=== PATIENT | female | born 1960 | race Hispanic/Latino ===

== ENCOUNTER 2017-05-18 15:55 | Inpatient (IN) | payer MEDICARE, MEDICAID ==
[2017-05-18 15:55] VITALS: BMI 26.3
[2017-05-18] MEDS ORDERED: Albuterol-Ipratrop 3 mg / 0.5 (3 ml) UD IH STA ×2 (16:20→16:21)
--- NOTE | 2017-05-18 16:27 | ED PDOC ---
HPI: SOB/CHF/COPD Time Seen by Provider: 05/18/17 16:13 Chief Complaint (Nursing): Shortness Of Breath Chief Complaint (Provider): Shortness Of Breath History Per: Patient History/Exam Limitations: no limitations Onset/Duration Of Symptoms: Days (x 4-5 days) Current Symptoms Are (Timing): Still Present Associated Symptoms: Productive Cough Additional Complaint(s): Keri is a 56 y/o female who with a past medical history of COPD, who presents to the ED complaining of progressive shortness of breath associated with cough, ongoing for 4-5 days. Cough is productive of white sputum, described as "different than normal". No improvement with nebulizer treatments and prednisone at home. Denies fever, dysuria, and abdominal pain. Patient also complaining of urinary frequency. PMD: Randy Interiano Past Medical History Reviewed: Historical Data, Nursing Documentation, Vital Signs Vital Signs: Last Vital Signs Temp 99.2 F 05/18/17 15:57 Pulse 106 H 05/18/17 15:57 Resp 24 05/18/17 15:57 BP 159/92 H 05/18/17 15:57 Pulse Ox 98 05/18/17 16:52 - Medical History PMH: Anxiety, Asthma, Back Problems, COPD, Pneumothorax Denies: Arthritis, CHF, HIV, HTN, Hypercholesterolemia, Hypothyroidism, Chronic Kidney Disease, Rheumatoid Arthritis - Family History Family History: States: Unknown Family Hx - Home Medications Home Medications: Ambulatory Orders Medication Instructions Recorded Alprazolam [Xanax] 0.5 mg PO BID PRN 04/17/16 Acetylcysteine [Mucomyst 10% 4ML] 2 ml IH RBID #30 mary 09/22/16 Albuterol/Ipratropium [Duoneb 3 3 ml INH RQ4 PRN #30 neb 09/22/16 mg/0.5 mg (3 ml) UD] Albuterol/Ipratropium [Duoneb 3 3 ml INH RQID #30 neb 09/22/16 mg/0.5 mg (3 ml) UD] Cholecalciferol [Vitamin D 1000 IU] 1,000 iu PO DAILY #30 tab 09/22/16 Fluticasone Propionate [Flonase] 2 spr KIRBY HS #1 bottle 09/22/16 Mometasone [Asmanex Twisthaler 110 1 puff INH BID #1 inhaler 09/22/16 MCG] Pantoprazole [Protonix EC Tab] 40 mg PO DAILY #30 ect 09/22/16 Sodium Chloride Nasal [place] [[place] 1 sprays KIRBY Q4 PRN #1 bottle 09/22/16 Nasal [place]] guaiFENesin [Robitussin] 200 mg PO Q6 PRN #30 udc 09/22/16 oxyCODONE/Acetaminophen [Percocet 1 tab PO Q6 PRN #30 tab 09/22/16 5/325 mg Tab] - Allergies Allergies/Adverse Reactions: Allergies Allergy/AdvReac Type Severity Reaction Status Date / Time Sulfa (Sulfonamide Allergy RASH Verified 09/22/16 15:53 Antibiotics) Review of Systems ROS Statement: Except As Marked, All Systems Reviewed And Found Negative Constitutional: Negative for: Fever Respiratory: Positive for: Cough, Shortness of Breath, Sputum (white) Gastrointestinal: Negative for: Abdominal Pain Genitourinary Female: Positive for: Frequency. Negative for: Dysuria Physical Exam - Reviewed Nursing Documentation Reviewed: Yes Vital Signs Reviewed: Yes - Physical Exam Appears: Positive for: Non-toxic, No Acute Distress Head Exam: Positive for: ATRAUMATIC, NORMAL INSPECTION, NORMOCEPHALIC Skin: Positive for: Normal Color, Warm, Dry Eye Exam: Positive for: EOMI, Normal appearance, PERRL Neck: Positive for: Normal, Painless ROM, Supple Cardiovascular/Chest: Positive for: Regular Rate, Rhythm. Negative for: Murmur Respiratory: Positive for: Decreased Breath Sounds (diminished breath sounds bilaterally), Respiratory Distress (mild). Negative for: Wheezing Gastrointestinal/Abdominal: Positive for: Normal Exam, Soft. Negative for: Tenderness Back: Positive for: Normal Inspection. Negative for: Vertebral Tenderness Extremity: Positive for: Normal ROM. Negative for: Tenderness, Deformity, Swelling Neurologic/Psych: Positive for: Alert, Oriented - Laboratory Results Result Diagrams: 05/18/17 16:30 - ECG O2 Sat by Pulse Oximetry: 96 (RA) Pulse Ox Interpretation: Normal Medical Decision Making Medical Decision Making: Time: 16:01 Initial Plan: --EKG --CMP --Urine dipstick --Urine culture --CXR 2 views --Duoneb and Solu-medrol treatment given --Peak Flow pre/post treatment --Reevaluation Scribe Attestation: Documented by Winnie Gary, acting as a scribe for Hussain Bass MD Provider Scribe Attestation: All medical record entries made by the Scribe were at my direction and personally dictated by me. I have reviewed the chart and agree that the record accurately reflects my personal performance of the history, physical exam, medical decision making, and the department course for this patient. I have also personally directed, reviewed, and agree with the discharge instructions and disposition. Disposition - Clinical Impression Clinical Impression: COPD exacerbation - Patient ED Disposition Is Patient to be Admitted: Yes - Disposition Disposition Time: 17:54 Condition: FAIR Forms: Shut Down (Slovenian) - Pt Status Changed To: Hospital Disposition Of: Observation - POA Present On Arrival: None
[2017-05-18] MEDS ORDERED: Albuterol-Ipratrop 3 mg / 0.5 (3 ml) UD ONE (16:38)
[2017-05-18 16:56] LABS: ALB/GLOB RATIO 1.5 (1.0-2.1); ALBUMIN 4.2 g/dL (3.5-5.0); ALT/SGPT 43 U/L (9-52); AST/SGOT 24 U/L (14-36); BLOOD UREA NITROGEN 20 mg/dl (7-17); CALCIUM 9.6 mg/dL (8.4-10.2); GFR AFRICAN-AMERICAN > 60; GFR NON-AFRICAN AMERICAN > 60
--- NOTE | 2017-05-18 17:12 | RAD ---
HISTORY: Shortness of breath. COMPARISON: 09/15/2016. TECHNIQUE: Chest PA and lateral FINDINGS: LUNGS: Hyperinflation, manifestations of COPD. No active pulmonary disease. Biapical scarring unchanged. PLEURA: No significant pleural effusion identified. No pneumothorax apparent. CARDIOVASCULAR: Normal. OSSEOUS STRUCTURES: No significant abnormalities. VISUALIZED UPPER ABDOMEN: Normal. OTHER FINDINGS: None. IMPRESSION: No active disease. No significant interval change compared to the prior examination(s).
[2017-05-18 18:02] LABS: BASO % 0.3 % (0.0-2.0); EOS % 0.1 % (0.0-4.0); HEMOGLOBIN 13.6 g/dL (12.0-16.0); LYMPH # 1.6 K/uL (1.0-4.3); LYMPH % 13.3 % (20.0-40.0); MEAN CELL VOLUME 91.9 fl (81.0-99.0); MEAN CORPUSCULAR HEMOGLOBIN 29.9 pg (27.0-31.0); MEAN CORPUSCULAR HGB CONC 32.5 g/dL (33.0-37.0); MEAN PLATELET VOLUME 7.6 fl (7.2-11.7); MONO # 1.3 K/uL (0.0-0.8); MONO % 10.3 % (0.0-10.0); NEUT # 9.2 K/uL (1.8-7.0); RBC 4.55 Mil/uL (3.80-5.20); RED CELL DISTRIBUTION WIDTH 14.3 % (11.5-14.5); WHITE BLOOD COUNT 12.1 K/uL (4.8-10.8)
[2017-05-18] MEDS ORDERED: Nasal Spray(Ocean spray) NAS PRN (22:07)
[2017-05-18] MEDS: Albuterol-Ipratrop 3 mg / 0.5 (3 ml) UD INH PRN (23:26)
[2017-05-19] MEDS: methylPREDNISolone 40 MG/50ML NS IVPB SCH ×3 (00:43→17:24)
[2017-05-19] MEDS: Albuterol-Ipratrop 3 mg / 0.5 (3 ml) UD INH PRN ×2 (05:03→07:46)
[2017-05-19] MEDS: Acetylcysteine 10% 4 ML IH SCH ×2 (07:46→19:30)
[2017-05-19] MEDS: Enoxaparin 40 mg Syringe SC SCH (09:09)
[2017-05-19] MEDS: Mometasone 110 mcg/puff-30 puff Inh INH SCH ×2 (09:10→17:24)
[2017-05-19] MEDS: Pantoprazole 40 mg EC Tab PO SCH (09:10)
[2017-05-19] MEDS: guaiFENesin 200 mg/10 ml Syrup UD PO PRN ×2 (09:24→21:43)
[2017-05-19] MEDS: Oxycodone/Acetaminophen 5/325 mg Tab PO PRN (09:25)
[2017-05-19] MEDS ORDERED: Sodium Chloride 3% for Inhalation 4 ML VIAL.NEB IH PRN (10:12)
--- NOTE | 2017-05-19 10:19 | CP.PCM.CON ---
History of Present Illness - History of Present Illness History of Present Illness: This 56 year old female, a former cigarette smoker who suffers from pulmonary MICHELLE at an advanced stage was admitted through the emergency room because of worsening SOB and productive cough which has not responded to the usual therapies at home. She did present with leukocytosis and pyuria without fever and a chest x-ray showing hyperinflation and biapical parenchymal scarring. She does have previously diagnosed JIMENEZ after she presented with spontaneous pneumothorax which is complicated by bronchospastic disease from associated COPD. She is oxygen dependant at home and is seeking evaluation for possible lung transplant. She has adequate oxygenation at rest on supplemental O2, but is markedly dyspneic with simple activities of daily life. Review of Systems - Review of Systems All systems: reviewed and no additional remarkable complaints except - Constitutional Constitutional: Fatigue, Malaise, Weight Gain, Weakness - Respiratory Respiratory: As Per HPI, Cough, Dyspnea Past Patient History - Past Medical History & Family History Past Medical History?: Yes Pertinent Family History: lung cancer - Past Social History Smoking Status: Former Smoker Chewing Tobacco Use: No Cigar Use: No Alcohol: Other (former moderate intake) Drugs: Denies Home Situation {Lives}: Alone - CARDIAC Hx Cardiac Disorders: No - PULMONARY Hx Chronic Obstructive Pulmonary Disease (COPD): Yes Other/Comment: Lymphangioleiomyomatosis - NEUROLOGICAL Hx Neurological Disorder: No Other/Comment: History of Chronic Fatigue Syndrome; may have been incorrectly diagnosed with fatigue resulting from chronic lung disease (JIMENEZ). - HEENT Hx HEENT Problems: No - RENAL Hx Chronic Kidney Disease: No - ENDOCRINE/METABOLIC Hx Endocrine Disorders: No - HEMATOLOGICAL/ONCOLOGICAL Hx Blood Disorders: No Hx Human Immunodeficiency Virus (HIV): No - INTEGUMENTARY Hx Dermatological Problems: No - MUSCULOSKELETAL/RHEUMATOLOGICAL Hx Back Pain: Yes Hx Falls: No - GASTROINTESTINAL Hx Gastrointestinal Disorders: No - GENITOURINARY/GYNECOLOGICAL Other/Comment: endometriosis,uterine fibroids - PSYCHIATRIC Hx Anxiety: Yes Hx Substance Use: No - SURGICAL HISTORY Hx Pulmonary Surgery: Yes (VATS lung biopsy and pleurodesis) Other/Comment: breast cyst removal (benign), D&C for uterine fibroids, chest tube x2 (spontaneous pneumothorax) with ling biopsy done on second episode. - ANESTHESIA Hx Anesthesia: Yes Hx Anesthesia Reactions: No Hx Malignant Hyperthermia: No Has any member of the family had a problem w/ anesthesia?: No Meds Allergies/Adverse Reactions: Allergies Allergy/AdvReac Type Severity Reaction Status Date / Time Sulfa (Sulfonamide Allergy RASH Verified 09/22/16 15:53 Antibiotics) - Medications Medications: Current Medications Acetylcysteine (Mucomyst 10% 4ml) 2 ml IH RBID [facility] Last Admin: 05/19/17 07:46 Dose: 2 ml Albuterol Sulfate (Albuterol 0.083% Inhal [place]idad (2.5 Mg/3 Ml) Ud) 2.5 mg INH RQ4 PRN PRN Reason: Shortness of Breath Albuterol/Ipratropium (Duoneb 3 Mg/0.5 Mg (3 Ml) Ud) 3 ml INH RQID DENISSE Alprazolam (Xanax) 0.5 mg PO BID PRN PRN Reason: Anxiety Cholecalciferol (Vitamin D) 1,000 iu PO DAILY [facility] Last Admin: 05/19/17 09:11 Dose: 1,000 iu Enoxaparin Sodium (Lovenox) 40 mg SC DAILY DENISSE PRN Reason: Protocol Last Admin: 05/19/17 09:09 Dose: 40 mg Fluticasone Propionate (Flonase) 2 spr KIRBY HS [facility] Guaifenesin (Robitussin) 200 mg PO Q6 PRN PRN Reason: Cough Last Admin: 05/19/17 09:24 Dose: 200 mg Methylprednisolone 40 mg/ (Sodium Chloride) 50 mls @ 100 mls/hr IVPB Q8 [facility] Last Admin: 05/19/17 09:10 Dose: 100 mls/hr Mometasone Furoate (Asmanex Twisthaler 110 Mcg) 1 puff INH BID [facility] Last Admin: 05/19/17 09:10 Dose: 1 puff Oxycodone/Acetaminophen (Percocet 5/325 Mg Tab) 1 tab PO Q6 PRN PRN Reason: Pain, moderate (4-7) Stop: 05/21/17 22:08 Last Admin: 05/19/17 09:25 Dose: 1 tab Pantoprazole Sodium (Protonix Ec Tab) 40 mg PO DAILY [facility] Last Admin: 05/19/17 09:10 Dose: 40 mg Sodium Chloride ([place] Nasal [place]) 1 sprays KIRBY Q4 PRN PRN Reason: Nasal congestion Physical Exam - Additional Findings Additional findings: Tachypneic at rest. Well-developed female, mildly overweight. Cushingoid facies. Trace dependent edema of both ankles, no cyanosis. No calf tenderness or palpable venous cords. No palpable lymphadenopathy. Pharynx is pink and mucous membranes are moist. No exudate. Neck is supple and trachea is midline, no neck vein distention or carotid bruit. No palpable thyromegaly. No dullness to chest percussion. No subcutaneous emphysema. Breath sounds are present bilaterally, diminished. Inspiratory phase appears shortened. Few dry rales are heard posteriorly. Occasional sonorous rhonchi in the lower lobes bilaterally. No audible wheezing. No bronchial breathing or egophony. Heart sounds are well heard. Mildly tachycardic rate. No murmur is heard. Abdomen is soft and nontender. Bowel sounds are well heard. No mass. Results - Vital Signs Recent Vital Signs: Last Vital Signs Temp 97.8 F 05/19/17 08:00 Pulse 80 05/19/17 08:00 Resp 18 05/19/17 08:00 BP 136/85 05/19/17 08:00 Pulse Ox 100 05/19/17 08:00 - Labs Result Diagrams: 05/18/17 17:50 05/18/17 16:30 Assessment & Plan (1) SOB (shortness of breath) Status: Acute Priority: High (2) Lymphangioleiomyomatosis Status: Chronic Priority: High (3) COPD exacerbation Status: Chronic Priority: High - Assessment and Plan (Free Text) Plan: Treat for exacerbation of COPD. Hopefully obtain increased home care allowance. [facility] - Date & Time Date: 05/19/17 Time: 10:18
--- NOTE | 2017-05-19 10:45 | PCM.RRTMUL ---
<Alyson Lincoln - Last Filed: 05/19/17 10:48> PSYCHOLOGIST RESEARCH ASSISTANT Nurse Assessment - Situation Location:: [address] [place] [address] PSYCHOLOGIST RESEARCH ASSISTANT Reason for Call: Respiratory Distress, O2 Saturation below 90% PSYCHOLOGIST RESEARCH ASSISTANT Called By: RN - IV IV Inserted during PSYCHOLOGIST RESEARCH ASSISTANT?: No - Respiratory Oxygen Delivery Method:: Venturi Mask Received Nebulizer Treatments:: No Was the Patient Ventilated with Bag/Mask 100% O2?: No Secretions Suctioned?: No Was the Patient Intubated?: No Was the Patient Placed on a Ventilator?: No - Diagnostic Test Ordered EKG:: No Chest X-Ray:: No CT Scan:: No CPR started during PSYCHOLOGIST RESEARCH ASSISTANT?: No - Vital Signs Blood Pressure:: 172/108 Pulse Rate:: 120 Respiratory Rate:: 40 Temperature:: 97.4 F Oxygen Saturation:: 68 - Gavin Coma Scale Coma Scale Eye Opening:: Spontaneous Coma Scale Motor:: Obeys Commands Movement Coma Scale Verbal:: Oriented Coma Scale Total:: 15 - Time PSYCHOLOGIST RESEARCH ASSISTANT Ended Time PSYCHOLOGIST RESEARCH ASSISTANT Ended:: 10:20 - Vital Signs at end of PSYCHOLOGIST RESEARCH ASSISTANT Blood Pressure:: 164/103 Pulse Rate:: 123 Respiratory Rate:: 35 Temperature:: 97.4 F O2 Sat by Pulse Oximetry:: 97 - Recommendations 5) PSYCHOLOGIST RESEARCH ASSISTANT Level of Care Recommendations: Remain in current setting 6) Notifications: Attending Physician, Consultations I.Reason for PSYCHOLOGIST RESEARCH ASSISTANT - A) Acute Change in Patient: Subjective: PSYCHOLOGIST RESEARCH ASSISTANT called at 10:03 am Pt is a 56 yo F with history of COPD, admitted for shortness of breath and COPD exacerbation; PSYCHOLOGIST RESEARCH ASSISTANT was called by RN due to O2 desaturation to 68%. Vital signs on arrival: BP 174/120, HR 122, RR 35 Patient appeared visibly short of breath, was using accessory muscles to breathe , but was able to speak throughout the PSYCHOLOGIST RESEARCH ASSISTANT. Decreased lung sounds bilaterally. Patient was placed on venturi mask at 10 L; O2 sat improved and antonia to 98%, pt' s condition and breathing improved. On exam post treatment, pt had decreased breath sounds/tightness. At the end of PSYCHOLOGIST RESEARCH ASSISTANT: BP came down to 151/89, HR 122, O2 sat 98%, RR 30 PSYCHOLOGIST RESEARCH ASSISTANT concluded 10:18 am Plan: Keep pt on venturi mask at 10L Continue current management Dr. Interiano (senior information systems architect consulted prior to PSYCHOLOGIST RESEARCH ASSISTANT) was present during PSYCHOLOGIST RESEARCH ASSISTANT as well <Helen Ayala - Last Filed: 05/19/17 19:18> Attending/Attestation - Attestation I have personally seen and examined this patient.: Yes I have fully participated in the care of the patient.: Yes I have reviewed all pertinent clinical information, including history, physical exam and plan: Yes Notes (Text): Pt seen and examined with the residents during the PSYCHOLOGIST RESEARCH ASSISTANT Acute on chronic Respiratory Failure sec to COPD exacerbation, Hx of JIMENEZ - pt place on Ventimask at 50% FiO2 - Duoneb neb treatment - cont IV Solumedrol - Dr Interiano - pt's District Associate Judge present during the PSYCHOLOGIST RESEARCH ASSISTANT
[2017-05-19] MEDS: Albuterol-Ipratrop 3 mg / 0.5 (3 ml) UD INH SCH ×2 (19:30)
--- NOTE | 2017-05-19 20:11 | CP.PCM.HP ---
History of Present Illness - History of Present Illness History of Present Illness: 56 yo admitted for SOB Present on Admission - Present on Admission Any Indicators Present on Admission: No Past Patient History - Past Medical History & Family History Past Medical History?: Yes - Past Social History Smoking Status: Former Smoker - CARDIAC Hx Cardiac Disorders: No - PULMONARY Hx Respiratory Disorders: Yes Hx Asthma: Yes Hx Chronic Obstructive Pulmonary Disease (COPD): Yes - NEUROLOGICAL Hx Neurological Disorder: No - HEENT Hx HEENT Problems: No - RENAL Hx Chronic Kidney Disease: No - ENDOCRINE/METABOLIC Hx Endocrine Disorders: No - HEMATOLOGICAL/ONCOLOGICAL Hx Blood Disorders: No Hx Human Immunodeficiency Virus (HIV): No - INTEGUMENTARY Hx Dermatological Problems: No - MUSCULOSKELETAL/RHEUMATOLOGICAL Hx Musculoskeletal Disorders: Yes Hx Back Pain: Yes Hx Falls: No - GASTROINTESTINAL Hx Gastrointestinal Disorders: No - GENITOURINARY/GYNECOLOGICAL Hx Genitourinary Disorders: Yes Other/Comment: endometriosis,uterine fibroids - PSYCHIATRIC Hx Psychophysiologic Disorder: Yes Hx Anxiety: Yes Hx Substance Use: No - SURGICAL HISTORY Hx Surgeries: Yes Hx Pulmonary Surgery: Yes (VATS lung biopsy and pleurodesis) Other/Comment: breast cyst removal(benign),D&C for uterine fibroids, chest tube x2 (spontaneous pneumothorax). - ANESTHESIA Hx Anesthesia: Yes Hx Anesthesia Reactions: No Hx Malignant Hyperthermia: No Has any member of the family had a problem w/ anesthesia?: No Meds Allergies/Adverse Reactions: Allergies Allergy/AdvReac Type Severity Reaction Status Date / Time Sulfa (Sulfonamide Allergy RASH Verified 09/22/16 15:53 Antibiotics) Physical Exam - Respiratory Exam Respiratory Exam: Respiratory Distress, NORMAL BREATHING PATTERN - Cardiovascular Exam Cardiovascular Exam: REGULAR RHYTHM - GI/Abdominal Exam GI & Abdominal Exam: Normal Bowel Sounds Results - Vital Signs Recent Vital Signs: Last Vital Signs Temp 97.7 F 05/19/17 16:00 Pulse 100 H 05/19/17 16:00 Resp 18 05/19/17 16:00 BP 122/81 05/19/17 16:00 Pulse Ox 100 05/19/17 16:00 - Labs Result Diagrams: 05/18/17 17:50 05/18/17 16:30 Assessment & Plan - Assessment and Plan (Free Text) Assessment: COPD Lymphangioleiomyomatosis S/P MAGAZINE WORKER Hypoxemia Pulmonary B-agonists Steroids Lung transplant ?? UTI culture Obesity Chronic Pain Cont meds Mood changes No major depression HDL 146!
[2017-05-20] MEDS: methylPREDNISolone 40 MG/50ML NS IVPB SCH ×2 (00:03→09:26)
[2017-05-20] MEDS: Oxycodone/Acetaminophen 5/325 mg Tab PO PRN ×3 (00:46→21:05)
[2017-05-20 01:55] LABS: SQUAMOUS EPITHIAL 1 /hpf (0-5); URINE BACTERIA OCC (<OCC); URINE BILIRUBIN NEGATIVE (NEGATIVE); URINE CLARITY SLIGHTY-CLOUDY (Clear); URINE COLOR YELLOW (YELLOW); URINE GLUCOSE (UA) NEG (Normal); URINE LEUKOCYTE ESTERASE MOD Leu/uL (Negative); URINE NITRATE NEGATIVE (NEGATIVE); URINE PROTEIN NEGATIVE (NEGATIVE); URINE UROBILINOGEN 0.2-1.0 mg/dL (0.2-1.0)
[2017-05-20 02:02] LABS: URINE BLOOD SMALL (NEGATIVE)
[2017-05-20] MEDS: Albuterol 0.083% Inhal Sol (2.5 mg/3 mL) UD INH PRN (02:52)
[2017-05-20] MEDS: guaiFENesin 200 mg/10 ml Syrup UD PO PRN ×3 (06:54→22:52)
[2017-05-20] MEDS: Albuterol-Ipratrop 3 mg / 0.5 (3 ml) UD INH SCH ×4 (07:29→19:11)
[2017-05-20] MEDS: Acetylcysteine 10% 4 ML IH SCH ×2 (07:29→19:11)
--- NOTE | 2017-05-20 07:43 | CARD ---
APPROVED REPORT EKG Measurement Heart [id number] <Conclusion> Sinus tachycardia Right atrial enlargement Pulmonary disease pattern Abnormal ECG
[2017-05-20] MEDS: Pantoprazole 40 mg EC Tab PO SCH (09:20)
[2017-05-20] MEDS: Enoxaparin 40 mg Syringe SC SCH (09:20)
[2017-05-20] MEDS: Mometasone 110 mcg/puff-30 puff Inh INH SCH (09:20)
--- NOTE | 2017-05-20 11:26 | CP.PCM.PN ---
Subjective - Date & Time of Evaluation Date of Evaluation: 05/20/17 Time of Evaluation: 11:23 - Subjective Subjective: More comfortable on venti-mask. Still tachypneic @ 22 BPM. Oxygen saturation is good. Flushed facies with mild cushingoid effect. Neck is supple and trachea midline. No dullness on chest percussion. No rales or wheezes heard. Few rhonchi bilaterally. Breath sounds are decreased bilaterally. Begin NPPV support nocturnally to allow rest for respiratory muscles. Continue O2 via mask for daytime. Reduce corticosteroid dose. Case management referral for home [facility] Consider beginning sirolimus immune suppressive therapy. Objective - Vital Signs/Intake and Output Vital Signs (last 24 hours): Temp Pulse Resp BP Pulse Ox 98.2 F 97 H 18 133/78 100 05/20/17 08:02 05/20/17 09:00 05/20/17 08:02 05/20/17 08:02 05/20/17 08:02 Intake and Output: 05/19/17 05/20/17 23:59 11:59 Intake Total 810 Balance 810 - Medications Medications: Current Medications Acetylcysteine (Mucomyst 10% 4ml) 2 ml IH RBID [facility] Last Admin: 05/20/17 07:29 Dose: 2 ml Albuterol Sulfate (Albuterol 0.083% Inhal [place] (2.5 Mg/3 Ml) Ud) 2.5 mg INH RQ4 PRN PRN Reason: Shortness of Breath Last Admin: 05/20/17 02:52 Dose: 2.5 mg Albuterol/Ipratropium (Duoneb 3 Mg/0.5 Mg (3 Ml) Ud) 3 ml INH RQID DENISSE Last Admin: 05/20/17 07:29 Dose: 3 ml Alprazolam (Xanax) 0.5 mg PO BID PRN PRN Reason: Anxiety Cholecalciferol (Vitamin D) 1,000 iu PO DAILY [facility] Last Admin: 05/20/17 09:20 Dose: 1,000 iu Enoxaparin Sodium (Lovenox) 40 mg SC DAILY DENISSE PRN Reason: Protocol Last Admin: 05/20/17 09:20 Dose: 40 mg Fluticasone Propionate (Flonase) 2 spr KIRBY HS [facility] Last Admin: 05/19/17 21:42 Dose: 2 spr Guaifenesin (Robitussin) 200 mg PO Q6 PRN PRN Reason: Cough Last Admin: 05/20/17 06:54 Dose: 200 mg Methylprednisolone 40 mg/ (Sodium Chloride) 50 mls @ 100 mls/hr IVPB Q12 [facility] Mometasone Furoate (Asmanex Twisthaler 110 Mcg) 1 puff INH BID [facility] Last Admin: 05/20/17 09:20 Dose: 1 puff Oxycodone/Acetaminophen (Percocet 5/325 Mg Tab) 1 tab PO Q6 PRN PRN Reason: Pain, moderate (4-7) Stop: 05/21/17 22:08 Last Admin: 05/20/17 00:46 Dose: 1 tab Pantoprazole Sodium (Protonix Ec Tab) 40 mg PO DAILY [facility] Last Admin: 05/20/17 09:20 Dose: 40 mg Sodium Chloride ([place] Nasal [place]) 1 sprays KIRBY Q4 PRN PRN Reason: Nasal congestion Assessment and Plan (1) SOB (shortness of breath) Status: Acute (2) Lymphangioleiomyomatosis Status: Chronic (3) COPD exacerbation Status: Chronic
--- NOTE | 2017-05-20 19:09 | CP.PCM.PN ---
Subjective - Date & Time of Evaluation Date of Evaluation: 05/20/17 Time of Evaluation: 22:22 - Subjective Subjective: Above noted Objective - Vital Signs/Intake and Output Vital Signs (last 24 hours): Temp Pulse Resp BP Pulse Ox 98.5 F 94 H 16 122/75 99 05/20/17 16:35 05/20/17 16:35 05/20/17 16:35 05/20/17 16:35 05/20/17 16:35 - Medications Medications: Current Medications Acetylcysteine (Mucomyst 10% 4ml) 2 ml IH RBID [facility] Last Admin: 05/20/17 07:29 Dose: 2 ml Albuterol Sulfate (Albuterol 0.083% Inhal [place]idad (2.5 Mg/3 Ml) Ud) 2.5 mg INH RQ4 PRN PRN Reason: Shortness of Breath Last Admin: 05/20/17 02:52 Dose: 2.5 mg Albuterol/Ipratropium (Duoneb 3 Mg/0.5 Mg (3 Ml) Ud) 3 ml INH RQID [facility] Last Admin: 05/20/17 11:25 Dose: 3 ml Alprazolam (Xanax) 0.5 mg PO BID PRN PRN Reason: Anxiety Cholecalciferol (Vitamin D) 1,000 iu PO DAILY [facility] Last Admin: 05/20/17 09:20 Dose: 1,000 iu Enoxaparin Sodium (Lovenox) 40 mg SC DAILY DENISSE PRN Reason: Protocol Last Admin: 05/20/17 09:20 Dose: 40 mg Fluticasone Propionate (Flonase) 2 spr KIRBY HS [facility] Last Admin: 05/19/17 21:42 Dose: 2 spr Guaifenesin (Robitussin) 200 mg PO Q6 PRN PRN Reason: Cough Last Admin: 05/20/17 15:32 Dose: 200 mg Methylprednisolone 40 mg/ (Sodium Chloride) 50 mls @ 100 mls/hr IVPB Q12 [facility] Mometasone Furoate (Asmanex Twisthaler 110 Mcg) 1 puff INH BID [facility] Last Admin: 05/20/17 09:20 Dose: 1 puff Oxycodone/Acetaminophen (Percocet 5/325 Mg Tab) 1 tab PO Q6 PRN PRN Reason: Pain, moderate (4-7) Stop: 05/21/17 22:08 Last Admin: 05/20/17 14:07 Dose: 1 tab Pantoprazole Sodium (Protonix Ec Tab) 40 mg PO DAILY DENISSE Last Admin: 05/20/17 09:20 Dose: 40 mg Sodium Chloride ([place] Nasal [place]) 1 sprays KIRBY Q4 PRN PRN Reason: Nasal congestion - Respiratory Exam Respiratory Exam: Respiratory Distress, NORMAL BREATHING PATTERN - Cardiovascular Exam Cardiovascular Exam: REGULAR RHYTHM - GI/Abdominal Exam GI & Abdominal Exam: Normal Bowel Sounds Assessment and Plan - Assessment and Plan (Free Text) Assessment: COPD Lymphangioleiomyomatosis Hypoxemia NPPV Pulmonary B-agonists Steroids Lung transplant ?? UTI culture Obesity Chronic Pain Cont meds Mood changes No major depression HDL 146!
[2017-05-20] MEDS: methylPREDNISolone 40 MG in Sodium Chloride 0.9% 50 ML IVPB SCH (21:41)
[2017-05-21] MEDS: Oxycodone/Acetaminophen 5/325 mg Tab PO PRN ×2 (03:51→19:20)
[2017-05-21] MEDS: Acetylcysteine 10% 4 ML IH SCH ×2 (07:14→19:07)
[2017-05-21] MEDS: Albuterol-Ipratrop 3 mg / 0.5 (3 ml) UD INH SCH ×4 (07:15→19:07)
[2017-05-21] MEDS: Mometasone 110 mcg/puff-30 puff Inh INH SCH ×2 (08:34→16:44)
[2017-05-21] MEDS: Enoxaparin 40 mg Syringe SC SCH (08:34)
[2017-05-21] MEDS: Pantoprazole 40 mg EC Tab PO SCH (08:35)
[2017-05-21] MEDS: guaiFENesin 200 mg/10 ml Syrup UD PO PRN ×2 (10:36→16:44)
[2017-05-21] MEDS: methylPREDNISolone 40 MG in Sodium Chloride 0.9% 50 ML IVPB SCH ×2 (11:01→21:16)
--- NOTE | 2017-05-21 20:40 | CP.PCM.PN ---
Subjective - Date & Time of Evaluation Date of Evaluation: 05/21/17 Time of Evaluation: 22:22 - Subjective Subjective: Above noted Objective - Vital Signs/Intake and Output Vital Signs (last 24 hours): Temp Pulse Resp BP Pulse Ox 97.8 F 110 H 16 128/78 98 05/21/17 20:02 05/21/17 20:02 05/21/17 20:02 05/21/17 20:02 05/21/17 20:02 Intake and Output: 05/21/17 05/22/17 18:59 06:59 Intake Total 750 Balance 750 - Medications Medications: Current Medications Acetylcysteine (Mucomyst 10% 4ml) 2 ml IH RBID [facility] Last Admin: 05/21/17 19:07 Dose: 2 ml Albuterol Sulfate (Albuterol 0.083% Inhal [place]idad (2.5 Mg/3 Ml) Ud) 2.5 mg INH RQ4 PRN PRN Reason: Shortness of Breath Last Admin: 05/20/17 02:52 Dose: 2.5 mg Albuterol/Ipratropium (Duoneb 3 Mg/0.5 Mg (3 Ml) Ud) 3 ml INH RQID [facility] Last Admin: 05/21/17 19:07 Dose: 3 ml Alprazolam (Xanax) 0.5 mg PO BID PRN PRN Reason: Anxiety Cholecalciferol (Vitamin D) 1,000 iu PO DAILY [facility] Last Admin: 05/21/17 08:35 Dose: 1,000 iu Enoxaparin Sodium (Lovenox) 40 mg SC DAILY [facility] PRN Reason: Protocol Last Admin: 05/21/17 08:34 Dose: 40 mg Fluticasone Propionate (Flonase) 2 spr KIRBY HS [facility] Last Admin: 05/20/17 22:00 Dose: 2 spr Guaifenesin (Robitussin) 200 mg PO Q6 PRN PRN Reason: Cough Last Admin: 05/21/17 16:44 Dose: 200 mg Methylprednisolone 40 mg/ (Sodium Chloride) 50 mls @ 100 mls/hr IVPB Q12 [facility] Last Admin: 05/21/17 11:01 Dose: 100 mls/hr Mometasone Furoate (Asmanex Twisthaler 110 Mcg) 1 puff INH BID [facility] Last Admin: 05/21/17 16:44 Dose: 1 puff Oxycodone/Acetaminophen (Percocet 5/325 Mg Tab) 1 tab PO Q6 PRN PRN Reason: Pain, moderate (4-7) Stop: 05/21/17 22:08 Last Admin: 05/21/17 19:20 Dose: 1 tab Pantoprazole Sodium (Protonix Ec Tab) 40 mg PO DAILY [facility] Last Admin: 05/21/17 08:35 Dose: 40 mg Sodium Chloride ([place] Nasal [place]) 1 sprays KIRBY Q4 PRN PRN Reason: Nasal congestion Last Admin: 05/20/17 21:42 Dose: 1 spray - Respiratory Exam Respiratory Exam: NORMAL BREATHING PATTERN - Cardiovascular Exam Cardiovascular Exam: REGULAR RHYTHM - GI/Abdominal Exam GI & Abdominal Exam: Normal Bowel Sounds Assessment and Plan - Assessment and Plan (Free Text) Assessment: COPD Lymphangioleiomyomatosis Hypoxemia NPPV Pulmonary B-agonists Steroids Lung transplant ?? UTI culture ?? repeat u/a and culture Obesity Chronic Pain Cont meds Mood changes No major depression HDL 146!
[2017-05-21] MEDS: Albuterol 0.083% Inhal Sol (2.5 mg/3 mL) UD INH PRN (23:44)
[2017-05-22] MEDS ORDERED: Oxycodone/Acetaminophen 5/325 mg Tab PO ONE (05:25)
[2017-05-22] MEDS: Acetylcysteine 10% 4 ML IH SCH ×2 (07:50→19:39)
[2017-05-22] MEDS: Albuterol-Ipratrop 3 mg / 0.5 (3 ml) UD INH SCH ×4 (07:50→19:39)
--- NOTE | 2017-05-22 08:22 | CP.PCM.PN ---
Subjective - Date & Time of Evaluation Date of Evaluation: 05/22/17 Time of Evaluation: 22:22 - Subjective Subjective: Improved today Objective - Vital Signs/Intake and Output Vital Signs (last 24 hours): Temp Pulse Resp BP Pulse Ox 98 F 76 18 126/83 100 05/22/17 08:15 05/22/17 08:15 05/22/17 08:15 05/22/17 08:15 05/22/17 08:15 - Medications Medications: Current Medications Acetylcysteine (Mucomyst 10% 4ml) 2 ml IH RBID [facility] Last Admin: 05/22/17 07:50 Dose: 2 ml Albuterol Sulfate (Albuterol 0.083% Inhal [place] (2.5 Mg/3 Ml) Ud) 2.5 mg INH RQ4 PRN PRN Reason: Shortness of Breath Last Admin: 05/21/17 23:44 Dose: 2.5 mg Albuterol/Ipratropium (Duoneb 3 Mg/0.5 Mg (3 Ml) Ud) 3 ml INH RQID [facility] Last Admin: 05/22/17 07:50 Dose: 3 ml Alprazolam (Xanax) 0.5 mg PO BID PRN PRN Reason: Anxiety Cholecalciferol (Vitamin D) 1,000 iu PO DAILY [facility] Last Admin: 05/21/17 08:35 Dose: 1,000 iu Enoxaparin Sodium (Lovenox) 40 mg SC DAILY [facility] PRN Reason: Protocol Last Admin: 05/21/17 08:34 Dose: 40 mg Fluticasone Propionate (Flonase) 2 spr KIRYB HS [facility] Last Admin: 05/21/17 21:15 Dose: 2 spr Guaifenesin (Robitussin) 200 mg PO Q6 PRN PRN Reason: Cough Last Admin: 05/21/17 16:44 Dose: 200 mg Methylprednisolone 40 mg/ (Sodium Chloride) 50 mls @ 100 mls/hr IVPB Q12 [facility] Last Admin: 05/21/17 21:16 Dose: 100 mls/hr Mometasone Furoate (Asmanex Twisthaler 110 Mcg) 1 puff INH BID [facility] Last Admin: 05/21/17 16:44 Dose: 1 puff Oxycodone/Acetaminophen (Percocet 5/325 Mg Tab) 1 tab PO Q6 PRN PRN Reason: Pain, moderate (4-7) Stop: 05/25/17 07:26 Pantoprazole Sodium (Protonix Ec Tab) 40 mg PO DAILY [facility] Last Admin: 05/21/17 08:35 Dose: 40 mg Sodium Chloride ([place] Nasal [place]) 1 sprays KIRBY Q4 PRN PRN Reason: Nasal congestion Last Admin: 05/20/17 21:42 Dose: 1 spray - Respiratory Exam Respiratory Exam: NORMAL BREATHING PATTERN - Cardiovascular Exam Cardiovascular Exam: REGULAR RHYTHM - GI/Abdominal Exam GI & Abdominal Exam: Normal Bowel Sounds Assessment and Plan - Assessment and Plan (Free Text) Assessment: COPD Lymphangioleiomyomatosis Hypoxemia NPPV Pulmonary B-agonists Steroids Lung transplant ?? UTI culture ?? repeat u/a and culture Obesity Chronic Pain Cont meds Mood changes No major depression HDL 146!
[2017-05-22] MEDS: Pantoprazole 40 mg EC Tab PO SCH (08:35)
[2017-05-22] MEDS: Mometasone 110 mcg/puff-30 puff Inh INH SCH ×2 (08:35→17:26)
[2017-05-22] MEDS: Enoxaparin 40 mg Syringe SC SCH (08:35)
[2017-05-22] MEDS: methylPREDNISolone 40 MG in Sodium Chloride 0.9% 50 ML IVPB SCH ×2 (08:39→21:43)
[2017-05-22] MEDS: Oxycodone/Acetaminophen 5/325 mg Tab PO PRN ×2 (10:52→19:54)
[2017-05-22] MEDS: guaiFENesin 200 mg/10 ml Syrup UD PO PRN (10:54)
[2017-05-22 15:33] LABS: SQUAMOUS EPITHIAL 1 /hpf (0-5); URINE BILIRUBIN NEGATIVE (NEGATIVE); URINE BLOOD NEGATIVE (NEGATIVE); URINE CLARITY CLEAR (Clear); URINE COLOR YELLOW (YELLOW); URINE GLUCOSE (UA) NEG (Normal); URINE LEUKOCYTE ESTERASE NEG Leu/uL (Negative); URINE NITRATE NEGATIVE (NEGATIVE); URINE PROTEIN NEGATIVE (NEGATIVE); URINE UROBILINOGEN 0.2-1.0 mg/dL (0.2-1.0)
[2017-05-23] MEDS: Oxycodone/Acetaminophen 5/325 mg Tab PO PRN ×2 (06:35→23:14)
[2017-05-23] MEDS: Albuterol-Ipratrop 3 mg / 0.5 (3 ml) UD INH SCH ×5 (08:15→19:02)
[2017-05-23] MEDS: Acetylcysteine 10% 4 ML IH SCH ×2 (08:15→19:03)
[2017-05-23] MEDS: methylPREDNISolone 40 MG in Sodium Chloride 0.9% 50 ML IVPB SCH (08:22)
[2017-05-23] MEDS: Enoxaparin 40 mg Syringe SC SCH (08:23)
[2017-05-23] MEDS: Mometasone 110 mcg/puff-30 puff Inh INH SCH ×2 (08:23→16:50)
[2017-05-23] MEDS: Pantoprazole 40 mg EC Tab PO SCH (08:23)
[2017-05-23] MEDS: guaiFENesin 200 mg/10 ml Syrup UD PO PRN ×2 (09:08→16:53)
--- NOTE | 2017-05-23 10:22 | CP.PCM.PN ---
Subjective - Date & Time of Evaluation Date of Evaluation: 05/23/17 Time of Evaluation: 10:20 - Subjective Subjective: Seated up in bed. Appears much improved from the last visit. Still becomes dyspneic with conversation. Vital signs are stable. Inspiratory phase is shortened. No audible wheezes. No cyanosis. Good candidate for BRANDEN. Will contact [facility] transplant center. Objective - Vital Signs/Intake and Output Vital Signs (last 24 hours): Temp Pulse Resp BP Pulse Ox 97.9 F 85 18 157/98 H 98 05/23/17 08:06 05/23/17 08:06 05/23/17 08:06 05/23/17 08:06 05/23/17 08:06 Intake and Output: 05/22/17 05/23/17 23:59 11:59 Intake Total 650 Balance 650 - Medications Medications: Current Medications Acetylcysteine (Mucomyst 10% 4ml) 2 ml IH RBID [facility] Last Admin: 05/23/17 08:15 Dose: 2 ml Albuterol Sulfate (Albuterol 0.083% Inhal [place]idad (2.5 Mg/3 Ml) Ud) 2.5 mg INH RQ4 PRN PRN Reason: Shortness of Breath Last Admin: 05/21/17 23:44 Dose: 2.5 mg Albuterol/Ipratropium (Duoneb 3 Mg/0.5 Mg (3 Ml) Ud) 3 ml INH RQID [facility] Last Admin: 05/23/17 08:15 Dose: 3 ml Alprazolam (Xanax) 0.5 mg PO BID PRN PRN Reason: Anxiety Cholecalciferol (Vitamin D) 1,000 iu PO DAILY [facility] Last Admin: 05/23/17 08:23 Dose: 1,000 iu Enoxaparin Sodium (Lovenox) 40 mg SC DAILY [facility] PRN Reason: Protocol Last Admin: 05/23/17 08:23 Dose: 40 mg Fluticasone Propionate (Flonase) 2 spr KIRBY HS [facility] Last Admin: 05/22/17 21:43 Dose: 2 spr Guaifenesin (Robitussin) 200 mg PO Q6 PRN PRN Reason: Cough Last Admin: 05/23/17 09:08 Dose: 200 mg Methylprednisolone 40 mg/ (Sodium Chloride) 50 mls @ 100 mls/hr IVPB Q12 [facility] Last Admin: 05/23/17 08:22 Dose: 100 mls/hr Mometasone Furoate (Asmanex Twisthaler 110 Mcg) 1 puff INH BID [facility] Last Admin: 05/23/17 08:23 Dose: 1 puff Oxycodone/Acetaminophen (Percocet 5/325 Mg Tab) 1 tab PO Q6 PRN PRN Reason: Pain, moderate (4-7) Stop: 05/25/17 07:26 Last Admin: 05/23/17 06:35 Dose: 1 tab Pantoprazole Sodium (Protonix Ec Tab) 40 mg PO DAILY [facility] Last Admin: 05/23/17 08:23 Dose: 40 mg Sodium Chloride ([place] Nasal [place]) 1 sprays KIRBY Q4 PRN PRN Reason: Nasal congestion Last Admin: 05/20/17 21:42 Dose: 1 spray Assessment and Plan (1) SOB (shortness of breath) Status: Acute (2) Lymphangioleiomyomatosis Status: Chronic (3) COPD exacerbation Status: Chronic
--- NOTE | 2017-05-23 19:32 | CP.PCM.PN ---
Subjective - Date & Time of Evaluation Date of Evaluation: 05/23/17 Time of Evaluation: 22:22 - Subjective Subjective: Above noted Objective - Vital Signs/Intake and Output Vital Signs (last 24 hours): Temp Pulse Resp BP Pulse Ox 98.0 F 90 19 137/79 99 05/23/17 16:03 05/23/17 16:03 05/23/17 16:03 05/23/17 16:03 05/23/17 16:03 Intake and Output: 05/23/17 05/24/17 18:59 06:59 Intake Total 850 Balance 850 - Medications Medications: Current Medications Acetylcysteine (Mucomyst 10% 4ml) 2 ml IH RBID [facility] Last Admin: 05/23/17 19:03 Dose: 2 ml Albuterol Sulfate (Albuterol 0.083% Inhal [place]idad (2.5 Mg/3 Ml) Ud) 2.5 mg INH RQ4 PRN PRN Reason: Shortness of Breath Last Admin: 05/21/17 23:44 Dose: 2.5 mg Albuterol/Ipratropium (Duoneb 3 Mg/0.5 Mg (3 Ml) Ud) 3 ml INH RQID [facility] Last Admin: 05/23/17 19:02 Dose: 3 ml Alprazolam (Xanax) 0.5 mg PO BID PRN PRN Reason: Anxiety Cholecalciferol (Vitamin D) 1,000 iu PO DAILY [facility] Last Admin: 05/23/17 08:23 Dose: 1,000 iu Enoxaparin Sodium (Lovenox) 40 mg SC DAILY [facility] PRN Reason: Protocol Last Admin: 05/23/17 08:23 Dose: 40 mg Fluticasone Propionate (Flonase) 2 spr KIRBY HS [facility] Last Admin: 05/22/17 21:43 Dose: 2 spr Guaifenesin (Robitussin) 200 mg PO Q6 PRN PRN Reason: Cough Last Admin: 05/23/17 16:53 Dose: 200 mg Methylprednisolone 30 mg/ (Sodium Chloride) 50 mls @ 100 mls/hr IV Q12 [facility] Mometasone Furoate (Asmanex Twisthaler 110 Mcg) 1 puff INH BID [facility] Last Admin: 05/23/17 16:50 Dose: 1 puff Oxycodone/Acetaminophen (Percocet 5/325 Mg Tab) 1 tab PO Q6 PRN PRN Reason: Pain, moderate (4-7) Stop: 05/25/17 07:26 Last Admin: 05/23/17 06:35 Dose: 1 tab Pantoprazole Sodium (Protonix Ec Tab) 40 mg PO DAILY [facility] Last Admin: 05/23/17 08:23 Dose: 40 mg Sodium Chloride ([place] Nasal [place]) 1 sprays KIRBY Q4 PRN PRN Reason: Nasal congestion Last Admin: 05/20/17 21:42 Dose: 1 spray - Respiratory Exam Respiratory Exam: NORMAL BREATHING PATTERN - Cardiovascular Exam Cardiovascular Exam: REGULAR RHYTHM - GI/Abdominal Exam GI & Abdominal Exam: Normal Bowel Sounds Assessment and Plan - Assessment and Plan (Free Text) Assessment: COPD Lymphangioleiomyomatosis Hypoxemia NPPV Pulmonary B-agonists Steroids Lung transplant ?? UTI?? Sx?? culture ?? repeat u/a WNL Obesity Chronic Pain Cont meds Mood changes No major depression HDL 146!
[2017-05-23] MEDS ORDERED: Calamine/Zinc Oxide LOTION TOP PRN (20:15)
[2017-05-23] MEDS: methylPREDNISolone 30 MG in Sodium Chloride 0.9% 50 ML IV SCH (21:00)
[2017-05-23] MEDS ORDERED: Calamine/Zinc Oxide LOTION TOP SCH (22:00)
[2017-05-24] MEDS: Albuterol 0.083% Inhal Sol (2.5 mg/3 mL) UD INH PRN (03:14)
[2017-05-24] MEDS: Albuterol-Ipratrop 3 mg / 0.5 (3 ml) UD INH SCH ×5 (08:24→20:11)
[2017-05-24] MEDS: Acetylcysteine 10% 4 ML IH SCH (08:27)
[2017-05-24] MEDS: Enoxaparin 40 mg Syringe SC SCH (09:01)
[2017-05-24] MEDS: methylPREDNISolone 30 MG in Sodium Chloride 0.9% 50 ML IV SCH ×2 (09:02→21:03)
[2017-05-24] MEDS: Pantoprazole 40 mg EC Tab PO SCH (09:03)
[2017-05-24] MEDS: Mometasone 110 mcg/puff-30 puff Inh INH SCH ×3 (09:05→17:10)
--- NOTE | 2017-05-24 09:42 | CP.PCM.PN ---
Subjective - Date & Time of Evaluation Date of Evaluation: 05/24/17 Time of Evaluation: 09:39 - Subjective Subjective: Overnight event noted. Pruritic eruption on arms and flank, etiology? Better after Benadryl. Comfortable at rest seated up in bed. Remains on O2 via venti-mask at 50%. Uses NPPV overnight. Breath sounds unchanged. No cyanosis. Ready for D/C to [facility]. Attempting to have follow up at [facility]. Objective - Vital Signs/Intake and Output Vital Signs (last 24 hours): Temp Pulse Resp BP Pulse Ox 98.0 F 84 20 146/82 100 05/24/17 08:50 05/24/17 08:50 05/24/17 08:50 05/24/17 08:50 05/24/17 08:50 Intake and Output: 05/23/17 05/24/17 23:59 11:59 Intake Total 850 Balance 850 - Medications Medications: Current Medications Albuterol Sulfate (Albuterol 0.083% Inhal [place] (2.5 Mg/3 Ml) Ud) 2.5 mg INH RQ4 PRN PRN Reason: Shortness of Breath Last Admin: 05/24/17 03:14 Dose: 2.5 mg Albuterol/Ipratropium (Duoneb 3 Mg/0.5 Mg (3 Ml) Ud) 3 ml INH RQID [facility] Last Admin: 05/24/17 08:24 Dose: 3 ml Alprazolam (Xanax) 0.5 mg PO BID PRN PRN Reason: Anxiety Calamine (Calamine Lotion) 1 applic TOP Q6 PRN PRN Reason: Itching / Pruritus Cholecalciferol (Vitamin D) 1,000 iu PO DAILY [facility] Last Admin: 05/24/17 09:03 Dose: 1,000 iu Diphenhydramine HCl (Benadryl) 50 mg PO Q6 PRN PRN Reason: Itching / Pruritus Last Admin: 05/23/17 21:09 Dose: 50 mg Enoxaparin Sodium (Lovenox) 40 mg SC DAILY [facility] PRN Reason: Protocol Last Admin: 05/24/17 09:01 Dose: 40 mg Fluticasone Propionate (Flonase) 2 spr KIRBY HS [facility] Last Admin: 05/23/17 21:00 Dose: 2 spr Methylprednisolone 30 mg/ (Sodium Chloride) 50 mls @ 100 mls/hr IV Q12 [facility] Last Admin: 05/24/17 09:02 Dose: 100 mls/hr Mometasone Furoate (Asmanex Twisthaler 110 Mcg) 1 puff INH BID [facility] Last Admin: 05/24/17 09:05 Dose: 1 puff Oxycodone/Acetaminophen (Percocet 5/325 Mg Tab) 1 tab PO Q6 PRN PRN Reason: Pain, moderate (4-7) Stop: 05/25/17 07:26 Last Admin: 05/23/17 23:14 Dose: 1 tab Pantoprazole Sodium (Protonix Ec Tab) 40 mg PO DAILY [facility] Last Admin: 05/24/17 09:03 Dose: 40 mg Sodium Chloride ([place] Nasal [place]) 1 sprays KIRBY Q4 PRN PRN Reason: Nasal congestion Last Admin: 05/20/17 21:42 Dose: 1 spray Assessment and Plan (1) SOB (shortness of breath) Status: Acute (2) Lymphangioleiomyomatosis Status: Chronic (3) COPD exacerbation Status: Chronic
[2017-05-24 11:33] LABS: BASO % 0.1 % (0.0-2.0); HEMOGLOBIN 13.5 g/dL (12.0-16.0); LYMPH # 0.6 K/uL (1.0-4.3); LYMPH % 3.8 % (20.0-40.0); MEAN CELL VOLUME 93.2 fl (81.0-99.0); MEAN CORPUSCULAR HEMOGLOBIN 29.9 pg (27.0-31.0); MEAN CORPUSCULAR HGB CONC 32.1 g/dL (33.0-37.0); MEAN PLATELET VOLUME 7.6 fl (7.2-11.7); MONO # 1.5 K/uL (0.0-0.8); MONO % 9.2 % (0.0-10.0); NEUT # 13.9 K/uL (1.8-7.0); NEUT % 86.9 % (50.0-75.0); PLATELET COUNT 378 K/uL (130-400); RBC 4.51 Mil/uL (3.80-5.20)
[2017-05-24 11:58] LABS: BLOOD UREA NITROGEN 26 mg/dl (7-17); CALCIUM 9.4 mg/dL (8.4-10.2); GFR AFRICAN-AMERICAN > 60; GFR NON-AFRICAN AMERICAN > 60
[2017-05-24] MEDS: Oxycodone/Acetaminophen 5/325 mg Tab PO PRN (12:01)
[2017-05-24 12:15] LABS: LYMPHOCYTE 8 % (20-50); MONOCYTE 8 % (0-10); NEUTROPHIL 84 % (42-75); PLATELET ESTIMATE NORMAL (NORMAL); TOTAL CELLS COUNTED 100
--- NOTE | 2017-05-24 20:27 | CP.PCM.PN ---
Subjective - Date & Time of Evaluation Date of Evaluation: 05/24/17 Time of Evaluation: 22:22 - Subjective Subjective: Above noted Objective - Vital Signs/Intake and Output Vital Signs (last 24 hours): Temp Pulse Resp BP Pulse Ox 97.6 F 93 H 16 130/81 97 05/24/17 20:18 05/24/17 20:18 05/24/17 20:18 05/24/17 20:18 05/24/17 20:18 - Medications Medications: Current Medications Albuterol Sulfate (Albuterol 0.083% Inhal [place] (2.5 Mg/3 Ml) Ud) 2.5 mg INH RQ4 PRN PRN Reason: Shortness of Breath Last Admin: 05/24/17 03:14 Dose: 2.5 mg Albuterol/Ipratropium (Duoneb 3 Mg/0.5 Mg (3 Ml) Ud) 3 ml INH RQID [facility] Last Admin: 05/24/17 20:10 Dose: 3 ml Alprazolam (Xanax) 0.5 mg PO BID PRN PRN Reason: Anxiety Calamine (Calamine Lotion) 1 applic TOP Q6 PRN PRN Reason: Itching / Pruritus Cholecalciferol (Vitamin D) 1,000 iu PO DAILY [facility] Last Admin: 05/24/17 09:03 Dose: 1,000 iu Diphenhydramine HCl (Benadryl) 50 mg PO Q6 PRN PRN Reason: Itching / Pruritus Last Admin: 05/23/17 21:09 Dose: 50 mg Enoxaparin Sodium (Lovenox) 40 mg SC DAILY [facility] PRN Reason: Protocol Last Admin: 05/24/17 09:01 Dose: 40 mg Fluticasone Propionate (Flonase) 2 spr KIRBY HS [facility] Last Admin: 05/23/17 21:00 Dose: 2 spr Methylprednisolone 30 mg/ (Sodium Chloride) 50 mls @ 100 mls/hr IV Q12 [facility] Last Admin: 05/24/17 09:02 Dose: 100 mls/hr Mometasone Furoate (Asmanex Twisthaler 110 Mcg) 1 puff INH BID [facility] Last Admin: 05/24/17 17:10 Dose: 1 puff Oxycodone/Acetaminophen (Percocet 5/325 Mg Tab) 1 tab PO Q6 PRN PRN Reason: Pain, moderate (4-7) Stop: 05/25/17 07:26 Last Admin: 05/24/17 12:01 Dose: 1 tab Pantoprazole Sodium (Protonix Ec Tab) 40 mg PO DAILY [facility] Last Admin: 05/24/17 09:03 Dose: 40 mg Sodium Chloride ([place] Nasal [place]) 1 sprays KIRBY Q4 PRN PRN Reason: Nasal congestion Last Admin: 05/20/17 21:42 Dose: 1 spray - Labs Labs: 05/24/17 10:30 05/24/17 10:30 - Respiratory Exam Respiratory Exam: NORMAL BREATHING PATTERN - Cardiovascular Exam Cardiovascular Exam: REGULAR RHYTHM - GI/Abdominal Exam GI & Abdominal Exam: Normal Bowel Sounds Assessment and Plan - Assessment and Plan (Free Text) Assessment: COPD Lymphangioleiomyomatosis Venti mask alt with NPPV Pulmonary B-agonists Steroids Lung transplant at [place] rash?? Benadryl UTI?? Sx?? culture ?? repeat u/a WNL Obesity Chronic Pain Cont meds Mood changes No major depression HDL 146!
[2017-05-25 07:01] LABS: BASO % 0.1 % (0.0-2.0); HEMOGLOBIN 13.7 g/dL (12.0-16.0); LYMPH # 0.8 K/uL (1.0-4.3); LYMPH % 5.2 % (20.0-40.0); MEAN CELL VOLUME 93.5 fl (81.0-99.0); MEAN CORPUSCULAR HGB CONC 32.1 g/dL (33.0-37.0); MEAN PLATELET VOLUME 7.5 fl (7.2-11.7); MONO # 1.1 K/uL (0.0-0.8); MONO % 7.2 % (0.0-10.0); NEUT % 87.5 % (50.0-75.0); RBC 4.58 Mil/uL (3.80-5.20); RED CELL DISTRIBUTION WIDTH 13.9 % (11.5-14.5); WHITE BLOOD COUNT 14.8 K/uL (4.8-10.8)
[2017-05-25 07:08] LABS: ALB/GLOB RATIO 1.4 (1.0-2.1); ALBUMIN 3.6 g/dL (3.5-5.0); ALT/SGPT 47 U/L (9-52); AST/SGOT 18 U/L (14-36); BLOOD UREA NITROGEN 24 mg/dl (7-17); CALCIUM 8.9 mg/dL (8.4-10.2); GFR AFRICAN-AMERICAN > 60; GFR NON-AFRICAN AMERICAN > 60
[2017-05-25] MEDS: Albuterol-Ipratrop 3 mg / 0.5 (3 ml) UD INH SCH ×2 (08:05→11:18)
[2017-05-25 08:17] VITALS: RESP 18; TEMP 98.6
[2017-05-25] MEDS: Enoxaparin 40 mg Syringe SC SCH (09:13)
[2017-05-25] MEDS: Mometasone 110 mcg/puff-30 puff Inh INH SCH (09:13)
[2017-05-25] MEDS: methylPREDNISolone 30 MG in Sodium Chloride 0.9% 50 ML IV SCH (09:14)
[2017-05-25] MEDS: Pantoprazole 40 mg EC Tab PO SCH (09:14)
[2017-05-25] MEDS ORDERED: Oxycodone/Acetaminophen 5/325 mg Tab PO PRN (09:15)
--- NOTE | 2017-05-25 11:24 | CP.PCM.PN ---
Subjective - Date & Time of Evaluation Date of Evaluation: 05/25/17 Time of Evaluation: 11:20 - Subjective Subjective: Seated up in bed. Mood is quite good today. Vital signs are stable. Oxygenation remains good. SpO2 >95% consistently. Breath sounds are unchanged w/o wheezing. Cushingoid/flushed facies +. No dependant edema or cyanosis. BiPAP settings 07/14/16 with O2 decreased to 30%. Ventimask O2 decreased to 28%. Solumedrol reduced to 30MG once daily. For discharge to [facility]. Objective - Vital Signs/Intake and Output Vital Signs (last 24 hours): Temp Pulse Resp BP Pulse Ox 98.6 F 81 18 144/85 100 05/25/17 08:00 05/25/17 08:00 05/25/17 08:00 05/25/17 08:00 05/25/17 08:00 - Medications Medications: Current Medications Albuterol Sulfate (Albuterol 0.083% Inhal [place] (2.5 Mg/3 Ml) Ud) 2.5 mg INH RQ4 PRN PRN Reason: Shortness of Breath Last Admin: 05/24/17 03:14 Dose: 2.5 mg Albuterol/Ipratropium (Duoneb 3 Mg/0.5 Mg (3 Ml) Ud) 3 ml INH RQID [facility] Last Admin: 05/25/17 11:18 Dose: 3 ml Alprazolam (Xanax) 0.5 mg PO BID PRN PRN Reason: Anxiety Calamine (Calamine Lotion) 1 applic TOP Q6 PRN PRN Reason: Itching / Pruritus Cholecalciferol (Vitamin D) 1,000 iu PO DAILY [facility] Last Admin: 05/25/17 09:14 Dose: 1,000 iu Diphenhydramine HCl (Benadryl) 50 mg PO Q6 PRN PRN Reason: Itching / Pruritus Last Admin: 05/25/17 01:12 Dose: 50 mg Enoxaparin Sodium (Lovenox) 40 mg SC DAILY [facility] PRN Reason: Protocol Last Admin: 05/25/17 09:13 Dose: 40 mg Fluticasone Propionate (Flonase) 2 spr KIRBY HS [facility] Last Admin: 05/24/17 21:07 Dose: 2 spr Mometasone Furoate (Asmanex Twisthaler 110 Mcg) 1 puff INH BID [facility] Last Admin: 05/25/17 09:13 Dose: 1 puff Oxycodone/Acetaminophen (Percocet 5/325 Mg Tab) 1 tab PO Q6 PRN PRN Reason: Pain, moderate (4-7) Stop: 05/28/17 09:16 Last Admin: 05/25/17 10:10 Dose: 1 tab Pantoprazole Sodium (Protonix Ec Tab) 40 mg PO DAILY [facility] Last Admin: 05/25/17 09:14 Dose: 40 mg Sodium Chloride ([place] Nasal [place]) 1 sprays KIRBY Q4 PRN PRN Reason: Nasal congestion Last Admin: 05/20/17 21:42 Dose: 1 spray - Labs Labs: 05/25/17 06:00 05/25/17 06:00 Assessment and Plan (1) SOB (shortness of breath) Status: Acute (2) Lymphangioleiomyomatosis Status: Chronic (3) COPD exacerbation Status: Chronic
[2017-05-25 12:00] VITALS: BP 146/73; PULSE 112; O2SAT 93
[2017-05-25] MEDS: Albuterol 0.083% Inhal Sol (2.5 mg/3 mL) UD INH PRN (13:28)
[2017-05-26] MEDS ORDERED: methylPREDNISolone 30 MG in Sodium Chloride 0.9% 50 ML IV SCH (09:00)
== END 2017-05-25 14:15 | DRG 190 ==
LOC: H.ER 15:55 → H.ERHOLD 17:53 → INTOOBSV 17:53 → H.TEL 21:38 → OBSVTOIN 05-19 14:26
PROVIDERS: ADMIT Family Medicine Geriatric Medicine; ATTEND Family Medicine Geriatric Medicine
DX: J44.1 Chronic obstructive pulmonary disease with (acute) exacerbation (principal); J84.81 Lymphangioleiomyomatosis; J96.20 Acute and chronic respiratory failure, unspecified whether with hypoxia or hypercapnia; N39.0 Urinary tract infection, site not specified; E66.9 Obesity, unspecified; G89.29 Other chronic pain; Z87.891 Personal history of nicotine dependence; Z68.31 Body mass index [BMI] 31.0-31.9, adult

== ENCOUNTER 2017-07-16 05:22 | Inpatient (IN) | payer MEDICARE, MEDICAID ==
[2017-07-16 05:23] VITALS: BMI 26.3
[2017-07-16] MEDS ORDERED: Albuterol-Ipratrop 3 mg / 0.5 (3 ml) UD ONE (05:41)
[2017-07-16] MEDS ORDERED: Albuterol-Ipratrop 3 mg / 0.5 (3 ml) UD INH STA ×3 (05:47)
[2017-07-16 06:12] LABS: ABG ALLEN TEST YES; ABG MECHANICAL RATE 16; ARTERIAL BLOOD GAS HCO3 35.1 mmol/L (21-28); ARTERIAL BLOOD GAS MODE BiPAP; ARTERIAL BLOOD GAS PH 7.31 (7.35-7.45); ARTERIAL BLOOD GAS PO2 517 mm/Hg (80-100)
[2017-07-16 06:14] LABS: BLOOD UREA NITROGEN 23 mg/dl (7-17); CALCIUM 9.3 mg/dL (8.4-10.2); CARBON DIOXIDE 39 mmol/L (22-30); CHLORIDE 97 mmol/L (98-107); GFR AFRICAN-AMERICAN > 60; GLUCOSE,RANDOM 129 mg/dL (65-105); POTASSIUM 3.8 MMOL/L (3.6-5.0); SODIUM 146 mmol/l (132-148)
[2017-07-16 06:19] LABS: BASO % 0.2 % (0.0-2.0); EOS % 0.1 % (0.0-4.0); HEMATOCRIT 41.9 % (34.0-47.0); LYMPH # 2.5 K/uL (1.0-4.3); LYMPH % 17.5 % (20.0-40.0); MEAN CELL VOLUME 92.1 fl (81.0-99.0); MEAN CORPUSCULAR HEMOGLOBIN 29.6 pg (27.0-31.0); MEAN CORPUSCULAR HGB CONC 32.1 g/dL (33.0-37.0); MEAN PLATELET VOLUME 7.3 fl (7.2-11.7); MONO # 1.3 K/uL (0.0-0.8); MONO % 9.1 % (0.0-10.0); NEUT # 10.5 K/uL (1.8-7.0); NEUT % 73.1 % (50.0-75.0); NRBC % 0.1 % (0.0-0.0); RED CELL DISTRIBUTION WIDTH 14.7 % (11.5-14.5); WHITE BLOOD COUNT 14.4 K/uL (4.8-10.8)
--- NOTE | 2017-07-16 06:23 | ED PDOC ---
HPI: SOB/CHF/COPD Time Seen by Provider: 07/16/17 05:40 Chief Complaint (Nursing): Shortness Of Breath Chief Complaint (Provider): Shortness Of Breath History Per: Patient History/Exam Limitations: no limitations Onset/Duration Of Symptoms: Hrs (x1-2) Current Symptoms Are (Timing): Still Present Additional Complaint(s): Keri Hernandez is a 57 year old female with previous medical history of lymphangioleiomyomatosis ([place]), COPD and asthma, who presents to the emergency department with a complaint of shortness of breath associated with congestion, anxiety and tightness in chest while she slept prior to arrival. Denied any further medical complaints. PMD: Randy Interiano MD Past Medical History Reviewed: Historical Data, Nursing Documentation, Vital Signs Vital Signs: Last Vital Signs Temp 97.6 F 07/16/17 05:57 Pulse 88 07/16/17 06:51 Resp 16 07/16/17 06:51 BP 150/83 07/16/17 06:51 Pulse Ox 100 07/16/17 06:51 - Medical History PMH: Anxiety, Asthma, Back Problems, COPD, Pneumothorax Denies: Arthritis, CHF, HIV, HTN, Hypercholesterolemia, Hypothyroidism, Chronic Kidney Disease, Rheumatoid Arthritis - Family History Family History: States: Unknown Family Hx - Home Medications Home Medications: Ambulatory Orders Medication Instructions Recorded Alprazolam [Xanax] 0.5 mg PO BID PRN 04/17/16 Cholecalciferol [Vitamin D 1000 IU] 1,000 iu PO DAILY #30 tab 09/22/16 Fluticasone Propionate [Flonase] 2 spr KIRBY HS #1 bottle 09/22/16 Mometasone [Asmanex Twisthaler 110 1 puff INH BID #1 inhaler 09/22/16 MCG] Pantoprazole [Protonix EC Tab] 40 mg PO DAILY #30 ect 09/22/16 Sodium Chloride Nasal [place] [[place] 1 sprays KIRBY Q4 PRN #1 bottle 09/22/16 Nasal [place]] Albuterol 0.083% [Albuterol 0.083% 2.5 mg INH RQ4 PRN 05/25/17 Inhal Caridad (2.5 mg/3 ml) UD] Albuterol/Ipratropium [Duoneb 3 3 ml INH RQID 05/25/17 mg/0.5 mg (3 ml) UD] Calamine/Zinc Oxide [Calamine 1 applic TOP Q6 PRN bottle 05/25/17 Lotion] DiphenhydrAMINE [Benadryl] 50 mg PO Q6 PRN cap 05/25/17 Enoxaparin [Lovenox] 40 mg SC DAILY syr 05/25/17 methylPREDNISolone [Solu-MEDROL] 40 mg IV DAILY #5 vial 05/25/17 oxyCODONE/Acetaminophen [Percocet 1 tab PO Q6 PRN #14 tab 05/25/17 5/325 mg Tab] - Allergies Allergies/Adverse Reactions: Allergies Allergy/AdvReac Type Severity Reaction Status Date / Time Sulfa (Sulfonamide Allergy RASH Verified 09/22/16 15:53 Antibiotics) Review of Systems ROS Statement: Except As Marked, All Systems Reviewed And Found Negative ENT: Positive for: Nose Congestion Cardiovascular: Positive for: Chest Pain ("tightness") Respiratory: Positive for: Shortness of Breath Physical Exam - Reviewed Nursing Documentation Reviewed: Yes Vital Signs Reviewed: Yes - Physical Exam Appears: Positive for: Uncomfortable Head Exam: Positive for: ATRAUMATIC, NORMAL INSPECTION, NORMOCEPHALIC Skin: Positive for: Normal Color Eye Exam: Positive for: Normal appearance ENT: Positive for: Normal ENT Inspection Neck: Positive for: Normal Cardiovascular/Chest: Positive for: Regular Rate, Rhythm. Negative for: Chest Non Tender Respiratory: Positive for: Decreased Breath Sounds (poor lung entry bilaterally) , Crackles (possibly scattered at base), Respiratory Distress (moderate). Negative for: Normal Breath Sounds Gastrointestinal/Abdominal: Positive for: Normal Exam Extremity: Positive for: Normal ROM. Negative for: Tenderness, Pedal Edema, Deformity DTR - Knee (R): 1+ DTR - Knee (L): 1+ Neurologic/Psych: Positive for: Alert, Oriented - Laboratory Results Result Diagrams: 07/16/17 06:00 07/16/17 06:00 - ECG O2 Sat by Pulse Oximetry: 100 (RA) Pulse Ox Interpretation: Normal Medical Decision Making Medical Decision Making: Initial Impression: Exasperation of patient's Lawson or COPD Vs. possible CHF Initial Plan: * ABG shock panel * EKG * BNP * BMP * Troponin I * CBC * PTT * PT * CXR * Duoneb 3ml INH * Solu-medrol 125mg IVO * BiPAP Peak flow pre/post * Influenza A B * Urinalysis 645AM: Pt. feeling much better on BIPAP. Will repeat ABG in 1 hour and re-eval for home or admission. Scribe Attestation: Documented by Jonna Her, acting as a scribe for Chet Weiner MD. Provider Scribe Attestation: All medical record entries made by the Scribe were at my direction and personally dictated by me. I have reviewed the chart and agree that the record accurately reflects my personal performance of the history, physical exam, medical decision making, and the department course for this patient. I have also personally directed, reviewed, and agree with the discharge instructions and disposition. Disposition - Clinical Impression Clinical Impression: COPD exacerbation, Lymphangioleiomyomatosis - Patient ED Disposition Is Patient to be Admitted: Transfer of Care - Disposition Disposition: Transfer of Care Disposition Time: 07:00 Condition: IMPROVED Forms: [employer] (Kiswahili) Patient Signed Over To: Hussain Bass Handoff Comments: pending reassessment and repeat ABG in 1 hour
[2017-07-16 07:02] LABS: PARTIAL THROMBOPLASTIN TIME 24.2 Seconds (25.6-37.1)
--- NOTE | 2017-07-16 07:51 | ED PDOC ---
- Laboratory Results Result Diagrams: 07/16/17 06:00 07/16/17 06:00 - ECG O2 Sat by Pulse Oximetry: 100 (RA) Pulse Ox Interpretation: Normal Medical Decision Making Medical Decision Making: Patient endorsed to provider at [address] Weiner pending repeat ABG and re- evaluation. Scribe Attestation Documented by Nidhi Padilla acting as a scribe for Hussain Bass MD. Provider Attestation All medical record entries made by the Scribe were at my direction and personally dictated by me. I have reviewed the chart and agree that the record accurately reflects my personal performance of the history, physical exam, medical decision making, and the department course for this patient. I have also personally directed, reviewed, and agree with the discharge instructions and disposition. Disposition - Clinical Impression Clinical Impression: COPD exacerbation, Lymphangioleiomyomatosis - POA Present On Arrival: None - Disposition Disposition: Hospitalized as Observation Patient Disposition Time: 10:21 Condition: FAIR Forms: [employer] (Y[place]i)
--- NOTE | 2017-07-16 10:21 | RAD ---
HISTORY: SOB COMPARISON: Chest x-ray performed 05/18/17 TECHNIQUE: Chest, one view. FINDINGS: External wires and leads obscure evaluation of the underlying parenchyma. LUNGS: Hyperinflation, manifestations of COPD and emphysema. Biapical pleural parenchymal scarring. No focal consolidation. Please note that chest x-ray has limited sensitivity for the detection of pulmonary masses. PLEURA: Blunting of the left costophrenic angle may reflect small pleural effusion. No definite pneumothorax . CARDIOVASCULAR: Heart size appears top normal. OSSEOUS STRUCTURES: Degenerative changes. VISUALIZED UPPER ABDOMEN: Unremarkable. OTHER FINDINGS: None. IMPRESSION: Bibasilar atelectasis. Probable trace left pleural effusion. Hyperinflation, manifestations of COPD and emphysema. Biapical pleural parenchymal scarring.
[2017-07-16 11:02] LABS: RBC URINE 12 /hpf (0-3); RENAL EPITHELIAL < 1 /hpf (0-3); URINE BACTERIA RARE (<OCC); URINE BILIRUBIN NEGATIVE (NEGATIVE); URINE BLOOD SMALL (NEGATIVE); URINE COLOR YELLOW (YELLOW); URINE GLUCOSE (UA) NEG (Normal); URINE KETONE NEGATIVE (NEGATIVE); URINE LEUKOCYTE ESTERASE LARGE Leu/uL (Negative); URINE PROTEIN 30 mg/dL (NEGATIVE); URINE UROBILINOGEN 0.2-1.0 mg/dL (0.2-1.0); WBC URINE 98 /hpf (0-5)
[2017-07-16] MEDS ORDERED: Calamine/Zinc Oxide LOTION TOP PRN (11:25)
[2017-07-16] MEDS ORDERED: Nasal Spray(Ocean spray) NAS PRN (11:25)
[2017-07-16] MEDS ORDERED: Albuterol-Ipratrop 3 mg / 0.5 (3 ml) UD INH PRN (11:29)
--- NOTE | 2017-07-16 11:58 | CP.PCM.HP ---
History of Present Illness - History of Present Illness History of Present Illness: CC: SOB This is a 57 year old female with a past medical history significant for advanced stage COPD/Lymphangioleiomyomatosis (former cigarette smoker, obesity, history of UTI, Chronic pain syndrome, anxiety, who presented to the ED due to worsening shortness of breath and productive cough which has not responded to her home therapies. She says this SOB has been getting progressively worse over the last week, until today it was so severe that she came to the ED. In the ED, she was noted to be in hypercapneic respiratory failure on ABG. CXR shows bibasilar atelectasis and probably trace left pleural effusion without evidence of pneumonia. She was given several nebulizer treatments, IV steroids, and placed on Bipap with improvement in her breathing. However, her ABG still shows significant hypercapnia so she will be placed on observation on telemetry for further monitoring and workup. PMD: Dr. Interiano Present on Admission - Present on Admission Any Indicators Present on Admission: No Review of Systems - Constitutional Constitutional: absent: Anorexia, Chills, Headache, Increased Appetite - EENT Eyes: absent: Irritation, Itchy Eyes, Loss of Peripheral Vision Ears: absent: Decreased Hearing, Ear Discharge, Ear Pain Nose/Mouth/Throat: Sinus Pressure. absent: Nasal Obstruction, Nasal Trauma - Cardiovascular Cardiovascular: absent: Chest Pain, Chest Pain at Rest, Lightheadedness, Palpitations - Respiratory Respiratory: Cough, Dyspnea, Wheezing, Chest Congestion - Gastrointestinal Gastrointestinal: absent: Cramping, Diarrhea, Excessive Flatus, Fecal Incontinence - Genitourinary Genitourinary: absent: Pyuria, Nocturia, Urinary Hesitance, Urinary Urgency - Musculoskeletal Musculoskeletal: absent: Joint Swelling, Limited Range of Motion, Muscle Weakness, Neck Pain - Integumentary Integumentary: absent: Dry Skin, Hirsutism, Lesions, New Lesions, Rash - Neurological Neurological: absent: Disequilibrium, Dizziness, Numbness, Headaches - Psychiatric Psychiatric: Anxiety. absent: Behavioral Changes, Depression, Difficulty Concentrating, Hopelessness - Endocrine Endocrine: absent: Cold Intolorance, Deepening of Voice, Excessive Sweating, Fatigue - Hematologic/Lymphatic Hematologic: absent: Easy Bleeding, Easy Bruising, Lymphadenopathy Past Patient History - Infectious Disease Hx of Infectious Diseases: None - Past Medical History & Family History Past Medical History?: Yes - Past Social History Smoking Status: Former Smoker - CARDIAC Hx Congestive Heart Failure: No Hx Hypercholesterolemia: No Hx Hypertension: No - PULMONARY Hx Asthma: Yes Hx Chronic Obstructive Pulmonary Disease (COPD): Yes - NEUROLOGICAL Hx Neurological Disorder: No Other/Comment: History of Chronic Fatigue Syndrome; may have been incorrectly diagnosed with fatigue resulting from chronic lung disease (JIMENEZ). - HEENT Hx HEENT Problems: No - RENAL Hx Chronic Kidney Disease: No - ENDOCRINE/METABOLIC Hx Hypothyroidism: No - HEMATOLOGICAL/ONCOLOGICAL Hx Human Immunodeficiency Virus (HIV): No - INTEGUMENTARY Hx Dermatological Problems: No - MUSCULOSKELETAL/RHEUMATOLOGICAL Hx Arthritis: No Hx Rheumatoid Arthritis: No - GASTROINTESTINAL Hx Gastrointestinal Disorders: No - GENITOURINARY/GYNECOLOGICAL Other/Comment: endometriosis,uterine fibroids - PSYCHIATRIC Hx Anxiety: Yes - SURGICAL HISTORY Hx Pulmonary Surgery: Yes (VATS lung biopsy and pleurodesis) Other/Comment: breast cyst removal (benign), D&C for uterine fibroids, chest tube x2 (spontaneous pneumothorax) with ling biopsy done on second episode. - ANESTHESIA Hx Anesthesia: Yes Hx Anesthesia Reactions: No Hx Malignant Hyperthermia: No Meds Allergies/Adverse Reactions: Allergies Allergy/AdvReac Type Severity Reaction Status Date / Time Sulfa (Sulfonamide Allergy RASH Verified 09/22/16 15:53 Antibiotics) Physical Exam - Constitutional Appears: Well, Non-toxic Additional comments: Anxious - Head Exam Head Exam: ATRAUMATIC, NORMAL INSPECTION, NORMOCEPHALIC Additional comments: On Bipap - Eye Exam Eye Exam: EOMI, Normal appearance, PERRL Pupil Exam: NORMAL ACCOMODATION, PERRL - ENT Exam ENT Exam: Mucous Membranes Moist, Normal Exam - Neck Exam Neck exam: Positive for: Normal Inspection - Respiratory Exam Respiratory Exam: Accessory Muscle Use, Wheezes. absent: Rales Additional comments: Able to speak about 6 words between breaths - Cardiovascular Exam Cardiovascular Exam: REGULAR RHYTHM, +S1, +S2 - GI/Abdominal Exam GI & Abdominal Exam: Normal Bowel Sounds, Soft. absent: Distended, Organomegaly , Tenderness - Neurological Exam Neurological exam: Alert, CN II-XII Intact, Normal Gait, Oriented x3, Reflexes Normal - Psychiatric Exam Psychiatric exam: Anxious - Skin Skin Exam: Dry, Intact, Warm Results - Vital Signs Recent Vital Signs: Last Vital Signs Temp 97.6 F 07/16/17 05:57 Pulse 115 H 07/16/17 11:05 Resp 16 10/07/17 06:51 BP 150/83 07/16/17 06:51 Pulse Ox 100 07/16/17 10:21 - Labs Result Diagrams: 07/16/17 06:00 07/16/17 06:00 Labs: Laboratory Results - last 24 hr 07/16/17 07/16/17 07/16/17 06:00 06:00 06:00 WBC 14.4 H RBC 4.55 Hgb 13.5 Hct 41.9 MCV 92.1 MCH 29.6 MCHC 32.1 L RDW 14.7 H Plt Count 380 MPV 7.3 Neut % (Auto) 73.1 Lymph % (Auto) 17.5 L [place] % (Auto) 9.1 Eos % (Auto) 0.1 Baso % (Auto) 0.2 Neut # 10.5 H Lymph # 2.5 [place] # 1.3 H Eos # 0.0 Baso # 0.0 PT INR APTT pCO2 pO2 HCO3 ABG pH ABG Total CO2 ABG O2 Saturation ABG Base Excess Contreras Test ABG Potassium A-a O2 Difference Sodium 146 Chloride 97 L Glucose Lactate Vent Mode Mechanical Rate FiO2 Inspiratory BiPAP Expiratory BiPAP Crit Value Called To Crit Value Called By Crit Value Read Back Blood Gas Notified Time Potassium 3.8 Carbon Dioxide 39 H Anion Gap 14 BUN 23 H Creatinine 0.5 L Est GFR ( Amer) > 60 Est GFR (Non-Af Amer) > 60 Random Glucose 129 H Calcium 9.3 Troponin I < 0.0120 NT-Pro-B Natriuret Pep 26.5 Arterial Blood Potassium Urine Color Urine Clarity Urine pH Ur Specific [place] Urine Protein Urine Glucose (UA) Urine Ketones Urine Blood Urine Nitrate Urine Bilirubin Urine Urobilinogen Ur Leukocyte Esterase Urine RBC (Auto) Urine Microscopic WBC Ur Squamous Epith Cells Ur Renal Epithelial Cell Urine Bacteria Influenza Typ A,B (EIA) Negative for flu a/b 07/16/17 07/16/17 07/16/17 06:00 06:00 10:22 WBC RBC Hgb Hct MCV MCH MCHC RDW Plt Count MPV Neut % (Auto) Lymph % (Auto) [place] % (Auto) Eos % (Auto) Baso % (Auto) Neut # Lymph # [place] # Eos # Baso # PT 10.1 INR 0.9 APTT 24.2 L pCO2 86 H* pO2 517 H HCO3 35.1 H ABG pH 7.31 L ABG Total CO2 45.9 H ABG O2 Saturation 100.4 H ABG Base Excess 13.0 H Contreras Test Yes ABG Potassium 3.5 L A-a O2 Difference 89.0 Sodium 138.0 Chloride 101.0 Glucose 149 H Lactate 0.4 L Vent Mode Bipap Mechanical Rate 16 FiO2 100.0 Inspiratory BiPAP 12 Expiratory BiPAP 6 Crit Value Called To Dr kindra bah Crit Value Called By Clif[place] Crit Value Read Back Y Blood Gas Notified Time 610 Potassium Carbon Dioxide Anion Gap BUN Creatinine Est GFR ( Amer) Est GFR (Non-Af Amer) Random Glucose Calcium Troponin I NT-Pro-B Natriuret Pep Arterial Blood Potassium 3.5 L Urine Color Yellow Urine Clarity Cloudy Urine pH 5.0 Ur Specific [place] 1.026 Urine Protein 30 Urine Glucose (UA) Neg Urine Ketones Negative Urine Blood Small Urine Nitrate Negative Urine Bilirubin Negative Urine Urobilinogen 0.2-1.0 Ur Leukocyte Esterase Large Urine RBC (Auto) 12 H Urine Microscopic WBC 98 H Ur Squamous Epith Cells 14 H Ur Renal Epithelial Cell < 1 Urine Bacteria Rare Influenza Typ A,B (EIA) Assessment & Plan - Assessment and Plan (Free Text) Assessment: ASSESSMENT - Acute hypercapneic respiratory failure - Advaced stage COPD with hx of Lymphangioleiomyomatosis - Obesity - Chronic pain syndrome - Anxiety PLAN - Tele/obs - Consultation with Dr. Interiano appreciated - Solu-medrol 60 mg IV q8h - Continue BIPAP - Repeat ABG at 3 pm to reassess and check pCO2 - Pulse ox - Duoneb tx q6h around the clock - Continue Fluticasone - Continue Mometasone - Continue nasal spray - Start NS at 75 cc/hour for gentle hydration - continue home pain medications PRN - Lovenox for DVT prophylaxis - Estimated LOS < 2 midnights
--- NOTE | 2017-07-16 12:31 | CP.PCM.CON ---
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 She began to notice increasing shortness of breath which was not responding to her usual therapies at home and presented to the emergency room with hypercapnic respiratory failure. She has a long-standing history of lymphangioleiomyomatosis and is presently scheduled for transplant evaluation at [facility] in [facility]. She does have comorbid chronic obstructive pulmonary disease secondary to a prior tobacco habit. Past Patient History - Infectious Disease Hx of Infectious Diseases: None - Past Medical History & Family History Past Medical History?: Yes - Past Social History Smoking Status: Former Smoker Chewing Tobacco Use: No Cigar Use: No Alcohol: None Drugs: Denies Home Situation {Lives}: Alone - CARDIAC Hx Cardiac Disorders: No - PULMONARY Hx Chronic Obstructive Pulmonary Disease (COPD): Yes Other/Comment: Lymphangioleiomyomatosis. Spontaneous pneumothoraces 2 secondary to the above. - NEUROLOGICAL Hx Neurological Disorder: No - HEENT Hx HEENT Problems: No - RENAL Hx Chronic Kidney Disease: No - ENDOCRINE/METABOLIC Hx Endocrine Disorders: No - HEMATOLOGICAL/ONCOLOGICAL Hx Blood Disorders: No Hx Human Immunodeficiency Virus (HIV): No - INTEGUMENTARY Hx Dermatological Problems: No - MUSCULOSKELETAL/RHEUMATOLOGICAL Hx Back Pain: Yes - GASTROINTESTINAL Hx Gastrointestinal Disorders: No - GENITOURINARY/GYNECOLOGICAL Other/Comment: endometriosis,uterine fibroids - PSYCHIATRIC Hx Anxiety: Yes - SURGICAL HISTORY Hx Pulmonary Surgery: Yes (VATS lung biopsy and pleurodesis) Other/Comment: breast cyst removal (benign), D&C for uterine fibroids, chest tube x2 (spontaneous pneumothorax) with ling biopsy done on second episode. - ANESTHESIA Hx Anesthesia: Yes Hx Anesthesia Reactions: No Hx Malignant Hyperthermia: No Meds Allergies/Adverse Reactions: Allergies Allergy/AdvReac Type Severity Reaction Status Date / Time Sulfa (Sulfonamide Allergy RASH Verified 09/22/16 15:53 Antibiotics) - Medications Medications: Current Medications Albuterol Sulfate (Albuterol 0.083% Inhal [place] (2.5 Mg/3 Ml) Ud) 2.5 mg INH RQ4 PRN PRN Reason: Shortness of Breath Albuterol/Ipratropium (Duoneb 3 Mg/0.5 Mg (3 Ml) Ud) 3 ml INH RQID DENISSE Alprazolam (Xanax) 0.5 mg PO BID PRN PRN Reason: Anxiety Calamine (Calamine Lotion) 1 applic TOP Q6 PRN PRN Reason: Itching / Pruritus Cholecalciferol (Vitamin D) 1,000 iu PO DAILY [facility] Diphenhydramine HCl (Benadryl) 50 mg PO Q6 PRN PRN Reason: Itching / Pruritus Enoxaparin Sodium (Lovenox) 40 mg SC DAILY [facility] PRN Reason: Protocol Fluticasone Propionate (Flonase) 2 spr KIRBY HS DENISSE Sodium Chloride (Sodium Chloride 0.9%) 1,000 mls @ 75 mls/hr IV .[id number] DENISSE Methylprednisolone 60 mg/ (Sodium Chloride) 50 mls @ 100 mls/hr IVPB Q8 [facility] Mometasone Furoate (Asmanex [place] 110 Mcg) 1 puff INH BID DENISSE Oxycodone/Acetaminophen (Percocet 5/325 Mg Tab) 1 tab PO Q6 PRN PRN Reason: Pain, moderate (4-7) Stop: 07/19/17 11:26 Pantoprazole Sodium (Protonix Ec Tab) 40 mg PO DAILY [facility] Sodium Chloride ([place] Nasal [place]) 1 sprays KIRBY Q4 PRN PRN Reason: Nasal congestion Physical Exam - Additional Findings Additional findings: Presently on BiPAP mask ventilation. Tachypneic. Well oxygenated. Well-developed female, overweight. Cushingoid facies. Trace to 1+ dependent edema of both ankles, no cyanosis. No calf tenderness or palpable venous cords. No palpable lymphadenopathy. Neck is supple and trachea is midline, no neck vein distention or carotid bruit. No palpable thyromegaly. No dullness to chest percussion. No subcutaneous emphysema. Breath sounds are present bilaterally, diminished. Inspiratory phase is shortened. Few dry rales are heard posteriorly. Occasional sonorous rhonchi in the lower lobes bilaterally. No audible wheezing. No bronchial breathing, no egophony. Heart sounds are well heard, tachycardic. No murmur is heard. Abdomen is soft and nontender. Bowel sounds are well heard. No mass. Results - Vital Signs Recent Vital Signs: Last Vital Signs Temp 97.6 F 07/16/17 05:57 Pulse 115 H 07/16/17 12:22 Resp 23 07/16/17 10:00 BP 155/61 H 07/16/17 10:00 Pulse Ox 100 07/16/17 10:21 - Labs Result Diagrams: 07/17/17 06:00 07/17/17 06:00 Labs: Laboratory Results - last 24 hr 07/16/17 07/16/17 07/16/17 06:00 06:00 06:00 WBC 14.4 H RBC 4.55 Hgb 13.5 Hct 41.9 MCV 92.1 MCH 29.6 MCHC 32.1 L RDW 14.7 H Plt Count 380 MPV 7.3 Neut % (Auto) 73.1 Lymph % (Auto) 17.5 L [place] % (Auto) 9.1 Eos % (Auto) 0.1 Baso % (Auto) 0.2 Neut # 10.5 H Lymph # 2.5 [place] # 1.3 H Eos # 0.0 Baso # 0.0 PT INR APTT pCO2 pO2 HCO3 ABG pH ABG Total CO2 ABG O2 Saturation ABG Base Excess Contreras Test ABG Potassium A-a O2 Difference Sodium 146 Chloride 97 L Glucose Lactate Vent Mode Mechanical Rate FiO2 Inspiratory BiPAP Expiratory BiPAP Crit Value Called To Crit Value Called By Crit Value Read Back Blood Gas Notified Time Potassium 3.8 Carbon Dioxide 39 H Anion Gap 14 BUN 23 H Creatinine 0.5 L Est GFR ( Amer) > 60 Est GFR (Non-Af Amer) > 60 Random Glucose 129 H Calcium 9.3 Troponin I < 0.0120 NT-Pro-B Natriuret Pep 26.5 Arterial Blood Potassium Urine Color Urine Clarity Urine pH Ur Specific Lane Urine Protein Urine Glucose (UA) Urine Ketones Urine Blood Urine Nitrate Urine Bilirubin Urine Urobilinogen Ur Leukocyte Esterase Urine RBC (Auto) Urine Microscopic WBC Ur Squamous Epith Cells Ur Renal Epithelial Cell Urine Bacteria Influenza Typ A,B (EIA) Negative for flu a/b 07/16/17 07/16/17 07/16/17 06:00 06:00 10:22 WBC RBC Hgb Hct MCV MCH MCHC RDW Plt Count MPV Neut % (Auto) Lymph % (Auto) [place] % (Auto) Eos % (Auto) Baso % (Auto) Neut # Lymph # [place] # Eos # Baso # PT 10.1 INR 0.9 APTT 24.2 L pCO2 86 H* pO2 517 H HCO3 35.1 H ABG pH 7.31 L ABG Total CO2 45.9 H ABG O2 Saturation 100.4 H ABG Base Excess 13.0 H Contreras Test Yes ABG Potassium 3.5 L A-a O2 Difference 89.0 Sodium 138.0 Chloride 101.0 Glucose 149 H Lactate 0.4 L Vent Mode Bipap Mechanical Rate 16 FiO2 100.0 Inspiratory BiPAP 12 Expiratory BiPAP 6 Crit Value Called To Dr kindra bah Crit Value Called By Clifton Crit Value Read Back Y Blood Gas Notified Time 610 Potassium Carbon Dioxide Anion Gap BUN Creatinine Est GFR ( Amer) Est GFR (Non-Af Amer) Random Glucose Calcium Troponin I NT-Pro-B Natriuret Pep Arterial Blood Potassium 3.5 L Urine Color Yellow Urine Clarity Cloudy Urine pH 5.[address] 1.026 Urine Protein 30 Urine Glucose (UA) Neg Urine Ketones Negative Urine Blood Small Urine Nitrate Negative Urine Bilirubin Negative Urine Urobilinogen 0.2-1.0 Ur Leukocyte Esterase Large Urine RBC (Auto) 12 H Urine Microscopic WBC 98 H Ur Squamous Epith Cells 14 H Ur Renal Epithelial Cell < 1 Urine Bacteria Rare Influenza Typ A,B (EIA) Assessment & Plan (1) Acute on chronic respiratory failure with hypoxia and hypercapnia Assessment and Plan: NPPV using BiPAP mask ventilation. Bronchodilator via nebulizer. Parenteral corticosteroids. Status: Acute Priority: High (2) COPD exacerbation Status: Acute Priority: High (3) Lymphangioleiomyomatosis Status: Chronic Priority: High Comment[facility] - Date & Time Date: 07/16/17 Time: 12:30
[2017-07-16] MEDS: Albuterol-Ipratrop 3 mg / 0.5 (3 ml) UD INH SCH ×2 (15:13→19:09)
[2017-07-16 16:12] LABS: ABG ALLEN TEST YES; ARTERIAL BLOOD GAS HCO3 38.6 mmol/L (21-28); ARTERIAL BLOOD GAS O2 CAPACITY 17.2 mL/dL (16-24); ARTERIAL BLOOD GAS O2 CONTENT 16.3 ML/dL (15-23); ARTERIAL BLOOD GAS PH 7.44 (7.35-7.45); ARTERIAL BLOOD GAS PO2 55 mm/Hg (80-100); ARTERIAL BLOOD HGB O2 SAT 90.6 % (95.0-98.0); CARBOXYHEMOGLOBIN 3.8 % (0.5-1.5); HHB 4.8 % (0.0-5.0); METHEMOGLOBIN 0.8 % (0.0-3.0)
[2017-07-16] MEDS: Sodium Chloride 0.9% 1,000 ML IV SCH (16:38)
[2017-07-16] MEDS: Mometasone 110 mcg/puff-30 puff Inh INH SCH (17:23)
[2017-07-16] MEDS: methylPREDNISolone 60 MG in Sodium Chloride 0.9% 50 ML IVPB SCH (17:23)
--- NOTE | 2017-07-16 23:02 | CARD ---
APPROVED REPORT EKG Measurement Heart [id number] <Conclusion> Normal sinus rhythm Right atrial enlargement Nonspecific ST abnormality Abnormal ECG
[2017-07-16] MEDS: Oxycodone/Acetaminophen 5/325 mg Tab PO PRN (23:23)
[2017-07-16] MEDS: Albuterol 0.083% Inhal Sol (2.5 mg/3 mL) UD INH PRN (23:25)
[2017-07-17] MEDS: methylPREDNISolone 60 MG in Sodium Chloride 0.9% 50 ML IVPB SCH ×3 (00:34→16:17)
[2017-07-17] MEDS: Sodium Chloride 0.9% 1,000 ML IV SCH ×3 (01:30→15:04)
[2017-07-17] MEDS: Albuterol 0.083% Inhal Sol (2.5 mg/3 mL) UD INH PRN (06:16)
[2017-07-17 07:28] LABS: HEMATOCRIT 39.9 % (34.0-47.0); LYMPH # 0.5 K/uL (1.0-4.3); LYMPH % 3.5 % (20.0-40.0); MEAN CELL VOLUME 91.7 fl (81.0-99.0); MEAN CORPUSCULAR HEMOGLOBIN 29.3 pg (27.0-31.0); MEAN CORPUSCULAR HGB CONC 31.9 g/dL (33.0-37.0); MEAN PLATELET VOLUME 7.4 fl (7.2-11.7); MONO # 0.4 K/uL (0.0-0.8); MONO % 2.7 % (0.0-10.0); NEUT # 14.3 K/uL (1.8-7.0); NEUT % 93.8 % (50.0-75.0); PLATELET COUNT 358 K/uL (130-400); RED CELL DISTRIBUTION WIDTH 14.4 % (11.5-14.5); WHITE BLOOD COUNT 15.3 K/uL (4.8-10.8)
[2017-07-17 07:38] LABS: BLOOD UREA NITROGEN 21 mg/dl (7-17); CALCIUM 9.4 mg/dL (8.4-10.2); CHLORIDE 96 mmol/L (98-107); GFR AFRICAN-AMERICAN > 60; GLUCOSE,RANDOM 133 mg/dL (65-105); POTASSIUM 4.6 MMOL/L (3.6-5.0); SODIUM 144 mmol/l (132-148)
[2017-07-17 07:47] LABS: CARBON DIOXIDE 42 mmol/L (22-30)
[2017-07-17] MEDS: Albuterol-Ipratrop 3 mg / 0.5 (3 ml) UD INH SCH ×4 (07:49→19:33)
[2017-07-17] MEDS: Pantoprazole 40 mg EC Tab PO SCH (09:05)
[2017-07-17] MEDS: Enoxaparin 40 mg Syringe SC SCH (09:05)
[2017-07-17] MEDS: Mometasone 110 mcg/puff-30 puff Inh INH SCH (09:05)
[2017-07-17 10:12] LABS: NEUTROPHIL 93 % (42-75); TOTAL CELLS COUNTED 100
--- NOTE | 2017-07-17 10:49 | CP.PCM.PN ---
Subjective - Date & Time of Evaluation Date of Evaluation: 07/17/17 Time of Evaluation: 10:15 - Subjective Subjective: Today the patient states that overall she feels much better and her breathing was easier. However this morning the patient had an adverse reaction shortly after being given Asmanex, in which she had facial flushing and increased congestion and shortness of breath. She says that she feels better now after duoneb treatment. She has no other complaints as of now. She says as soon as she is off of Bipap she again becomes short of breath. No chest pain, weakness , nausea/vomiting diarrhea, no headache. Objective - Vital Signs/Intake and Output Vital Signs (last 24 hours): Temp Pulse Resp BP Pulse Ox 96.9 F L 91 H 20 133/81 100 07/17/17 08:00 07/17/17 08:19 07/17/17 08:00 07/17/17 08:00 07/17/17 08:00 - Medications Medications: Current Medications Albuterol Sulfate (Albuterol 0.083% Inhal [place] (2.5 Mg/3 Ml) Ud) 2.5 mg INH RQ4 PRN PRN Reason: Shortness of Breath Last Admin: 07/17/17 06:16 Dose: 2.5 mg Albuterol/Ipratropium (Duoneb 3 Mg/0.5 Mg (3 Ml) Ud) 3 ml INH RQID DENISSE Last Admin: 07/17/17 07:49 Dose: 3 ml Alprazolam (Xanax) 0.5 mg PO BID PRN PRN Reason: Anxiety Calamine (Calamine Lotion) 1 applic TOP Q6 PRN PRN Reason: Itching / Pruritus Cholecalciferol (Vitamin D) 1,000 iu PO DAILY [facility] Last Admin: 07/17/17 09:05 Dose: 1,000 iu Diphenhydramine HCl (Benadryl) 50 mg PO Q6 PRN PRN Reason: Itching / Pruritus Enoxaparin Sodium (Lovenox) 40 mg SC DAILY [facility] PRN Reason: Protocol Last Admin: 07/17/17 09:05 Dose: 40 mg Fluticasone Propionate (Flonase) 2 spr KIRBY HS [facility] Last Admin: 07/16/17 21:21 Dose: 2 spr Sodium Chloride (Sodium Chloride 0.9%) 1,000 mls @ 75 mls/hr IV .[id number] [facility] Last Admin: 07/17/17 06:29 Dose: 75 mls/hr Methylprednisolone 60 mg/ (Sodium Chloride) 50 mls @ 100 mls/hr IVPB Q8 [facility] Last Admin: 07/17/17 09:32 Dose: 100 mls/hr Oxycodone/Acetaminophen (Percocet 5/325 Mg Tab) 1 tab PO Q6 PRN PRN Reason: Pain, moderate (4-7) Stop: 07/19/17 11:26 Last Admin: 07/16/17 23:23 Dose: 1 tab Pantoprazole Sodium (Protonix Ec Tab) 40 mg PO DAILY [facility] Last Admin: 07/17/17 09:05 Dose: 40 mg Sodium Chloride ([place] Nasal [place]) 1 sprays KIRBY Q4 PRN PRN Reason: Nasal congestion - Labs Labs: 07/17/17 06:00 07/17/17 06:00 PT 10.1 Seconds (9.8-13.1) 07/16/17 06:00 INR 0.9 (0.9-1.2) 07/16/17 06:00 APTT 24.2 Seconds (25.6-37.1) L 07/16/17 06:00 - Additional Findings Additional findings: GENERAL: The patient is a well-developed, well-nourished female in no apparent distress. The patient is alert and oriented x3. HEENT: Head is normocephalic and atraumatic. Extraocular muscles are intact. Pupils are equal, round, and reactive to light and accommodation. Nares appeared normal. Mouth is well hydrated and without lesions. Mucous membranes are moist. On Bipap NECK: Supple. No carotid bruits.~ No lymphadenopathy or thyromegaly. LUNGS: Clear to auscultation. HEART: Regular rate and rhythm without murmur. ABDOMEN: Soft, nontender, and nondistended.~ Positive bowel sounds.~ No hepatosplenomegaly was noted. EXTREMITIES: Without any cyanosis, clubbing, rash, lesions or edema. NEUROLOGIC: Cranial nerves II through XII are grossly intact. SKIN: Minimal facial flushing. No ulceration or induration present. Assessment and Plan - Assessment and Plan (Free Text) Plan: ASSESSMENT - Acute hypercapneic respiratory failure secondary to COPD exacerbation, improved on Bipap - Advaced stage COPD with hx of Lymphangioleiomyomatosis - Obesity - Chronic pain syndrome - Anxiety PLAN - Telemetry. convert to full admission as patient will require > 2 midnights given she is still dyspneic off of Bipap - Consultation with Dr. Interiano appreciated - Continue Solu-medrol 60 mg IV q8h - Continue BIPAP - Pulse ox - Duoneb tx q6h around the clock - Continue Fluticasone - Discontinue Mometasone as patient does not tolerate and had adverse reaction - Continue nasal spray - Continue NS at 75 cc/hour for gentle hydration - Lovenox for DVT prophylaxis
[2017-07-17] MEDS: Oxycodone/Acetaminophen 5/325 mg Tab PO PRN (15:00)
[2017-07-18] MEDS: Oxycodone/Acetaminophen 5/325 mg Tab PO PRN ×3 (00:18→17:59)
[2017-07-18] MEDS: methylPREDNISolone 60 MG in Sodium Chloride 0.9% 50 ML IVPB SCH ×2 (00:19→10:13)
[2017-07-18] MEDS: Sodium Chloride 0.9% 1,000 ML IV SCH ×2 (03:30→21:59)
[2017-07-18] MEDS: Albuterol 0.083% Inhal Sol (2.5 mg/3 mL) UD INH PRN ×2 (04:27→14:35)
[2017-07-18] MEDS: Albuterol-Ipratrop 3 mg / 0.5 (3 ml) UD INH SCH ×4 (08:04→19:41)
[2017-07-18] MEDS: Enoxaparin 40 mg Syringe SC SCH (10:13)
[2017-07-18] MEDS: Pantoprazole 40 mg EC Tab PO SCH (10:13)
--- NOTE | 2017-07-18 13:14 | CP.PCM.PN ---
Subjective - Date & Time of Evaluation Date of Evaluation: 07/18/17 Time of Evaluation: 10:00 - Subjective Subjective: The patient states that her breathing is still labored, although a little better than yesterday. She remains tachypneic when off of the Bipap. She is still complaining of chest congestion and cough. Denies any cp, n/v/d, headache. Objective - Vital Signs/Intake and Output Vital Signs (last 24 hours): Temp Pulse Resp BP Pulse Ox 97.8 F 114 H 20 155/86 H 98 07/18/17 12:27 07/18/17 12:27 07/18/17 12:27 07/18/17 12:27 07/18/17 12:27 - Medications Medications: Current Medications Acetylcysteine (Acetylcysteine 20%) 2 ml INH RBID [facility] Albuterol Sulfate (Albuterol 0.083% Inhal Caridad (2.5 Mg/3 Ml) Ud) 2.5 mg INH RQ4 PRN PRN Reason: Shortness of Breath Last Admin: 07/18/17 04:27 Dose: 2.5 mg Albuterol/Ipratropium (Duoneb 3 Mg/0.5 Mg (3 Ml) Ud) 3 ml INH RQID [facility] Last Admin: 07/18/17 11:17 Dose: 3 ml Alprazolam (Xanax) 0.5 mg PO BID PRN PRN Reason: Anxiety Last Admin: 07/17/17 10:45 Dose: 0.5 mg Calamine (Calamine Lotion) 1 applic TOP Q6 PRN PRN Reason: Itching / Pruritus Cholecalciferol (Vitamin D) 1,000 iu PO DAILY [facility] Last Admin: 07/18/17 11:18 Dose: 1,000 iu Diphenhydramine HCl (Benadryl) 50 mg PO Q6 PRN PRN Reason: Itching / Pruritus Enoxaparin Sodium (Lovenox) 40 mg SC DAILY [facility] PRN Reason: Protocol Last Admin: 07/18/17 10:13 Dose: 40 mg Fluticasone Propionate (Flonase) 2 spr KIRBY HS [facility] Last Admin: 07/17/17 22:01 Dose: 2 spr Sodium Chloride (Sodium Chloride 0.9%) 1,000 mls @ 75 mls/hr IV .[id number] [facility] Last Admin: 07/18/17 03:30 Dose: 75 mls/hr Methylprednisolone 60 mg/ (Sodium Chloride) 50 mls @ 100 mls/hr IVPB Q8 [facility] Last Admin: 07/18/17 10:13 Dose: 100 mls/hr Oxycodone/Acetaminophen (Percocet 5/325 Mg Tab) 1 tab PO Q6 PRN PRN Reason: Pain, moderate (4-7) Stop: 07/19/17 11:26 Last Admin: 07/18/17 11:18 Dose: 1 tab Pantoprazole Sodium (Protonix Ec Tab) 40 mg PO DAILY [facility] Last Admin: 07/18/17 10:13 Dose: 40 mg Sodium Chloride ([place] Nasal [place]) 1 sprays KIRBY Q4 PRN PRN Reason: Nasal congestion - Labs Labs: 07/17/17 06:00 07/17/17 06:00 PT 10.1 Seconds (9.8-13.1) 07/16/17 06:00 INR 0.9 (0.9-1.2) 07/16/17 06:00 APTT 24.2 Seconds (25.6-37.1) L 07/16/17 06:00 - Additional Findings Additional findings: PHYSICAL EXAMINATION: GENERAL: The patient is alert and oriented x 3, no apparent distress, resting comfortably HEENT: Normocephalic, atraumatic. Cushingoid facies. Extraocular movements intact. No sinus tenderness. Oropharynx clear. Mucous membranes are moist. NECK: Supple without lymph node. CHEST: Mild wheezing. Short inspiratory breaths. No rhonchi. HEART: S1, S2. Regular rate and rhythm. ABDOMEN: Soft, nontender. No organomegaly. EXTREMITIES: No cyanosis, clubbing or edema. NEUROLOGIC: No focal deficit. No sensory deficit. PSYCHOSOCIAL: No signs of depression and is nonfocal. INTEGUMENT: Moist mucous membranes. Good skin turgor, intact. Assessment and Plan - Assessment and Plan (Free Text) Plan: ASSESSMENT - Acute hypercapneic respiratory failure secondary to COPD exacerbation, slowly improving with steroids, duonebs, Bipap - Advanced stage COPD with hx of Lymphangioleiomyomatosis - Obesity - Chronic pain syndrome - Anxiety PLAN - Consultation with Dr. Interiano appreciated - Continue Solu-medrol 60 mg IV q8h. Steroids can hopefully be tapered down tomorrow if she continues to improve - Continue BIPAP - Will add Mucomyst IH BID to her regimen to improve her chest congestion - Pulse ox - Duoneb tx q6h around the clock - Continue Fluticasone - Discontinued Mometasone as patient does not tolerate and had adverse reaction - Continue nasal spray - Continue NS at 75 cc/hour for gentle hydration - Lovenox for DVT prophylaxis - Patient likely to be candidate for BRANDEN upon discharge which she is amenable to.
--- NOTE | 2017-07-18 13:34 | CP.PCM.PN ---
Subjective - Date & Time of Evaluation Date of Evaluation: 07/18/17 Time of Evaluation: 13:32 - Subjective Subjective: Seen on rounds this morning. Claims she is feeling a little better, but still very SOB. Edema of LE's is very gradually decreasing. There is no calf tenderness or palpable venous cords. Flushed facies with cushingoid features. Short inspiratory time without wheezing or bronchial breathing. Last Echocardiogram done was about a year ago and did show some RV dilation. May need venous duplex scan of LE's. Mucinex was added to the regimen today. Would benefit from repeat Echo. May need VQ scan of the lugs as well. Continue NPPV . Steroid dose decreased. Objective - Vital Signs/Intake and Output Vital Signs (last 24 hours): Temp Pulse Resp BP Pulse Ox 97.8 F 114 H 20 155/86 H 98 07/18/17 12:27 07/18/17 12:27 07/18/17 12:27 07/18/17 12:27 07/18/17 12:27 - Medications Medications: Current Medications Acetylcysteine (Acetylcysteine 20%) 2 ml INH RBID [facility] Albuterol Sulfate (Albuterol 0.083% Inhal Caridad (2.5 Mg/3 Ml) Ud) 2.5 mg INH RQ4 PRN PRN Reason: Shortness of Breath Last Admin: 07/18/17 04:27 Dose: 2.5 mg Albuterol/Ipratropium (Duoneb 3 Mg/0.5 Mg (3 Ml) Ud) 3 ml INH RQID [facility] Last Admin: 07/18/17 11:17 Dose: 3 ml Alprazolam (Xanax) 0.5 mg PO BID PRN PRN Reason: Anxiety Last Admin: 07/17/17 10:45 Dose: 0.5 mg Calamine (Calamine Lotion) 1 applic TOP Q6 PRN PRN Reason: Itching / Pruritus Cholecalciferol (Vitamin D) 1,000 iu PO DAILY [facility] Last Admin: 07/18/17 11:18 Dose: 1,000 iu Diphenhydramine HCl (Benadryl) 50 mg PO Q6 PRN PRN Reason: Itching / Pruritus Enoxaparin Sodium (Lovenox) 40 mg SC DAILY [facility] PRN Reason: Protocol Last Admin: 07/18/17 10:13 Dose: 40 mg Fluticasone Propionate (Flonase) 2 spr KIRBY HS [facility] Last Admin: 07/17/17 22:01 Dose: 2 spr Sodium Chloride (Sodium Chloride 0.9%) 1,000 mls @ 75 mls/hr IV .[id number] [facility] Last Admin: 07/18/17 03:30 Dose: 75 mls/hr Methylprednisolone 40 mg/ (Sodium Chloride) 50.64 mls @ 100 mls/hr IVPB Q8 [facility] Oxycodone/Acetaminophen (Percocet 5/325 Mg Tab) 1 tab PO Q6 PRN PRN Reason: Pain, moderate (4-7) Stop: 07/19/17 11:26 Last Admin: 07/18/17 11:18 Dose: 1 tab Pantoprazole Sodium (Protonix Ec Tab) 40 mg PO DAILY [facility] Last Admin: 07/18/17 10:13 Dose: 40 mg Sodium Chloride ([place] Nasal [place]) 1 sprays KIRBY Q4 PRN PRN Reason: Nasal congestion - Labs Labs: 07/17/17 06:00 07/17/17 06:00 PT 10.1 Seconds (9.8-13.1) 07/16/17 06:00 INR 0.9 (0.9-1.2) 07/16/17 06:00 APTT 24.2 Seconds (25.6-37.1) L 07/16/17 06:00 Assessment and Plan (1) Acute on chronic respiratory failure with hypoxia and hypercapnia Status: Acute (2) COPD exacerbation Status: Acute (3) Lymphangioleiomyomatosis Status: Chronic
[2017-07-18] MEDS: Acetylcysteine 20% Inhal Soln (4ml) INH SCH ×2 (14:34→19:41)
[2017-07-18] MEDS: methylPREDNISolone 40 MG in Sodium Chloride 0.9% 50 ML IVPB SCH (21:58)
[2017-07-19] MEDS: methylPREDNISolone 40 MG in Sodium Chloride 0.9% 50 ML IVPB SCH ×2 (01:12→09:54)
[2017-07-19] MEDS: Albuterol 0.083% Inhal Sol (2.5 mg/3 mL) UD INH PRN (02:19)
[2017-07-19] MEDS: Oxycodone/Acetaminophen 5/325 mg Tab PO PRN ×2 (06:28→17:42)
[2017-07-19] MEDS: Acetylcysteine 20% Inhal Soln (4ml) INH SCH ×2 (07:30→19:03)
[2017-07-19] MEDS: Albuterol-Ipratrop 3 mg / 0.5 (3 ml) UD INH SCH ×4 (07:30→19:03)
--- NOTE | 2017-07-19 09:01 | US ---
PROCEDURE: Bilateral lower extremity venous duplex Doppler. HISTORY: lower extremity swelling, r/o dvt COMPARISON: None available. TECHNIQUE: Bilateral common femoral, superficial femoral, popliteal and posterior tibial veins were evaluated. Flow was assessed with color Doppler, compressibility, assessment of phasic flow and augmentation response. FINDINGS: COMMON FEMORAL VEIN: Right CFV: Unremarkable. Left CFV: Unremarkable. SUPERFICIAL FEMORAL VEIN: Right SFV: Unremarkable. Left SFV: Unremarkable. POPLITEAL VEIN: Right Popliteal: Unremarkable. Left Popliteal: Unremarkable. POSTERIOR TIBIAL VEIN: Right PTV: Unremarkable. Left PTV: Unremarkable. OTHER FINDINGS: None. IMPRESSION: No evidence of deep venous thrombosis.
[2017-07-19] MEDS: Enoxaparin 40 mg Syringe SC SCH (09:48)
[2017-07-19] MEDS: Pantoprazole 40 mg EC Tab PO SCH (09:50)
--- NOTE | 2017-07-19 10:08 | CP.PCM.PN ---
Subjective - Date & Time of Evaluation Date of Evaluation: 07/19/17 Time of Evaluation: 09:50 - Subjective Subjective: Sitting up in bed, comfortable at rest. Wearing BiPAP mask for most of the day, removing it only temporarily for meals. Primarily in bed, getting OOB to use the bedside cammode. Vital signs remain stable and SpO2 is >95% consistently. Cushingoid, flushed facies. Mood appears good, talkative. Not in any respiratory distress while on BiPAP. Breath sounds are very much diminished bilaterally and inspiratory phase is shortened. Dependant edema still present, but decreasing. No cyanosis. Venous duplex of LE's negative for DVT. EKG shows a pulmonary disease pattern with R atrial enlargement. An echocardiogram from a year ago shows RV dilatation (poor echo window). There is likely some degree of pulmonary hypertension. Will have physical therapy eval. Nasal O2 at 4LPM for periods as tolerated. Reduce solumedrol to 30MG Q8H. Will add acetazolamide to regimen slowly. Objective - Vital Signs/Intake and Output Vital Signs (last 24 hours): Temp Pulse Resp BP Pulse Ox 98.3 F 93 H 18 135/81 98 07/19/17 08:48 07/19/17 08:48 07/19/17 08:48 07/19/17 08:48 07/19/17 05:06 - Medications Medications: Current Medications Acetylcysteine (Acetylcysteine 20%) 2 ml INH RBID [facility] Last Admin: 07/19/17 07:30 Dose: 2 ml Albuterol Sulfate (Albuterol 0.083% Inhal Caridad (2.5 Mg/3 Ml) Ud) 2.5 mg INH RQ4 PRN PRN Reason: Shortness of Breath Last Admin: 07/19/17 02:19 Dose: 2.5 mg Albuterol/Ipratropium (Duoneb 3 Mg/0.5 Mg (3 Ml) Ud) 3 ml INH RQID [facility] Last Admin: 07/19/17 07:30 Dose: 3 ml Alprazolam (Xanax) 0.5 mg PO BID PRN PRN Reason: Anxiety Last Admin: 07/18/17 23:03 Dose: 0.5 mg Calamine (Calamine Lotion) 1 applic TOP Q6 PRN PRN Reason: Itching / Pruritus Cholecalciferol (Vitamin D) 1,000 iu PO DAILY [facility] Last Admin: 07/18/17 11:18 Dose: 1,000 iu Diphenhydramine HCl (Benadryl) 50 mg PO Q6 PRN PRN Reason: Itching / Pruritus Enoxaparin Sodium (Lovenox) 40 mg SC DAILY [facility] PRN Reason: Protocol Last Admin: 07/18/17 10:13 Dose: 40 mg Fluticasone Propionate (Flonase) 2 spr KIRBY HS [facility] Last Admin: 07/18/17 21:57 Dose: 2 spr Sodium Chloride (Sodium Chloride 0.9%) 1,000 mls @ 75 mls/hr IV .[id number] [facility] Last Admin: 07/18/17 21:59 Dose: 75 mls/hr Methylprednisolone 40 mg/ (Sodium Chloride) 50.64 mls @ 100 mls/hr IVPB Q8 [facility] Last Admin: 07/19/17 01:12 Dose: 100 mls/hr Oxycodone/Acetaminophen (Percocet 5/325 Mg Tab) 1 tab PO Q6 PRN PRN Reason: Pain, moderate (4-7) Stop: 07/19/17 11:26 Last Admin: 07/19/17 06:28 Dose: 1 tab Pantoprazole Sodium (Protonix Ec Tab) 40 mg PO DAILY [facility] Last Admin: 07/18/17 10:13 Dose: 40 mg Sodium Chloride ([place] Nasal [place]) 1 sprays KIRBY Q4 PRN PRN Reason: Nasal congestion - Labs Labs: 07/17/17 06:00 07/17/17 06:00 PT 10.1 Seconds (9.8-13.1) 07/16/17 06:00 INR 0.9 (0.9-1.2) 07/16/17 06:00 APTT 24.2 Seconds (25.6-37.1) L 07/16/17 06:00 Assessment and Plan (1) Acute on chronic respiratory failure with hypoxia and hypercapnia Status: Acute (2) COPD exacerbation Status: Acute (3) Lymphangioleiomyomatosis Status: Chronic
[2017-07-19] MEDS: acetaZOLAMIDE 500 mg SR Cap PO SCH (13:08)
[2017-07-19] MEDS: methylPREDNISolone 30 MG in Sodium Chloride 0.9% 50 ML IVPB SCH (17:08)
[2017-07-19] MEDS: Sodium Chloride 0.9% 1,000 ML IV SCH (17:09)
--- NOTE | 2017-07-19 19:34 | CP.PCM.PN ---
Subjective - Date & Time of Evaluation Date of Evaluation: 07/19/17 Time of Evaluation: 22:22 - Subjective Subjective: Above noted SOB last night when seen which improved with respiratory tx Objective - Vital Signs/Intake and Output Vital Signs (last 24 hours): Temp Pulse Resp BP Pulse Ox 98.5 F 80 20 115/77 98 07/19/17 16:19 07/19/17 16:19 07/19/17 16:19 07/19/17 16:19 07/19/17 16:19 - Medications Medications: Current Medications Acetazolamide (Diamox Sequels 500 Mg Sr Cap) 500 mg PO DAILY [facility] Last Admin: 07/19/17 13:08 Dose: 500 mg Acetylcysteine (Acetylcysteine 20%) 2 ml INH RBID [facility] Last Admin: 07/19/17 19:03 Dose: 2 ml Albuterol Sulfate (Albuterol 0.083% Inhal Caridad (2.5 Mg/3 Ml) Ud) 2.5 mg INH RQ4 PRN PRN Reason: Shortness of Breath Last Admin: 07/19/17 02:19 Dose: 2.5 mg Albuterol/Ipratropium (Duoneb 3 Mg/0.5 Mg (3 Ml) Ud) 3 ml INH RQID [facility] Last Admin: 07/19/17 19:03 Dose: 3 ml Calamine (Calamine Lotion) 1 applic TOP Q6 PRN PRN Reason: Itching / Pruritus Cholecalciferol (Vitamin D) 1,000 iu PO DAILY [facility] Last Admin: 07/19/17 09:51 Dose: 1,000 iu Diphenhydramine HCl (Benadryl) 50 mg PO Q6 PRN PRN Reason: Itching / Pruritus Enoxaparin Sodium (Lovenox) 40 mg SC DAILY [facility] PRN Reason: Protocol Last Admin: 07/19/17 09:48 Dose: 40 mg Fluticasone Propionate (Flonase) 2 spr KIRBY HS [facility] Last Admin: 07/18/17 21:57 Dose: 2 spr Sodium Chloride (Sodium Chloride 0.9%) 1,000 mls @ 75 mls/hr IV .[id number] [facility] Last Admin: 07/19/17 17:09 Dose: 75 mls/hr Methylprednisolone 30 mg/ (Sodium Chloride) 50 mls @ 100 mls/hr IVPB Q8 [facility] Last Admin: 07/19/17 17:08 Dose: 100 mls/hr Oxycodone/Acetaminophen (Percocet 5/325 Mg Tab) 1 tab PO Q6 PRN PRN Reason: Pain, moderate (4-7) Stop: 07/22/17 17:29 Last Admin: 07/19/17 17:42 Dose: 1 tab Pantoprazole Sodium (Protonix Ec Tab) 40 mg PO DAILY [facility] Last Admin: 07/19/17 09:50 Dose: 40 mg Sodium Chloride ([place] Nasal [place]) 1 sprays KIRBY Q4 PRN PRN Reason: Nasal congestion - Labs Labs: 07/17/17 06:00 07/17/17 06:00 PT 10.1 Seconds (9.8-13.1) 07/16/17 06:00 INR 0.9 (0.9-1.2) 07/16/17 06:00 APTT 24.2 Seconds (25.6-37.1) L 07/16/17 06:00 - Respiratory Exam Respiratory Exam: Respiratory Distress - Cardiovascular Exam Cardiovascular Exam: REGULAR RHYTHM - GI/Abdominal Exam GI & Abdominal Exam: Normal Bowel Sounds Assessment and Plan - Assessment and Plan (Free Text) Assessment: COPD Lymphangioleiomyomatosis Pulm HTN? Bipap Pulmonary B-agonists Steroids Lung transplant at [place]? appt in Nov Obesity Chronic Pain Cont meds Mood changes No major depression
[2017-07-20] MEDS: methylPREDNISolone 30 MG in Sodium Chloride 0.9% 50 ML IVPB SCH ×2 (01:15→08:57)
[2017-07-20] MEDS: Albuterol 0.083% Inhal Sol (2.5 mg/3 mL) UD INH PRN (01:56)
[2017-07-20] MEDS: Acetylcysteine 20% Inhal Soln (4ml) INH SCH (07:35)
[2017-07-20] MEDS: Albuterol-Ipratrop 3 mg / 0.5 (3 ml) UD INH SCH ×3 (07:35→15:29)
[2017-07-20] MEDS: Pantoprazole 40 mg EC Tab PO SCH (08:57)
[2017-07-20] MEDS: Enoxaparin 40 mg Syringe SC SCH (08:57)
[2017-07-20] MEDS: acetaZOLAMIDE 500 mg SR Cap PO SCH (08:57)
[2017-07-20] MEDS: Oxycodone/Acetaminophen 5/325 mg Tab PO PRN (09:44)
[2017-07-20 12:43] VITALS: O2SAT 97
[2017-07-20] MEDS: Sodium Chloride 0.9% 1,000 ML IV SCH (15:17)
[2017-07-20 15:59] VITALS: BP 139/82; PULSE 101; RESP 22; TEMP 98.5
--- NOTE | 2017-07-20 16:10 | CP.PCM.PN ---
Subjective - Date & Time of Evaluation Date of Evaluation: 07/20/17 Time of Evaluation: 22:22 - Subjective Subjective: Improved U/A WBC Objective - Vital Signs/Intake and Output Vital Signs (last 24 hours): Temp Pulse Resp BP Pulse Ox 98.5 F 101 H 22 139/82 97 07/20/17 15:58 07/20/17 15:58 07/20/17 15:58 07/20/17 15:58 07/20/17 15:58 - Medications Medications: Current Medications Acetazolamide (Diamox Sequels 500 Mg Sr Cap) 500 mg PO DAILY [facility] Last Admin: 07/20/17 08:57 Dose: 500 mg Acetylcysteine (Acetylcysteine 20%) 2 ml INH RBID [facility] Last Admin: 07/20/17 07:35 Dose: 2 ml Albuterol Sulfate (Albuterol 0.083% Inhal [place] (2.5 Mg/3 Ml) Ud) 2.5 mg INH RQ4 PRN PRN Reason: Shortness of Breath Last Admin: 07/20/17 01:56 Dose: 2.5 mg Albuterol/Ipratropium (Duoneb 3 Mg/0.5 Mg (3 Ml) Ud) 3 ml INH RQID [facility] Last Admin: 07/20/17 15:29 Dose: 3 ml Calamine (Calamine Lotion) 1 applic TOP Q6 PRN PRN Reason: Itching / Pruritus Cholecalciferol (Vitamin D) 1,000 iu PO DAILY [facility] Last Admin: 07/20/17 08:57 Dose: 1,000 iu Diphenhydramine HCl (Benadryl) 50 mg PO Q6 PRN PRN Reason: Itching / Pruritus Enoxaparin Sodium (Lovenox) 40 mg SC DAILY [facility] PRN Reason: Protocol Last Admin: 07/20/17 08:57 Dose: 40 mg Fluticasone Propionate (Flonase) 2 spr KIRBY HS [facility] Last Admin: 07/19/17 21:28 Dose: 2 spr Sodium Chloride (Sodium Chloride 0.9%) 1,000 mls @ 75 mls/hr IV .[id number] [facility] Last Admin: 07/20/17 15:17 Dose: 75 mls/hr Methylprednisolone 30 mg/ (Sodium Chloride) 50 mls @ 100 mls/hr IVPB Q12 [facility] Oxycodone/Acetaminophen (Percocet 5/325 Mg Tab) 1 tab PO Q6 PRN PRN Reason: Pain, moderate (4-7) Stop: 07/22/17 17:29 Last Admin: 07/20/17 09:44 Dose: 1 tab Pantoprazole Sodium (Protonix Ec Tab) 40 mg PO DAILY [facility] Last Admin: 07/20/17 08:57 Dose: 40 mg Sodium Chloride ([place] Nasal [place]) 1 sprays KIRBY Q4 PRN PRN Reason: Nasal congestion - Labs Labs: 07/17/17 06:00 07/17/17 06:00 PT 10.1 Seconds (9.8-13.1) 07/16/17 06:00 INR 0.9 (0.9-1.2) 07/16/17 06:00 APTT 24.2 Seconds (25.6-37.1) L 07/16/17 06:00 - Respiratory Exam Respiratory Exam: NORMAL BREATHING PATTERN - Cardiovascular Exam Cardiovascular Exam: Tachycardia, REGULAR RHYTHM - GI/Abdominal Exam GI & Abdominal Exam: Normal Bowel Sounds Assessment and Plan - Assessment and Plan (Free Text) Assessment: COPD Lymphangioleiomyomatosis Pulm HTN? Bipap Pulmonary B-agonists Steroids Lung transplant at [place]? appt in Nov UTI Macrodantin Obesity Chronic Pain Cont meds Mood changes No major depression
[2017-07-20] MEDS ORDERED: methylPREDNISolone 30 MG in Sodium Chloride 0.9% 50 ML IVPB SCH (21:00)
--- NOTE | 2017-07-21 07:43 | CP.PCM.PN ---
Subjective - Date & Time of Evaluation Date of Evaluation: 07/20/17 Time of Evaluation: 10:00 - Subjective Subjective: Seen sitting up in bed. Appears to be breathing more comfortably. Flushed facies, cushingoid appearance. Vital signs have been stable. Adequate oxygenation using BiPAP mask ventilation. Has been using regular nasal canula at 4LPM intermittently. Able to do physical therapy. Plan for short course BRANDEN followed by DC to home. Steroid dose to be reduced further. Objective - Vital Signs/Intake and Output Vital Signs (last 24 hours): Temp Pulse Resp BP Pulse Ox 98.5 F 101 H 22 139/82 97 07/20/17 15:58 07/20/17 15:58 07/20/17 15:58 07/20/17 15:58 07/20/17 15:58 - Labs Labs: 07/17/17 06:00 07/17/17 06:00 PT 10.1 Seconds (9.8-13.1) 07/16/17 06:00 INR 0.9 (0.9-1.2) 07/16/17 06:00 APTT 24.2 Seconds (25.6-37.1) L 07/16/17 06:00 Assessment and Plan (1) Acute on chronic respiratory failure with hypoxia and hypercapnia Status: Acute (2) COPD exacerbation Status: Acute (3) Lymphangioleiomyomatosis Status: Chronic
== END 2017-07-20 15:30 | DRG 189 ==
LOC: H.ER 05:22 → H.ERHOLD 10:20 → H.TEL 12:56 → OBSVTOIN 07-17 10:49
PROVIDERS: ADMIT Family Medicine Geriatric Medicine; ATTEND Family Medicine Geriatric Medicine
DX: J96.21 Acute and chronic respiratory failure with hypoxia (principal); J84.81 Lymphangioleiomyomatosis; J44.1 Chronic obstructive pulmonary disease with (acute) exacerbation; N39.0 Urinary tract infection, site not specified; J96.22 Acute and chronic respiratory failure with hypercapnia; G89.4 Chronic pain syndrome; Z87.891 Personal history of nicotine dependence; J45.909 Unspecified asthma, uncomplicated; F41.9 Anxiety disorder, unspecified; E66.9 Obesity, unspecified; Z68.32 Body mass index [BMI] 32.0-32.9, adult; Z88.2 Allergy status to sulfonamides

== ENCOUNTER 2017-07-20 14:57 | Inpatient (IN) | payer OTHER, MEDICAID ==
[2017-07-20 16:39] VITALS: BMI 32.1
[2017-07-20] MEDS ORDERED: Calamine/Zinc Oxide LOTION TOP PRN (16:47)
[2017-07-20] MEDS ORDERED: Nasal Spray(Ocean spray) NAS PRN (16:47)
[2017-07-20] MEDS: Acetylcysteine 20% Inhal Soln (4ml) INH SCH (19:11)
[2017-07-20] MEDS: Albuterol-Ipratrop 3 mg / 0.5 (3 ml) UD INH SCH (19:11)
[2017-07-20] MEDS: Oxycodone/Acetaminophen 5/325 mg Tab PO PRN (19:21)
[2017-07-20] MEDS ORDERED: MethylPREDNISolone 40 mg Vial IV SCH (21:00)
[2017-07-20] MEDS: methylPREDNISolone 30 MG in Sodium Chloride 0.9% 50 ML IVPB SCH (21:01)
[2017-07-20] MEDS: Albuterol 0.083% Inhal Sol (2.5 mg/3 mL) UD INH PRN (23:41)
[2017-07-21] MEDS: Albuterol 0.083% Inhal Sol (2.5 mg/3 mL) UD INH PRN ×2 (04:25→18:16)
[2017-07-21] MEDS: Acetylcysteine 20% Inhal Soln (4ml) INH SCH ×2 (07:32→18:15)
[2017-07-21] MEDS: Albuterol-Ipratrop 3 mg / 0.5 (3 ml) UD INH SCH ×4 (07:32→20:12)
[2017-07-21] MEDS: Oxycodone/Acetaminophen 5/325 mg Tab PO PRN ×2 (08:05→14:02)
[2017-07-21] MEDS: Enoxaparin 40 mg Syringe SC SCH (08:07)
[2017-07-21] MEDS: acetaZOLAMIDE 500 mg SR Cap PO SCH (08:08)
[2017-07-21] MEDS: methylPREDNISolone 30 MG in Sodium Chloride 0.9% 50 ML IVPB SCH (10:18)
--- NOTE | 2017-07-21 12:26 | CP.PCM.CON ---
History of Present Illness - History of Present Illness History of Present Illness: This 57-year-old female is well-known to me from the outpatient setting as well as prior hospitalizations. She suffers from lymphangioleiomyomatosis and has severe compromising lung disease as a result. She also has comorbid COPD secondary to prior cigarette habit. She was admitted on this occasion to acute medicine because of shortness of breath which has been unresponsive to home treatment and presented to the emergency department. She is on chronic oxygen therapy at home and also uses BiPAP mask ventilation as well. She is scheduled for evaluation at [facility] on August 16 regarding possible lung transplantation. Past Patient History - Infectious Disease Hx of Infectious Diseases: None - Past Medical History & Family History Past Medical History?: Yes - Past Social History Smoking Status: Former Smoker Chewing Tobacco Use: No Cigar Use: No Alcohol: Social Drugs: Denies Home Situation {Lives}: Alone - CARDIAC Hx Cardiac Disorders: No - PULMONARY Hx Chronic Obstructive Pulmonary Disease (COPD): Yes Other/Comment: Lymphangioleiomyomatosis. Spontaneous pneumothoraces 2 secondary to the above. - NEUROLOGICAL Hx Neurological Disorder: No - HEENT Hx HEENT Problems: No - RENAL Hx Chronic Kidney Disease: No - ENDOCRINE/METABOLIC Hx Endocrine Disorders: No - HEMATOLOGICAL/ONCOLOGICAL Hx Blood Disorders: No Hx Human Immunodeficiency Virus (HIV): No - INTEGUMENTARY Hx Dermatological Problems: No - MUSCULOSKELETAL/RHEUMATOLOGICAL Hx Back Pain: Yes Hx Falls: No - GASTROINTESTINAL Hx Gastrointestinal Disorders: No - GENITOURINARY/GYNECOLOGICAL Other/Comment: endometriosis,uterine fibroids - PSYCHIATRIC Hx Anxiety: Yes Hx Substance Use: No - SURGICAL HISTORY Hx Pulmonary Surgery: Yes (VATS lung biopsy and pleurodesis) Other/Comment: breast cyst removal (benign), D&C for uterine fibroids, chest tube x2 (spontaneous pneumothorax) with lung biopsy done on second episode. - ANESTHESIA Hx Anesthesia: Yes Hx Anesthesia Reactions: No Hx Malignant Hyperthermia: No Meds Allergies/Adverse Reactions: Allergies Allergy/AdvReac Type Severity Reaction Status Date / Time Sulfa (Sulfonamide Allergy RASH Verified 07/20/17 16:39 Antibiotics) - Medications Medications: Current Medications Acetazolamide (Diamox Sequels 500 Mg Sr Cap) 500 mg PO DAILY [facility] Last Admin: 07/21/17 08:08 Dose: 500 mg Acetylcysteine (Acetylcysteine 20%) 2 ml INH RBID [facility] Last Admin: 07/21/17 07:32 Dose: 2 ml Albuterol Sulfate (Albuterol 0.083% Inhal [place] (2.5 Mg/3 Ml) Ud) 2.5 mg INH RQ4 PRN PRN Reason: Shortness of Breath Last Admin: 07/21/17 04:25 Dose: 2.5 mg Albuterol/Ipratropium (Duoneb 3 Mg/0.5 Mg (3 Ml) Ud) 3 ml INH RQID [facility] Last Admin: 07/21/17 11:14 Dose: 3 ml Alprazolam (Xanax) 0.5 mg PO BID PRN PRN Reason: Anxiety Last Admin: 07/21/17 00:18 Dose: 0.5 mg Calamine (Calamine Lotion) 1 applic TOP Q6 PRN PRN Reason: Itching / Pruritus Cholecalciferol (Vitamin D) 1,000 iu PO DAILY [facility] Last Admin: 07/21/17 08:08 Dose: 1,000 iu Diphenhydramine HCl (Benadryl) 50 mg PO Q6 PRN PRN Reason: Itching / Pruritus Enoxaparin Sodium (Lovenox) 40 mg SC DAILY [facility] PRN Reason: Protocol Last Admin: 07/21/17 08:07 Dose: 40 mg Fluticasone Propionate (Flonase) 2 spr KIRBY HS [facility] Last Admin: 07/20/17 21:01 Dose: 2 spr Methylprednisolone 30 mg/ (Sodium Chloride) 100 mls @ 200 mls/hr IVPB Q12 [facility] Nitrofurantoin Macrocrystals (Macrobid) 100 mg PO Q12 [facility] Last Admin: 07/21/17 08:08 Dose: 100 mg Oxycodone/Acetaminophen (Percocet 5/325 Mg Tab) 1 tab PO Q6 PRN PRN Reason: Pain, moderate (4-7) Stop: 07/23/17 16:48 Last Admin: 07/21/17 08:05 Dose: 1 tab Sodium Chloride ([place] Nasal [place]) 1 sprays KIRBY Q4 PRN PRN Reason: Nasal congestion Physical Exam - Additional Findings Additional findings: Sitting up in bed at the time of exam wearing nasal cannula at 4LPM. Well-developed female, overweight. Cushingoid, flushed facies. Trace dependent edema of both ankles, no cyanosis. No calf tenderness or palpable venous cords. No palpable lymphadenopathy. Neck is supple and trachea is midline, no neck vein distention or carotid bruit. No palpable thyromegaly. No dullness to chest percussion. No subcutaneous emphysema. Breath sounds are present bilaterally, diminished. Inspiratory phase is shortened. Rare sonorous rhonchi in the lower lobes bilaterally. No audible wheezing. No bronchial breathing, no egophony. Heart sounds are well heard, mildly tachycardic. No murmur is heard. Abdomen is soft and nontender. Bowel sounds are well heard. No mass. Results - Vital Signs Recent Vital Signs: Last Vital Signs Temp 97.5 F L 07/21/17 08:27 Pulse 99 H 07/21/17 10:32 Resp 20 07/21/17 08:27 BP 136/78 07/21/17 08:27 Pulse Ox 100 07/21/17 10:32 Assessment & Plan (1) Acute on chronic respiratory failure with hypoxia and hypercapnia Status: Acute Priority: High (2) COPD exacerbation Status: Acute Priority: High (3) Lymphangioleiomyomatosis Status: Chronic Priority: High - Assessment and Plan (Free Text) Plan: Treatment is directed primarily at the underlying COPD with chronic hypoxemic and hypercapnic respiratory failure due to the combination of illnesses. Aerosol treatments and parenteral corticosteroids are to continue. Physical therapy for general debilitation. Noninvasive positive pressure ventilation as needed and oxygen via nasal cannula when not on BiPAP. - Date & Time Date: 07/21/17 Time: 12:30
--- NOTE | 2017-07-21 21:40 | CP.PCM.HP ---
History of Present Illness - History of Present Illness History of Present Illness: 57 yo admitted to TCU for deconditioning and chronic lung dx Present on Admission - Present on Admission Any Indicators Present on Admission: No Past Patient History - Infectious Disease Hx of Infectious Diseases: None - Past Medical History & Family History Past Medical History?: Yes - Past Social History Smoking Status: Former Smoker Chewing Tobacco Use: No Cigar Use: No Alcohol: Social Drugs: Denies Home Situation {Lives}: Alone - CARDIAC Hx Cardiac Disorders: No - PULMONARY Hx Chronic Obstructive Pulmonary Disease (COPD): Yes Other/Comment: Lymphangioleiomyomatosis. Spontaneous pneumothoraces 2 secondary to the above. - NEUROLOGICAL Hx Neurological Disorder: No - HEENT Hx HEENT Problems: No - RENAL Hx Chronic Kidney Disease: No - ENDOCRINE/METABOLIC Hx Endocrine Disorders: No - HEMATOLOGICAL/ONCOLOGICAL Hx Blood Disorders: No Hx Human Immunodeficiency Virus (HIV): No - INTEGUMENTARY Hx Dermatological Problems: No - MUSCULOSKELETAL/RHEUMATOLOGICAL Hx Back Pain: Yes Hx Falls: No - GASTROINTESTINAL Hx Gastrointestinal Disorders: No - GENITOURINARY/GYNECOLOGICAL Other/Comment: endometriosis,uterine fibroids - PSYCHIATRIC Hx Anxiety: Yes Hx Substance Use: No - SURGICAL HISTORY Hx Pulmonary Surgery: Yes (VATS lung biopsy and pleurodesis) Other/Comment: breast cyst removal (benign), D&C for uterine fibroids, chest tube x2 (spontaneous pneumothorax) with lung biopsy done on second episode. - ANESTHESIA Hx Anesthesia: Yes Hx Anesthesia Reactions: No Hx Malignant Hyperthermia: No Meds Allergies/Adverse Reactions: Allergies Allergy/AdvReac Type Severity Reaction Status Date / Time Sulfa (Sulfonamide Allergy RASH Verified 07/20/17 16:39 Antibiotics) Physical Exam - Respiratory Exam Respiratory Exam: NORMAL BREATHING PATTERN - Cardiovascular Exam Cardiovascular Exam: REGULAR RHYTHM - GI/Abdominal Exam GI & Abdominal Exam: Normal Bowel Sounds Results - Vital Signs Recent Vital Signs: Last Vital Signs Temp 97.5 F L 07/21/17 21:15 Pulse 83 07/21/17 21:15 Resp 20 07/21/17 21:15 BP 128/74 07/21/17 21:15 Pulse Ox 95 07/21/17 21:15 Assessment & Plan - Assessment and Plan (Free Text) Assessment: Deconditioning TCU COPD Lymphangioleiomyomatosis Pulm HTN? Bipap Pulmonary B-agonists Steroids Lung transplant at [place]? appt in Nov UTI Macrodantin Obesity Chronic Pain Cont meds Mood changes No major depression - Date & Time Date: 07/21/17 Time: 22:22
[2017-07-21] MEDS: METHYLPREDNISOLONE IVPB SCH (22:18)
[2017-07-21] MEDS: SODIUM CHLORIDE 0.9% IVPB SCH (22:18)
[2017-07-22] MEDS: Oxycodone/Acetaminophen 5/325 mg Tab PO PRN ×2 (04:02→14:20)
[2017-07-22] MEDS: Albuterol 0.083% Inhal Sol (2.5 mg/3 mL) UD INH PRN (04:33)
--- NOTE | 2017-07-22 07:22 | CP.PCM.PN ---
Subjective - Date & Time of Evaluation Date of Evaluation: 07/22/17 Time of Evaluation: 22:22 - Subjective Subjective: Doing better Objective - Vital Signs/Intake and Output Vital Signs (last 24 hours): Temp Pulse Resp BP Pulse Ox 97.5 F L 96 H 20 128/74 95 07/21/17 21:15 07/22/17 04:20 07/21/17 21:15 07/21/17 21:15 07/21/17 21:15 - Medications Medications: Current Medications Acetazolamide (Diamox Sequels 500 Mg Sr Cap) 500 mg PO DAILY [facility] Last Admin: 07/21/17 08:08 Dose: 500 mg Acetylcysteine (Acetylcysteine 20%) 2 ml INH RBID [facility] Last Admin: 07/21/17 18:15 Dose: 2 ml Albuterol Sulfate (Albuterol 0.083% Inhal [place]idad (2.5 Mg/3 Ml) Ud) 2.5 mg INH RQ4 PRN PRN Reason: Shortness of Breath Last Admin: 07/22/17 04:33 Dose: 2.5 mg Albuterol/Ipratropium (Duoneb 3 Mg/0.5 Mg (3 Ml) Ud) 3 ml INH RQID [facility] Last Admin: 07/21/17 20:12 Dose: 3 ml Alprazolam (Xanax) 0.5 mg PO BID PRN PRN Reason: Anxiety Last Admin: 07/21/17 22:29 Dose: 0.5 mg Calamine (Calamine Lotion) 1 applic TOP Q6 PRN PRN Reason: Itching / Pruritus Cholecalciferol (Vitamin D) 1,000 iu PO DAILY [facility] Last Admin: 07/21/17 08:08 Dose: 1,000 iu Diphenhydramine HCl (Benadryl) 50 mg PO Q6 PRN PRN Reason: Itching / Pruritus Enoxaparin Sodium (Lovenox) 40 mg SC DAILY [facility] PRN Reason: Protocol Last Admin: 07/21/17 08:07 Dose: 40 mg Fluticasone Propionate (Flonase) 2 spr KIRBY HS [facility] Last Admin: 07/21/17 22:17 Dose: 2 spr Methylprednisolone 30 mg/ (Sodium Chloride) 100 mls @ 200 mls/hr IVPB Q12 [facility] Last Admin: 07/21/17 22:18 Dose: 200 mls/hr Nitrofurantoin Macrocrystals (Macrobid) 100 mg PO Q12 [facility] Last Admin: 07/21/17 22:17 Dose: 100 mg Oxycodone/Acetaminophen (Percocet 5/325 Mg Tab) 1 tab PO Q6 PRN PRN Reason: Pain, moderate (4-7) Stop: 07/23/17 16:48 Last Admin: 07/22/17 04:02 Dose: 1 tab Sodium Chloride ([place] Nasal [place]) 1 sprays KIRBY Q4 PRN PRN Reason: Nasal congestion - Respiratory Exam Respiratory Exam: NORMAL BREATHING PATTERN - Cardiovascular Exam Cardiovascular Exam: REGULAR RHYTHM - GI/Abdominal Exam GI & Abdominal Exam: Normal Bowel Sounds Assessment and Plan - Assessment and Plan (Free Text) Assessment: Deconditioning TCU COPD Lymphangioleiomyomatosis Pulm HTN? Bipap Pulmonary B-agonists Steroids Lung transplant at [place]? appt in Nov UTI Macrodantin Obesity Chronic Pain Cont meds Mood changes No major depression
[2017-07-22] MEDS: Acetylcysteine 20% Inhal Soln (4ml) INH SCH ×2 (08:20→21:07)
[2017-07-22] MEDS: Albuterol-Ipratrop 3 mg / 0.5 (3 ml) UD INH SCH ×4 (08:20→21:08)
[2017-07-22] MEDS: Enoxaparin 40 mg Syringe SC SCH (08:56)
[2017-07-22] MEDS: acetaZOLAMIDE 500 mg SR Cap PO SCH (08:57)
[2017-07-22] MEDS: METHYLPREDNISOLONE IVPB SCH ×2 (08:59→21:45)
[2017-07-22] MEDS: SODIUM CHLORIDE 0.9% IVPB SCH ×2 (08:59→21:45)
[2017-07-23] MEDS: Albuterol 0.083% Inhal Sol (2.5 mg/3 mL) UD INH PRN (04:35)
[2017-07-23] MEDS: Oxycodone/Acetaminophen 5/325 mg Tab PO PRN ×2 (05:41→21:35)
[2017-07-23] MEDS: Acetylcysteine 20% Inhal Soln (4ml) INH SCH ×2 (07:17→19:39)
[2017-07-23] MEDS: Albuterol-Ipratrop 3 mg / 0.5 (3 ml) UD INH SCH ×4 (07:18→19:39)
[2017-07-23] MEDS: Enoxaparin 40 mg Syringe SC SCH (08:49)
[2017-07-23] MEDS: acetaZOLAMIDE 500 mg SR Cap PO SCH (08:49)
[2017-07-23] MEDS: METHYLPREDNISOLONE IVPB SCH ×2 (08:51→21:03)
[2017-07-23] MEDS: SODIUM CHLORIDE 0.9% IVPB SCH ×2 (08:51→21:03)
--- NOTE | 2017-07-23 10:03 | CP.PCM.PN ---
Subjective - Date & Time of Evaluation Date of Evaluation: 07/23/17 Time of Evaluation: 22:22 - Subjective Subjective: Continues to do well Objective - Vital Signs/Intake and Output Vital Signs (last 24 hours): Temp Pulse Resp BP Pulse Ox 97.0 F L 85 20 122/81 100 07/23/17 08:03 07/23/17 08:04 07/23/17 08:03 07/23/17 08:03 07/23/17 08:03 - Medications Medications: Current Medications Acetazolamide (Diamox Sequels 500 Mg Sr Cap) 500 mg PO DAILY [facility] Last Admin: 07/23/17 08:49 Dose: 500 mg Acetylcysteine (Acetylcysteine 20%) 2 ml INH RBID [facility] Last Admin: 07/23/17 07:17 Dose: 2 ml Albuterol Sulfate (Albuterol 0.083% Inhal [place] (2.5 Mg/3 Ml) Ud) 2.5 mg INH RQ4 PRN PRN Reason: Shortness of Breath Last Admin: 07/23/17 04:35 Dose: 2.5 mg Albuterol/Ipratropium (Duoneb 3 Mg/0.5 Mg (3 Ml) Ud) 3 ml INH RQID [facility] Last Admin: 07/23/17 07:18 Dose: 3 ml Alprazolam (Xanax) 0.5 mg PO BID PRN PRN Reason: Anxiety Last Admin: 07/22/17 21:46 Dose: 0.5 mg Calamine (Calamine Lotion) 1 applic TOP Q6 PRN PRN Reason: Itching / Pruritus Cholecalciferol (Vitamin D) 1,000 iu PO DAILY [facility] Last Admin: 07/23/17 08:49 Dose: 1,000 iu Diphenhydramine HCl (Benadryl) 50 mg PO Q6 PRN PRN Reason: Itching / Pruritus Enoxaparin Sodium (Lovenox) 40 mg SC DAILY [facility] PRN Reason: Protocol Last Admin: 07/23/17 08:49 Dose: 40 mg Fluticasone Propionate (Flonase) 2 spr KIRBY HS [facility] Last Admin: 07/22/17 21:44 Dose: 2 spr Methylprednisolone 30 mg/ (Sodium Chloride) 100 mls @ 200 mls/hr IVPB Q12 [facility] Last Admin: 07/23/17 08:51 Dose: 200 mls/hr Nitrofurantoin Macrocrystals (Macrobid) 100 mg PO Q12 [facility] Last Admin: 07/23/17 08:49 Dose: 100 mg Oxycodone/Acetaminophen (Percocet 5/325 Mg Tab) 1 tab PO Q6 PRN PRN Reason: Pain, moderate (4-7) Stop: 07/23/17 16:48 Last Admin: 07/23/17 05:41 Dose: 1 tab Sodium Chloride ([place] Nasal [place]) 1 sprays KIRBY Q4 PRN PRN Reason: Nasal congestion - Respiratory Exam Respiratory Exam: NORMAL BREATHING PATTERN - Cardiovascular Exam Cardiovascular Exam: REGULAR RHYTHM - GI/Abdominal Exam GI & Abdominal Exam: Normal Bowel Sounds Assessment and Plan - Assessment and Plan (Free Text) Assessment: Deconditioning TCU COPD Lymphangioleiomyomatosis Pulm HTN? Bipap Pulmonary B-agonists Steroids Lung transplant at [place]? appt in Nov UTI Macrodantin Obesity Chronic Pain Cont meds Mood changes No major depression
--- NOTE | 2017-07-23 13:27 | CP.PCM.PN ---
Subjective - Date & Time of Evaluation Date of Evaluation: 07/23/17 Time of Evaluation: 13:26 - Subjective Subjective: Presently sitting up in bed, appears comfortable. Using nasal cannula at 4 L/m. SPO2 94% at the present time. Continues to do well on the current regimen and is able to participate in physical therapy. Objective - Vital Signs/Intake and Output Vital Signs (last 24 hours): Temp Pulse Resp BP Pulse Ox 97.0 F L 85 20 122/81 100 07/23/17 08:03 07/23/17 08:04 07/23/17 08:03 07/23/17 08:03 07/23/17 08:03 - Medications Medications: Current Medications Acetazolamide (Diamox Sequels 500 Mg Sr Cap) 500 mg PO DAILY [facility] Last Admin: 07/23/17 08:49 Dose: 500 mg Acetylcysteine (Acetylcysteine 20%) 2 ml INH RBID [facility] Last Admin: 07/23/17 07:17 Dose: 2 ml Albuterol Sulfate (Albuterol 0.083% Inhal [place] (2.5 Mg/3 Ml) Ud) 2.5 mg INH RQ4 PRN PRN Reason: Shortness of Breath Last Admin: 07/23/17 04:35 Dose: 2.5 mg Albuterol/Ipratropium (Duoneb 3 Mg/0.5 Mg (3 Ml) Ud) 3 ml INH RQID [facility] Last Admin: 07/23/17 11:18 Dose: 3 ml Alprazolam (Xanax) 0.5 mg PO BID PRN PRN Reason: Anxiety Last Admin: 07/23/17 11:57 Dose: 0.5 mg Calamine (Calamine Lotion) 1 applic TOP Q6 PRN PRN Reason: Itching / Pruritus Cholecalciferol (Vitamin D) 1,000 iu PO DAILY [facility] Last Admin: 07/23/17 08:49 Dose: 1,000 iu Diphenhydramine HCl (Benadryl) 50 mg PO Q6 PRN PRN Reason: Itching / Pruritus Enoxaparin Sodium (Lovenox) 40 mg SC DAILY [facility] PRN Reason: Protocol Last Admin: 07/23/17 08:49 Dose: 40 mg Fluticasone Propionate (Flonase) 2 spr KIRBY HS [facility] Last Admin: 07/22/17 21:44 Dose: 2 spr Methylprednisolone 30 mg/ (Sodium Chloride) 100 mls @ 200 mls/hr IVPB Q12 [facility] Last Admin: 07/23/17 08:51 Dose: 200 mls/hr Nitrofurantoin Macrocrystals (Macrobid) 100 mg PO Q12 [facility] Last Admin: 07/23/17 08:49 Dose: 100 mg Oxycodone/Acetaminophen (Percocet 5/325 Mg Tab) 1 tab PO Q6 PRN PRN Reason: Pain, moderate (4-7) Stop: 07/23/17 16:48 Last Admin: 07/23/17 05:41 Dose: 1 tab Sodium Chloride ([place] Nasal [place]) 1 sprays KIRBY Q4 PRN PRN Reason: Nasal congestion Assessment and Plan (1) Acute on chronic respiratory failure with hypoxia and hypercapnia Status: Acute (2) COPD exacerbation Status: Acute (3) Lymphangioleiomyomatosis Status: Chronic
[2017-07-24] MEDS: Oxycodone/Acetaminophen 5/325 mg Tab PO PRN ×2 (06:27→16:27)
[2017-07-24 07:03] LABS: MEAN CELL VOLUME 91.3 fl (81.0-99.0); MEAN CORPUSCULAR HEMOGLOBIN 29.4 pg (27.0-31.0); MEAN CORPUSCULAR HGB CONC 32.2 g/dL (33.0-37.0); RED CELL DISTRIBUTION WIDTH 14.4 % (11.5-14.5); WHITE BLOOD COUNT 15.4 K/uL (4.8-10.8)
[2017-07-24 07:19] LABS: BLOOD UREA NITROGEN 18 mg/dl (7-17); CALCIUM 9.3 mg/dL (8.4-10.2); CARBON DIOXIDE 35 mmol/L (22-30); CHLORIDE 100 mmol/L (98-107); GFR AFRICAN-AMERICAN > 60; GLUCOSE,RANDOM 132 mg/dL (65-105); POTASSIUM 3.9 MMOL/L (3.6-5.0); SODIUM 144 mmol/l (132-148)
[2017-07-24] MEDS: Acetylcysteine 20% Inhal Soln (4ml) INH SCH ×2 (07:43→19:25)
[2017-07-24] MEDS: Albuterol-Ipratrop 3 mg / 0.5 (3 ml) UD INH SCH ×4 (07:43→19:25)
[2017-07-24] MEDS: acetaZOLAMIDE 500 mg SR Cap PO SCH (08:32)
[2017-07-24] MEDS: Enoxaparin 40 mg Syringe SC SCH (08:32)
[2017-07-24] MEDS ORDERED: methylPREDNISolone 40 MG in Sodium Chloride 0.9% 50 ML IVPB SCH (09:00)
--- NOTE | 2017-07-24 13:49 | CP.PCM.PN ---
Subjective - Date & Time of Evaluation Date of Evaluation: 07/24/17 Time of Evaluation: 22:22 - Subjective Subjective: Anxious about appt at [place] Concerned about transportation n Objective - Vital Signs/Intake and Output Vital Signs (last 24 hours): Temp Pulse Resp BP Pulse Ox 97.9 F 86 18 128/73 98 07/24/17 07:58 07/24/17 11:09 07/24/17 07:58 07/24/17 07:58 07/24/17 07:58 - Medications Medications: Current Medications Acetazolamide (Diamox Sequels 500 Mg Sr Cap) 500 mg PO DAILY [facility] Last Admin: 07/24/17 08:32 Dose: 500 mg Acetylcysteine (Acetylcysteine 20%) 2 ml INH RBID [facility] Last Admin: 07/24/17 07:43 Dose: 2 ml Albuterol Sulfate (Albuterol 0.083% Inhal [place] (2.5 Mg/3 Ml) Ud) 2.5 mg INH RQ4 PRN PRN Reason: Shortness of Breath Last Admin: 07/23/17 04:35 Dose: 2.5 mg Albuterol/Ipratropium (Duoneb 3 Mg/0.5 Mg (3 Ml) Ud) 3 ml INH RQID [facility] Last Admin: 07/24/17 11:08 Dose: 3 ml Alprazolam (Xanax) 0.5 mg PO BID PRN PRN Reason: Anxiety Last Admin: 07/23/17 11:57 Dose: 0.5 mg Calamine (Calamine Lotion) 1 applic TOP Q6 PRN PRN Reason: Itching / Pruritus Cholecalciferol (Vitamin D) 1,000 iu PO DAILY [facility] Last Admin: 07/24/17 08:33 Dose: 1,000 iu Diphenhydramine HCl (Benadryl) 50 mg PO Q6 PRN PRN Reason: Itching / Pruritus Enoxaparin Sodium (Lovenox) 40 mg SC DAILY [facility] PRN Reason: Protocol Last Admin: 07/24/17 08:32 Dose: 40 mg Fluticasone Propionate (Flonase) 2 spr KRIBY HS [facility] Last Admin: 07/23/17 21:03 Dose: 2 spr Methylprednisolone 40 mg/ (Sodium Chloride) 50 mls @ 100 mls/hr IVPB DAILY [facility] Last Admin: 07/24/17 10:59 Dose: 100 mls/hr Nitrofurantoin Macrocrystals (Macrobid) 100 mg PO Q12 [facility] Last Admin: 07/24/17 08:32 Dose: 100 mg Oxycodone/Acetaminophen (Percocet 5/325 Mg Tab) 1 tab PO Q6 PRN PRN Reason: Pain, severe (8-10) Stop: 07/26/17 21:10 Last Admin: 07/24/17 06:27 Dose: 1 tab Sodium Chloride ([place] Nasal [place]) 1 sprays KIRBY Q4 PRN PRN Reason: Nasal congestion Last Admin: 07/24/17 10:39 Dose: 1 spr - Labs Labs: 07/24/17 06:00 07/24/17 06:00 - Respiratory Exam Respiratory Exam: NORMAL BREATHING PATTERN - Cardiovascular Exam Cardiovascular Exam: REGULAR RHYTHM - GI/Abdominal Exam GI & Abdominal Exam: Normal Bowel Sounds Assessment and Plan - Assessment and Plan (Free Text) Assessment: Deconditioning TCU COPD Lymphangioleiomyomatosis Pulm HTN? Bipap Pulmonary B-agonists Steroids Lung transplant at [place]? appt in Nov UTI Macrodantin Obesity Chronic Pain Cont meds Mood changes No major depression
[2017-07-24 16:31] VITALS: RESP 20
[2017-07-25] MEDS: Albuterol 0.083% Inhal Sol (2.5 mg/3 mL) UD INH PRN (01:40)
[2017-07-25] MEDS: Oxycodone/Acetaminophen 5/325 mg Tab PO PRN ×3 (02:35→16:27)
[2017-07-25] MEDS: Acetylcysteine 20% Inhal Soln (4ml) INH SCH ×3 (07:09→21:17)
[2017-07-25] MEDS: Albuterol-Ipratrop 3 mg / 0.5 (3 ml) UD INH SCH ×4 (07:09→19:20)
[2017-07-25] MEDS: Enoxaparin 40 mg Syringe SC SCH (08:52)
[2017-07-25] MEDS: MethylPREDNISolone 40 mg Vial IVP SCH (08:53)
[2017-07-25] MEDS: acetaZOLAMIDE 500 mg SR Cap PO SCH (08:54)
--- NOTE | 2017-07-25 10:14 | CP.PCM.PN ---
Subjective - Date & Time of Evaluation Date of Evaluation: 07/25/17 Time of Evaluation: 10:00 - Subjective Subjective: Sitting up in bed. Mildly dyspneic with conversation. SpO2 remains 93% on 3.5LPM nasal canula oxygen. Vital signs have been stable. Breath sounds are very diminished bi;aterally w/o audible wheeze. Occasional dry rales are present posteriorly. No audible wheezes or bronchial breath sounds. Will update PFT and CT scan in preparation for appt at [facility] for possible lung transplant surgery. Objective - Vital Signs/Intake and Output Vital Signs (last 24 hours): Temp Pulse Resp BP Pulse Ox 96.4 F L 76 20 111/63 100 07/25/17 08:18 07/25/17 08:18 07/25/17 08:18 07/25/17 08:18 07/25/17 08:18 - Medications Medications: Current Medications Acetazolamide (Diamox Sequels 500 Mg Sr Cap) 500 mg PO DAILY [facility] Last Admin: 07/25/17 08:54 Dose: 500 mg Acetylcysteine (Acetylcysteine 20%) 2 ml INH RBID [facility] Last Admin: 07/25/17 07:09 Dose: 2 ml Albuterol Sulfate (Albuterol 0.083% Inhal [place] (2.5 Mg/3 Ml) Ud) 2.5 mg INH RQ4 PRN PRN Reason: Shortness of Breath Last Admin: 07/25/17 01:40 Dose: 2.5 mg Albuterol/Ipratropium (Duoneb 3 Mg/0.5 Mg (3 Ml) Ud) 3 ml INH RQID [facility] Last Admin: 07/25/17 07:09 Dose: 3 ml Alprazolam (Xanax) 0.5 mg PO BID PRN PRN Reason: Anxiety Last Admin: 07/24/17 18:44 Dose: 0.5 mg Calamine (Calamine Lotion) 1 applic TOP Q6 PRN PRN Reason: Itching / Pruritus Cholecalciferol (Vitamin D) 1,000 iu PO DAILY [facility] Last Admin: 07/25/17 08:53 Dose: 1,000 iu Diphenhydramine HCl (Benadryl) 50 mg PO Q6 PRN PRN Reason: Itching / Pruritus Enoxaparin Sodium (Lovenox) 40 mg SC DAILY [facility] PRN Reason: Protocol Last Admin: 07/25/17 08:52 Dose: 40 mg Fluticasone Propionate (Flonase) 2 spr KIRBY HS [facility] Last Admin: 07/24/17 21:35 Dose: 2 spr Methylprednisolone (Solu-Medrol) 40 mg IVP DAILY [facility] Last Admin: 07/25/17 08:53 Dose: 40 mg Nitrofurantoin Macrocrystals (Macrobid) 100 mg PO Q12 [facility] Last Admin: 07/25/17 08:53 Dose: 100 mg Oxycodone/Acetaminophen (Percocet 5/325 Mg Tab) 1 tab PO Q6 PRN PRN Reason: Pain, severe (8-10) Stop: 07/26/17 21:10 Last Admin: 07/25/17 08:59 Dose: 1 tab Sodium Chloride ([place] Nasal [place]) 1 sprays KIRBY Q4 PRN PRN Reason: Nasal congestion Last Admin: 07/24/17 10:39 Dose: 1 spr - Labs Labs: 07/24/17 06:00 07/24/17 06:00 Assessment and Plan (1) Acute on chronic respiratory failure with hypoxia and hypercapnia Status: Acute (2) COPD exacerbation Status: Acute (3) Lymphangioleiomyomatosis Status: Chronic
--- NOTE | 2017-07-25 13:12 | CP.PCM.PN ---
Subjective - Date & Time of Evaluation Date of Evaluation: 07/25/17 Time of Evaluation: 22:22 - Subjective Subjective: Above noted Objective - Vital Signs/Intake and Output Vital Signs (last 24 hours): Temp Pulse Resp BP Pulse Ox 96.4 F L 76 20 111/63 100 07/25/17 08:18 07/25/17 08:18 07/25/17 08:18 07/25/17 08:18 07/25/17 08:18 - Medications Medications: Current Medications Acetazolamide (Diamox Sequels 500 Mg Sr Cap) 500 mg PO DAILY [facility] Last Admin: 07/25/17 08:54 Dose: 500 mg Acetylcysteine (Acetylcysteine 20%) 2 ml INH RBID [facility] Last Admin: 07/25/17 07:09 Dose: 2 ml Albuterol Sulfate (Albuterol 0.083% Inhal [place] (2.5 Mg/3 Ml) Ud) 2.5 mg INH RQ4 PRN PRN Reason: Shortness of Breath Last Admin: 07/25/17 01:40 Dose: 2.5 mg Albuterol/Ipratropium (Duoneb 3 Mg/0.5 Mg (3 Ml) Ud) 3 ml INH RQID [facility] Last Admin: 07/25/17 11:12 Dose: 3 ml Alprazolam (Xanax) 0.5 mg PO BID PRN PRN Reason: Anxiety Last Admin: 07/24/17 18:44 Dose: 0.5 mg Calamine (Calamine Lotion) 1 applic TOP Q6 PRN PRN Reason: Itching / Pruritus Cholecalciferol (Vitamin D) 1,000 iu PO DAILY [facility] Last Admin: 07/25/17 08:53 Dose: 1,000 iu Diphenhydramine HCl (Benadryl) 50 mg PO Q6 PRN PRN Reason: Itching / Pruritus Enoxaparin Sodium (Lovenox) 40 mg SC DAILY [facility] PRN Reason: Protocol Last Admin: 07/25/17 08:52 Dose: 40 mg Fluticasone Propionate (Flonase) 2 spr KIRBY HS [facility] Last Admin: 07/24/17 21:35 Dose: 2 spr Methylprednisolone (Solu-Medrol) 40 mg IVP DAILY [facility] Last Admin: 07/25/17 08:53 Dose: 40 mg Nitrofurantoin Macrocrystals (Macrobid) 100 mg PO Q12 [facility] Last Admin: 07/25/17 08:53 Dose: 100 mg Oxycodone/Acetaminophen (Percocet 5/325 Mg Tab) 1 tab PO Q6 PRN PRN Reason: Pain, severe (8-10) Stop: 07/26/17 21:10 Last Admin: 07/25/17 08:59 Dose: 1 tab Sodium Chloride ([place] Nasal [place]) 1 sprays KIRBY Q4 PRN PRN Reason: Nasal congestion Last Admin: 07/24/17 10:39 Dose: 1 spr - Labs Labs: 07/24/17 06:00 07/24/17 06:00 - Respiratory Exam Respiratory Exam: NORMAL BREATHING PATTERN - Cardiovascular Exam Cardiovascular Exam: REGULAR RHYTHM - GI/Abdominal Exam GI & Abdominal Exam: Normal Bowel Sounds Assessment and Plan - Assessment and Plan (Free Text) Assessment: Deconditioning TCU COPD Lymphangioleiomyomatosis Pulm HTN? Bipap Pulmonary B-agonists Steroids Lung transplant at [place]? appt in Nov UTI Macrodantin Obesity Chronic Pain Cont meds Mood changes No major depression
[2017-07-26] MEDS: Albuterol 0.083% Inhal Sol (2.5 mg/3 mL) UD INH PRN ×3 (00:24→14:15)
[2017-07-26] MEDS: Oxycodone/Acetaminophen 5/325 mg Tab PO PRN ×3 (00:59→16:34)
[2017-07-26] MEDS: Acetylcysteine 20% Inhal Soln (4ml) INH SCH ×2 (07:39→19:36)
[2017-07-26] MEDS: Albuterol-Ipratrop 3 mg / 0.5 (3 ml) UD INH SCH ×4 (07:39→19:35)
[2017-07-26] MEDS: acetaZOLAMIDE 500 mg SR Cap PO SCH (08:41)
[2017-07-26] MEDS: Enoxaparin 40 mg Syringe SC SCH (08:42)
[2017-07-26] MEDS: MethylPREDNISolone 40 mg Vial IVP SCH (09:00)
--- NOTE | 2017-07-26 20:45 | CP.PCM.PN ---
Subjective - Date & Time of Evaluation Date of Evaluation: 07/26/17 Time of Evaluation: 22:22 - Subjective Subjective: Doing well Objective - Vital Signs/Intake and Output Vital Signs (last 24 hours): Temp Pulse Resp BP Pulse Ox 97.5 F L 92 H 20 112/66 93 L 07/26/17 20:30 07/26/17 20:30 07/26/17 20:30 07/26/17 20:30 07/26/17 20:30 - Medications Medications: Current Medications Acetazolamide (Diamox Sequels 500 Mg Sr Cap) 500 mg PO DAILY [facility] Last Admin: 07/26/17 08:41 Dose: 500 mg Acetylcysteine (Acetylcysteine 20%) 2 ml INH RBID [facility] Last Admin: 07/26/17 19:36 Dose: 2 ml Albuterol Sulfate (Albuterol 0.083% Inhal [place] (2.5 Mg/3 Ml) Ud) 2.5 mg INH RQ4 PRN PRN Reason: Shortness of Breath Last Admin: 07/26/17 14:15 Dose: 2.5 mg Albuterol/Ipratropium (Duoneb 3 Mg/0.5 Mg (3 Ml) Ud) 3 ml INH RQID [facility] Last Admin: 07/26/17 19:35 Dose: 3 ml Alprazolam (Xanax) 0.5 mg PO BID PRN PRN Reason: Anxiety Last Admin: 07/26/17 14:27 Dose: 0.5 mg Calamine (Calamine Lotion) 1 applic TOP Q6 PRN PRN Reason: Itching / Pruritus Cholecalciferol (Vitamin D) 1,000 iu PO DAILY [facility] Last Admin: 07/26/17 08:41 Dose: 1,000 iu Diphenhydramine HCl (Benadryl) 50 mg PO Q6 PRN PRN Reason: Itching / Pruritus Enoxaparin Sodium (Lovenox) 40 mg SC DAILY [facility] PRN Reason: Protocol Last Admin: 07/26/17 08:42 Dose: 40 mg Fluticasone Propionate (Flonase) 2 spr KIRBY HS [facility] Last Admin: 07/25/17 21:33 Dose: 2 spr Methylprednisolone (Solu-Medrol) 40 mg IVP DAILY [facility] Last Admin: 07/26/17 09:00 Dose: 40 mg Nitrofurantoin Macrocrystals (Macrobid) 100 mg PO Q12 [facility] Last Admin: 07/26/17 08:42 Dose: 100 mg Oxycodone/Acetaminophen (Percocet 5/325 Mg Tab) 1 tab PO Q6 PRN PRN Reason: Pain, severe (8-10) Stop: 07/26/17 21:10 Last Admin: 07/26/17 16:34 Dose: 1 tab Sodium Chloride ([place] Nasal [place]) 1 sprays KIRBY Q4 PRN PRN Reason: Nasal congestion Last Admin: 07/24/17 10:39 Dose: 1 spr - Labs Labs: 07/24/17 06:00 07/24/17 06:00 - Respiratory Exam Respiratory Exam: NORMAL BREATHING PATTERN - Cardiovascular Exam Cardiovascular Exam: REGULAR RHYTHM - GI/Abdominal Exam GI & Abdominal Exam: Normal Bowel Sounds Assessment and Plan - Assessment and Plan (Free Text) Assessment: Deconditioning TCU COPD Lymphangioleiomyomatosis Pulm HTN? Bipap Pulmonary B-agonists Steroids Lung transplant at [place]? appt in Nov UTI Macrodantin Obesity Chronic Pain Cont meds Mood changes No major depression
[2017-07-27] MEDS: Oxycodone/Acetaminophen 5/325 mg Tab PO PRN ×2 (02:12→17:28)
[2017-07-27] MEDS: Albuterol 0.083% Inhal Sol (2.5 mg/3 mL) UD INH PRN (04:30)
[2017-07-27] MEDS: Albuterol-Ipratrop 3 mg / 0.5 (3 ml) UD INH SCH ×4 (07:18→19:42)
[2017-07-27] MEDS: Acetylcysteine 20% Inhal Soln (4ml) INH SCH ×2 (07:18→19:42)
[2017-07-27] MEDS: acetaZOLAMIDE 500 mg SR Cap PO SCH (09:29)
[2017-07-27] MEDS: MethylPREDNISolone 40 mg Vial IVP SCH (09:30)
[2017-07-27] MEDS: Enoxaparin 40 mg Syringe SC SCH (09:30)
--- NOTE | 2017-07-27 14:23 | CP.PCM.PN ---
Subjective - Date & Time of Evaluation Date of Evaluation: 07/27/17 Time of Evaluation: 22:22 - Subjective Subjective: Continues to do well Objective - Vital Signs/Intake and Output Vital Signs (last 24 hours): Temp Pulse Resp BP Pulse Ox 98.1 F 83 20 131/81 99 07/27/17 07:57 07/27/17 07:57 07/27/17 07:57 07/27/17 07:57 07/27/17 07:57 - Medications Medications: Current Medications Acetazolamide (Diamox Sequels 500 Mg Sr Cap) 500 mg PO DAILY [facility] Last Admin: 07/27/17 09:29 Dose: 500 mg Acetylcysteine (Acetylcysteine 20%) 2 ml INH RBID [facility] Last Admin: 07/27/17 07:18 Dose: 2 ml Albuterol Sulfate (Albuterol 0.083% Inhal [place] (2.5 Mg/3 Ml) Ud) 2.5 mg INH RQ4 PRN PRN Reason: Shortness of Breath Last Admin: 07/27/17 04:30 Dose: 2.5 mg Albuterol/Ipratropium (Duoneb 3 Mg/0.5 Mg (3 Ml) Ud) 3 ml INH RQID [facility] Last Admin: 07/27/17 11:05 Dose: 3 ml Alprazolam (Xanax) 0.5 mg PO BID PRN PRN Reason: Anxiety Last Admin: 07/26/17 14:27 Dose: 0.5 mg Calamine (Calamine Lotion) 1 applic TOP Q6 PRN PRN Reason: Itching / Pruritus Cholecalciferol (Vitamin D) 1,000 iu PO DAILY [facility] Last Admin: 07/27/17 09:29 Dose: 1,000 iu Diphenhydramine HCl (Benadryl) 50 mg PO Q6 PRN PRN Reason: Itching / Pruritus Enoxaparin Sodium (Lovenox) 40 mg SC DAILY [facility] PRN Reason: Protocol Last Admin: 07/27/17 09:30 Dose: 40 mg Fluticasone Propionate (Flonase) 2 spr KIRBY HS [facility] Last Admin: 07/26/17 21:20 Dose: 2 spr Methylprednisolone (Solu-Medrol) 40 mg IVP DAILY [facility] Last Admin: 07/27/17 09:30 Dose: 40 mg Nitrofurantoin Macrocrystals (Macrobid) 100 mg PO Q12 [facility] Last Admin: 07/27/17 09:29 Dose: 100 mg Oxycodone/Acetaminophen (Percocet 5/325 Mg Tab) 1 tab PO Q6 PRN PRN Reason: Pain, moderate (4-7) Stop: 07/29/17 21:22 Last Admin: 07/27/17 02:12 Dose: 1 tab Sodium Chloride ([place] Nasal [place]) 1 sprays KIRBY Q4 PRN PRN Reason: Nasal congestion Last Admin: 07/24/17 10:39 Dose: 1 spr - Labs Labs: 07/24/17 06:00 07/24/17 06:00 - Respiratory Exam Respiratory Exam: Respiratory Distress, NORMAL BREATHING PATTERN - Cardiovascular Exam Cardiovascular Exam: REGULAR RHYTHM - GI/Abdominal Exam GI & Abdominal Exam: Normal Bowel Sounds Assessment and Plan - Assessment and Plan (Free Text) Assessment: Deconditioning TCU COPD Lymphangioleiomyomatosis Pulm HTN? Bipap Pulmonary B-agonists Steroids Lung transplant at [place]? appt in Nov UTI Macrodantin Obesity Chronic Pain Cont meds Mood changes No major depression
--- NOTE | 2017-07-27 14:33 | CP.PCM.PN ---
Subjective - Date & Time of Evaluation Date of Evaluation: 07/27/17 Time of Evaluation: 14:31 - Subjective Subjective: The patient was seen on rounds earlier in the day. She appears to be doing relatively well despite reductions in her dose of corticosteroids. She did note some mild increase in her symptomatology yesterday, but feels improved today. Her pulmonary function study was reviewed and shows severe combined obstructive and restrictive disease. Her repeat CT scan was also performed showing diffuse cystic disease throughout both lungs. Clinically she appears stable with no change in her breath sounds. No audible wheezing. Few scattered sibilant rhonchi. No rales. Dependent edema has almost resolved completely. No cyanosis. We'll switch from parenteral corticosteroid to oral prednisone 30 mg once daily. All other medications will remain unchanged. Objective - Vital Signs/Intake and Output Vital Signs (last 24 hours): Temp Pulse Resp BP Pulse Ox 98.1 F 83 20 131/81 99 07/27/17 07:57 07/27/17 07:57 07/27/17 07:57 07/27/17 07:57 07/27/17 07:57 - Medications Medications: Current Medications Acetazolamide (Diamox Sequels 500 Mg Sr Cap) 500 mg PO DAILY [facility] Last Admin: 07/27/17 09:29 Dose: 500 mg Acetylcysteine (Acetylcysteine 20%) 2 ml INH RBID [facility] Last Admin: 07/27/17 07:18 Dose: 2 ml Albuterol Sulfate (Albuterol 0.083% Inhal [place] (2.5 Mg/3 Ml) Ud) 2.5 mg INH RQ4 PRN PRN Reason: Shortness of Breath Last Admin: 07/27/17 04:30 Dose: 2.5 mg Albuterol/Ipratropium (Duoneb 3 Mg/0.5 Mg (3 Ml) Ud) 3 ml INH RQID [facility] Last Admin: 07/27/17 11:05 Dose: 3 ml Alprazolam (Xanax) 0.5 mg PO BID PRN PRN Reason: Anxiety Last Admin: 07/26/17 14:27 Dose: 0.5 mg Calamine (Calamine Lotion) 1 applic TOP Q6 PRN PRN Reason: Itching / Pruritus Cholecalciferol (Vitamin D) 1,000 iu PO DAILY [facility] Last Admin: 07/27/17 09:29 Dose: 1,000 iu Diphenhydramine HCl (Benadryl) 50 mg PO Q6 PRN PRN Reason: Itching / Pruritus Enoxaparin Sodium (Lovenox) 40 mg SC DAILY [facility] PRN Reason: Protocol Last Admin: 07/27/17 09:30 Dose: 40 mg Fluticasone Propionate (Flonase) 2 spr KIRBY HS [facility] Last Admin: 07/26/17 21:20 Dose: 2 spr Nitrofurantoin Macrocrystals (Macrobid) 100 mg PO Q12 [facility] Last Admin: 07/27/17 09:29 Dose: 100 mg Oxycodone/Acetaminophen (Percocet 5/325 Mg Tab) 1 tab PO Q6 PRN PRN Reason: Pain, moderate (4-7) Stop: 07/29/17 21:22 Last Admin: 07/27/17 02:12 Dose: 1 tab Prednisone (Prednisone Tab) 30 mg PO DAILY [facility] Sodium Chloride (Early Nasal [place]) 1 sprays KIRBY Q4 PRN PRN Reason: Nasal congestion Last Admin: 07/24/17 10:39 Dose: 1 spr - Labs Labs: 07/24/17 06:00 07/24/17 06:00 Assessment and Plan (1) Acute on chronic respiratory failure with hypoxia and hypercapnia Status: Acute (2) COPD exacerbation Status: Acute (3) Lymphangioleiomyomatosis Status: Chronic
[2017-07-28] MEDS: Albuterol 0.083% Inhal Sol (2.5 mg/3 mL) UD INH PRN (00:47)
[2017-07-28] MEDS: Oxycodone/Acetaminophen 5/325 mg Tab PO PRN (07:35)
[2017-07-28] MEDS: Acetylcysteine 20% Inhal Soln (4ml) INH SCH ×2 (07:50→19:05)
[2017-07-28] MEDS: Albuterol-Ipratrop 3 mg / 0.5 (3 ml) UD INH SCH ×4 (07:50→19:05)
[2017-07-28] MEDS: acetaZOLAMIDE 500 mg SR Cap PO SCH (08:45)
[2017-07-28] MEDS: Enoxaparin 40 mg Syringe SC SCH (08:46)
--- NOTE | 2017-07-28 12:00 | CP.PCM.PN ---
Subjective - Date & Time of Evaluation Date of Evaluation: 07/28/17 Time of Evaluation: 11:58 - Subjective Subjective: Doing well on current regimen. Started on PO prednisone this morning w/o incident. Respiratory status remains unchanged. PFT not yet officially reported. Has had decrease in TCO2 on acetazolamide 500MG once daily. Will continue present regimen, Reduce prednisone by 5MG every third day. Ready for discharge to home when released by PMD. New meds: Diamox 500MG POOD, Prednisone 30MG reduced by 5MG Q3D, Mucomyst 2ml via neb BID, Duoneb QID. Objective - Vital Signs/Intake and Output Vital Signs (last 24 hours): Temp Pulse Resp BP Pulse Ox 97.2 F L 83 20 132/78 100 07/28/17 07:57 07/28/17 07:57 07/28/17 07:57 07/28/17 07:57 07/28/17 07:57 - Medications Medications: Current Medications Acetazolamide (Diamox Sequels 500 Mg Sr Cap) 500 mg PO DAILY [facility] Last Admin: 07/28/17 08:45 Dose: 500 mg Acetylcysteine (Acetylcysteine 20%) 2 ml INH RBID [facility] Last Admin: 07/28/17 07:50 Dose: 2 ml Albuterol Sulfate (Albuterol 0.083% Inhal Caridad (2.5 Mg/3 Ml) Ud) 2.5 mg INH RQ4 PRN PRN Reason: Shortness of Breath Last Admin: 07/28/17 00:47 Dose: 2.5 mg Albuterol/Ipratropium (Duoneb 3 Mg/0.5 Mg (3 Ml) Ud) 3 ml INH RQID [facility] Last Admin: 07/28/17 11:17 Dose: 3 ml Alprazolam (Xanax) 0.5 mg PO BID PRN PRN Reason: Anxiety Last Admin: 07/27/17 22:50 Dose: 0.5 mg Calamine (Calamine Lotion) 1 applic TOP Q6 PRN PRN Reason: Itching / Pruritus Cholecalciferol (Vitamin D) 1,000 iu PO DAILY [facility] Last Admin: 07/28/17 08:45 Dose: 1,000 iu Diphenhydramine HCl (Benadryl) 50 mg PO Q6 PRN PRN Reason: Itching / Pruritus Enoxaparin Sodium (Lovenox) 40 mg SC DAILY [facility] PRN Reason: Protocol Last Admin: 07/28/17 08:46 Dose: 40 mg Fluticasone Propionate (Flonase) 2 spr KIRBY HS [facility] Last Admin: 07/27/17 21:16 Dose: 2 spr Nitrofurantoin Macrocrystals (Macrobid) 100 mg PO Q12 [facility] Last Admin: 07/28/17 08:44 Dose: 100 mg Oxycodone/Acetaminophen (Percocet 5/325 Mg Tab) 1 tab PO Q6 PRN PRN Reason: Pain, moderate (4-7) Stop: 07/29/17 21:22 Last Admin: 07/28/17 07:35 Dose: 1 tab Prednisone (Prednisone Tab) 30 mg PO DAILY [facility] Last Admin: 07/28/17 08:45 Dose: 30 mg Sodium Chloride ([place] Nasal [place]) 1 sprays KIRBY Q4 PRN PRN Reason: Nasal congestion Last Admin: 07/24/17 10:39 Dose: 1 spr - Labs Labs: 07/24/17 06:00 07/24/17 06:00 Assessment and Plan (1) Acute on chronic respiratory failure with hypoxia and hypercapnia Status: Acute (2) COPD exacerbation Status: Acute (3) Lymphangioleiomyomatosis Status: Chronic
[2017-07-28] MEDS ORDERED: Nasal Spray(Ocean spray) NAS SCH (13:00)
--- NOTE | 2017-07-28 15:33 | CP.PCM.PN ---
Subjective - Date & Time of Evaluation Date of Evaluation: 07/28/17 Time of Evaluation: 22:22 - Subjective Subjective: Above noted Objective - Vital Signs/Intake and Output Vital Signs (last 24 hours): Temp Pulse Resp BP Pulse Ox 97.2 F L 83 20 132/78 100 07/28/17 07:57 07/28/17 07:57 07/28/17 07:57 07/28/17 07:57 07/28/17 07:57 - Medications Medications: Current Medications Acetazolamide (Diamox Sequels 500 Mg Sr Cap) 500 mg PO DAILY [facility] Last Admin: 07/28/17 08:45 Dose: 500 mg Acetylcysteine (Acetylcysteine 20%) 2 ml INH RBID [facility] Last Admin: 07/28/17 07:50 Dose: 2 ml Albuterol Sulfate (Albuterol 0.083% Inhal [place] (2.5 Mg/3 Ml) Ud) 2.5 mg INH RQ4 PRN PRN Reason: Shortness of Breath Last Admin: 07/28/17 00:47 Dose: 2.5 mg Albuterol/Ipratropium (Duoneb 3 Mg/0.5 Mg (3 Ml) Ud) 3 ml INH RQID [facility] Last Admin: 07/28/17 15:23 Dose: 3 ml Alprazolam (Xanax) 0.5 mg PO BID PRN PRN Reason: Anxiety Last Admin: 07/27/17 22:50 Dose: 0.5 mg Calamine (Calamine Lotion) 1 applic TOP Q6 PRN PRN Reason: Itching / Pruritus Cholecalciferol (Vitamin D) 1,000 iu PO DAILY [facility] Last Admin: 07/28/17 08:45 Dose: 1,000 iu Diphenhydramine HCl (Benadryl) 50 mg PO Q6 PRN PRN Reason: Itching / Pruritus Enoxaparin Sodium (Lovenox) 40 mg SC DAILY [facility] PRN Reason: Protocol Last Admin: 07/28/17 08:46 Dose: 40 mg Fluticasone Propionate (Flonase) 2 spr KIRBY HS [facility] Last Admin: 07/27/17 21:16 Dose: 2 spr Oxycodone/Acetaminophen (Percocet 5/325 Mg Tab) 1 tab PO Q6 PRN PRN Reason: Pain, moderate (4-7) Stop: 07/29/17 21:22 Last Admin: 07/28/17 07:35 Dose: 1 tab Prednisone (Prednisone Tab) 30 mg PO DAILY [facility] Last Admin: 07/28/17 08:45 Dose: 30 mg Sodium Chloride ([place] Baby Saline 30 Ml) 1 drop KIRBY QID [facility]ISSE - Labs Labs: 07/24/17 06:00 07/24/17 06:00 - Respiratory Exam Respiratory Exam: NORMAL BREATHING PATTERN - Cardiovascular Exam Cardiovascular Exam: REGULAR RHYTHM - GI/Abdominal Exam GI & Abdominal Exam: Normal Bowel Sounds Assessment and Plan - Assessment and Plan (Free Text) Assessment: Deconditioning TCU COPD Lymphangioleiomyomatosis Pulm HTN? Bipap Pulmonary B-agonists Steroids Lung transplant at [place]? appt in Nov UTI Macrodantin Obesity Chronic Pain Cont meds Mood changes No major depression
[2017-07-28] MEDS: AYR BABY SALINE NOSE DROP NAS SCH ×2 (17:17→21:12)
[2017-07-29] MEDS: Albuterol 0.083% Inhal Sol (2.5 mg/3 mL) UD INH PRN ×2 (00:44→05:13)
[2017-07-29] MEDS: Acetylcysteine 20% Inhal Soln (4ml) INH SCH (07:44)
[2017-07-29] MEDS: Albuterol-Ipratrop 3 mg / 0.5 (3 ml) UD INH SCH ×2 (07:45→11:30)
[2017-07-29] MEDS: Oxycodone/Acetaminophen 5/325 mg Tab PO PRN ×2 (09:06→14:06)
[2017-07-29] MEDS: Enoxaparin 40 mg Syringe SC SCH (09:08)
[2017-07-29] MEDS: AYR BABY SALINE NOSE DROP NAS SCH ×2 (09:08→12:22)
[2017-07-29] MEDS: acetaZOLAMIDE 500 mg SR Cap PO SCH (09:08)
--- NOTE | 2017-07-29 11:35 | CP.PCM.PN ---
Subjective - Date & Time of Evaluation Date of Evaluation: 07/29/17 Time of Evaluation: 11:34 - Subjective Subjective: The patient was seen on rounds in transitional care. She is presently standing at the bedside in no acute distress. She is noted to be dyspneic with simple conversation. She is prepared for discharge and all new medications have had prescriptions made out for them with instructions. She will followup with myself as an outpatient and is scheduled for a lung transplant evaluation at [facility] in 2-3 weeks. Prednisone will continue at 30 mg per day decreasing by 5 mg every third day. Objective - Vital Signs/Intake and Output Vital Signs (last 24 hours): Temp Pulse Resp BP Pulse Ox 97.5 F L 91 H 20 115/74 90 L 07/29/17 08:07 07/29/17 08:07 07/29/17 08:07 07/29/17 08:07 07/29/17 08:07 - Medications Medications: Current Medications Acetazolamide (Diamox Sequels 500 Mg Sr Cap) 500 mg PO DAILY [facility] Last Admin: 07/29/17 09:08 Dose: 500 mg Acetylcysteine (Acetylcysteine 20%) 2 ml INH RBID [facility] Last Admin: 07/29/17 07:44 Dose: 2 ml Albuterol Sulfate (Albuterol 0.083% Inhal Caridad (2.5 Mg/3 Ml) Ud) 2.5 mg INH RQ4 PRN PRN Reason: Shortness of Breath Last Admin: 07/29/17 05:13 Dose: 2.5 mg Albuterol/Ipratropium (Duoneb 3 Mg/0.5 Mg (3 Ml) Ud) 3 ml INH RQID [facility] Last Admin: 07/29/17 11:30 Dose: 3 ml Alprazolam (Xanax) 0.5 mg PO BID PRN PRN Reason: Anxiety Last Admin: 07/29/17 01:56 Dose: 0.5 mg Calamine (Calamine Lotion) 1 applic TOP Q6 PRN PRN Reason: Itching / Pruritus Cholecalciferol (Vitamin D) 1,000 iu PO DAILY [facility] Last Admin: 07/29/17 09:09 Dose: 1,000 iu Diphenhydramine HCl (Benadryl) 50 mg PO Q6 PRN PRN Reason: Itching / Pruritus Enoxaparin Sodium (Lovenox) 40 mg SC DAILY [facility] PRN Reason: Protocol Last Admin: 07/29/17 09:08 Dose: 40 mg Fluticasone Propionate (Flonase) 2 spr KIRBY HS [facility] Last Admin: 07/28/17 21:13 Dose: 2 spr Oxycodone/Acetaminophen (Percocet 5/325 Mg Tab) 1 tab PO Q6 PRN PRN Reason: Pain, moderate (4-7) Stop: 07/29/17 21:22 Last Admin: 07/29/17 09:06 Dose: 1 tab Prednisone (Prednisone Tab) 30 mg PO DAILY [facility] Last Admin: 07/29/17 09:09 Dose: 30 mg Sodium Chloride ([place] Baby Saline 30 Ml) 1 drop KIRBY QID [facility] Last Admin: 07/29/17 09:08 Dose: 1 spr - Labs Labs: 07/24/17 06:00 07/24/17 06:00 Assessment and Plan (1) Acute on chronic respiratory failure with hypoxia and hypercapnia Status: Acute (2) COPD exacerbation Status: Acute (3) Lymphangioleiomyomatosis Status: Chronic
[2017-07-29 16:16] VITALS: BP 143/89; PULSE 105; TEMP 98.2; O2SAT 92
--- NOTE | 2017-07-29 18:33 | CP.PCM.PN ---
Subjective - Date & Time of Evaluation Date of Evaluation: 07/29/17 Time of Evaluation: 22:22 - Subjective Subjective: Above noted Objective - Vital Signs/Intake and Output Vital Signs (last 24 hours): Temp Pulse Resp BP Pulse Ox 98.2 F 105 H 20 143/89 92 L 07/29/17 16:15 07/29/17 16:15 07/29/17 16:15 07/29/17 16:15 07/29/17 16:15 - Labs Labs: 07/24/17 06:00 07/24/17 06:00 - Respiratory Exam Respiratory Exam: NORMAL BREATHING PATTERN - Cardiovascular Exam Cardiovascular Exam: REGULAR RHYTHM - GI/Abdominal Exam GI & Abdominal Exam: Normal Bowel Sounds Assessment and Plan - Assessment and Plan (Free Text) Assessment: Deconditioning TCU COPD Lymphangioleiomyomatosis Pulm HTN? Bipap Pulmonary B-agonists Steroids Lung transplant at [place]? appt in Nov UTI Macrodantin Obesity Chronic Pain Cont meds Mood changes No major depression
== END 2017-07-29 16:00 | disposition home or self-care (01) | DRG 945 ==
LOC: H.TCU 16:39
PROVIDERS: ADMIT Family Medicine Geriatric Medicine; ATTEND Family Medicine Geriatric Medicine
PROC: F08Z1FZ Dressing Techniques Treatment using Assistive, Adaptive, Supportive or Protective Equipment (ICD-10-PCS; principal; 2017-07-20)
PROC: F08Z0FZ Bathing/Showering Techniques Treatment using Assistive, Adaptive, Supportive or Protective Equipment (ICD-10-PCS; 2017-07-20)
PROC: F07Z9FZ Gait Training/Functional Ambulation Treatment using Assistive, Adaptive, Supportive or Protective Equipment (ICD-10-PCS; 2017-07-20)
PROC: F07L6ZZ Therapeutic Exercise Treatment of Musculoskeletal System - Lower Back / Lower Extremity (ICD-10-PCS; 2017-07-20)
PROC: 5A09557 Assistance with Respiratory Ventilation, Greater than 96 Consecutive Hours, Continuous Positive Airway Pressure (ICD-10-PCS; 2017-07-20)
DX: R53.81 Other malaise (principal); J84.81 Lymphangioleiomyomatosis; Z99.81 Dependence on supplemental oxygen; N39.0 Urinary tract infection, site not specified; J44.9 Chronic obstructive pulmonary disease, unspecified; E66.9 Obesity, unspecified; Z68.31 Body mass index [BMI] 31.0-31.9, adult; G89.29 Other chronic pain; Z88.2 Allergy status to sulfonamides; Z87.891 Personal history of nicotine dependence

== ENCOUNTER 2017-08-23 06:51 | Emergency (ER) | payer MEDICARE, MEDICAID ==
[2017-08-23 07:02] VITALS: BMI 30.2
[2017-08-23 07:05] VITALS: RESP 18; TEMP 97.8
[2017-08-23] MEDS ORDERED: Sodium Chloride 0.9% 1,000 ML IV STA (07:09)
--- NOTE | 2017-08-23 07:12 | ED PDOC ---
HPI:Nausea, Vomiting, Diarrhea Time Seen by Provider: 08/23/17 07:05 Chief Complaint (Nursing): Shortness Of Breath History Per: Patient Onset/Duration Of Symptoms: Days (2) Current Symptoms Are (Timing): Still Present Severity: Mild Pain Scale Rating Of: 3 Quality Of Discomfort: Burning Associated Symptoms: Nausea, Vomiting, Back Pain. denies: Fever, Diarrhea Exacerbating Factors: None Alleviating Factors: None Additional Complaint(s): Epigastric abd pain assoc with nausea and vomiting x 2 days. Denies fever or diarrhea. Recently tapered off prednisone for COPD. Past Medical History Vital Signs: Last Vital Signs Temp 97.8 F 08/23/17 07:02 Pulse 109 H 08/23/17 07:02 Resp 18 08/23/17 07:02 BP 123/84 08/23/17 07:02 Pulse Ox 96 08/23/17 07:02 - Medical History PMH: Anxiety, Asthma, Back Problems, COPD, Pneumothorax Denies: Arthritis, CHF, HIV, HTN, Hypercholesterolemia, Hypothyroidism, Chronic Kidney Disease, Rheumatoid Arthritis - Family History Family History: States: Unknown Family Hx - Home Medications Home Medications: Ambulatory Orders Medication Instructions Recorded Alprazolam [Xanax] 0.5 mg PO BID PRN 04/17/16 Cholecalciferol [Vitamin D 1000 IU] 1,000 iu PO DAILY #30 tab 09/22/16 Fluticasone Propionate [Flonase] 2 spr KIRBY HS #1 bottle 09/22/16 Pantoprazole [Protonix EC Tab] 40 mg PO DAILY #30 ect 09/22/16 Sodium Chloride Nasal [place] [[place] 1 sprays KIRBY Q4 PRN #1 bottle 09/22/16 Nasal [place]] Calamine/Zinc Oxide [Calamine 1 applic TOP Q6 PRN bottle 05/25/17 Lotion] DiphenhydrAMINE [Benadryl] 50 mg PO Q6 PRN cap 05/25/17 Acetylcysteine 20% 2 ml INH RBID vial 07/20/17 Albuterol 0.083% [Albuterol 0.083% 2.5 mg INH RQ4 PRN neb 07/20/17 Inhal Caridad (2.5 mg/3 ml) UD] Albuterol/Ipratropium [Duoneb 3 3 ml INH RQID neb 07/20/17 mg/0.5 mg (3 ml) UD] acetaZOLAMIDE [Diamox Sequels 500 500 mg PO DAILY cer 07/20/17 mg SR Cap] oxyCODONE/Acetaminophen [Percocet 1 tab PO Q6 PRN tab 07/20/17 5/325 mg Tab] predniSONE [predniSONE Tab] 30 mg PO DAILY 07/29/17 Famotidine [Pepcid] 20 mg PO Q12 #20 tab 08/23/17 Ondansetron [Zofran] 4 mg PO Q8H #10 tab 08/23/17 - Allergies Allergies/Adverse Reactions: Allergies Allergy/AdvReac Type Severity Reaction Status Date / Time Sulfa (Sulfonamide Allergy RASH Verified 07/20/17 16:39 Antibiotics) Review of Systems ROS Statement: Except As Marked, All Systems Reviewed And Found Negative Gastrointestinal: Positive for: Nausea, Vomiting, Abdominal Pain Physical Exam - Reviewed Nursing Documentation Reviewed: Yes Vital Signs Reviewed: Yes - Physical Exam Appears: Positive for: Non-toxic, No Acute Distress Head Exam: Positive for: ATRAUMATIC, NORMAL INSPECTION, NORMOCEPHALIC Skin: Positive for: Normal Color, Warm, DRY Eye Exam: Positive for: EOMI, Normal appearance, PERRL ENT: Positive for: Other (Mucous membranes dry. No nasal swelling or deformity) Neck: Positive for: Normal, Painless ROM Cardiovascular/Chest: Positive for: Regular Rate, Rhythm Respiratory: Positive for: Decreased Breath Sounds. Negative for: Wheezing, Respiratory Distress Gastrointestinal/Abdominal: Positive for: Normal Exam, Bowel Sounds, Soft. Negative for: Tenderness Back: Positive for: Normal Inspection Extremity: Positive for: Normal ROM Neurologic/Psych: Positive for: Alert, Oriented - Laboratory Results Result Diagrams: 08/23/17 07:28 08/23/17 07:28 - ECG O2 Sat by Pulse Oximetry: 96 - Progress Re-evaluation Time: 09:56 Condition: Improved Disposition - Clinical Impression Clinical Impression: Gastritis - Patient ED Disposition Is Patient to be Admitted: No Counseled Patient/Family Regarding: Studies Performed, Diagnosis, Need For Followup, Rx Given - Disposition Referrals: Randy Interiano MD [Staff Provider] - Disposition: Routine/Home Disposition Time: 09:56 Condition: FAIR Prescriptions: Famotidine [Pepcid] 20 mg PO Q12 #20 tab Ondansetron [Zofran] 4 mg PO Q8H #10 tab Instructions: Gastritis (ED) Forms: [employer] (Arabic)
[2017-08-23 07:39] LABS: BASO # 0.1 K/uL (0.0-0.2); BASO % 0.9 % (0.0-2.0); EOS # 0.1 K/uL (0.0-0.7); EOS % 1.3 % (0.0-4.0); LYMPH # 1.6 K/uL (1.0-4.3); LYMPH % 17.4 % (20.0-40.0); MEAN CELL VOLUME 90.8 fl (81.0-99.0); MEAN CORPUSCULAR HEMOGLOBIN 29.4 pg (27.0-31.0); MEAN CORPUSCULAR HGB CONC 32.4 g/dL (33.0-37.0); MEAN PLATELET VOLUME 7.5 fl (7.2-11.7); MONO % 10.9 % (0.0-10.0); NEUT # 6.2 K/uL (1.8-7.0); NEUT % 69.5 % (50.0-75.0); RED CELL DISTRIBUTION WIDTH 14.4 % (11.5-14.5); WHITE BLOOD COUNT 8.9 K/uL (4.8-10.8)
[2017-08-23 07:49] LABS: ALB/GLOB RATIO 1.3 (1.0-2.1); ALKALINE PHOSPHATASE 63 U/L (38-126); ALT/SGPT 40 U/L (9-52); AST/SGOT 39 U/L (14-36); BILIRUBIN,TOTAL 0.6 mg/dl (0.2-1.3); BLOOD UREA NITROGEN 13 mg/dl (7-17); CALCIUM 8.9 mg/dL (8.4-10.2); CARBON DIOXIDE 28 mmol/L (22-30); CHLORIDE 109 mmol/L (98-107); GFR AFRICAN-AMERICAN > 60; GLUCOSE,RANDOM 129 mg/dL (65-105); SODIUM 144 mmol/l (132-148); TOTAL PROTEIN 7.1 G/DL (6.3-8.2)
[2017-08-23 07:52] LABS: POTASSIUM 4.5 MMOL/L (3.6-5.0)
[2017-08-23] MEDS ORDERED: Albuterol-Ipratrop 3 mg / 0.5 (3 ml) UD IH STA (10:49)
--- NOTE | 2017-08-23 11:07 | RAD ---
HISTORY: COMPARISON: 07/16/2017. TECHNIQUE: Chest PA and lateral FINDINGS: LINES AND TUBES: None. LUNG AND PLEURA: The lungs are hyperinflated and there is peribronchial thickening with chronic changes in both lungs. No focal consolidation. HEART AND MEDIASTINUM: The heart is not enlarged. The hilar and mediastinal contours are within normal limits. SKELETAL STRUCTURES: The bony structures are within normal limits for the patient's age. VISUALIZED UPPER ABDOMEN: Normal. OTHER FINDINGS: None. IMPRESSION: No active pulmonary disease. COPD.
[2017-08-23] MEDS ORDERED: Albuterol-Ipratrop 3 mg / 0.5 (3 ml) UD ONE (11:17)
[2017-08-23 11:29] VITALS: BP 127/80; PULSE 100; O2SAT 100
--- NOTE | 2017-08-23 11:54 | RAD ---
PROCEDURE: Radiographs of Nasal Bones HISTORY: trauma COMPARISON: None available. TECHNIQUE: Frontal and lateral radiographs of the nasal bones. FINDINGS: No fracture of nasal bones visualized. No destructive lesion. IMPRESSION: No nasal bone fracture visualized.
== END 2017-08-23 11:28 | disposition home or self-care (01) ==
LOC: H.ER 06:51
DX: K29.70 Gastritis, unspecified, without bleeding (principal); J44.9 Chronic obstructive pulmonary disease, unspecified; F41.9 Anxiety disorder, unspecified
CPT/HCPCS: 70160; 71020; 80053; 85025; 94640; 96361; 96374; 96375; 99283; J2405; J7040

== ENCOUNTER 2018-02-20 15:21 | Inpatient (IN) | payer MEDICARE, MEDICAID ==
[2018-02-20 15:21] VITALS: BMI 30.2
[2018-02-20] MEDS ORDERED: Albuterol-Ipratrop 3 mg / 0.5 (3 ml) UD INH STA ×2 (15:46→16:48)
[2018-02-20] MEDS ORDERED: Azithromycin 500 MG in Sodium Chloride 0.9% 250 ML IV STA (15:51)
--- NOTE | 2018-02-20 15:53 | ED PDOC ---
HPI: SOB/CHF/COPD Time Seen by Provider: 02/20/18 15:41 Chief Complaint (Nursing): Shortness Of Breath Chief Complaint (Provider): Shortness of breath History Per: Patient History/Exam Limitations: no limitations Onset/Duration Of Symptoms: Days ( x 2) Current Symptoms Are (Timing): Still Present Current Respiratory Medications: See Home Med List Associated Symptoms: denies: Productive Cough Additional History Per: Patient Additional Complaint(s): 57yo female, with history of COPD, JIMENEZ, on home O2 and using Nebublizer treatments Q6 hours, presents to ER with complaints of shortness of breath for the past 2 days. Patient reports associated non-productive cough as well. She denies any fever, chills, chest pain and offers no other medical complaints. PMD: Dr. Meza Past Medical History Reviewed: Historical Data, Nursing Documentation, Vital Signs Vital Signs: Last Vital Signs Temp 100.4 F H 02/20/18 15:24 Pulse 102 H 02/20/18 15:24 Resp 24 02/20/18 15:24 BP 159/103 H 02/20/18 15:24 Pulse Ox 98 02/20/18 15:56 - Medical History PMH: Anxiety, Asthma, Back Problems, COPD, Pneumothorax Denies: Arthritis, CHF, HIV, HTN, Hypercholesterolemia, Hypothyroidism, Chronic Kidney Disease, Rheumatoid Arthritis - Surgical History Surgical History: No Surg Hx - Family History Family History: States: No Known Family Hx, Unknown Family Hx - Home Medications Home Medications: Ambulatory Orders Medication Instructions Recorded Alprazolam [Xanax] 0.5 mg PO BID PRN 04/17/16 Cholecalciferol [Vitamin D 1000 IU] 1,000 iu PO DAILY #30 tab 09/22/16 Fluticasone Propionate [Flonase] 2 spr KIRBY HS #1 bottle 09/22/16 Pantoprazole [Protonix EC Tab] 40 mg PO DAILY #30 ect 09/22/16 Sodium Chloride Nasal [place] [[place] 1 sprays KIRBY Q4 PRN #1 bottle 09/22/16 Nasal [place]] Calamine/Zinc Oxide [Calamine 1 applic TOP Q6 PRN bottle 05/25/17 Lotion] DiphenhydrAMINE [Benadryl] 50 mg PO Q6 PRN cap 05/25/17 Acetylcysteine 20% 2 ml INH RBID vial 07/20/17 Albuterol 0.083% [Albuterol 0.083% 2.5 mg INH RQ4 PRN neb 07/20/17 Inhal [place] (2.5 mg/3 ml) UD] Albuterol/Ipratropium [Duoneb 3 3 ml INH RQID neb 07/20/17 mg/0.5 mg (3 ml) UD] acetaZOLAMIDE [Diamox Sequels 500 500 mg PO DAILY cer 07/20/17 mg SR Cap] oxyCODONE/Acetaminophen [Percocet 1 tab PO Q6 PRN tab 07/20/17 5/325 mg Tab] predniSONE [predniSONE Tab] 30 mg PO DAILY 07/29/17 Famotidine [Pepcid] 20 mg PO Q12 #20 tab 08/23/17 Ondansetron [Zofran] 4 mg PO Q8H #10 tab 08/23/17 - Allergies Allergies/Adverse Reactions: Allergies Allergy/AdvReac Type Severity Reaction Status Date / Time Sulfa (Sulfonamide Allergy RASH Verified 02/20/18 15:23 Antibiotics) Review of Systems ROS Statement: Except As Marked, All Systems Reviewed And Found Negative Cardiovascular: Negative for: Chest Pain Respiratory: Positive for: Cough, Shortness of Breath. Negative for: Sputum Physical Exam - Reviewed Nursing Documentation Reviewed: Yes Vital Signs Reviewed: Yes - Physical Exam Appears: Positive for: Non-toxic Head Exam: Positive for: ATRAUMATIC, NORMAL INSPECTION, NORMOCEPHALIC Skin: Positive for: Normal Color Eye Exam: Positive for: EOMI, PERRL Neck: Positive for: Normal, Supple Cardiovascular/Chest: Positive for: Regular Rate, Rhythm Respiratory: Positive for: Decreased Breath Sounds (bilaterally), Other ( speaking full sentences) Gastrointestinal/Abdominal: Positive for: Normal Exam, Soft. Negative for: Tenderness Back: Positive for: Normal Inspection Extremity: Positive for: Normal ROM. Negative for: Pedal Edema Neurologic/Psych: Positive for: Alert, Oriented. Negative for: Motor/Sensory Deficits - ECG O2 Sat by Pulse Oximetry: 98 (O2 via NC) Pulse Ox Interpretation: Normal Medical Decision Making Medical Decision Making: Impression: COPD exacerbation, pneumonia Plan: -- Labs -- EKG -- CXR -- Rapid flu -- Urinalysis -- Tylenol 650mg PO -- Duoneb 3ml INH -- IV Rocephin -- IV Zithromax -- Solumedrol 125mg IVP Time: 1605 CXR FINDINGS: LUNGS: Severe centrilobular and panlobular emphysematous changes upper lobe predominance with hyperinflation. . Bullous changes are also present though less well seen compared prior exam. PLEURA: No significant pleural effusion identified, no pneumothorax apparent. CARDIOVASCULAR: Normal. OSSEOUS STRUCTURES: No significant abnormalities. VISUALIZED UPPER ABDOMEN: Normal. OTHER FINDINGS: None. Severe emphysematous changes IMPRESSION: Severe bullous centrilobular and panlobular emphysematous changes with upper lobe more severely affected than the lower lobes. Time: 1700 Patient to be signed out to Dr. Mullen pending labs and reevaluation. Scribe Attestation: Documented by Esthela Garner acting as a scribe for Whitney Lam MD. Provider Scribe Attestation: All medical record entries made by the Scribe were at my direction and personally dictated by me. I have reviewed the chart and agree that the record accurately reflects my personal performance of the history, physical exam, medical decision making, and the department course for this patient. I have also personally directed, reviewed, and agree with the discharge instructions and disposition. Disposition - Patient ED Disposition Is Patient to be Admitted: Transfer of Care - Disposition Disposition: Transfer of Care Disposition Time: 17:00 Forms: [employer] (Upper Sorbian) Patient Signed Over To: Elkin Mullen III Handoff Comments: Pending labs and reevaluation
--- NOTE | 2018-02-20 16:18 | RAD ---
HISTORY: SOB COMPARISON: Comparison made with chest radiograph dated 08/23/[address] scan chest dated 07/25/2017 FINDINGS: LUNGS: Severe centrilobular and panlobular emphysematous changes upper lobe predominance with hyperinflation. . Bullous changes are also present though less well seen compared prior exam. PLEURA: No significant pleural effusion identified, no pneumothorax apparent. CARDIOVASCULAR: Normal. OSSEOUS STRUCTURES: No significant abnormalities. VISUALIZED UPPER ABDOMEN: Normal. OTHER FINDINGS: None. Severe emphysematous changes IMPRESSION: Severe bullous centrilobular and panlobular emphysematous changes with upper lobe more severely affected than the lower lobes.
[2018-02-20] MEDS ORDERED: cefTRIAXone (Rocephin) 1 gm Inj ONE (16:39)
[2018-02-20] MEDS ORDERED: Albuterol-Ipratrop 3 mg / 0.5 (3 ml) UD ONE ×4 (16:40→20:31)
[2018-02-20 17:20] LABS: ALB/GLOB RATIO 1.3 (1.0-2.1); ALBUMIN 3.9 g/dL (3.5-5.0); ALT/SGPT 73 U/L (9-52); AST/SGOT 36 U/L (14-36); BLOOD UREA NITROGEN 15 mg/dl (7-17); CALCIUM 9.6 mg/dL (8.4-10.2); GFR AFRICAN-AMERICAN > 60; GFR NON-AFRICAN AMERICAN > 60
--- NOTE | 2018-02-20 17:30 | ED PDOC ---
- Laboratory Results Result Diagrams: 02/20/18 17:30 02/20/18 17:05 - ECG O2 Sat by Pulse Oximetry: 98 (O2 via NC) Medical Decision Making Medical Decision Making: Time: 17:00 Patient is signed over to me by Dr. Whitney Lam pending labs and reevaluation. Labs reviewed unremarkable flu neg WBC normal Abx prior initiated and cultures obtained Dr Laisha merrill awaiting call back endorsed Dr Kramer 715pm Scribe Attestation: Documented by Desmond Ernst acting as a scribe for Elkin Mullen MD. Scribe Attestation: All medical record entries made by the Scribe were at my direction and personally dictated by me. I have reviewed the chart and agree that the record accurately reflects my personal performance of the history, physical exam, medical decision making, and the department course for this patient. I have also personally directed, reviewed, and agree with the discharge instructions and disposition. Disposition - Clinical Impression Clinical Impression: Respiratory distress - POA Present On Arrival: None - Disposition Disposition: Transfer of Care Disposition Time: 19:18 Forms: [employer] (Pashto) Patient Signed Over To: Remy Kramer
[2018-02-20 17:49] LABS: ABG ALLEN TEST YES; ARTERIAL BLOOD GAS HCO3 30.1 mmol/L (21-28); ARTERIAL BLOOD GAS PCO2 75 mm/Hg (35-45); ARTERIAL BLOOD GAS PH 7.31 (7.35-7.45); ARTERIAL BLOOD GAS PO2 26 mm/Hg (80-100); ARTERIAL BLOOD GAS TCO2 40.1 mmol/L (22-28)
[2018-02-20 17:52] LABS: BASO % 0.7 % (0.0-2.0); EOS # 0.1 K/uL (0.0-0.7); EOS % 0.8 % (0.0-4.0); HEMOGLOBIN 13.7 g/dL (12.0-16.0); LYMPH # 1.5 K/uL (1.0-4.3); LYMPH % 20.4 % (20.0-40.0); MEAN CELL VOLUME 90.2 fl (81.0-99.0); MEAN CORPUSCULAR HEMOGLOBIN 30.1 pg (27.0-31.0); MEAN CORPUSCULAR HGB CONC 33.4 g/dL (33.0-37.0); MEAN PLATELET VOLUME 7.7 fl (7.2-11.7); MONO # 0.6 K/uL (0.0-0.8); MONO % 8.4 % (0.0-10.0); NEUT # 5.2 K/uL (1.8-7.0); NEUT % 69.7 % (50.0-75.0); RBC 4.55 Mil/uL (3.80-5.20); RED CELL DISTRIBUTION WIDTH 13.8 % (11.5-14.5); WHITE BLOOD COUNT 7.5 K/uL (4.8-10.8)
[2018-02-20 18:06] LABS: PARTIAL THROMBOPLASTIN TIME 28.5 Seconds (25.6-37.1)
--- NOTE | 2018-02-20 19:21 | ED PDOC ---
- Laboratory Results Result Diagrams: 02/20/18 17:30 02/20/18 17:05 - ECG O2 Sat by Pulse Oximetry: 98 (O2 via NC) Medical Decision Making Medical Decision Making: Time: 19:00 Patient is signed over to me by Dr. Elkin Mullen pending call back from Dr. Interiano and admission. Scribe Attestation: Documented by Desmond Ernst acting as a scribe for Remy Kramer MD. Scribe Attestation: All medical record entries made by the Scribe were at my direction and personally dictated by me. I have reviewed the chart and agree that the record accurately reflects my personal performance of the history, physical exam, medical decision making, and the department course for this patient. I have also personally directed, reviewed, and agree with the discharge instructions and disposition. Disposition - Clinical Impression Clinical Impression: Respiratory distress - Disposition Forms: [employer] (Guyanese)
--- NOTE | 2018-02-20 19:27 | CP.PCM.HP ---
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 SOB has been getting progressively worse over the last week. CXR shows severe bullous centrilobular and panlobular emphysematous changes with upper lobe more severely affected than the lower lobes. Patient to be placed on observation for presumed pneumonia, Ceftriaxone, Azithromycin, bronchodilators. Procalcitonin pending. HD stable at this time, NAD. ROS: per HPI all other systems reviewed and negative PMD: Dr. Interiano Present on Admission - Present on Admission Any Indicators Present on Admission: No Past Patient History - Infectious Disease Hx of Infectious Diseases: None - Past Medical History & Family History Past Medical History?: Yes - Past Social History Smoking Status: Former Smoker - CARDIAC Hx Congestive Heart Failure: No Hx Hypercholesterolemia: No Hx Hypertension: No - PULMONARY Hx Asthma: Yes Hx Chronic Obstructive Pulmonary Disease (COPD): Yes - NEUROLOGICAL Hx Neurological Disorder: No - HEENT Hx HEENT Problems: No - RENAL Hx Chronic Kidney Disease: No - ENDOCRINE/METABOLIC Hx Hypothyroidism: No - HEMATOLOGICAL/ONCOLOGICAL Hx Human Immunodeficiency Virus (HIV): No - INTEGUMENTARY Hx Dermatological Problems: No - MUSCULOSKELETAL/RHEUMATOLOGICAL Hx Arthritis: No Hx Rheumatoid Arthritis: No - GASTROINTESTINAL Hx Gastrointestinal Disorders: No - GENITOURINARY/GYNECOLOGICAL Other/Comment: endometriosis,uterine fibroids - PSYCHIATRIC Hx Anxiety: Yes - SURGICAL HISTORY Hx Pulmonary Surgery: Yes (VATS lung biopsy and pleurodesis) Other/Comment: breast cyst removal (benign), D&C for uterine fibroids, chest tube x2 (spontaneous pneumothorax) with lung biopsy done on second episode. - ANESTHESIA Hx Anesthesia: Yes Hx Anesthesia Reactions: No Hx Malignant Hyperthermia: No Meds Allergies/Adverse Reactions: Allergies Allergy/AdvReac Type Severity Reaction Status Date / Time Sulfa (Sulfonamide Allergy RASH Verified 02/20/18 15:23 Antibiotics) Physical Exam - Constitutional Appears: Non-toxic, No Acute Distress - Head Exam Head Exam: ATRAUMATIC, NORMOCEPHALIC - Eye Exam Eye Exam: EOMI, Normal appearance, PERRL - ENT Exam ENT Exam: Mucous Membranes Moist, Normal Oropharynx - Respiratory Exam Respiratory Exam: Decreased Breath Sounds. absent: Accessory Muscle Use - Cardiovascular Exam Cardiovascular Exam: RRR, +S1, +S2 - GI/Abdominal Exam GI & Abdominal Exam: Normal Bowel Sounds, Soft - Extremities Exam Extremities exam: Positive for: normal capillary refill, pedal pulses present - Back Exam Back exam: absent: CVA tenderness (L), CVA tenderness (R) - Neurological Exam Neurological exam: Alert, Oriented x3 - Psychiatric Exam Psychiatric exam: Normal Affect, Normal Mood - Skin Skin Exam: Dry, Warm Results - Vital Signs Recent Vital Signs: Last Vital Signs Temp 100.4 F H 02/20/18 15:24 Pulse 102 H 02/20/18 15:24 Resp 24 02/20/18 15:24 BP 159/103 H 02/20/18 15:24 Pulse Ox 98 02/20/18 19:21 - Labs Result Diagrams: 02/20/18 17:30 02/20/18 17:05 Labs: Laboratory Results - last 24 hr 02/20/18 02/20/18 02/20/18 15:50 16:55 17:05 WBC RBC Hgb Hct MCV MCH MCHC RDW Plt Count MPV Neut % (Auto) Lymph % (Auto) [place] % (Auto) Eos % (Auto) Baso % (Auto) Neut # (Auto) Lymph # (Auto) [place] # (Auto) Eos # (Auto) Baso # (Auto) PT INR APTT pCO2 75 H* pO2 26 L* HCO3 30.1 H ABG pH 7.31 L ABG Total CO2 40.1 H ABG O2 Saturation 49.0 L ABG Base Excess 8.4 H Contreras Test Yes ABG Potassium 4.0 Sodium 141.0 143 Chloride 105.0 101 Glucose 101 Lactate 0.7 FiO2 21.0 Crit Value Called To Herberth lemayn Crit Value Called By 15 Crit Value Read Back Y Blood Gas Notified Time 1741 Potassium 3.7 Carbon Dioxide 30 Anion Gap 16 BUN 15 Creatinine 0.6 L Est GFR ( Amer) > 60 Est GFR (Non-Af Amer) > 60 Random Glucose 102 Calcium 9.6 Total Bilirubin 0.4 AST 36 ALT 73 H D Alkaline Phosphatase 84 Total Protein 6.9 Albumin 3.9 Globulin 3.0 Albumin/Globulin Ratio 1.3 Arterial Blood Potassium 4.0 Influenza Typ A,B (EIA) Negative for flu a/b 02/20/18 02/20/18 17:30 17:30 WBC 7.5 RBC 4.55 Hgb 13.7 Hct 41.0 MCV 90.2 MCH 30.1 MCHC 33.4 RDW 13.8 Plt Count 321 MPV 7.7 Neut % (Auto) 69.7 Lymph % (Auto) 20.4 [place] % (Auto) 8.4 Eos % (Auto) 0.8 Baso % (Auto) 0.7 Neut # (Auto) 5.2 Lymph # (Auto) 1.5 [place] # (Auto) 0.6 Eos # (Auto) 0.1 Baso # (Auto) 0.0 PT 11.0 INR 1.0 APTT 28.5 pCO2 pO2 HCO3 ABG pH ABG Total CO2 ABG O2 Saturation ABG Base Excess Contreras Test ABG Potassium Sodium Chloride Glucose Lactate FiO2 Crit Value Called To Crit Value Called By Crit Value Read Back Blood Gas Notified Time Potassium Carbon Dioxide Anion Gap BUN Creatinine Est GFR ( Amer) Est GFR (Non-Af Amer) Random Glucose Calcium Total Bilirubin AST ALT Alkaline Phosphatase Total Protein Albumin Globulin Albumin/Globulin Ratio Arterial Blood Potassium Influenza Typ A,B (EIA) Assessment & Plan - Assessment and Plan (Free Text) Plan: 57 year old female with a past medical history significant for 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 SOB has been getting progressively worse over the last week. Fever 100.4, tachycardia, dyspnea, tachypnea, noWBC. CXR shows severe bullous centrilobular and panlobular emphysematous changes with upper lobe more severely affected than the lower lobes. Patient to be placed on observation for presumed pneumonia, Ceftriaxone, Azithromycin, bronchodilators. Procalcitonin pending. HD stable at this time, NAD. Possible Pneumonia Advanced COPD Lymphangioleiomyomatosis - T 100.4, tachy. tachypneic, dyspnea - CXR severe bullous changes - Procalcitonin for AM - cont Acetazolamide - Ceftx, Azithromycin - bronchodilators - cont Fluticasone Chronic Pain syndrome - cont Percocet, Sertraline Anxiety - cont Xanax
[2018-02-20] MEDS ORDERED: ACETAMINOPHEN PO PRN (19:30)
[2018-02-20] MEDS ORDERED: OXYCODONE HCL PO PRN (19:30)
[2018-02-20] MEDS ORDERED: Albuterol-Ipratrop 3 mg / 0.5 (3 ml) UD INH PRN (19:34)
[2018-02-20] MEDS: Albuterol-Ipratrop 3 mg / 0.5 (3 ml) UD INH SCH (20:32)
[2018-02-20] MEDS ORDERED: FLUTICASONE PROPIONATE IH SCH (21:00)
[2018-02-20] MEDS: acetaZOLAMIDE 500 mg SR Cap PO SCH (22:39)
[2018-02-20] MEDS: Oxycodone/Acetaminophen 5/325 mg Tab PO PRN (22:39)
[2018-02-21] MEDS: Albuterol-Ipratrop 3 mg / 0.5 (3 ml) UD INH SCH ×7 (00:34→23:32)
[2018-02-21] MEDS: Oxycodone/Acetaminophen 5/325 mg Tab PO PRN ×3 (05:43→19:08)
[2018-02-21 06:02] LABS: BASO % 0.1 % (0.0-2.0); HEMOGLOBIN 13.6 g/dL (12.0-16.0); LYMPH # 0.8 K/uL (1.0-4.3); LYMPH % 15.2 % (20.0-40.0); MEAN CELL VOLUME 90.9 fl (81.0-99.0); MEAN CORPUSCULAR HEMOGLOBIN 29.6 pg (27.0-31.0); MEAN CORPUSCULAR HGB CONC 32.6 g/dL (33.0-37.0); MEAN PLATELET VOLUME 7.8 fl (7.2-11.7); MONO # 0.1 K/uL (0.0-0.8); MONO % 1.9 % (0.0-10.0); NEUT # 4.3 K/uL (1.8-7.0); NEUT % 82.8 % (50.0-75.0); NRBC % 0.1 % (0.0-0.0); RBC 4.6 Mil/uL (3.80-5.20); RED CELL DISTRIBUTION WIDTH 13.8 % (11.5-14.5); WHITE BLOOD COUNT 5.1 K/uL (4.8-10.8)
[2018-02-21 06:15] LABS: BLOOD UREA NITROGEN 14 mg/dl (7-17); CALCIUM 9.7 mg/dL (8.4-10.2); GFR AFRICAN-AMERICAN > 60; GFR NON-AFRICAN AMERICAN > 60
[2018-02-21] MEDS ORDERED: Hydrocortisone- 100 MG in Sodium Chloride 0.9% 100 ML IV SCH (09:00)
--- NOTE | 2018-02-21 09:16 | CP.PCM.CON ---
History of Present Illness - History of Present Illness History of Present Illness: This 57 year old female, who is a former cigarette smoker, is well known to me from prior consultation in hospital as well as the outpatient setting. She has comorbid pulmonary processes in the form of lymphangioleiomyomatosis and chronic obstructive pulmonary disease. Her disease has progressed to a point where she has been seen and evaluated for possible lung transplant at [facility] in [facility]. Recently she has noted a general poor physical feeling with progressive increasing dyspnea over the past one week. She has also been suffering from depressed mood with a sense of frustration over her chronic medical illness. She does use her medications as prescribed and remains on continuous oxygen at home. When seen at [facility] there was a request to eliminate the use of prednisone which she has attempted to do unsuccessfully. There has also been request to start pulmonary rehabilitation which she has not yet begun. With this current illness she is unable to state whether she has had fever but does admit to having had chills. There has been no chest pain or hemoptysis. She does have a congested cough but is unable to expectorate any sputum. She does have BiPAP ventilation set up at home, but recently has not been using this because of a sensation of worsening dyspnea upon applying the mask. When seen in the emergency department yesterday she did not have leukocytosis but she did have fever. Her chest x-ray appears relatively stable without any new infiltrates, but evidence of severe hyperinflation primarily affecting the upper lobes. Review of Systems - Review of Systems All systems: reviewed and no additional remarkable complaints except - Constitutional Constitutional: Chills, Fatigue - Respiratory Respiratory: Cough, Dyspnea, Chest Congestion - Gastrointestinal Gastrointestinal: Nausea - Genitourinary Genitourinary: Freq UTI - Musculoskeletal Musculoskeletal: Muscle Weakness, Myalgias - Neurological Neurological: Confusion, Memory Loss - Psychiatric Psychiatric: Depression Past Patient History - Infectious Disease Hx of Infectious Diseases: None - Past Medical History & Family History Past Medical History?: Yes Pertinent Family History: lung cancer - Past Social History Smoking Status: Former Smoker (stopped in 2016) Chewing Tobacco Use: No Cigar Use: No Alcohol: None Drugs: Denies Home Situation {Lives}: Alone - CARDIAC Hx Cardiac Disorders: No - PULMONARY Hx Chronic Obstructive Pulmonary Disease (COPD): Yes 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 - NEUROLOGICAL Hx Neurological Disorder: No - HEENT Hx HEENT Problems: Yes Other/Comment: eye glasses - RENAL Hx Chronic Kidney Disease: No - ENDOCRINE/METABOLIC Hx Endocrine Disorders: No Hx Hypothyroidism: No - HEMATOLOGICAL/ONCOLOGICAL Hx Blood Disorders: No Hx Human Immunodeficiency Virus (HIV): No - INTEGUMENTARY Hx Dermatological Problems: No - MUSCULOSKELETAL/RHEUMATOLOGICAL Hx Musculoskeletal Disorders: Yes Hx Back Pain: Yes Hx Falls: No Hx Rheumatoid Arthritis: No - GASTROINTESTINAL Hx Gastrointestinal Disorders: No - GENITOURINARY/GYNECOLOGICAL Hx Urinary Tract Infection: Yes Other/Comment: endometriosis,uterine fibroids - PSYCHIATRIC Hx Anxiety: Yes Hx Depression: Yes Hx Substance Use: No - SURGICAL HISTORY Hx Pulmonary Surgery: Yes (VATS lung biopsy and pleurodesis) Other/Comment: breast cyst removal (benign), D&C for uterine fibroids, chest tube x2 (spontaneous pneumothorax) with lung biopsy done on second episode. - ANESTHESIA Hx Anesthesia: Yes Hx Anesthesia Reactions: No Hx Malignant Hyperthermia: No Meds Allergies/Adverse Reactions: Allergies Allergy/AdvReac Type Severity Reaction Status Date / Time Sulfa (Sulfonamide Allergy RASH Verified 02/20/18 15:23 Antibiotics) - Medications Medications: Current Medications Acetazolamide (Diamox Sequels 500 Mg Sr Cap) 500 mg PO Q12 [facility] Last Admin: 02/20/18 22:39 Dose: 500 mg Albuterol Sulfate (Albuterol 0.083% Inhal [place] (2.5 Mg/3 Ml) Ud) 2.5 mg INH RQ4 PRN PRN Reason: Shortness of Breath Albuterol/Ipratropium (Duoneb 3 Mg/0.5 Mg (3 Ml) Ud) 3 ml INH RQ4 [facility]ISSE Last Admin: 02/21/18 07:41 Dose: 3 ml Alprazolam (Xanax) 0.25 mg PO Q8 PRN PRN Reason: Anxiety Cholecalciferol (Vitamin D) 1,000 intlu PO DAILY [facility] Enoxaparin Sodium (Lovenox) 40 mg SC DAILY [facility] PRN Reason: Protocol Home Med (Oxycodone Hcl/Acetaminophen [Percocet 7.5-325 Mg Tablet]) 1 tab PO Q6 PRN PRN Reason: Pain, severe (8-10) Azithromycin 500 mg/ Sodium (Chloride) 250 mls @ 250 mls/hr IVPB DAILY [facility]ISSE PRN Reason: Protocol Ceftriaxone Sodium 1 gm/ (Sodium Chloride) 100 mls @ 100 mls/hr IVPB DAILY DENISSE PRN Reason: Protocol Hydrocortisone Sodium Succinate 100 mg/ Sodium Chloride 100 mls @ 100 mls/hr IV Q12 [facility]IS[facility] Oxycodone/Acetaminophen (Percocet 5/325 Mg Tab) 1 tab PO Q6 PRN PRN Reason: Pain, moderate (4-7) Stop: 02/23/18 22:27 Last Admin: 02/21/18 05:43 Dose: 1 tab Pantoprazole Sodium (Protonix Ec Tab) 40 mg PO DAILY [facility] Sertraline HCl (Zoloft) 25 mg PO HS [facility]ISSE Physical Exam - Additional Findings Additional findings: Well-nourished, well-developed female who becomes somewhat dyspneic with conversation. Memory appears intact. Speech is fluent. No focal motor weakness identified. No palpable lymphadenopathy. Pharynx is pink and mucous membranes are moist, no exudate. Conjunctivae are pink and there is no scleral icterus. PERRLA. Neck is supple and trachea is midline, no visible JVD, no carotid bruit. No dullness on chest percussion, equal expansion. Inspiratory phases shortened, breath sounds are very diminished bilaterally. No wheezing is heard. No bronchial breathing or egophony. Scattered dry rales are heard in the lower lobes bilaterally. Heart sounds are well heard the rhythm is regular. No murmurs appreciated. Abdomen is soft, fleshy and nontender with normal bowel sounds. No dependent edema of the ankles. Nailbeds are pink without clubbing. No calf tenderness or palpable venous cords. Peripheral pulses are diminished but present in all 4 extremities. Results - Vital Signs Recent Vital Signs: Last Vital Signs Temp 97.5 F L 02/21/18 08:04 Pulse 96 H 02/21/18 08:04 Resp 18 02/21/18 08:04 BP 121/82 02/21/18 08:04 Pulse Ox 96 02/21/18 08:04 - Labs Result Diagrams: 02/21/18 05:30 02/21/18 05:30 Labs: Laboratory Results - last 24 hr 02/20/18 02/20/18 02/20/18 15:50 16:55 17:05 WBC RBC Hgb Hct MCV MCH MCHC RDW Plt Count MPV Neut % (Auto) Lymph % (Auto) [place] % (Auto) Eos % (Auto) Baso % (Auto) Neut # (Auto) Lymph # (Auto) [place] # (Auto) Eos # (Auto) Baso # (Auto) PT INR APTT pCO2 75 H* pO2 26 L* HCO3 30.1 H ABG pH 7.31 L ABG Total CO2 40.1 H ABG O2 Saturation 49.0 L ABG Base Excess 8.4 H Contreras Test Yes ABG Potassium 4.0 Sodium 141.0 143 Chloride 105.0 101 Glucose 101 Lactate 0.7 FiO2 21.0 Crit Value Called To Herberth roberto Crit Value Called By 15 Crit Value Read Back Y Blood Gas Notified Time 1748 Potassium 3.7 Carbon Dioxide 30 Anion Gap 16 BUN 15 Creatinine 0.6 L Est GFR ( Amer) > 60 Est GFR (Non-Af Amer) > 60 Random Glucose 102 Calcium 9.6 Total Bilirubin 0.4 AST 36 ALT 73 H D Alkaline Phosphatase 84 Total Protein 6.9 Albumin 3.9 Globulin 3.0 Albumin/Globulin Ratio 1.3 Arterial Blood Potassium 4.0 Influenza Typ A,B (EIA) Negative for flu a/b 02/20/18 02/20/18 02/21/18 17:30 17:30 05:30 WBC 7.5 5.1 RBC 4.55 4.60 Hgb 13.7 13.6 Hct 41.0 41.8 MCV 90.2 90.9 MCH 30.1 29.6 MCHC 33.4 32.6 L RDW 13.8 13.8 Plt Count 321 313 MPV 7.7 7.8 Neut % (Auto) 69.7 82.8 H Lymph % (Auto) 20.4 15.2 L [place] % (Auto) 8.4 1.9 Eos % (Auto) 0.8 0.0 Baso % (Auto) 0.7 0.1 Neut # (Auto) 5.2 4.3 Lymph # (Auto) 1.5 0.8 L [place] # (Auto) 0.6 0.1 Eos # (Auto) 0.1 0.0 Baso # (Auto) 0.0 0.0 PT 11.0 INR 1.0 APTT 28.5 pCO2 pO2 HCO3 ABG pH ABG Total CO2 ABG O2 Saturation ABG Base Excess Contreras Test ABG Potassium Sodium Chloride Glucose Lactate FiO2 Crit Value Called To Crit Value Called By Crit Value Read Back Blood Gas Notified Time Potassium Carbon Dioxide Anion Gap BUN Creatinine Est GFR ( Amer) Est GFR (Non-Af Amer) Random Glucose Calcium Total Bilirubin AST ALT Alkaline Phosphatase Total Protein Albumin Globulin Albumin/Globulin Ratio Arterial Blood Potassium Influenza Typ A,B (EIA) 02/21/18 05:30 WBC RBC Hgb Hct MCV MCH MCHC RDW Plt Count MPV Neut % (Auto) Lymph % (Auto) [place] % (Auto) Eos % (Auto) Baso % (Auto) Neut # (Auto) Lymph # (Auto) [place] # (Auto) Eos # (Auto) Baso # (Auto) PT INR APTT pCO2 pO2 HCO3 ABG pH ABG Total CO2 ABG O2 Saturation ABG Base Excess Contreras Test ABG Potassium Sodium 145 Chloride 102 Glucose Lactate FiO2 Crit Value Called To Crit Value Called By Crit Value Read Back Blood Gas Notified Time Potassium 3.8 Carbon Dioxide 31 H Anion Gap 16 BUN 14 Creatinine 0.5 L Est GFR ( Amer) > 60 Est GFR (Non-Af Amer) > 60 Random Glucose 142 H Calcium 9.7 Total Bilirubin AST ALT Alkaline Phosphatase Total Protein Albumin Globulin Albumin/Globulin Ratio Arterial Blood Potassium Influenza Typ A,B (EIA) Assessment & Plan (1) Acute on chronic respiratory failure with hypoxia and hypercapnia Status: Acute Priority: High (2) COPD exacerbation Status: Acute Priority: High (3) Lymphangioleiomyomatosis Status: Chronic Priority: High (4) Depressed mood Status: Acute Priority: Medium - Assessment and Plan (Free Text) Plan: Agree with current regimen using supplemental oxygen and frequent aerosol therapy. Antibiotics are being given empirically until infectious process is ruled out. Will give moderate dose hydrocortisone parenterally for short course therapy. CO2 on the electrolyte panel appears improved from the time of admission. Will continue use of acetazolamide. Sertraline dose has been reduced to 25 mg daily at bedtime. Initiate physical therapy for strengthening as early as possible. - Date & Time Date: 02/21/18 Time: 09:06
[2018-02-21] MEDS: acetaZOLAMIDE 500 mg SR Cap PO SCH ×2 (09:37→21:12)
[2018-02-21] MEDS: Pantoprazole 40 mg EC Tab PO SCH (09:37)
[2018-02-21] MEDS: Cholecalciferol 1,000 INTLU TAB PO SCH (09:38)
[2018-02-21] MEDS: Enoxaparin 40 mg Syringe SC SCH (09:39)
[2018-02-21] MEDS: Azithromycin 500 MG in Sodium Chloride 0.9% 250 ML IVPB SCH (09:40)
--- NOTE | 2018-02-21 11:24 | CARD ---
APPROVED REPORT EKG Measurement Heart [id number] <Conclusion> Sinus tachycardia Otherwise normal ECG
--- NOTE | 2018-02-21 14:01 | CP.PCM.PN ---
<[place] - Last Filed: 02/21/18 14:35> Subjective - Date & Time of Evaluation Date of Evaluation: 02/21/18 Time of Evaluation: 14:20 - Subjective Subjective: Patient seen and examined at bedside today. Pt is currently on 2 L NC, not in acute distress. Pt states her cough is slightly better but dyspnea remains the same. Denies any fever but reports to have chills. Denies chest pain, nausea, vomiting,abdominal pain or dysuria. Pt is tolerating PO. has been afebrile. Objective - Vital Signs/Intake and Output Vital Signs (last 24 hours): Temp Pulse Resp BP Pulse Ox 97.9 F 102 H 18 111/76 97 02/21/18 12:00 02/21/18 12:00 02/21/18 12:00 02/21/18 12:00 02/21/18 12:00 - Medications Medications: Current Medications Acetazolamide (Diamox Sequels 500 Mg Sr Cap) 500 mg PO Q12 [facility] Last Admin: 02/21/18 09:37 Dose: 500 mg Albuterol Sulfate (Albuterol 0.083% Inhal Caridad (2.5 Mg/3 Ml) Ud) 2.5 mg INH RQ4 PRN PRN Reason: Shortness of Breath Albuterol/Ipratropium (Duoneb 3 Mg/0.5 Mg (3 Ml) Ud) 3 ml INH RQ4 [facility] Last Admin: 02/21/18 11:13 Dose: 3 ml Alprazolam (Xanax) 0.25 mg PO Q8 PRN PRN Reason: Anxiety Last Admin: 02/21/18 10:34 Dose: 0.25 mg Cholecalciferol (Vitamin D) 1,000 intlu PO DAILY [facility] Last Admin: 02/21/18 09:38 Dose: 1,000 intlu Enoxaparin Sodium (Lovenox) 40 mg SC DAILY [facility] PRN Reason: Protocol Last Admin: 02/21/18 09:39 Dose: 40 mg Hydrocortisone Sodium Succinate (Solu-Cortef) 100 mg IV Q12 [facility] Last Admin: 02/21/18 11:03 Dose: 100 mg Azithromycin 500 mg/ Sodium (Chloride) 250 mls @ 250 mls/hr IVPB DAILY [facility] PRN Reason: Protocol Last Admin: 02/21/18 09:40 Dose: 250 mls/hr Ceftriaxone Sodium 1 gm/ (Sodium Chloride) 100 mls @ 100 mls/hr IVPB DAILY [facility] PRN Reason: Protocol Last Admin: 02/21/18 09:38 Dose: 100 mls/hr Oxycodone/Acetaminophen (Percocet 5/325 Mg Tab) 1 tab PO Q6 PRN PRN Reason: Pain, moderate (4-7) Stop: 02/23/18 22:27 Last Admin: 02/21/18 12:57 Dose: 1 tab Pantoprazole Sodium (Protonix Ec Tab) 40 mg PO DAILY [facility] Last Admin: 02/21/18 09:37 Dose: 40 mg Sertraline HCl (Zoloft) 25 mg PO HS [facility] - Labs Labs: 02/21/18 05:30 02/21/18 05:30 PT 11.0 Seconds (9.8-13.1) 02/20/18 17:30 INR 1.0 (0.9-1.2) 02/20/18 17:30 APTT 28.5 Seconds (25.6-37.1) 02/20/18 17:30 - Constitutional Appears: Non-toxic, No Acute Distress - Eye Exam Eye Exam: Normal appearance - ENT Exam ENT Exam: Mucous Membranes Moist, Normal Oropharynx - Neck Exam Neck Exam: Normal Inspection. absent: Lymphadenopathy - Respiratory Exam Respiratory Exam: Decreased Breath Sounds (B/L lower lungs, no wheezing or rhonchi), NORMAL BREATHING PATTERN. absent: Respiratory Distress - Cardiovascular Exam Cardiovascular Exam: REGULAR RHYTHM, RRR, +S1, +S2 - GI/Abdominal Exam GI & Abdominal Exam: Soft, Normal Bowel Sounds. absent: Tenderness - Extremities Exam Extremities Exam: Normal Inspection. absent: Pedal Edema - Neurological Exam Neurological Exam: Alert, Normal Gait - Psychiatric Exam Psychiatric exam: Normal Affect, Normal Mood Assessment and Plan - Assessment and Plan (Free Text) Assessment: 57 year old female w/ a pmhx of advanced stage COPD/Lymphangioleiomyomatosis ( former cigarette smoker), obesity, history of UTI, Chronic pain syndrome, anxiety, who presented to the ED on 02/20/18 due to 6 days of chills and worsening shortness of breath which has not responded to her home therapies. CXR shows severe bullous centrilobular and panlobular emphysematous changes with upper lobe more severely affected than the lower lobes. patient is admitted for presumed pneumonia, currently on Ceftriaxone, Azithromycin, and bronchodilators. Possible Pneumonia Advanced COPD Lymphangioleiomyomatosis - Afebrile since the admission (Tmax 100.4 on admission) - CXR shows severe bullous centrilobular and panlobular emphysematous changes with upper lobe more severely affected than the lower lobes. - Procalcitonin < 0.05 this morning -Edger Feeder Dr. Interiano on board -Cont Acetazolamide -Continue Ceftriaxone 1 gm IVPB daily (day 2) -Continue Azithromycin 500 mg daily (day 2) -Continue duoNEB Q4 -Start hydrocortisone 100 mg IV Q12 Chronic Pain syndrome -Continue Percocet, -Start Sertraline 25 mg po qhs Anxiety - cont Xanax Diet regular diet DVT prophylaxis Lovenox 40 mg sc daily <Juan Meza - Last Filed: 02/23/18 06:56> Objective - Vital Signs/Intake and Output Vital Signs (last 24 hours): Temp Pulse Resp BP Pulse Ox 97.5 F L 89 20 121/75 93 L 02/22/18 23:57 02/22/18 23:57 02/22/18 23:57 02/22/18 23:57 02/22/18 23:57 - Medications Medications: Current Medications Acetazolamide (Diamox Sequels 500 Mg Sr Cap) 500 mg PO Q12 [facility] Last Admin: 02/22/18 21:29 Dose: 500 mg Albuterol Sulfate (Albuterol 0.083% Inhal Caridad (2.5 Mg/3 Ml) Ud) 2.5 mg INH RQ4 PRN PRN Reason: Shortness of Breath Albuterol/Ipratropium (Duoneb 3 Mg/0.5 Mg (3 Ml) Ud) 3 ml INH RQ4 [facility] Last Admin: 02/23/18 05:12 Dose: 3 ml Alprazolam (Xanax) 0.25 mg PO Q8 PRN PRN Reason: Anxiety Last Admin: 02/22/18 23:07 Dose: 0.25 mg Cholecalciferol (Vitamin D) 1,000 intlu PO DAILY [facility] Last Admin: 02/22/18 08:15 Dose: 1,000 intlu Enoxaparin Sodium (Lovenox) 40 mg SC DAILY [facility] PRN Reason: Protocol Last Admin: 02/22/18 08:14 Dose: 40 mg Hydrocortisone Sodium Succinate (Solu-Cortef) 100 mg IV Q12 [facility] Last Admin: 02/22/18 20:29 Dose: 100 mg Azithromycin 500 mg/ Sodium (Chloride) 250 mls @ 250 mls/hr IVPB DAILY [facility] PRN Reason: Protocol Last Admin: 02/22/18 08:20 Dose: 250 mls/hr Ceftriaxone Sodium 1 gm/ (Sodium Chloride) 100 mls @ 100 mls/hr IVPB DAILY [facility] PRN Reason: Protocol Last Admin: 02/22/18 08:20 Dose: 100 mls/hr Oxycodone/Acetaminophen (Percocet 5/325 Mg Tab) 1 tab PO Q6 PRN PRN Reason: Pain, moderate (4-7) Stop: 02/23/18 22:27 Last Admin: 02/22/18 20:20 Dose: 1 tab Pantoprazole Sodium (Protonix Ec Tab) 40 mg PO DAILY [facility] Last Admin: 02/22/18 08:15 Dose: 40 mg Promethazine HCl/Dextromethorphan (Phenergan Dm Syrup) 10 ml PO Q6 PRN PRN Reason: Cough Last Admin: 02/22/18 09:55 Dose: 10 ml - Labs Labs: 02/22/18 05:30 02/22/18 05:30 PT 11.0 Seconds (9.8-13.1) 02/20/18 17:30 INR 1.0 (0.9-1.2) 02/20/18 17:30 APTT 28.5 Seconds (25.6-37.1) 02/20/18 17:30 Attending/Attestation - Attestation I have personally seen and examined this patient.: Yes I have fully participated in the care of the patient.: Yes I have reviewed all pertinent clinical information, including history, physical exam and plan: Yes
[2018-02-21] MEDS: Promethazine DM 12.5 mg-30 mg/10 ml Syrup PO PRN (16:47)
[2018-02-22] MEDS: Oxycodone/Acetaminophen 5/325 mg Tab PO PRN ×3 (02:38→20:20)
[2018-02-22] MEDS: Albuterol-Ipratrop 3 mg / 0.5 (3 ml) UD INH SCH ×6 (04:22→23:13)
[2018-02-22 06:28] LABS: HEMOGLOBIN 12.7 g/dL (12.0-16.0); MEAN CELL VOLUME 91.6 fl (81.0-99.0); MEAN CORPUSCULAR HEMOGLOBIN 29.7 pg (27.0-31.0); MEAN CORPUSCULAR HGB CONC 32.5 g/dL (33.0-37.0); RBC 4.26 Mil/uL (3.80-5.20); RED CELL DISTRIBUTION WIDTH 14.1 % (11.5-14.5); WHITE BLOOD COUNT 11.8 K/uL (4.8-10.8)
[2018-02-22 06:49] LABS: ALB/GLOB RATIO 1.3 (1.0-2.1); ALBUMIN 3.8 g/dL (3.5-5.0); ALT/SGPT 60 U/L (9-52); AST/SGOT 23 U/L (14-36); BLOOD UREA NITROGEN 19 mg/dl (7-17); CALCIUM 9.4 mg/dL (8.4-10.2); GFR AFRICAN-AMERICAN > 60; GFR NON-AFRICAN AMERICAN > 60
[2018-02-22] MEDS: Enoxaparin 40 mg Syringe SC SCH (08:14)
[2018-02-22] MEDS: acetaZOLAMIDE 500 mg SR Cap PO SCH ×2 (08:14→21:29)
[2018-02-22] MEDS: Pantoprazole 40 mg EC Tab PO SCH (08:15)
[2018-02-22] MEDS: Cholecalciferol 1,000 INTLU TAB PO SCH (08:15)
[2018-02-22] MEDS: Azithromycin 500 MG in Sodium Chloride 0.9% 250 ML IVPB SCH (08:20)
--- NOTE | 2018-02-22 08:35 | CP.PCM.PN ---
<Alton Taylor - Last Filed: 02/22/18 13:07> Subjective - Date & Time of Evaluation Date of Evaluation: 02/22/18 Time of Evaluation: 07:10 - Subjective Subjective: 57 y/o F seen and examined by bedside. Pt reports feeling better. Cough is productive at times with clear/white thin sputum. Pt afebrile with NO acute events overnight. Objective - Vital Signs/Intake and Output Vital Signs (last 24 hours): Temp Pulse Resp BP Pulse Ox 97.6 F 101 H 20 132/81 100 02/22/18 08:09 02/22/18 08:09 02/22/18 08:09 02/22/18 08:09 02/22/18 08:09 - Medications Medications: Current Medications Acetazolamide (Diamox Sequels 500 Mg Sr Cap) 500 mg PO Q12 [facility] Last Admin: 02/22/18 08:14 Dose: 500 mg Albuterol Sulfate (Albuterol 0.083% Inhal Caridad (2.5 Mg/3 Ml) Ud) 2.5 mg INH RQ4 PRN PRN Reason: Shortness of Breath Albuterol/Ipratropium (Duoneb 3 Mg/0.5 Mg (3 Ml) Ud) 3 ml INH RQ4 [facility] Last Admin: 02/22/18 08:00 Dose: 3 ml Alprazolam (Xanax) 0.25 mg PO Q8 PRN PRN Reason: Anxiety Last Admin: 02/21/18 10:34 Dose: 0.25 mg Cholecalciferol (Vitamin D) 1,000 intlu PO DAILY [facility] Last Admin: 02/22/18 08:15 Dose: 1,000 intlu Enoxaparin Sodium (Lovenox) 40 mg SC DAILY [facility] PRN Reason: Protocol Last Admin: 02/22/18 08:14 Dose: 40 mg Hydrocortisone Sodium Succinate (Solu-Cortef) 100 mg IV Q12 [facility] Last Admin: 02/22/18 08:15 Dose: 100 mg Azithromycin 500 mg/ Sodium (Chloride) 250 mls @ 250 mls/hr IVPB DAILY [facility] PRN Reason: Protocol Last Admin: 02/22/18 08:20 Dose: 250 mls/hr Ceftriaxone Sodium 1 gm/ (Sodium Chloride) 100 mls @ 100 mls/hr IVPB DAILY [facility] PRN Reason: Protocol Last Admin: 02/22/18 08:20 Dose: 100 mls/hr Oxycodone/Acetaminophen (Percocet 5/325 Mg Tab) 1 tab PO Q6 PRN PRN Reason: Pain, moderate (4-7) Stop: 02/23/18 22:27 Last Admin: 02/22/18 02:38 Dose: 1 tab Pantoprazole Sodium (Protonix Ec Tab) 40 mg PO DAILY [facility] Last Admin: 02/22/18 08:15 Dose: 40 mg Promethazine HCl/Dextromethorphan (Phenergan Dm Syrup) 10 ml PO Q6 PRN PRN Reason: Cough Last Admin: 02/21/18 16:47 Dose: 10 ml - Labs Labs: 02/22/18 05:30 02/22/18 05:30 PT 11.0 Seconds (9.8-13.1) 02/20/18 17:30 INR 1.0 (0.9-1.2) 02/20/18 17:30 APTT 28.5 Seconds (25.6-37.1) 02/20/18 17:30 - Constitutional Appears: No Acute Distress - Eye Exam Eye Exam: EOMI - Neck Exam Neck Exam: Full ROM. absent: Meningismus - Respiratory Exam Respiratory Exam: Clear to Ausculation Bilateral, NORMAL BREATHING PATTERN. absent: Wheezes - Cardiovascular Exam Cardiovascular Exam: REGULAR RHYTHM, +S1, +S2 - GI/Abdominal Exam GI & Abdominal Exam: Soft, Normal Bowel Sounds. 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 --Pt presented to the ED on 02/20/18 due to 6 days of chills and worsening SOB, not responsive to home therapies. CXR shows severe bullous centrilobular and panlobular emphysematous changes with upper lobe more severely affected than the lower lobes. patient is PLAN: Possible Pneumonia/Advanced COPD/Lymphangioleiomyomatosis -Afebrile -Procalcitonin < 0.05 x2. -[facility]illiande[employer] Lopper, Dr. Interiano, recommendations appreciated. -C/w Acetazolamide -Continue IV Ceftriaxone and Azithromycin -Continue duoNEB Q4 -Start hydrocortisone 100 mg IV Q12 -Will be transferred to Med-Surg. Chronic Pain syndrome -Continue Percocet, -Start Sertraline 25 mg po qhs Anxiety -C/w Xanax Diet -regular diet DVT prophylaxis -Lovenox 40 mg sc daily <Garrick Araujo - Last Filed: 02/23/18 10:29> Objective - Vital Signs/Intake and Output Vital Signs (last 24 hours): Temp Pulse Resp BP Pulse Ox 97.8 F 88 20 110/71 99 02/23/18 08:12 02/23/18 08:12 02/23/18 08:12 02/23/18 08:12 02/23/18 08:12 - Medications Medications: Current Medications Acetazolamide (Diamox Sequels 500 Mg Sr Cap) 500 mg PO Q12 [facility] Last Admin: 02/23/18 09:17 Dose: 500 mg Albuterol Sulfate (Albuterol 0.083% Inhal Caridad (2.5 Mg/3 Ml) Ud) 2.5 mg INH RQ4 PRN PRN Reason: Shortness of Breath Albuterol/Ipratropium (Duoneb 3 Mg/0.5 Mg (3 Ml) Ud) 3 ml INH RQID [facility] Alprazolam (Xanax) 0.25 mg PO Q8 PRN PRN Reason: Anxiety Last Admin: 02/22/18 23:07 Dose: 0.25 mg Cholecalciferol (Vitamin D) 1,000 intlu PO DAILY [facility] Last Admin: 02/23/18 09:17 Dose: 1,000 intlu Enoxaparin Sodium (Lovenox) 40 mg SC DAILY [facility] PRN Reason: Protocol Last Admin: 02/23/18 09:18 Dose: 40 mg Home Med (Home Med) 1 unit PO DAILY [facility] Hydrocortisone Sodium Succinate (Solu-Cortef) 100 mg IV Q12 [facility] Last Admin: 02/23/18 10:23 Dose: 100 mg Azithromycin 500 mg/ Sodium (Chloride) 250 mls @ 250 mls/hr IVPB DAILY [facility] PRN Reason: Protocol Stop: 02/23/18 11:00 Last Admin: 05/17/18 10:24 Dose: 250 mls/hr Ceftriaxone Sodium 1 gm/ (Sodium Chloride) 100 mls @ 100 mls/hr IVPB DAILY [facility] PRN Reason: Protocol Last Admin: 02/23/18 10:24 Dose: 100 mls/hr Loratadine (Claritin) 10 mg PO DAILY [facility] Last Admin: 02/23/18 09:17 Dose: 10 mg Oxycodone/Acetaminophen (Percocet 5/325 Mg Tab) 1 tab PO Q6 PRN PRN Reason: Pain, moderate (4-7) Stop: 02/23/18 22:27 Last Admin: 02/22/18 20:20 Dose: 1 tab Pantoprazole Sodium (Protonix Ec Tab) 40 mg PO DAILY [facility] Last Admin: 02/23/18 09:17 Dose: 40 mg Promethazine HCl/Dextromethorphan (Phenergan Dm Syrup) 10 ml PO Q6 PRN PRN Reason: Cough Last Admin: 02/23/18 10:24 Dose: 10 ml - Labs Labs: 02/23/18 05:25 02/23/18 05:25 PT 11.0 Seconds (9.8-13.1) 02/20/18 17:30 INR 1.0 (0.9-1.2) 02/20/18 17:30 APTT 28.5 Seconds (25.6-37.1) 02/20/18 17:30 Attending/Attestation - Attestation I have personally seen and examined this patient.: Yes I have fully participated in the care of the patient.: Yes I have reviewed all pertinent clinical information, including history, physical exam and plan: Yes
[2018-02-22] MEDS: Promethazine DM 12.5 mg-30 mg/10 ml Syrup PO PRN (09:55)
--- NOTE | 2018-02-22 10:33 | CP.PCM.PN ---
Subjective - Date & Time of Evaluation Date of Evaluation: 02/22/18 Time of Evaluation: 10:33 - Subjective Subjective: Seen on morning rounds in telemetry. Her vital signs have been stable, but she continues to c/o SOB. Her mood is somewhat angered because of continued ill feeling and poor prognosis. She uses her oxygen continually, both here and at home. Her oxygenation is satisfactory, but her WOB is high because of her JIMENEZ and COPD. She has not been febrile since presentation, and her WBC has become elevated, but this is likely because of steroid therapy. A urine specimen was collected on day of admission, but a result is not yet in the EMR. She remains on dual antibiotic therapy empirically for now. Her respiratory rate is increased at 20 BPM chronically. There is recruitment of respiratory muscles. No dullness noted on percussion. Inspiratory phase appears shortened. No audible wheezes are heard, no bronchial breath sounds. Dry rales are present (few) in both lower lobes. No rub is heard. Heart sounds are distant, regular, tachy. No dependant edema or cyanosis. Febrile presentation, source not yet clear. Awaiting results of urine. Treatments to improve any element of COPD exacerbation are ongoing. JIMENEZ will require lung transplantation for improvement. Continue empiric antibiotics for now. May be transferred to general medical bed. Objective - Vital Signs/Intake and Output Vital Signs (last 24 hours): Temp Pulse Resp BP Pulse Ox 97.6 F 101 H 20 132/81 100 02/22/18 08:09 02/22/18 08:09 02/22/18 08:09 02/22/18 08:09 02/22/18 08:09 - Medications Medications: Current Medications Acetazolamide (Diamox Sequels 500 Mg Sr Cap) 500 mg PO Q12 [facility] Last Admin: 02/22/18 08:14 Dose: 500 mg Albuterol Sulfate (Albuterol 0.083% Inhal Caridad (2.5 Mg/3 Ml) Ud) 2.5 mg INH RQ4 PRN PRN Reason: Shortness of Breath Albuterol/Ipratropium (Duoneb 3 Mg/0.5 Mg (3 Ml) Ud) 3 ml INH RQ4 [facility] Last Admin: 02/22/18 08:00 Dose: 3 ml Alprazolam (Xanax) 0.25 mg PO Q8 PRN PRN Reason: Anxiety Last Admin: 02/22/18 09:40 Dose: 0.25 mg Cholecalciferol (Vitamin D) 1,000 intlu PO DAILY [facility] Last Admin: 02/22/18 08:15 Dose: 1,000 intlu Enoxaparin Sodium (Lovenox) 40 mg SC DAILY [facility] PRN Reason: Protocol Last Admin: 02/22/18 08:14 Dose: 40 mg Hydrocortisone Sodium Succinate (Solu-Cortef) 100 mg IV Q12 [facility] Last Admin: 02/22/18 08:15 Dose: 100 mg Azithromycin 500 mg/ Sodium (Chloride) 250 mls @ 250 mls/hr IVPB DAILY [facility] PRN Reason: Protocol Last Admin: 02/22/18 08:20 Dose: 250 mls/hr Ceftriaxone Sodium 1 gm/ (Sodium Chloride) 100 mls @ 100 mls/hr IVPB DAILY [facility] PRN Reason: Protocol Last Admin: 02/22/18 08:20 Dose: 100 mls/hr Oxycodone/Acetaminophen (Percocet 5/325 Mg Tab) 1 tab PO Q6 PRN PRN Reason: Pain, moderate (4-7) Stop: 02/23/18 22:27 Last Admin: 02/22/18 02:38 Dose: 1 tab Pantoprazole Sodium (Protonix Ec Tab) 40 mg PO DAILY [facility] Last Admin: 02/22/18 08:15 Dose: 40 mg Promethazine HCl/Dextromethorphan (Phenergan Dm Syrup) 10 ml PO Q6 PRN PRN Reason: Cough Last Admin: 02/22/18 09:55 Dose: 10 ml - Labs Labs: 02/22/18 05:30 02/22/18 05:30 PT 11.0 Seconds (9.8-13.1) 02/20/18 17:30 INR 1.0 (0.9-1.2) 02/20/18 17:30 APTT 28.5 Seconds (25.6-37.1) 02/20/18 17:30 Assessment and Plan (1) Acute on chronic respiratory failure with hypoxia and hypercapnia Status: Acute (2) COPD exacerbation Status: Acute (3) Lymphangioleiomyomatosis Status: Chronic (4) Depressed mood Status: Acute
[2018-02-22 16:10] VITALS: RESP 20
[2018-02-23] MEDS: Albuterol-Ipratrop 3 mg / 0.5 (3 ml) UD INH SCH ×2 (05:12→07:55)
[2018-02-23 06:59] LABS: BASO % 0.1 % (0.0-2.0); HEMOGLOBIN 12.6 g/dL (12.0-16.0); LYMPH # 1.3 K/uL (1.0-4.3); LYMPH % 11.8 % (20.0-40.0); MEAN CELL VOLUME 91.8 fl (81.0-99.0); MEAN CORPUSCULAR HEMOGLOBIN 29.8 pg (27.0-31.0); MEAN CORPUSCULAR HGB CONC 32.5 g/dL (33.0-37.0); MEAN PLATELET VOLUME 8.2 fl (7.2-11.7); MONO # 0.6 K/uL (0.0-0.8); MONO % 5.6 % (0.0-10.0); NEUT # 8.8 K/uL (1.8-7.0); NEUT % 82.5 % (50.0-75.0); NRBC % 0.1 % (0.0-0.0); RBC 4.23 Mil/uL (3.80-5.20); WHITE BLOOD COUNT 10.6 K/uL (4.8-10.8)
[2018-02-23 07:21] LABS: ALB/GLOB RATIO 1.3 (1.0-2.1); ALBUMIN 3.6 g/dL (3.5-5.0); ALT/SGPT 42 U/L (9-52); AST/SGOT 18 U/L (14-36); BLOOD UREA NITROGEN 17 mg/dl (7-17); CALCIUM 9.2 mg/dL (8.4-10.2); GFR AFRICAN-AMERICAN > 60; GFR NON-AFRICAN AMERICAN > 60
[2018-02-23 08:13] VITALS: BP 110/71; PULSE 88; TEMP 97.8; O2SAT 99
[2018-02-23] MEDS: acetaZOLAMIDE 500 mg SR Cap PO SCH (09:17)
[2018-02-23] MEDS: Cholecalciferol 1,000 INTLU TAB PO SCH (09:17)
[2018-02-23] MEDS: Pantoprazole 40 mg EC Tab PO SCH (09:17)
[2018-02-23] MEDS: Enoxaparin 40 mg Syringe SC SCH (09:18)
--- NOTE | 2018-02-23 09:36 | CP.PCM.PN ---
Subjective - Date & Time of Evaluation Date of Evaluation: 02/23/18 Time of Evaluation: 09:35 - Subjective Subjective: Easily becomes tearful, but continues to refuse antidepressant rx. Transferred to regular medical bed yesterday, but room is 'cold' and this is causing her to feel more SOB. She continues to receive the same medications without any difficulty. Her vital signs have been stable. with 'okay' oxygenation. The leukocytosis present yesterday has decreased, but there was no urine specimen sent to the lab. Spoke with her at length about her illness and the options that are available to her. She appears more comfortable and less depressed at the present time. I will try starting a lower dose roflumilast to see if this may help relieve some of her SOB (the COPD part). Azithromycin will be stopped today, rocephin and hydrocortisone will continue. Another request for a urine specimen was placed in the EMR. Physical therapy eval requested. Objective - Vital Signs/Intake and Output Vital Signs (last 24 hours): Temp Pulse Resp BP Pulse Ox 97.8 F 88 20 110/71 99 02/23/18 08:12 02/23/18 08:12 02/23/18 08:12 02/23/18 08:12 02/23/18 08:12 - Medications Medications: Current Medications Acetazolamide (Diamox Sequels 500 Mg Sr Cap) 500 mg PO Q12 [facility] Last Admin: 02/23/18 09:17 Dose: 500 mg Albuterol Sulfate (Albuterol 0.083% Inhal Caridad (2.5 Mg/3 Ml) Ud) 2.5 mg INH RQ4 PRN PRN Reason: Shortness of Breath Albuterol/Ipratropium (Duoneb 3 Mg/0.5 Mg (3 Ml) Ud) 3 ml INH RQ4 [facility] Last Admin: 02/23/18 07:55 Dose: 3 ml Alprazolam (Xanax) 0.25 mg PO Q8 PRN PRN Reason: Anxiety Last Admin: 02/22/18 23:07 Dose: 0.25 mg Cholecalciferol (Vitamin D) 1,000 intlu PO DAILY [facility] Last Admin: 02/23/18 09:17 Dose: 1,000 intlu Enoxaparin Sodium (Lovenox) 40 mg SC DAILY [facility] PRN Reason: Protocol Last Admin: 02/23/18 09:18 Dose: 40 mg Hydrocortisone Sodium Succinate (Solu-Cortef) 100 mg IV Q12 [facility] Last Admin: 02/22/18 20:29 Dose: 100 mg Azithromycin 500 mg/ Sodium (Chloride) 250 mls @ 250 mls/hr IVPB DAILY [facility] PRN Reason: Protocol Last Admin: 02/22/18 08:20 Dose: 250 mls/hr Ceftriaxone Sodium 1 gm/ (Sodium Chloride) 100 mls @ 100 mls/hr IVPB DAILY [facility] PRN Reason: Protocol Last Admin: 02/22/18 08:20 Dose: 100 mls/hr Loratadine (Claritin) 10 mg PO DAILY [facility] Last Admin: 02/23/18 09:17 Dose: 10 mg Oxycodone/Acetaminophen (Percocet 5/325 Mg Tab) 1 tab PO Q6 PRN PRN Reason: Pain, moderate (4-7) Stop: 02/23/18 22:27 Last Admin: 02/22/18 20:20 Dose: 1 tab Pantoprazole Sodium (Protonix Ec Tab) 40 mg PO DAILY [facility] Last Admin: 02/23/18 09:17 Dose: 40 mg Promethazine HCl/Dextromethorphan (Phenergan Dm Syrup) 10 ml PO Q6 PRN PRN Reason: Cough Last Admin: 02/22/18 09:55 Dose: 10 ml - Labs Labs: 02/23/18 05:25 02/23/18 05:25 PT 11.0 Seconds (9.8-13.1) 02/20/18 17:30 INR 1.0 (0.9-1.2) 02/20/18 17:30 APTT 28.5 Seconds (25.6-37.1) 02/20/18 17:30 Assessment and Plan (1) Acute on chronic respiratory failure with hypoxia and hypercapnia Status: Acute (2) COPD exacerbation Status: Acute (3) Lymphangioleiomyomatosis Status: Chronic (4) Depressed mood Status: Acute
--- NOTE | 2018-02-23 10:07 | CP.PCM.PN ---
<Alton Taylor - Last Filed: 02/23/18 12:55> Subjective - Date & Time of Evaluation Date of Evaluation: 02/23/18 Time of Evaluation: 07:09 - Subjective Subjective: 57 y/o F evaluated and examined by bedside. Pt reports not feeling well. Pt reports that her SOB has aggravated since moving to her current room whih is colder. Pt afebrile, tolerating PO with no acute events overnight. Pt able to talk. Objective - Vital Signs/Intake and Output Vital Signs (last 24 hours): Temp Pulse Resp BP Pulse Ox 97.8 F 88 20 110/71 99 02/23/18 08:12 02/23/18 08:12 02/23/18 08:12 02/23/18 08:12 02/23/18 08:12 - Medications Medications: Current Medications Acetazolamide (Diamox Sequels 500 Mg Sr Cap) 500 mg PO Q12 [facility] Last Admin: 02/23/18 09:17 Dose: 500 mg Albuterol Sulfate (Albuterol 0.083% Inhal Caridad (2.5 Mg/3 Ml) Ud) 2.5 mg INH RQ4 PRN PRN Reason: Shortness of Breath Albuterol/Ipratropium (Duoneb 3 Mg/0.5 Mg (3 Ml) Ud) 3 ml INH RQID DENISSE Alprazolam (Xanax) 0.25 mg PO Q8 PRN PRN Reason: Anxiety Last Admin: 02/22/18 23:07 Dose: 0.25 mg Cholecalciferol (Vitamin D) 1,000 intlu PO DAILY DENISSE Last Admin: 02/23/18 09:17 Dose: 1,000 intlu Enoxaparin Sodium (Lovenox) 40 mg SC DAILY DENISSE PRN Reason: Protocol Last Admin: 02/23/18 09:18 Dose: 40 mg Hydrocortisone Sodium Succinate (Solu-Cortef) 100 mg IV Q12 DENISSE Last Admin: 02/22/18 20:29 Dose: 100 mg Azithromycin 500 mg/ Sodium (Chloride) 250 mls @ 250 mls/hr IVPB DAILY DENISSE PRN Reason: Protocol Stop: 02/23/18 11:00 Last Admin: 02/22/18 08:20 Dose: 250 mls/hr Ceftriaxone Sodium 1 gm/ (Sodium Chloride) 100 mls @ 100 mls/hr IVPB DAILY DENISSE PRN Reason: Protocol Last Admin: 02/22/18 08:20 Dose: 100 mls/hr Loratadine (Claritin) 10 mg PO DAILY [facility] Last Admin: 02/23/18 09:17 Dose: 10 mg Oxycodone/Acetaminophen (Percocet 5/325 Mg Tab) 1 tab PO Q6 PRN PRN Reason: Pain, moderate (4-7) Stop: 02/23/18 22:27 Last Admin: 02/22/18 20:20 Dose: 1 tab Pantoprazole Sodium (Protonix Ec Tab) 40 mg PO DAILY [facility] Last Admin: 02/23/18 09:17 Dose: 40 mg Promethazine HCl/Dextromethorphan (Phenergan Dm Syrup) 10 ml PO Q6 PRN PRN Reason: Cough Last Admin: 02/22/18 09:55 Dose: 10 ml - Labs Labs: 02/23/18 05:25 02/23/18 05:25 PT 11.0 Seconds (9.8-13.1) 02/20/18 17:30 INR 1.0 (0.9-1.2) 02/20/18 17:30 APTT 28.5 Seconds (25.6-37.1) 02/20/18 17:30 - Constitutional Appears: No Acute Distress - Head Exam Head Exam: NORMAL INSPECTION - Eye Exam Eye Exam: EOMI - ENT Exam ENT Exam: Mucous Membranes Moist, Normal Exam - Neck Exam Neck Exam: Full ROM. absent: Meningismus - Respiratory Exam Respiratory Exam: NORMAL BREATHING PATTERN. absent: Rhonchi, Wheezes - Cardiovascular Exam Cardiovascular Exam: +S1, +S2 - GI/Abdominal Exam GI & Abdominal Exam: Soft, Normal Bowel Sounds. absent: Guarding, Rigid, Tenderness, Organomegaly - Extremities Exam Extremities Exam: Full ROM. 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 --Pt presented to the ED on 02/20/18 due to 6 days of chills and worsening SOB, not responsive to home therapies. CXR shows severe bullous centrilobular and panlobular emphysematous changes with upper lobe more severely affected than the lower lobes. patient is PLAN: Possible Pneumonia/Advanced COPD/Lymphangioleiomyomatosis -Afebrile -Procalcitonin < 0.05 x2. -Geotechnical Engineer, Dr. Interiano, recommendations appreciated. -Azithromycin stopped as per pulmonology. -Continue IV Ceftriaxone, Acetazolamide 500mg, DuoNEB Q4, Hydrocortisone 100 mg IV Q12 -Roflumilast 250mcg daily to be started tomorrow as per pulmonology. -F/U U/A. Chronic Pain syndrome -Continue Percocet, -Start Sertraline 25 mg po qhs -Physical therapy consult ordered. Anxiety -C/w Xanax Diet -regular diet DVT prophylaxis -Lovenox 40 mg sc daily <Juan Meza - Last Filed: 02/24/18 06:46> Objective - Vital Signs/Intake and Output Vital Signs (last 24 hours): Temp Pulse Resp BP Pulse Ox 97.8 F 88 20 110/71 99 02/23/18 08:12 02/23/18 08:12 02/23/18 08:12 02/23/18 08:12 02/23/18 08:12 - Labs Labs: 02/23/18 05:25 02/23/18 05:25 PT 11.0 Seconds (9.8-13.1) 02/20/18 17:30 INR 1.0 (0.9-1.2) 02/20/18 17:30 APTT 28.5 Seconds (25.6-37.1) 02/20/18 17:30 Attending/Attestation - Attestation I have personally seen and examined this patient.: Yes I have fully participated in the care of the patient.: Yes I have reviewed all pertinent clinical information, including history, physical exam and plan: Yes
[2018-02-23] MEDS: Azithromycin 500 MG in Sodium Chloride 0.9% 250 ML IVPB SCH (10:24)
[2018-02-23] MEDS: Promethazine DM 12.5 mg-30 mg/10 ml Syrup PO PRN (10:24)
[2018-02-23] MEDS: Oxycodone/Acetaminophen 5/325 mg Tab PO PRN (10:51)
[2018-02-23] MEDS ORDERED: Albuterol-Ipratrop 3 mg / 0.5 (3 ml) UD INH STA (11:17)
[2018-02-23] MEDS: Albuterol 0.083% Inhal Sol (2.5 mg/3 mL) UD INH PRN ×2 (11:29→14:59)
--- NOTE | 2018-02-23 11:55 | PCM.RRT ---
WASTE HAND Nurse Assessment - Ventilator Settings Peak Flow: 100 I.Reason for WASTE HAND - A) Acute Change in Patient: Subjective: WASTE HAND Call Time: 11:11 am WASTE HAND Arrival Time: 11:12 am WASTE HAND Location: Med-Surg 6th floor 652-1 S: WASTE HAND was called by RN on a 57 y/o F due to severe SOB. Pt reports feeling more SOB since move to her new room which is colder. O: --Vital Signs: BP 124//72, HR 111, Sat 92%, Temp 98degF. --Physical Exam: >GEN: Pt is alert, awake, oriented x3, anxious looking, responsive verbally, with O2 running via NC at 2 L/min. >HEENT: Attraumatic, oropharynx normal. >Neck: normal ROM, non-tender, no LAD. >CV: S1 and S2 present, regular rhythm. >Lungs: CTAB. No wheezing, rales or crackles. >Extremities: No cyanosis or edema. WASTE HAND Interventions: -Oxygen supply by nasal canula increased to 3L/min. -Duoneb 1x STAT ordered. Repeated VS: 132/88, HR 108, Sat 93%. -Pt at her baseline, feels better. Pt declines anti-depression/anxiety medication or mental health professional for her chronic anxiety. -Pumonologist Dr Interiano notified. A/P: 57 y/o F with a PMHx of advanced stage COPD, former smoker and Lymphangioleiomyomatosis admitted for COPD exacerbation and possible pneumonia, c/o aggravating dyspnea. --Duoneb in progress. --C/w Duoneb Q4 --Considering transferring pt to another room. WASTE HAND End Time: 11:20 WASTE HAND Leader: Dr Love WASTE HAND Residents: Dr Taylor PGY-1, Dr Gates PGY-3.
[2018-02-23] MEDS ORDERED: Albuterol-Ipratrop 3 mg / 0.5 (3 ml) UD INH SCH (12:00)
--- NOTE | 2018-02-23 15:55 | CP.PCM.DIS ---
Provider - Provider Date of Admission: 02/20/18 19:26 Attending physician: Juan Meza MD Primary care physician: Dr. Araujo. Consults: Pulmonology: Dr Interiano. Time Spent in preparation of Discharge (in minutes): 25 Diagnosis - Discharge Diagnosis (1) COPD exacerbation Status: Acute Priority: High Comment: -Pt to move to TCU for rehabilitation program. (2) Respiratory distress Status: Acute Hospital Course - Lab Results Lab Results: Micro Results 02/20/18 17:30 Blood-Venous Blood Culture - Preliminary NO GROWTH AFTER 48 HOURS 02/20/18 17:15 Blood-Venous Blood Culture - Preliminary NO GROWTH AFTER 48 HOURS Most Recent Lab Values WBC 10.6 K/uL (4.8-10.8) 02/23/18 05:25 RBC 4.23 Mil/uL (3.80-5.20) 02/23/18 05:25 Hgb 12.6 g/dL (12.0-16.0) 02/23/18 05:25 Hct 38.8 % (34.0-47.0) 02/23/18 05:25 MCV 91.8 fl (81.0-99.0) 02/23/18 05:25 MCH 29.8 pg (27.0-31.0) 02/23/18 05:25 MCHC 32.5 g/dL (33.0-37.0) L 02/23/18 05:25 RDW 14.0 % (11.5-14.5) 02/23/18 05:25 Plt Count 301 K/uL (130-400) 02/23/18 05:25 MPV 8.2 fl (7.2-11.7) 02/23/18 05:25 Neut % (Auto) 82.5 % (50.0-75.0) H 02/23/18 05:25 Lymph % (Auto) 11.8 % (20.0-40.0) L 02/23/18 05:25 [place] % (Auto) 5.6 % (0.0-10.0) 02/23/18 05:25 Eos % (Auto) 0.0 % (0.0-4.0) 02/23/18 05:25 Baso % (Auto) 0.1 % (0.0-2.0) 02/23/18 05:25 Neut # (Auto) 8.8 K/uL (1.8-7.0) H 02/23/18 05:25 Lymph # (Auto) 1.3 K/uL (1.0-4.3) 02/23/18 05:25 [place] # (Auto) 0.6 K/uL (0.0-0.8) 02/23/18 05:25 Eos # (Auto) 0.0 K/uL (0.0-0.7) 02/23/18 05:25 Baso # (Auto) 0.0 K/uL (0.0-0.2) 02/23/18 05:25 PT 11.0 Seconds (9.8-13.1) 02/20/18 17:30 INR 1.0 (0.9-1.2) 02/20/18 17:30 APTT 28.5 Seconds (25.6-37.1) 02/20/18 17:30 pCO2 75 mm/Hg (35-45) H* 02/20/18 15:50 pO2 26 mm/Hg (80-100) L* 02/20/18 15:50 HCO3 30.1 mmol/L (21-28) H 02/20/18 15:50 ABG pH 7.31 (7.35-7.45) L 02/20/18 15:50 ABG Total CO2 40.1 mmol/L (22-28) H 02/20/18 15:50 ABG O2 Saturation 49.0 % (95-98) L 02/20/18 15:50 ABG Base Excess 8.4 mmol/L (-2.0-3.0) H 02/20/18 15:50 Contreras Test Yes 02/20/18 15:50 ABG Potassium 4.0 mmol/L (3.6-5.2) 02/20/18 15:50 Sodium 141.0 mmol/L (132-148) 02/20/18 15:50 Chloride 105.0 mmol/L (98-107) 02/20/18 15:50 Glucose 101 mg/dL (65-105) 02/20/18 15:50 Lactate 0.7 mmol/L (0.7-2.1) 02/20/18 15:50 FiO2 21.0 % 02/20/18 15:50 Crit Value Called To Herberth luevano mrlyn 02/20/18 15:50 Crit Value Called By 15 02/20/18 15:50 Crit Value Read Back Y 02/20/18 15:50 Blood Gas Notified Time 17402/20/18 15:50 Sodium 146 mmol/l (132-148) 02/23/18 05:25 Potassium 3.3 MMOL/L (3.6-5.0) L 02/23/18 05:25 Chloride 105 mmol/L (98-107) 02/23/18 05:25 Carbon Dioxide 28 mmol/L (22-30) 02/23/18 05:25 Anion Gap 16 (10-20) 02/23/18 05:25 BUN 17 mg/dl (7-17) 02/23/18 05:25 Creatinine 0.5 mg/dl (0.7-1.2) L 02/23/18 05:25 Est GFR ( Amer) > 60 02/23/18 05:25 Est GFR (Non-Af Amer) > 60 02/23/18 05:25 Random Glucose 135 mg/dL (65-105) H 02/23/18 05:25 Calcium 9.2 mg/dL (8.4-10.2) 02/23/18 05:25 Total Bilirubin 0.3 mg/dl (0.2-1.3) 02/23/18 05:25 AST 18 U/L (14-36) 02/23/18 05:25 ALT 42 U/L (9-52) 02/23/18 05:25 Alkaline Phosphatase 60 U/L (38-126) 02/23/18 05:25 Total Protein 6.3 G/DL (6.3-8.2) 02/23/18 05:25 Albumin 3.6 g/dL (3.5-5.0) 02/23/18 05:25 Globulin 2.8 gm/dL (2.2-3.9) 02/23/18 05:25 Albumin/Globulin Ratio 1.3 (1.0-2.1) 02/23/18 05:25 Procalcitonin < 0.05 NG/ML (0.19-0.49) L 02/21/18 05:30 Arterial Blood Potassium 4.0 mmol/L (3.6-5.2) 02/20/18 15:50 Influenza Typ A,B (EIA) Negative for flu a/b (NEGATIVE) 02/20/18 16:55 - Hospital Course Hospital Course: 57 y/o F with a PMHx of advanced COPD/Lymphangioleiomyomatosis was admitted for suspicion of CAP and at high risk for pulmonary complications. -CXR shows severe bullous centrilobular and panlobular emphysematous changes with upper lobe more severely affected than the lower lobes. -Pt is discharged to TCU for IV antibiotic therapy and PT rehabilitation program. - Date & Time of H&P Date of H&P: 02/20/18 Time of H&P: 19:27 Discharge Exam - Head Exam Head Exam: NORMAL INSPECTION - Eye Exam Eye Exam: EOMI - ENT Exam ENT Exam: Mucous Membranes Moist - Neck Exam Neck exam: Lymphadenopathy - Respiratory Exam Respiratory Exam: Decreased Breath Sounds, NORMAL BREATHING PATTERN. absent: Rales, Rhonchi, Wheezes - Cardiovascular Exam Cardiovascular Exam: REGULAR RHYTHM, +S1, +S2 - GI/Abdominal Exam GI & Abdominal Exam: Normal Bowel Sounds, Unremarkable. absent: Guarding - Neurological Exam Neurological exam: Alert, Oriented x3 - Psychiatric Exam Psychiatric exam: Normal Affect, Normal Mood Discharge Plan - Follow Up Plan Condition: GOOD Disposition: REHAB FACILITY/REHAB UNIT Instructions: Adult Respiratory Distress Syndrome, Pneumonia, Adult (DC), Exacerbation of COPD (DC), Breathing Exercises
[2018-02-24] MEDS ORDERED: DALIRESP 250 MCG PO SCH (09:00)
[2018-02-24 10:35] LABS: SQUAMOUS EPITHIAL < 1 /hpf (0-5); URINE BACTERIA RARE (<OCC); URINE BILIRUBIN NEGATIVE (NEGATIVE); URINE BLOOD NEGATIVE (NEGATIVE); URINE CLARITY CLOUDY (Clear); URINE COLOR YELLOW (YELLOW); URINE GLUCOSE (UA) NEG (Normal); URINE LEUKOCYTE ESTERASE NEG Leu/uL (Negative); URINE PROTEIN NEGATIVE (NEGATIVE); URINE URIC ACID CRYSTALS RARE /hpf (<OCC); URINE UROBILINOGEN 0.2-1.0 mg/dL (0.2-1.0)
== END 2018-02-23 15:48 | DRG 190 ==
LOC: H.ER 15:21 → H.ERHOLD 19:26 → H.TEL 21:54 → H.MEDSURG1 02-22 17:50
PROVIDERS: ADMIT Family Medicine; ATTEND Family Medicine
PROC: 3E0F73Z Introduction of Anti-inflammatory into Respiratory Tract, Via Natural or Artificial Opening (ICD-10-PCS; principal; 2018-02-20)
PROC: 3E0F7GC Introduction of Other Therapeutic Substance into Respiratory Tract, Via Natural or Artificial Opening (ICD-10-PCS; 2018-02-20)
DX: J44.1 Chronic obstructive pulmonary disease with (acute) exacerbation (principal); J96.21 Acute and chronic respiratory failure with hypoxia; J96.22 Acute and chronic respiratory failure with hypercapnia; J18.9 Pneumonia, unspecified organism; J84.81 Lymphangioleiomyomatosis; J44.0 Chronic obstructive pulmonary disease with (acute) lower respiratory infection; G89.4 Chronic pain syndrome; F06.31 Mood disorder due to known physiological condition with depressive features; F41.9 Anxiety disorder, unspecified; E66.9 Obesity, unspecified; Z99.81 Dependence on supplemental oxygen; Z68.31 Body mass index [BMI] 31.0-31.9, adult; Z87.891 Personal history of nicotine dependence; Z87.440 Personal history of urinary (tract) infections; Z88.2 Allergy status to sulfonamides

== ENCOUNTER 2018-02-23 15:01 | Inpatient (IN) | payer OTHER, MEDICAID ==
[2018-02-23 15:58] VITALS: BMI 32.2
[2018-02-23] MEDS: Albuterol-Ipratrop 3 mg / 0.5 (3 ml) UD INH SCH ×2 (16:11→19:25)
[2018-02-23] MEDS: Oxycodone/Acetaminophen 5/325 mg Tab PO PRN (16:58)
[2018-02-23] MEDS: acetaZOLAMIDE 500 mg SR Cap PO SCH (21:08)
[2018-02-23] MEDS: Albuterol 0.083% Inhal Sol (2.5 mg/3 mL) UD INH PRN (22:30)
[2018-02-24] MEDS: Oxycodone/Acetaminophen 5/325 mg Tab PO PRN ×3 (04:18→17:46)
[2018-02-24] MEDS: Promethazine DM 12.5 mg-30 mg/10 ml Syrup PO PRN ×2 (04:32→23:06)
[2018-02-24] MEDS: Albuterol 0.083% Inhal Sol (2.5 mg/3 mL) UD INH PRN (04:41)
[2018-02-24 07:23] LABS: BASO % 0.1 % (0.0-2.0); HEMOGLOBIN 11.3 g/dL (12.0-16.0); LYMPH # 1.3 K/uL (1.0-4.3); LYMPH % 11.8 % (20.0-40.0); MEAN CORPUSCULAR HEMOGLOBIN 29.5 pg (27.0-31.0); MEAN CORPUSCULAR HGB CONC 32.4 g/dL (33.0-37.0); MEAN PLATELET VOLUME 7.9 fl (7.2-11.7); MONO # 1.1 K/uL (0.0-0.8); MONO % 10.3 % (0.0-10.0); NEUT # 8.6 K/uL (1.8-7.0); NEUT % 77.8 % (50.0-75.0); RBC 3.83 Mil/uL (3.80-5.20); RED CELL DISTRIBUTION WIDTH 13.8 % (11.5-14.5); WHITE BLOOD COUNT 11.1 K/uL (4.8-10.8)
[2018-02-24 07:24] LABS: BLOOD UREA NITROGEN 19 mg/dl (7-17); CALCIUM 8.9 mg/dL (8.4-10.2); GFR AFRICAN-AMERICAN > 60; GFR NON-AFRICAN AMERICAN > 60
[2018-02-24] MEDS: acetaZOLAMIDE 500 mg SR Cap PO SCH ×2 (08:24→23:06)
[2018-02-24] MEDS: Pantoprazole 40 mg EC Tab PO SCH (08:24)
[2018-02-24] MEDS: Cholecalciferol 1,000 INTLU TAB PO SCH (08:25)
[2018-02-24] MEDS: Enoxaparin 40 mg Syringe SC SCH (08:25)
[2018-02-24] MEDS: Albuterol-Ipratrop 3 mg / 0.5 (3 ml) UD INH SCH ×4 (08:32→19:02)
[2018-02-24] MEDS ORDERED: Potassium Chloride 20 mEq ER Tab PO ONE (09:08)
--- NOTE | 2018-02-24 10:05 | CP.PCM.HP ---
<Alton Taylor - Last Filed: 02/24/18 17:27> History of Present Illness - History of Present Illness History of Present Illness: 57 y/o F with a PMHx of JIMENEZ, COPD, recurrent urinary tract infections, endometriosis and uterine fibroids and Depression admitted for subacute rehabilitation. Pt is under chronic respiratory therapy, and admits to worsening feelings of depression. Pt was admitted a few days ago to our hospital for evaluation of possible pneumonia, as pt is at high risk for complications. Today, pt reports feeling fine, at her baseline, endorses chills and cough that is intermittent through the day and productive at times with thick white/clear sputum. PMD: Dr Henson. Mixer And Scaler: Dr. Interiano. Allergies: Sulfa drugs result in generalized rash. Medications: as listed below. PMHx: JIMENEZ, COPD, recurrent urinary tract infections, endometriosis and uterine fibroids and Depression PSHx: Video-assisted thoracoscopy and lung biopsy because of recurrent spontaneous pneumothorax, D&C for uterine fibroids, benign breast cyst removal. Present on Admission - Present on Admission Any Indicators Present on Admission: No Review of Systems - Constitutional Constitutional: Chills. absent: Fever - EENT Eyes: absent: Change in Vision - Cardiovascular Cardiovascular: absent: Chest Pain, Chest Pain at Rest, Leg Ulcers - Respiratory Respiratory: Cough. absent: Hemoptysis - Gastrointestinal Gastrointestinal: absent: Abdominal Pain, Belching, Bloating, Constipation, Diarrhea, Vomiting - Genitourinary Genitourinary: absent: Change in Urinary Stream, Dysuria, Flank Pain - Neurological Neurological: absent: Abnormal Hearing, Abnormal Movements, Burning Sensations, Confusion - Psychiatric Psychiatric: Depression Past Patient History - Infectious Disease Hx of Infectious Diseases: None - Past Medical History & Family History Past Medical History?: Yes - Past Social History Smoking Status: Former Smoker - CARDIAC Hx Cardiac Disorders: No - PULMONARY Hx Chronic Obstructive Pulmonary Disease (COPD): Yes 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 - NEUROLOGICAL Hx Neurological Disorder: No - HEENT Hx HEENT Problems: Yes Other/Comment: eye glasses - RENAL Hx Chronic Kidney Disease: No - ENDOCRINE/METABOLIC Hx Endocrine Disorders: No Hx Hypothyroidism: No - HEMATOLOGICAL/ONCOLOGICAL Hx Blood Disorders: No Hx AIDS: No Hx Human Immunodeficiency Virus (HIV): No - INTEGUMENTARY Hx Dermatological Problems: No - MUSCULOSKELETAL/RHEUMATOLOGICAL Hx Musculoskeletal Disorders: Yes Hx Back Pain: Yes Hx Falls: No Hx Rheumatoid Arthritis: No - GASTROINTESTINAL Hx Gastrointestinal Disorders: No - GENITOURINARY/GYNECOLOGICAL Hx Urinary Tract Infection: Yes Other/Comment: endometriosis,uterine fibroids - PSYCHIATRIC Hx Anxiety: Yes Hx Depression: Yes Hx Substance Use: No - SURGICAL HISTORY Hx Pulmonary Surgery: Yes (VATS lung biopsy and pleurodesis) Other/Comment: breast cyst removal (benign), D&C for uterine fibroids, chest tube x2 (spontaneous pneumothorax) with lung biopsy done on second episode. - ANESTHESIA Hx Anesthesia: Yes Hx Anesthesia Reactions: No Hx Malignant Hyperthermia: No Meds Allergies/Adverse Reactions: Allergies Allergy/AdvReac Type Severity Reaction Status Date / Time Sulfa (Sulfonamide Allergy RASH Verified 02/23/18 15:18 Antibiotics) Physical Exam - Constitutional Appears: No Acute Distress - Head Exam Head Exam: ATRAUMATIC, NORMAL INSPECTION - Eye Exam Eye Exam: EOMI, Normal appearance - ENT Exam ENT Exam: Mucous Membranes Moist - Neck Exam Neck exam: Positive for: Normal Inspection - Respiratory Exam Respiratory Exam: Decreased Breath Sounds, NORMAL BREATHING PATTERN. absent: Chest Wall Tenderness, Wheezes - Cardiovascular Exam Cardiovascular Exam: REGULAR RHYTHM, +S1, +S2 - GI/Abdominal Exam GI & Abdominal Exam: Normal Bowel Sounds, Soft. absent: Diminished Bowel Sounds , Distended, Firm, Guarding, Hernia - Neurological Exam Neurological exam: Alert, Oriented x3 Results - Vital Signs Recent Vital Signs: Last Vital Signs Temp 97.8 F 02/24/18 07:52 Pulse 95 H 02/24/18 07:52 Resp 18 02/24/18 07:52 BP 128/77 02/24/18 07:52 Pulse Ox 99 02/24/18 07:52 - Labs Result Diagrams: 02/24/18 06:40 02/24/18 06:40 Labs: Laboratory Results - last 24 hr 02/24/18 02/24/18 06:40 06:40 WBC 11.1 H RBC 3.83 Hgb 11.3 L Hct 34.9 MCV 91.0 MCH 29.5 MCHC 32.4 L RDW 13.8 Plt Count 283 MPV 7.9 Neut % (Auto) 77.8 H Lymph % (Auto) 11.8 L [place] % (Auto) 10.3 H Eos % (Auto) 0.0 Baso % (Auto) 0.1 Neut # (Auto) 8.6 H Lymph # (Auto) 1.3 [place] # (Auto) 1.1 H Eos # (Auto) 0.0 Baso # (Auto) 0.0 Sodium 145 Potassium 3.2 L Chloride 104 Carbon Dioxide 32 H Anion Gap 12 BUN 19 H Creatinine 0.5 L Est GFR ( Amer) > 60 Est GFR (Non-Af Amer) > 60 Random Glucose 114 H Calcium 8.9 Assessment & Plan - Assessment and Plan (Free Text) Assessment: 57 y/o F with a PMHx of 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 PLAN: Advanced COPD/Lymphangioleiomyomatosis -Afebrile -Mixer And Scaler, Dr. Interiano, recommendations appreciated. -Continue IV Ceftriaxone, Acetazolamide 500mg, DuoNEB Q4, Hydrocortisone 100 mg IV Q12 -Roflumilast 250mcg daily, pt's own medication as per pulmonology. Chronic Pain syndrome -Continue Percocet, -Start Sertraline 25 mg po qhs -Physical therapy consult ordered. Anxiety -Xanax PRN Diet -regular diet DVT prophylaxis -Lovenox 40 mg sc daily - Date & Time Date: 02/24/18 Time: 07:15 <Juan Meza - Last Filed: 02/27/18 06:59> Results - Vital Signs Recent Vital Signs: Last Vital Signs Temp 98.1 F 02/26/18 20:21 Pulse 102 H 02/26/18 20:21 Resp 20 02/26/18 20:21 BP 132/65 02/26/18 20:21 Pulse Ox 97 02/26/18 20:21 - Labs Result Diagrams: 02/24/18 06:40 02/27/18 05:45 Labs: Laboratory Results - last 24 hr 02/27/18 05:45 Sodium 145 Potassium 3.5 L Chloride 104 Carbon Dioxide 35 H Anion Gap 10 BUN 21 H Creatinine 0.6 L Est GFR ( Amer) > 60 Est GFR (Non-Af Amer) > 60 Random Glucose 121 H Calcium 9.1 Attending/Attestation - Attestation I have personally seen and examined this patient.: Yes I have fully participated in the care of the patient.: Yes I have reviewed all pertinent clinical information: Yes
--- NOTE | 2018-02-24 10:25 | CP.PCM.CON ---
Past Patient History - Infectious Disease Hx of Infectious Diseases: None - Past Medical History & Family History Past Medical History?: Yes - Past Social History Smoking Status: Former Smoker - CARDIAC Hx Cardiac Disorders: No - PULMONARY Hx Chronic Obstructive Pulmonary Disease (COPD): Yes 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 - NEUROLOGICAL Hx Neurological Disorder: No - HEENT Hx HEENT Problems: Yes Other/Comment: eye glasses - RENAL Hx Chronic Kidney Disease: No - ENDOCRINE/METABOLIC Hx Endocrine Disorders: No Hx Hypothyroidism: No - HEMATOLOGICAL/ONCOLOGICAL Hx Blood Disorders: No Hx AIDS: No Hx Human Immunodeficiency Virus (HIV): No - INTEGUMENTARY Hx Dermatological Problems: No - MUSCULOSKELETAL/RHEUMATOLOGICAL Hx Musculoskeletal Disorders: Yes Hx Back Pain: Yes Hx Falls: No Hx Rheumatoid Arthritis: No - GASTROINTESTINAL Hx Gastrointestinal Disorders: No - GENITOURINARY/GYNECOLOGICAL Hx Urinary Tract Infection: Yes Other/Comment: endometriosis,uterine fibroids - PSYCHIATRIC Hx Anxiety: Yes Hx Depression: Yes Hx Substance Use: No - SURGICAL HISTORY Hx Pulmonary Surgery: Yes (VATS lung biopsy and pleurodesis) Other/Comment: breast cyst removal (benign), D&C for uterine fibroids, chest tube x2 (spontaneous pneumothorax) with lung biopsy done on second episode. - ANESTHESIA Hx Anesthesia: Yes Hx Anesthesia Reactions: No Hx Malignant Hyperthermia: No Meds Allergies/Adverse Reactions: Allergies Allergy/AdvReac Type Severity Reaction Status Date / Time Sulfa (Sulfonamide Allergy RASH Verified 02/23/18 15:18 Antibiotics) - Medications Medications: Current Medications Acetazolamide (Diamox Sequels 500 Mg Sr Cap) 500 mg PO Q12 DENISSE Last Admin: 02/24/18 08:24 Dose: 500 mg Albuterol (Ventolin Hfa 90 Mcg/Actuation (8 G)) 2 puff IH RQ4 PRN PRN Reason: Shortness of Breath Albuterol Sulfate (Albuterol 0.083% Inhal Caridad (2.5 Mg/3 Ml) Ud) 2.5 mg INH RQ4 PRN PRN Reason: Shortness of Breath Last Admin: 02/24/18 04:41 Dose: 2.5 mg Albuterol/Ipratropium (Duoneb 3 Mg/0.5 Mg (3 Ml) Ud) 3 ml INH RQID DENISSE Last Admin: 02/24/18 08:32 Dose: 3 ml Alprazolam (Xanax) 0.25 mg PO Q8 PRN PRN Reason: Anxiety Last Admin: 02/24/18 04:19 Dose: 0.25 mg Cholecalciferol (Vitamin D) 1,000 intlu PO DAILY [facility] Last Admin: 02/24/18 08:25 Dose: 1,000 intlu Enoxaparin Sodium (Lovenox) 40 mg SC DAILY [facility] PRN Reason: Protocol Last Admin: 02/24/18 08:25 Dose: 40 mg Home Med (Patient's Own Medication) 1 unit PO DAILY [facility] Hydrocortisone Sodium Succinate (Solu-Cortef) 100 mg IV Q12 [facility] Last Admin: 02/24/18 08:25 Dose: 100 mg Ceftriaxone Sodium 1 gm/ (Sodium Chloride) 100 mls @ 100 mls/hr IVPB DAILY@ 1700 [facility] PRN Reason: Protocol Loratadine (Claritin) 10 mg PO DAILY [facility] Last Admin: 02/24/18 08:24 Dose: 10 mg Oxycodone/Acetaminophen (Percocet 5/325 Mg Tab) 1 tab PO Q6 PRN PRN Reason: Pain, moderate (4-7) Stop: 02/26/18 16:42 Last Admin: 02/24/18 09:56 Dose: 1 tab Pantoprazole Sodium (Protonix Ec Tab) 40 mg PO DAILY [facility] Last Admin: 02/24/18 08:24 Dose: 40 mg Promethazine HCl/Dextromethorphan (Phenergan Dm Syrup) 10 ml PO Q6 PRN PRN Reason: Cough Last Admin: 02/24/18 04:32 Dose: 10 ml Results - Vital Signs Recent Vital Signs: Last Vital Signs Temp 97.8 F 02/24/18 07:52 Pulse 95 H 02/24/18 07:52 Resp 18 02/24/18 07:52 BP 128/77 02/24/18 07:52 Pulse Ox 99 02/24/18 07:52 - Labs Result Diagrams: 02/24/18 06:40 02/24/18 06:40 Labs: Laboratory Results - last 24 hr 02/24/18 02/24/18 06:40 06:40 WBC 11.1 H RBC 3.83 Hgb 11.3 L Hct 34.9 MCV 91.0 MCH 29.5 MCHC 32.4 L RDW 13.8 Plt Count 283 MPV 7.9 Neut % (Auto) 77.8 H Lymph % (Auto) 11.8 L [place] % (Auto) 10.3 H Eos % (Auto) 0.0 Baso % (Auto) 0.1 Neut # (Auto) 8.6 H Lymph # (Auto) 1.3 [place] # (Auto) 1.1 H Eos # (Auto) 0.0 Baso # (Auto) 0.0 Sodium 145 Potassium 3.2 L Chloride 104 Carbon Dioxide 32 H Anion Gap 12 BUN 19 H Creatinine 0.5 L Est GFR ( Amer) > 60 Est GFR (Non-Af Amer) > 60 Random Glucose 114 H Calcium 8.9 Assessment & Plan (1) Lymphangioleiomyomatosis Status: Chronic Priority: High (2) Depressed mood Status: Acute Priority: High (3) COPD (chronic obstructive pulmonary disease) Status: Chronic Priority: High (4) Chronic hypercapnic respiratory failure Status: Chronic Priority: High - Date & Time Date: 02/24/18 Time: 10:24
[2018-02-24] MEDS: DALIRESP 250 MCG PO SCH (10:47)
--- NOTE | 2018-02-24 11:36 | CP.PCM.CON ---
History of Present Illness - History of Present Illness History of Present Illness: pt is a 57 year old female known to the creative services writer from a previous rehab admission at . Pt spoke of readmission due to fatigue. See medical record for complete medical history and list of medications. Social History: pt lives alone. She never and has no children. Pt reported having a number of friends who assist her in the home. She spoke of frustration with her homemakers/providers and their limitations. Pt is negative for a history of alcohol/drug use. Pt positive for past counseling. She reported an inability to participate in counseling at present due to physical limitations. Pt spoke of sources of satisfaction in the home and sources of anger. MSE: Pt alert, oriented x3. relevant/coherent, no psychosis affect constricted, mood depressed/irritable, no si no hi ideation. plan: Continued Sup therapy Dx Depression recurrent Past Patient History - Infectious Disease Hx of Infectious Diseases: None - Past Medical History & Family History Past Medical History?: Yes - Past Social History Smoking Status: Former Smoker - CARDIAC Hx Cardiac Disorders: No - PULMONARY Hx Chronic Obstructive Pulmonary Disease (COPD): Yes 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 - NEUROLOGICAL Hx Neurological Disorder: No - HEENT Hx HEENT Problems: Yes Other/Comment: eye glasses - RENAL Hx Chronic Kidney Disease: No - ENDOCRINE/METABOLIC Hx Endocrine Disorders: No Hx Hypothyroidism: No - HEMATOLOGICAL/ONCOLOGICAL Hx Blood Disorders: No Hx AIDS: No Hx Human Immunodeficiency Virus (HIV): No - INTEGUMENTARY Hx Dermatological Problems: No - MUSCULOSKELETAL/RHEUMATOLOGICAL Hx Musculoskeletal Disorders: Yes Hx Back Pain: Yes Hx Falls: No Hx Rheumatoid Arthritis: No - GASTROINTESTINAL Hx Gastrointestinal Disorders: No - GENITOURINARY/GYNECOLOGICAL Hx Urinary Tract Infection: Yes Other/Comment: endometriosis,uterine fibroids - PSYCHIATRIC Hx Anxiety: Yes Hx Depression: Yes Hx Substance Use: No - SURGICAL HISTORY Hx Pulmonary Surgery: Yes (VATS lung biopsy and pleurodesis) Other/Comment: breast cyst removal (benign), D&C for uterine fibroids, chest tube x2 (spontaneous pneumothorax) with lung biopsy done on second episode. - ANESTHESIA Hx Anesthesia: Yes Hx Anesthesia Reactions: No Hx Malignant Hyperthermia: No Meds Allergies/Adverse Reactions: Allergies Allergy/AdvReac Type Severity Reaction Status Date / Time Sulfa (Sulfonamide Allergy RASH Verified 02/23/18 15:18 Antibiotics) - Medications Medications: Current Medications Acetazolamide (Diamox Sequels 500 Mg Sr Cap) 500 mg PO Q12 [facility] Last Admin: 02/24/18 08:24 Dose: 500 mg Albuterol (Ventolin Hfa 90 Mcg/Actuation (8 G)) 2 puff IH RQ4 PRN PRN Reason: Shortness of Breath Albuterol Sulfate (Albuterol 0.083% Inhal Caridad (2.5 Mg/3 Ml) Ud) 2.5 mg INH RQ4 PRN PRN Reason: Shortness of Breath Last Admin: 02/24/18 04:41 Dose: 2.5 mg Albuterol/Ipratropium (Duoneb 3 Mg/0.5 Mg (3 Ml) Ud) 3 ml INH RQID [facility] Last Admin: 02/24/18 08:32 Dose: 3 ml Alprazolam (Xanax) 0.25 mg PO Q8 PRN PRN Reason: Anxiety Last Admin: 02/24/18 04:19 Dose: 0.25 mg Cholecalciferol (Vitamin D) 1,000 intlu PO DAILY [facility] Last Admin: 02/24/18 08:25 Dose: 1,000 intlu Enoxaparin Sodium (Lovenox) 40 mg SC DAILY [facility] PRN Reason: Protocol Last Admin: 02/24/18 08:25 Dose: 40 mg Home Med (Patient's Own Medication) 1 unit PO DAILY [facility] Last Admin: 02/24/18 10:47 Dose: 1 unit Hydrocortisone Sodium Succinate (Solu-Cortef) 100 mg IV Q12 [facility] Last Admin: 02/24/18 08:25 Dose: 100 mg Ceftriaxone Sodium 1 gm/ (Sodium Chloride) 100 mls @ 100 mls/hr IVPB DAILY@ 1700 [facility] PRN Reason: Protocol Loratadine (Claritin) 10 mg PO DAILY [facility] Last Admin: 02/24/18 08:24 Dose: 10 mg Oxycodone/Acetaminophen (Percocet 5/325 Mg Tab) 1 tab PO Q6 PRN PRN Reason: Pain, moderate (4-7) Stop: 02/26/18 16:42 Last Admin: 02/24/18 09:56 Dose: 1 tab Pantoprazole Sodium (Protonix Ec Tab) 40 mg PO DAILY [facility] Last Admin: 02/24/18 08:24 Dose: 40 mg Promethazine HCl/Dextromethorphan (Phenergan Dm Syrup) 10 ml PO Q6 PRN PRN Reason: Cough Last Admin: 02/24/18 04:32 Dose: 10 ml Results - Vital Signs Recent Vital Signs: Last Vital Signs Temp 97.8 F 02/24/18 07:52 Pulse 95 H 02/24/18 07:52 Resp 18 02/24/18 07:52 BP 128/77 02/24/18 07:52 Pulse Ox 99 02/24/18 07:52 - Labs Result Diagrams: 02/24/18 06:40 02/24/18 06:40 Labs: Laboratory Results - last 24 hr 02/24/18 02/24/18 06:40 06:40 WBC 11.1 H RBC 3.83 Hgb 11.3 L Hct 34.9 MCV 91.0 MCH 29.5 MCHC 32.4 L RDW 13.8 Plt Count 283 MPV 7.9 Neut % (Auto) 77.8 H Lymph % (Auto) 11.8 L Mchenry % (Auto) 10.3 H Eos % (Auto) 0.0 Baso % (Auto) 0.1 Neut # (Auto) 8.6 H Lymph # (Auto) 1.3 Mchenry # (Auto) 1.1 H Eos # (Auto) 0.0 Baso # (Auto) 0.0 Sodium 145 Potassium 3.2 L Chloride 104 Carbon Dioxide 32 H Anion Gap 12 BUN 19 H Creatinine 0.5 L Est GFR ( Amer) > 60 Est GFR (Non-Af Amer) > 60 Random Glucose 114 H Calcium 8.9
[2018-02-24 15:13] LABS: SQUAMOUS EPITHIAL 4 /hpf (0-5); URINE BILIRUBIN NEGATIVE (NEGATIVE); URINE BLOOD NEGATIVE (NEGATIVE); URINE CLARITY SLIGHTY-CLOUDY (Clear); URINE COLOR YELLOW (YELLOW); URINE GLUCOSE (UA) NEG (Normal); URINE LEUKOCYTE ESTERASE SMALL Leu/uL (Negative); URINE PROTEIN NEGATIVE (NEGATIVE); URINE UROBILINOGEN 0.2-1.0 mg/dL (0.2-1.0)
[2018-02-25] MEDS: Albuterol 0.083% Inhal Sol (2.5 mg/3 mL) UD INH PRN ×3 (02:10→14:40)
[2018-02-25] MEDS: Oxycodone/Acetaminophen 5/325 mg Tab PO PRN ×3 (02:41→18:35)
[2018-02-25] MEDS: Albuterol HFA 90 mcg/actuation (8 g) IH PRN ×4 (04:32→18:32)
[2018-02-25] MEDS: Promethazine DM 12.5 mg-30 mg/10 ml Syrup PO PRN ×2 (05:56→17:52)
[2018-02-25] MEDS: Albuterol-Ipratrop 3 mg / 0.5 (3 ml) UD INH SCH ×4 (07:09→19:41)
[2018-02-25 08:23] LABS: BLOOD UREA NITROGEN 19 mg/dl (7-17); GFR AFRICAN-AMERICAN > 60; GFR NON-AFRICAN AMERICAN > 60
[2018-02-25] MEDS: Cholecalciferol 1,000 INTLU TAB PO SCH (09:06)
[2018-02-25] MEDS: Enoxaparin 40 mg Syringe SC SCH (09:06)
[2018-02-25] MEDS: acetaZOLAMIDE 500 mg SR Cap PO SCH ×2 (09:06→20:41)
[2018-02-25] MEDS: DALIRESP 250 MCG PO SCH (09:06)
[2018-02-25] MEDS: Pantoprazole 40 mg EC Tab PO SCH (09:08)
[2018-02-25] MEDS: Potassium Chloride 20 mEq ER Tab PO SCH ×2 (10:05→16:50)
[2018-02-25] MEDS ORDERED: Hydrocortisone- 50 MG in Sodium Chloride 0.9% 100 ML IV SCH (21:00)
[2018-02-26] MEDS: Albuterol 0.083% Inhal Sol (2.5 mg/3 mL) UD INH PRN ×6 (00:24→22:52)
[2018-02-26] MEDS: Promethazine DM 12.5 mg-30 mg/10 ml Syrup PO PRN ×2 (00:39→06:08)
[2018-02-26] MEDS: Albuterol-Ipratrop 3 mg / 0.5 (3 ml) UD INH SCH ×4 (07:08→20:45)
[2018-02-26] MEDS: DALIRESP 250 MCG PO SCH (08:39)
[2018-02-26] MEDS: Potassium Chloride 20 mEq ER Tab PO SCH ×3 (08:39→18:05)
[2018-02-26] MEDS: Pantoprazole 40 mg EC Tab PO SCH (08:39)
[2018-02-26] MEDS: acetaZOLAMIDE 500 mg SR Cap PO SCH ×2 (08:39→21:39)
[2018-02-26] MEDS: Cholecalciferol 1,000 INTLU TAB PO SCH (08:40)
[2018-02-26] MEDS: Enoxaparin 40 mg Syringe SC SCH (08:40)
[2018-02-26] MEDS: Albuterol HFA 90 mcg/actuation (8 g) IH PRN (08:58)
[2018-02-26] MEDS: Oxycodone/Acetaminophen 5/325 mg Tab PO PRN ×3 (09:15→22:02)
[2018-02-26] MEDS ORDERED: Bismuth Subsalicylate 262 mg Chew Tab PO ONE (10:02)
--- NOTE | 2018-02-26 10:12 | CP.PCM.PN ---
Subjective - Date & Time of Evaluation Date of Evaluation: 02/26/18 Time of Evaluation: 06:50 - Subjective Subjective: 57 y/o F seen and examined by bedside. Pt reports feeling OK, Pt afebrile, tolerating PO. Pt at her baseline for respiratory status. No caute events overnight. Objective - Vital Signs/Intake and Output Vital Signs (last 24 hours): Temp Pulse Resp BP Pulse Ox 98.4 F 86 20 140/79 99 02/26/18 08:07 02/26/18 08:07 02/26/18 08:07 02/26/18 08:07 02/26/18 08:07 - Medications Medications: Current Medications Acetazolamide (Diamox Sequels 500 Mg Sr Cap) 500 mg PO Q12 [facility] Last Admin: 02/26/18 08:39 Dose: 500 mg Albuterol (Ventolin Hfa 90 Mcg/Actuation (8 G)) 2 puff IH RQ4 PRN PRN Reason: Shortness of Breath Last Admin: 02/26/18 08:58 Dose: 2 puff Albuterol Sulfate (Albuterol 0.083% Inhal Caridad (2.5 Mg/3 Ml) Ud) 2.5 mg INH RQ4 PRN PRN Reason: Shortness of Breath Last Admin: 02/26/18 10:06 Dose: 2.5 mg Albuterol/Ipratropium (Duoneb 3 Mg/0.5 Mg (3 Ml) Ud) 3 ml INH RQID [facility] Last Admin: 02/26/18 07:08 Dose: 3 ml Alprazolam (Xanax) 0.25 mg PO Q8 PRN PRN Reason: Anxiety Last Admin: 02/25/18 14:26 Dose: 0.25 mg Bismuth Subsalicylate (Pepto Bismol) 524 mg PO ONCE ONE Stop: 02/26/18 10:03 Cholecalciferol (Vitamin D) 1,000 intlu PO DAILY [facility] Last Admin: 02/26/18 08:40 Dose: 1,000 intlu Enoxaparin Sodium (Lovenox) 40 mg SC DAILY [facility] PRN Reason: Protocol Last Admin: 02/26/18 08:40 Dose: 40 mg Home Med (Patient's Own Medication) 1 unit PO DAILY [facility] Last Admin: 02/26/18 08:39 Dose: 1 unit Hydrocortisone Sodium Succinate (Solu-Cortef) 50 mg IV Q12 [facility] Last Admin: 02/26/18 08:40 Dose: 50 mg Loratadine (Claritin) 10 mg PO DAILY [facility] Last Admin: 02/26/18 08:40 Dose: 10 mg Oxycodone/Acetaminophen (Percocet 5/325 Mg Tab) 1 tab PO Q6 PRN PRN Reason: Pain, moderate (4-7) Stop: 02/26/18 16:42 Last Admin: 02/26/18 09:15 Dose: 1 tab Pantoprazole Sodium (Protonix Ec Tab) 40 mg PO DAILY [facility] Last Admin: 02/26/18 08:39 Dose: 40 mg Potassium Chloride (K-Dur 20 Meq Er Tab) 20 meq PO BID [facility] Last Admin: 02/26/18 08:39 Dose: 20 meq Promethazine HCl/Dextromethorphan (Phenergan Dm Syrup) 10 ml PO Q6 PRN PRN Reason: Cough Last Admin: 02/26/18 06:08 Dose: 10 ml - Labs Labs: 02/24/18 06:40 02/25/18 06:30 - Constitutional Appears: No Acute Distress - Head Exam Head Exam: ATRAUMATIC - Eye Exam Eye Exam: EOMI, Normal appearance - ENT Exam ENT Exam: Mucous Membranes Moist - Neck Exam Neck Exam: Full ROM. absent: Meningismus - Respiratory Exam Respiratory Exam: Decreased Breath Sounds, NORMAL BREATHING PATTERN. absent: Rhonchi, Wheezes - Cardiovascular Exam Cardiovascular Exam: REGULAR RHYTHM, +S1, +S2 - GI/Abdominal Exam GI & Abdominal Exam: Soft, Normal Bowel Sounds. absent: Guarding, Rigid, Tenderness - Extremities Exam Extremities Exam: Full ROM, Normal Inspection. 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 PLAN: Advanced COPD/Lymphangioleiomyomatosis -Afebrile -Alumni Relations Coordinator, Dr. Interiano, recommendations appreciated. -Continue IV Ceftriaxone, Acetazolamide 500mg, DuoNEB Q4, Hydrocortisone 100 mg IV Q12 -Roflumilast 250mcg daily, pt's own medication as per pulmonology. Chronic Pain syndrome -Continue Percocet, -Start Sertraline 25 mg po qhs -Physical therapy consult ordered. Anxiety -Xanax PRN Diet -regular diet DVT prophylaxis -Lovenox 40 mg sc daily
[2018-02-27] MEDS: Albuterol 0.083% Inhal Sol (2.5 mg/3 mL) UD INH PRN ×6 (01:49→23:15)
[2018-02-27] MEDS: Oxycodone/Acetaminophen 5/325 mg Tab PO PRN ×3 (05:30→18:14)
[2018-02-27 06:28] LABS: BLOOD UREA NITROGEN 21 mg/dl (7-17); CALCIUM 9.1 mg/dL (8.4-10.2); GFR AFRICAN-AMERICAN > 60; GFR NON-AFRICAN AMERICAN > 60
[2018-02-27] MEDS: Albuterol-Ipratrop 3 mg / 0.5 (3 ml) UD INH SCH ×4 (08:02→19:11)
[2018-02-27] MEDS: Enoxaparin 40 mg Syringe SC SCH (08:13)
[2018-02-27] MEDS: acetaZOLAMIDE 500 mg SR Cap PO SCH ×2 (08:13→21:42)
[2018-02-27] MEDS: Potassium Chloride 20 mEq ER Tab PO SCH ×2 (08:13→17:05)
[2018-02-27] MEDS: DALIRESP 250 MCG PO SCH (08:13)
[2018-02-27] MEDS: Cholecalciferol 1,000 INTLU TAB PO SCH (08:13)
[2018-02-27] MEDS: Pantoprazole 40 mg EC Tab PO SCH (08:14)
--- NOTE | 2018-02-27 09:22 | CP.PCM.PN ---
Subjective - Date & Time of Evaluation Date of Evaluation: 02/27/18 Time of Evaluation: 09:22 - Subjective Subjective: Participates in PT/OT with increased oxygen flow via NC. Mood remains depressed. Seen by therapist the other day. Has refused antidepressant in the past because of nausea. Potassium has been low and supplements have been given. Will switch from parentral steroids to oral and decrease dose as tolerated. Appears to tolerate the initial doses of roflumilast without incident. Objective - Vital Signs/Intake and Output Vital Signs (last 24 hours): Temp Pulse Resp BP Pulse Ox 97.4 F L 96 H 18 138/77 97 02/27/18 07:59 02/27/18 07:59 02/27/18 07:59 02/27/18 07:59 02/27/18 07:59 - Medications Medications: Current Medications Acetazolamide (Diamox Sequels 500 Mg Sr Cap) 500 mg PO Q12 [facility] Last Admin: 02/27/18 08:13 Dose: 500 mg Albuterol (Ventolin Hfa 90 Mcg/Actuation (8 G)) 2 puff IH RQ4 PRN PRN Reason: Shortness of Breath Last Admin: 02/26/18 08:58 Dose: 2 puff Albuterol Sulfate (Albuterol 0.083% Inhal Caridad (2.5 Mg/3 Ml) Ud) 2.5 mg INH RQ4 PRN PRN Reason: Shortness of Breath Last Admin: 02/27/18 06:02 Dose: 2.5 mg Albuterol/Ipratropium (Duoneb 3 Mg/0.5 Mg (3 Ml) Ud) 3 ml INH RQID [facility] Last Admin: 02/26/18 20:45 Dose: 3 ml Alprazolam (Xanax) 0.25 mg PO Q8 PRN PRN Reason: Anxiety Last Admin: 02/27/18 08:24 Dose: 0.25 mg Cholecalciferol (Vitamin D) 1,000 intlu PO DAILY [facility] Last Admin: 02/27/18 08:13 Dose: 1,000 intlu Enoxaparin Sodium (Lovenox) 40 mg SC DAILY [facility] PRN Reason: Protocol Last Admin: 02/27/18 08:13 Dose: 40 mg Fluticasone Propionate (Flonase) 2 spr [place]IRBY DAILY [facility] Last Admin: 02/27/18 08:12 Dose: 2 spr Home Med (Patient's Own Medication) 1 unit PO DAILY [facility] Last Admin: 02/27/18 08:13 Dose: 1 unit Loratadine (Claritin) 10 mg PO DAILY [facility] Last Admin: 02/27/18 08:13 Dose: 10 mg Oxycodone/Acetaminophen (Percocet 5/325 Mg Tab) 1 tab PO Q6 PRN PRN Reason: Pain, moderate (4-7) Stop: 03/01/18 19:46 Last Admin: 02/27/18 05:30 Dose: 1 tab Pantoprazole Sodium (Protonix Ec Tab) 40 mg PO DAILY [facility] Last Admin: 02/27/18 08:14 Dose: 40 mg Potassium Chloride (K-Dur 20 Meq Er Tab) 20 meq PO BID [facility] Last Admin: 02/27/18 08:13 Dose: Not Given Prednisone (Prednisone Tab) 10 mg PO DAILY [facility] Promethazine HCl/Dextromethorphan (Phenergan Dm Syrup) 10 ml PO Q6 PRN PRN Reason: Cough Last Admin: 02/26/18 06:08 Dose: 10 ml Sodium Chloride ([place] Nasal [place]) 1 sprays [place]IR[place] Q4 PRN PRN Reason: Nasal congestion - Labs Labs: 02/24/18 06:40 02/27/18 05:45 Assessment and Plan (1) Lymphangioleiomyomatosis Status: Chronic (2) Depressed mood Status: Acute (3) COPD (chronic obstructive pulmonary disease) Status: Chronic (4) Chronic hypercapnic respiratory failure Status: Chronic
[2018-02-27] MEDS: Albuterol HFA 90 mcg/actuation (8 g) IH PRN (09:26)
--- NOTE | 2018-02-27 10:09 | CP.PCM.PN ---
<Alton Taylor - Last Filed: 02/27/18 13:50> Subjective - Date & Time of Evaluation Date of Evaluation: 02/27/18 Time of Evaluation: 07:00 - Subjective Subjective: 57 y/o F seen and examined by bedside. Pt c/o nasal congestion and not able to breathe through her nose. Breathing has been at baseline. Pt afebrile, tolerating PO. Objective - Vital Signs/Intake and Output Vital Signs (last 24 hours): Temp Pulse Resp BP Pulse Ox 97.4 F L 96 H 18 138/77 97 02/27/18 07:59 02/27/18 07:59 02/27/18 07:59 02/27/18 07:59 02/27/18 07:59 - Medications Medications: Current Medications Acetazolamide (Diamox Sequels 500 Mg Sr Cap) 500 mg PO Q12 [facility] Last Admin: 02/27/18 08:13 Dose: 500 mg Albuterol (Ventolin Hfa 90 Mcg/Actuation (8 G)) 2 puff IH RQ4 PRN PRN Reason: Shortness of Breath Last Admin: 02/27/18 09:26 Dose: 2 puff Albuterol Sulfate (Albuterol 0.083% Inhal Caridad (2.5 Mg/3 Ml) Ud) 2.5 mg INH RQ4 PRN PRN Reason: Shortness of Breath Last Admin: 02/27/18 06:02 Dose: 2.5 mg Albuterol/Ipratropium (Duoneb 3 Mg/0.5 Mg (3 Ml) Ud) 3 ml INH RQID [facility] Last Admin: 02/26/18 20:45 Dose: 3 ml Alprazolam (Xanax) 0.25 mg PO Q8 PRN PRN Reason: Anxiety Last Admin: 02/27/18 08:24 Dose: 0.25 mg Cholecalciferol (Vitamin D) 1,000 intlu PO DAILY [facility] Last Admin: 02/27/18 08:13 Dose: 1,000 intlu Enoxaparin Sodium (Lovenox) 40 mg SC DAILY [facility] PRN Reason: Protocol Last Admin: 02/27/18 08:13 Dose: 40 mg Fluticasone Propionate (Flonase) 2 spr KIRBY DAILY [facility] Last Admin: 02/27/18 08:12 Dose: 2 spr Home Med (Patient's Own Medication) 1 unit PO DAILY [facility] Last Admin: 02/27/18 08:13 Dose: 1 unit Loratadine (Claritin) 10 mg PO DAILY [facility] Last Admin: 02/27/18 08:13 Dose: 10 mg Oxycodone/Acetaminophen (Percocet 5/325 Mg Tab) 1 tab PO Q6 PRN PRN Reason: Pain, moderate (4-7) Stop: 03/01/18 19:46 Last Admin: 02/27/18 05:30 Dose: 1 tab Pantoprazole Sodium (Protonix Ec Tab) 40 mg PO DAILY [facility] Last Admin: 02/27/18 08:14 Dose: 40 mg Potassium Chloride (K-Dur 20 Meq Er Tab) 20 meq PO BID [facility] Last Admin: 02/27/18 08:13 Dose: Not Given Prednisone (Prednisone Tab) 10 mg PO DAILY [facility] Promethazine HCl/Dextromethorphan (Phenergan Dm Syrup) 10 ml PO Q6 PRN PRN Reason: Cough Last Admin: 02/26/18 06:08 Dose: 10 ml Sodium Chloride ([place] Nasal [place]) 1 sprays [place] Q4 PRN PRN Reason: Nasal congestion - Labs Labs: 02/24/18 06:40 02/27/18 05:45 - Constitutional Appears: No Acute Distress - Head Exam Head Exam: ATRAUMATIC, NORMAL INSPECTION - Eye Exam Eye Exam: EOMI - ENT Exam ENT Exam: Mucous Membranes Moist - Neck Exam Neck Exam: Full ROM, Normal Inspection - Respiratory Exam Respiratory Exam: Decreased Breath Sounds, NORMAL BREATHING PATTERN. absent: Chest Wall Tenderness, Rhonchi, Wheezes, Respiratory Distress - Cardiovascular Exam Cardiovascular Exam: REGULAR RHYTHM, +S1, +S2 - GI/Abdominal Exam GI & Abdominal Exam: Soft. absent: Firm, Rigid, Tenderness, Normal Bowel Sounds - Extremities Exam Extremities Exam: Normal Inspection. 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 PLAN: Advanced COPD/Lymphangioleiomyomatosis -Afebrile -Process Automation Engineer, Dr. Interiano, recommendations appreciated. -Continue IV Ceftriaxone, Acetazolamide 500mg, DuoNEB Q4, Hydrocortisone 100 mg IV Q12 -Roflumilast 250mcg daily, pt's own medication as per pulmonology. -Flonase ordered for nasal congestion. Hypokalemia -Serum K+ 3.5 today from 3.2-2 days ago, slight improvement. -Potassium Chloride 20mEQ PO BID. -Monitor BMP. Chronic Pain syndrome -Continue Percocet, -Start Sertraline 25 mg po qhs -Physical therapy consult ordered. Anxiety -Xanax PRN Diet -regular diet DVT prophylaxis -Lovenox 40 mg sc daily <Juan Meza - Last Filed: 02/28/18 07:20> Objective - Vital Signs/Intake and Output Vital Signs (last 24 hours): Temp Pulse Resp BP Pulse Ox 97.5 F L 109 H 20 121/67 98 02/27/18 22:20 02/27/18 22:20 02/27/18 22:20 02/27/18 22:20 02/27/18 22:20 - Medications Medications: Current Medications Acetazolamide (Diamox Sequels 500 Mg Sr Cap) 500 mg PO Q12 [facility] Last Admin: 02/27/18 21:42 Dose: 500 mg Albuterol (Ventolin Hfa 90 Mcg/Actuation (8 G)) 2 puff IH RQ4 PRN PRN Reason: Shortness of Breath Last Admin: 02/27/18 09:26 Dose: 2 puff Albuterol Sulfate (Albuterol 0.083% Inhal Caridad (2.5 Mg/3 Ml) Ud) 2.5 mg INH RQ4 PRN PRN Reason: Shortness of Breath Last Admin: 02/28/18 03:29 Dose: 2.5 mg Albuterol/Ipratropium (Duoneb 3 Mg/0.5 Mg (3 Ml) Ud) 3 ml INH RQID [facility] Last Admin: 02/27/18 19:11 Dose: 3 ml Alprazolam (Xanax) 0.25 mg PO Q8 PRN PRN Reason: Anxiety Last Admin: 02/27/18 08:24 Dose: 0.25 mg Cholecalciferol (Vitamin D) 1,000 intlu PO DAILY [facility] Last Admin: 02/27/18 08:13 Dose: 1,000 intlu Enoxaparin Sodium (Lovenox) 40 mg SC DAILY [facility] PRN Reason: Protocol Last Admin: 02/27/18 08:13 Dose: 40 mg Fluticasone Propionate (Flonase) 2 spr KIRBY DAILY [facility] Last Admin: 02/27/18 08:12 Dose: 2 spr Home Med (Patient's Own Medication) 1 unit PO DAILY [facility] Last Admin: 02/27/18 08:13 Dose: 1 unit Loratadine (Claritin) 10 mg PO DAILY [facility] Last Admin: 02/27/18 08:13 Dose: 10 mg Oxycodone/Acetaminophen (Percocet 5/325 Mg Tab) 1 tab PO Q6 PRN PRN Reason: Pain, moderate (4-7) Stop: 03/01/18 19:46 Last Admin: 02/28/18 03:06 Dose: 1 tab Pantoprazole Sodium (Protonix Ec Tab) 40 mg PO DAILY [facility] Last Admin: 02/27/18 08:14 Dose: 40 mg Potassium Chloride (K-Dur 20 Meq Er Tab) 20 meq PO TID [facility] Prednisone (Prednisone Tab) 10 mg PO DAILY [facility] Promethazine HCl/Dextromethorphan (Phenergan Dm Syrup) 10 ml PO Q6 PRN PRN Reason: Cough Last Admin: 02/26/18 06:08 Dose: 10 ml Sodium Chloride ([place] Nasal [place]) 1 sprays [place] Q4 PRN PRN Reason: Nasal congestion - Labs Labs: 02/28/18 05:30 02/28/18 05:30 Attending/Attestation - Attestation I have personally seen and examined this patient.: Yes I have fully participated in the care of the patient.: Yes I have reviewed all pertinent clinical information, including history, physical exam and plan: Yes
[2018-02-27 16:53] VITALS: RESP 20
[2018-02-28] MEDS: Oxycodone/Acetaminophen 5/325 mg Tab PO PRN ×4 (03:06→21:14)
[2018-02-28] MEDS: Albuterol 0.083% Inhal Sol (2.5 mg/3 mL) UD INH PRN ×2 (03:29→22:20)
[2018-02-28 06:33] LABS: BASO % 0.3 % (0.0-2.0); EOS # 0.2 K/uL (0.0-0.7); EOS % 1.7 % (0.0-4.0); HEMOGLOBIN 11.6 g/dL (12.0-16.0); LYMPH # 2.6 K/uL (1.0-4.3); LYMPH % 26.8 % (20.0-40.0); MEAN CELL VOLUME 92.3 fl (81.0-99.0); MEAN CORPUSCULAR HEMOGLOBIN 29.6 pg (27.0-31.0); MEAN PLATELET VOLUME 7.7 fl (7.2-11.7); MONO # 1.2 K/uL (0.0-0.8); NEUT # 5.8 K/uL (1.8-7.0); NEUT % 59.2 % (50.0-75.0); RBC 3.92 Mil/uL (3.80-5.20); RED CELL DISTRIBUTION WIDTH 14.3 % (11.5-14.5); WHITE BLOOD COUNT 9.8 K/uL (4.8-10.8)
[2018-02-28 06:39] LABS: BLOOD UREA NITROGEN 20 mg/dl (7-17); CALCIUM 8.8 mg/dL (8.4-10.2); GFR AFRICAN-AMERICAN > 60; GFR NON-AFRICAN AMERICAN > 60
[2018-02-28] MEDS ORDERED: Potassium Chloride 20 mEq ER Tab PO ONE (06:42)
[2018-02-28] MEDS: Albuterol-Ipratrop 3 mg / 0.5 (3 ml) UD INH SCH ×4 (07:31→19:19)
[2018-02-28] MEDS: Potassium Chloride 20 mEq ER Tab PO SCH ×3 (08:41→17:14)
[2018-02-28] MEDS: acetaZOLAMIDE 500 mg SR Cap PO SCH ×2 (08:42→21:14)
[2018-02-28] MEDS: DALIRESP 250 MCG PO SCH (08:43)
[2018-02-28] MEDS: Pantoprazole 40 mg EC Tab PO SCH (08:43)
[2018-02-28] MEDS: Enoxaparin 40 mg Syringe SC SCH (08:43)
[2018-02-28] MEDS: Cholecalciferol 1,000 INTLU TAB PO SCH (08:44)
[2018-02-28] MEDS: Albuterol HFA 90 mcg/actuation (8 g) IH PRN ×2 (09:27→14:42)
--- NOTE | 2018-02-28 09:27 | CP.PCM.PN ---
Subjective - Date & Time of Evaluation Date of Evaluation: 02/28/18 Time of Evaluation: 07:00 - Subjective Subjective: 57 y/o M seen and examined by bedside. Pt reports her pulmonary symptoms are at baseline, denies worsening SOB or wheezing. Pt reports room feel very cold to her. Pt afebrile and tolerating PO. Pt declined last night PO Potassium Chloride treatment. Objective - Vital Signs/Intake and Output Vital Signs (last 24 hours): Temp Pulse Resp BP Pulse Ox 97.5 F L 93 H 20 134/83 98 02/28/18 08:16 02/28/18 08:16 02/28/18 08:16 02/28/18 08:16 02/28/18 08:16 - Medications Medications: Current Medications Acetazolamide (Diamox Sequels 500 Mg Sr Cap) 500 mg PO Q12 [facility] Last Admin: 02/28/18 08:42 Dose: 500 mg Albuterol (Ventolin Hfa 90 Mcg/Actuation (8 G)) 2 puff IH RQ4 PRN PRN Reason: Shortness of Breath Last Admin: 02/27/18 09:26 Dose: 2 puff Albuterol Sulfate (Albuterol 0.083% Inhal Caridad (2.5 Mg/3 Ml) Ud) 2.5 mg INH RQ4 PRN PRN Reason: Shortness of Breath Last Admin: 02/28/18 03:29 Dose: 2.5 mg Albuterol/Ipratropium (Duoneb 3 Mg/0.5 Mg (3 Ml) Ud) 3 ml INH RQID [facility] Last Admin: 02/28/18 07:31 Dose: 3 ml Alprazolam (Xanax) 0.25 mg PO Q8 PRN PRN Reason: Anxiety Last Admin: 02/27/18 08:24 Dose: 0.25 mg Cholecalciferol (Vitamin D) 1,000 intlu PO DAILY [facility] Last Admin: 02/28/18 08:44 Dose: 1,000 intlu Enoxaparin Sodium (Lovenox) 40 mg SC DAILY [facility] PRN Reason: Protocol Last Admin: 02/28/18 08:43 Dose: 40 mg Fluticasone Propionate (Flonase) 2 spr KIRBY DAILY [facility] Last Admin: 02/28/18 08:51 Dose: 2 spr Home Med (Patient's Own Medication) 1 unit PO DAILY [facility] Last Admin: 02/28/18 08:43 Dose: 1 unit Loratadine (Claritin) 10 mg PO DAILY [facility] Last Admin: 02/28/18 08:41 Dose: 10 mg Oxycodone/Acetaminophen (Percocet 5/325 Mg Tab) 1 tab PO Q6 PRN PRN Reason: Pain, moderate (4-7) Stop: 03/01/18 19:46 Last Admin: 02/28/18 03:06 Dose: 1 tab Pantoprazole Sodium (Protonix Ec Tab) 40 mg PO DAILY [facility] Last Admin: 02/28/18 08:43 Dose: 40 mg Potassium Chloride (K-Dur 20 Meq Er Tab) 20 meq PO TID [facility] Last Admin: 02/28/18 08:41 Dose: 20 meq Prednisone (Prednisone Tab) 10 mg PO DAILY [facility] Last Admin: 02/28/18 08:43 Dose: 10 mg Promethazine HCl/Dextromethorphan (Phenergan Dm Syrup) 10 ml PO Q6 PRN PRN Reason: Cough Last Admin: 02/26/18 06:08 Dose: 10 ml Sodium Chloride ([place] Nasal [place]) 1 sprays [place] Q4 PRN PRN Reason: Nasal congestion - Labs Labs: 02/28/18 05:30 02/28/18 05:30 - Constitutional Appears: No Acute Distress, Chronically Ill - Head Exam Head Exam: ATRAUMATIC - Eye Exam Eye Exam: EOMI, Normal appearance - ENT Exam ENT Exam: Mucous Membranes Moist - Neck Exam Neck Exam: Full ROM, Normal Inspection - Respiratory Exam Respiratory Exam: Decreased Breath Sounds, NORMAL BREATHING PATTERN. absent: Chest Wall Tenderness, Rhonchi, Wheezes - Cardiovascular Exam Cardiovascular Exam: REGULAR RHYTHM, +S1, +S2 - GI/Abdominal Exam GI & Abdominal Exam: Soft, Normal Bowel Sounds. 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 PLAN: Hypokalemia -Serum K+ 2.8 today. -Potassium Chloride 20mEQ PO, now TID from BID. -Monitor BMP. Advanced COPD/Lymphangioleiomyomatosis -Afebrile -Chummer, Dr. Interiano, recommendations appreciated. -Continue Acetazolamide 500mg, DuoNEB Q4. -Roflumilast 250mcg daily, pt's own medication as per pulmonology. -Flonase ordered for nasal congestion. Chronic Pain syndrome -Continue Percocet, -Start Sertraline 25 mg po qhs -Physical therapy consult ordered. Anxiety -Xanax 0.25mg Q8H PRN Diet -regular diet DVT prophylaxis -Lovenox 40 mg sc daily
--- NOTE | 2018-02-28 10:28 | CP.PCM.PN ---
Subjective - Date & Time of Evaluation Date of Evaluation: 02/28/18 Time of Evaluation: 10:28 - Subjective Subjective: Mood is still depressed. She continues to participate with PT/OT. Her potassium remains low (had refused K supplement yesterday-GI upset). No issues thus far using roflumilast. Breath sounds are very diminished bilaterally and inspiratory phase seems shortened. Air entry does appear to be improved from initial exam on admission to acute medicine. Complains that her thighs feel heavy, trace ankle edema without cyanosis present. Will continue prednisone 10MG again tomorrow AM then reduce to 5MG thereafter. Discussed with her the necessity for supplemental potassium. Objective - Vital Signs/Intake and Output Vital Signs (last 24 hours): Temp Pulse Resp BP Pulse Ox 97.5 F L 93 H 20 134/83 98 02/28/18 08:16 02/28/18 08:16 02/28/18 08:16 02/28/18 08:16 02/28/18 08:16 - Medications Medications: Current Medications Acetazolamide (Diamox Sequels 500 Mg Sr Cap) 500 mg PO Q12 [facility] Last Admin: 02/28/18 08:42 Dose: 500 mg Albuterol (Ventolin Hfa 90 Mcg/Actuation (8 G)) 2 puff IH RQ4 PRN PRN Reason: Shortness of Breath Last Admin: 02/28/18 09:27 Dose: 2 puff Albuterol Sulfate (Albuterol 0.083% Inhal [place] (2.5 Mg/3 Ml) Ud) 2.5 mg INH RQ4 PRN PRN Reason: Shortness of Breath Last Admin: 02/28/18 03:29 Dose: 2.5 mg Albuterol/Ipratropium (Duoneb 3 Mg/0.5 Mg (3 Ml) Ud) 3 ml INH RQID [facility] Last Admin: 02/28/18 07:31 Dose: 3 ml Alprazolam (Xanax) 0.25 mg PO Q8 PRN PRN Reason: Anxiety Last Admin: 02/27/18 08:24 Dose: 0.25 mg Cholecalciferol (Vitamin D) 1,000 intlu PO DAILY [facility] Last Admin: 02/28/18 08:44 Dose: 1,000 intlu Enoxaparin Sodium (Lovenox) 40 mg SC DAILY [facility] PRN Reason: Protocol Last Admin: 02/28/18 08:43 Dose: 40 mg Fluticasone Propionate (Flonase) 2 spr KIRBY DAILY [facility] Last Admin: 02/28/18 08:51 Dose: 2 spr Home Med (Patient's Own Medication) 1 unit PO DAILY [facility] Last Admin: 02/28/18 08:43 Dose: 1 unit Loratadine (Claritin) 10 mg PO DAILY [facility] Last Admin: 02/28/18 08:41 Dose: 10 mg Oxycodone/Acetaminophen (Percocet 5/325 Mg Tab) 1 tab PO Q6 PRN PRN Reason: Pain, moderate (4-7) Stop: 03/01/18 19:46 Last Admin: 02/28/18 09:37 Dose: 1 tab Pantoprazole Sodium (Protonix Ec Tab) 40 mg PO DAILY [facility] Last Admin: 02/28/18 08:43 Dose: 40 mg Potassium Chloride (K-Dur 20 Meq Er Tab) 20 meq PO TID [facility] Last Admin: 02/28/18 08:41 Dose: 20 meq Prednisone (Prednisone Tab) 10 mg PO DAILY [facility] Last Admin: 02/28/18 08:43 Dose: 10 mg Promethazine HCl/Dextromethorphan (Phenergan Dm Syrup) 10 ml PO Q6 PRN PRN Reason: Cough Last Admin: 02/26/18 06:08 Dose: 10 ml Sodium Chloride ([place] Nasal [place]) 1 sprays KIRBY Q4 PRN PRN Reason: Nasal congestion - Labs Labs: 02/28/18 05:30 02/28/18 05:30 Assessment and Plan (1) Lymphangioleiomyomatosis Status: Chronic (2) Depressed mood Status: Acute (3) COPD (chronic obstructive pulmonary disease) Status: Chronic (4) Chronic hypercapnic respiratory failure Status: Chronic
[2018-02-28] MEDS: Promethazine DM 12.5 mg-30 mg/10 ml Syrup PO PRN (18:20)
[2018-03-01] MEDS: Albuterol 0.083% Inhal Sol (2.5 mg/3 mL) UD INH PRN ×2 (01:36→06:17)
[2018-03-01] MEDS: Oxycodone/Acetaminophen 5/325 mg Tab PO PRN ×3 (05:53→22:48)
[2018-03-01] MEDS: Albuterol-Ipratrop 3 mg / 0.5 (3 ml) UD INH SCH ×4 (07:25→19:32)
[2018-03-01 08:23] LABS: BLOOD UREA NITROGEN 18 mg/dl (7-17); CALCIUM 9.1 mg/dL (8.4-10.2); GFR AFRICAN-AMERICAN > 60; GFR NON-AFRICAN AMERICAN > 60
[2018-03-01] MEDS: Enoxaparin 40 mg Syringe SC SCH (08:27)
[2018-03-01] MEDS: Potassium Chloride 20 mEq ER Tab PO SCH ×3 (08:27→17:01)
[2018-03-01] MEDS: Pantoprazole 40 mg EC Tab PO SCH (08:28)
[2018-03-01] MEDS: acetaZOLAMIDE 500 mg SR Cap PO SCH ×2 (08:28→21:17)
[2018-03-01] MEDS: Cholecalciferol 1,000 INTLU TAB PO SCH (08:28)
[2018-03-01] MEDS: DALIRESP 250 MCG PO SCH (08:29)
--- NOTE | 2018-03-01 09:42 | CP.PCM.PN ---
<Alton Taylor - Last Filed: 03/01/18 09:49> Subjective - Date & Time of Evaluation Date of Evaluation: 03/01/18 Time of Evaluation: 07:00 - Subjective Subjective: 57 y/o F seen and examined by bedside. Pt reports feeling OK. Breathing is at baseline. Pt complains of nasal congestion which makes her breathe through her mouth. Pt also c/o bilateral leg weakness for several days. Pt afebrile, tolerating PO with NO acute events overnight. Objective - Vital Signs/Intake and Output Vital Signs (last 24 hours): Temp Pulse Resp BP Pulse Ox 97.8 F 95 H 20 137/78 98 03/01/18 08:13 03/01/18 08:13 03/01/18 08:13 03/01/18 08:13 03/01/18 08:13 - Medications Medications: Current Medications Acetazolamide (Diamox Sequels 500 Mg Sr Cap) 500 mg PO Q12 [facility] Last Admin: 03/01/18 08:28 Dose: 500 mg Albuterol (Ventolin Hfa 90 Mcg/Actuation (8 G)) 2 puff IH RQ4 PRN PRN Reason: Shortness of Breath Last Admin: 02/28/18 14:42 Dose: 2 puff Albuterol Sulfate (Albuterol 0.083% Inhal [place] (2.5 Mg/3 Ml) Ud) 2.5 mg INH RQ4 PRN PRN Reason: Shortness of Breath Last Admin: 03/01/18 06:17 Dose: 2.5 mg Albuterol/Ipratropium (Duoneb 3 Mg/0.5 Mg (3 Ml) Ud) 3 ml INH RQID [facility] Last Admin: 03/01/18 07:25 Dose: 3 ml Alprazolam (Xanax) 0.25 mg PO Q8 PRN PRN Reason: Anxiety Last Admin: 02/28/18 12:30 Dose: 0.25 mg Cholecalciferol (Vitamin D) 1,000 intlu PO DAILY [facility] Last Admin: 03/01/18 08:28 Dose: 1,000 intlu Enoxaparin Sodium (Lovenox) 40 mg SC DAILY [facility] PRN Reason: Protocol Last Admin: 03/01/18 08:27 Dose: 40 mg Fluticasone Propionate (Flonase) 2 spr KIRBY DAILY [facility] Last Admin: 05/23/18 08:27 Dose: 2 spr Home Med (Patient's Own Medication) 1 unit PO DAILY [facility] Last Admin: 03/01/18 08:29 Dose: 1 unit Loratadine (Claritin) 10 mg PO DAILY [facility] Last Admin: 03/01/18 08:28 Dose: 10 mg Oxycodone/Acetaminophen (Percocet 5/325 Mg Tab) 1 tab PO Q6 PRN PRN Reason: Pain, moderate (4-7) Stop: 03/01/18 19:46 Last Admin: 03/01/18 05:53 Dose: 1 tab Pantoprazole Sodium (Protonix Ec Tab) 40 mg PO DAILY [facility] Last Admin: 03/01/18 08:28 Dose: 40 mg Potassium Chloride (K-Dur 20 Meq Er Tab) 20 meq PO TID [facility] Last Admin: 03/01/18 08:27 Dose: 20 meq Prednisone (Prednisone Tab) 10 mg PO DAILY [facility] Last Admin: 03/01/18 08:28 Dose: 10 mg Promethazine HCl/Dextromethorphan (Phenergan Dm Syrup) 10 ml PO Q6 PRN PRN Reason: Cough Last Admin: 02/28/18 18:20 Dose: 10 ml Sodium Chloride ([place] Nasal [place]) 1 sprays KIRBY Q4 PRN PRN Reason: Nasal congestion - Labs Labs: 02/28/18 05:30 03/01/18 07:44 - Constitutional Appears: Toxic, Chronically Ill - Eye Exam Eye Exam: EOMI - ENT Exam ENT Exam: Mucous Membranes Moist, Normal Oropharynx Additional comments: Nostrils are clogged - Neck Exam Neck Exam: Full ROM, Normal Inspection. absent: Lymphadenopathy, Meningismus - Respiratory Exam Respiratory Exam: Decreased Breath Sounds, NORMAL BREATHING PATTERN. absent: Rhonchi, Wheezes - Cardiovascular Exam Cardiovascular Exam: REGULAR RHYTHM, +S1, +S2 - GI/Abdominal Exam GI & Abdominal Exam: Soft, Normal Bowel Sounds. absent: Tenderness - Extremities Exam Extremities Exam: Full ROM, Normal Capillary Refill, Normal Inspection, Tenderness. absent: Calf Tenderness - Neurological Exam Neurological Exam: Alert, Awake, Oriented x3 Assessment and Plan - Assessment and Plan (Free Text) Assessment: 57 y/o F with a PMHx of advanced stage COPD/Lymphangioleiomyomatosis, former cigarette smoker, obesity, chronic pain syndrome, anxiety, admitted for rehabilitation. PLAN: Advanced COPD/Lymphangioleiomyomatosis -Afebrile -Ux Information Architect, Dr. Interiano, recommendations appreciated. -Roflumilast 250mcg daily, pt's own medication as per pulmonology. -Therapy under steeler management, prednisone as per Ux Information Architect. -Flonase BID for nasal congestion. -Physical therapy Hypokalemia -Serum K+ 3.7 today. Controlled, -Continue w/Potassium Chloride 20mEQ PO TID -Monitor BMP Chronic Pain syndrome -Continue Percocet, -Sertraline 25 mg po qhs -Physical therapy Anxiety -Xanax 0.25mg Q8H PRN Diet -regular diet DVT prophylaxis -Lovenox 40 mg sc daily <Garrick Araujo - Last Filed: 03/03/18 06:54> Objective - Vital Signs/Intake and Output Vital Signs (last 24 hours): Temp Pulse Resp BP Pulse Ox 97.7 F 96 H 20 114/83 100 03/02/18 20:03 03/02/18 20:03 03/02/18 20:03 03/02/18 20:03 03/02/18 20:03 - Medications Medications: Current Medications Acetazolamide (Diamox Sequels 500 Mg Sr Cap) 500 mg PO Q12 [facility] Last Admin: 03/02/18 22:21 Dose: 500 mg Albuterol (Ventolin Hfa 90 Mcg/Actuation (8 G)) 2 puff IH RQ4 PRN PRN Reason: Shortness of Breath Last Admin: 03/01/18 18:07 Dose: 2 puff Albuterol/Ipratropium (Duoneb 3 Mg/0.5 Mg (3 Ml) Ud) 3 ml INH RQID [facility] Last Admin: 03/02/18 20:49 Dose: 3 ml Alprazolam (Xanax) 0.25 mg PO Q8 PRN PRN Reason: Anxiety Last Admin: 03/02/18 23:12 Dose: 0.25 mg Cholecalciferol (Vitamin D) 1,000 intlu PO DAILY [facility] Last Admin: 03/02/18 08:24 Dose: 1,000 intlu Enoxaparin Sodium (Lovenox) 40 mg SC DAILY [facility] PRN Reason: Protocol Last Admin: 03/02/18 08:21 Dose: 40 mg Fluticasone Propionate (Flonase) 2 spr KIRBY BID [facility] Last Admin: 03/02/18 17:31 Dose: 2 spr Home Med (Patient's Own Medication) 1 unit PO DAILY [facility] Last Admin: 03/02/18 08:22 Dose: 1 unit Levalbuterol HCl (Xopenex) 1.25 mg INH RQ4 PRN PRN Reason: Shortness of Breath Last Admin: 03/03/18 04:32 Dose: 1.25 mg Loratadine (Claritin) 10 mg PO DAILY [facility] Last Admin: 03/02/18 08:22 Dose: 10 mg Oxycodone/Acetaminophen (Percocet 5/325 Mg Tab) 1 tab PO Q6 PRN PRN Reason: Pain, moderate (4-7) Stop: 03/04/18 22:37 Last Admin: 03/03/18 04:19 Dose: 1 tab Pantoprazole Sodium (Protonix Ec Tab) 40 mg PO DAILY [facility] Last Admin: 03/02/18 08:22 Dose: 40 mg Potassium Chloride (K-Dur 20 Meq Er Tab) 20 meq PO BID [facility] Last Admin: 03/02/18 17:32 Dose: 20 meq Prednisone (Prednisone Tab) 10 mg PO DAILY [facility] Last Admin: 03/02/18 08:23 Dose: 10 mg Promethazine HCl/Dextromethorphan (Phenergan Dm Syrup) 10 ml PO Q6 PRN PRN Reason: Cough Last Admin: 03/02/18 22:21 Dose: 10 ml Simethicone (Mylicon Chew Tab) 80 mg PO P[facility]S PRN PRN Reason: Flatulence Sodium Chloride ([place] Nasal [place]) 1 sprays KIRBY Q4 PRN PRN Reason: Nasal congestion Last Admin: 03/01/18 17:01 Dose: 1 spr - Labs Labs: 02/28/18 05:30 03/02/18 11:03 Attending/Attestation - Attestation I have personally seen and examined this patient.: Yes I have fully participated in the care of the patient.: Yes I have reviewed all pertinent clinical information, including history, physical exam and plan: Yes
--- NOTE | 2018-03-01 10:41 | CP.PCM.PN ---
Subjective - Date & Time of Evaluation Date of Evaluation: 03/01/18 Time of Evaluation: 10:40 - Subjective Subjective: Mood does appear better today. Seated up in chair in her room. Was ambulating with therapist using walker this morning. No untoward effect from the addition of roflumilast. Steroid has been tolerated at a lower dose. Will continue the present regimen and try to increase her PT as tolerated. Objective - Vital Signs/Intake and Output Vital Signs (last 24 hours): Temp Pulse Resp BP Pulse Ox 97.8 F 95 H 20 137/78 98 03/01/18 08:13 03/01/18 08:13 03/01/18 08:13 03/01/18 08:13 03/01/18 08:13 - Medications Medications: Current Medications Acetazolamide (Diamox Sequels 500 Mg Sr Cap) 500 mg PO Q12 [facility] Last Admin: 03/01/18 08:28 Dose: 500 mg Albuterol (Ventolin Hfa 90 Mcg/Actuation (8 G)) 2 puff IH RQ4 PRN PRN Reason: Shortness of Breath Last Admin: 02/28/18 14:42 Dose: 2 puff Albuterol Sulfate (Albuterol 0.083% Inhal [place] (2.5 Mg/3 Ml) Ud) 2.5 mg INH RQ4 PRN PRN Reason: Shortness of Breath Last Admin: 03/01/18 06:17 Dose: 2.5 mg Albuterol/Ipratropium (Duoneb 3 Mg/0.5 Mg (3 Ml) Ud) 3 ml INH RQID [facility] Last Admin: 03/01/18 07:25 Dose: 3 ml Alprazolam (Xanax) 0.25 mg PO Q8 PRN PRN Reason: Anxiety Last Admin: 02/28/18 12:30 Dose: 0.25 mg Cholecalciferol (Vitamin D) 1,000 intlu PO DAILY [facility] Last Admin: 03/01/18 08:28 Dose: 1,000 intlu Enoxaparin Sodium (Lovenox) 40 mg SC DAILY [facility] PRN Reason: Protocol Last Admin: 03/01/18 08:27 Dose: 40 mg Fluticasone Propionate (Flonase) 2 spr KIRBY BID [facility] Home Med (Patient's Own Medication) 1 unit PO DAILY [facility] Last Admin: 03/01/18 08:29 Dose: 1 unit Loratadine (Claritin) 10 mg PO DAILY [facility] Last Admin: 03/01/18 08:28 Dose: 10 mg Oxycodone/Acetaminophen (Percocet 5/325 Mg Tab) 1 tab PO Q6 PRN PRN Reason: Pain, moderate (4-7) Stop: 03/01/18 19:46 Last Admin: 03/01/18 05:53 Dose: 1 tab Pantoprazole Sodium (Protonix Ec Tab) 40 mg PO DAILY [facility] Last Admin: 03/01/18 08:28 Dose: 40 mg Potassium Chloride (K-Dur 20 Meq Er Tab) 20 meq PO TID [facility] Last Admin: 03/01/18 08:27 Dose: 20 meq Prednisone (Prednisone Tab) 10 mg PO DAILY [facility] Last Admin: 03/01/18 08:28 Dose: 10 mg Promethazine HCl/Dextromethorphan (Phenergan Dm Syrup) 10 ml PO Q6 PRN PRN Reason: Cough Last Admin: 02/28/18 18:20 Dose: 10 ml Sodium Chloride ([place] Nasal [place]) 1 sprays IKRBY Q4 PRN PRN Reason: Nasal congestion - Labs Labs: 02/28/18 05:30 03/01/18 07:44 Assessment and Plan (1) Lymphangioleiomyomatosis Status: Chronic (2) Depressed mood Status: Acute (3) COPD (chronic obstructive pulmonary disease) Status: Chronic (4) Chronic hypercapnic respiratory failure Status: Chronic
[2018-03-01] MEDS: Nasal Spray(Ocean spray) NAS PRN ×2 (12:15→17:01)
[2018-03-01] MEDS: Promethazine DM 12.5 mg-30 mg/10 ml Syrup PO PRN (14:37)
[2018-03-01] MEDS: Levalbuterol 1.25 MG/3 ML Inhal Soln UD INH PRN (14:39)
[2018-03-01] MEDS: Albuterol HFA 90 mcg/actuation (8 g) IH PRN (18:07)
[2018-03-02] MEDS: Levalbuterol 1.25 MG/3 ML Inhal Soln UD INH PRN ×4 (00:12→23:36)
[2018-03-02] MEDS: Oxycodone/Acetaminophen 5/325 mg Tab PO PRN ×3 (05:28→19:03)
[2018-03-02] MEDS: Albuterol-Ipratrop 3 mg / 0.5 (3 ml) UD INH SCH ×4 (07:20→20:49)
[2018-03-02] MEDS: Enoxaparin 40 mg Syringe SC SCH (08:21)
[2018-03-02] MEDS: Pantoprazole 40 mg EC Tab PO SCH (08:22)
[2018-03-02] MEDS: acetaZOLAMIDE 500 mg SR Cap PO SCH ×2 (08:22→22:21)
[2018-03-02] MEDS: Promethazine DM 12.5 mg-30 mg/10 ml Syrup PO PRN ×2 (08:22→22:21)
[2018-03-02] MEDS: DALIRESP 250 MCG PO SCH (08:22)
[2018-03-02] MEDS: Potassium Chloride 20 mEq ER Tab PO SCH ×2 (08:23→17:32)
[2018-03-02] MEDS: Cholecalciferol 1,000 INTLU TAB PO SCH (08:24)
--- NOTE | 2018-03-02 10:43 | CP.PCM.PN ---
Addendum entered and electronically signed by Alton Taylor MD 03/02/18 15 :13: -Paged by RN about pt complaining of b/l calf pain while physical therapy. Pt seen and examined by bedside. Pt reports b/l calf pain feels like muscle pain and 5/10. -Physical exam showed mild tenderness over calf area, SILT b/l, no erythema or change in temperature appreciated, Tatiana's sign negative b/l. -Discussed with attending Dr Araujo, decided to order a duplex US of b/l lower extremities. However, pt declined as she reported pain has improved. -Will continue to monitor and observe. Original Note: <Alton Taylor - Last Filed: 03/02/18 13:20> Subjective - Date & Time of Evaluation Date of Evaluation: 03/02/18 Time of Evaluation: 07:00 - Subjective Subjective: 57 y/o F seen and examined by bedside. Pt reports feeling Ok, states her room feels warmer. Lung functioning has improved since admission as per patient. Pt afebrile and tolerating PO. Objective - Vital Signs/Intake and Output Vital Signs (last 24 hours): Temp Pulse Resp BP Pulse Ox 97.7 F 94 H 20 131/73 98 03/01/18 21:00 03/01/18 21:00 03/01/18 21:00 03/01/18 21:00 03/01/18 21:00 - Medications Medications: Current Medications Acetazolamide (Diamox Sequels 500 Mg Sr Cap) 500 mg PO Q12 [facility] Last Admin: 03/02/18 08:22 Dose: 500 mg Albuterol (Ventolin Hfa 90 Mcg/Actuation (8 G)) 2 puff IH RQ4 PRN PRN Reason: Shortness of Breath Last Admin: 03/01/18 18:07 Dose: 2 puff Albuterol/Ipratropium (Duoneb 3 Mg/0.5 Mg (3 Ml) Ud) 3 ml INH RQID [facility] Last Admin: 03/02/18 07:20 Dose: 3 ml Alprazolam (Xanax) 0.25 mg PO Q8 PRN PRN Reason: Anxiety Last Admin: 03/02/18 09:24 Dose: 0.25 mg Cholecalciferol (Vitamin D) 1,000 intlu PO DAILY [facility] Last Admin: 03/02/18 08:24 Dose: 1,000 intlu Enoxaparin Sodium (Lovenox) 40 mg SC DAILY [facility] PRN Reason: Protocol Last Admin: 03/02/18 08:21 Dose: 40 mg Fluticasone Propionate (Flonase) 2 spr KIRBY BID [facility] Last Admin: 03/02/18 08:23 Dose: 2 spr Home Med (Patient's Own Medication) 1 unit PO DAILY [facility] Last Admin: 03/02/18 08:22 Dose: 1 unit Levalbuterol HCl (Xopenex) 1.25 mg INH RQ4 PRN PRN Reason: Shortness of Breath Last Admin: 03/02/18 05:30 Dose: 1.25 mg Loratadine (Claritin) 10 mg PO DAILY [facility] Last Admin: 03/02/18 08:22 Dose: 10 mg Oxycodone/Acetaminophen (Percocet 5/325 Mg Tab) 1 tab PO Q6 PRN PRN Reason: Pain, moderate (4-7) Stop: 03/04/18 22:37 Last Admin: 03/02/18 05:28 Dose: 1 tab Pantoprazole Sodium (Protonix Ec Tab) 40 mg PO DAILY [facility] Last Admin: 03/02/18 08:22 Dose: 40 mg Potassium Chloride (K-Dur 20 Meq Er Tab) 20 meq PO BID [facility] Prednisone (Prednisone Tab) 10 mg PO DAILY [facility] Last Admin: 03/02/18 08:23 Dose: 10 mg Promethazine HCl/Dextromethorphan (Phenergan Dm Syrup) 10 ml PO Q6 PRN PRN Reason: Cough Last Admin: 03/02/18 08:22 Dose: 10 ml Sodium Chloride ([place] Nasal [place]) 1 sprays KIRBY Q4 PRN PRN Reason: Nasal congestion Last Admin: 03/01/18 17:01 Dose: 1 spr - Labs Labs: 02/28/18 05:30 03/01/18 07:44 - Constitutional Appears: No Acute Distress - Head Exam Head Exam: NORMAL INSPECTION - Eye Exam Eye Exam: EOMI, Normal appearance - ENT Exam ENT Exam: Mucous Membranes Moist - Neck Exam Neck Exam: Full ROM. absent: Meningismus - Respiratory Exam Respiratory Exam: Decreased Breath Sounds, NORMAL BREATHING PATTERN. absent: Rales, Rhonchi, Wheezes - Cardiovascular Exam Cardiovascular Exam: +S1, +S2 - GI/Abdominal Exam GI & Abdominal Exam: Soft, Normal Bowel Sounds. absent: Guarding, Rigid, Tenderness - Neurological Exam Neurological Exam: Alert, Awake, Oriented x3 Assessment and Plan - Assessment and Plan (Free Text) Assessment: 57 y/o F with a PMHx of advanced stage COPD/Lymphangioleiomyomatosis, former cigarette smoker, obesity, chronic pain syndrome, anxiety, admitted for rehabilitation. PLAN: Advanced COPD/Lymphangioleiomyomatosis -Afebrile -C/ maneaement as per Oil Heat Technician, Dr. Interiano. -Flonase BID for nasal congestion. -Physical therapy Hypokalemia -Serum K+ 3.7 yesterday. -Continue w/Potassium Chloride 20mEQ PO TID -F/U BMP Chronic Pain syndrome -Continue Percocet, -Sertraline 25 mg po qhs -Physical therapy Anxiety -Xanax 0.25mg Q8H PRN Diet -regular diet DVT prophylaxis -Lovenox 40 mg sc daily <Garrick Araujo A - Last Filed: 03/03/18 06:52> Objective - Vital Signs/Intake and Output Vital Signs (last 24 hours): Temp Pulse Resp BP Pulse Ox 97.7 F 96 H 20 114/83 100 03/02/18 20:03 03/02/18 20:03 03/02/18 20:03 03/02/18 20:03 03/02/18 20:03 - Medications Medications: Current Medications Acetazolamide (Diamox Sequels 500 Mg Sr Cap) 500 mg PO Q12 [facility] Last Admin: 03/02/18 22:21 Dose: 500 mg Albuterol (Ventolin Hfa 90 Mcg/Actuation (8 G)) 2 puff IH RQ4 PRN PRN Reason: Shortness of Breath Last Admin: 03/01/18 18:07 Dose: 2 puff Albuterol/Ipratropium (Duoneb 3 Mg/0.5 Mg (3 Ml) Ud) 3 ml INH RQID [facility] Last Admin: 03/02/18 20:49 Dose: 3 ml Alprazolam (Xanax) 0.25 mg PO Q8 PRN PRN Reason: Anxiety Last Admin: 03/02/18 23:12 Dose: 0.25 mg Cholecalciferol (Vitamin D) 1,000 intlu PO DAILY [facility] Last Admin: 03/02/18 08:24 Dose: 1,000 intlu Enoxaparin Sodium (Lovenox) 40 mg SC DAILY [facility] PRN Reason: Protocol Last Admin: 03/02/18 08:21 Dose: 40 mg Fluticasone Propionate (Flonase) 2 spr KIRBY BID [facility] Last Admin: 03/02/18 17:31 Dose: 2 spr Home Med (Patient's Own Medication) 1 unit PO DAILY [facility] Last Admin: 03/02/18 08:22 Dose: 1 unit Levalbuterol HCl (Xopenex) 1.25 mg INH RQ4 PRN PRN Reason: Shortness of Breath Last Admin: 03/03/18 04:32 Dose: 1.25 mg Loratadine (Claritin) 10 mg PO DAILY [facility] Last Admin: 03/02/18 08:22 Dose: 10 mg Oxycodone/Acetaminophen (Percocet 5/325 Mg Tab) 1 tab PO Q6 PRN PRN Reason: Pain, moderate (4-7) Stop: 03/04/18 22:37 Last Admin: 03/03/18 04:19 Dose: 1 tab Pantoprazole Sodium (Protonix Ec Tab) 40 mg PO DAILY [facility] Last Admin: 03/02/18 08:22 Dose: 40 mg Potassium Chloride (K-Dur 20 Meq Er Tab) 20 meq PO BID [facility] 234 [facility] Last Admin: 03/02/18 17:32 Dose: 20 meq Prednisone (Prednisone Tab) 10 mg PO DAILY [facility] Last Admin: 03/02/18 08:23 Dose: 10 mg Promethazine HCl/Dextromethorphan (Phenergan Dm Syrup) 10 ml PO Q6 PRN PRN Reason: Cough Last Admin: 03/02/18 22:21 Dose: 10 ml Simethicone (Mylicon Chew Tab) 80 mg PO [facility] PRN PRN Reason: Flatulence Sodium Chloride ([place] Nasal [place]) 1 sprays KIRBY Q4 PRN PRN Reason: Nasal congestion Last Admin: 03/01/18 17:01 Dose: 1 spr - Labs Labs: 02/28/18 05:30 03/02/18 11:03 Attending/Attestation - Attestation I have personally seen and examined this patient.: Yes I have fully participated in the care of the patient.: Yes I have reviewed all pertinent clinical information, including history, physical exam and plan: Yes
[2018-03-02 11:30] LABS: BLOOD UREA NITROGEN 16 mg/dl (7-17); CALCIUM 9.2 mg/dL (8.4-10.2); GFR AFRICAN-AMERICAN > 60; GFR NON-AFRICAN AMERICAN > 60
[2018-03-02] MEDS ORDERED: Simethicone 80 mg Chewtab PO PRN (14:06)
[2018-03-03] MEDS: Oxycodone/Acetaminophen 5/325 mg Tab PO PRN ×2 (04:19→10:18)
[2018-03-03] MEDS: Levalbuterol 1.25 MG/3 ML Inhal Soln UD INH PRN ×3 (04:32→14:03)
[2018-03-03] MEDS: Albuterol-Ipratrop 3 mg / 0.5 (3 ml) UD INH SCH ×3 (07:49→15:00)
[2018-03-03] MEDS: acetaZOLAMIDE 500 mg SR Cap PO SCH (08:51)
[2018-03-03] MEDS: Enoxaparin 40 mg Syringe SC SCH (08:51)
[2018-03-03] MEDS: Cholecalciferol 1,000 INTLU TAB PO SCH (08:51)
[2018-03-03] MEDS: DALIRESP 250 MCG PO SCH (08:51)
[2018-03-03] MEDS: Potassium Chloride 20 mEq ER Tab PO SCH (08:51)
[2018-03-03] MEDS: Pantoprazole 40 mg EC Tab PO SCH (08:52)
--- NOTE | 2018-03-03 15:16 | CP.PCM.DIS ---
Provider - Provider Date of Admission: 02/23/18 15:58 Attending physician: Juan Meza MD Primary care physician: Dr Meza. Consults: Pulmonology: Dr Interiano Psych: Dr Rush Time Spent in preparation of Discharge (in minutes): 25 Diagnosis - Discharge Diagnosis (1) COPD (chronic obstructive pulmonary disease) Status: Chronic Priority: High (2) Lymphangioleiomyomatosis Status: Chronic Priority: High Hospital Course - Lab Results Lab Results: Most Recent Lab Values WBC 9.8 K/uL (4.8-10.8) 02/28/18 05:30 RBC 3.92 Mil/uL (3.80-5.20) 02/28/18 05:30 Hgb 11.6 g/dL (12.0-16.0) L 02/28/18 05:30 Hct 36.2 % (34.0-47.0) 02/28/18 05:30 MCV 92.3 fl (81.0-99.0) 02/28/18 05:30 MCH 29.6 pg (27.0-31.0) 02/28/18 05:30 MCHC 32.0 g/dL (33.0-37.0) L 02/28/18 05:30 RDW 14.3 % (11.5-14.5) 02/28/18 05:30 Plt Count 267 K/uL (130-400) 02/28/18 05:30 MPV 7.7 fl (7.2-11.7) 02/28/18 05:30 Neut % (Auto) 59.2 % (50.0-75.0) 02/28/18 05:30 Lymph % (Auto) 26.8 % (20.0-40.0) 02/28/18 05:30 [place] % (Auto) 12.0 % (0.0-10.0) H 02/28/18 05:30 Eos % (Auto) 1.7 % (0.0-4.0) 02/28/18 05:30 Baso % (Auto) 0.3 % (0.0-2.0) 02/28/18 05:30 Neut # (Auto) 5.8 K/uL (1.8-7.0) 02/28/18 05:30 Lymph # (Auto) 2.6 K/uL (1.0-4.3) 02/28/18 05:30 [place] # (Auto) 1.2 K/uL (0.0-0.8) H 02/28/18 05:30 Eos # (Auto) 0.2 K/uL (0.0-0.7) 02/28/18 05:30 Baso # (Auto) 0.0 K/uL (0.0-0.2) 02/28/18 05:30 Sodium 143 mmol/l (132-148) 03/02/18 11:03 Potassium 3.9 MMOL/L (3.6-5.0) 03/02/18 11:03 Chloride 100 mmol/L (98-107) 03/02/18 11:03 Carbon Dioxide 32 mmol/L (22-30) H 03/02/18 11:03 Anion Gap 15 (10-20) 03/02/18 11:03 BUN 16 mg/dl (7-17) 03/02/18 11:03 Creatinine 0.6 mg/dl (0.7-1.2) L 03/02/18 11:03 Est GFR ( Amer) > 60 03/02/18 11:03 Est GFR (Non-Af Amer) > 60 03/02/18 11:03 Random Glucose 101 mg/dL (65-105) 03/02/18 11:03 Calcium 9.2 mg/dL (8.4-10.2) 03/02/18 11:03 Magnesium 2.2 MG/DL (1.6-2.3) 02/28/18 05:30 Urine Color Yellow (YELLOW) 02/24/18 14:50 Urine Clarity Slighty-cloudy (Clear) 02/24/18 14:50 Urine pH 7.0 (5.0-8.0) 02/24/18 14:50 Ur Specific [place] 1.014 (1.003-1.030) 02/24/18 14:50 Urine Protein Negative mg/dL (NEGATIVE) 02/24/18 14:50 Urine Glucose (UA) Neg mg/dL (Normal) 02/24/18 14:50 Urine Ketones Negative mg/dL (NEGATIVE) 02/24/18 14:50 Urine Blood Negative (NEGATIVE) 02/24/18 14:50 Urine Nitrate Negative (NEGATIVE) 02/24/18 14:50 Urine Bilirubin Negative (NEGATIVE) 02/24/18 14:50 Urine Urobilinogen 0.2-1.0 mg/dL (0.2-1.0) 02/24/18 14:50 Ur Leukocyte Esterase Small [place]/uL (Negative) 02/24/18 14:50 Urine RBC (Auto) 1 /hpf (0-3) 02/24/18 14:50 Urine Microscopic WBC 11 /hpf (0-5) H 02/24/18 14:50 Ur Squamous Epith Cells 4 /hpf (0-5) 02/24/18 14:50 Ur Transition Epith Cell 1 /hpf (0-3) 02/24/18 14:50 - Hospital Course Hospital Course: 57 y/o F with a PMHx of JIMENEZ, COPD, recurrent urinary tract infections, endometriosis, depression and progressive deconditioning was admitted for subacute rehabilitation. Pt completed IV antibiotic for pneumonia. Pt received daily sessions of physical therapy. Hospitalization was complicated by hypokalemia which was properly managed and controlled. Pt remained afebrile, respiratory functioning at baseline and tolerating PO. Pt discharged home. - Date & Time of H&P Date of H&P: 02/24/18 Time of H&P: 10:05 Discharge Exam - Head Exam Head Exam: NORMAL INSPECTION - Eye Exam Eye Exam: EOMI - ENT Exam ENT Exam: Mucous Membranes Moist - Neck Exam Neck exam: Full Rom - Respiratory Exam Respiratory Exam: Decreased Breath Sounds, NORMAL BREATHING PATTERN. absent: Wheezes, Respiratory Distress, Stridor - Cardiovascular Exam Cardiovascular Exam: REGULAR RHYTHM, +S1, +S2 - GI/Abdominal Exam GI & Abdominal Exam: Normal Bowel Sounds, Soft, Unremarkable. absent: Distended , Guarding, Tenderness - Extremities Exam Extremities exam: full ROM, normal inspection, pedal pulses present - Neurological Exam Neurological exam: Alert, Oriented x3 - Psychiatric Exam Psychiatric exam: Normal Mood Discharge Plan - Follow Up Plan Condition: GOOD Disposition: HOME/ ROUTINE Instructions: Respiratory Distress Syndrome, Adult (DC), Preventing Falls Additional Instructions: FOLLOW UP WITH PRIMARY MD IN 1 WEEK. Referrals: eWndie Rush [Staff Provider] - Randy Interiano MD [Staff Provider] -
[2018-03-03] MEDS: Albuterol HFA 90 mcg/actuation (8 g) IH PRN (16:19)
[2018-03-03 16:21] VITALS: BP 124/80; PULSE 119; TEMP 98.7; O2SAT 97
== END 2018-03-03 16:30 | disposition home or self-care (01) | DRG 193 ==
LOC: H.TCU 15:58
PROVIDERS: ADMIT Family Medicine; ATTEND Family Medicine
PROC: F08Z1FZ Dressing Techniques Treatment using Assistive, Adaptive, Supportive or Protective Equipment (ICD-10-PCS; principal; 2018-02-23)
PROC: F08Z0FZ Bathing/Showering Techniques Treatment using Assistive, Adaptive, Supportive or Protective Equipment (ICD-10-PCS; 2018-02-23)
PROC: F07Z9FZ Gait Training/Functional Ambulation Treatment using Assistive, Adaptive, Supportive or Protective Equipment (ICD-10-PCS; 2018-02-23)
PROC: F07L6ZZ Therapeutic Exercise Treatment of Musculoskeletal System - Lower Back / Lower Extremity (ICD-10-PCS; 2018-02-23)
PROC: F07Z5ZZ Bed Mobility Treatment (ICD-10-PCS; 2018-02-23)
PROC: F07Z8ZZ Transfer Training Treatment (ICD-10-PCS; 2018-02-23)
PROC: 5A0955Z Assistance with Respiratory Ventilation, Greater than 96 Consecutive Hours (ICD-10-PCS; 2018-02-23)
DX: J18.9 Pneumonia, unspecified organism (principal); J84.81 Lymphangioleiomyomatosis; J96.12 Chronic respiratory failure with hypercapnia; J44.0 Chronic obstructive pulmonary disease with (acute) lower respiratory infection; F33.9 Major depressive disorder, recurrent, unspecified; E87.6 Hypokalemia; G89.4 Chronic pain syndrome; Z88.2 Allergy status to sulfonamides; Z87.891 Personal history of nicotine dependence; E66.9 Obesity, unspecified; Z68.29 Body mass index [BMI] 29.0-29.9, adult; F41.9 Anxiety disorder, unspecified; R53.1 Weakness

== ENCOUNTER 2018-04-04 15:09 | Inpatient (IN) | payer MEDICARE, MEDICAID ==
[2018-04-04 15:09] VITALS: BMI 30.2
--- NOTE | 2018-04-04 15:35 | ED PDOC ---
HPI: SOB/CHF/COPD Time Seen by Provider: 04/04/18 15:34 Chief Complaint (Nursing): Shortness Of Breath Chief Complaint (Provider): SOB History Per: Patient Additional Complaint(s): 57 year old female with history of COPD presents with cough, chest pain and chills for the past 2 days. Patient is on 2 L of oxygen all times at home. She states that her usual inhaled medications for COPD are not helping her symptoms. Patient denies any fever but does have chills and body aches. No associated vomiting but patient does feel nauseous. PMD: Dr. Cardona Geospatial Information Technologist: Dr. Interiano Past Medical History Reviewed: Historical Data, Nursing Documentation, Vital Signs Vital Signs: Last Vital Signs Temp 98.2 F 04/04/18 15:29 Pulse 84 04/04/18 15:46 Resp 18 04/04/18 15:46 BP 121/81 04/04/18 15:46 Pulse Ox 97 04/04/18 17:26 - Medical History PMH: Anxiety, Asthma, Back Problems, COPD, Depression - Family History Family History: States: No Known Family Hx - Living Arrangements Living Arrangements: Alone - Social History Current smoker - smoking cessation education provided: No Ex-Smoker (has not smoked in the last 12 months): Yes (quit 2 years ago) Alcohol: None Drugs: Denies - Home Medications Home Medications: Ambulatory Orders Medication Instructions Recorded Albuterol Sulfate [Proair Hfa] 2 puff IH Q4 PRN 02/20/18 Alprazolam [Xanax] 0.25 mg PO Q8 PRN 02/20/18 Cetirizine HCl [Wal-Zyr] 10 mg PO 02/20/18 Cholecalciferol [Vitamin D 1000 IU] 1,000 unit PO DAILY 02/20/18 Fluticasone Propionate [Flovent 1 puff IH Q12 02/20/18 Diskus] Oxycodone HCl/Acetaminophen 1 tab PO Q6 PRN 02/20/18 [Percocet 7.5-325 mg Tablet] Pantoprazole Sodium [Protonix] 40 mg PO DAILY 02/20/18 Sertraline [Zoloft] 50 mg PO HS 02/20/18 acetaZOLAMIDE [Acetazolamide] 500 mg PO Q12 02/20/18 predniSONE [predniSONE Tab] 10 mg PO ASDIR 02/20/18 Albuterol 0.083% [Albuterol 0.083% 2.5 mg INH RQ4 PRN neb 02/23/18 Inhal [place] (2.5 mg/3 ml) UD] Albuterol/Ipratropium [Duoneb 3 3 ml INH RQID neb 02/23/18 mg/0.5 mg (3 ml) UD] Loratadine [Claritin] 10 mg PO DAILY tab 02/23/18 Promethazine DM [Phenergan DM 10 ml PO Q6 PRN dose 02/23/18 Syrup] oxyCODONE/Acetaminophen [Percocet 1 tab PO Q6 PRN tab 02/23/18 5/325 mg Tab] Fluticasone Propionate [Flonase] 2 spr KIRBY BID bottle 03/03/18 Potassium Chloride [K-Dur 20 mEq 20 meq PO BID tab 03/03/18 ER Tab] Roflumilast [Daliresp] 250 mcg PO DAILY 03/03/18 Simethicone [Mylicon Chew Tab] 80 mg PO PCHS PRN chew 03/03/18 oxyCODONE/Acetaminophen [Percocet 1 tab PO Q6 PRN tab 03/03/18 5/325 mg Tab] predniSONE [predniSONE Tab] 10 mg PO DAILY tab 03/03/18 - Allergies Allergies/Adverse Reactions: Allergies Allergy/AdvReac Type Severity Reaction Status Date / Time Sulfa (Sulfonamide Allergy RASH Verified 04/04/18 15:29 Antibiotics) Curb-65 Severity Score - CURB-65 Severity Score Confusion: No Respiratory Rate greater than/equal to 30: No Systolic BP <90 or Diastolic BP less than/equal 60mmHg: No Age >64: No Curb-65 Score: 0 Percentage 30-day mortality: 0.6% Wells Criteria for PE - Wells Criteria for Pulmonary Embolism Clinical Signs and Symptoms of DVT: No P.E is #1 Diagnosis, or Equally Likely: No Heart Rate >100: No Immobilization at least 3 days;Surgery previous 4 weeks: No Previous, objectively diagnosed PE or DVT: No Hemoptysis: No Malignancy w/treatment within 6 months, or palliative: No Total Score: 0 Review of Systems ROS Statement: Except As Marked, All Systems Reviewed And Found Negative Constitutional: Positive for: Chills, Other (body aches). Negative for: Fever Cardiovascular: Positive for: Chest Pain (due to cough) Respiratory: Positive for: Cough, Shortness of Breath, SOB with Exertion, Pleuritic Pain. Negative for: Hemoptysis, Sputum (dry cough) Gastrointestinal: Positive for: Nausea. Negative for: Vomiting, Abdominal Pain , Diarrhea, Constipation Genitourinary Female: Negative for: Dysuria Neurological: Negative for: Headache, Dizziness Physical Exam - Reviewed Nursing Documentation Reviewed: Yes Vital Signs Reviewed: Yes - Physical Exam Appears: Positive for: Well, Non-toxic, No Acute Distress Skin: Positive for: Normal Color. Negative for: Rash Eye Exam: Positive for: Normal appearance Cardiovascular/Chest: Positive for: Regular Rate, Rhythm Respiratory: Positive for: Decreased Breath Sounds, Accessory Muscle Use, Respiratory Distress (mild) Gastrointestinal/Abdominal: Positive for: Soft. Negative for: Tenderness Back: Negative for: L CVA Tenderness, R CVA Tenderness Extremity: Positive for: Normal ROM. Negative for: Pedal Edema Neurologic/Psych: Positive for: Alert, Oriented - Laboratory Results Result Diagrams: 04/04/18 16:00 04/04/18 16:00 - ECG Interpretation Of ECG: Sinus tachycardia 102 bpm, no ST elevations, reviewed by PA and ED attending. O2 Sat by Pulse Oximetry: 97 Pulse Ox Interpretation: Normal - Other Rad CXR X-Ray: Interpreted by Me, Viewed By Me X-Ray Interpretation: emphysema, no acute finding, no interval change Nebulizer Treatments/Peak Flow - Duonebs Number of Bronchodilator Doses given?: 3 (duoned) - Steroid Treatment Steroid: IV (125 mg IV solumedrol) - Clinical Response Clinical Response: Unchanged (Patient does not feel any better despite 3 DuoNeb treatments and IV Solu-Medrol.) Medical Decision Making Medical Decision Makin57 year old with SOB Plan: EKG CXR IV solumedrol Duoneb x 3 CBC CMP Blood cultures Trop D-dimer VBG Patient reports minimal improvement after meds given. Call placed to patient's cd mixer Dr. Interiano who states to admit to hospitalist and he will see patient in AM. PMD is Dr. Cardona, hospitalist, Dr. Jiménez to admit patient to obs-tele. Disposition - Clinical Impression Clinical Impression: COPD exacerbation, SOB (shortness of breath) - Patient ED Disposition Is Patient to be Admitted: Yes - Disposition Disposition Time: 17:46 Condition: FAIR Forms: [email or web address] (Maltese) - Pt Status Changed To: Hospital Disposition Of: Observation - POA Present On Arrival: None Results - Lab Results Lab Results: 04/04/18 04/04/18 04/04/18 16:39 16:00 16:00 WBC 6.0 RBC 4.43 Hgb 13.0 Hct 39.9 MCV 90.2 D MCH 29.4 MCHC 32.6 L RDW 13.6 Plt Count 325 MPV 8.0 Neut % (Auto) 64.3 Lymph % (Auto) 21.9 [place] % (Auto) 12.2 H Eos % (Auto) 1.2 Baso % (Auto) 0.4 Neut # (Auto) 3.8 Lymph # (Auto) 1.3 [place] # (Auto) 0.7 Eos # (Auto) 0.1 Baso # (Auto) 0.0 D-Dimer, Quantitative 115 pO2 27 L VBG pH 7.28 L VBG pCO2 74 H* VBG HCO3 27.7 VBG Total CO2 37.1 H VBG O2 Sat (Calc) 53.4 VBG Base Excess 5.5 H VBG Potassium 3.9 Glucose 96 Lactate 1.1 FiO2 21.0 Crit Value Called To Mera myers Crit Value Called By 6075 Crit Value Read Back Y Blood Gas Notified Time 1645 Sodium 138.0 Potassium Chloride 103.0 Carbon Dioxide Anion Gap BUN Creatinine Est GFR ( Amer) Est GFR (Non-Af Amer) Random Glucose Calcium Total Bilirubin AST ALT Alkaline Phosphatase Troponin I NT-Pro-B Natriuret Pep Total Protein Albumin Globulin Albumin/Globulin Ratio Venous Blood Potassium 3.9 04/04/18 16:00 WBC RBC Hgb Hct MCV MCH MCHC RDW Plt Count MPV Neut % (Auto) Lymph % (Auto) [place] % (Auto) Eos % (Auto) Baso % (Auto) Neut # (Auto) Lymph # (Auto) [place] # (Auto) Eos # (Auto) Baso # (Auto) D-Dimer, Quantitative pO2 VBG pH VBG pCO2 VBG HCO3 VBG Total CO2 VBG O2 Sat (Calc) VBG Base Excess VBG Potassium Glucose Lactate FiO2 Crit Value Called To Crit Value Called By Crit Value Read Back Blood Gas Notified Time Sodium 141 Potassium 4.1 Chloride 100 Carbon Dioxide 31 H Anion Gap 14 BUN 12 Creatinine 0.6 L Est GFR ( Amer) > 60 Est GFR (Non-Af Amer) > 60 Random Glucose 94 Calcium 9.6 Total Bilirubin 0.9 AST 43 H D ALT 35 Alkaline Phosphatase 63 Troponin I < 0.0120 NT-Pro-B Natriuret Pep 23.1 Total Protein 7.5 Albumin 4.2 Globulin 3.3 Albumin/Globulin Ratio 1.3 Venous Blood Potassium
[2018-04-04] MEDS ORDERED: Albuterol-Ipratrop 3 mg / 0.5 (3 ml) UD INH STA (15:47)
[2018-04-04] MEDS ORDERED: Albuterol-Ipratrop 3 mg / 0.5 (3 ml) UD ONE (15:52)
--- NOTE | 2018-04-04 16:44 | RAD ---
HISTORY: SOB COMPARISON: Chest radiograph 02/20/2018. FINDINGS: LUNGS: Diffuse interstitial pulmonary disease is reiterated with potential underlying COPD/ emphysema. No acute consolidation bilaterally. PLEURA: No significant pleural effusion identified, no pneumothorax apparent. CARDIOVASCULAR: Normal. OSSEOUS STRUCTURES: No significant abnormalities. VISUALIZED UPPER ABDOMEN: Normal. OTHER FINDINGS: None. IMPRESSION: Stable COPD changes without acute consolidation, pleural effusion or pneumothorax bilaterally.
[2018-04-04 16:45] LABS: VENOUS BLOOD GAS BASE EXCESS 5.5 mmol/L (0.0-2.0); VENOUS BLOOD GAS PCO2 74 mmHg (40-60); VENOUS BLOOD GAS PO2 27 mm/Hg (30-55); VENOUS BLOOD PH 7.28 (7.32-7.43)
[2018-04-04 16:57] LABS: BASO % 0.4 % (0.0-2.0); EOS # 0.1 K/uL (0.0-0.7); EOS % 1.2 % (0.0-4.0); LYMPH # 1.3 K/uL (1.0-4.3); LYMPH % 21.9 % (20.0-40.0); MEAN CELL VOLUME 90.2 fl (81.0-99.0); MEAN CORPUSCULAR HEMOGLOBIN 29.4 pg (27.0-31.0); MEAN CORPUSCULAR HGB CONC 32.6 g/dL (33.0-37.0); MONO # 0.7 K/uL (0.0-0.8); MONO % 12.2 % (0.0-10.0); NEUT # 3.8 K/uL (1.8-7.0); NEUT % 64.3 % (50.0-75.0); RBC 4.43 Mil/uL (3.80-5.20); RED CELL DISTRIBUTION WIDTH 13.6 % (11.5-14.5)
[2018-04-04 17:05] LABS: ALB/GLOB RATIO 1.3 (1.0-2.1); ALBUMIN 4.2 g/dL (3.5-5.0); CALCIUM 9.6 mg/dL (8.4-10.2); GFR AFRICAN-AMERICAN > 60; GFR NON-AFRICAN AMERICAN > 60
[2018-04-04 17:10] LABS: ALT/SGPT 35 U/L (9-52); AST/SGOT 43 U/L (14-36); BLOOD UREA NITROGEN 12 mg/dl (7-17)
[2018-04-04 17:16] LABS: B-TYPE NATRIURETIC PEPTIDE 23.1 pg/ml (0-900)
--- NOTE | 2018-04-04 19:48 | CP.PCM.HP ---
<BertaJose Ramonhany Fletcher - Last Filed: 04/04/18 19:34> History of Present Illness - History of Present Illness History of Present Illness: CC: dyspnea HPI: 57 y/o woman w/ pmh of JIMENEZ (lymphangioleiomyomatosis), COPD, endometriosis , anxiety, and depression presents to ED w/ dyspnea. Patient reports dyspnea has been ongoing but worsened for the past 2 days. Patient is on home O2 2L at all times. Patient follows up w/ Dr. Interiano for pulmonology. Patient reports feeling worse w/ increase in roflumilast dose. Patient reports chest discomfort w/ cough, non-productive cough, nausea, lightheadedness, some chills , and joint pain. Patient denies fever. Patient was discharged from [facility] 1 month ago from subacute rehab and treated for pneumonia. ED course: VS: 98.2 F, 100 bpm, 132/84 mm Hg, reps 22, O2 97% NC 3 L CBC: 6.0>13.0/39.9<325 VBG: pH 7.28, pCO2 74, HCO3 27.7, pO2 27 CMP: 141/4.1, 100/31, 12/0.6, glucose 94, AST 43, ALT 35, alk phos 63 troponin <0.0120 pro-BNP 23.1 CXR: stable COPD w/o acute consolidation, pleural effusion, or pneumothorax bilaterally given duo nebs x3, solu-medrol 125 mg IV f/u blood culture PMD: Dr Henson in the past, Dr. Cardona currently Marble Polisher: Dr. Interiano PMH: JIMENEZ (lymphangioleiomyomatosis), COPD, endometriosis, anxiety, and depression Medications: see med list Allergies: Sulfa drugs result in generalized rash PSH: Video-assisted thoracoscopy and lung biopsy because of recurrent spontaneous pneumothorax, D&C for uterine fibroids, benign breast cyst removal Fam: mother age 60 from breast cancer, father age 803 from kidney problem, brother has DM2 SOC: quit smoking 2 years ago, smoked 1 pack/day for about 25 years, denies alcohol and drugs ROS: 12 points assessed and negative unless otherwise reported in HPI Present on Admission - Present on Admission Any Indicators Present on Admission: No History of DVT/PE: No History of Uncontrolled Diabetes: No Urinary Catheter: No Decubitus Ulcer Present: No Review of Systems - Review of Systems All systems: reviewed and no additional remarkable complaints except - Constitutional Constitutional: As Per HPI, Chills. absent: Fever - EENT Eyes: absent: Change in Vision - Cardiovascular Cardiovascular: absent: Chest Pain - Respiratory Respiratory: As Per HPI, Dyspnea, Dyspnea on Exertion, Pain with Coughing - Gastrointestinal Gastrointestinal: Nausea. absent: Abdominal Pain, Diarrhea, Vomiting - Genitourinary Genitourinary: absent: Dysuria - Integumentary Integumentary: absent: Rash Past Patient History - Infectious Disease Hx of Infectious Diseases: None - Past Medical History & Family History Past Medical History?: Yes - Past Social History Alcohol: None Drugs: Denies - CARDIAC Hx Congestive Heart Failure: No Hx Hypercholesterolemia: No Hx Hypertension: No - PULMONARY Hx Asthma: Yes Hx Chronic Obstructive Pulmonary Disease (COPD): Yes - NEUROLOGICAL Hx Neurological Disorder: No - HEENT Hx HEENT Problems: Yes Other/Comment: eye glasses - RENAL Hx Chronic Kidney Disease: No - ENDOCRINE/METABOLIC Hx Hypothyroidism: No - HEMATOLOGICAL/ONCOLOGICAL Hx Human Immunodeficiency Virus (HIV): No - INTEGUMENTARY Hx Dermatological Problems: No - MUSCULOSKELETAL/RHEUMATOLOGICAL Hx Arthritis: No Hx Rheumatoid Arthritis: No - GASTROINTESTINAL Hx Gastrointestinal Disorders: No - GENITOURINARY/GYNECOLOGICAL Hx Urinary Tract Infection: Yes Other/Comment: endometriosis,uterine fibroids - PSYCHIATRIC Hx Anxiety: Yes Hx Depression: Yes - SURGICAL HISTORY Hx Pulmonary Surgery: Yes (VATS lung biopsy and pleurodesis) Other/Comment: breast cyst removal (benign), D&C for uterine fibroids, chest tube x2 (spontaneous pneumothorax) with lung biopsy done on second episode. - ANESTHESIA Hx Anesthesia: Yes Hx Anesthesia Reactions: No Hx Malignant Hyperthermia: No Meds Allergies/Adverse Reactions: Allergies Allergy/AdvReac Type Severity Reaction Status Date / Time Sulfa (Sulfonamide Allergy RASH Verified 04/04/18 15:29 Antibiotics) Physical Exam - Constitutional Appears: Non-toxic, No Acute Distress - Head Exam Head Exam: ATRAUMATIC, NORMAL INSPECTION, NORMOCEPHALIC - Eye Exam Eye Exam: Normal appearance - ENT Exam ENT Exam: Mucous Membranes Moist - Neck Exam Neck exam: Positive for: Full Rom. Negative for: Tenderness - Respiratory Exam Respiratory Exam: Decreased Breath Sounds, Wheezes (scattered bilateral). absent: Accessory Muscle Use, Rales, Rhonchi, Respiratory Distress - Cardiovascular Exam Cardiovascular Exam: REGULAR RHYTHM - GI/Abdominal Exam GI & Abdominal Exam: Normal Bowel Sounds, Soft. absent: Distended, Tenderness - Extremities Exam Extremities exam: Negative for: calf tenderness - Neurological Exam Neurological exam: Alert, Oriented x3 - Skin Skin Exam: Dry, Intact, Normal Color, Warm Results - Vital Signs Recent Vital Signs: Last Vital Signs Temp 98.2 F 04/04/18 15:29 Pulse 84 04/04/18 15:46 Resp 18 04/04/18 15:46 BP 121/81 04/04/18 15:46 Pulse Ox 97 04/04/18 19:13 - Labs Result Diagrams: 04/04/18 16:00 04/04/18 16:00 Labs: Laboratory Results - last 24 hr 04/04/18 04/04/18 04/04/18 16:00 16:00 16:00 WBC 6.0 RBC 4.43 Hgb 13.0 Hct 39.9 MCV 90.2 D MCH 29.4 MCHC 32.6 L RDW 13.6 Plt Count 325 MPV 8.0 Neut % (Auto) 64.3 Lymph % (Auto) 21.9 [place] % (Auto) 12.2 H Eos % (Auto) 1.2 Baso % (Auto) 0.4 Neut # (Auto) 3.8 Lymph # (Auto) 1.3 [place] # (Auto) 0.7 Eos # (Auto) 0.1 Baso # (Auto) 0.0 D-Dimer, Quantitative 115 pO2 VBG pH VBG pCO2 VBG HCO3 VBG Total CO2 VBG O2 Sat (Calc) VBG Base Excess VBG Potassium Glucose Lactate FiO2 Crit Value Called To Crit Value Called By Crit Value Read Back Blood Gas Notified Time Sodium 141 Potassium 4.1 Chloride 100 Carbon Dioxide 31 H Anion Gap 14 BUN 12 Creatinine 0.6 L Est GFR ( Amer) > 60 Est GFR (Non-Af Amer) > 60 Random Glucose 94 Calcium 9.6 Total Bilirubin 0.9 AST 43 H D ALT 35 Alkaline Phosphatase 63 Troponin I < 0.0120 NT-Pro-B Natriuret Pep 23.1 Total Protein 7.5 Albumin 4.2 Globulin 3.3 Albumin/Globulin Ratio 1.3 Venous Blood Potassium 04/04/18 16:39 WBC RBC Hgb Hct MCV MCH MCHC RDW Plt Count MPV Neut % (Auto) Lymph % (Auto) [place] % (Auto) Eos % (Auto) Baso % (Auto) Neut # (Auto) Lymph # (Auto) [place] # (Auto) Eos # (Auto) Baso # (Auto) D-Dimer, Quantitative pO2 27 L VBG pH 7.28 L VBG pCO2 74 H* VBG HCO3 27.7 VBG Total CO2 37.1 H VBG O2 Sat (Calc) 53.4 VBG Base Excess 5.5 H VBG Potassium 3.9 Glucose 96 Lactate 1.1 FiO2 21.0 Crit Value Called To Mera myers Crit Value Called By 6075 Crit Value Read Back Y Blood Gas Notified Time 1645 Sodium 138.0 Potassium Chloride 103.0 Carbon Dioxide Anion Gap BUN Creatinine Est GFR ( Amer) Est GFR (Non-Af Amer) Random Glucose Calcium Total Bilirubin AST ALT Alkaline Phosphatase Troponin I NT-Pro-B Natriuret Pep Total Protein Albumin Globulin Albumin/Globulin Ratio Venous Blood Potassium 3.9 Assessment & Plan - Assessment and Plan (Free Text) Assessment: 57 y/o woman w/ pmh of JIMENEZ (lymphangioleiomyomatosis), COPD, endometriosis, anxiety, and depression presents to ED w/ dyspnea Plan: Dyspnea - most likely secondary to COPD exacerbation - VS: 98.2 F, 100 bpm, 132/84 mm Hg, reps 22, O2 97% NC 3 L - CBC: 6.0>13.0/39.9<325 - VBG: pH 7.28, pCO2 74, HCO3 27.7, pO2 27 - CMP: 141/4.1, 100/31, 12/0.6, glucose 94, AST 43, ALT 35, alk phos 63 - troponin <0.0120 - pro-BNP 23.1 - CXR: stable COPD w/o acute consolidation, pleural effusion, or pneumothorax bilaterally - given duo nebs x3, solu-medrol 125 mg IV - f/u ABG - f/u CXR - pulmonology consult ordered, Dr. Interiano aware - duonebs Q4h karol - albuterol 2.5 mg Q4h prn - solu-medrol 80 mg IV Q12h - monitor for acute changes - admit to Tele [facility] - afebrile - Hx of recent admission for pneumonia - WBC WNL - lactate 1.1 - f/u blood culture Prophylactic measures - DVT: lovenox 40 mg SC daily <Juan Meza - Last Filed: 04/06/18 07:02> Results - Vital Signs Recent Vital Signs: Last Vital Signs Temp 97.5 F L 04/06/18 05:01 Pulse 88 04/06/18 05:01 Resp 18 04/06/18 05:01 BP 98/61 L 04/06/18 05:01 Pulse Ox 99 04/06/18 05:01 - Labs Result Diagrams: 04/06/18 05:33 04/06/18 05:33 Labs: Laboratory Results - last 24 hr 04/06/18 04/06/18 05:33 05:33 WBC 14.4 H D RBC 4.43 Hgb 13.0 Hct 39.8 MCV 89.9 MCH 29.3 MCHC 32.6 L RDW 13.6 Plt Count 334 MPV 7.8 Neut % (Auto) 76.9 H Lymph % (Auto) 11.3 L [place] % (Auto) 11.6 H Eos % (Auto) 0.1 Baso % (Auto) 0.1 Neut # (Auto) 11.1 H Lymph # (Auto) 1.6 [place] # (Auto) 1.7 H Eos # (Auto) 0.0 Baso # (Auto) 0.0 Sodium 143 Potassium 3.3 L Chloride 104 Carbon Dioxide 29 Anion Gap 13 BUN 15 Creatinine 0.6 L Est GFR ( Amer) > 60 Est GFR (Non-Af Amer) > 60 Random Glucose 96 Calcium 9.3 Attending/Attestation - Attestation I have personally seen and examined this patient.: Yes I have fully participated in the care of the patient.: Yes I have reviewed all pertinent clinical information: Yes
[2018-04-04] MEDS ORDERED: Albuterol-Ipratrop 3 mg / 0.5 (3 ml) UD INH SCH ×2 (20:00→21:00)
[2018-04-04] MEDS: Albuterol-Ipratrop 3 mg / 0.5 (3 ml) UD INH SCH (23:22)
[2018-04-05] MEDS ORDERED: Oxycodone/Acetaminophen 5/325 mg Tab PO ONE ×2 (02:04→09:39)
[2018-04-05] MEDS: Albuterol-Ipratrop 3 mg / 0.5 (3 ml) UD INH SCH ×2 (04:40→07:27)
[2018-04-05 06:40] LABS: ABG ALLEN TEST YES; ARTERIAL BLOOD GAS HCO3 28.5 mmol/L (21-28); ARTERIAL BLOOD GAS HEMOGLOBIN 13.6 g/dL (11.7-17.4); ARTERIAL BLOOD GAS O2 CAPACITY 18.5 mL/dL (16-24); ARTERIAL BLOOD GAS O2 CONTENT 18.4 ML/dL (15-23); ARTERIAL BLOOD GAS O2 SAT 99.3 % (95-98); ARTERIAL BLOOD GAS PCO2 56 mm/Hg (35-45); ARTERIAL BLOOD GAS PH 7.36 (7.35-7.45); ARTERIAL BLOOD GAS PO2 98 mm/Hg (80-100); ARTERIAL BLOOD GAS TCO2 33.3 mmol/L (22-28)
--- NOTE | 2018-04-05 07:58 | CP.PCM.PN ---
<Ade Mccoy - Last Filed: 04/05/18 17:00> Subjective - Date & Time of Evaluation Date of Evaluation: 04/05/18 Time of Evaluation: 07:58 - Subjective Subjective: No acute overnight events. Pt states that she is feeling better this morning. Breathing has improved. States that she has allergies, and uses zertec daily at home. Denies chest pain, dyspnea, n/v/d/c. Objective - Vital Signs/Intake and Output Vital Signs (last 24 hours): Temp Pulse Resp BP Pulse Ox 97.4 F L 102 H 18 123/78 97 04/05/18 05:03 04/05/18 05:03 04/05/18 05:03 04/05/18 05:03 04/05/18 05:03 - Medications Medications: Current Medications Acetazolamide (Diamox Sequels 500 Mg Sr Cap) 500 mg PO DAILY [facility] Albuterol Sulfate (Albuterol 0.083% Inhal Caridad (2.5 Mg/3 Ml) Ud) 2.5 mg INH RQ4 PRN PRN Reason: Shortness of Breath Alprazolam (Xanax) 0.5 mg PO Q8 PRN PRN Reason: Anxiety Cholecalciferol (Vitamin D) 1,000 intlu PO DAILY [facility] Enoxaparin Sodium (Lovenox) 40 mg SC DAILY [facility] PRN Reason: Protocol Levalbuterol HCl (Xopenex) 0.63 mg INH RQ8 PRN PRN Reason: Shortness of Breath Loratadine (Claritin) 5 mg PO Q12 [facility] Prednisone (Prednisone Tab) 40 mg PO DAILY [facility] - Labs Labs: 04/04/18 16:00 04/04/18 16:00 - Constitutional Appears: No Acute Distress, Other (on nebulizer mask ) - Eye Exam Eye Exam: EOMI, Normal appearance - ENT Exam ENT Exam: Mucous Membranes Moist - Respiratory Exam Respiratory Exam: Decreased Breath Sounds (in the lower lobes), Wheezes (mild expiratory wheezing b/l ), NORMAL BREATHING PATTERN - Cardiovascular Exam Cardiovascular Exam: REGULAR RHYTHM, +S1, +S2 - GI/Abdominal Exam GI & Abdominal Exam: Soft, Normal Bowel Sounds. absent: Tenderness - Extremities Exam Extremities Exam: Normal Inspection. absent: Calf Tenderness, Pedal Edema - Neurological Exam Neurological Exam: Alert, Awake - Psychiatric Exam Psychiatric exam: Normal Affect, Normal Mood Assessment and Plan - Assessment and Plan (Free Text) Assessment: Assessment/Plan: 57 YO female with PMHx of JIMENEZ (lymphangioleiomyomatosis), COPD, endometriosis, anxiety, and depression is admitted for COPD exacerbation. COPD exacerbation -dyspnea like 2/2 to COPD exacerbation -CXR: stable COPD w/o acute consolidation, pleural effusion, or pneumothorax bilaterally -c/w home meds -Predisone 40mg daily -pulmonology consult ordered, Dr. Interiano aware Chronic low back pain -Tylenol prn -ultram prn -follow up Seasonal allergies -start PO claritin HS Anxiety/Depression -not on any meds -well controlled DVT prophlx -lovenox 40 mg SC daily <Garrick Araujo - Last Filed: 04/07/18 06:43> Objective - Vital Signs/Intake and Output Vital Signs (last 24 hours): Temp Pulse Resp BP Pulse Ox 97.7 F 83 18 126/79 100 04/07/18 04:59 04/07/18 04:59 04/07/18 04:59 04/07/18 04:59 04/07/18 04:59 - Medications Medications: Current Medications Acetaminophen (Tylenol 325mg Tab) 650 mg PO Q6 PRN PRN Reason: Pain, Mild (1-3) Acetazolamide (Diamox Sequels 500 Mg Sr Cap) 500 mg PO DAILY [facility] Last Admin: 04/06/18 09:15 Dose: 500 mg Albuterol Sulfate (Albuterol 0.083% Inhal Caridad (2.5 Mg/3 Ml) Ud) 2.5 mg INH RQ4 PRN PRN Reason: Shortness of Breath Last Admin: 04/07/18 05:28 Dose: 2.5 mg Alprazolam (Xanax) 0.5 mg PO Q8 PRN PRN Reason: Anxiety Last Admin: 04/06/18 23:47 Dose: 0.5 mg Cholecalciferol (Vitamin D) 1,000 intlu PO DAILY [facility] Last Admin: 04/06/18 09:15 Dose: 1,000 intlu Enoxaparin Sodium (Lovenox) 40 mg SC DAILY [facility] PRN Reason: Protocol Last Admin: 04/06/18 09:16 Dose: 40 mg Fluticasone Propionate (Flonase) 1 spr KIRBY BID [facility] Last Admin: 04/06/18 18:04 Dose: 1 spr Levalbuterol HCl (Xopenex) 0.63 mg INH RQ8 PRN PRN Reason: Shortness of Breath Last Admin: 04/06/18 13:40 Dose: 0.63 mg Loratadine (Claritin Oral Soln 1mg/Ml) 5 mg PO HS [facility] Last Admin: 04/06/18 22:26 Dose: 5 mg Oxycodone/Acetaminophen (Percocet 5/325 Mg Tab) 1 tab PO BID PRN PRN Reason: Pain, moderate (4-7) Stop: 04/08/18 11:11 Pantoprazole Sodium (Protonix Ec Tab) 40 mg PO DAILY [facility] Last Admin: 04/06/18 09:20 Dose: 40 mg Potassium Chloride (K-Dur 20 Meq Er Tab) 20 meq PO BID [facility] Prednisone (Prednisone Tab) 20 mg PO DAILY [facility] Last Admin: 04/06/18 09:13 Dose: 20 mg Promethazine HCl/Dextromethorphan (Phenergan Dm Syrup) 5 ml PO Q8 PRN PRN Reason: Cough Last Admin: 04/06/18 06:47 Dose: 5 ml Roflumilast (Daliresp) 250 mcg PO DAILY [facility] Sertraline HCl (Zoloft) 25 mg PO HS [facility] Last Admin: 04/06/18 21:36 Dose: Not Given - Labs Labs: 04/06/18 05:33 04/06/18 05:33 Attending/Attestation - Attestation I have personally seen and examined this patient.: Yes I have fully participated in the care of the patient.: Yes I have reviewed all pertinent clinical information, including history, physical exam and plan: Yes
[2018-04-05] MEDS ORDERED: methylPREDNISolone 80 MG in Sodium Chloride 0.9% 50 ML IVPB SCH (09:00)
[2018-04-05] MEDS ORDERED: CETIRIZINE HCL 5 MG PO SCH (09:00)
[2018-04-05] MEDS: Cholecalciferol 1,000 INTLU TAB PO SCH (09:06)
[2018-04-05] MEDS: Enoxaparin 40 mg Syringe SC SCH (09:06)
[2018-04-05] MEDS: acetaZOLAMIDE 500 mg SR Cap PO SCH (09:07)
[2018-04-05] MEDS: Levalbuterol 0.63 MG/3 ML Inhal Soln UD INH PRN ×3 (10:50→23:36)
--- NOTE | 2018-04-05 11:08 | CP.PCM.CON ---
History of Present Illness - History of Present Illness History of Present Illness: This 57-year-old female who is known to suffer from lymphangioleiomyomatosis as well as COPD comorbidity as noted significant increase in her dyspnea on exertion and cough for the last 2 days prior to admission. She is home bound and uses oxygen 24 hours day but has noted increasing difficulty breathing associated with chills, chest pain with coughing and nausea. She has been taking her medications as prescribed. She has been followed at [facility] in their lung transplant program. She has had a number of hospitalizations because of her respiratory status over the past few years. She has been taking Roflumilast at a starting dose of 250 g which she appeared to tolerate well. Recently she has been increased to 500 g and has noted increased nausea and loss of appetite at this dose. On presentation to the emergency room chest x-ray did not show any active infiltrates and her arterial blood gas did show evidence of compensated chronic hypercapnic respiratory failure with adequate oxygenation while using supplemental O2. She does use noninvasive positive pressure ventilation at home. Review of Systems - Review of Systems All systems: reviewed and no additional remarkable complaints except - Constitutional Constitutional: Anorexia, Fatigue - Respiratory Respiratory: Cough, Dyspnea, Chest Congestion, Pain with Coughing - Gastrointestinal Gastrointestinal: Nausea - Musculoskeletal Musculoskeletal: Back Pain, Myalgias - Psychiatric Psychiatric: Depression Past Patient History - Infectious Disease Hx of Infectious Diseases: None - Past Medical History & Family History Past Medical History?: Yes Pertinent Family History: Cancer, kidney disease, diabetes - Past Social History Smoking Status: Former Smoker (Discontinued in 2016) Chewing Tobacco Use: No Cigar Use: No Alcohol: None Drugs: Denies Home Situation {Lives}: Alone - CARDIAC Hx Cardiac Disorders: No - PULMONARY Hx Chronic Obstructive Pulmonary Disease (COPD): Yes Hx Pneumonia: Yes Other/Comment: Pulmonary Lymphangioleiomyomatosis. Spontaneous pneumothorax 2 - NEUROLOGICAL Hx Neurological Disorder: No - HEENT Hx HEENT Problems: Yes Other/Comment: Corrected vision - RENAL Hx Chronic Kidney Disease: No - ENDOCRINE/METABOLIC Hx Endocrine Disorders: No - HEMATOLOGICAL/ONCOLOGICAL Hx Blood Disorders: No Hx Human Immunodeficiency Virus (HIV): No - INTEGUMENTARY Hx Dermatological Problems: No - MUSCULOSKELETAL/RHEUMATOLOGICAL Hx Back Pain: Yes Hx Falls: No Other/Comment: Fibromyalgia - GASTROINTESTINAL Hx Gastrointestinal Disorders: No - GENITOURINARY/GYNECOLOGICAL Hx Genitourinary Disorders: Yes Other/Comment: Endometriosis. Uterine fibroids - PSYCHIATRIC Hx Depression: Yes Hx Substance Use: No - SURGICAL HISTORY Hx Pulmonary Surgery: Yes (VATS lung biopsy and pleurodesis) Other/Comment: breast cyst removal (benign), D&C for uterine fibroids, chest tube x2 (spontaneous pneumothorax) with lung biopsy done on second episode. - ANESTHESIA Hx Anesthesia: Yes Hx Anesthesia Reactions: No Hx Malignant Hyperthermia: No Meds Allergies/Adverse Reactions: Allergies Allergy/AdvReac Type Severity Reaction Status Date / Time Sulfa (Sulfonamide Allergy RASH Verified 04/04/18 15:29 Antibiotics) - Medications Medications: Current Medications Acetaminophen (Tylenol 325mg Tab) 650 mg PO Q6 PRN PRN Reason: Pain, Mild (1-3) Acetazolamide (Diamox Sequels 500 Mg Sr Cap) 500 mg PO DAILY [facility] Last Admin: 04/05/18 09:07 Dose: 500 mg Albuterol Sulfate (Albuterol 0.083% Inhal Caridad (2.5 Mg/3 Ml) Ud) 2.5 mg INH RQ4 PRN PRN Reason: Shortness of Breath Alprazolam (Xanax) 0.5 mg PO Q8 PRN PRN Reason: Anxiety Cholecalciferol (Vitamin D) 1,000 intlu PO DAILY [facility] Last Admin: 04/05/18 09:06 Dose: 1,000 intlu Enoxaparin Sodium (Lovenox) 40 mg SC DAILY [facility] PRN Reason: Protocol Last Admin: 04/05/18 09:06 Dose: 40 mg Levalbuterol HCl (Xopenex) 0.63 mg INH RQ8 PRN PRN Reason: Shortness of Breath Last Admin: 04/05/18 10:50 Dose: 0.63 mg Loratadine (Claritin Oral Soln 1mg/Ml) 5 mg PO HS [facility] Prednisone (Prednisone Tab) 40 mg PO DAILY [facility] Last Admin: 04/05/18 09:07 Dose: 40 mg Tramadol HCl (Ultram) 50 mg PO Q8 PRN PRN Reason: Pain, moderate (4-7) Physical Exam - Additional Findings Additional findings: Well-nourished, well-developed female who is slightly overweight. Dyspnea with conversation is noted. Episodic dry cough during the examination. Speech is fluent and memory appears intact. No focal motor weakness. No palpable lymphadenopathy. Pharynx is pink and mucous membranes are moist. Conjunctivae are pink and there is no scleral icterus. Pupils equal and reactive. Neck is supple and trachea is midline. No neck vein distention or carotid bruit. No dullness on chest percussion. Inspiratory phase appears shortened and the breath sounds are diminished bilaterally. No audible wheezing or bronchial breathing. Scattered dry rales are heard in the lower lobes bilaterally. Heart sounds are well heard the rhythm is regular and mildly tachycardic. No murmur. Abdomen is soft and nontender with normal bowel sounds. No dependent edema. No cyanosis. No calf tenderness. Results - Vital Signs Recent Vital Signs: Last Vital Signs Temp 97.5 F L 04/05/18 08:00 Pulse 109 H 04/05/18 09:00 Resp 20 04/05/18 08:00 BP 119/75 04/05/18 08:00 Pulse Ox 95 04/05/18 08:00 - Labs Result Diagrams: 04/06/18 05:33 04/06/18 05:33 Labs: Laboratory Results - last 24 hr 04/04/18 04/04/18 04/04/18 16:00 16:00 16:00 WBC 6.0 RBC 4.43 Hgb 13.0 Hct 39.9 MCV 90.2 D MCH 29.4 MCHC 32.6 L RDW 13.6 Plt Count 325 MPV 8.0 Neut % (Auto) 64.3 Lymph % (Auto) 21.9 Wetzel % (Auto) 12.2 H Eos % (Auto) 1.2 Baso % (Auto) 0.4 Neut # (Auto) 3.8 Lymph # (Auto) 1.3 Wetzel # (Auto) 0.7 Eos # (Auto) 0.1 Baso # (Auto) 0.0 D-Dimer, Quantitative 115 pCO2 pO2 HCO3 ABG pH ABG Total CO2 ABG O2 Saturation ABG O2 Content ABG Base Excess ABG Hemoglobin ABG Carboxyhemoglobin POC ABG HHb (Measured) ABG Methemoglobin ABG O2 Capacity Contreras Test VBG pH VBG pCO2 VBG HCO3 VBG Total CO2 VBG O2 Sat (Calc) VBG Base Excess VBG Potassium A-a O2 Difference Hgb O2 Saturation Glucose Lactate FiO2 Crit Value Called To Crit Value Called By Crit Value Read Back Blood Gas Notified Time Sodium 141 Potassium 4.1 Chloride 100 Carbon Dioxide 31 H Anion Gap 14 BUN 12 Creatinine 0.6 L Est GFR ( Amer) > 60 Est GFR (Non-Af Amer) > 60 Random Glucose 94 Calcium 9.6 Total Bilirubin 0.9 AST 43 H D ALT 35 Alkaline Phosphatase 63 Troponin I < 0.0120 NT-Pro-B Natriuret Pep 23.1 Total Protein 7.5 Albumin 4.2 Globulin 3.3 Albumin/Globulin Ratio 1.3 Venous Blood Potassium 04/04/18 04/05/18 16:39 06:35 WBC RBC Hgb Hct MCV MCH MCHC RDW Plt Count MPV Neut % (Auto) Lymph % (Auto) Wetzel % (Auto) Eos % (Auto) Baso % (Auto) Neut # (Auto) Lymph # (Auto) Wetzel # (Auto) Eos # (Auto) Baso # (Auto) D-Dimer, Quantitative pCO2 56 H pO2 27 L 98 HCO3 28.5 H ABG pH 7.36 ABG Total CO2 33.3 H ABG O2 Saturation 99.3 H ABG O2 Content 18.4 ABG Base Excess 4.6 H ABG Hemoglobin 13.6 ABG Carboxyhemoglobin 1.9 H POC ABG HHb (Measured) 0.7 ABG Methemoglobin 1.8 ABG O2 Capacity 18.5 Contreras Test Yes VBG pH 7.28 L VBG pCO2 74 H* VBG HCO3 27.7 VBG Total CO2 37.1 H VBG O2 Sat (Calc) 53.4 VBG Base Excess 5.5 H VBG Potassium 3.9 A-a O2 Difference 60.0 Hgb O2 Saturation 95.6 Glucose 96 Lactate 1.1 FiO2 21.0 32.0 Crit Value Called To Mera myers Crit Value Called By 6070 Crit Value Read Back Y Blood Gas Notified Time 1645 Sodium 138.0 Potassium Chloride 103.0 Carbon Dioxide Anion Gap BUN Creatinine Est GFR ( Amer) Est GFR (Non-Af Amer) Random Glucose Calcium Total Bilirubin AST ALT Alkaline Phosphatase Troponin I NT-Pro-B Natriuret Pep Total Protein Albumin Globulin Albumin/Globulin Ratio Venous Blood Potassium 3.9 Assessment & Plan (1) COPD exacerbation Status: Acute Priority: High (2) Chronic hypercapnic respiratory failure Status: Chronic Priority: High (3) Lymphangioleiomyomatosis Status: Chronic Priority: High - Assessment and Plan (Free Text) Plan: Supplemental oxygen and noninvasive positive pressure ventilation. Treat exacerbation of COPD with inhalation therapies and short course of corticosteroids. We'll resume Roflumilast at 250 g per day when available. - Date & Time Date: 04/05/18 Time: 11:08
[2018-04-05] MEDS ORDERED: Oxycodone/Acetaminophen 5/325 mg Tab PO PRN (11:10)
[2018-04-05] MEDS: Albuterol 0.083% Inhal Sol (2.5 mg/3 mL) UD INH PRN (14:00)
[2018-04-05] MEDS: Loratadine 5 MG/5 ML ORAL SYRUP PO SCH (21:31)
[2018-04-05] MEDS: Promethazine DM 6.25 mg-15 mg/5 ml Syrup PO PRN (22:14)
[2018-04-06] MEDS: Albuterol 0.083% Inhal Sol (2.5 mg/3 mL) UD INH PRN ×4 (04:00→19:53)
[2018-04-06 05:59] LABS: BASO % 0.1 % (0.0-2.0); EOS % 0.1 % (0.0-4.0); LYMPH # 1.6 K/uL (1.0-4.3); LYMPH % 11.3 % (20.0-40.0); MEAN CELL VOLUME 89.9 fl (81.0-99.0); MEAN CORPUSCULAR HEMOGLOBIN 29.3 pg (27.0-31.0); MEAN CORPUSCULAR HGB CONC 32.6 g/dL (33.0-37.0); MEAN PLATELET VOLUME 7.8 fl (7.2-11.7); MONO # 1.7 K/uL (0.0-0.8); MONO % 11.6 % (0.0-10.0); NEUT # 11.1 K/uL (1.8-7.0); NEUT % 76.9 % (50.0-75.0); NRBC % 0.1 % (0.0-0.0); RBC 4.43 Mil/uL (3.80-5.20); RED CELL DISTRIBUTION WIDTH 13.6 % (11.5-14.5); WHITE BLOOD COUNT 14.4 K/uL (4.8-10.8)
[2018-04-06 06:33] LABS: BLOOD UREA NITROGEN 15 mg/dl (7-17); CALCIUM 9.3 mg/dL (8.4-10.2); GFR AFRICAN-AMERICAN > 60; GFR NON-AFRICAN AMERICAN > 60
[2018-04-06] MEDS ORDERED: Potassium Chloride 20 mEq ER Tab PO STA (06:46)
[2018-04-06] MEDS: Promethazine DM 6.25 mg-15 mg/5 ml Syrup PO PRN (06:47)
[2018-04-06] MEDS: acetaZOLAMIDE 500 mg SR Cap PO SCH (09:15)
[2018-04-06] MEDS: Cholecalciferol 1,000 INTLU TAB PO SCH (09:15)
[2018-04-06] MEDS: Enoxaparin 40 mg Syringe SC SCH (09:16)
[2018-04-06] MEDS: Pantoprazole 40 mg EC Tab PO SCH (09:20)
--- NOTE | 2018-04-06 09:59 | CP.PCM.PN ---
Addendum entered and electronically signed by Ade Mccoy MD 04/06/18 17:21: On reexamination, pt states that she is becoming very depressed and anxious. Pt is aware of the fact that her condition is slowly progressing, is not a candidate for lung transplantation and that she will eventually from her condition. Spoke to patient, wants to be evaluated by a psych, denies suicidal and homicidal; ideation. -Will start her on zoloft -psych consulted Original Note: <Ade Mccoy - Last Filed: 04/06/18 15:38> Subjective - Date & Time of Evaluation Date of Evaluation: 04/06/18 Time of Evaluation: 08:00 - Subjective Subjective: No acute overnight events. Pt states that her breathing has mildly improved but does not feel well enough to be discharged. Denies chest pain, breathing with 2L O2, tolerating PO. Objective - Vital Signs/Intake and Output Vital Signs (last 24 hours): Temp Pulse Resp BP Pulse Ox 97.4 F L 88 20 113/74 99 04/06/18 08:14 04/06/18 09:00 04/06/18 08:14 04/06/18 08:14 04/06/18 08:14 - Medications Medications: Current Medications Acetaminophen (Tylenol 325mg Tab) 650 mg PO Q6 PRN PRN Reason: Pain, Mild (1-3) Acetazolamide (Diamox Sequels 500 Mg Sr Cap) 500 mg PO DAILY [facility] Last Admin: 04/06/18 09:15 Dose: 500 mg Albuterol Sulfate (Albuterol 0.083% Inhal Caridad (2.5 Mg/3 Ml) Ud) 2.5 mg INH RQ4 PRN PRN Reason: Shortness of Breath Last Admin: 04/06/18 09:00 Dose: 2.5 mg Alprazolam (Xanax) 0.5 mg PO Q8 PRN PRN Reason: Anxiety Last Admin: 04/06/18 06:46 Dose: 0.5 mg Cholecalciferol (Vitamin D) 1,000 intlu PO DAILY [facility] Last Admin: 04/06/18 09:15 Dose: 1,000 intlu Enoxaparin Sodium (Lovenox) 40 mg SC DAILY [facility] PRN Reason: Protocol Last Admin: 04/06/18 09:16 Dose: 40 mg Levalbuterol HCl (Xopenex) 0.63 mg INH RQ8 PRN PRN Reason: Shortness of Breath Last Admin: 04/05/18 23:36 Dose: 0.63 mg Loratadine (Claritin Oral Soln 1mg/Ml) 5 mg PO HS [facility] Last Admin: 04/05/18 21:31 Dose: 5 mg Oxycodone/Acetaminophen (Percocet 5/325 Mg Tab) 1 tab PO BID PRN PRN Reason: Pain, moderate (4-7) Stop: 04/08/18 11:11 Pantoprazole Sodium (Protonix Ec Tab) 40 mg PO DAILY [facility] Last Admin: 04/06/18 09:20 Dose: 40 mg Prednisone (Prednisone Tab) 20 mg PO DAILY [facility] Last Admin: 04/06/18 09:13 Dose: 20 mg Promethazine HCl/Dextromethorphan (Phenergan Dm Syrup) 5 ml PO Q8 PRN PRN Reason: Cough Last Admin: 04/06/18 06:47 Dose: 5 ml Roflumilast (Daliresp) 500 mcg PO DAILY [facility] Last Admin: 04/06/18 09:14 Dose: Not Given - Labs Labs: 04/06/18 05:33 04/06/18 05:33 - Constitutional Appears: No Acute Distress, Other (2L NC, meade facies ) - Head Exam Head Exam: NORMAL INSPECTION - Eye Exam Eye Exam: EOMI, Normal appearance - ENT Exam ENT Exam: Mucous Membranes Moist - Respiratory Exam Respiratory Exam: Wheezes (in the lower lobes b/l ), NORMAL BREATHING PATTERN - Cardiovascular Exam Cardiovascular Exam: REGULAR RHYTHM, +S1, +S2 - GI/Abdominal Exam GI & Abdominal Exam: Soft, Normal Bowel Sounds. absent: Tenderness - Extremities Exam Extremities Exam: Normal Inspection. absent: Calf Tenderness, Pedal Edema - Neurological Exam Neurological Exam: Alert, Awake, Oriented x3 - Psychiatric Exam Psychiatric exam: Normal Affect, Normal Mood Assessment and Plan - Assessment and Plan (Free Text) Assessment: Assessment/Plan: 57 YO female with PMHx of JIMENEZ (lymphangioleiomyomatosis), COPD, endometriosis, anxiety, and depression is admitted for COPD exacerbation. COPD exacerbation -acute on chronic -dyspnea like 2/2 to COPD exacerbation -CXR: stable COPD w/o acute consolidation, pleural effusion, or pneumothorax bilaterally -c/w home meds -Predisone 20mg daily -c/w O2 -has bipap at home (not using it) -c/w promethazine -Pulmonology consult; Roflumilast at 250 g per day when available, steroids for COPD exacerbation Leukocytosis -acute, likely reactive 2/2 to steroids -afebrile -cont to monitor Chronic low back pain -stable, chronic -Percocet prn -follow up Hypokalemia -will replace and monitor Seasonal allergies -c/w PO claritin HS Anxiety/Depression -not on any meds -well controlled DVT prophlx -lovenox 40 mg SC daily <Juan Meza - Last Filed: 04/07/18 06:50> Objective - Vital Signs/Intake and Output Vital Signs (last 24 hours): Temp Pulse Resp BP Pulse Ox 97.7 F 83 18 126/79 100 04/07/18 04:59 04/07/18 04:59 04/07/18 04:59 04/07/18 04:59 04/07/18 04:59 - Medications Medications: Current Medications Acetaminophen (Tylenol 325mg Tab) 650 mg PO Q6 PRN PRN Reason: Pain, Mild (1-3) Acetazolamide (Diamox Sequels 500 Mg Sr Cap) 500 mg PO DAILY [facility] Last Admin: 04/06/18 09:15 Dose: 500 mg Albuterol Sulfate (Albuterol 0.083% Inhal Caridad (2.5 Mg/3 Ml) Ud) 2.5 mg INH RQ4 PRN PRN Reason: Shortness of Breath Last Admin: 04/07/18 05:28 Dose: 2.5 mg Alprazolam (Xanax) 0.5 mg PO Q8 PRN PRN Reason: Anxiety Last Admin: 04/06/18 23:47 Dose: 0.5 mg Cholecalciferol (Vitamin D) 1,000 intlu PO DAILY [facility] Last Admin: 04/06/18 09:15 Dose: 1,000 intlu Enoxaparin Sodium (Lovenox) 40 mg SC DAILY [facility] PRN Reason: Protocol Last Admin: 04/06/18 09:16 Dose: 40 mg Fluticasone Propionate (Flonase) 1 spr KIRBY BID [facility] Last Admin: 04/06/18 18:04 Dose: 1 spr Levalbuterol HCl (Xopenex) 0.63 mg INH RQ8 PRN PRN Reason: Shortness of Breath Last Admin: 04/06/18 13:40 Dose: 0.63 mg Loratadine (Claritin Oral Soln 1mg/Ml) 5 mg PO HS [facility] Last Admin: 04/06/18 22:26 Dose: 5 mg Oxycodone/Acetaminophen (Percocet 5/325 Mg Tab) 1 tab PO BID PRN PRN Reason: Pain, moderate (4-7) Stop: 04/08/18 11:11 Pantoprazole Sodium (Protonix Ec Tab) 40 mg PO DAILY [facility] Last Admin: 04/06/18 09:20 Dose: 40 mg Potassium Chloride (K-Dur 20 Meq Er Tab) 20 meq PO BID [facility] Prednisone (Prednisone Tab) 20 mg PO DAILY [facility] Last Admin: 04/06/18 09:13 Dose: 20 mg Promethazine HCl/Dextromethorphan (Phenergan Dm Syrup) 5 ml PO Q8 PRN PRN Reason: Cough Last Admin: 04/06/18 06:47 Dose: 5 ml Roflumilast (Daliresp) 250 mcg PO DAILY [facility] Sertraline HCl (Zoloft) 25 mg PO HS [facility] Last Admin: 04/06/18 21:36 Dose: Not Given - Labs Labs: 04/06/18 05:33 04/06/18 05:33 Attending/Attestation - Attestation I have personally seen and examined this patient.: Yes I have fully participated in the care of the patient.: Yes I have reviewed all pertinent clinical information, including history, physical exam and plan: Yes
[2018-04-06] MEDS: Levalbuterol 0.63 MG/3 ML Inhal Soln UD INH PRN (13:40)
[2018-04-06] MEDS ORDERED: Albuterol-Ipratrop 3 mg / 0.5 (3 ml) UD INH STA (15:33)
[2018-04-06 17:51] LABS: ABG ALLEN TEST YES; ARTERIAL BLOOD GAS HCO3 29.3 mmol/L (21-28); ARTERIAL BLOOD GAS HEMOGLOBIN 13.4 g/dL (11.7-17.4); ARTERIAL BLOOD GAS O2 CAPACITY 18.2 mL/dL (16-24); ARTERIAL BLOOD GAS O2 CONTENT 18.1 ML/dL (15-23); ARTERIAL BLOOD GAS O2 SAT 99.6 % (95-98); ARTERIAL BLOOD GAS PCO2 60 mm/Hg (35-45); ARTERIAL BLOOD GAS PH 7.35 (7.35-7.45); ARTERIAL BLOOD GAS PO2 102 mm/Hg (80-100); ARTERIAL BLOOD GAS TCO2 34.9 mmol/L (22-28)
[2018-04-06] MEDS ORDERED: FLUTICASONE PROPIONATE IH SCH (21:00)
[2018-04-06] MEDS: Loratadine 5 MG/5 ML ORAL SYRUP PO SCH (22:26)
[2018-04-07] MEDS: Albuterol 0.083% Inhal Sol (2.5 mg/3 mL) UD INH PRN ×3 (01:16→19:21)
[2018-04-07 05:00] VITALS: O2SAT 100
[2018-04-07] MEDS: acetaZOLAMIDE 500 mg SR Cap PO SCH (08:47)
[2018-04-07] MEDS: Pantoprazole 40 mg EC Tab PO SCH (08:47)
[2018-04-07] MEDS: Cholecalciferol 1,000 INTLU TAB PO SCH (08:48)
[2018-04-07] MEDS: Enoxaparin 40 mg Syringe SC SCH (08:48)
[2018-04-07] MEDS: Potassium Chloride 20 mEq ER Tab PO SCH ×2 (09:56→18:16)
[2018-04-07] MEDS: Levalbuterol 0.63 MG/3 ML Inhal Soln UD INH PRN ×2 (09:56→15:27)
--- NOTE | 2018-04-07 13:35 | CP.PCM.DIS ---
Provider - Provider Date of Admission: 04/06/18 11:56 Attending physician: Juan Meza MD Consults: Pulmonary: Dr. Interiano Time Spent in preparation of Discharge (in minutes): 20 Diagnosis - Discharge Diagnosis (1) COPD exacerbation Status: Acute Priority: High (2) Depressed mood Status: Acute Priority: High Hospital Course - Lab Results Lab Results: Micro Results 04/04/18 16:15 Blood-Venous Blood Culture - Preliminary NO GROWTH AFTER 48 HOURS 04/04/18 16:00 Blood-Venous Blood Culture - Preliminary NO GROWTH AFTER 48 HOURS Most Recent Lab Values WBC 14.4 K/uL (4.8-10.8) H D 04/06/18 05:33 RBC 4.43 Mil/uL (3.80-5.20) 04/06/18 05:33 Hgb 13.0 g/dL (12.0-16.0) 04/06/18 05:33 Hct 39.8 % (34.0-47.0) 04/06/18 05:33 MCV 89.9 fl (81.0-99.0) 04/06/18 05:33 MCH 29.3 pg (27.0-31.0) 04/06/18 05:33 MCHC 32.6 g/dL (33.0-37.0) L 04/06/18 05:33 RDW 13.6 % (11.5-14.5) 04/06/18 05:33 Plt Count 334 K/uL (130-400) 04/06/18 05:33 MPV 7.8 fl (7.2-11.7) 04/06/18 05:33 Neut % (Auto) 76.9 % (50.0-75.0) H 04/06/18 05:33 Lymph % (Auto) 11.3 % (20.0-40.0) L 04/06/18 05:33 Baca % (Auto) 11.6 % (0.0-10.0) H 04/06/18 05:33 Eos % (Auto) 0.1 % (0.0-4.0) 04/06/18 05:33 Baso % (Auto) 0.1 % (0.0-2.0) 04/06/18 05:33 Neut # (Auto) 11.1 K/uL (1.8-7.0) H 04/06/18 05:33 Lymph # (Auto) 1.6 K/uL (1.0-4.3) 04/06/18 05:33 Baca # (Auto) 1.7 K/uL (0.0-0.8) H 04/06/18 05:33 Eos # (Auto) 0.0 K/uL (0.0-0.7) 04/06/18 05:33 Baso # (Auto) 0.0 K/uL (0.0-0.2) 04/06/18 05:33 D-Dimer, Quantitative 115 ng/mlDDU (0-230) 04/04/18 16:00 pCO2 60 mm/Hg (35-45) H 04/06/18 16:08 pO2 102 mm/Hg (80-100) H 04/06/18 16:08 HCO3 29.3 mmol/L (21-28) H 04/06/18 16:08 ABG pH 7.35 (7.35-7.45) 04/06/18 16:08 ABG Total CO2 34.9 mmol/L (22-28) H 04/06/18 16:08 ABG O2 Saturation 99.6 % (95-98) H 04/06/18 16:08 ABG O2 Content 18.1 ML/dL (15-23) 04/06/18 16:08 ABG Base Excess 5.7 mmol/L (-2.0-3.0) H 04/06/18 16:08 ABG Hemoglobin 13.4 g/dL (11.7-17.4) 04/06/18 16:08 ABG Carboxyhemoglobin 2.0 % (0.5-1.5) H 04/06/18 16:08 POC ABG HHb (Measured) 0.4 % (0.0-5.0) 04/06/18 16:08 ABG Methemoglobin 2.0 % (0.0-3.0) 04/06/18 16:08 ABG O2 Capacity 18.2 mL/dL (16-24) 04/06/18 16:08 Contreras Test Yes 04/06/18 16:08 VBG pH 7.28 (7.32-7.43) L 04/04/18 16:39 VBG pCO2 74 mmHg (40-60) H* 04/04/18 16:39 VBG HCO3 27.7 mmol/L 04/04/18 16:39 VBG Total CO2 37.1 mmol/L (22-28) H 04/04/18 16:39 VBG O2 Sat (Calc) 53.4 % (40-65) 04/04/18 16:39 VBG Base Excess 5.5 mmol/L (0.0-2.0) H 04/04/18 16:39 VBG Potassium 3.9 mmol/L (3.6-5.2) 04/04/18 16:39 A-a O2 Difference 80.0 mm/Hg 04/06/18 16:08 Hgb O2 Saturation 95.7 % (95.0-98.0) 04/06/18 16:08 Sodium 138.0 mmol/L (132-148) 04/04/18 16:39 Chloride 103.0 mmol/L (98-107) 04/04/18 16:39 Glucose 96 mg/dL (65-105) 04/04/18 16:39 Lactate 1.1 mmol/L (0.7-2.1) 04/04/18 16:39 FiO2 36.0 % 04/06/18 16:08 Crit Value Called To Mera myers 04/04/18 16:39 Crit Value Called By [id number] 04/04/18 16:39 Crit Value Read Back Y 04/04/18 16:39 Blood Gas Notified Time 1645 04/04/18 16:39 Sodium 143 mmol/l (132-148) 04/06/18 05:33 Potassium 3.3 MMOL/L (3.6-5.0) L 04/06/18 05:33 Chloride 104 mmol/L (98-107) 04/06/18 05:33 Carbon Dioxide 29 mmol/L (22-30) 04/06/18 05:33 Anion Gap 13 (10-20) 04/06/18 05:33 BUN 15 mg/dl (7-17) 04/06/18 05:33 Creatinine 0.6 mg/dl (0.7-1.2) L 04/06/18 05:33 Est GFR ( Amer) > 60 04/06/18 05:33 Est GFR (Non-Af Amer) > 60 04/06/18 05:33 Random Glucose 96 mg/dL (65-105) 04/06/18 05:33 Calcium 9.3 mg/dL (8.4-10.2) 04/06/18 05:33 Total Bilirubin 0.9 mg/dl (0.2-1.3) 04/04/18 16:00 AST 43 U/L (14-36) H D 04/04/18 16:00 ALT 35 U/L (9-52) 04/04/18 16:00 Alkaline Phosphatase 63 U/L (38-126) 04/04/18 16:00 Troponin I < 0.0120 ng/mL (0.00-0.120) 04/04/18 16:00 NT-Pro-B Natriuret Pep 23.1 pg/ml (0-900) 04/04/18 16:00 Total Protein 7.5 G/DL (6.3-8.2) 04/04/18 16:00 Albumin 4.2 g/dL (3.5-5.0) 04/04/18 16:00 Globulin 3.3 gm/dL (2.2-3.9) 04/04/18 16:00 Albumin/Globulin Ratio 1.3 (1.0-2.1) 04/04/18 16:00 Venous Blood Potassium 3.9 mmol/L (3.6-5.2) 04/04/18 16:39 - Hospital Course Hospital Course: 57 YO female with PMHx of JIMENEZ (lymphangioleiomyomatosis), COPD, endometriosis, anxiety, and depression is admitted for COPD exacerbation. Pulmonary was consulted, COPD was optimized. Pt cleared medically for d/c home. Admission was complicated by acute onset chronic depression. Pt was feeling depressed, and psych was consulted. Pt seen by psychiatry, and pt has agreed for voluntarily admission to psych inpatient services at [facility]. Per Pulmonary: Resume Roflumilast at 250 g Taper Steroid by 5mg daily Discharge Exam - Head Exam Head Exam: NORMAL INSPECTION - Eye Exam Eye Exam: EOMI, Normal appearance - ENT Exam ENT Exam: Mucous Membranes Moist - Respiratory Exam Respiratory Exam: Wheezes (b/l scattered wheezing, mild ), NORMAL BREATHING PATTERN - Cardiovascular Exam Cardiovascular Exam: REGULAR RHYTHM, +S1, +S2 - GI/Abdominal Exam GI & Abdominal Exam: Normal Bowel Sounds, Soft. absent: Tenderness - Extremities Exam Extremities exam: normal inspection - Back Exam Back exam: NORMAL INSPECTION - Neurological Exam Neurological exam: Alert, Oriented x3 - Psychiatric Exam Psychiatric exam: Depressed - Skin Skin Exam: Dry, Intact, Normal Color Discharge Plan - Follow Up Plan Condition: FAIR Disposition: DISCHARGE TO PSYCH HOSPITAL Patient education suggested?: Yes Instructions: Suicide Prevention for Adults (DC), Exacerbation of COPD (DC) Additional Instructions: Will d/c patient to inpatient psych unit
--- NOTE | 2018-04-07 13:36 | CP.PCM.CON ---
History of Present Illness - History of Present Illness History of Present Illness: This 57-year-old female who is known to suffer from lymphangioleiomyomatosis as well as COPD comorbidity as noted significant increase in her dyspnea on exertion and cough for the last 2 days prior to admission.pt admitted to medical floor for increased dyspnea pt came to know that her medical condition has progressed and she is not currently a candidate for lung transplant with expected mortality due to her condition, since then pt noted by staff to be increasingly depressed and anxious on evaluation pt with partial eye contact, initially guarded but more cooperative as interview progressed, reported feeling anxious about her current medical condition and worried about her prognosis, tearful, presenting with depressed and constricted affect , decreased sleep with early insomnia, poor appetite pt has no social support living by self Past Patient History - Infectious Disease Hx of Infectious Diseases: None - Past Medical History & Family History Past Medical History?: Yes - Past Social History Smoking Status: Former Smoker (Discontinued in 2016) Chewing Tobacco Use: No Cigar Use: No Alcohol: None Drugs: Denies Home Situation {Lives}: Alone - CARDIAC Hx Cardiac Disorders: No - PULMONARY Hx Chronic Obstructive Pulmonary Disease (COPD): Yes Hx Pneumonia: Yes Other/Comment: Pulmonary Lymphangioleiomyomatosis. Spontaneous pneumothorax 2 - NEUROLOGICAL Hx Neurological Disorder: No - HEENT Hx HEENT Problems: Yes Other/Comment: Corrected vision - RENAL Hx Chronic Kidney Disease: No - ENDOCRINE/METABOLIC Hx Endocrine Disorders: No - HEMATOLOGICAL/ONCOLOGICAL Hx Blood Disorders: No Hx Human Immunodeficiency Virus (HIV): No - INTEGUMENTARY Hx Dermatological Problems: No - MUSCULOSKELETAL/RHEUMATOLOGICAL Hx Back Pain: Yes Hx Falls: No Other/Comment: Fibromyalgia - GASTROINTESTINAL Hx Gastrointestinal Disorders: No - GENITOURINARY/GYNECOLOGICAL Hx Genitourinary Disorders: Yes Other/Comment: Endometriosis. Uterine fibroids - PSYCHIATRIC Hx Depression: Yes Hx Substance Use: No - SURGICAL HISTORY Hx Pulmonary Surgery: Yes (VATS lung biopsy and pleurodesis) Other/Comment: breast cyst removal (benign), D&C for uterine fibroids, chest tube x2 (spontaneous pneumothorax) with lung biopsy done on second episode. - ANESTHESIA Hx Anesthesia: Yes Hx Anesthesia Reactions: No Hx Malignant Hyperthermia: No Meds Allergies/Adverse Reactions: Allergies Allergy/AdvReac Type Severity Reaction Status Date / Time Sulfa (Sulfonamide Allergy RASH Verified 04/04/18 15:29 Antibiotics) - Medications Medications: Current Medications Acetaminophen (Tylenol 325mg Tab) 650 mg PO Q6 PRN PRN Reason: Pain, Mild (1-3) Acetazolamide (Diamox Sequels 500 Mg Sr Cap) 500 mg PO DAILY [facility] Last Admin: 04/07/18 08:47 Dose: 500 mg Albuterol Sulfate (Albuterol 0.083% Inhal Caridad (2.5 Mg/3 Ml) Ud) 2.5 mg INH RQ4 PRN PRN Reason: Shortness of Breath Last Admin: 04/07/18 05:28 Dose: 2.5 mg Alprazolam (Xanax) 0.5 mg PO Q8 PRN PRN Reason: Anxiety Last Admin: 04/06/18 23:47 Dose: 0.5 mg Cholecalciferol (Vitamin D) 1,000 intlu PO DAILY [facility] Last Admin: 04/07/18 08:48 Dose: 1,000 intlu Enoxaparin Sodium (Lovenox) 40 mg SC DAILY [facility] PRN Reason: Protocol Last Admin: 04/07/18 08:48 Dose: 40 mg Fluticasone Propionate (Flonase) 1 spr KIRBY BID [facility] Last Admin: 04/07/18 08:47 Dose: 1 spr Levalbuterol HCl (Xopenex) 0.63 mg INH RQ8 PRN PRN Reason: Shortness of Breath Last Admin: 04/07/18 09:56 Dose: 0.63 mg Loratadine (Claritin Oral Soln 1mg/Ml) 5 mg PO HS [facility] Last Admin: 04/06/18 22:26 Dose: 5 mg Oxycodone/Acetaminophen (Percocet 5/325 Mg Tab) 1 tab PO BID PRN PRN Reason: Pain, moderate (4-7) Stop: 04/08/18 11:11 Pantoprazole Sodium (Protonix Ec Tab) 40 mg PO DAILY [facility] Last Admin: 04/07/18 08:47 Dose: 40 mg Potassium Chloride (K-Dur 20 Meq Er Tab) 20 meq PO BID [facility] Last Admin: 04/07/18 09:56 Dose: 20 meq Prednisone (Prednisone Tab) 20 mg PO DAILY [facility] Last Admin: 04/07/18 08:47 Dose: 20 mg Promethazine HCl/Dextromethorphan (Phenergan Dm Syrup) 5 ml PO Q8 PRN PRN Reason: Cough Last Admin: 04/06/18 06:47 Dose: 5 ml Roflumilast (Daliresp) 250 mcg PO DAILY [facility] Sertraline HCl (Zoloft) 25 mg PO HS [facility] Last Admin: 04/06/18 21:36 Dose: Not Given Physical Exam - Psychiatric Exam Additional comments: pt seen in bed , anxious mood , depressed affect partial eye contact, speech underproductive , soft and slow , thought form coherent alert awake ox3 denied perceptual disturbances , non elicited Results - Vital Signs Recent Vital Signs: Last Vital Signs Temp 97.9 F 04/07/18 12:53 Pulse 91 H 04/07/18 12:53 Resp 20 04/07/18 12:53 BP 108/72 04/07/18 12:53 Pulse Ox 100 04/07/18 12:53 - Labs Result Diagrams: 04/06/18 05:33 04/06/18 05:33 Labs: Laboratory Results - last 24 hr 04/06/18 16:08 pCO2 60 H pO2 102 H HCO3 29.3 H ABG pH 7.35 ABG Total CO2 34.9 H ABG O2 Saturation 99.6 H ABG O2 Content 18.1 ABG Base Excess 5.7 H ABG Hemoglobin 13.4 ABG Carboxyhemoglobin 2.0 H POC ABG HHb (Measured) 0.4 ABG Methemoglobin 2.0 ABG O2 Capacity 18.2 Contreras Test Yes A-a O2 Difference 80.0 Hgb O2 Saturation 95.7 FiO2 36.0 Assessment & Plan - Assessment and Plan (Free Text) Assessment: mood disorder due to medical condition with depression adjustment disorder with mixed depression and anxiety Plan: pt at current mental status presenting with depressed mood and affect pt would benefit from admission to psychiatry for psychotherapy and pharmacotherapy
[2018-04-07] MEDS: Promethazine DM 6.25 mg-15 mg/5 ml Syrup PO PRN (13:52)
[2018-04-07 16:16] VITALS: BP 134/81; PULSE 100; RESP 18; TEMP 98.2
== END 2018-04-07 19:30 | disposition home or self-care (01) | DRG 190 ==
LOC: H.ER 15:09 → H.ERHOLD 17:49 → H.TEL 20:39 → OBSVTOIN 04-06 11:56
PROVIDERS: ADMIT Family Medicine; ATTEND Family Medicine
PROC: 3E0F73Z Introduction of Anti-inflammatory into Respiratory Tract, Via Natural or Artificial Opening (ICD-10-PCS; principal; 2018-04-05)
PROC: 3E0F7GC Introduction of Other Therapeutic Substance into Respiratory Tract, Via Natural or Artificial Opening (ICD-10-PCS; 2018-04-05)
PROC: 5A09457 Assistance with Respiratory Ventilation, 24-96 Consecutive Hours, Continuous Positive Airway Pressure (ICD-10-PCS; 2018-04-06)
DX: J44.1 Chronic obstructive pulmonary disease with (acute) exacerbation (principal); J84.81 Lymphangioleiomyomatosis; J96.12 Chronic respiratory failure with hypercapnia; E87.6 Hypokalemia; F06.30 Mood disorder due to known physiological condition, unspecified; F43.23 Adjustment disorder with mixed anxiety and depressed mood; J30.2 Other seasonal allergic rhinitis; D72.828 Other elevated white blood cell count; M79.7 Fibromyalgia; G89.29 Other chronic pain; M54.5 Low back pain; Z79.51 Long term (current) use of inhaled steroids; Z99.81 Dependence on supplemental oxygen; Z87.891 Personal history of nicotine dependence; Z87.01 Personal history of pneumonia (recurrent); Z87.440 Personal history of urinary (tract) infections; Z88.2 Allergy status to sulfonamides

== ENCOUNTER 2018-09-27 15:16 | Inpatient (IN) | payer MEDICARE, MEDICAID ==
[2018-09-27 15:16] VITALS: BMI 30.2
--- NOTE | 2018-09-27 16:01 | ED PDOC ---
HPI: SOB/CHF/COPD Time Seen by Provider: 09/27/18 15:33 Chief Complaint (Nursing): Shortness Of Breath Chief Complaint (Provider): Shortness of Breath and Weakness History Per: Patient, EMS History/Exam Limitations: no limitations Onset/Duration Of Symptoms: Other (Couple of weeks) Current Symptoms Are (Timing): Still Present Additional Complaint(s): 58 year old female, with a past medical history of COPD, lymphangioleiomyomatosis and chronic fatigue syndrome, presents to the ED via EMS complaining of shortness of breath and weakness. Patient reports she is normally short of breath due to COPD but feels more weak than usual. She states she has chills, cough, congestion, nausea, diarrhea, and constipation. Patient indicates that due to the medication, Roflumilast, she normally has diarrhea. She also reports that she stopped taking Prednisone about a week ago. Patient states that at home, she is on Oxygen and uses nebulizer. Denies fever and vomiting. PMD: Dr. Cardona Manager Plan: Dr. Interiano Past Medical History Reviewed: Historical Data, Nursing Documentation, Vital Signs Vital Signs: Last Vital Signs Temp 98.8 F 09/27/18 15:24 Pulse 85 09/27/18 15:24 Resp 26 H 09/27/18 15:46 BP 153/97 H 09/27/18 15:24 Pulse Ox 98 09/27/18 15:24 - Medical History PMH: Anxiety, Asthma, Back Problems, COPD, Depression, Pneumonia, Pneumothorax Denies: Arthritis, CHF, HIV, HTN, Hypercholesterolemia, Hypothyroidism, Chronic Kidney Disease, Rheumatoid Arthritis Other PMH: lymphangioleiomyomatosis, chronic fatigue syndrome - Surgical History Other surgeries: Benign tumor removed, surgery for endometriosis - Family History Family History: States: Diabetes Other Family History: Breast cancer - Social History Current smoker - smoking cessation education provided: No Ex-Smoker (has not smoked in the last 12 months): Yes - Home Medications Home Medications: Ambulatory Orders Medication Instructions Recorded Albuterol Sulfate [Proair Hfa] 2 puff IH Q4 PRN 02/20/18 Alprazolam [Xanax] 0.5 mg PO Q8 PRN 02/20/18 Cetirizine HCl [Wal-Zyr] 5 mg PO Q12 02/20/18 Cholecalciferol [Vitamin D 1000 IU] 1,000 unit PO DAILY 02/20/18 Oxycodone HCl/Acetaminophen 1 tab PO Q6 PRN 02/20/18 [Percocet 7.5-325 mg Tablet] acetaZOLAMIDE [Acetazolamide] 500 mg PO DAILY 02/20/18 Albuterol/Ipratropium [Duoneb 3 3 ml INH Q4 PRN 04/04/18 mg/0.5 mg (3 ml) UD] Fluticasone Propionate [Flonase] 1 spray KIRBY BID PRN 04/04/18 Albuterol 0.083% [Albuterol 0.083% 2.5 mg INH RQ4 PRN neb 04/07/18 Inhal Caridad (2.5 mg/3 ml) UD] Promethazine DM [Phenergan DM 5 ml PO Q8 PRN cup 04/07/18 Syrup] Roflumilast [Daliresp] 250 mcg PO HS #30 tablet 04/07/18 Sertraline HCl [Zoloft] 25 mg PO HS #30 tablet 04/07/18 - Allergies Allergies/Adverse Reactions: Allergies Allergy/AdvReac Type Severity Reaction Status Date / Time Sulfa (Sulfonamide Allergy RASH Verified 09/27/18 15:23 Antibiotics) Review of Systems ROS Statement: Except As Marked, All Systems Reviewed And Found Negative Constitutional: Positive for: Chills, Weakness. Negative for: Fever ENT: Positive for: Nose Congestion Cardiovascular: Negative for: Chest Pain Respiratory: Positive for: Cough, Shortness of Breath Gastrointestinal: Positive for: Nausea, Diarrhea, Constipation. Negative for: Vomiting Physical Exam - Reviewed Nursing Documentation Reviewed: Yes Vital Signs Reviewed: Yes - Physical Exam Appears: Positive for: Non-toxic, No Acute Distress Head Exam: Positive for: ATRAUMATIC, NORMOCEPHALIC Skin: Positive for: Normal Color, Warm, Dry Eye Exam: Positive for: Normal appearance Neck: Positive for: Normal, Painless ROM Cardiovascular/Chest: Positive for: Regular Rate, Rhythm Respiratory: Positive for: Decreased Breath Sounds (bilaterally). Negative for: Wheezing, Respiratory Distress Gastrointestinal/Abdominal: Positive for: Normal Exam, Soft. Negative for: Tenderness Extremity: Positive for: Swelling (bilateral lower leg swelling, symmetric). Negative for: Pedal Edema Neurologic/Psych: Positive for: Alert, Oriented. Negative for: Motor/Sensory Deficits - Laboratory Results Result Diagrams: 09/27/18 16:14 09/27/18 16:14 - ECG O2 Sat by Pulse Oximetry: 98 (RA) Pulse Ox Interpretation: Normal Medical Decision Making Medical Decision Making: Initial Impression: Weakness and chills Differential includes influenza, pneumonia, steroid induced myopathy, COPD exacerbation Initial Plan: --Arterial blood gas stat --ABG shock panel --ECG --BMP --Troponin --ED urine dipstick --CBC --Chest X-ray --Blood culture --Influenza A B stat CT Chest FINDINGS: LUNGS: There is extensive bullous change seen throughout both lungs as well as scarring both lungs. There is some pleural thickening with calcification about the right lower lung. There is no consolidation or atelectasis. PLEURAL SPACES: Pleural thickening present. HEART: No cardiomegaly. No significant pericardial effusion. LYMPH NODES: No lymphadenopathy is evident. BONES: No focal osseous abnormality or acute fracture. UPPER ABDOMEN: Prominent right renal cyst measuring approximate 4.6 x 4.7 cm. IMPRESSION: Extensive bullous change and scarring both lungs. No significant change compared to previous study. No consolidation or atelectasis. Prominent right renal cyst again noted. Clinical correlation advised. -- Scribe Attestation: Documented by Apolinar Murrell acting as a scribe for Von Hannon MD. Provider Scribe Attestation: All medical record entries made by the Scribe were at my direction and personally dictated by me. I have reviewed the chart and agree that the record accurately reflects my personal performance of the history, physical exam, medical decision making, and the department course for this patient. I have also personally directed, reviewed, and agree with the discharge instructions and disposition. Disposition - Clinical Impression Clinical Impression: Lymphangioleiomyomatosis, Chronic hypercapnic respiratory failure - Patient ED Disposition Is Patient to be Admitted: Yes Discussed With : Colleen Youssef Doctor Will See Patient In The: ED Counseled Patient/Family Regarding: Studies Performed, Diagnosis - Disposition Disposition Time: 20:30 Condition: FAIR - Pt Status Changed To: Hospital Disposition Of: Observation - POA Present On Arrival: None
[2018-09-27 16:17] LABS: BASO % 0.4 % (0.0-2.0); EOS # 0.1 K/uL (0.0-0.7); EOS % 1.2 % (0.0-4.0); HEMOGLOBIN 13.4 g/dL (12.0-16.0); LYMPH # 1.6 K/uL (1.0-4.3); LYMPH % 19.6 % (20.0-40.0); MEAN CELL VOLUME 88.5 fl (81.0-99.0); MEAN CORPUSCULAR HEMOGLOBIN 28.5 pg (27.0-31.0); MEAN CORPUSCULAR HGB CONC 32.2 g/dL (33.0-37.0); MEAN PLATELET VOLUME 7.2 fl (7.2-11.7); MONO # 0.9 K/uL (0.0-0.8); MONO % 11.4 % (0.0-10.0); NEUT # 5.4 K/uL (1.8-7.0); NEUT % 67.4 % (50.0-75.0); RBC 4.69 Mil/uL (3.80-5.20); RED CELL DISTRIBUTION WIDTH 13.9 % (11.5-14.5)
[2018-09-27 16:36] LABS: BLOOD UREA NITROGEN 9 mg/dl (7-17); CALCIUM 9.7 mg/dL (8.4-10.2); GFR NON-AFRICAN AMERICAN > 60
[2018-09-27 17:01] LABS: ABG ALLEN TEST YES; ARTERIAL BLOOD GAS HCO3 29.8 mmol/L (21-28); ARTERIAL BLOOD GAS O2 SAT 100.5 % (95-98); ARTERIAL BLOOD GAS PCO2 65 mm/Hg (35-45); ARTERIAL BLOOD GAS PH 7.33 (7.35-7.45); ARTERIAL BLOOD GAS PO2 110 mm/Hg (80-100); ARTERIAL BLOOD GAS TCO2 36.3 mmol/L (22-28)
[2018-09-27] MEDS ORDERED: Albuterol-Ipratrop 3 mg / 0.5 (3 ml) UD INH STA (17:14)
[2018-09-27] MEDS ORDERED: Promethazine/Cod 6.25mg-10mg/5ml Syr UD PO STA (19:39)
[2018-09-27] MEDS ORDERED: Promethazine/Cod 6.25mg-10mg/5ml Syr UD ONE (19:50)
[2018-09-27] MEDS ORDERED: Albuterol 0.083% Inhal Sol (2.5 mg/3 mL) UD INH STA (20:08)
[2018-09-27] MEDS ORDERED: levoFLOXacin 500 mg in D5W 500 MG/100 ML BAG IVPB STA (20:30)
[2018-09-27] MEDS ORDERED: Albuterol 0.083% Inhal Sol (2.5 mg/3 mL) UD ONE (21:01)
[2018-09-27] MEDS ORDERED: levoFLOXacin 500 mg in D5W 500 MG/100 ML BAG IVPB ONE (21:01)
[2018-09-27] MEDS ORDERED: Albuterol-Ipratrop 3 mg / 0.5 (3 ml) UD INH PRN (21:04)
[2018-09-27] MEDS ORDERED: Patient's Own Med (Albuterol Sulfate 2 PUFF) IH PRN (21:04)
--- NOTE | 2018-09-27 21:16 | CP.PCM.HP ---
<Chi Miranda - Last Filed: 09/27/18 21:14> History of Present Illness - History of Present Illness History of Present Illness: 58 year old female, with a past medical history of COPD, JIMENEZ ( lymphangioleiomyomatosis), endometriosis, depression and chronic fatigue syndrome, presents to the ED via EMS complaining of shortness of breath and weakness for the past 2 days. Patient reports she is normally short of breath due to COPD but feels more weak than usual. She states she has chills, cough, congestion but denies fever. She also reports that she stopped taking Prednisone about a week ago. Patient states that at home, she is on Oxygen and uses nebulizer. Patient indicates that due to the medication, Roflumilast, she normally has diarrhea. Denies abdomnal pain, dizziness, vomiting, no urinary sx. PMD: Dr Cardona Biostatistics Professor: Dr. Interiano. PMH: JIMENEZ (lymphangioleiomyomatosis), COPD, endometriosis, anxiety, and depression Medications: see med list Allergies: Sulfa drugs result in generalized rash PSH: Video-assisted thoracoscopy and lung biopsy because of recurrent spontaneous pneumothorax, D&C for uterine fibroids, benign breast cyst removal Fam: mother age 60 from breast cancer, father age 803 from kidney problem, brother has DM2 SOC: quit smoking 2 years ago, smoked 1 pack/day for about 25 years, denies alcohol and drugs ROS: 12 points assessed and negative unless otherwise reported in HPI Present on Admission - Present on Admission Any Indicators Present on Admission: No Past Patient History - Infectious Disease Hx of Infectious Diseases: None - Past Medical History & Family History Past Medical History?: Yes - Past Social History Smoking Status: Former Smoker - CARDIAC Hx Congestive Heart Failure: No Hx Hypercholesterolemia: No Hx Hypertension: No - PULMONARY Hx Asthma: Yes Hx Chronic Obstructive Pulmonary Disease (COPD): Yes Hx Pneumonia: Yes - NEUROLOGICAL Hx Neurological Disorder: No - HEENT Hx HEENT Problems: Yes Other/Comment: Corrected vision - RENAL Hx Chronic Kidney Disease: No - ENDOCRINE/METABOLIC Hx Hypothyroidism: No - HEMATOLOGICAL/ONCOLOGICAL Hx Human Immunodeficiency Virus (HIV): No - INTEGUMENTARY Hx Dermatological Problems: No - MUSCULOSKELETAL/RHEUMATOLOGICAL Hx Arthritis: No Hx Rheumatoid Arthritis: No - GASTROINTESTINAL Hx Gastrointestinal Disorders: No - GENITOURINARY/GYNECOLOGICAL Hx Genitourinary Disorders: Yes Other/Comment: Endometriosis. Uterine fibroids - PSYCHIATRIC Hx Anxiety: Yes Hx Depression: Yes - SURGICAL HISTORY Hx Pulmonary Surgery: Yes (VATS lung biopsy and pleurodesis) Other/Comment: breast cyst removal (benign), D&C for uterine fibroids, chest tube x2 (spontaneous pneumothorax) with lung biopsy done on second episode. - ANESTHESIA Hx Anesthesia: Yes Hx Anesthesia Reactions: No Hx Malignant Hyperthermia: No Meds Allergies/Adverse Reactions: Allergies Allergy/AdvReac Type Severity Reaction Status Date / Time Sulfa (Sulfonamide Allergy RASH Verified 09/27/18 15:23 Antibiotics) Physical Exam - Constitutional Appears: In Acute Distress (due to sob) - Head Exam Head Exam: NORMAL INSPECTION - Eye Exam Eye Exam: EOMI - Respiratory Exam Respiratory Exam: Decreased Breath Sounds, Clear to Auscultation Bilateral. absent: Rales, Wheezes - Cardiovascular Exam Cardiovascular Exam: REGULAR RHYTHM, +S1, +S2. absent: Tachycardia - GI/Abdominal Exam GI & Abdominal Exam: Normal Bowel Sounds, Soft. absent: Distended, Tenderness - Extremities Exam Extremities exam: Negative for: pedal edema - Neurological Exam Neurological exam: Alert, CN II-XII Intact, Oriented x3 - Skin Skin Exam: Dry, Warm Results - Vital Signs Recent Vital Signs: Last Vital Signs Temp 98.8 F 09/27/18 15:24 Pulse 103 H 09/27/18 18:58 Resp 20 09/27/18 18:58 BP 167/92 H 09/27/18 18:58 Pulse Ox 98 09/27/18 19:44 - Labs Result Diagrams: 09/27/18 16:14 09/27/18 16:14 Labs: Laboratory Results - last 24 hr 09/27/18 09/27/18 09/27/18 16:14 16:14 16:14 WBC 8.0 RBC 4.69 Hgb 13.4 Hct 41.5 MCV 88.5 MCH 28.5 MCHC 32.2 L RDW 13.9 Plt Count 323 MPV 7.2 Neut % (Auto) 67.4 Lymph % (Auto) 19.6 L [place] % (Auto) 11.4 H Eos % (Auto) 1.2 Baso % (Auto) 0.4 Neut # (Auto) 5.4 Lymph # (Auto) 1.6 [place] # (Auto) 0.9 H Eos # (Auto) 0.1 Baso # (Auto) 0.0 pCO2 pO2 HCO3 ABG pH ABG Total CO2 ABG O2 Saturation ABG Base Excess Contreras Test ABG Potassium A-a O2 Difference Glucose Lactate FiO2 Sodium 140 Potassium 3.8 Chloride 103 Carbon Dioxide 29 Anion Gap 12 BUN 9 Creatinine 0.6 L Est GFR ( Amer) > 60 Est GFR (Non-Af Amer) > 60 Random Glucose 120 H Calcium 9.7 Troponin I < 0.0120 NT-Pro-B Natriuret Pep Arterial Blood Potassium Influenza Typ A,B (EIA) Negative for flu a/b 09/27/18 09/27/18 16:38 17:13 WBC RBC Hgb Hct MCV MCH MCHC RDW Plt Count MPV Neut % (Auto) Lymph % (Auto) [place] % (Auto) Eos % (Auto) Baso % (Auto) Neut # (Auto) Lymph # (Auto) [place] # (Auto) Eos # (Auto) Baso # (Auto) pCO2 65 H pO2 110 H HCO3 29.8 H ABG pH 7.33 L ABG Total CO2 36.3 H ABG O2 Saturation 100.5 H ABG Base Excess 6.2 H Contreras Test Yes ABG Potassium 3.4 L A-a O2 Difference 37.0 Glucose 108 H Lactate 0.6 L FiO2 32.0 Sodium 139.0 Potassium Chloride 106.0 Carbon Dioxide Anion Gap BUN Creatinine Est GFR ( Amer) Est GFR (Non-Af Amer) Random Glucose Calcium Troponin I NT-Pro-B Natriuret Pep 26.7 Arterial Blood Potassium 3.4 L Influenza Typ A,B (EIA) Assessment & Plan - Assessment and Plan (Free Text) Assessment: 58 year old female with PMH of significant for advanced stage COPD/Lymphangioleiomyomatosis, obesity, Chronic pain syndrome, anxiety admitted for evaluatin and management of worsening dyspnea and cough Plan: Possible Pneumonia Advanced COPD Lymphangioleiomyomatosis Acute on Chronic hypercapnic respiratory failure - afebrile, tachypneic, dyspnea - VSS - Chest CT: Extensive bullous change and scarring both lungs. No significant change compared to previous study. No consolidation or atelectasis. - Procalcitonin pending - cont Acetazolamide and rest of home meds - Azithromycin - DuoNEB Q4, Hydrocortisone 100 mg IV Q12 - Biostatistics Professor Dr. Interiano consulted, recommendations appreciated. - labs in am Chronic Pain syndrome - Continue Percocet, - Start Sertraline 25 mg po qhs - Physical therapy consult ordered. Anxiety - cont Xanax DVT prophylaxis -Lovenox 40 mg sc daily <Colleen Youssef - Last Filed: 09/27/18 23:43> Results - Vital Signs Recent Vital Signs: Last Vital Signs Temp 97 F L 09/27/18 23:22 Pulse 103 H 09/27/18 23:22 Resp 20 09/27/18 23:22 BP 167/92 H 09/27/18 23:22 Pulse Ox 95 09/27/18 23:22 - Labs Result Diagrams: 09/27/18 16:14 09/27/18 16:14 Labs: Laboratory Results - last 24 hr 09/27/18 09/27/18 09/27/18 16:14 16:14 16:14 WBC 8.0 RBC 4.69 Hgb 13.4 Hct 41.5 MCV 88.5 MCH 28.5 MCHC 32.2 L RDW 13.9 Plt Count 323 MPV 7.2 Neut % (Auto) 67.4 Lymph % (Auto) 19.6 L [place] % (Auto) 11.4 H Eos % (Auto) 1.2 Baso % (Auto) 0.4 Neut # (Auto) 5.4 Lymph # (Auto) 1.6 [place] # (Auto) 0.9 H Eos # (Auto) 0.1 Baso # (Auto) 0.0 pCO2 pO2 HCO3 ABG pH ABG Total CO2 ABG O2 Saturation ABG Base Excess Contreras Test ABG Potassium A-a O2 Difference Glucose Lactate FiO2 Sodium 140 Potassium 3.8 Chloride 103 Carbon Dioxide 29 Anion Gap 12 BUN 9 Creatinine 0.6 L Est GFR ( Amer) > 60 Est GFR (Non-Af Amer) > 60 Random Glucose 120 H Calcium 9.7 Troponin I < 0.0120 NT-Pro-B Natriuret Pep Arterial Blood Potassium Influenza Typ A,B (EIA) Negative for flu a/b 09/27/18 09/27/18 16:38 17:13 WBC RBC Hgb Hct MCV MCH MCHC RDW Plt Count MPV Neut % (Auto) Lymph % (Auto) [place] % (Auto) Eos % (Auto) Baso % (Auto) Neut # (Auto) Lymph # (Auto) [place] # (Auto) Eos # (Auto) Baso # (Auto) pCO2 65 H pO2 110 H HCO3 29.8 H ABG pH 7.33 L ABG Total CO2 36.3 H ABG O2 Saturation 100.5 H ABG Base Excess 6.2 H Contreras Test Yes ABG Potassium 3.4 L A-a O2 Difference 37.0 Glucose 108 H Lactate 0.6 L FiO2 32.0 Sodium 139.0 Potassium Chloride 106.0 Carbon Dioxide Anion Gap BUN Creatinine Est GFR ( Amer) Est GFR (Non-Af Amer) Random Glucose Calcium Troponin I NT-Pro-B Natriuret Pep 26.7 Arterial Blood Potassium 3.4 L Influenza Typ A,B (EIA) Attending/Attestation - Attestation I have personally seen and examined this patient.: Yes I have fully participated in the care of the patient.: Yes I have reviewed all pertinent clinical information: Yes Notes (Text): 09/27/18 23:42 agree with findings and plan as above
[2018-09-27] MEDS ORDERED: ACETAMINOPHEN PO PRN (21:36)
[2018-09-27] MEDS ORDERED: OXYCODONE HCL PO PRN (21:36)
[2018-09-27] MEDS ORDERED: Albuterol HFA 90 mcg/actuation (8 g) INH PRN (21:37)
[2018-09-27] MEDS ORDERED: ROFLUMILAST 250 MCG PO SCH (22:00)
[2018-09-28] MEDS: Albuterol-Ipratrop 3 mg / 0.5 (3 ml) UD INH SCH ×6 (03:36→19:22)
[2018-09-28 06:34] LABS: BASO % 0.1 % (0.0-2.0); HEMOGLOBIN 13.3 g/dL (12.0-16.0); LYMPH # 0.4 K/uL (1.0-4.3); LYMPH % 8.1 % (20.0-40.0); MEAN CELL VOLUME 88.1 fl (81.0-99.0); MEAN CORPUSCULAR HEMOGLOBIN 28.6 pg (27.0-31.0); MEAN CORPUSCULAR HGB CONC 32.5 g/dL (33.0-37.0); MEAN PLATELET VOLUME 7.4 fl (7.2-11.7); MONO % 0.9 % (0.0-10.0); NEUT # 4.7 K/uL (1.8-7.0); NEUT % 90.9 % (50.0-75.0); NRBC % 0.1 % (0.0-0.0); PLATELET COUNT 335 K/uL (130-400); RBC 4.67 Mil/uL (3.80-5.20); WHITE BLOOD COUNT 5.2 K/uL (4.8-10.8)
[2018-09-28 06:56] LABS: ALB/GLOB RATIO 1.3 (1.0-2.1); ALBUMIN 4.1 g/dL (3.5-5.0); ALT/SGPT 52 U/L (9-52); AST/SGOT 39 U/L (14-36); BLOOD UREA NITROGEN 10 mg/dl (7-17); CALCIUM 9.7 mg/dL (8.4-10.2); GFR NON-AFRICAN AMERICAN > 60
--- NOTE | 2018-09-28 07:01 | CARD ---
APPROVED REPORT Date of service: 09/27/2018 EKG Measurement Heart [id number] <Conclusion> Sinus tachycardia with premature atrial complexes Otherwise normal ECG
[2018-09-28] MEDS ORDERED: Azithromycin 500 MG in Sodium Chloride 0.9% 250 ML IVPB ONE (09:00)
[2018-09-28] MEDS: Enoxaparin 40 mg Syringe SC SCH (09:02)
[2018-09-28] MEDS: acetaZOLAMIDE 500 mg SR Cap PO SCH (09:02)
[2018-09-28] MEDS: Oxycodone/Acetaminophen 5/325 mg Tab PO PRN ×3 (09:14→22:38)
--- NOTE | 2018-09-28 10:21 | RAD ---
Date of service: 09/27/2018 HISTORY: Dyspnea COMPARISON: 04/04/2018. TECHNIQUE: Chest PA and lateral FINDINGS: LINES AND TUBES: None. LUNG AND PLEURA: The lungs are hyperinflated and there is peribronchial thickening with chronic changes in both lungs. No pleural effusion or pneumothorax. HEART AND MEDIASTINUM: The heart is not enlarged. No aortic atherosclerotic calcification present. The hilar and mediastinal contours are within normal limits. SKELETAL STRUCTURES: The bony structures are within normal limits for the patient's age. VISUALIZED UPPER ABDOMEN: Normal. OTHER FINDINGS: None. IMPRESSION: No active pulmonary disease. COPD.
[2018-09-28 10:46] LABS: LYMPHOCYTE 6 % (20-50); MONOCYTE 1 % (0-10); NEUTROPHIL 93 % (42-75); PLATELET ESTIMATE NORMAL (NORMAL); TOTAL CELLS COUNTED 100
--- NOTE | 2018-09-28 10:48 | CP.PCM.PN ---
<Modesto Ernst - Last Filed: 09/28/18 15:50> Subjective - Date & Time of Evaluation Date of Evaluation: 09/28/18 Time of Evaluation: 09:20 - Subjective Subjective: 58 year old female, with a past medical history of COPD, JIMENEZ (lympha ngioleiomyomatosis), endometriosis, depression and chronic fatigue syndrome admitted for evaluation of shortness of breath and weakness. Patient seen and evaluated at bedside in AM. No acute events overnight. Patient currently on NC 2.5 L and able to talk for 5-10 mins without getting SOB. Reports feeling weakness and decreased appetite. Denies any fever, chills, headache, CP, nausea, vomiting. Objective - Vital Signs/Intake and Output Vital Signs (last 24 hours): Temp Pulse Resp BP Pulse Ox 98 F 117 H 20 122/84 93 L 09/28/18 08:33 09/28/18 08:33 09/28/18 08:33 09/28/18 08:33 09/28/18 09:00 - Medications Medications: Current Medications Acetaminophen (Tylenol 325mg Tab) 650 mg PO Q6 PRN PRN Reason: Pain, Mild (1-3) Acetazolamide (Diamox Sequels 500 Mg Sr Cap) 500 mg PO DAILY DENISSE Last Admin: 09/28/18 09:02 Dose: 500 mg Albuterol (Ventolin Hfa 90 Mcg/Actuation (8 G)) 2 puff INH RQ4 PRN PRN Reason: Shortness of Breath Albuterol Sulfate (Albuterol 0.083% Inhal Caridad (2.5 Mg/3 Ml) Ud) 2.5 mg INH RQ4 PRN PRN Reason: Shortness of Breath Albuterol/Ipratropium (Duoneb 3 Mg/0.5 Mg (3 Ml) Ud) 3 ml INH RQ4 DENISSE Last Admin: 09/28/18 07:34 Dose: 3 ml Alprazolam (Xanax) 0.5 mg PO Q8 PRN PRN Reason: Anxiety Last Admin: 09/28/18 09:15 Dose: 0.5 mg Enoxaparin Sodium (Lovenox) 40 mg SC DAILY DENISSE; Protocol Last Admin: 09/28/18 09:02 Dose: 40 mg Fluticasone Propionate (Flonase) 1 spr KIRBY BID PRN PRN Reason: Nasal congestion Ketorolac Tromethamine (Toradol) 30 mg IVP Q6 PRN PRN Reason: Pain, moderate (4-7) Methylprednisolone (Solu-Medrol) 60 mg IVP Q12 [facility] Last Admin: 09/28/18 08:59 Dose: 60 mg Oxycodone/Acetaminophen (Percocet 5/325 Mg Tab) 1 tab PO Q6 PRN PRN Reason: Pain, severe (8-10) Stop: 10/01/18 09:03 Last Admin: 09/28/18 09:14 Dose: 1 tab Promethazine HCl/Dextromethorphan (Phenergan Dm Syrup) 5 ml PO Q8 PRN PRN Reason: Cough Roflumilast (Daliresp) 250 mcg PO HS [facility] Last Admin: 09/28/18 00:24 Dose: 250 mcg Sertraline HCl (Zoloft) 25 mg PO [facility] Last Admin: 09/28/18 00:25 Dose: Not Given - Labs Labs: 09/28/18 06:00 09/28/18 06:00 - Constitutional Appears: No Acute Distress - Head Exam Head Exam: ATRAUMATIC, NORMOCEPHALIC - Eye Exam Eye Exam: EOMI, Normal appearance - ENT Exam ENT Exam: Mucous Membranes Moist - Respiratory Exam Respiratory Exam: Decreased Breath Sounds. absent: Rales, Rhonchi, Wheezes, Respiratory Distress - Cardiovascular Exam Cardiovascular Exam: REGULAR RHYTHM, +S1, +S2. absent: Murmur - GI/Abdominal Exam GI & Abdominal Exam: Soft, Normal Bowel Sounds. absent: Distended, Tenderness - Extremities Exam Extremities Exam: Pedal Edema. absent: Calf Tenderness, Joint Swelling - Neurological Exam Neurological Exam: Alert, Awake, Oriented x3 - Psychiatric Exam Psychiatric exam: Normal Affect, Normal Mood - Skin Skin Exam: Dry, Intact, Normal Color Assessment and Plan - Assessment and Plan (Free Text) Assessment: 58 year old female with PMH of significant for advanced stage COPD/Lymphangioleiomyomatosis, obesity, Chronic pain syndrome, anxiety admitted for evaluation and management of worsening dyspnea and cough. Chest CT: Extensive centrilobular pulmonary emphysema. No pulmonary infiltrate or mass. Scattered bullae in right lung. Possible pedunculated hyperdense cyst in mid left kidney, decreased in size from prior CT examination. Correlate with renal ultrasound. 5 cm exophytic cortical cyst upper pole right kidney. CXR: No acute pulmonary disease, COPD EKG: Sinus tachycardia with PACs Plan: Advanced COPD/Lymphangioleiomyomatosis Acute on Chronic hypercapnic respiratory failure - Afebrile, Tachycardic - S/P Azithromycin and Levofloxacin in ED. - CBC, CMP WNL, ABG consistent with respiratory acidosis with metabolic compensation. - BiPAP setting: IPAP 10/ EPAP 5/ Fio2 30% /Rate 14 overnight and daytime PRN - Pulmonary Dr. Interiano consult: Appreciate recommendations. - Cont Acetazolamide, Duoneb Q4hr, ALbuterol Neb and INH Q4hr PRN, Fluticasone inhaler - Continue Solumedrol 60 mg Q12 - Start promethazine 5 mg PO Q6hr - Hold Daliresp - Monitor respiratory status Chronic Pain syndrome - Continue Percocet PRN - Toradol 30 mg IVP Q6 PRN - Start Sertraline 25 mg po qhs - Physical therapy consult ordered. Anxiety - Cont Xanax 0.5 Q8hr PRN Prophylaxis -DVT: Lovenox 40 mg sc daily -GI: Protonix 40 mg PO shalini <Helen Ayala - Last Filed: 09/28/18 16:47> Objective - Vital Signs/Intake and Output Vital Signs (last 24 hours): Temp Pulse Resp BP Pulse Ox 98.4 F 118 H 20 129/80 95 09/28/18 16:14 09/28/18 16:14 09/28/18 16:14 09/28/18 16:14 09/28/18 16:14 - Medications Medications: Current Medications Acetaminophen (Tylenol 325mg Tab) 650 mg PO Q6 PRN PRN Reason: Pain, Mild (1-3) Acetazolamide (Diamox Sequels 500 Mg Sr Cap) 500 mg PO DAILY [facility] Last Admin: 09/28/18 09:02 Dose: 500 mg Albuterol Sulfate (Albuterol 0.083% Inhal [place] (2.5 Mg/3 Ml) Ud) 2.5 mg INH RQ4 PRN PRN Reason: Shortness of Breath Albuterol/Ipratropium (Duoneb 3 Mg/0.5 Mg (3 Ml) Ud) 3 ml INH RQID [facility] Last Admin: 09/28/18 15:11 Dose: 3 ml Alprazolam (Xanax) 0.5 mg PO Q8 PRN PRN Reason: Anxiety Last Admin: 09/28/18 09:15 Dose: 0.5 mg Enoxaparin Sodium (Lovenox) 40 mg SC DAILY [facility]; Protocol Last Admin: 09/28/18 09:02 Dose: 40 mg Fluticasone Propionate (Flonase) 1 spr KIRBY BID PRN PRN Reason: Nasal congestion Last Admin: 09/28/18 15:56 Dose: 1 spr Ketorolac Tromethamine (Toradol) 30 mg IVP Q6 PRN PRN Reason: Pain, moderate (4-7) Methylprednisolone (Solu-Medrol) 60 mg IVP Q12 [facility] Last Admin: 09/28/18 08:59 Dose: 60 mg Oxycodone/Acetaminophen (Percocet 5/325 Mg Tab) 1 tab PO Q6 PRN PRN Reason: Pain, severe (8-10) Stop: 10/01/18 09:03 Last Admin: 09/28/18 16:01 Dose: 1 tab Pantoprazole Sodium (Protonix Ec Tab) 40 mg PO DAILY [facility] Last Admin: 09/28/18 13:39 Dose: 40 mg Promethazine HCl/Dextromethorphan (Phenergan Dm Syrup) 5 ml PO Q8 PRN PRN Reason: Cough Last Admin: 09/28/18 11:38 Dose: 5 ml Roflumilast (Daliresp) 250 mcg PO [facility] Last Admin: 09/28/18 00:24 Dose: 250 mcg Sertraline HCl (Zoloft) 25 mg PO [facility] Last Admin: 09/28/18 00:25 Dose: Not Given - Labs Labs: 09/28/18 06:00 09/28/18 06:00 Attending/Attestation - Attestation I have personally seen and examined this patient.: Yes I have fully participated in the care of the patient.: Yes I have reviewed all pertinent clinical information, including history, physical exam and plan: Yes Notes (Text): Acute on Chronic Hypercapneic and Hypoxemic Resp Failure on Home O2 and Bipap Acute COPD exacerbation JIMENEZ, longstanding , severe - poss lung transplant candidate Generalized Weakness, Physical Deconditioning
--- NOTE | 2018-09-28 11:23 | CP.PCM.CON ---
History of Present Illness - History of Present Illness History of Present Illness: This 58-year-old female is known to me from the outpatient setting as well as prior hospitalizations. 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 She has chronic hypoxemia and hypercapnic ventilatory failure requiring the use of home O2 as well as noninvasive positive pressure ventilation with BiPAP mask. She has been hospitalized a number of occasions because of decompensation of her respiratory status. At this time she presented to the emergency department because of a generalized sense of fatigue and shortness of breath. She was found to have acute on chronic hypercapnic ventilatory failure and was admitted to the hospital. She does admit to chronic cough which is generally nonproductive. She has been using her BiPAP mask ventilator for the greater part of the day as well as overnight. She has been evaluated at [facility] for lung transplant surgery but has been declined because of lack of outpatient support postoperatively. She will hopefully be evaluated again in the future and qualify for transplant. Past Patient History - Infectious Disease Hx of Infectious Diseases: None - Past Medical History & Family History Past Medical History?: Yes - Past Social History Smoking Status: Light Smoker < 10 Cigarettes Daily Alcohol: None Drugs: Denies Home Situation {Lives}: Alone - CARDIAC Hx Cardiac Disorders: No - PULMONARY Hx Chronic Obstructive Pulmonary Disease (COPD): Yes Hx Emphysema: Yes Other/Comment: Lymphangioleiomyomatosis, prior spontaneous pneumothorax x2 - NEUROLOGICAL Hx Neurological Disorder: No - HEENT Hx HEENT Problems: Yes Other/Comment: Uses Eyeglasses - RENAL Hx Chronic Kidney Disease: No - ENDOCRINE/METABOLIC Hx Endocrine Disorders: No - HEMATOLOGICAL/ONCOLOGICAL Hx Blood Disorders: No Hx Human Immunodeficiency Virus (HIV): No - INTEGUMENTARY Hx Dermatological Problems: No - MUSCULOSKELETAL/RHEUMATOLOGICAL Hx Musculoskeletal Disorders: Yes Hx Back Pain: Yes Other/Comment: chronic fatigue syndrome. - GASTROINTESTINAL Hx Gastrointestinal Disorders: No - GENITOURINARY/GYNECOLOGICAL Hx Genitourinary Disorders: Yes - PSYCHIATRIC Hx Depression: Yes Hx Substance Use: No - SURGICAL HISTORY Hx Pulmonary Surgery: Yes (VATS lung biopsy and pleurodesis) Other/Comment: breast cyst removal (benign), D&C for uterine fibroids, chest tube x2 (spontaneous pneumothorax) with lung biopsy done on second episode. - ANESTHESIA Hx Anesthesia: Yes Hx Anesthesia Reactions: No Hx Malignant Hyperthermia: No Has any member of the family had a problem w/ anesthesia?: No Meds Allergies/Adverse Reactions: Allergies Allergy/AdvReac Type Severity Reaction Status Date / Time Sulfa (Sulfonamide Allergy RASH Verified 09/27/18 15:23 Antibiotics) - Medications Medications: Current Medications Acetaminophen (Tylenol 325mg Tab) 650 mg PO Q6 PRN PRN Reason: Pain, Mild (1-3) Acetazolamide (Diamox Sequels 500 Mg Sr Cap) 500 mg PO DAILY [facility] Last Admin: 09/28/18 09:02 Dose: 500 mg Albuterol (Ventolin Hfa 90 Mcg/Actuation (8 G)) 2 puff INH RQ4 PRN PRN Reason: Shortness of Breath Albuterol Sulfate (Albuterol 0.083% Inhal Caridad (2.5 Mg/3 Ml) Ud) 2.5 mg INH RQ4 PRN PRN Reason: Shortness of Breath Albuterol/Ipratropium (Duoneb 3 Mg/0.5 Mg (3 Ml) Ud) 3 ml INH RQ4 [facility] Last Admin: 09/28/18 07:34 Dose: 3 ml Alprazolam (Xanax) 0.5 mg PO Q8 PRN PRN Reason: Anxiety Last Admin: 09/28/18 09:15 Dose: 0.5 mg Enoxaparin Sodium (Lovenox) 40 mg SC DAILY [facility]; Protocol Last Admin: 09/28/18 09:02 Dose: 40 mg Fluticasone Propionate (Flonase) 1 spr KIRBY BID PRN PRN Reason: Nasal congestion Ketorolac Tromethamine (Toradol) 30 mg IVP Q6 PRN PRN Reason: Pain, moderate (4-7) Methylprednisolone (Solu-Medrol) 60 mg IVP Q12 [facility] Last Admin: 09/28/18 08:59 Dose: 60 mg Oxycodone/Acetaminophen (Percocet 5/325 Mg Tab) 1 tab PO Q6 PRN PRN Reason: Pain, severe (8-10) Stop: 10/01/18 09:03 Last Admin: 09/28/18 09:14 Dose: 1 tab Promethazine HCl/Dextromethorphan (Phenergan Dm Syrup) 5 ml PO Q8 PRN PRN Reason: Cough Roflumilast (Daliresp) 250 mcg PO HS [facility] Last Admin: 09/28/18 00:24 Dose: 250 mcg Sertraline HCl (Zoloft) 25 mg PO HS [facility] Last Admin: 09/28/18 00:25 Dose: Not Given Physical Exam - Additional Findings Additional findings: She has 1+ dependent edema both lower extremities. Nail beds are dusky. No calf tenderness or palpable venous cords. No palpable lymphadenopathy. Cushingoid facies are noted. Peripheral pulses are diminished but present in upper extremities, but not felt in the ankles or foot. Pharynx is pink and mucous membranes are moist. No exudate. Nares are patent bilaterally. Mucosa is dry and hyperemic with bleeding points bilaterally Neck is supple and trachea is midline. No neck vein distention. No carotid bruit. No dullness on chest percussion. Equal expansion Normal vocal/tactile fremitus or Shortened inspiratory phase is noted bilaterally. No audible wheezing. Dry basal rales are heard posteriorly. No bronchial breath sounds or egophony. Occasional sonorous rhonchi are heard and lower lobes. Heart sounds are well heard and rhythm is regular/tachycardic. Results - Vital Signs Recent Vital Signs: Last Vital Signs Temp 98 F 09/28/18 08:33 Pulse 117 H 09/28/18 08:33 Resp 20 09/28/18 08:33 BP 122/84 09/28/18 08:33 Pulse Ox 93 L 09/28/18 09:00 - Labs Result Diagrams: 09/28/18 06:00 09/28/18 06:00 Labs: Laboratory Results - last 24 hr 09/27/18 09/27/18 09/27/18 16:14 16:14 16:14 WBC 8.0 RBC 4.69 Hgb 13.4 Hct 41.5 MCV 88.5 MCH 28.5 MCHC 32.2 L RDW 13.9 Plt Count 323 MPV 7.2 Neut % (Auto) 67.4 Lymph % (Auto) 19.6 L [place] % (Auto) 11.4 H Eos % (Auto) 1.2 Baso % (Auto) 0.4 Neut # (Auto) 5.4 Lymph # (Auto) 1.6 [place] # (Auto) 0.9 H Eos # (Auto) 0.1 Baso # (Auto) 0.0 Neutrophils % (Manual) Lymphocytes % (Manual) Monocytes % (Manual) Platelet Estimate RBC Morphology pCO2 pO2 HCO3 ABG pH ABG Total CO2 ABG O2 Saturation ABG Base Excess Contreras Test ABG Potassium A-a O2 Difference Glucose Lactate FiO2 Sodium 140 Potassium 3.8 Chloride 103 Carbon Dioxide 29 Anion Gap 12 BUN 9 Creatinine 0.6 L Est GFR ( Amer) > 60 Est GFR (Non-Af Amer) > 60 Random Glucose 120 H Calcium 9.7 Total Bilirubin AST ALT Alkaline Phosphatase Troponin I < 0.0120 NT-Pro-B Natriuret Pep Total Protein Albumin Globulin Albumin/Globulin Ratio Arterial Blood Potassium Influenza Typ A,B (EIA) Negative for flu a/b 09/27/18 09/27/18 09/28/18 16:38 17:13 06:00 WBC 5.2 RBC 4.67 Hgb 13.3 Hct 41.1 MCV 88.1 MCH 28.6 MCHC 32.5 L RDW 14.0 Plt Count 335 MPV 7.4 Neut % (Auto) 90.9 H Lymph % (Auto) 8.1 L [place] % (Auto) 0.9 Eos % (Auto) 0.0 Baso % (Auto) 0.1 Neut # (Auto) 4.7 Lymph # (Auto) 0.4 L [place] # (Auto) 0.0 Eos # (Auto) 0.0 Baso # (Auto) 0.0 Neutrophils % (Manual) 93 H Lymphocytes % (Manual) 6 L Monocytes % (Manual) 1 Platelet Estimate Normal RBC Morphology Normal pCO2 65 H pO2 110 H HCO3 29.8 H ABG pH 7.33 L ABG Total CO2 36.3 H ABG O2 Saturation 100.5 H ABG Base Excess 6.2 H Contreras Test Yes ABG Potassium 3.4 L A-a O2 Difference 37.0 Glucose 108 H Lactate 0.6 L FiO2 32.0 Sodium 139.0 Potassium Chloride 106.0 Carbon Dioxide Anion Gap BUN Creatinine Est GFR ( Amer) Est GFR (Non-Af Amer) Random Glucose Calcium Total Bilirubin AST ALT Alkaline Phosphatase Troponin I NT-Pro-B Natriuret Pep 26.7 Total Protein Albumin Globulin Albumin/Globulin Ratio Arterial Blood Potassium 3.4 L Influenza Typ A,B (EIA) 09/28/18 06:00 WBC RBC Hgb Hct MCV MCH MCHC RDW Plt Count MPV Neut % (Auto) Lymph % (Auto) [place] % (Auto) Eos % (Auto) Baso % (Auto) Neut # (Auto) Lymph # (Auto) [place] # (Auto) Eos # (Auto) Baso # (Auto) Neutrophils % (Manual) Lymphocytes % (Manual) Monocytes % (Manual) Platelet Estimate RBC Morphology pCO2 pO2 HCO3 ABG pH ABG Total CO2 ABG O2 Saturation ABG Base Excess Contreras Test ABG Potassium A-a O2 Difference Glucose Lactate FiO2 Sodium 142 Potassium 4.0 Chloride 104 Carbon Dioxide 31 H Anion Gap 11 BUN 10 Creatinine 0.6 L Est GFR ( Amer) > 60 Est GFR (Non-Af Amer) > 60 Random Glucose 160 H Calcium 9.7 Total Bilirubin 0.4 AST 39 H ALT 52 D Alkaline Phosphatase 66 Troponin I NT-Pro-B Natriuret Pep Total Protein 7.3 Albumin 4.1 Globulin 3.2 Albumin/Globulin Ratio 1.3 Arterial Blood Potassium Influenza Typ A,B (EIA) Assessment & Plan (1) Lymphangioleiomyomatosis Status: Chronic Priority: High (2) Acute on chronic respiratory failure with hypoxia and hypercapnia Status: Acute Priority: High - Assessment and Plan (Free Text) Plan: Agree with current medical management using parenteral corticosteroids and aerosol therapy. We'll temporarily discontinue Daliresp since patient reports having loose bowel movements since starting this drug. NPPV using BiPAP mask ventilation. If hypercarbia persist despite the above will assess for use of Trilogy ventilator. - Date & Time Date: 09/28/18 Time: 11:23
[2018-09-28] MEDS: Promethazine DM 6.25 mg-15 mg/5 ml Syrup PO PRN ×2 (11:38→22:35)
--- NOTE | 2018-09-28 11:52 | CT ---
Date of service: 09/27/2018 PROCEDURE: CT Chest without contrast HISTORY: dyspnea COPD possible infiltrate effusion COMPARISON: 07/25/2017 TECHNIQUE: Contiguous axial images were obtained through the chest without intravenous contrast enhancement. Sagittal and coronal reconstructions were performed. Radiation dose (DLP): 624.83 mGy-cm. This CT exam was performed using one or more of the following dose reduction techniques: Automated exposure control, adjustment of the mA and/or kV according to patient size, and/or use of iterative reconstruction technique. FINDINGS: LUNGS: No pulmonary infiltrate. There is severe centrilobular pulmonary emphysema. This is most prominent in the upper lobes. There is no pulmonary mass identified. There are scattered bullae in the right lung. MEDIASTINUM: Unremarkable thoracic aorta. No aneurysm. Normal sized heart. Main pulmonary artery unremarkable. No vascular congestion. No lymphadenopathy. No aortic atherosclerotic calcification or mural plaque present. PLEURA: No pleural fluid. No pneumothorax. BONES: No fracture. No destructive lesion. UPPER ABDOMEN: Pedunculated intermediate density mass in the mid left kidney, 1.5 cm greatest dimension. Possible hyperdense cyst. On prior examination of 07/25/2017, this measured 1.9 cm. Consider correlation with renal ultrasound. There is a 5.0 cm exophytic cortical cyst in the upper pole right kidney. This measures 9 Hounsfield units. This was not included on the prior examination. OTHER FINDINGS: None. IMPRESSION: Extensive centrilobular pulmonary emphysema. No pulmonary infiltrate or mass. Scattered bullae in right lung. Possible pedunculated hyperdense cyst in mid left kidney, decreased in size from prior CT examination. Correlate with renal ultrasound. 5 cm exophytic cortical cyst upper pole right kidney.
[2018-09-28] MEDS: Pantoprazole 40 mg EC Tab PO SCH (13:39)
[2018-09-28] MEDS: Albuterol 0.083% Inhal Sol (2.5 mg/3 mL) UD INH PRN (23:57)
[2018-09-29] MEDS: Albuterol-Ipratrop 3 mg / 0.5 (3 ml) UD INH SCH ×4 (07:24→19:22)
[2018-09-29] MEDS: Enoxaparin 40 mg Syringe SC SCH (08:50)
[2018-09-29] MEDS: Pantoprazole 40 mg EC Tab PO SCH (08:50)
[2018-09-29] MEDS: acetaZOLAMIDE 500 mg SR Cap PO SCH (08:50)
[2018-09-29] MEDS: Oxycodone/Acetaminophen 5/325 mg Tab PO PRN ×2 (08:58→16:38)
--- NOTE | 2018-09-29 09:20 | CP.PCM.PN ---
<Modesto Ernst - Last Filed: 09/29/18 11:38> Subjective - Date & Time of Evaluation Date of Evaluation: 09/29/18 Time of Evaluation: 08:35 - Subjective Subjective: Patient seen and examined at bedside in AM. No acute events overnight. Patient sitting comfortably in bed eating breakfast. Reports improvement in appetite. Currently on O2 NC 2.5 L without any respiratory distress at rest. Dyspnea improved compare to yesterday but still gets SOB with ambulation. Denies chest pain, headache, dizziness, N/V/D/C/F/C. Patient afebrile, VSS except for HR 97. Objective - Vital Signs/Intake and Output Vital Signs (last 24 hours): Temp Pulse Resp BP Pulse Ox 97.2 F L 97 H 16 119/75 100 09/29/18 08:42 09/29/18 08:42 09/29/18 08:42 09/29/18 08:42 09/29/18 08:42 - Medications Medications: Current Medications Acetaminophen (Tylenol 325mg Tab) 650 mg PO Q6 PRN PRN Reason: Pain, Mild (1-3) Acetazolamide (Diamox Sequels 500 Mg Sr Cap) 500 mg PO DAILY [facility] Last Admin: 09/29/18 08:50 Dose: 500 mg Albuterol Sulfate (Albuterol 0.083% Inhal Caridad (2.5 Mg/3 Ml) Ud) 2.5 mg INH RQ4 PRN PRN Reason: Shortness of Breath Last Admin: 09/28/18 23:57 Dose: 2.5 mg Albuterol/Ipratropium (Duoneb 3 Mg/0.5 Mg (3 Ml) Ud) 3 ml INH RQID [facility] Last Admin: 09/29/18 07:24 Dose: 3 ml Enoxaparin Sodium (Lovenox) 40 mg SC DAILY [facility]; Protocol Last Admin: 09/29/18 08:50 Dose: 40 mg Fluticasone Propionate (Flonase) 1 spr KIRBY BID PRN PRN Reason: Nasal congestion Last Admin: 09/28/18 15:56 Dose: 1 spr Home Med (Cetirizine Hcl [Wal-Zyr]) 5 mg PO Q12 [facility] Last Admin: 09/29/18 08:50 Dose: 5 mg Methylprednisolone (Solu-Medrol) 60 mg IVP Q12 [facility] Last Admin: 09/29/18 08:59 Dose: 60 mg Oxycodone/Acetaminophen (Percocet 5/325 Mg Tab) 1 tab PO Q6 PRN PRN Reason: Pain, severe (8-10) Stop: 10/01/18 09:03 Last Admin: 09/29/18 08:58 Dose: 1 tab Pantoprazole Sodium (Protonix Ec Tab) 40 mg PO DAILY [facility] Last Admin: 09/29/18 08:50 Dose: 40 mg Promethazine HCl/Dextromethorphan (Phenergan Dm Syrup) 5 ml PO Q8 PRN PRN Reason: Cough Last Admin: 09/28/18 22:35 Dose: 5 ml Roflumilast (Daliresp) 250 mcg PO HS [facility] Last Admin: 09/28/18 00:24 Dose: 250 mcg Sertraline HCl (Zoloft) 25 mg PO HS [facility] Last Admin: 09/28/18 21:54 Dose: Not Given - Labs Labs: 09/28/18 06:00 09/28/18 06:00 - Constitutional Appears: No Acute Distress - Head Exam Head Exam: ATRAUMATIC, NORMOCEPHALIC - Eye Exam Eye Exam: EOMI, Normal appearance - ENT Exam ENT Exam: Mucous Membranes Moist - Respiratory Exam Respiratory Exam: Decreased Breath Sounds. absent: Rales, Rhonchi, Wheezes, Respiratory Distress - Cardiovascular Exam Cardiovascular Exam: REGULAR RHYTHM, +S1, +S2 - GI/Abdominal Exam GI & Abdominal Exam: Soft, Normal Bowel Sounds. absent: Distended, Tenderness - Extremities Exam Extremities Exam: absent: Calf Tenderness, Pedal Edema, Tenderness - Neurological Exam Neurological Exam: Alert, Awake, Oriented x3 - Psychiatric Exam Psychiatric exam: Normal Affect, Normal Mood - Skin Skin Exam: Dry, Intact, Normal Color Assessment and Plan - Assessment and Plan (Free Text) Assessment: 58 year old female with PMH of significant for advanced stage COPD/Lymphangioleiomyomatosis, obesity, Chronic pain syndrome, anxiety admitted for acute on chronic hypercapneic respiratory failure. Chest CT: Extensive centrilobular pulmonary emphysema. No pulmonary infiltrate or mass. Scattered bullae in right lung. Possible pedunculated hyperdense cyst in mid left kidney, decreased in size from prior CT examination. Correlate with renal ultrasound. 5 cm exophytic cortical cyst upper pole right kidney. CXR: No acute pulmonary disease, COPD EKG: Sinus tachycardia with PACs Plan: Advanced COPD/Lymphangioleiomyomatosis Acute on Chronic hypercapnic respiratory failure - Afebrile, VSS except Tachycardic, On 2.5 L NC - BiPAP setting: IPAP 10/ EPAP 5/ Fio2 30% /Rate 14 overnight and daytime PRN - Pulmonary Dr. Interiano consult: Appreciate recommendations. - Cont Acetazolamide, Duoneb Q4hr, ALbuterol Neb and INH Q4hr PRN, Fluticasone inhaler - Continue Solumedrol 60 mg Q12 - Continue promethazine 5 mg PO Q6hr - Daliresp on hold - Monitor respiratory status Chronic Pain syndrome - Continue Percocet PRN and Toradol 30 mg IVP Q6 PRN for pain - Continue Sertraline 25 mg po qhs - Physical therapy continues, Recommends [facility] upon DC. Anxiety - Decrease Xanax from 0.5 to 0.25 Q8hr PRN Prophylaxis -DVT: Lovenox 40 mg sc daily -GI: Protonix 40 mg PO shalini <Colleen Youssef - Last Filed: 09/29/18 15:50> Objective - Vital Signs/Intake and Output Vital Signs (last 24 hours): Temp Pulse Resp BP Pulse Ox 97.2 F L 97 H 16 119/75 100 09/29/18 08:42 09/29/18 08:42 09/29/18 08:42 09/29/18 08:42 09/29/18 08:42 - Medications Medications: Current Medications Acetaminophen (Tylenol 325mg Tab) 650 mg PO Q6 PRN PRN Reason: Pain, Mild (1-3) Acetazolamide (Diamox Sequels 500 Mg Sr Cap) 500 mg PO DAILY [facility] Last Admin: 09/29/18 08:50 Dose: 500 mg Albuterol Sulfate (Albuterol 0.083% Inhal Caridad (2.5 Mg/3 Ml) Ud) 2.5 mg INH RQ4 PRN PRN Reason: Shortness of Breath Last Admin: 09/28/18 23:57 Dose: 2.5 mg Albuterol/Ipratropium (Duoneb 3 Mg/0.5 Mg (3 Ml) Ud) 3 ml INH RQID [facility] Last Admin: 09/29/18 15:18 Dose: 3 ml Alprazolam (Xanax) 0.25 mg PO Q8 PRN PRN Reason: Anxiety Stop: 10/06/18 09:16 Enoxaparin Sodium (Lovenox) 40 mg SC DAILY [facility]; Protocol Last Admin: 09/29/18 08:50 Dose: 40 mg Fluticasone Propionate (Flonase) 1 spr KIRBY BID PRN PRN Reason: Nasal congestion Last Admin: 09/28/18 15:56 Dose: 1 spr Home Med (Cetirizine Hcl [Wal-Zyr]) 5 mg PO Q12 [facility] Last Admin: 09/29/18 08:50 Dose: 5 mg Methylprednisolone (Solu-Medrol) 40 mg IVP Q12 [facility] Oxycodone/Acetaminophen (Percocet 5/325 Mg Tab) 1 tab PO Q6 PRN PRN Reason: Pain, severe (8-10) Stop: 10/01/18 09:03 Last Admin: 09/29/18 08:58 Dose: 1 tab Pantoprazole Sodium (Protonix Ec Tab) 40 mg PO DAILY [facility] Last Admin: 09/29/18 08:50 Dose: 40 mg Promethazine HCl/Dextromethorphan (Phenergan Dm Syrup) 5 ml PO Q8 PRN PRN Reason: Cough Last Admin: 09/29/18 14:39 Dose: 5 ml Roflumilast (Daliresp) 250 mcg PO HS [facility] Last Admin: 09/28/18 00:24 Dose: 250 mcg Sertraline HCl (Zoloft) 25 mg PO HS [facility] Last Admin: 09/28/18 21:54 Dose: Not Given - Labs Labs: 09/28/18 06:00 09/28/18 06:00 Attending/Attestation - Attestation I have personally seen and examined this patient.: Yes I have fully participated in the care of the patient.: Yes I have reviewed all pertinent clinical information, including history, physical exam and plan: Yes Notes (Text): 09/29/18 15:49 agree with findings and plan as above plan for dc to TCU when medically ready.
--- NOTE | 2018-09-29 12:04 | CP.PCM.PN ---
Subjective - Date & Time of Evaluation Date of Evaluation: 09/29/18 Time of Evaluation: 12:04 - Subjective Subjective: Comfortable sitting on EOB. Conversant, mildly dyspneic with conversation. Less tachycardic today (roflumilast has been held). Still has some complaint of chest wall discomfort on the right. Trace dependant edema both LE's. No cyanosis or clubbing. Neck is supple and trachea midline. No dullness on chest percussion. Tenderness in lower right, lateral chest wall. Breath sounds are present equally in both lungs. Inspiratory phase is shortened. No audible wheezing or bronchial breathing. Scattered dry rales in lower lobes of both lungs. Heart sounds are diminished, tachy at 96BPM. Will continue to hold roflumilast. Decrease dose of solumedrol. No need for antibiotic therapy. Continue physical therapy. Objective - Vital Signs/Intake and Output Vital Signs (last 24 hours): Temp Pulse Resp BP Pulse Ox 97.2 F L 97 H 16 119/75 100 09/29/18 08:42 09/29/18 08:42 09/29/18 08:42 09/29/18 08:42 09/29/18 08:42 - Medications Medications: Current Medications Acetaminophen (Tylenol 325mg Tab) 650 mg PO Q6 PRN PRN Reason: Pain, Mild (1-3) Acetazolamide (Diamox Sequels 500 Mg Sr Cap) 500 mg PO DAILY [facility] Last Admin: 09/29/18 08:50 Dose: 500 mg Albuterol Sulfate (Albuterol 0.083% Inhal Caridad (2.5 Mg/3 Ml) Ud) 2.5 mg INH RQ4 PRN PRN Reason: Shortness of Breath Last Admin: 09/28/18 23:57 Dose: 2.5 mg Albuterol/Ipratropium (Duoneb 3 Mg/0.5 Mg (3 Ml) Ud) 3 ml INH RQID [facility] Last Admin: 09/29/18 11:15 Dose: 3 ml Alprazolam (Xanax) 0.25 mg PO Q8 PRN PRN Reason: Anxiety Stop: 10/06/18 09:16 Enoxaparin Sodium (Lovenox) 40 mg SC DAILY [facility]; Protocol Last Admin: 09/29/18 08:50 Dose: 40 mg Fluticasone Propionate (Flonase) 1 spr KIRBY BID PRN PRN Reason: Nasal congestion Last Admin: 09/28/18 15:56 Dose: 1 spr Home Med (Cetirizine Hcl [Wal-Zyr]) 5 mg PO Q12 [facility] Last Admin: 09/29/18 08:50 Dose: 5 mg Methylprednisolone (Solu-Medrol) 60 mg IVP Q12 [facility] Last Admin: 09/29/18 08:59 Dose: 60 mg Oxycodone/Acetaminophen (Percocet 5/325 Mg Tab) 1 tab PO Q6 PRN PRN Reason: Pain, severe (8-10) Stop: 10/01/18 09:03 Last Admin: 09/29/18 08:58 Dose: 1 tab Pantoprazole Sodium (Protonix Ec Tab) 40 mg PO DAILY [facility] Last Admin: 09/29/18 08:50 Dose: 40 mg Promethazine HCl/Dextromethorphan (Phenergan Dm Syrup) 5 ml PO Q8 PRN PRN Reason: Cough Last Admin: 09/28/18 22:35 Dose: 5 ml Roflumilast (Daliresp) 250 mcg PO HS [facility] Last Admin: 09/28/18 00:24 Dose: 250 mcg Sertraline HCl (Zoloft) 25 mg PO HS [facility] Last Admin: 09/28/18 21:54 Dose: Not Given - Labs Labs: 09/28/18 06:00 09/28/18 06:00 Assessment and Plan (1) Lymphangioleiomyomatosis Status: Chronic (2) Acute on chronic respiratory failure with hypoxia and hypercapnia Status: Acute
[2018-09-29] MEDS: Promethazine DM 6.25 mg-15 mg/5 ml Syrup PO PRN (14:39)
[2018-09-29] MEDS ORDERED: methylPREDNISolone 40 MG in Sodium Chloride 0.9% 50 ML IV SCH (21:00)
[2018-09-29] MEDS: MethylPREDNISolone 40 mg Vial IVP SCH (21:04)
[2018-09-30] MEDS: Albuterol 0.083% Inhal Sol (2.5 mg/3 mL) UD INH PRN ×5 (00:53→23:55)
[2018-09-30] MEDS: Promethazine DM 6.25 mg-15 mg/5 ml Syrup PO PRN ×3 (03:26→23:32)
[2018-09-30 07:19] LABS: BASO % 0.2 % (0.0-2.0); EOS % 0.1 % (0.0-4.0); HEMOGLOBIN 12.3 g/dL (12.0-16.0); LYMPH # 0.8 K/uL (1.0-4.3); MEAN CELL VOLUME 92.8 fl (81.0-99.0); MEAN CORPUSCULAR HEMOGLOBIN 28.5 pg (27.0-31.0); MEAN CORPUSCULAR HGB CONC 30.7 g/dL (33.0-37.0); MEAN PLATELET VOLUME 8.5 fl (7.2-11.7); MONO # 0.7 K/uL (0.0-0.8); MONO % 4.6 % (0.0-10.0); NEUT # 13.6 K/uL (1.8-7.0); NEUT % 90.1 % (50.0-75.0); NRBC % 0.1 % (0.0-0.0); PLATELET COUNT 276 K/uL (130-400); RBC 4.32 Mil/uL (3.80-5.20); RED CELL DISTRIBUTION WIDTH 14.9 % (11.5-14.5); WHITE BLOOD COUNT 15.2 K/uL (4.8-10.8)
[2018-09-30 07:25] LABS: LDL CHOLESTEROL 146 mg/dL (0-129)
[2018-09-30] MEDS: Albuterol-Ipratrop 3 mg / 0.5 (3 ml) UD INH SCH ×4 (07:26→19:08)
[2018-09-30 07:32] LABS: ALB/GLOB RATIO 1.3 (1.0-2.1); ALBUMIN 3.9 g/dL (3.5-5.0); ALT/SGPT 48 U/L (9-52); AST/SGOT 24 U/L (14-36); BLOOD UREA NITROGEN 21 mg/dl (7-17); CALCIUM 9.4 mg/dL (8.4-10.2); GFR NON-AFRICAN AMERICAN > 60; HDL CHOLESTEROL 88 MG/DL (30-70)
[2018-09-30] MEDS: MethylPREDNISolone 40 mg Vial IVP SCH ×2 (08:45→21:13)
[2018-09-30] MEDS: Enoxaparin 40 mg Syringe SC SCH (08:46)
[2018-09-30] MEDS: Pantoprazole 40 mg EC Tab PO SCH (08:46)
[2018-09-30] MEDS: acetaZOLAMIDE 500 mg SR Cap PO SCH (08:47)
[2018-09-30] MEDS: Oxycodone/Acetaminophen 5/325 mg Tab PO PRN ×2 (10:50→18:07)
[2018-09-30 11:15] LABS: LYMPHOCYTE 8 % (20-50); MONOCYTE 4 % (0-10); NEUTROPHIL 88 % (42-75); PLATELET ESTIMATE NORMAL (NORMAL); TOTAL CELLS COUNTED 100
[2018-09-30 11:16] LABS: ANISOCYTOSIS SLIGHT; PLATELET CLUMPS PRESENT
--- NOTE | 2018-09-30 11:45 | CP.PCM.PN ---
Subjective - Date & Time of Evaluation Date of Evaluation: 09/30/18 Time of Evaluation: 10:20 - Subjective Subjective: 58 y/o F was sevaluated and examined by bedside. Pt is sitting on bed, receiving nebulization treatment, reports feeling OK. Pt afebrile, tolerating PO with NO acute events overnight. On bloodwork, WBC increased to 15, pt is on steroid therapy. Objective - Vital Signs/Intake and Output Vital Signs (last 24 hours): Temp Pulse Resp BP Pulse Ox 97.2 F L 110 H 20 128/78 94 L 09/30/18 08:41 09/30/18 08:41 09/30/18 08:41 09/30/18 08:41 09/30/18 08:41 - Medications Medications: Current Medications Acetaminophen (Tylenol 325mg Tab) 650 mg PO Q6 PRN PRN Reason: Pain, Mild (1-3) Acetazolamide (Diamox Sequels 500 Mg Sr Cap) 500 mg PO DAILY [facility] Last Admin: 09/30/18 08:47 Dose: 500 mg Albuterol Sulfate (Albuterol 0.083% Inhal Caridad (2.5 Mg/3 Ml) Ud) 2.5 mg INH RQ4 PRN PRN Reason: Shortness of Breath Last Admin: 09/30/18 09:25 Dose: 2.5 mg Albuterol/Ipratropium (Duoneb 3 Mg/0.5 Mg (3 Ml) Ud) 3 ml INH RQID [facility] Last Admin: 09/30/18 11:24 Dose: 3 ml Alprazolam (Xanax) 0.25 mg PO Q8 PRN PRN Reason: Anxiety Stop: 10/06/18 09:16 Last Admin: 09/30/18 08:39 Dose: 0.25 mg Enoxaparin Sodium (Lovenox) 40 mg SC DAILY [facility]; Protocol Last Admin: 09/30/18 08:46 Dose: 40 mg Fluticasone Propionate (Flonase) 1 spr KIRBY BID PRN PRN Reason: Nasal congestion Last Admin: 09/30/18 08:55 Dose: 1 spr Home Med (Cetirizine Hcl [Wal-Zyr]) 5 mg PO Q12 [facility] Last Admin: 09/30/18 10:11 Dose: 5 mg Methylprednisolone (Solu-Medrol) 40 mg IVP Q12 [facility] Last Admin: 09/30/18 08:45 Dose: 40 mg Oxycodone/Acetaminophen (Percocet 5/325 Mg Tab) 1 tab PO Q6 PRN PRN Reason: Pain, severe (8-10) Stop: 10/01/18 09:03 Last Admin: 09/30/18 10:50 Dose: 1 tab Pantoprazole Sodium (Protonix Ec Tab) 40 mg PO DAILY [facility] Last Admin: 09/30/18 08:46 Dose: 40 mg Promethazine HCl/Dextromethorphan (Phenergan Dm Syrup) 5 ml PO Q8 PRN PRN Reason: Cough Last Admin: 09/30/18 03:26 Dose: 5 ml Roflumilast (Daliresp) 250 mcg PO HS [facility] Last Admin: 09/28/18 00:24 Dose: 250 mcg Sertraline HCl (Zoloft) 25 mg PO HS [facility] Last Admin: 09/29/18 21:00 Dose: Not Given - Labs Labs: 09/30/18 05:35 09/30/18 05:35 - Constitutional Appears: Chronically Ill - Head Exam Head Exam: ATRAUMATIC, NORMAL INSPECTION - Eye Exam Eye Exam: EOMI, PERRL - ENT Exam ENT Exam: Mucous Membranes Moist - Neck Exam Neck Exam: Full ROM, Normal Inspection - Respiratory Exam Respiratory Exam: Decreased Breath Sounds (bilaterally, R more than L. ), NORMAL BREATHING PATTERN - Cardiovascular Exam Cardiovascular Exam: Tachycardia, REGULAR RHYTHM, +S1, +S2 - GI/Abdominal Exam GI & Abdominal Exam: Soft, Normal Bowel Sounds. absent: Guarding, Rigid, Tenderness - Extremities Exam Extremities Exam: absent: Calf Tenderness, Pedal Edema - Neurological Exam Neurological Exam: Alert, Awake, Oriented x3 Assessment and Plan - Assessment and Plan (Free Text) Assessment: 58 y/o F with a PMH of significant for advanced stage COPD/Lymphangioleiomyomatosis, obesity, Chronic pain syndrome, anxiety admitted for acute on chronic hypercapneic respiratory failure. --Chest CT: Extensive centrilobular pulmonary emphysema. Scattered bullae in right lung. --CXR: No acute pulmonary disease, COPD --EKG: Sinus tachycardia with PACs PLAN: >Advanced COPD/Lymphangioleiomyomatosis/Acute on Chronic hypercapnic respiratory failure --Afebrile, tachycardic most pssibly due to albuterol therapy. --On 2.5 L NC --BiPAP overnight and PRN daytime. --Pulmonary on board, Dr. Interiano. --Continue managemetn as ordered. --Daliresp on hold --Monitor respiratory status >Chronic Pain syndrome --Satble --On Percocet PRN and Toradol 30 mg IVP Q6 PRN --C/w Physical therapy --PT recommendations: BRANDEN upon DC. >Anxiety - Decrease Xanax from 0.5 to 0.25 Q8hr PRN - Continue Sertraline 25 mg po qhs >Prophylaxis -DVT: Lovenox 40 mg sc daily -GI: Protonix 40 mg PO shalini Case discussed with Dr Enio Reynolds PGY-2
[2018-09-30 23:11] LABS: SQUAMOUS EPITHIAL 3 /hpf (0-5); URINE BACTERIA RARE (<OCC); URINE BILIRUBIN NEGATIVE (NEGATIVE); URINE BLOOD SMALL (NEGATIVE); URINE CLARITY CLEAR (Clear); URINE COLOR YELLOW (YELLOW); URINE GLUCOSE (UA) NEG (NEGATIVE); URINE LEUKOCYTE ESTERASE NEG Leu/uL (Negative); URINE PROTEIN NEGATIVE (NEGATIVE); URINE UROBILINOGEN 0.2-1.0 mg/dL (0.2-1.0)
[2018-10-01] MEDS: Albuterol 0.083% Inhal Sol (2.5 mg/3 mL) UD INH PRN (03:31)
[2018-10-01] MEDS: Oxycodone/Acetaminophen 5/325 mg Tab PO PRN ×2 (06:28→15:04)
[2018-10-01] MEDS: Albuterol-Ipratrop 3 mg / 0.5 (3 ml) UD INH SCH ×4 (07:26→19:02)
[2018-10-01 07:48] LABS: HEMOGLOBIN 12.4 g/dL (12.0-16.0); MEAN CELL VOLUME 89.3 fl (81.0-99.0); MEAN CORPUSCULAR HEMOGLOBIN 28.2 pg (27.0-31.0); MEAN CORPUSCULAR HGB CONC 31.6 g/dL (33.0-37.0); RBC 4.41 Mil/uL (3.80-5.20); RED CELL DISTRIBUTION WIDTH 14.4 % (11.5-14.5); WHITE BLOOD COUNT 11.7 K/uL (4.8-10.8)
[2018-10-01 08:28] LABS: BLOOD UREA NITROGEN 21 mg/dl (7-17); CALCIUM 9.2 mg/dL (8.4-10.2); GFR NON-AFRICAN AMERICAN > 60
[2018-10-01 08:30] LABS: HEPATITIS B SURFACE AG Negative (NEGATIVE)
[2018-10-01 08:35] LABS: HEPATITIS A IGM NEGATIVE (NEGATIVE); HEPATITIS B CORE AB NEGATIVE (NEGATIVE)
[2018-10-01 08:47] LABS: HEPATITIS C ANTIBODY NEGATIVE (NEGATIVE)
[2018-10-01] MEDS: Enoxaparin 40 mg Syringe SC SCH (09:09)
[2018-10-01] MEDS: Promethazine DM 6.25 mg-15 mg/5 ml Syrup PO PRN ×2 (09:09→20:23)
[2018-10-01] MEDS: Pantoprazole 40 mg EC Tab PO SCH (09:10)
[2018-10-01] MEDS: acetaZOLAMIDE 500 mg SR Cap PO SCH (09:10)
--- NOTE | 2018-10-01 10:31 | CP.PCM.PN ---
Subjective - Date & Time of Evaluation Date of Evaluation: 10/01/18 Time of Evaluation: 09:35 - Subjective Subjective: Patient seen and evaluated at bedside in AM. Patient currently on BiPAP sitting in bed. Patient w/o respiratory distress upon taking off BiPAP. Maintained O2 sat >90% on 2.5L NC. Pt continues to be dyspneic with activity and walking. Que erating Physical Therapy well. Patient continues to have dry non productive cough. Tolerating diet well PO. Denies any fever, chills, nausea, vomiting, diarrhea, CP, headache or dizziness. Objective - Vital Signs/Intake and Output Vital Signs (last 24 hours): Temp Pulse Resp BP Pulse Ox 97.7 F 97 H 21 130/78 95 10/01/18 07:56 10/01/18 07:56 10/01/18 07:56 10/01/18 07:56 10/01/18 07:56 - Medications Medications: Current Medications Acetaminophen (Tylenol 325mg Tab) 650 mg PO Q6 PRN PRN Reason: Pain, Mild (1-3) Acetazolamide (Diamox Sequels 500 Mg Sr Cap) 500 mg PO DAILY [facility] Last Admin: 10/01/18 09:10 Dose: 500 mg Albuterol Sulfate (Albuterol 0.083% Inhal Caridad (2.5 Mg/3 Ml) Ud) 2.5 mg INH RQ4 PRN PRN Reason: Shortness of Breath Last Admin: 10/01/18 03:31 Dose: 2.5 mg Albuterol/Ipratropium (Duoneb 3 Mg/0.5 Mg (3 Ml) Ud) 3 ml INH RQID [facility]IS[facility] Last Admin: 10/01/18 07:26 Dose: 3 ml Alprazolam (Xanax) 0.25 mg PO Q8 PRN PRN Reason: Anxiety Stop: 10/06/18 09:16 Last Admin: 10/01/18 07:14 Dose: 0.25 mg Enoxaparin Sodium (Lovenox) 40 mg SC DAILY [facility]; Protocol Last Admin: 10/01/18 09:09 Dose: 40 mg Fluticasone Propionate (Flonase) 1 spr KIRBY BID PRN PRN Reason: Nasal congestion Last Admin: 09/30/18 08:55 Dose: 1 spr Home Med (Cetirizine Hcl [Wal-Zyr]) 5 mg PO Q12 [facility] Last Admin: 10/01/18 09:09 Dose: 5 mg Methylprednisolone (Solu-Medrol) 40 mg IVP Q12 [facility] Last Admin: 09/30/18 21:13 Dose: 40 mg Pantoprazole Sodium (Protonix Ec Tab) 40 mg PO DAILY [facility] Last Admin: 10/01/18 09:10 Dose: 40 mg Promethazine HCl/Dextromethorphan (Phenergan Dm Syrup) 5 ml PO Q8 PRN PRN Reason: Cough Last Admin: 10/01/18 09:09 Dose: 5 ml Roflumilast (Daliresp) 250 mcg PO HS [facility] Last Admin: 09/28/18 00:24 Dose: 250 mcg - Labs Labs: 10/01/18 05:30 10/01/18 05:30 - Constitutional Appears: Non-toxic, No Acute Distress - Head Exam Head Exam: ATRAUMATIC, NORMAL INSPECTION, NORMOCEPHALIC - Eye Exam Eye Exam: EOMI, Normal appearance - ENT Exam ENT Exam: Mucous Membranes Moist - Neck Exam Neck Exam: Full ROM - Respiratory Exam Respiratory Exam: Decreased Breath Sounds, Rales. absent: Rhonchi, Wheezes, Respiratory Distress Additional comments: Early inspiratory dry rales - Cardiovascular Exam Cardiovascular Exam: REGULAR RHYTHM, +S1, +S2. absent: Murmur - GI/Abdominal Exam GI & Abdominal Exam: Soft, Normal Bowel Sounds. absent: Distended, Tenderness - Extremities Exam Extremities Exam: Pedal Edema. absent: Calf Tenderness, Tenderness Additional comments: Trace pitting B/L LE edema - Neurological Exam Neurological Exam: Alert, Awake, Oriented x3 - Psychiatric Exam Psychiatric exam: Normal Affect, Normal Mood - Skin Skin Exam: Dry, Intact, Normal Color, Warm Assessment and Plan - Assessment and Plan (Free Text) Assessment: 58 y/o F with a PMH of significant for advanced stage COPD/Lymphangioleiomyomatosis, obesity, Chronic pain syndrome, anxiety admitted for acute on chronic hypercapneic respiratory failure. Plan for TCU for rehab. -Chest CT: Extensive centrilobular pulmonary emphysema. Scattered bullae in right lung. -CXR: No acute pulmonary disease, COPD -EKG: Sinus tachycardia with PACs Plan: Advanced COPD/Lymphangioleiomyomatosis/Acute on Chronic hypercapnic respiratory failure -Afebrile, tachycardic most pssibly due to albuterol therapy. -On 2.5 L NC -BiPAP(IPAP 10/EPAP 5/Fio2 30%/14 RR) overnight and PRN daytime. -Pulmonary on board, Dr. Interiano. -Continue management as ordered. -Daliresp on hold -Monitor respiratory status -Plan for TCU tomorrow for rehab. Chronic Pain syndrome -Stable -On Percocet PRN and Toradol 30 mg IVP Q6 PRN -C/w Physical therapy -PT recommendations: BRANDEN upon DC. Anxiety - Continue 0.25 Q8hr PRN - D/C Sertraline 25 mg po qhs Prophylaxis -DVT: Lovenox 40 mg sc daily -GI: Protonix 40 mg PO shalini Case discussed with Dr. Enio Ernst, PGY1
[2018-10-01] MEDS: MethylPREDNISolone 40 mg Vial IVP SCH ×2 (13:14→20:23)
[2018-10-01] MEDS ORDERED: Potassium Chloride 20 mEq ER Tab PO ONE (16:41)
[2018-10-02] MEDS: Albuterol 0.083% Inhal Sol (2.5 mg/3 mL) UD INH PRN ×2 (01:18→17:58)
[2018-10-02] MEDS: Oxycodone/Acetaminophen 5/325 mg Tab PO PRN ×3 (03:51→19:34)
[2018-10-02 06:11] LABS: BASO % 0.1 % (0.0-2.0); HEMOGLOBIN 12.2 g/dL (12.0-16.0); LYMPH # 0.8 K/uL (1.0-4.3); LYMPH % 6.5 % (20.0-40.0); MEAN CELL VOLUME 89.9 fl (81.0-99.0); MEAN CORPUSCULAR HEMOGLOBIN 27.9 pg (27.0-31.0); MEAN CORPUSCULAR HGB CONC 31.1 g/dL (33.0-37.0); MEAN PLATELET VOLUME 7.9 fl (7.2-11.7); MONO # 1.2 K/uL (0.0-0.8); NEUT # 9.9 K/uL (1.8-7.0); NEUT % 83.4 % (50.0-75.0); RBC 4.35 Mil/uL (3.80-5.20); RED CELL DISTRIBUTION WIDTH 14.5 % (11.5-14.5); WHITE BLOOD COUNT 11.9 K/uL (4.8-10.8)
[2018-10-02 06:27] LABS: BLOOD UREA NITROGEN 24 mg/dl (7-17); GFR NON-AFRICAN AMERICAN > 60
[2018-10-02] MEDS: Albuterol-Ipratrop 3 mg / 0.5 (3 ml) UD INH SCH ×4 (07:17→19:41)
[2018-10-02 08:12] VITALS: RESP 20
[2018-10-02] MEDS: acetaZOLAMIDE 500 mg SR Cap PO SCH (08:49)
[2018-10-02] MEDS: Enoxaparin 40 mg Syringe SC SCH (08:51)
[2018-10-02] MEDS: Pantoprazole 40 mg EC Tab PO SCH (08:51)
--- NOTE | 2018-10-02 10:41 | CP.PCM.PN ---
Subjective - Date & Time of Evaluation Date of Evaluation: 10/02/18 Time of Evaluation: 10:40 - Subjective Subjective: Seen while doing PT this morning. Able to ambulate short distances with assist, but GOODWIN++. Desaturates rapidly with activity. Short inspiratory phase w/o wheezes. Dry rales present in the lower lobes posteriorly. No bronchial breath sounds or egophony. Will use simple face mask for O2 delivery and BiPAP as needed. Will reduce steroid therapy and begin sirolimus. Will request non-formulary exception. Objective - Vital Signs/Intake and Output Vital Signs (last 24 hours): Temp Pulse Resp BP Pulse Ox 97.5 F L 82 20 118/77 100 10/02/18 08:11 10/02/18 08:11 10/02/18 08:11 10/02/18 08:11 10/02/18 08:11 - Medications Medications: Current Medications Acetaminophen (Tylenol 325mg Tab) 650 mg PO Q6 PRN PRN Reason: Pain, Mild (1-3) Acetazolamide (Diamox Sequels 500 Mg Sr Cap) 500 mg PO DAILY [facility] Last Admin: 10/02/18 08:49 Dose: 500 mg Albuterol Sulfate (Albuterol 0.083% Inhal Caridad (2.5 Mg/3 Ml) Ud) 2.5 mg INH RQ4 PRN PRN Reason: Shortness of Breath Last Admin: 10/02/18 01:18 Dose: 2.5 mg Albuterol/Ipratropium (Duoneb 3 Mg/0.5 Mg (3 Ml) Ud) 3 ml INH RQID [facility] Last Admin: 10/02/18 07:17 Dose: 3 ml Alprazolam (Xanax) 0.25 mg PO Q8 PRN PRN Reason: Anxiety Stop: 10/06/18 09:16 Last Admin: 10/02/18 10:39 Dose: 0.25 mg Enoxaparin Sodium (Lovenox) 40 mg SC DAILY [facility]; Protocol Last Admin: 10/02/18 08:51 Dose: 40 mg Fluticasone Propionate (Flonase) 1 spr KIRBY BID PRN PRN Reason: Nasal congestion Last Admin: 09/30/18 08:55 Dose: 1 spr Home Med (Cetirizine Hcl [Wal-Zyr]) 5 mg PO Q12 [facility] Last Admin: 10/02/18 08:49 Dose: 5 mg Methylprednisolone (Solu-Medrol) 40 mg IVP Q12 [facility] Last Admin: 10/01/18 20:23 Dose: 40 mg Oxycodone/Acetaminophen (Percocet 5/325 Mg Tab) 1 tab PO Q6 PRN PRN Reason: Pain, severe (8-10) Stop: 10/04/18 13:54 Last Admin: 10/02/18 03:51 Dose: 1 tab Pantoprazole Sodium (Protonix Ec Tab) 40 mg PO DAILY [facility] Last Admin: 10/02/18 08:51 Dose: 40 mg Promethazine HCl/Dextromethorphan (Phenergan Dm Syrup) 5 ml PO Q8 PRN PRN Reason: Cough Last Admin: 10/01/18 20:23 Dose: 5 ml Roflumilast (Daliresp) 250 mcg PO HS [facility] Last Admin: 09/28/18 00:24 Dose: 250 mcg - Labs Labs: 10/02/18 05:50 10/02/18 05:50 Assessment and Plan (1) Lymphangioleiomyomatosis Status: Chronic (2) Acute on chronic respiratory failure with hypoxia and hypercapnia Status: Acute
[2018-10-02] MEDS: MethylPREDNISolone 40 mg Vial IVP SCH ×2 (12:01→20:43)
[2018-10-02] MEDS: Promethazine DM 6.25 mg-15 mg/5 ml Syrup PO PRN (12:23)
--- NOTE | 2018-10-02 13:29 | CP.PCM.DIS ---
Provider - Provider Date of Admission: 09/28/18 14:06 Attending physician: Colleen Youssef DO Consults: 09/27/18 21:12 Pulmonology Consult Stat Comment: Consulting Provider: Randy Interiano Consulting Physician: Randy Interiano Reason for Consult: shortness of breath, h/o JIMENEZ Time Spent in preparation of Discharge (in minutes): 35 Diagnosis - Discharge Diagnosis (1) Acute on chronic respiratory failure with hypoxia and hypercapnia Status: Acute Priority: High (2) Lymphangioleiomyomatosis Status: Chronic Priority: High (3) COPD exacerbation Status: Acute Priority: High (4) Weakness generalized Status: Acute (5) Renal cyst Status: Chronic Hospital Course - Lab Results Lab Results: Micro Results 09/27/18 16:30 Blood-Venous Blood Culture - Preliminary NO GROWTH AFTER 4 DAYS 09/27/18 16:00 Blood-Venous Blood Culture - Preliminary NO GROWTH AFTER 4 DAYS Most Recent Lab Values WBC 11.9 K/uL (4.8-10.8) H 10/02/18 05:50 RBC 4.35 Mil/uL (3.80-5.20) 10/02/18 05:50 Hgb 12.2 g/dL (12.0-16.0) 10/02/18 05:50 Hct 39.1 % (34.0-47.0) 10/02/18 05:50 MCV 89.9 fl (81.0-99.0) 10/02/18 05:50 MCH 27.9 pg (27.0-31.0) 10/02/18 05:50 MCHC 31.1 g/dL (33.0-37.0) L 10/02/18 05:50 RDW 14.5 % (11.5-14.5) 10/02/18 05:50 Plt Count 329 K/uL (130-400) 10/02/18 05:50 MPV 7.9 fl (7.2-11.7) 10/02/18 05:50 Neut % (Auto) 83.4 % (50.0-75.0) H 10/02/18 05:50 Lymph % (Auto) 6.5 % (20.0-40.0) L 10/02/18 05:50 Lyman % (Auto) 10.0 % (0.0-10.0) 10/02/18 05:50 Eos % (Auto) 0.0 % (0.0-4.0) 10/02/18 05:50 Baso % (Auto) 0.1 % (0.0-2.0) 10/02/18 05:50 Neut # (Auto) 9.9 K/uL (1.8-7.0) H 10/02/18 05:50 Lymph # (Auto) 0.8 K/uL (1.0-4.3) L 10/02/18 05:50 Lyman # (Auto) 1.2 K/uL (0.0-0.8) H 10/02/18 05:50 Eos # (Auto) 0.0 K/uL (0.0-0.7) 10/02/18 05:50 Baso # (Auto) 0.0 K/uL (0.0-0.2) 10/02/18 05:50 Neutrophils % (Manual) 88 % (42-75) H 09/30/18 05:35 Lymphocytes % (Manual) 8 % (20-50) L 09/30/18 05:35 Monocytes % (Manual) 4 % (0-10) 09/30/18 05:35 Platelet Estimate Normal (NORMAL) 09/30/18 05:35 Plt Clumps, EDTA Present 09/30/18 05:35 RBC Morphology Normal (NORMAL) 09/28/18 06:00 Anisocytosis (manual) Slight 09/30/18 05:35 pCO2 65 mm/Hg (35-45) H 09/27/18 16:38 pO2 110 mm/Hg (80-100) H 09/27/18 16:38 HCO3 29.8 mmol/L (21-28) H 09/27/18 16:38 ABG pH 7.33 (7.35-7.45) L 09/27/18 16:38 ABG Total CO2 36.3 mmol/L (22-28) H 09/27/18 16:38 ABG O2 Saturation 100.5 % (95-98) H 09/27/18 16:38 ABG Base Excess 6.2 mmol/L (-2.0-3.0) H 09/27/18 16:38 Contreras Test Yes 09/27/18 16:38 ABG Potassium 3.4 mmol/L (3.6-5.2) L 09/27/18 16:38 A-a O2 Difference 37.0 mm/Hg 09/27/18 16:38 Sodium 139.0 mmol/L (132-148) 09/27/18 16:38 Chloride 106.0 mmol/L (98-107) 09/27/18 16:38 Glucose 108 mg/dL (65-105) H 09/27/18 16:38 Lactate 0.6 mmol/L (0.7-2.1) L 09/27/18 16:38 FiO2 32.0 % 09/27/18 16:38 Sodium 144 mmol/l (132-148) 10/02/18 05:50 Potassium 4.3 MMOL/L (3.6-5.0) 10/02/18 05:50 Chloride 101 mmol/L (98-107) 10/02/18 05:50 Carbon Dioxide 38 mmol/L (22-30) H 10/02/18 05:50 Anion Gap 9 (10-20) L 10/02/18 05:50 BUN 24 mg/dl (7-17) H 10/02/18 05:50 Creatinine 0.7 mg/dl (0.7-1.2) 10/02/18 05:50 Est GFR ( Amer) > 60 10/02/18 05:50 Est GFR (Non-Af Amer) > 60 10/02/18 05:50 Random Glucose 122 mg/dL (65-105) H 10/02/18 05:50 Calcium 9.0 mg/dL (8.4-10.2) 10/02/18 05:50 Total Bilirubin 0.2 mg/dl (0.2-1.3) 09/30/18 05:35 AST 24 U/L (14-36) 09/30/18 05:35 ALT 48 U/L (9-52) 09/30/18 05:35 Alkaline Phosphatase 63 U/L (38-126) 09/30/18 05:35 Troponin I < 0.0120 ng/mL (0.00-0.120) 09/27/18 16:14 NT-Pro-B Natriuret Pep 26.7 pg/ml (0-900) 09/27/18 17:13 Total Protein 6.8 G/DL (6.3-8.2) 09/30/18 05:35 Albumin 3.9 g/dL (3.5-5.0) 09/30/18 05:35 Globulin 2.9 gm/dL (2.2-3.9) 09/30/18 05:35 Albumin/Globulin Ratio 1.3 (1.0-2.1) 09/30/18 05:35 Triglycerides 68 mg/DL (0-149) 09/30/18 05:35 Cholesterol 251 mg/dL (0-199) H 09/30/18 05:35 LDL Cholesterol Direct 146 mg/dL (0-129) H 09/30/18 05:35 HDL Cholesterol 88 MG/DL (30-70) H 09/30/18 05:35 Procalcitonin < 0.05 NG/ML (0.19-0.49) L 09/28/18 05:30 Arterial Blood Potassium 3.4 mmol/L (3.6-5.2) L 09/27/18 16:38 Urine Color Yellow (YELLOW) 09/30/18 22:00 Urine Clarity Clear (Clear) 09/30/18 22:00 Urine pH 6.0 (5.0-8.0) 09/30/18 22:00 Ur Specific Lennox 1.025 (1.003-1.030) 09/30/18 22:00 Urine Protein Negative mg/dL (NEGATIVE) 09/30/18 22:00 Urine Glucose (UA) Neg mg/dL (NEGATIVE) 09/30/18 22:00 Urine Ketones Negative mg/dL (NEGATIVE) 09/30/18 22:00 Urine Blood Small (NEGATIVE) 09/30/18 22:00 Urine Nitrate Negative (NEGATIVE) 09/30/18 22:00 Urine Bilirubin Negative (NEGATIVE) 09/30/18 22:00 Urine Urobilinogen 0.2-1.0 mg/dL (0.2-1.0) 09/30/18 22:00 Ur Leukocyte Esterase Neg Darwin/uL (Negative) 09/30/18 22:00 Urine RBC (Auto) 4 /hpf (0-3) H 09/30/18 22:00 Urine Microscopic WBC 4 /hpf (0-5) 09/30/18 22:00 Ur Squamous Epith Cells 3 /hpf (0-5) 12/22/18 22:00 Urine Bacteria Rare (<OCC) 09/30/18 22:00 Hepatitis A IgM Ab Negative (NEGATIVE) 09/30/18 09:30 Hep Bs Antigen Negative (NEGATIVE) 09/30/18 09:30 Hep B Core IgM Ab Negative (NEGATIVE) 09/30/18 09:30 Hepatitis C Antibody Negative (NEGATIVE) 09/30/18 09:30 Influenza Typ A,B (EIA) Negative for flu a/b (NEGATIVE) 09/27/18 16:14 - Hospital Course Hospital Course: 58 y/o, F with a PMHx of COPD, JIMENEZ (lymphangioleiomyomatosis), endometriosis, depression and chronic fatigue syndrome, presents to the ED via EMS complaining of shortness of breath and weakness for the past 2 days. Patient tried home oxygen and BiPAP but dyspnea and weakness did not improve. Patient evaluated and diagnosed with acute on chronic respiratory failure. Cereal Chemist Dr. Interiano consulted. CBC, CMP, Lipid panel, Hep B, Influenza, UA done. CXR showed No acute infiltrate. CT chest shows Extensive centrilobular pulmonary emphysema w/o pulmonary infiltrate or mass and 5 cm exophytic cortical cyst upper pole right kidney. Patient resumed on home medications, BiPAP and Nasal cannula. Physical therapy consulted who recommended rehab for patient. Patient tolerated PT well. Patient's dyspnea at rest improved but continues to get SOB with ambulation. Patient will be discharged and transferred to TCU for Rehab. BiPAP settings: IPAP 10 EPAP 5 FIO2 30 % Medications - Hold Daliresp - Start Sirolimus - Reduce steroid dose - Continue other medications. Discharge Exam - Head Exam Head Exam: ATRAUMATIC, NORMAL INSPECTION, NORMOCEPHALIC - Eye Exam Eye Exam: EOMI, Normal appearance - ENT Exam ENT Exam: Mucous Membranes Moist - Respiratory Exam Respiratory Exam: Decreased Breath Sounds, Rhonchi - Cardiovascular Exam Cardiovascular Exam: REGULAR RHYTHM, RRR, +S1, +S2. absent: Tachycardia - GI/Abdominal Exam GI & Abdominal Exam: Normal Bowel Sounds, Soft. absent: Tenderness - Extremities Exam Extremities exam: pedal pulses present - Neurological Exam Neurological exam: Alert, Altered, Oriented x3 - Psychiatric Exam Psychiatric exam: Normal Affect, Normal Mood - Skin Skin Exam: Dry, Intact, Normal Color, Warm Discharge Plan - Follow Up Plan Condition: FAIR Disposition: REHAB FACILITY/REHAB UNIT Instructions: Generalized Weakness (DC), Exacerbation of COPD (DC) Additional Instructions: Patient to go to TCU for Rehab Referrals: Emilie Montoya MD [Family Provider] - Randy Interiano MD [Staff Provider] - Haleigh Cardona MD [Staff Provider] -
[2018-10-02 16:27] VITALS: BP 139/72; PULSE 107; TEMP 97.6; O2SAT 97
--- NOTE | 2018-10-04 10:03 | PQF ---
PROVIDER RESPONSE TEXT: Condition ruled out. REVIEWER QUERY TEXT: Rule Out Condition Clarification -Patient has condition -Condition was ruled out Please provide corresponding diagnosis for patient's clinical picture and associated treatment -Patient had condition which is now resolved -Other (please specify) -Clinically unable to determine -Unknown The patient's Clinical Indicators include: Patient with advanced COPD/Lymphangioleiomyomatosis presents with fatigue and SOB. Found to have acut e on chronic respiratory failure with hypoxia and hypercapnia. CT Chest: Extensive centrilobular pulmonary emphysema. No pulmonary infiltrate or mass. Scattered bu llae in right lung. Rx: Diamox, Albuterol, Duonebs, Solumedrol, Phenergan DM, Zithromax x 1 dose Query created by: Whitney Plummre on 09/29/2018 1:20 PM Electronically signed by: Colleen Youssef MD 10/04/2018 10:00 AM
== END 2018-10-02 21:00 | DRG 190 ==
LOC: H.ER 15:16 → H.ERHOLD 20:26 → H.MEDSURG1 22:40 → OBSVTOIN 09-28 14:06
PROVIDERS: ADMIT Student in an Organized Health Care Education/Training Program; ATTEND Student in an Organized Health Care Education/Training Program
PROC: 5A09457 Assistance with Respiratory Ventilation, 24-96 Consecutive Hours, Continuous Positive Airway Pressure (ICD-10-PCS; principal; 2018-09-28)
PROC: 3E0F73Z Introduction of Anti-inflammatory into Respiratory Tract, Via Natural or Artificial Opening (ICD-10-PCS; 2018-09-28)
PROC: 3E0F7GC Introduction of Other Therapeutic Substance into Respiratory Tract, Via Natural or Artificial Opening (ICD-10-PCS; 2018-09-28)
DX: J44.1 Chronic obstructive pulmonary disease with (acute) exacerbation (principal); J84.81 Lymphangioleiomyomatosis; J96.21 Acute and chronic respiratory failure with hypoxia; J96.22 Acute and chronic respiratory failure with hypercapnia; E87.2 Acidosis; G89.4 Chronic pain syndrome; Z99.81 Dependence on supplemental oxygen; E66.9 Obesity, unspecified; F32.9 Major depressive disorder, single episode, unspecified; F41.9 Anxiety disorder, unspecified; N28.1 Cyst of kidney, acquired; Z87.01 Personal history of pneumonia (recurrent); Z87.891 Personal history of nicotine dependence; Z68.34 Body mass index [BMI] 34.0-34.9, adult; Z88.2 Allergy status to sulfonamides

== ENCOUNTER 2018-10-02 14:52 | Inpatient (IN) | payer OTHER, MEDICAID ==
[2018-10-02 21:10] VITALS: BMI 34.7
[2018-10-03] MEDS: Albuterol 0.083% Inhal Sol (2.5 mg/3 mL) UD INH PRN ×3 (00:36→23:45)
[2018-10-03] MEDS: Albuterol-Ipratrop 3 mg / 0.5 (3 ml) UD INH SCH ×4 (07:53→19:28)
[2018-10-03] MEDS: Pantoprazole 40 mg EC Tab PO SCH (08:45)
[2018-10-03] MEDS: Enoxaparin 40 mg Syringe SC SCH (08:45)
[2018-10-03] MEDS: CETIRIZINE HCL 5 MG PO SCH ×2 (08:45→21:57)
[2018-10-03] MEDS: MethylPREDNISolone 40 mg Vial IVP SCH ×4 (08:46→21:57)
--- NOTE | 2018-10-03 08:49 | CP.PCM.HP ---
<Modesto Ernst - Last Filed: 10/03/18 12:34> History of Present Illness - History of Present Illness History of Present Illness: 58 y/o, F with a PMHx of COPD, JIMENEZ (lymphangioleiomyomatosis), endometriosis, depression and chronic fatigue syndrome admitted to TCU for weakness and shortness of breath with minimal exertion. Patient was admitted to [facility] for acute on chronic hypercapneic respiratory failure which improved with home medications, solumedrol, BiPAP, O2 via NC and facemask. CT chest, CXR done showed chronic emphysematous changes. Physical Therapy and [employer] consulted who recommended rehab for weakness. Patient seen and examined today in TCU at bedside. Unable to get IV line access. patient resumed on all other medications except for Solumedrol which will be resumed after IV access. Patient reports dyspnea on minimal exertion. Patient did physical therapy today but repo rts very weak after PT. Denies any headache, dizziness, CP, nausea, vomiting, diarrhea. Tolerating diet well PO. PMD: Dr Cardona [employer]er: Dr. Interiano. PMH: JIMENEZ (lymphangioleiomyomatosis), COPD, endometriosis, anxiety, and depression Medications: see med list Allergies: Sulfa drugs result in generalized rash PSH: Video-assisted thoracoscopy and lung biopsy because of recurrent spontaneous pneumothorax, D&C for uterine fibroids, benign breast cyst removal Fam: mother age 60 from breast cancer, father age 803 from kidney problem, brother has DM2 SOC: quit smoking 2 years ago, smoked 1 pack/day for about 25 years, denies alcohol and drugs ROS: 12 points assessed and negative unless otherwise reported in HPI Present on Admission - Present on Admission Any Indicators Present on Admission: No History of DVT/PE: No History of Uncontrolled Diabetes: No Urinary Catheter: No Decubitus Ulcer Present: No Review of Systems - Constitutional Constitutional: Weakness. absent: Fever - EENT Eyes: absent: Change in Vision Nose/Mouth/Throat: absent: Nasal Discharge - Cardiovascular Cardiovascular: Dyspnea, Dyspnea on Exertion. absent: Chest Pain, Chest Pain at Rest, Chest Pain with Activity - Respiratory Respiratory: Dyspnea on Exertion - Gastrointestinal Gastrointestinal: absent: Abdominal Pain - Genitourinary Genitourinary: absent: Change in Urinary Stream Past Patient History - Infectious Disease Hx of Infectious Diseases: None - Past Medical History & Family History Past Medical History?: Yes - Past Social History Smoking Status: Never Smoked - CARDIAC Hx Cardiac Disorders: No - PULMONARY Hx Respiratory Disorders: Yes Hx Chronic Obstructive Pulmonary Disease (COPD): Yes Hx Emphysema: Yes Other/Comment: Lymphangioleiomyomatosis, prior spontaneous pneumothorax x2 - NEUROLOGICAL Hx Neurological Disorder: No - HEENT Hx HEENT Problems: Yes Other/Comment: Uses Eyeglasses - RENAL Hx Chronic Kidney Disease: No - ENDOCRINE/METABOLIC Hx Endocrine Disorders: No - HEMATOLOGICAL/ONCOLOGICAL Hx Blood Disorders: No Hx Human Immunodeficiency Virus (HIV): No - INTEGUMENTARY Hx Dermatological Problems: No - MUSCULOSKELETAL/RHEUMATOLOGICAL Hx Musculoskeletal Disorders: Yes Hx Back Pain: Yes Hx Falls: No Other/Comment: chronic fatigue syndrome. - GASTROINTESTINAL Hx Gastrointestinal Disorders: No - GENITOURINARY/GYNECOLOGICAL Hx Genitourinary Disorders: Yes - PSYCHIATRIC Hx Psychophysiologic Disorder: Yes Hx Anxiety: Yes Hx Depression: Yes Hx Substance Use: No - SURGICAL HISTORY Hx Pulmonary Surgery: Yes (VATS lung biopsy and pleurodesis) Other/Comment: breast cyst removal (benign), D&C for uterine fibroids, chest tube x2 (spontaneous pneumothorax) with lung biopsy done on second episode. - ANESTHESIA Hx Anesthesia: Yes Hx Anesthesia Reactions: No Hx Malignant Hyperthermia: No Has any member of the family had a problem w/ anesthesia?: No Meds Allergies/Adverse Reactions: Allergies Allergy/AdvReac Type Severity Reaction Status Date / Time Sulfa (Sulfonamide Allergy RASH Verified 09/27/18 15:23 Antibiotics) Physical Exam - Constitutional Appears: No Acute Distress - Head Exam Head Exam: ATRAUMATIC, NORMOCEPHALIC - Eye Exam Eye Exam: EOMI, Normal appearance - ENT Exam ENT Exam: Mucous Membranes Moist - Neck Exam Neck exam: Positive for: Full Rom - Respiratory Exam Respiratory Exam: Decreased Breath Sounds, Prolonged Expiratory Phase, Respiratory Distress. absent: Chest Wall Tenderness, Rales, Rhonchi, Wheezes - Cardiovascular Exam Cardiovascular Exam: REGULAR RHYTHM, +S1, +S2 - GI/Abdominal Exam GI & Abdominal Exam: Normal Bowel Sounds, Soft. absent: Tenderness - Extremities Exam Extremities exam: Negative for: calf tenderness, pedal edema, tenderness - Neurological Exam Neurological exam: Alert, Oriented x3 - Psychiatric Exam Psychiatric exam: Anxious - Skin Skin Exam: Dry, Intact, Normal Color, Warm Results - Vital Signs Recent Vital Signs: Last Vital Signs Temp 98.0 F 10/02/18 22:06 Pulse 96 H 10/03/18 07:56 Resp 20 10/03/18 07:39 BP 134/82 10/03/18 07:39 Pulse Ox 100 10/03/18 07:39 Assessment & Plan - Assessment and Plan (Free Text) Assessment: 58 y/o F with a PMH of significant for advanced stage COPD/Lymphangioleiomyomatosis, obesity, Chronic pain syndrome, anxiety admitted to TCU for dyspnea on exertion and generalized weakness. Plan: Advanced COPD/Lymphangioleiomyomatosis -BiPAP(IPAP 10/EPAP 5/Fio2 30%/14 RR) overnight and PRN daytime. -Pulmonary on board, Dr. Interiano. Recommended Sirolimas and tapering solumedrol. -Continue Phenergan, flonase, duoneb and albuterol as ordered -Resume Solumedol after IV access -Continue PT Generalized weakness - Continue O2 via NC/Facemask, BiPAP at night - Continue PT Chronic Pain syndrome -Stable -Continue with Tylenol 650 Q6 PRN and percocet 5/325 for severe pain Anxiety - Continue 0.25 Q8hr PRN Prophylaxis -DVT: Lovenox 40 mg sc daily -GI: Protonix 40 mg PO shalini Case discussed with Dr. Enio Ernst, PGY1 <Hernan Jiménez - Last Filed: 10/03/18 14:49> Results - Vital Signs Recent Vital Signs: Last Vital Signs Temp 98.0 F 10/02/18 22:06 Pulse 96 H 10/03/18 07:56 Resp 20 10/03/18 07:39 BP 134/82 10/03/18 07:39 Pulse Ox 100 10/03/18 07:39 Attending/Attestation - Attestation I have personally seen and examined this patient.: Yes I have fully participated in the care of the patient.: Yes I have reviewed all pertinent clinical information: Yes Notes (Text): 10/03/18 14:48 Patient seen and examined with resident. Case discussed and agreed with assessment and plan of management.
[2018-10-03] MEDS ORDERED: methylPREDNISolone 40 MG in Sodium Chloride 0.9% 50 ML IV SCH (09:00)
[2018-10-03] MEDS: Promethazine DM 6.25 mg-15 mg/5 ml Syrup PO PRN ×2 (09:32→17:27)
[2018-10-03] MEDS: Oxycodone/Acetaminophen 5/325 mg Tab PO PRN ×2 (10:49→18:04)
[2018-10-04] MEDS: Albuterol 0.083% Inhal Sol (2.5 mg/3 mL) UD INH PRN ×2 (02:35→21:21)
[2018-10-04] MEDS: Oxycodone/Acetaminophen 5/325 mg Tab PO PRN ×3 (03:33→23:29)
[2018-10-04] MEDS: Albuterol-Ipratrop 3 mg / 0.5 (3 ml) UD INH SCH ×4 (07:17→19:31)
[2018-10-04] MEDS: MethylPREDNISolone 40 mg Vial IVP SCH ×2 (08:42→20:29)
[2018-10-04] MEDS: Pantoprazole 40 mg EC Tab PO SCH (08:42)
[2018-10-04] MEDS: CETIRIZINE HCL 5 MG PO SCH ×2 (08:42→20:40)
[2018-10-04] MEDS: Enoxaparin 40 mg Syringe SC SCH (08:42)
[2018-10-04] MEDS: Promethazine DM 6.25 mg-15 mg/5 ml Syrup PO PRN ×2 (10:47→22:50)
--- NOTE | 2018-10-04 15:38 | CP.PCM.CON ---
Past Patient History - Infectious Disease Hx of Infectious Diseases: None - Past Medical History & Family History Past Medical History?: Yes - Past Social History Smoking Status: Never Smoked - CARDIAC Hx Cardiac Disorders: No - PULMONARY Hx Respiratory Disorders: Yes Hx Chronic Obstructive Pulmonary Disease (COPD): Yes Hx Emphysema: Yes Other/Comment: Lymphangioleiomyomatosis, prior spontaneous pneumothorax x2 - NEUROLOGICAL Hx Neurological Disorder: No - HEENT Hx HEENT Problems: Yes Other/Comment: Uses Eyeglasses - RENAL Hx Chronic Kidney Disease: No - ENDOCRINE/METABOLIC Hx Endocrine Disorders: No - HEMATOLOGICAL/ONCOLOGICAL Hx Blood Disorders: No Hx Human Immunodeficiency Virus (HIV): No - INTEGUMENTARY Hx Dermatological Problems: No - MUSCULOSKELETAL/RHEUMATOLOGICAL Hx Musculoskeletal Disorders: Yes Hx Back Pain: Yes Hx Falls: No Other/Comment: chronic fatigue syndrome. - GASTROINTESTINAL Hx Gastrointestinal Disorders: No - GENITOURINARY/GYNECOLOGICAL Hx Genitourinary Disorders: Yes - PSYCHIATRIC Hx Psychophysiologic Disorder: Yes Hx Anxiety: Yes Hx Depression: Yes Hx Substance Use: No - SURGICAL HISTORY Hx Pulmonary Surgery: Yes (VATS lung biopsy and pleurodesis) Other/Comment: breast cyst removal (benign), D&C for uterine fibroids, chest tube x2 (spontaneous pneumothorax) with lung biopsy done on second episode. - ANESTHESIA Hx Anesthesia: Yes Hx Anesthesia Reactions: No Hx Malignant Hyperthermia: No Has any member of the family had a problem w/ anesthesia?: No Meds Allergies/Adverse Reactions: Allergies Allergy/AdvReac Type Severity Reaction Status Date / Time Sulfa (Sulfonamide Allergy RASH Verified 09/27/18 15:23 Antibiotics) - Medications Medications: Current Medications Acetaminophen (Tylenol 325mg Tab) 650 mg PO Q6 PRN PRN Reason: Pain, Mild (1-3) Albuterol Sulfate (Albuterol 0.083% Inhal Caridad (2.5 Mg/3 Ml) Ud) 2.5 mg INH RQ4 PRN PRN Reason: Shortness of Breath Last Admin: 10/04/18 02:35 Dose: 2.5 mg Albuterol/Ipratropium (Duoneb 3 Mg/0.5 Mg (3 Ml) Ud) 3 ml INH RQID [facility] Last Admin: 10/04/18 15:08 Dose: 3 ml Alprazolam (Xanax) 0.25 mg PO Q8 PRN PRN Reason: Anxiety Stop: 10/09/18 21:31 Last Admin: 10/04/18 08:42 Dose: 0.25 mg Enoxaparin Sodium (Lovenox) 40 mg SC DAILY [facility]; Protocol Last Admin: 10/04/18 08:42 Dose: 40 mg Fluticasone Propionate (Flonase) 1 spr KIRBY BID PRN PRN Reason: Nasal congestion Last Admin: 10/04/18 15:01 Dose: 1 spr Home Med (Cetirizine Hcl [Wal-Zyr]) 5 mg PO Q12 [facility] Last Admin: 10/04/18 08:42 Dose: 5 mg Methylprednisolone (Solu-Medrol) 40 mg IVP Q12 [facility] Last Admin: 10/04/18 08:42 Dose: 40 mg Oxycodone/Acetaminophen (Percocet 5/325 Mg Tab) 1 tab PO Q6 PRN PRN Reason: Pain, severe (8-10) Stop: 10/05/18 21:31 Last Admin: 10/04/18 15:03 Dose: 1 tab Pantoprazole Sodium (Protonix Ec Tab) 40 mg PO DAILY [facility] Last Admin: 10/04/18 08:42 Dose: 40 mg Promethazine HCl/Dextromethorphan (Phenergan Dm Syrup) 5 ml PO Q8 PRN PRN Reason: Cough Last Admin: 10/04/18 10:47 Dose: 5 ml Results - Vital Signs Recent Vital Signs: Last Vital Signs Temp 98.6 F 10/04/18 15:15 Pulse 97 H 10/04/18 15:15 Resp 20 10/04/18 15:15 BP 126/80 10/04/18 15:15 Pulse Ox 97 10/04/18 15:15 Assessment & Plan (1) Chronic hypercapnic respiratory failure Status: Chronic Priority: High (2) COPD (chronic obstructive pulmonary disease) Status: Chronic Priority: High (3) Lymphangioleiomyomatosis Status: Chronic Priority: High - Assessment and Plan (Free Text) Plan: Continue current medical/aerosol regimen. We'll consider initiating sirolimus immunosuppressive therapy, starting at 2 mg once daily and changing dose based on blood levels. - Date & Time Date: 10/04/18 Time: 15:36
[2018-10-05] MEDS: Albuterol 0.083% Inhal Sol (2.5 mg/3 mL) UD INH PRN ×2 (03:48→14:37)
[2018-10-05] MEDS: Albuterol-Ipratrop 3 mg / 0.5 (3 ml) UD INH SCH ×6 (07:56→19:19)
[2018-10-05] MEDS: Pantoprazole 40 mg EC Tab PO SCH (08:18)
[2018-10-05] MEDS: CETIRIZINE HCL 5 MG PO SCH ×2 (08:18→20:56)
[2018-10-05] MEDS: MethylPREDNISolone 40 mg Vial IVP SCH ×2 (08:18→20:55)
[2018-10-05] MEDS: Enoxaparin 40 mg Syringe SC SCH (08:18)
[2018-10-05] MEDS: Oxycodone/Acetaminophen 5/325 mg Tab PO PRN ×3 (10:38→23:05)
--- NOTE | 2018-10-05 10:47 | CP.PCM.PN ---
Subjective - Date & Time of Evaluation Date of Evaluation: 10/05/18 Time of Evaluation: 10:47 - Subjective Subjective: Will begin sirolimus 2MG POOD when rx is available. Objective - Vital Signs/Intake and Output Vital Signs (last 24 hours): Temp Pulse Resp BP Pulse Ox 97.5 F L 70 18 120/73 100 10/05/18 08:07 10/05/18 08:07 10/05/18 08:07 10/05/18 08:07 10/05/18 08:07 - Medications Medications: Current Medications Acetaminophen (Tylenol 325mg Tab) 650 mg PO Q6 PRN PRN Reason: Pain, Mild (1-3) Albuterol Sulfate (Albuterol 0.083% Inhal Caridad (2.5 Mg/3 Ml) Ud) 2.5 mg INH RQ4 PRN PRN Reason: Shortness of Breath Last Admin: 10/05/18 03:48 Dose: 2.5 mg Albuterol/Ipratropium (Duoneb 3 Mg/0.5 Mg (3 Ml) Ud) 3 ml INH RQID [facility] Last Admin: 10/05/18 07:56 Dose: 3 ml Alprazolam (Xanax) 0.25 mg PO Q8 PRN PRN Reason: Anxiety Stop: 10/09/18 21:31 Last Admin: 10/05/18 08:23 Dose: 0.25 mg Enoxaparin Sodium (Lovenox) 40 mg SC DAILY [facility]; Protocol Last Admin: 10/05/18 08:18 Dose: 40 mg Fluticasone Propionate (Flonase) 1 spr KIRBY BID PRN PRN Reason: Nasal congestion Last Admin: 10/04/18 15:01 Dose: 1 spr Home Med (Cetirizine Hcl [Wal-Zyr]) 5 mg PO Q12 [facility] Last Admin: 10/05/18 08:18 Dose: 5 mg Methylprednisolone (Solu-Medrol) 30 mg IVP Q12 [facility] Oxycodone/Acetaminophen (Percocet 5/325 Mg Tab) 1 tab PO Q6 PRN PRN Reason: Pain, severe (8-10) Stop: 10/05/18 21:31 Last Admin: 10/05/18 10:38 Dose: 1 tab Pantoprazole Sodium (Protonix Ec Tab) 40 mg PO DAILY [facility] Last Admin: 10/05/18 08:18 Dose: 40 mg Promethazine HCl/Dextromethorphan (Phenergan Dm Syrup) 5 ml PO Q8 PRN PRN Reason: Cough Last Admin: 10/04/18 22:50 Dose: 5 ml Assessment and Plan (1) Chronic hypercapnic respiratory failure Status: Chronic (2) COPD (chronic obstructive pulmonary disease) Status: Chronic (3) Lymphangioleiomyomatosis Status: Chronic
--- NOTE | 2018-10-05 14:31 | CP.PCM.PN ---
Subjective - Date & Time of Evaluation Date of Evaluation: 10/05/18 Time of Evaluation: 10:45 - Subjective Subjective: Patient seen and examined. Denied any complaint. Objective - Vital Signs/Intake and Output Vital Signs (last 24 hours): Temp Pulse Resp BP Pulse Ox 97.5 F L 70 18 120/73 100 10/05/18 08:07 10/05/18 08:07 10/05/18 08:07 10/05/18 08:07 10/05/18 08:07 - Medications Medications: Current Medications Acetaminophen (Tylenol 325mg Tab) 650 mg PO Q6 PRN PRN Reason: Pain, Mild (1-3) Albuterol Sulfate (Albuterol 0.083% Inhal Caridad (2.5 Mg/3 Ml) Ud) 2.5 mg INH RQ4 PRN PRN Reason: Shortness of Breath Last Admin: 10/05/18 03:48 Dose: 2.5 mg Albuterol/Ipratropium (Duoneb 3 Mg/0.5 Mg (3 Ml) Ud) 3 ml INH RQID [facility]ISSE Last Admin: 10/05/18 13:04 Dose: 3 ml Alprazolam (Xanax) 0.25 mg PO Q8 PRN PRN Reason: Anxiety Stop: 10/09/18 21:31 Last Admin: 10/05/18 08:23 Dose: 0.25 mg Enoxaparin Sodium (Lovenox) 40 mg SC DAILY [facility]; Protocol Last Admin: 10/05/18 08:18 Dose: 40 mg Fluticasone Propionate (Flonase) 1 spr KIRBY BID PRN PRN Reason: Nasal congestion Last Admin: 10/04/18 15:01 Dose: 1 spr Home Med (Cetirizine Hcl [Wal-Zyr]) 5 mg PO Q12 [facility] Last Admin: 10/05/18 08:18 Dose: 5 mg Methylprednisolone (Solu-Medrol) 30 mg IVP Q12 [facility] Oxycodone/Acetaminophen (Percocet 5/325 Mg Tab) 1 tab PO Q6 PRN PRN Reason: Pain, severe (8-10) Stop: 10/05/18 21:31 Last Admin: 10/05/18 10:38 Dose: 1 tab Pantoprazole Sodium (Protonix Ec Tab) 40 mg PO DAILY [facility] Last Admin: 10/05/18 08:18 Dose: 40 mg Promethazine HCl/Dextromethorphan (Phenergan Dm Syrup) 5 ml PO Q8 PRN PRN Reason: Cough Last Admin: 10/04/18 22:50 Dose: 5 ml - Constitutional Appears: No Acute Distress - Head Exam Head Exam: ATRAUMATIC - Eye Exam Eye Exam: absent: Scleral icterus - ENT Exam ENT Exam: Mucous Membranes Moist - Neck Exam Neck Exam: absent: Meningismus - Respiratory Exam Respiratory Exam: absent: Rales, Rhonchi, Wheezes, Respiratory Distress - Cardiovascular Exam Cardiovascular Exam: REGULAR RHYTHM, +S1, +S2 - GI/Abdominal Exam GI & Abdominal Exam: Soft. absent: Tenderness - Rectal Exam Rectal Exam: Deferred - Neurological Exam Neurological Exam: Alert, Oriented x3 - Psychiatric Exam Psychiatric exam: Normal Affect - Skin Skin Exam: Dry, Intact Assessment and Plan - Assessment and Plan (Free Text) Assessment: 58 yo female with history of advanced stage Lymphangioleiomyomatosis, COPD, anxiety and depression admitted initially for COPD exacerbation. She was discharged to TCU for therapy because of generalized weakness and coninuation of management of COPD. 1. Advanced COPD/Lymphangioleiomyomatosis with chronic hypercapneic respiratory failure presently stable will put on Sirolimus when available 2. Chronic Pain syndrome continue pain management with Percocet and Toradol continue PT 3. Anxiety Continue 0.25 Q8hr PRN 4. DVT Prophylaxis on Lovenox
[2018-10-05] MEDS: Promethazine DM 6.25 mg-15 mg/5 ml Syrup PO PRN (14:33)
[2018-10-05] MEDS: Mycolog II OINT TOP SCH (16:32)
[2018-10-05] MEDS ORDERED: methylPREDNISolone 30 MG in Sodium Chloride 0.9% 50 ML IV SCH (21:00)
[2018-10-05] MEDS: Simethicone 80 mg Chewtab PO PRN (22:27)
[2018-10-06] MEDS: Albuterol 0.083% Inhal Sol (2.5 mg/3 mL) UD INH PRN ×3 (00:35→23:30)
[2018-10-06] MEDS: Albuterol-Ipratrop 3 mg / 0.5 (3 ml) UD INH SCH ×4 (07:48→19:07)
[2018-10-06] MEDS: Oxycodone/Acetaminophen 5/325 mg Tab PO PRN ×2 (07:54→18:37)
[2018-10-06] MEDS: Enoxaparin 40 mg Syringe SC SCH (08:39)
[2018-10-06] MEDS: CETIRIZINE HCL 5 MG PO SCH ×2 (08:40→20:06)
[2018-10-06] MEDS: Pantoprazole 40 mg EC Tab PO SCH (08:41)
[2018-10-06] MEDS: MethylPREDNISolone 40 mg Vial IVP SCH (08:41)
[2018-10-06] MEDS: Promethazine DM 6.25 mg-15 mg/5 ml Syrup PO PRN (09:51)
[2018-10-06] MEDS: Mycolog II OINT TOP SCH ×3 (09:52→17:15)
--- NOTE | 2018-10-06 13:32 | CP.PCM.PN ---
Subjective - Date & Time of Evaluation Date of Evaluation: 10/06/18 Time of Evaluation: 13:29 - Subjective Subjective: Patient remains dyspneic with activities. Using oxygen via simple face mask at 4-5 LPM. Oxygenation is improved with use of face mask and remains 95%+. Becomes tachypneic with minimal exertion. Breath sounds are diminished equally in both lungs. Inspiratory phase is shortened, no audible wheezes. Sirolimus has been declined by her PBM on initial request. Will submit appeal and await their decision. Objective - Vital Signs/Intake and Output Vital Signs (last 24 hours): Temp Pulse Resp BP Pulse Ox 96.8 F L 91 H 20 121/78 98 10/05/18 19:29 10/06/18 00:34 10/05/18 19:29 10/05/18 19:29 10/05/18 19:29 - Medications Medications: Current Medications Acetaminophen (Tylenol 325mg Tab) 650 mg PO Q6 PRN PRN Reason: Pain, Mild (1-3) Albuterol Sulfate (Albuterol 0.083% Inhal Caridad (2.5 Mg/3 Ml) Ud) 2.5 mg INH RQ4 PRN PRN Reason: Shortness of Breath Last Admin: 10/06/18 04:34 Dose: 2.5 mg Albuterol/Ipratropium (Duoneb 3 Mg/0.5 Mg (3 Ml) Ud) 3 ml INH RQID DENISSE Last Admin: 10/06/18 11:05 Dose: 3 ml Alprazolam (Xanax) 0.25 mg PO Q8 PRN PRN Reason: Anxiety Stop: 10/09/18 21:31 Last Admin: 10/05/18 20:54 Dose: 0.25 mg Fluticasone Propionate (Flonase) 1 spr KIRBY BID PRN PRN Reason: Nasal congestion Last Admin: 10/04/18 15:01 Dose: 1 spr Home Med (Cetirizine Hcl [Wal-Zyr]) 5 mg PO Q12 [facility] Last Admin: 10/06/18 08:40 Dose: 5 mg Methylprednisolone (Solu-Medrol) 30 mg IVP Q12 [facility] Last Admin: 10/06/18 08:41 Dose: 30 mg Nystatin/Triamcinolone Acetonide (Mycolog Ii Oint) 1 applic TOP TID [facility] Last Admin: 10/06/18 09:52 Dose: 1 applic Oxycodone/Acetaminophen (Percocet 5/325 Mg Tab) 1 tab PO Q6 PRN PRN Reason: Other Stop: 10/08/18 23:01 Last Admin: 10/06/18 07:54 Dose: 1 tab Pantoprazole Sodium (Protonix Ec Tab) 40 mg PO DAILY [facility] Last Admin: 10/06/18 08:41 Dose: 40 mg Promethazine HCl/Dextromethorphan (Phenergan Dm Syrup) 5 ml PO Q8 PRN PRN Reason: Cough Last Admin: 10/06/18 09:51 Dose: 5 ml Simethicone (Mylicon Chew Tab) 80 mg PO Q8 PRN PRN Reason: GI distress Last Admin: 10/05/18 22:27 Dose: 80 mg Assessment and Plan (1) Chronic hypercapnic respiratory failure Status: Chronic (2) COPD (chronic obstructive pulmonary disease) Status: Chronic (3) Lymphangioleiomyomatosis Status: Chronic
[2018-10-06] MEDS ORDERED: methylPREDNISolone 30 MG in Sodium Chloride 0.9% 50 ML IV SCH (14:15)
[2018-10-06] MEDS ORDERED: MethylPREDNISolone 40 mg Vial IVP SCH (14:30)
[2018-10-07] MEDS: MethylPREDNISolone 40 mg Vial IVP SCH ×3 (00:22→16:22)
[2018-10-07] MEDS: Albuterol 0.083% Inhal Sol (2.5 mg/3 mL) UD INH PRN ×2 (04:33→23:46)
[2018-10-07] MEDS: Oxycodone/Acetaminophen 5/325 mg Tab PO PRN ×3 (04:38→17:23)
[2018-10-07] MEDS: Promethazine DM 6.25 mg-15 mg/5 ml Syrup PO PRN ×2 (06:31→16:22)
[2018-10-07] MEDS: CETIRIZINE HCL 5 MG PO SCH ×2 (08:27→21:32)
[2018-10-07] MEDS: Mycolog II OINT TOP SCH ×3 (08:28→16:21)
[2018-10-07] MEDS: Pantoprazole 40 mg EC Tab PO SCH (08:29)
[2018-10-07] MEDS: Albuterol-Ipratrop 3 mg / 0.5 (3 ml) UD INH SCH ×4 (08:44→19:04)
[2018-10-07 16:57] LABS: HEMOGLOBIN 12.8 g/dL (12.0-16.0); MEAN CELL VOLUME 90.5 fl (81.0-99.0); MEAN CORPUSCULAR HEMOGLOBIN 28.2 pg (27.0-31.0); MEAN CORPUSCULAR HGB CONC 31.2 g/dL (33.0-37.0); RBC 4.54 Mil/uL (3.80-5.20); RED CELL DISTRIBUTION WIDTH 14.5 % (11.5-14.5); WHITE BLOOD COUNT 16.6 K/uL (4.8-10.8)
[2018-10-07 17:05] LABS: INR 0.9; PROTHROMBIN TIME 10.2 Seconds (9.8-13.1)
[2018-10-07 17:08] LABS: PARTIAL THROMBOPLASTIN TIME 24.9 Seconds (25.6-37.1)
[2018-10-07 17:23] LABS: ALB/GLOB RATIO 1.2 (1.0-2.1); ALBUMIN 3.8 g/dL (3.5-5.0); AST/SGOT 20 U/L (14-36); BLOOD UREA NITROGEN 24 mg/dl (7-17); GFR NON-AFRICAN AMERICAN > 60
[2018-10-07 17:24] LABS: ALT/SGPT 38 U/L (9-52)
[2018-10-08] MEDS: Oxycodone/Acetaminophen 5/325 mg Tab PO PRN ×3 (00:17→18:00)
[2018-10-08] MEDS: MethylPREDNISolone 40 mg Vial IVP SCH ×3 (00:45→16:38)
[2018-10-08] MEDS: Promethazine DM 6.25 mg-15 mg/5 ml Syrup PO PRN ×3 (03:02→21:16)
[2018-10-08] MEDS: Albuterol 0.083% Inhal Sol (2.5 mg/3 mL) UD INH PRN ×2 (03:20→21:38)
[2018-10-08] MEDS: Albuterol-Ipratrop 3 mg / 0.5 (3 ml) UD INH SCH ×4 (07:30→19:17)
[2018-10-08] MEDS: CETIRIZINE HCL 5 MG PO SCH ×2 (08:33→21:15)
[2018-10-08] MEDS: Enoxaparin 40 mg Syringe SC SCH (08:34)
[2018-10-08] MEDS: Pantoprazole 40 mg EC Tab PO SCH (08:35)
[2018-10-08] MEDS: Mycolog II OINT TOP SCH ×3 (09:00→16:37)
[2018-10-09] MEDS: MethylPREDNISolone 40 mg Vial IVP SCH ×3 (00:19→21:13)
[2018-10-09] MEDS: Albuterol 0.083% Inhal Sol (2.5 mg/3 mL) UD INH PRN ×2 (01:23→05:11)
[2018-10-09] MEDS ORDERED: Oxycodone/Acetaminophen 5/325 mg Tab PO PRN (06:21)
[2018-10-09] MEDS: Albuterol-Ipratrop 3 mg / 0.5 (3 ml) UD INH SCH ×4 (08:11→19:04)
[2018-10-09] MEDS: Oxycodone/Acetaminophen 5/325 mg Tab PO PRN ×3 (08:33→21:10)
[2018-10-09] MEDS: Enoxaparin 40 mg Syringe SC SCH (08:33)
[2018-10-09] MEDS: Mycolog II OINT TOP SCH ×3 (08:34→16:56)
[2018-10-09] MEDS: Pantoprazole 40 mg EC Tab PO SCH (08:39)
[2018-10-09] MEDS: Promethazine DM 6.25 mg-15 mg/5 ml Syrup PO PRN ×2 (08:39→19:59)
[2018-10-09] MEDS: CETIRIZINE HCL 5 MG PO SCH ×3 (08:40→21:09)
--- NOTE | 2018-10-09 11:26 | CP.PCM.PN ---
Subjective - Date & Time of Evaluation Date of Evaluation: 10/09/18 Time of Evaluation: 11:26 - Subjective Subjective: Patient seated on EOB. Relates increased level of anxiety related to steroid use. On exam the lungs are clear, but the inspiratory phase is shortened. No wheezes or bronchial breath sounds are heard. Dependant edema +. No cyanosis. Sirolimus has been approved and medication is expected to come from outside pharmacy later today. Will initiate dosing at 2MG PO daily starting tomorrow morning. Will request CBC/CMP for the morning. Will begin statin therapy for elevated lipid level as well. Objective - Vital Signs/Intake and Output Vital Signs (last 24 hours): Temp Pulse Resp BP Pulse Ox 97.7 F 80 18 146/87 100 10/09/18 08:00 10/09/18 08:00 10/09/18 08:00 10/09/18 08:00 10/09/18 08:00 - Medications Medications: Current Medications Acetaminophen (Tylenol 325mg Tab) 650 mg PO Q6 PRN PRN Reason: Pain, Mild (1-3) Acetazolamide (Diamox Sequels 500 Mg Sr Cap) 500 mg PO DAILY [facility] Albuterol Sulfate (Albuterol 0.083% Inhal Caridad (2.5 Mg/3 Ml) Ud) 2.5 mg INH RQ4 PRN PRN Reason: Shortness of Breath Last Admin: 10/09/18 05:11 Dose: 2.5 mg Albuterol/Ipratropium (Duoneb 3 Mg/0.5 Mg (3 Ml) Ud) 3 ml INH RQID [facility] Last Admin: 10/09/18 11:19 Dose: 3 ml Alprazolam (Xanax) 0.25 mg PO Q8 PRN PRN Reason: Anxiety Stop: 10/16/18 06:21 Enoxaparin Sodium (Lovenox) 40 mg SC DAILY [facility]; Protocol Last Admin: 10/09/18 08:33 Dose: 40 mg Fluticasone Propionate (Flonase) 1 spr KIRBY BID PRN PRN Reason: Nasal congestion Last Admin: 10/07/18 16:21 Dose: 1 spr Home Med (Cetirizine Hcl [Wal-Zyr]) 5 mg PO Q12 [facility] Last Admin: 10/09/18 09:13 Dose: 5 mg Methylprednisolone (Solu-Medrol) 30 mg IVP Q8@0100,0900,1700 [facility] Last Admin: 10/09/18 08:32 Dose: 30 mg Nystatin/Triamcinolone Acetonide (Mycolog Ii Oint) 1 applic TOP TID [facility] Last Admin: 10/09/18 08:34 Dose: 1 applic Oxycodone/Acetaminophen (Percocet 5/325 Mg Tab) 1 tab PO Q6 PRN PRN Reason: Pain,mod and severe (4-10) Stop: 10/12/18 06:22 Last Admin: 10/09/18 08:33 Dose: 1 tab Pantoprazole Sodium (Protonix Ec Tab) 40 mg PO DAILY [facility] Last Admin: 10/09/18 08:39 Dose: 40 mg Promethazine HCl/Dextromethorphan (Phenergan Dm Syrup) 5 ml PO Q8 PRN PRN Reason: Cough Last Admin: 10/09/18 08:39 Dose: 5 ml Simethicone (Mylicon Chew Tab) 80 mg PO Q8 PRN PRN Reason: GI distress Last Admin: 10/05/18 22:27 Dose: 80 mg - Labs Labs: 10/07/18 16:45 10/07/18 16:45 PT 10.2 Seconds (9.8-13.1) 10/07/18 16:45 INR 0.9 10/07/18 16:45 APTT 24.9 Seconds (25.6-37.1) L 10/07/18 16:45 Assessment and Plan (1) Chronic hypercapnic respiratory failure Status: Chronic (2) COPD (chronic obstructive pulmonary disease) Status: Chronic (3) Lymphangioleiomyomatosis Status: Chronic
[2018-10-09] MEDS: acetaZOLAMIDE 500 mg SR Cap PO SCH (12:00)
[2018-10-09] MEDS ORDERED: methylPREDNISolone 30 MG in Sodium Chloride 0.9% 50 ML IV SCH (21:00)
[2018-10-10] MEDS: Albuterol 0.083% Inhal Sol (2.5 mg/3 mL) UD INH PRN ×2 (00:37→04:13)
[2018-10-10] MEDS: Promethazine DM 6.25 mg-15 mg/5 ml Syrup PO PRN ×2 (07:07→16:45)
[2018-10-10] MEDS: Oxycodone/Acetaminophen 5/325 mg Tab PO PRN ×2 (08:05→15:07)
[2018-10-10] MEDS: Albuterol-Ipratrop 3 mg / 0.5 (3 ml) UD INH SCH ×4 (08:07→20:06)
[2018-10-10] MEDS: CETIRIZINE HCL 5 MG PO SCH ×2 (08:26→20:28)
[2018-10-10] MEDS: acetaZOLAMIDE 500 mg SR Cap PO SCH (08:26)
[2018-10-10] MEDS: Enoxaparin 40 mg Syringe SC SCH (08:26)
[2018-10-10] MEDS: Mycolog II OINT TOP SCH ×3 (08:27→16:43)
[2018-10-10] MEDS: MethylPREDNISolone 40 mg Vial IVP SCH ×2 (08:27→20:20)
[2018-10-10] MEDS: Pantoprazole 40 mg EC Tab PO SCH (08:28)
--- NOTE | 2018-10-10 13:59 | CP.PCM.PN ---
Subjective - Date & Time of Evaluation Date of Evaluation: 10/10/18 Time of Evaluation: 13:30 - Subjective Subjective: Patient seen and examined bedside. Lying in bed with BIPAP on . States that does not feel well , that needs to catch her breath before can answer any questions.As per her showing no improvement. Afebrile Chronically ill, hemodynamically stable, saturating 97-100 % on 4 L O2 or FIO2 30 %, RR 18-20 Objective - Vital Signs/Intake and Output Vital Signs (last 24 hours): Temp Pulse Resp BP Pulse Ox 97.6 F 94 H 18 131/84 97 10/10/18 08:18 10/10/18 08:18 10/10/18 08:18 10/10/18 08:18 10/10/18 08:18 - Medications Medications: Current Medications Acetaminophen (Tylenol 325mg Tab) 650 mg PO Q6 PRN PRN Reason: Pain, Mild (1-3) Acetazolamide (Diamox Sequels 500 Mg Sr Cap) 500 mg PO DAILY [facility] Last Admin: 10/10/18 08:26 Dose: 500 mg Albuterol Sulfate (Albuterol 0.083% Inhal Caridad (2.5 Mg/3 Ml) Ud) 2.5 mg INH RQ4 PRN PRN Reason: Shortness of Breath Last Admin: 10/10/18 04:13 Dose: 2.5 mg Albuterol/Ipratropium (Duoneb 3 Mg/0.5 Mg (3 Ml) Ud) 3 ml INH RQID [facility] Last Admin: 10/10/18 11:10 Dose: 3 ml Alprazolam (Xanax) 0.25 mg PO Q8 PRN PRN Reason: Anxiety Stop: 10/16/18 06:21 Last Admin: 10/10/18 08:38 Dose: 0.25 mg Atorvastatin Calcium (Lipitor) 10 mg PO HS [facility] Last Admin: 10/09/18 21:10 Dose: 10 mg Enoxaparin Sodium (Lovenox) 40 mg SC DAILY [facility]; Protocol Last Admin: 10/10/18 08:26 Dose: 40 mg Fluticasone Propionate (Flonase) 1 spr KIRBY BID PRN PRN Reason: Nasal congestion Last Admin: 10/07/18 16:21 Dose: 1 spr Home Med (Cetirizine Hcl [Wal-Zyr]) 5 mg PO Q12 [facility] Last Admin: 10/10/18 08:26 Dose: 5 mg Home Med (Home Med) 1 unit PO DAILY [facility] Methylprednisolone (Solu-Medrol) 30 mg IVP Q12 [facility] Last Admin: 10/10/18 08:27 Dose: 30 mg Nystatin/Triamcinolone Acetonide (Mycolog Ii Oint) 1 applic TOP TID [facility] Last Admin: 10/10/18 08:27 Dose: Not Given Oxycodone/Acetaminophen (Percocet 5/325 Mg Tab) 1 tab PO Q6 PRN PRN Reason: Pain,mod and severe (4-10) Stop: 10/12/18 06:22 Last Admin: 10/10/18 08:05 Dose: 1 tab Pantoprazole Sodium (Protonix Ec Tab) 40 mg PO DAILY [facility] Last Admin: 10/10/18 08:28 Dose: 40 mg Promethazine HCl/Dextromethorphan (Phenergan Dm Syrup) 5 ml PO Q8 PRN PRN Reason: Cough Last Admin: 10/10/18 07:07 Dose: 5 ml Simethicone (Mylicon Chew Tab) 80 mg PO Q8 PRN PRN Reason: GI distress Last Admin: 10/05/18 22:27 Dose: 80 mg - Labs Labs: 10/07/18 16:45 10/07/18 16:45 PT 10.2 Seconds (9.8-13.1) 10/07/18 16:45 INR 0.9 10/07/18 16:45 APTT 24.9 Seconds (25.6-37.1) L 10/07/18 16:45 - Constitutional Appears: Chronically Ill - Head Exam Head Exam: ATRAUMATIC, NORMOCEPHALIC - Eye Exam Eye Exam: PERRL Pupil Exam: NORMAL ACCOMODATION - ENT Exam ENT Exam: Mucous Membranes Dry, Normal Exam - Neck Exam Neck Exam: Normal Inspection - Respiratory Exam Respiratory Exam: Decreased Breath Sounds, Prolonged Expiratory Phase. absent: Rales, Wheezes - Cardiovascular Exam Cardiovascular Exam: REGULAR RHYTHM, +S1, +S2. absent: JVD - GI/Abdominal Exam GI & Abdominal Exam: Soft, Normal Bowel Sounds. absent: Distended, Guarding, Rebound - Rectal Exam Rectal Exam: Deferred - Extremities Exam Extremities Exam: Normal Inspection - Back Exam Back Exam: NORMAL INSPECTION - Neurological Exam Neurological Exam: Alert, Awake - Psychiatric Exam Psychiatric exam: Normal Affect - Skin Skin Exam: Dry, Warm Assessment and Plan - Assessment and Plan (Free Text) Assessment: 58 yo female with history of advanced stage Lymphangioleiomyomatosis, COPD, anxiety and depression admitted initially for COPD exacerbation. She was discharged to TCU for therapy because of generalized weakness and continuation of management of COPD. At present on BIPAp , states that does not feel well due to persistent dyspnea at rest 1. Advanced COPD/Lymphangioleiomyomatosis with chronic hypercapneic respiratory failure pulmonary on consult following and managing continue Biap use ordered Sirolimus as per pulmonary to be started when received by pharmacy 2. Chronic Pain syndrome continue pain management with Percocet and Toradol continue PT 3. Anxiety Continue 0.25 Q8hr PRN 4. DVT Prophylaxis on Lovenox
[2018-10-11] MEDS: Albuterol 0.083% Inhal Sol (2.5 mg/3 mL) UD INH PRN ×3 (00:45→23:50)
[2018-10-11] MEDS: Oxycodone/Acetaminophen 5/325 mg Tab PO PRN ×3 (01:00→15:34)
[2018-10-11] MEDS: Promethazine DM 6.25 mg-15 mg/5 ml Syrup PO PRN ×2 (04:05→18:07)
[2018-10-11] MEDS: Albuterol-Ipratrop 3 mg / 0.5 (3 ml) UD INH SCH ×4 (08:39→19:30)
[2018-10-11] MEDS: MethylPREDNISolone 40 mg Vial IVP SCH (08:55)
[2018-10-11] MEDS: acetaZOLAMIDE 500 mg SR Cap PO SCH (08:56)
[2018-10-11] MEDS: Enoxaparin 40 mg Syringe SC SCH (08:57)
[2018-10-11] MEDS: Mycolog II OINT TOP SCH ×3 (08:58→16:31)
[2018-10-11] MEDS: CETIRIZINE HCL 5 MG PO SCH (08:58)
[2018-10-11] MEDS: Pantoprazole 40 mg EC Tab PO SCH (08:58)
--- NOTE | 2018-10-11 09:41 | CP.PCM.PN ---
Subjective - Date & Time of Evaluation Date of Evaluation: 10/11/18 Time of Evaluation: 09:38 - Subjective Subjective: Seated in bed, appears more comfortable. Interim events reviewed. Medications reviewed. Hopeful sirolimus will be started today. Dependant edema has improved. Breath sounds are clear, very diminished, with short inspiratory phase. Labs to be repeated tomorrow. Will reduce steroid dosing and begin sirolimus. Objective - Vital Signs/Intake and Output Vital Signs (last 24 hours): Temp Pulse Resp BP Pulse Ox 97.4 F L 88 18 124/78 100 10/11/18 08:12 10/11/18 08:12 10/11/18 08:12 10/11/18 08:12 10/11/18 08:12 - Medications Medications: Current Medications Acetaminophen (Tylenol 325mg Tab) 650 mg PO Q6 PRN PRN Reason: Pain, Mild (1-3) Acetazolamide (Diamox Sequels 500 Mg Sr Cap) 500 mg PO DAILY [facility] Last Admin: 10/11/18 08:56 Dose: 500 mg Albuterol Sulfate (Albuterol 0.083% Inhal Caridad (2.5 Mg/3 Ml) Ud) 2.5 mg INH RQ4 PRN PRN Reason: Shortness of Breath Last Admin: 10/11/18 05:06 Dose: 2.5 mg Albuterol/Ipratropium (Duoneb 3 Mg/0.5 Mg (3 Ml) Ud) 3 ml INH RQID [facility] Last Admin: 10/11/18 08:39 Dose: 3 ml Alprazolam (Xanax) 0.25 mg PO Q8 PRN PRN Reason: Anxiety Stop: 10/16/18 06:21 Last Admin: 10/10/18 20:27 Dose: 0.25 mg Atorvastatin Calcium (Lipitor) 10 mg PO HS [facility] Last Admin: 10/10/18 21:15 Dose: 10 mg Enoxaparin Sodium (Lovenox) 40 mg SC DAILY [facility]; Protocol Last Admin: 10/11/18 08:57 Dose: 40 mg Fluticasone Propionate (Flonase) 1 spr KIRBY BID PRN PRN Reason: Nasal congestion Last Admin: 10/11/18 08:56 Dose: 1 spr Home Med (Cetirizine Hcl [Wal-Zyr]) 5 mg PO Q12 [facility] Last Admin: 10/11/18 08:58 Dose: 5 mg Home Med (Home Med) 1 unit PO DAILY [facility] Methylprednisolone (Solu-Medrol) 30 mg IVP Q12 [facility] Stop: 10/11/18 23:59 Last Admin: 10/11/18 08:55 Dose: 30 mg Nystatin/Triamcinolone Acetonide (Mycolog Ii Oint) 1 applic TOP TID [facility] Last Admin: 10/11/18 08:58 Dose: 1 applic Oxycodone/Acetaminophen (Percocet 5/325 Mg Tab) 1 tab PO Q6 PRN PRN Reason: Pain,mod and severe (4-10) Stop: 10/12/18 06:22 Last Admin: 10/11/18 08:55 Dose: 1 tab Pantoprazole Sodium (Protonix Ec Tab) 40 mg PO DAILY [facility] Last Admin: 10/11/18 08:58 Dose: 40 mg Promethazine HCl/Dextromethorphan (Phenergan Dm Syrup) 5 ml PO Q8 PRN PRN Reason: Cough Last Admin: 10/11/18 04:05 Dose: 5 ml Simethicone (Mylicon Chew Tab) 80 mg PO Q8 PRN PRN Reason: GI distress Last Admin: 10/05/18 22:27 Dose: 80 mg - Labs Labs: 10/07/18 16:45 10/07/18 16:45 PT 10.2 Seconds (9.8-13.1) 10/07/18 16:45 INR 0.9 10/07/18 16:45 APTT 24.9 Seconds (25.6-37.1) L 10/07/18 16:45 Assessment and Plan (1) Chronic hypercapnic respiratory failure Status: Chronic (2) COPD (chronic obstructive pulmonary disease) Status: Chronic (3) Lymphangioleiomyomatosis Status: Chronic
[2018-10-11] MEDS: SIROLIMUS 2 MG PO SCH (10:12)
[2018-10-12] MEDS: Albuterol 0.083% Inhal Sol (2.5 mg/3 mL) UD INH PRN (04:11)
[2018-10-12 06:47] LABS: ALB/GLOB RATIO 1.2 (1.0-2.1); ALBUMIN 3.2 g/dL (3.5-5.0); ALT/SGPT 57 U/L (9-52); AST/SGOT 20 U/L (14-36); BLOOD UREA NITROGEN 28 mg/dl (7-17); CALCIUM 8.6 mg/dL (8.4-10.2); GFR NON-AFRICAN AMERICAN > 60
[2018-10-12 06:53] LABS: HEMOGLOBIN 12.1 g/dL (12.0-16.0); MEAN CELL VOLUME 96.1 fl (81.0-99.0); MEAN CORPUSCULAR HEMOGLOBIN 28.3 pg (27.0-31.0); MEAN CORPUSCULAR HGB CONC 29.4 g/dL (33.0-37.0); RBC 4.26 Mil/uL (3.80-5.20); RED CELL DISTRIBUTION WIDTH 15.8 % (11.5-14.5); WHITE BLOOD COUNT 16.1 K/uL (4.8-10.8)
[2018-10-12] MEDS: Albuterol-Ipratrop 3 mg / 0.5 (3 ml) UD INH SCH ×4 (08:14→19:23)
[2018-10-12] MEDS: Oxycodone/Acetaminophen 5/325 mg Tab PO PRN ×2 (08:54→18:23)
[2018-10-12] MEDS: SIROLIMUS 2 MG PO SCH (08:55)
[2018-10-12] MEDS: Mycolog II OINT TOP SCH ×3 (08:55→16:11)
[2018-10-12] MEDS: Enoxaparin 40 mg Syringe SC SCH ×2 (08:56→10:23)
[2018-10-12] MEDS: Pantoprazole 40 mg EC Tab PO SCH (08:56)
[2018-10-12] MEDS: CETIRIZINE HCL 5 MG PO SCH ×2 (08:56→21:07)
[2018-10-12] MEDS: acetaZOLAMIDE 500 mg SR Cap PO SCH (08:56)
[2018-10-12] MEDS: Promethazine DM 6.25 mg-15 mg/5 ml Syrup PO PRN (08:57)
[2018-10-12] MEDS: Simethicone 80 mg Chewtab PO PRN (08:57)
[2018-10-12] MEDS ORDERED: MethylPREDNISolone 40 mg Vial IVP SCH (09:00)
[2018-10-12] MEDS ORDERED: methylPREDNISolone 30 MG in Sodium Chloride 0.9% 50 ML IV SCH (09:00)
--- NOTE | 2018-10-12 10:19 | CP.PCM.PN ---
Subjective - Date & Time of Evaluation Date of Evaluation: 10/12/18 Time of Evaluation: 10:17 - Subjective Subjective: Has been started on sirolimus yesterday w/o incident. Will begin steady reduction in prednisone, slowing the decrease as the dose gets to 10MG. Objective - Vital Signs/Intake and Output Vital Signs (last 24 hours): Temp Pulse Resp BP Pulse Ox 97.5 F L 97 H 18 134/78 93 L 10/12/18 08:43 10/12/18 08:43 10/12/18 08:43 10/12/18 08:43 10/12/18 08:43 - Medications Medications: Current Medications Acetaminophen (Tylenol 325mg Tab) 650 mg PO Q6 PRN PRN Reason: Pain, Mild (1-3) Acetazolamide (Diamox Sequels 500 Mg Sr Cap) 500 mg PO DAILY [facility] Last Admin: 10/12/18 08:56 Dose: 500 mg Albuterol Sulfate (Albuterol 0.083% Inhal Caridad (2.5 Mg/3 Ml) Ud) 2.5 mg INH RQ4 PRN PRN Reason: Shortness of Breath Last Admin: 10/12/18 04:11 Dose: 2.5 mg Albuterol/Ipratropium (Duoneb 3 Mg/0.5 Mg (3 Ml) Ud) 3 ml INH RQID [facility] Last Admin: 10/12/18 08:14 Dose: 3 ml Alprazolam (Xanax) 0.25 mg PO Q8 PRN PRN Reason: Anxiety Stop: 10/16/18 06:21 Last Admin: 10/11/18 13:04 Dose: 0.25 mg Atorvastatin Calcium (Lipitor) 10 mg PO HS [facility] Last Admin: 10/10/18 21:15 Dose: 10 mg Enoxaparin Sodium (Lovenox) 40 mg SC DAILY [facility]; Protocol Last Admin: 10/11/18 08:57 Dose: 40 mg Fluticasone Propionate (Flonase) 1 spr KIRBY BID PRN PRN Reason: Nasal congestion Last Admin: 10/12/18 08:55 Dose: 1 spr Home Med (Cetirizine Hcl [Wal-Zyr]) 5 mg PO Q12 [facility] Last Admin: 10/12/18 08:56 Dose: 5 mg Home Med (Home Med) 1 unit PO DAILY [facility] Last Admin: 10/12/18 08:55 Dose: 1 unit Nystatin/Triamcinolone Acetonide (Mycolog Ii Oint) 1 applic TOP TID [facility] Last Admin: 10/12/18 08:55 Dose: 1 applic Oxycodone/Acetaminophen (Percocet 5/325 Mg Tab) 1 tab PO Q6 PRN PRN Reason: Pain, severe (8-10) Stop: 10/15/18 07:55 Last Admin: 10/12/18 08:54 Dose: 1 tab Pantoprazole Sodium (Protonix Ec Tab) 40 mg PO DAILY [facility] Last Admin: 10/12/18 08:56 Dose: 40 mg Prednisone (Prednisone Tab) 30 mg PO DAILY [facility] Stop: 10/12/18 23:59 Prednisone (Prednisone Tab) 25 mg PO ONCE ONE Stop: 10/13/18 09:01 Promethazine HCl/Dextromethorphan (Phenergan Dm Syrup) 5 ml PO Q8 PRN PRN Reason: Cough Last Admin: 10/12/18 08:57 Dose: 5 ml Simethicone (Mylicon Chew Tab) 80 mg PO Q8 PRN PRN Reason: GI distress Last Admin: 10/12/18 08:57 Dose: 80 mg - Labs Labs: 10/12/18 05:45 10/12/18 05:45 PT 10.2 Seconds (9.8-13.1) 10/07/18 16:45 INR 0.9 10/07/18 16:45 APTT 24.9 Seconds (25.6-37.1) L 10/07/18 16:45 Assessment and Plan (1) Chronic hypercapnic respiratory failure Status: Chronic (2) COPD (chronic obstructive pulmonary disease) Status: Chronic (3) Lymphangioleiomyomatosis Status: Chronic
--- NOTE | 2018-10-12 20:58 | CP.PCM.PN ---
Subjective - Date & Time of Evaluation Date of Evaluation: 10/12/18 Time of Evaluation: 11:00 - Subjective Subjective: Patient seen and examined. Denied any complaint. Objective - Vital Signs/Intake and Output Vital Signs (last 24 hours): Temp Pulse Resp BP Pulse Ox 98.1 F 111 H 20 145/79 100 10/12/18 19:40 10/12/18 19:40 10/12/18 19:40 10/12/18 19:40 10/12/18 19:40 - Medications Medications: Current Medications Acetaminophen (Tylenol 325mg Tab) 650 mg PO Q6 PRN PRN Reason: Pain, Mild (1-3) Acetazolamide (Diamox Sequels 500 Mg Sr Cap) 500 mg PO DAILY [facility] Last Admin: 10/12/18 08:56 Dose: 500 mg Albuterol Sulfate (Albuterol 0.083% Inhal Caridad (2.5 Mg/3 Ml) Ud) 2.5 mg INH RQ4 PRN PRN Reason: Shortness of Breath Last Admin: 10/12/18 04:11 Dose: 2.5 mg Albuterol/Ipratropium (Duoneb 3 Mg/0.5 Mg (3 Ml) Ud) 3 ml INH RQID DENISSE Last Admin: 10/12/18 19:23 Dose: 3 ml Alprazolam (Xanax) 0.25 mg PO Q8 PRN PRN Reason: Anxiety Stop: 10/16/18 06:21 Last Admin: 10/11/18 13:04 Dose: 0.25 mg Atorvastatin Calcium (Lipitor) 10 mg PO HS [facility] Last Admin: 10/10/18 21:15 Dose: 10 mg Clotrimazole (Mycelex Bev) 10 mg MT 5XD [facility] Enoxaparin Sodium (Lovenox) 40 mg SC DAILY [facility]; Protocol Last Admin: 10/12/18 10:23 Dose: 40 mg Fluticasone Propionate (Flonase) 1 spr KIRBY BID PRN PRN Reason: Nasal congestion Last Admin: 10/12/18 08:55 Dose: 1 spr Home Med (Cetirizine Hcl [Wal-Zyr]) 5 mg PO Q12 [facility] Last Admin: 10/12/18 08:56 Dose: 5 mg Home Med (Home Med) 1 unit PO DAILY [facility] Last Admin: 10/12/18 08:55 Dose: 1 unit Oxycodone/Acetaminophen (Percocet 5/325 Mg Tab) 1 tab PO Q6 PRN PRN Reason: Pain, severe (8-10) Stop: 10/15/18 07:55 Last Admin: 10/12/18 18:23 Dose: 1 tab Pantoprazole Sodium (Protonix Ec Tab) 40 mg PO DAILY [facility] Last Admin: 10/12/18 08:56 Dose: 40 mg Prednisone (Prednisone Tab) 30 mg PO DAILY [facility] Stop: 10/12/18 23:59 Last Admin: 10/12/18 10:00 Dose: 30 mg Prednisone (Prednisone Tab) 25 mg PO ONCE ONE Stop: 10/13/18 09:01 Promethazine HCl/Dextromethorphan (Phenergan Dm Syrup) 5 ml PO Q8 PRN PRN Reason: Cough Last Admin: 10/12/18 08:57 Dose: 5 ml Simethicone (Mylicon Chew Tab) 80 mg PO Q8 PRN PRN Reason: GI distress Last Admin: 10/12/18 08:57 Dose: 80 mg - Labs Labs: 10/12/18 05:45 10/12/18 05:45 PT 10.2 Seconds (9.8-13.1) 10/07/18 16:45 INR 0.9 10/07/18 16:45 APTT 24.9 Seconds (25.6-37.1) L 10/07/18 16:45 - Constitutional Appears: No Acute Distress - Head Exam Head Exam: ATRAUMATIC - Eye Exam Eye Exam: absent: Scleral icterus - ENT Exam ENT Exam: Mucous Membranes Moist - Neck Exam Neck Exam: absent: Meningismus - Respiratory Exam Respiratory Exam: absent: Rales, Rhonchi, Wheezes, Respiratory Distress - Cardiovascular Exam Cardiovascular Exam: REGULAR RHYTHM, +S1, +S2 - GI/Abdominal Exam GI & Abdominal Exam: Soft. absent: Tenderness - Rectal Exam Rectal Exam: Deferred - Neurological Exam Neurological Exam: Alert, Oriented x3 - Psychiatric Exam Psychiatric exam: Normal Affect - Skin Skin Exam: Dry, Intact Assessment and Plan - Assessment and Plan (Free Text) Assessment: 58 yo female with history of advanced stage Lymphangioleiomyomatosis, COPD, anxiety and depression admitted initially for COPD exacerbation. She was discharged to TCU for therapy because of generalized weakness and continuation of management of COPD. At present on BIPAp , states that does not feel well due to persistent dyspnea at rest 1. Advanced COPD/Lymphangioleiomyomatosis with chronic hypercapneic respiratory failure pulmonary on consult following and managing continue Bipap use ordered Sirolimus as per pulmonary to be started when received by pharmacy 2. Chronic Pain syndrome continue pain management with Percocet and Toradol continue PT 3. Anxiety Continue 0.25 Q8hr PRN 4. DVT Prophylaxis on Lovenox
[2018-10-12] MEDS ORDERED: Nystatin 100,000 Units/ml Oral Susp 5 ml UD PO SCH ×2 (22:00)
[2018-10-13] MEDS: Albuterol 0.083% Inhal Sol (2.5 mg/3 mL) UD INH PRN (00:10)
[2018-10-13] MEDS: Oxycodone/Acetaminophen 5/325 mg Tab PO PRN ×4 (00:32→20:28)
[2018-10-13] MEDS: Albuterol-Ipratrop 3 mg / 0.5 (3 ml) UD INH SCH ×4 (07:27→20:02)
[2018-10-13] MEDS: CETIRIZINE HCL 5 MG PO SCH ×3 (08:01→21:29)
[2018-10-13] MEDS: acetaZOLAMIDE 500 mg SR Cap PO SCH (08:01)
[2018-10-13] MEDS: Enoxaparin 40 mg Syringe SC SCH (08:01)
[2018-10-13] MEDS: Pantoprazole 40 mg EC Tab PO SCH (08:02)
--- NOTE | 2018-10-13 09:27 | CP.PCM.PN ---
Subjective - Date & Time of Evaluation Date of Evaluation: 10/13/18 Time of Evaluation: 09:27 - Subjective Subjective: Appears to be doing relatively well on the current regimen. Sirolimus 2 mg tablets one daily have been started without ill effect. Prednisone has been tapered by 5 mg daily. Continue current regimen, continue subacute rehabilitation. Requires blood level for sirolimus in 2 weeks' time, and dosage readjustment if needed.. Objective - Vital Signs/Intake and Output Vital Signs (last 24 hours): Temp Pulse Resp BP Pulse Ox 97.9 F 86 20 135/78 98 10/13/18 07:47 10/13/18 07:47 10/13/18 07:47 10/13/18 07:47 10/13/18 07:47 - Medications Medications: Current Medications Acetaminophen (Tylenol 325mg Tab) 650 mg PO Q6 PRN PRN Reason: Pain, Mild (1-3) Acetazolamide (Diamox Sequels 500 Mg Sr Cap) 500 mg PO DAILY [facility] Last Admin: 10/13/18 08:01 Dose: 500 mg Albuterol Sulfate (Albuterol 0.083% Inhal Caridad (2.5 Mg/3 Ml) Ud) 2.5 mg INH RQ4 PRN PRN Reason: Shortness of Breath Last Admin: 10/13/18 00:10 Dose: 2.5 mg Albuterol/Ipratropium (Duoneb 3 Mg/0.5 Mg (3 Ml) Ud) 3 ml INH RQID DENISSE Last Admin: 10/13/18 07:27 Dose: 3 ml Alprazolam (Xanax) 0.25 mg PO Q8 PRN PRN Reason: Anxiety Stop: 10/16/18 06:21 Last Admin: 10/11/18 13:04 Dose: 0.25 mg Atorvastatin Calcium (Lipitor) 10 mg PO HS [facility] Last Admin: 10/12/18 21:06 Dose: 10 mg Clotrimazole (Mycelex Bev) 10 mg MT 5XD PRN PRN Reason: Sore Throat Enoxaparin Sodium (Lovenox) 40 mg SC DAILY [facility]; Protocol Last Admin: 10/13/18 08:01 Dose: 40 mg Fluticasone Propionate (Flonase) 1 spr KIRBY BID PRN PRN Reason: Nasal congestion Last Admin: 10/12/18 08:55 Dose: 1 spr Home Med (Cetirizine Hcl [Wal-Zyr]) 5 mg PO Q12 [facility] Last Admin: 10/13/18 08:16 Dose: Not Given Home Med (Patient's Own Medication) 1 unit PO DAILY [facility] Ondansetron HCl (Zofran Odt) 8 mg PO STAT [facility] Stop: 10/13/18 09:27 Oxycodone/Acetaminophen (Percocet 5/325 Mg Tab) 1 tab PO Q6 PRN PRN Reason: Pain, severe (8-10) Stop: 10/15/18 07:55 Last Admin: 10/13/18 08:00 Dose: 1 tab Pantoprazole Sodium (Protonix Ec Tab) 40 mg PO DAILY [facility] Last Admin: 10/13/18 08:02 Dose: 40 mg Prednisone (Prednisone Tab) 20 mg PO DAILY [facility] Promethazine HCl/Dextromethorphan (Phenergan Dm Syrup) 5 ml PO Q8 PRN PRN Reason: Cough Last Admin: 10/12/18 08:57 Dose: 5 ml Simethicone (Mylicon Chew Tab) 80 mg PO Q8 PRN PRN Reason: GI distress Last Admin: 10/12/18 08:57 Dose: 80 mg - Labs Labs: 10/12/18 05:45 10/12/18 05:45 PT 10.2 Seconds (9.8-13.1) 10/07/18 16:45 INR 0.9 10/07/18 16:45 APTT 24.9 Seconds (25.6-37.1) L 10/07/18 16:45 Assessment and Plan (1) Chronic hypercapnic respiratory failure Status: Chronic (2) COPD (chronic obstructive pulmonary disease) Status: Chronic (3) Lymphangioleiomyomatosis Status: Chronic
[2018-10-13] MEDS: SIROLIMUS 2 MG PO SCH (09:47)
[2018-10-13] MEDS: Promethazine DM 6.25 mg-15 mg/5 ml Syrup PO PRN (22:09)
[2018-10-14] MEDS: Oxycodone/Acetaminophen 5/325 mg Tab PO PRN ×3 (02:59→16:42)
[2018-10-14] MEDS: Albuterol 0.083% Inhal Sol (2.5 mg/3 mL) UD INH PRN (06:29)
[2018-10-14] MEDS: Albuterol-Ipratrop 3 mg / 0.5 (3 ml) UD INH SCH ×4 (07:14→19:48)
[2018-10-14] MEDS: Pantoprazole 40 mg EC Tab PO SCH (09:19)
[2018-10-14] MEDS: CETIRIZINE HCL 5 MG PO SCH (09:19)
[2018-10-14] MEDS: acetaZOLAMIDE 500 mg SR Cap PO SCH (09:19)
[2018-10-14] MEDS: Enoxaparin 40 mg Syringe SC SCH (09:20)
[2018-10-14] MEDS: SIROLIMUS 2 MG PO SCH (10:27)
--- NOTE | 2018-10-14 14:32 | CP.PCM.PN ---
Subjective - Date & Time of Evaluation Date of Evaluation: 10/14/18 Time of Evaluation: 14:32 - Subjective Subjective: Increased lethargy noted today. Speech is clear, but low volume. No c/o pain or change in respiratory status. Dependqant edema ++ bilaterally, no cyanosis. ABG requested, to be placed back on BiPAP afterwards. Objective - Vital Signs/Intake and Output Vital Signs (last 24 hours): Temp Pulse Resp BP Pulse Ox 98.6 F 103 H 16 125/72 100 10/14/18 14:22 10/14/18 14:22 10/14/18 14:22 10/14/18 14:22 10/14/18 14:22 - Medications Medications: Current Medications Acetaminophen (Tylenol 325mg Tab) 650 mg PO Q6 PRN PRN Reason: Pain, Mild (1-3) Acetazolamide (Diamox Sequels 500 Mg Sr Cap) 500 mg PO DAILY [facility] Last Admin: 10/14/18 09:19 Dose: 500 mg Albuterol Sulfate (Albuterol 0.083% Inhal Caridad (2.5 Mg/3 Ml) Ud) 2.5 mg INH RQ4 PRN PRN Reason: Shortness of Breath Last Admin: 10/14/18 06:29 Dose: 2.5 mg Albuterol/Ipratropium (Duoneb 3 Mg/0.5 Mg (3 Ml) Ud) 3 ml INH RQID [facility] Last Admin: 10/14/18 11:44 Dose: 3 ml Alprazolam (Xanax) 0.25 mg PO Q8 PRN PRN Reason: Anxiety Stop: 10/16/18 06:21 Last Admin: 10/13/18 22:11 Dose: 0.25 mg Atorvastatin Calcium (Lipitor) 10 mg PO HS [facility] Last Admin: 10/13/18 21:29 Dose: 10 mg Clotrimazole (Mycelex Bev) 10 mg MT 5XD PRN PRN Reason: Sore Throat Enoxaparin Sodium (Lovenox) 40 mg SC DAILY [facility]; Protocol Last Admin: 10/14/18 09:20 Dose: 40 mg Fluticasone Propionate (Flonase) 1 spr KIRBY BID PRN PRN Reason: Nasal congestion Last Admin: 10/13/18 22:09 Dose: 1 spr Home Med (Patient's Own Medication) 1 unit PO DAILY [facility] Last Admin: 10/14/18 10:27 Dose: 1 unit Home Med (Cetirizine Hcl [Wal-Zyr]) 5 mg PO Q12 PRN PRN Reason: Allergy symptoms Ondansetron HCl (Zofran Odt) 4 mg PO Q8H PRN PRN Reason: Nausea/Vomiting Last Admin: 10/14/18 09:19 Dose: 4 mg Oxycodone/Acetaminophen (Percocet 5/325 Mg Tab) 1 tab PO Q6 PRN PRN Reason: Pain, severe (8-10) Stop: 10/15/18 07:55 Last Admin: 10/14/18 09:18 Dose: 1 tab Pantoprazole Sodium (Protonix Ec Tab) 40 mg PO DAILY [facility] Last Admin: 10/14/18 09:19 Dose: 40 mg Prednisone (Prednisone Tab) 20 mg PO DAILY [facility] Last Admin: 10/14/18 09:19 Dose: 20 mg Promethazine HCl/Dextromethorphan (Phenergan Dm Syrup) 5 ml PO Q8 PRN PRN Reason: Cough Last Admin: 10/13/18 22:09 Dose: 5 ml Simethicone (Mylicon Chew Tab) 80 mg PO Q8 PRN PRN Reason: GI distress Last Admin: 10/12/18 08:57 Dose: 80 mg - Labs Labs: 10/12/18 05:45 10/12/18 05:45 PT 10.2 Seconds (9.8-13.1) 10/07/18 16:45 INR 0.9 10/07/18 16:45 APTT 24.9 Seconds (25.6-37.1) L 10/07/18 16:45 Assessment and Plan (1) Chronic hypercapnic respiratory failure Status: Chronic (2) COPD (chronic obstructive pulmonary disease) Status: Chronic (3) Lymphangioleiomyomatosis Status: Chronic
[2018-10-14 14:53] LABS: ABG ALLEN TEST YES; ARTERIAL BLOOD GAS HCO3 39.7 mmol/L (21-28); ARTERIAL BLOOD GAS HEMOGLOBIN 13.4 g/dL (11.7-17.4); ARTERIAL BLOOD GAS O2 CAPACITY 18.5 mL/dL (16-24); ARTERIAL BLOOD GAS O2 CONTENT 18.6 ML/dL (15-23); ARTERIAL BLOOD GAS O2 SAT 100.3 % (95-98); ARTERIAL BLOOD GAS PCO2 103 mm/Hg (35-45); ARTERIAL BLOOD GAS PO2 199 mm/Hg (80-100); ARTERIAL BLOOD GAS TCO2 53.9 mmol/L (22-28)
--- NOTE | 2018-10-14 16:44 | CP.PCM.PN ---
Subjective - Date & Time of Evaluation Date of Evaluation: 10/14/18 Time of Evaluation: 16:30 - Subjective Subjective: Patient seen and examined. Placed on Bipap since appeared lethargic with very high PCO2. When asked how she was doing she wrote on a paper "tired" but claimed a little better after placed on Bipap for 30 minutes. Objective - Vital Signs/Intake and Output Vital Signs (last 24 hours): Temp Pulse Resp BP Pulse Ox 98.6 F 98 H 16 125/72 100 10/14/18 14:22 10/14/18 14:59 10/14/18 14:22 10/14/18 14:22 10/14/18 14:22 - Medications Medications: Current Medications Acetaminophen (Tylenol 325mg Tab) 650 mg PO Q6 PRN PRN Reason: Pain, Mild (1-3) Acetazolamide (Diamox Sequels 500 Mg Sr Cap) 500 mg PO DAILY [facility] Last Admin: 10/14/18 09:19 Dose: 500 mg Albuterol Sulfate (Albuterol 0.083% Inhal Caridad (2.5 Mg/3 Ml) Ud) 2.5 mg INH RQ4 PRN PRN Reason: Shortness of Breath Last Admin: 10/14/18 06:29 Dose: 2.5 mg Albuterol/Ipratropium (Duoneb 3 Mg/0.5 Mg (3 Ml) Ud) 3 ml INH RQID [facility] Last Admin: 10/14/18 16:33 Dose: 3 ml Alprazolam (Xanax) 0.25 mg PO Q8 PRN PRN Reason: Anxiety Stop: 10/16/18 06:21 Last Admin: 10/13/18 22:11 Dose: 0.25 mg Atorvastatin Calcium (Lipitor) 10 mg PO HS [facility] Last Admin: 10/13/18 21:29 Dose: 10 mg Clotrimazole (Mycelex Bev) 10 mg MT 5XD PRN PRN Reason: Sore Throat Enoxaparin Sodium (Lovenox) 40 mg SC DAILY [facility]; Protocol Last Admin: 10/14/18 09:20 Dose: 40 mg Fluticasone Propionate (Flonase) 1 spr KIRBY BID PRN PRN Reason: Nasal congestion Last Admin: 10/13/18 22:09 Dose: 1 spr Home Med (Patient's Own Medication) 1 unit PO DAILY [facility] Last Admin: 10/14/18 10:27 Dose: 1 unit Home Med (Cetirizine Hcl [Wal-Zyr]) 5 mg PO Q12 PRN PRN Reason: Allergy symptoms Ondansetron HCl (Zofran Odt) 4 mg PO Q8H PRN PRN Reason: Nausea/Vomiting Last Admin: 10/14/18 09:19 Dose: 4 mg Oxycodone/Acetaminophen (Percocet 5/325 Mg Tab) 1 tab PO Q6 PRN PRN Reason: Pain, severe (8-10) Stop: 10/15/18 07:55 Last Admin: 10/14/18 09:18 Dose: 1 tab Pantoprazole Sodium (Protonix Ec Tab) 40 mg PO DAILY [facility] Last Admin: 10/14/18 09:19 Dose: 40 mg Prednisone (Prednisone Tab) 20 mg PO DAILY [facility] Last Admin: 10/14/18 09:19 Dose: 20 mg Promethazine HCl/Dextromethorphan (Phenergan Dm Syrup) 5 ml PO Q8 PRN PRN Reason: Cough Last Admin: 10/13/18 22:09 Dose: 5 ml Simethicone (Mylicon Chew Tab) 80 mg PO Q8 PRN PRN Reason: GI distress Last Admin: 10/12/18 08:57 Dose: 80 mg - Labs Labs: 10/12/18 05:45 10/12/18 05:45 PT 10.2 Seconds (9.8-13.1) 10/07/18 16:45 INR 0.9 10/07/18 16:45 APTT 24.9 Seconds (25.6-37.1) L 10/07/18 16:45 - Constitutional Appears: Other (lethargic) - Head Exam Head Exam: ATRAUMATIC - Respiratory Exam Respiratory Exam: Decreased Breath Sounds - Cardiovascular Exam Cardiovascular Exam: REGULAR RHYTHM, +S1, +S2 - Extremities Exam Extremities Exam: Pedal Edema - Neurological Exam Neurological Exam: Alert - Psychiatric Exam Psychiatric exam: Normal Affect - Skin Skin Exam: Dry, Intact
[2018-10-14] MEDS ORDERED: methylPREDNISolone 125 MG in Sodium Chloride 0.9% 50 ML IVPB ONE (17:10)
[2018-10-14 17:40] LABS: ABG ALLEN TEST YES; ARTERIAL BLOOD GAS HEMOGLOBIN 13.5 g/dL (11.7-17.4); ARTERIAL BLOOD GAS O2 CONTENT 18.1 ML/dL (15-23); ARTERIAL BLOOD GAS O2 SAT 100.4 % (95-98); ARTERIAL BLOOD GAS PCO2 93 mm/Hg (35-45); ARTERIAL BLOOD GAS PH 7.33 (7.35-7.45); ARTERIAL BLOOD GAS PO2 102 mm/Hg (80-100); ARTERIAL BLOOD GAS TCO2 51.9 mmol/L (22-28)
[2018-10-14] MEDS: Promethazine DM 6.25 mg-15 mg/5 ml Syrup PO PRN (22:31)
[2018-10-15] MEDS: Oxycodone/Acetaminophen 5/325 mg Tab PO PRN ×3 (00:11→16:00)
[2018-10-15] MEDS: Albuterol 0.083% Inhal Sol (2.5 mg/3 mL) UD INH PRN ×2 (00:17→04:53)
[2018-10-15] MEDS: Albuterol-Ipratrop 3 mg / 0.5 (3 ml) UD INH SCH ×4 (07:53→19:01)
[2018-10-15] MEDS: acetaZOLAMIDE 500 mg SR Cap PO SCH ×2 (08:24→22:26)
[2018-10-15] MEDS: SIROLIMUS 2 MG PO SCH (08:24)
[2018-10-15] MEDS: Pantoprazole 40 mg EC Tab PO SCH (08:24)
[2018-10-15] MEDS: Enoxaparin 40 mg Syringe SC SCH (08:25)
[2018-10-15] MEDS: Promethazine DM 6.25 mg-15 mg/5 ml Syrup PO PRN (08:47)
[2018-10-15] MEDS: CETIRIZINE HCL 5 MG PO PRN (17:54)
[2018-10-16] MEDS: Albuterol 0.083% Inhal Sol (2.5 mg/3 mL) UD INH PRN ×2 (01:51→23:47)
[2018-10-16] MEDS: Oxycodone/Acetaminophen 5/325 mg Tab PO PRN ×3 (02:17→16:04)
[2018-10-16 06:21] LABS: HEMOGLOBIN 12.1 g/dL (12.0-16.0); MEAN CELL VOLUME 90.9 fl (81.0-99.0); MEAN CORPUSCULAR HEMOGLOBIN 28.3 pg (27.0-31.0); MEAN CORPUSCULAR HGB CONC 31.2 g/dL (33.0-37.0); RBC 4.29 Mil/uL (3.80-5.20); RED CELL DISTRIBUTION WIDTH 14.9 % (11.5-14.5); WHITE BLOOD COUNT 9.5 K/uL (4.8-10.8)
[2018-10-16 06:33] LABS: ALB/GLOB RATIO 1.2 (1.0-2.1); ALBUMIN 3.2 g/dL (3.5-5.0); ALT/SGPT 64 U/L (9-52); AST/SGOT 28 U/L (14-36); BLOOD UREA NITROGEN 24 mg/dl (7-17); GFR NON-AFRICAN AMERICAN > 60; HDL CHOLESTEROL 96 MG/DL (30-70)
[2018-10-16 06:44] LABS: LDL CHOLESTEROL 114 mg/dL (0-129)
[2018-10-16] MEDS: Albuterol-Ipratrop 3 mg / 0.5 (3 ml) UD INH SCH ×4 (07:09→19:32)
[2018-10-16] MEDS: Enoxaparin 40 mg Syringe SC SCH (09:12)
[2018-10-16] MEDS: acetaZOLAMIDE 500 mg SR Cap PO SCH ×2 (09:13→21:05)
[2018-10-16] MEDS: Pantoprazole 40 mg EC Tab PO SCH (09:14)
[2018-10-16] MEDS: SIROLIMUS 2 MG PO SCH (09:14)
--- NOTE | 2018-10-16 09:21 | CP.PCM.PN ---
Subjective - Date & Time of Evaluation Date of Evaluation: 10/16/18 Time of Evaluation: 09:21 - Subjective Subjective: Improved with increased use of NPPV. Encouraged to use it every night for sleep and during daytime inactive periods. Diamox has also been increased to 500MG BID. Does need further BRANDEN time. Objective - Vital Signs/Intake and Output Vital Signs (last 24 hours): Temp Pulse Resp BP Pulse Ox 97.8 F 98 H 18 138/83 99 10/16/18 08:14 10/16/18 08:14 10/16/18 08:14 10/16/18 08:14 10/16/18 08:14 - Medications Medications: Current Medications Acetaminophen (Tylenol 325mg Tab) 650 mg PO Q6 PRN PRN Reason: Pain, Mild (1-3) Acetazolamide (Diamox Sequels 500 Mg Sr Cap) 500 mg PO Q12 DENISSE Last Admin: 10/16/18 09:13 Dose: 500 mg Albuterol Sulfate (Albuterol 0.083% Inhal Caridad (2.5 Mg/3 Ml) Ud) 2.5 mg INH RQ4 PRN PRN Reason: Shortness of Breath Last Admin: 10/16/18 01:51 Dose: 2.5 mg Albuterol/Ipratropium (Duoneb 3 Mg/0.5 Mg (3 Ml) Ud) 3 ml INH RQID DENISSE Last Admin: 10/16/18 07:09 Dose: 3 ml Atorvastatin Calcium (Lipitor) 10 mg PO HS DENISSE Last Admin: 10/15/18 21:49 Dose: 10 mg Clotrimazole (Mycelex Bev) 10 mg MT 5XD PRN PRN Reason: Sore Throat Last Admin: 10/14/18 21:40 Dose: 10 mg Enoxaparin Sodium (Lovenox) 40 mg SC DAILY [facility]; Protocol Last Admin: 10/16/18 09:12 Dose: 40 mg Fluticasone Propionate (Flonase) 1 spr KIRBY BID PRN PRN Reason: Nasal congestion Last Admin: 10/14/18 21:37 Dose: 1 spr Home Med (Patient's Own Medication) 1 unit PO DAILY DENISSE Last Admin: 10/16/18 09:14 Dose: 1 unit Home Med (Cetirizine Hcl [Wal-Zyr]) 5 mg PO Q12 PRN PRN Reason: Allergy symptoms Last Admin: 10/15/18 17:54 Dose: 5 mg Ondansetron HCl (Zofran Odt) 4 mg PO Q8H PRN PRN Reason: Nausea/Vomiting Last Admin: 10/15/18 10:04 Dose: 4 mg Oxycodone/Acetaminophen (Percocet 5/325 Mg Tab) 1 tab PO Q6 PRN PRN Reason: Pain, severe (8-10) Stop: 10/18/18 09:46 Last Admin: 10/16/18 09:12 Dose: 1 tab Pantoprazole Sodium (Protonix Ec Tab) 40 mg PO DAILY DENISSE Last Admin: 10/16/18 09:14 Dose: 40 mg Prednisone (Prednisone Tab) 20 mg PO DAILY [facility] Last Admin: 10/16/18 09:14 Dose: 20 mg Promethazine HCl/Dextromethorphan (Phenergan Dm Syrup) 5 ml PO Q8 PRN PRN Reason: Cough Last Admin: 10/15/18 08:47 Dose: 5 ml Simethicone (Mylicon Chew Tab) 80 mg PO Q8 PRN PRN Reason: GI distress Last Admin: 10/12/18 08:57 Dose: 80 mg - Labs Labs: 10/16/18 05:45 10/16/18 05:45 PT 10.2 Seconds (9.8-13.1) 10/07/18 16:45 INR 0.9 10/07/18 16:45 APTT 24.9 Seconds (25.6-37.1) L 10/07/18 16:45 Assessment and Plan (1) Chronic hypercapnic respiratory failure Status: Chronic (2) COPD (chronic obstructive pulmonary disease) Status: Chronic (3) Lymphangioleiomyomatosis Status: Chronic
[2018-10-16 16:18] VITALS: RESP 20
[2018-10-17] MEDS: Oxycodone/Acetaminophen 5/325 mg Tab PO PRN ×3 (00:09→19:35)
[2018-10-17] MEDS: Albuterol 0.083% Inhal Sol (2.5 mg/3 mL) UD INH PRN ×2 (03:58→23:25)
[2018-10-17] MEDS: SIROLIMUS 2 MG PO SCH (08:29)
[2018-10-17] MEDS: Pantoprazole 40 mg EC Tab PO SCH (08:29)
[2018-10-17] MEDS: acetaZOLAMIDE 500 mg SR Cap PO SCH ×2 (08:29→21:10)
[2018-10-17] MEDS: Enoxaparin 40 mg Syringe SC SCH (08:29)
[2018-10-17] MEDS: Albuterol-Ipratrop 3 mg / 0.5 (3 ml) UD INH SCH ×4 (08:43→19:26)
--- NOTE | 2018-10-17 11:04 | CP.PCM.PN ---
Subjective - Date & Time of Evaluation Date of Evaluation: 10/17/18 Time of Evaluation: 11:00 - Subjective Subjective: 58 year old female with PMHx of COPD, JIMENEZ (lymphangioleiomyomatosis), endometriosis, depression and chronic fatigue syndrome was sent from TCU to the ED due to complaints of shortness of breath, weakness and dizziness. Patient recently admitted to the hospital on 09/27/18 for the same complaints and was then transferred to TCU. Patient states that at home, she is on Oxygen and uses nebulizer. Patient denies fever, nausea, vomiting, chest pain, urinary complaints, abdominal pain PMD: Dr Cardona Department Of Mathematics Chair: Dr. Itneriano. ED Course: F/UCBC/CMP/Mg/Phos/BNP F/U ABG F/U Troponin F/U Blood Cultures DuoNeb 3 ml SoluMedrol 125 mg IV STAT CXR/EKG- Pending Started on BiPaP Objective - Vital Signs/Intake and Output Vital Signs (last 24 hours): Temp Pulse Resp BP Pulse Ox 98.4 F 92 H 20 136/80 94 L 10/16/18 19:41 10/17/18 08:43 10/16/18 19:41 10/16/18 19:41 10/16/18 19:41 - Labs Labs: 10/16/18 05:45 10/16/18 05:45 PT 10.2 Seconds (9.8-13.1) 10/07/18 16:45 INR 0.9 10/07/18 16:45 APTT 24.9 Seconds (25.6-37.1) L 10/07/18 16:45 - Constitutional Appears: Well, Non-toxic, In Acute Distress - Head Exam Head Exam: ATRAUMATIC, NORMOCEPHALIC - Eye Exam Eye Exam: Normal appearance, PERRL - ENT Exam ENT Exam: Mucous Membranes Moist - Respiratory Exam Respiratory Exam: Decreased Breath Sounds, Wheezes - Cardiovascular Exam Cardiovascular Exam: REGULAR RHYTHM, +S1, +S2 - GI/Abdominal Exam GI & Abdominal Exam: Soft, Normal Bowel Sounds - Extremities Exam Extremities Exam: absent: Pedal Edema - Neurological Exam Neurological Exam: Alert, Awake, Oriented x3 - Psychiatric Exam Psychiatric exam: Normal Affect, Normal Mood Assessment and Plan - Assessment and Plan (Free Text) Assessment: 58 year old female with PMH of significant for advanced stage COPD/Lymphangioleiomyomatosis, obesity, Chronic pain syndrome, anxiety admitted for evaluation and management of recurring dyspnea and weakness. Patient sent from TCU, and recently admitted for the same complaint. Patient will be sent from ED back to TCU Plan: Advanced COPD/Lymphangioleiomyomatosis -acute exacerbation of COPD, symptoms improved in ED, patient return to TCU for continued management - F/u labs, CXR, EKG
[2018-10-17] MEDS: CETIRIZINE HCL 5 MG PO PRN (18:33)
[2018-10-17] MEDS: Promethazine DM 6.25 mg-15 mg/5 ml Syrup PO PRN (22:06)
[2018-10-18] MEDS: Albuterol 0.083% Inhal Sol (2.5 mg/3 mL) UD INH PRN (03:06)
[2018-10-18] MEDS: Oxycodone/Acetaminophen 5/325 mg Tab PO PRN (05:40)
[2018-10-18] MEDS: Albuterol-Ipratrop 3 mg / 0.5 (3 ml) UD INH SCH (07:09)
[2018-10-18] MEDS: Enoxaparin 40 mg Syringe SC SCH (09:00)
[2018-10-18] MEDS: CETIRIZINE HCL 5 MG PO PRN (09:01)
[2018-10-18] MEDS: SIROLIMUS 2 MG PO SCH (09:01)
[2018-10-18] MEDS: Pantoprazole 40 mg EC Tab PO SCH (09:01)
[2018-10-18] MEDS: acetaZOLAMIDE 500 mg SR Cap PO SCH (09:07)
--- NOTE | 2018-10-18 09:59 | CP.PCM.DIS ---
Provider - Provider Date of Admission: 10/02/18 21:11 Attending physician: Colleen Youssef DO Consults: 10/02/18 22:22 Pulmonology Consult Routine Comment: Consulting Provider: Randy Interiano Consulting Physician: Randy Interiano Reason for Consult: acute Resp distress Time Spent in preparation of Discharge (in minutes): 25 Diagnosis - Discharge Diagnosis (1) Lymphangioleiomyomatosis Status: Chronic Priority: High Comment: continue Prednisone and Sirolimus (2) Acute on chronic respiratory failure with hypercapnia Status: Acute Comment: continue BIPAP at home (3) Chronic pain syndrome Status: Acute Comment: Tylenol 325 mg PO q 6hrs prn for mild pain. Percocet 5/325 1 tab PO q 6hrs prn for severe pain Hospital Course - Lab Results Lab Results: Most Recent Lab Values WBC 9.5 K/uL (4.8-10.8) 10/16/18 05:45 RBC 4.29 Mil/uL (3.80-5.20) 10/16/18 05:45 Hgb 12.1 g/dL (12.0-16.0) 10/16/18 05:45 Hct 39.0 % (34.0-47.0) 10/16/18 05:45 MCV 90.9 fl (81.0-99.0) D 10/16/18 05:45 MCH 28.3 pg (27.0-31.0) 10/16/18 05:45 MCHC 31.2 g/dL (33.0-37.0) L 10/16/18 05:45 RDW 14.9 % (11.5-14.5) H 10/16/18 05:45 Plt Count 291 K/uL (130-400) 10/16/18 05:45 PT 10.2 Seconds (9.8-13.1) 10/07/18 16:45 INR 0.9 10/07/18 16:45 APTT 24.9 Seconds (25.6-37.1) L 10/07/18 16:45 pCO2 93 mm/Hg (35-45) H* 10/14/18 17:29 pO2 102 mm/Hg (80-100) H 10/14/18 17:29 HCO3 39.0 mmol/L (21-28) H 10/14/18 17:29 ABG pH 7.33 (7.35-7.45) L 10/14/18 17:29 ABG Total CO2 51.9 mmol/L (22-28) H 10/14/18 17:29 ABG O2 Saturation 100.4 % (95-98) H 10/14/18 17:29 ABG O2 Content 18.1 ML/dL (15-23) 10/14/18 17:29 ABG Base Excess 18.1 mmol/L (-2.0-3.0) H 10/14/18 17:29 ABG Hemoglobin 13.5 g/dL (11.7-17.4) 10/14/18 17:29 ABG Carboxyhemoglobin 2.7 % (0.5-1.5) H 10/14/18 17:29 POC ABG HHb (Measured) -0.4 % (0.0-5.0) L 10/14/18 17:29 ABG Methemoglobin 2.7 % (0.0-3.0) 10/14/18 17:29 ABG O2 Capacity 18.0 mL/dL (16-24) 10/14/18 17:29 Contreras Test Yes 10/14/18 17:29 A-a O2 Difference -4.0 mm/Hg 10/14/18 17:29 Hgb O2 Saturation 95.0 % (95.0-98.0) 10/14/18 17:29 Liter Flow 4 10/14/18 14:31 Vent Mode Bipap 10/14/18 17:29 Mechanical Rate 16 10/14/18 17:29 FiO2 30.0 % 10/14/18 17:29 Inspiratory BiPAP 10 10/14/18 17:29 Expiratory BiPAP 5 10/14/18 17:29 Blood Gas Comments Nc 3 lpm / sm 4 lpm 10/14/18 14:31 Crit Value Called To Herberth felton 10/14/18 17:29 Crit Value Called By Joseline moody 10/14/18 17:29 Crit Value Read Back Y 10/14/18 17:29 Blood Gas Notified Time 9325 10/14/18 17:29 Sodium 141 mmol/l (132-148) 10/16/18 05:45 Potassium 3.6 MMOL/L (3.6-5.0) 10/16/18 05:45 Chloride 97 mmol/L (98-107) L 10/16/18 05:45 Carbon Dioxide 40 mmol/L (22-30) H* 10/16/18 05:45 Anion Gap 8 (10-20) L 10/16/18 05:45 BUN 24 mg/dl (7-17) H 10/16/18 05:45 Creatinine 0.6 mg/dl (0.7-1.2) L 10/16/18 05:45 Est GFR ( Amer) > 60 10/16/18 05:45 Est GFR (Non-Af Amer) > 60 10/16/18 05:45 POC Glucose (mg/dL) 114 mg/dL (65-110) H 10/14/18 13:12 Random Glucose 99 mg/dL (65-105) 10/16/18 05:45 Calcium 9.0 mg/dL (8.4-10.2) 10/16/18 05:45 Phosphorus 3.9 mg/dl (2.5-4.5) 10/12/18 05:45 Magnesium 2.1 MG/DL (1.6-2.3) 10/12/18 05:45 Total Bilirubin 0.4 mg/dl (0.2-1.3) 10/16/18 05:45 AST 28 U/L (14-36) 10/16/18 05:45 ALT 64 U/L (9-52) H 10/16/18 05:45 Alkaline Phosphatase 64 U/L (38-126) 10/16/18 05:45 Total Protein 5.9 G/DL (6.3-8.2) L 10/16/18 05:45 Albumin 3.2 g/dL (3.5-5.0) L 10/16/18 05:45 Globulin 2.7 gm/dL (2.2-3.9) 10/16/18 05:45 Albumin/Globulin Ratio 1.2 (1.0-2.1) 10/16/18 05:45 [id number] 124 mg/dL (83-199) 10/12/18 11:01 Triglycerides 112 mg/DL (0-149) D 10/16/18 05:45 Cholesterol 217 mg/dL (0-199) H 10/16/18 05:45 LDL Cholesterol Direct 114 mg/dL (0-129) 10/16/18 05:45 HDL Cholesterol 96 MG/DL (30-70) H 10/16/18 05:45 - Hospital Course Hospital Course: 58 yo female with history of Lymphagioleiomyomatosis, COPD and Depression admitted for COPD exacerbation and Acute on Chronic Hypercapneic Respiratory Failure was transferred to TCU for management of generalized weakness and continued management of COPD. Patient was managed with BIPAP, steroid and bromchodilator and did well. Her condition also improved with therapy and now is ready for discharge to home. BRANDEN was suggested because of her condition but patient refused and would rather go home. Discharge Exam - Head Exam Head Exam: ATRAUMATIC, NORMOCEPHALIC - Eye Exam Eye Exam: absent: Scleral icterus - ENT Exam ENT Exam: Mucous Membranes Moist - Respiratory Exam Respiratory Exam: Decreased Breath Sounds. absent: Wheezes - Cardiovascular Exam Cardiovascular Exam: REGULAR RHYTHM, +S1, +S2 - GI/Abdominal Exam GI & Abdominal Exam: Soft. absent: Tenderness - Rectal Exam Rectal Exam: Deferred - Neurological Exam Neurological exam: Alert, Oriented x3 - Psychiatric Exam Psychiatric exam: Normal Affect - Skin Skin Exam: Dry Discharge Plan - Discharge Medications Prescriptions: acetaZOLAMIDE [Diamox Sequels 500 mg SR Cap] 500 mg PO Q12 #60 cer Albuterol 0.083% [Albuterol 0.083% Inhal Caridad (2.5 mg/3 ml) UD] 2.5 mg INH RQ4 PRN #100 neb PRN Reason: Shortness Of Breath Albuterol/Ipratropium [Duoneb 3 mg/0.5 mg (3 ml) UD] 3 ml INH RQID #100 neb Atorvastatin [Lipitor] 10 mg PO HS #30 tab Clotrimazole [Mycelex Bev] 10 mg PO 5XD PRN #30 gary PRN Reason: Sore Throat oxyCODONE/Acetaminophen [Percocet 5/325 mg Tab] 1 ea PO Q6 PRN #12 tab PRN Reason: Pain, Moderate (4-7) predniSONE [predniSONE Tab] 15 mg PO DAILY #90 tab Sirolimus 2 mg PO DAILY #30 tablet - Follow Up Plan Condition: GOOD Disposition: HOME/ ROUTINE Instructions: COPD Including Emphysema (DC), Exacerbation of COPD (DC) Referrals: Randy Interiano MD [Staff Provider] -
[2018-10-18 10:05] VITALS: BP 109/70; PULSE 88; TEMP 98.2; O2SAT 95
== END 2018-10-18 11:20 | disposition home or self-care (01) | DRG 189 ==
LOC: H.TCU 21:11 → UNDODISIN 10-17 08:48
PROVIDERS: ADMIT Student in an Organized Health Care Education/Training Program; ATTEND Student in an Organized Health Care Education/Training Program
PROC: 5A09457 Assistance with Respiratory Ventilation, 24-96 Consecutive Hours, Continuous Positive Airway Pressure (ICD-10-PCS; principal; 2018-10-02)
PROC: F07Z9FZ Gait Training/Functional Ambulation Treatment using Assistive, Adaptive, Supportive or Protective Equipment (ICD-10-PCS; 2018-10-02)
PROC: F08Z4FZ Home Management Treatment using Assistive, Adaptive, Supportive or Protective Equipment (ICD-10-PCS; 2018-10-02)
PROC: 3E0F73Z Introduction of Anti-inflammatory into Respiratory Tract, Via Natural or Artificial Opening (ICD-10-PCS; 2018-10-02)
PROC: 3E0F7GC Introduction of Other Therapeutic Substance into Respiratory Tract, Via Natural or Artificial Opening (ICD-10-PCS; 2018-10-02)
PROC: F07M6FZ Therapeutic Exercise Treatment of Musculoskeletal System - Whole Body using Assistive, Adaptive, Supportive or Protective Equipment (ICD-10-PCS; 2018-10-04)
DX: J96.12 Chronic respiratory failure with hypercapnia (principal); J84.81 Lymphangioleiomyomatosis; J44.9 Chronic obstructive pulmonary disease, unspecified; G89.4 Chronic pain syndrome; R53.1 Weakness; F41.9 Anxiety disorder, unspecified; F32.9 Major depressive disorder, single episode, unspecified; Z87.891 Personal history of nicotine dependence; Z88.2 Allergy status to sulfonamides

== ENCOUNTER 2018-10-17 09:05 | Emergency (ER) | payer MEDICARE, MEDICAID ==
[2018-10-17 09:05] VITALS: BMI 34.7
[2018-10-17] MEDS ORDERED: Albuterol-Ipratrop 3 mg / 0.5 (3 ml) UD IH STA (09:31)
[2018-10-17] MEDS ORDERED: Albuterol-Ipratrop 3 mg / 0.5 (3 ml) UD INH STA (09:31)
--- NOTE | 2018-10-17 09:35 | ED PDOC ---
HPI: SOB/CHF/COPD Time Seen by Provider: 10/17/18 09:17 Chief Complaint (Nursing): Shortness Of Breath Chief Complaint (Provider): Dyspnea History Per: Patient History/Exam Limitations: no limitations Onset/Duration Of Symptoms: Days (today) Additional Complaint(s): Pt. sent from TCU for dyspnea and feeling light-headed. Pt. put on bipap in the ER prior to evaluation. Pt. states it is helping her. No more dizziness. No weakness, chest pain, numbness, tingles. Was admitted for chf/copd and then sent to TCU for the same with consideation for subacute. Past Medical History Reviewed: Historical Data, Nursing Documentation, Vital Signs Vital Signs: Last Vital Signs Temp 97.6 F 10/17/18 09:11 Pulse 82 10/17/18 09:11 Resp 20 10/17/18 09:11 BP 164/83 H 10/17/18 09:11 Pulse Ox 97 10/17/18 09:11 - Medical History PMH: Anxiety, Asthma, Back Problems, COPD, Depression, Emphysema, Pneumonia, Pneumothorax Denies: Arthritis, HIV, HTN, Hypercholesterolemia, Hypothyroidism, Chronic Kidney Disease, Rheumatoid Arthritis - Surgical History Surgical History: No Surg Hx - Family History Family History: States: Unknown Family Hx, Diabetes - Social History Alcohol: None Drugs: Denies - Home Medications Home Medications: Ambulatory Orders Medication Instructions Recorded Cetirizine HCl [Wal-Zyr] 5 mg PO Q12 02/20/18 acetaZOLAMIDE [Acetazolamide] 500 mg PO Q12 02/20/18 Fluticasone Propionate [Flonase] 1 spray KIRBY BID PRN 04/04/18 Albuterol 0.083% [Albuterol 0.083% 2.5 mg INH RQ4 PRN neb 04/07/18 Inhal Caridad (2.5 mg/3 ml) UD] Promethazine DM [Phenergan DM 5 ml PO Q8 PRN cup 04/07/18 Syrup] ALPRAZolam [Xanax] 0.25 mg PO Q8 PRN tab 10/02/18 Acetaminophen [Tylenol 325mg tab] 650 mg PO Q6 PRN tab 10/02/18 Albuterol/Ipratropium [Duoneb 3 3 ml INH RQID neb 10/02/18 mg/0.5 mg (3 ml) UD] Enoxaparin [Lovenox] 40 mg SC DAILY syr 10/02/18 Pantoprazole [Protonix EC Tab] 40 mg PO DAILY ect 10/02/18 oxyCODONE/Acetaminophen [Percocet 1 tab PO Q6 PRN tab 10/02/18 5/325 mg Tab] Atorvastatin [Lipitor] 10 mg PO HS 10/17/18 Clotrimazole [Mycelex Bev] 10 mg PO 5XD PRN 10/17/18 Ondansetron ODT [Zofran ODT] 4 mg PO Q8 PRN 10/17/18 Sirolimus 2 mg PO DAILY 10/17/18 predniSONE [predniSONE Tab] 15 mg PO DAILY 10/17/18 - Allergies Allergies/Adverse Reactions: Allergies Allergy/AdvReac Type Severity Reaction Status Date / Time Sulfa (Sulfonamide Allergy RASH Verified 09/27/18 15:23 Antibiotics) Review of Systems ROS Statement: Except As Marked, All Systems Reviewed And Found Negative Respiratory: Positive for: Shortness of Breath Neurological: Positive for: Dizziness Physical Exam - Reviewed Nursing Documentation Reviewed: Yes Vital Signs Reviewed: Yes - Physical Exam Appears: Positive for: Uncomfortable Head Exam: Positive for: ATRAUMATIC, NORMAL INSPECTION, NORMOCEPHALIC Skin: Positive for: Normal Color, Warm, DRY Eye Exam: Positive for: EOMI, Normal appearance, PERRL ENT: Positive for: Normal ENT Inspection Neck: Positive for: Normal, Painless ROM Cardiovascular/Chest: Positive for: Regular Rate, Rhythm Respiratory: Positive for: Decreased Breath Sounds. Negative for: Accessory Muscle Use Gastrointestinal/Abdominal: Positive for: Normal Exam, Soft. Negative for: Tenderness Back: Positive for: Normal Inspection. Negative for: L CVA Tenderness, R CVA Tenderness Extremity: Positive for: Normal ROM, Pedal Edema (trace b/l no pitting). Negative for: Tenderness Neurologic/Psych: Positive for: Alert, wild life manager II-XII, Oriented. Negative for: Motor/Sensory Deficits - Laboratory Results Result Diagrams: 10/17/18 10:15 10/17/18 10:15 Lab Results: 3.2 k - ECG ECG: Positive for: Interpreted By Me, Viewed By Me ECG Rhythm: Positive for: Normal QRS, Normal ST Segment, Sinus Rhythm O2 Sat by Pulse Oximetry: 97 Pulse Ox Interpretation: Normal (on bipap) - Progress ED Course And Treament: 930: Spoke with Dr. Steen. Will admit. Knows pt. well. Stable. 1100: Dr. Interiano and Dr. Steen at bedside. Evaluated pt. and discussed plan. Want pt. to be sent to the TCU. Dr. Steen and Dr. Interiano to follow pt. accordingly. Pt. stable. Speaking full sentences. Comfortable. AAOx3. - Critical Care Total Time (In Min): 30 Documented Critical Care: Time excludes all time spent performint seperately billable procedures Disposition - Clinical Impression Clinical Impression: COPD exacerbation - Patient ED Disposition Is Patient to be Admitted: Yes Counseled Patient/Family Regarding: Studies Performed, Diagnosis - Disposition Disposition Time: 09:37 Condition: FAIR - Pt Status Changed To: Hospital Disposition Of: [facility] Extended Stay Bed (TCU) - POA Present On Arrival: None
[2018-10-17 10:01] LABS: ABG ALLEN TEST YES; ARTERIAL BLOOD GAS HCO3 36.6 mmol/L (21-28); ARTERIAL BLOOD GAS O2 SAT 100.5 % (95-98); ARTERIAL BLOOD GAS PCO2 76 mm/Hg (35-45); ARTERIAL BLOOD GAS PH 7.37 (7.35-7.45); ARTERIAL BLOOD GAS PO2 72 mm/Hg (80-100); ARTERIAL BLOOD GAS TCO2 46.2 mmol/L (22-28)
--- NOTE | 2018-10-17 10:16 | CP.PCM.HP ---
History of Present Illness - History of Present Illness History of Present Illness: CC: complaints of shortness of breath and weakness HPI: 58 year old female with PMHx of COPD, JIMENEZ (lymphangioleiomyomatosis), endometriosis, depression and chronic fatigue syndrome was transferred from TCU to the ED due to complaints of shortness of breath, weakness and dizziness. Patient recently admitted to the hospital on 09/27/18 for the same complaints and was then transferred to TCU. Patient states that at home, she is on Oxygen and uses nebulizer. Patient denies fever, nausea, vomiting, chest pain, urinary complaints, abdominal pain PMD: Dr Cardona Supply Chain Logistics Manager: Dr. Interiano. PMH: JIMENEZ (lymphangioleiomyomatosis), COPD, endometriosis, anxiety, and depression Medications: see med list Allergies: Sulfa drugs resulting in generalized rash PSH: Video-assisted thoracoscopy and lung biopsy because of recurrent spontaneous pneumothorax, D&C for uterine fibroids, benign breast cyst removal Fam: mother age 60 from breast cancer, father age 83 from kidney problem, brother has IDDM SOC: quit smoking 2 years ago, smoked 1 pack/day for about 25 years, denies alcohol and drugs ROS: 12 points assessed and negative unless otherwise reported in HPI ED Course: F/UCBC/CMP/Mg/Phos/BNP F/U ABG F/U Troponin F/U Blood Cultures DuoNeb 3 ml SoluMedrol 125 mg IV STAT CXR/EKG- Pending Started on BiPaP Present on Admission - Present on Admission Any Indicators Present on Admission: Yes Review of Systems - Constitutional Constitutional: Fatigue, Weakness - EENT Eyes: absent: Blurred Vision, Change in Vision Ears: Dizziness Nose/Mouth/Throat: Dry Mouth. absent: Nasal Congestion, Nasal Discharge - Cardiovascular Cardiovascular: Dyspnea, Dyspnea on Exertion. absent: Chest Pain at Rest, Chest Pain with Activity - Respiratory Respiratory: Dyspnea on Exertion - Gastrointestinal Gastrointestinal: absent: Abdominal Pain, Diarrhea, Nausea, Vomiting - Neurological Neurological: Dizziness. absent: Focal Weakness Past Patient History - Infectious Disease Hx of Infectious Diseases: None - Past Medical History & Family History Past Medical History?: Yes - Past Social History Alcohol: None Drugs: Denies - CARDIAC Hx Hypercholesterolemia: No Hx Hypertension: No - PULMONARY Hx Asthma: Yes Hx Chronic Obstructive Pulmonary Disease (COPD): Yes Hx Emphysema: Yes Hx Pneumonia: Yes - NEUROLOGICAL Hx Neurological Disorder: No - HEENT Hx HEENT Problems: Yes Other/Comment: Uses Eyeglasses - RENAL Hx Chronic Kidney Disease: No - ENDOCRINE/METABOLIC Hx Hypothyroidism: No - HEMATOLOGICAL/ONCOLOGICAL Hx Human Immunodeficiency Virus (HIV): No - INTEGUMENTARY Hx Dermatological Problems: No - MUSCULOSKELETAL/RHEUMATOLOGICAL Hx Arthritis: No Hx Rheumatoid Arthritis: No - GASTROINTESTINAL Hx Gastrointestinal Disorders: No - GENITOURINARY/GYNECOLOGICAL Hx Genitourinary Disorders: Yes - PSYCHIATRIC Hx Anxiety: Yes Hx Depression: Yes - SURGICAL HISTORY Hx Pulmonary Surgery: Yes (VATS lung biopsy and pleurodesis) Other/Comment: breast cyst removal (benign), D&C for uterine fibroids, chest tube x2 (spontaneous pneumothorax) with lung biopsy done on second episode. - ANESTHESIA Hx Anesthesia: Yes Hx Anesthesia Reactions: No Hx Malignant Hyperthermia: No Meds Allergies/Adverse Reactions: Allergies Allergy/AdvReac Type Severity Reaction Status Date / Time Sulfa (Sulfonamide Allergy RASH Verified 09/27/18 15:23 Antibiotics) Physical Exam - Constitutional Appears: Well, Non-toxic, In Acute Distress - Head Exam Head Exam: ATRAUMATIC, NORMOCEPHALIC - Eye Exam Eye Exam: Normal appearance, PERRL - ENT Exam ENT Exam: Mucous Membranes Moist, Normal Exam - Respiratory Exam Respiratory Exam: Decreased Breath Sounds, Respiratory Distress - Cardiovascular Exam Cardiovascular Exam: REGULAR RHYTHM, +S1, +S2 - GI/Abdominal Exam GI & Abdominal Exam: Normal Bowel Sounds, Soft. absent: Distended, Firm, Guarding - Neurological Exam Neurological exam: Alert, Oriented x3 - Psychiatric Exam Psychiatric exam: Normal Affect, Normal Mood Results - Vital Signs Recent Vital Signs: Last Vital Signs Temp 97.6 F 10/17/18 09:11 Pulse 82 10/17/18 09:11 Resp 20 10/17/18 09:11 BP 164/83 H 10/17/18 09:11 Pulse Ox 97 10/17/18 09:38 - Labs Result Diagrams: 10/17/18 10:15 10/17/18 10:15 Labs: Laboratory Results - last 24 hr 10/17/18 09:36 pCO2 76 H* pO2 72 L HCO3 36.6 H ABG pH 7.37 ABG Total CO2 46.2 H ABG O2 Saturation 100.5 H ABG Base Excess 15.1 H Contreras Test Yes ABG Potassium 3.4 L A-a O2 Difference 47.0 Sodium 140.0 Chloride 103.0 Glucose 148 H Lactate 0.8 Vent Mode Bipap Mechanical Rate 16 FiO2 30.0 Inspiratory BiPAP 10 Expiratory BiPAP 5 Blood Gas Comments Bipap10/5,rr-16,30% Crit Value Called To Dr. shantanu leung Crit Value Called By Anabell Crit Value Read Back Y Blood Gas Notified Time 1001 Arterial Blood Potassium 3.4 L Assessment & Plan - Assessment and Plan (Free Text) Assessment: 58 year old female with PMH of significant for advanced stage COPD/Lymphangiolei omyomatosis, obesity, Chronic pain syndrome, anxiety admitted for evaluation and management of recurring dyspnea and weakness. Patient sent from TCU, and recently admitted for the same complaint
[2018-10-17 10:22] VITALS: TEMP 98.3
[2018-10-17] MEDS ORDERED: Albuterol-Ipratrop 3 mg / 0.5 (3 ml) UD ONE ×2 (10:37→11:23)
[2018-10-17 10:47] LABS: BASO # 0.1 K/uL (0.0-0.2); BASO % 0.5 % (0.0-2.0); EOS % 0.4 % (0.0-4.0); HEMOGLOBIN 12.3 g/dL (12.0-16.0); LYMPH # 2.2 K/uL (1.0-4.3); LYMPH % 17.8 % (20.0-40.0); MEAN CELL VOLUME 91.1 fl (81.0-99.0); MEAN CORPUSCULAR HEMOGLOBIN 28.1 pg (27.0-31.0); MEAN CORPUSCULAR HGB CONC 30.9 g/dL (33.0-37.0); MEAN PLATELET VOLUME 7.4 fl (7.2-11.7); MONO # 1.6 K/uL (0.0-0.8); MONO % 12.5 % (0.0-10.0); NEUT # 8.5 K/uL (1.8-7.0); NEUT % 68.8 % (50.0-75.0); RBC 4.38 Mil/uL (3.80-5.20); WHITE BLOOD COUNT 12.4 K/uL (4.8-10.8)
[2018-10-17 10:56] LABS: ALB/GLOB RATIO 1.2 (1.0-2.1); ALBUMIN 3.5 g/dL (3.5-5.0); ALT/SGPT 54 U/L (9-52); AST/SGOT 26 U/L (14-36); BLOOD UREA NITROGEN 22 mg/dl (7-17); CALCIUM 8.8 mg/dL (8.4-10.2); GFR NON-AFRICAN AMERICAN > 60
[2018-10-17 10:58] LABS: INR 0.8
[2018-10-17 11:00] LABS: PARTIAL THROMBOPLASTIN TIME 24.6 Seconds (25.6-37.1)
[2018-10-17 11:04] LABS: B-TYPE NATRIURETIC PEPTIDE 29.7 pg/ml (0-900)
[2018-10-17 11:10] LABS: PROTHROMBIN TIME 9.6 Seconds (9.8-13.1)
--- NOTE | 2018-10-17 11:35 | CP.PCM.PN ---
Subjective - Date & Time of Evaluation Date of Evaluation: 10/17/18 Time of Evaluation: 11:29 - Subjective Subjective: Evaluated in the emergency room this morning. Had been sent there from TCU because of dizziness, headache and weakness. Has had improvement in her clinical status after changes were made to her BiPAP ventilator settings. Arterial blood gas shows persistent hypercapnia, but oxygenation may be too high. Adjustments to her ventilator were made and she has improved allowing return to TCU and avoiding placement in acute medicine. New settings include backup rate of 16BPM, I pressure 12, E pressure 6, FiO2 of 24%. I have spoken with someone from her home DME supplier regarding her current status and they will call me back with other possible options if available. Objective - Vital Signs/Intake and Output Vital Signs (last 24 hours): Temp Pulse Resp BP Pulse Ox 98.3 F 78 16 100/70 97 10/17/18 10:22 10/17/18 10:22 10/17/18 10:22 10/17/18 10:22 10/17/18 11:10 - Medications Medications: Current Medications Potassium Chloride (K-Dur 20 Meq Er Tab) 40 meq PO TID DENISSE - Labs Labs: 10/17/18 10:15 10/17/18 10:15 PT 9.6 Seconds (9.8-13.1) L 10/17/18 10:15 INR 0.8 10/17/18 10:15 APTT 24.6 Seconds (25.6-37.1) L 10/17/18 10:15
[2018-10-17] MEDS ORDERED: Potassium Chloride 20 mEq ER Tab PO ONE (12:49)
[2018-10-17] MEDS ORDERED: Potassium Chloride 20 mEq ER Tab PO SCH (13:00)
[2018-10-17 13:17] VITALS: BP 158/90; PULSE 106; RESP 18; O2SAT 90
--- NOTE | 2018-10-17 15:21 | RAD ---
Date of service: 10/17/2018 HISTORY: Sepsis Patient COMPARISON: Comparison made with chest radiograph and CT scan chest both dated 09/27/2018. FINDINGS: LUNGS: Hyperinflation consistent with significant emphysematous changes are present though less well seen on this study as compared to high-resolution CT scan... Chronic appearing scarring and tenting right lung base/hemidiaphragm; mild scarring changes also present left lung base. PLEURA: No significant pleural effusion identified, no pneumothorax apparent. CARDIOVASCULAR: No discernible aortic atherosclerotic calcification present. Heart appears enlarged.. No pulmonary vascular congestion. OSSEOUS STRUCTURES: No significant abnormalities. VISUALIZED UPPER ABDOMEN: Normal. OTHER FINDINGS: None. IMPRESSION: Hyperinflation consistent with significant emphysematous changes are present though less well seen on this study as compared to high-resolution CT scan... Chronic appearing scarring and tenting right lung base/hemidiaphragm; mild scarring changes also present left lung base.
--- NOTE | 2018-10-17 20:42 | CARD ---
APPROVED REPORT Date of service: 10/17/2018 EKG Measurement Heart [id number] <Conclusion> Normal sinus rhythm Normal ECG
== END 2018-10-17 13:21 | disposition home or self-care (01) ==
LOC: H.ER 09:05 → UNDOADMOB 09:37 → H.ERHOLD 09:37
DX: J44.1 Chronic obstructive pulmonary disease with (acute) exacerbation (principal)
CPT/HCPCS: 36600; 71045; 80053; 82803; 83735; 83880; 84100; 84484; 85025; 85610; 85730; 87040; 93005; 94640; 94660; 96374; 99284; J2930

== ENCOUNTER 2018-12-08 16:32 | Inpatient (IN) | payer MEDICARE, MEDICAID ==
[2018-12-08] MEDS ORDERED: Albuterol-Ipratrop 3 mg / 0.5 (3 ml) UD IH STA ×2 (16:59→17:49)
--- NOTE | 2018-12-08 17:07 | ED PDOC ---
HPI: SOB/CHF/COPD Time Seen by Provider: 12/08/18 16:50 Chief Complaint (Nursing): Shortness Of Breath History Per: Patient Onset/Duration Of Symptoms: Days (3) Current Symptoms Are (Timing): Still Present Quality: Tightness Exacerbating Factor(s): Exertion Current Respiratory Medications: See Home Med List Severity: Moderate Associated Symptoms: denies: Fever, Productive Cough Recently: Treated By A Physician Additional Complaint(s): SOB, worse with exertion over past 3 days. Has been increasing her dose of Prednisone and using BiPap with no improvement. Has been coughing productive clear sputum. Denies fever. Past Medical History Vital Signs: Last Vital Signs Temp 98.3 F 12/08/18 16:35 Pulse 114 H 12/08/18 16:35 Resp 18 12/08/18 16:35 BP 153/102 H 12/08/18 16:35 Pulse Ox 99 12/08/18 16:35 - Medical History PMH: Anxiety, Asthma, Back Problems, COPD, Depression, Emphysema, Pneumonia, Pneumothorax Denies: Arthritis, CHF, HIV, HTN, Hypercholesterolemia, Hypothyroidism, Chronic Kidney Disease, Rheumatoid Arthritis - Family History Family History: States: Unknown Family Hx, Diabetes - Home Medications Home Medications: Ambulatory Orders Medication Instructions Recorded Cetirizine HCl [Wal-Zyr] 5 mg PO Q12 02/20/18 Fluticasone Propionate [Flonase] 1 spray KIRBY BID PRN 04/04/18 Promethazine DM [Phenergan DM 5 ml PO Q8 PRN cup 04/07/18 Syrup] ALPRAZolam [Xanax] 0.25 mg PO Q8 PRN tab 10/02/18 Acetaminophen [Tylenol 325mg tab] 650 mg PO Q6 PRN tab 10/02/18 Pantoprazole [Protonix EC Tab] 40 mg PO DAILY ect 10/02/18 Albuterol 0.083% [Albuterol 0.083% 2.5 mg INH RQ4 PRN #100 neb 10/18/18 Inhal Caridad (2.5 mg/3 ml) UD] Albuterol/Ipratropium [Duoneb 3 3 ml INH RQID #100 neb 10/18/18 mg/0.5 mg (3 ml) UD] Atorvastatin [Lipitor] 10 mg PO HS #30 tab 10/18/18 Clotrimazole [Mycelex Bev] 10 mg PO 5XD PRN #30 gary 10/18/18 Sirolimus 2 mg PO DAILY #30 tablet 10/18/18 acetaZOLAMIDE [Diamox Sequels 500 500 mg PO Q12 #60 cer 10/18/18 mg SR Cap] oxyCODONE/Acetaminophen [Percocet 1 ea PO Q6 PRN #12 tab 10/18/18 5/325 mg Tab] predniSONE [predniSONE Tab] 15 mg PO DAILY #90 tab 10/18/18 - Allergies Allergies/Adverse Reactions: Allergies Allergy/AdvReac Type Severity Reaction Status Date / Time Sulfa (Sulfonamide Allergy RASH Verified 12/08/18 16:34 Antibiotics) Review of Systems ROS Statement: Except As Marked, All Systems Reviewed And Found Negative Respiratory: Positive for: Cough, Shortness of Breath, SOB with Exertion Physical Exam - Reviewed Nursing Documentation Reviewed: Yes Vital Signs Reviewed: Yes - Physical Exam Appears: Positive for: Non-toxic, Uncomfortable Head Exam: Positive for: ATRAUMATIC, NORMAL INSPECTION, NORMOCEPHALIC Skin: Positive for: Normal Color, Warm, DRY Eye Exam: Positive for: EOMI, Normal appearance, PERRL ENT: Positive for: Normal ENT Inspection Neck: Positive for: Normal, Painless ROM Cardiovascular/Chest: Positive for: Regular Rate, Rhythm, Tachycardia Respiratory: Positive for: Decreased Breath Sounds, Respiratory Distress (Mild) Gastrointestinal/Abdominal: Positive for: Normal Exam, Soft Back: Positive for: Normal Inspection Extremity: Positive for: Normal ROM Neurologic/Psych: Positive for: Alert, Oriented - ECG O2 Sat by Pulse Oximetry: 99 Disposition - Clinical Impression Clinical Impression: COPD (chronic obstructive pulmonary disease) - Patient ED Disposition Is Patient to be Admitted: Transfer of Care - Disposition Disposition: Transfer of Care Disposition Time: 19:07 Condition: FAIR Forms: Certess (Nepali) Patient Signed Over To: Juanita Christopher (pending ct)
[2018-12-08] MEDS ORDERED: Albuterol-Ipratrop 3 mg / 0.5 (3 ml) UD ONE ×3 (17:14→20:13)
--- NOTE | 2018-12-08 19:03 | RAD ---
Date of service: 12/08/2018 HISTORY: SOB COMPARISON: Portable chest 10/17/2018. TECHNIQUE: Chest PA and lateral FINDINGS: LUNGS: The bases a partially obscured by artifact. COPD and pulmonary fibrotic changes are reiterated with no definitive alveolar infiltrate appreciated bilaterally. PLEURA: No large pneumothorax or pleural effusion appreciable. Costophrenic sulci are cut off by artifact. CARDIOVASCULAR: No aortic atherosclerotic calcification present. Stable cardiac size. No pulmonary vascular congestion. OSSEOUS STRUCTURES: No significant abnormalities. VISUALIZED UPPER ABDOMEN: Normal. OTHER FINDINGS: None. IMPRESSION: COPD pattern reiterated with base obscured by artifact. No gross pneumothorax or pleural effusion. No prominent infiltrate bilaterally.
[2018-12-08] MEDS ORDERED: Sodium Chloride 0.9% 0 ML IV ONE (19:08)
[2018-12-08] MEDS ORDERED: Iohexol 300 100 ML IJ ONE (19:08)
[2018-12-08 19:34] LABS: BASO # 0.1 K/uL (0.0-0.2); BASO % 0.4 % (0.0-2.0); EOS % 0.2 % (0.0-4.0); HEMOGLOBIN 12.3 g/dL (12.0-16.0); LYMPH # 0.7 K/uL (1.0-4.3); LYMPH % 5.6 % (20.0-40.0); MEAN CELL VOLUME 86.3 fl (81.0-99.0); MEAN CORPUSCULAR HEMOGLOBIN 26.6 pg (27.0-31.0); MEAN CORPUSCULAR HGB CONC 30.8 g/dL (33.0-37.0); MONO # 0.8 K/uL (0.0-0.8); MONO % 6.5 % (0.0-10.0); NEUT # 11.1 K/uL (1.8-7.0); NEUT % 87.3 % (50.0-75.0); PLATELET COUNT 435 K/uL (130-400); RBC 4.62 Mil/uL (3.80-5.20); RED CELL DISTRIBUTION WIDTH 15.8 % (11.5-14.5); WHITE BLOOD COUNT 12.7 K/uL (4.8-10.8)
--- NOTE | 2018-12-08 19:35 | ED PDOC ---
- Laboratory Results Result Diagrams: 12/08/18 16:10 12/08/18 16:10 - ECG O2 Sat by Pulse Oximetry: 99 (RA) Pulse Ox Interpretation: Normal Medical Decision Making Medical Decision Making: Time: 1899 --Patient signed out to this provider by Dr. Bass, pending chest CT. Time: 2154 --Patient refusing CT, states she still feels short of breath. Will admit patient for COPD exacerbation under hospitalist and medical service. 2249 Pt states she does not want the magnesium finished as it is making her "uncomfortable". Pt denies chest pain, SOB, nausea. EKG rhythm of monitor NSR. Scribe Attestation: Documented by Maria Guadalupe Murrell, acting as a scribe for Juanita Christopher MD. Provider Scribe Attestation: All medical record entries made by the Scribe were at my direction and personally dictated by me. I have reviewed the chart and agree that the record accurately reflects my personal performance of the history, physical exam, medical decision making, and the department course for this patient. I have also personally directed, reviewed, and agree with the discharge instructions and disposition. Disposition - Clinical Impression Clinical Impression: COPD (chronic obstructive pulmonary disease) - POA Present On Arrival: None - Disposition Disposition: Admitted as In-Patient Disposition Time: 22:00 Condition: FAIR
[2018-12-08 19:43] LABS: ALB/GLOB RATIO 1.4 (1.0-2.1); ALBUMIN 4.1 g/dL (3.5-5.0); ALT/SGPT 23 U/L (9-52); AST/SGOT 20 U/L (14-36); BLOOD UREA NITROGEN 15 mg/dl (7-17); CALCIUM 9.6 mg/dL (8.4-10.2); GFR NON-AFRICAN AMERICAN > 60
[2018-12-08] MEDS ORDERED: Albuterol-Ipratrop 3 mg / 0.5 (3 ml) UD INH STA (20:11)
[2018-12-08 20:59] LABS: ANISOCYTOSIS SLIGHT; BANDS 3 % (0-2); LYMPHOCYTE 5 % (20-50); MONOCYTE 7 % (0-10); NEUTROPHIL 85 % (42-75); PLATELET ESTIMATE NORMAL (NORMAL); TOTAL CELLS COUNTED 100
[2018-12-08] MEDS ORDERED: Magnesium Sulfate 2 gm/50 ml 2 GM/50 ML BAG IVPB ONE (21:59)
[2018-12-08] MEDS ORDERED: Magnesium Sulfate 2 gm/50 ml 2 GM/50 ML BAG ONE (22:24)
--- NOTE | 2018-12-08 22:40 | CP.PCM.HP ---
<Sultan Ramez - Last Filed: 12/09/18 02:00> History of Present Illness - History of Present Illness History of Present Illness: CC: worsening shortness of breath HPI:58 year old female with PMHx of COPD, JIMENEZ (lymphangioleiomyomatosis), endometriosis, depression and chronic fatigue syndrome presented to the ED via EMS complaining of worsening shortness of breath for the past one week. States she was advised to take prednisone 10 mg every other day but for last few days she has been taking more prednisone but her shortness of breath is not improving. She uses BIPAP and home oxygen as well. Denies any cough, chest pain, fever, chills or dizziness. Patient declined chest CT in the ER Ros: All 12 systems reviewed and negative except as mentioned in HPI PMD: Dr Cardona [employer] Supervisor: Dr. Interiano PMH: JIMENEZ (lymphangioleiomyomatosis), COPD, endometriosis, anxiety, and depression PSH: Video-assisted thoracoscopy and lung biopsy because of recurrent spontaneous pneumothorax, D&C for uterine fibroids, benign breast cyst removal Fam: mother age 60 from breast cancer, father age 80 from kidney problem, brother has DM2 SOC: quit smoking 2 years ago, smoked 1 pack/day for about 25 years, denies alcohol and drugs Medications: see med list Allergies: Sulfa drugs-- generalized rash Present on Admission - Present on Admission Any Indicators Present on Admission: No Review of Systems - Review of Systems Review of Systems: All 12 systems reviewed and negative except as mentioned in HPI Past Patient History - Infectious Disease Hx of Infectious Diseases: None - Past Medical History & Family History Past Medical History?: Yes - Past Social History Smoking Status: Former Smoker - CARDIAC Hx Congestive Heart Failure: No Hx Hypercholesterolemia: No Hx Hypertension: No - PULMONARY Hx Asthma: Yes Hx Chronic Obstructive Pulmonary Disease (COPD): Yes Hx Emphysema: Yes Hx Pneumonia: Yes - NEUROLOGICAL Hx Neurological Disorder: No - HEENT Hx HEENT Problems: Yes Other/Comment: Uses Eyeglasses - RENAL Hx Chronic Kidney Disease: No - ENDOCRINE/METABOLIC Hx Hypothyroidism: No - HEMATOLOGICAL/ONCOLOGICAL Hx Human Immunodeficiency Virus (HIV): No - INTEGUMENTARY Hx Dermatological Problems: No - MUSCULOSKELETAL/RHEUMATOLOGICAL Hx Arthritis: No Hx Rheumatoid Arthritis: No - GASTROINTESTINAL Hx Gastrointestinal Disorders: No - GENITOURINARY/GYNECOLOGICAL Hx Genitourinary Disorders: Yes - PSYCHIATRIC Hx Anxiety: Yes Hx Depression: Yes - SURGICAL HISTORY Hx Pulmonary Surgery: Yes (VATS lung biopsy and pleurodesis) Other/Comment: breast cyst removal (benign), D&C for uterine fibroids, chest tube x2 (spontaneous pneumothorax) with lung biopsy done on second episode. - ANESTHESIA Hx Anesthesia: Yes Hx Anesthesia Reactions: No Hx Malignant Hyperthermia: No Meds Allergies/Adverse Reactions: Allergies Allergy/AdvReac Type Severity Reaction Status Date / Time Sulfa (Sulfonamide Allergy RASH Verified 12/08/18 16:34 Antibiotics) Physical Exam - Constitutional Additional comments: Looks uncomfortable, on 2 L NC oxygen. Can speak in short sentences. - Head Exam Head Exam: NORMAL INSPECTION - Eye Exam Eye Exam: Normal appearance - ENT Exam ENT Exam: Mucous Membranes Moist - Respiratory Exam Respiratory Exam: Respiratory Distress (mild;). absent: Rhonchi, Wheezes Additional comments: Diminished breath sounds B/L - Cardiovascular Exam Cardiovascular Exam: REGULAR RHYTHM, +S1, +S2 - GI/Abdominal Exam GI & Abdominal Exam: Normal Bowel Sounds, Soft. absent: Tenderness - Extremities Exam Extremities exam: Positive for: pedal edema (2+). Negative for: calf tenderness - Neurological Exam Neurological exam: Alert, Oriented x3 - Skin Skin Exam: Normal Color Results - Vital Signs Recent Vital Signs: Last Vital Signs Temp 97.9 F 12/08/18 21:42 Pulse 105 H 12/08/18 21:42 Resp 20 12/08/18 21:42 BP 144/94 H 12/08/18 21:42 Pulse Ox 99 12/08/18 21:56 - Labs Result Diagrams: 12/08/18 16:10 12/08/18 16:10 Labs: Laboratory Results - last 24 hr 12/08/18 12/08/18 16:10 16:10 WBC 12.7 H RBC 4.62 Hgb 12.3 Hct 39.9 MCV 86.3 D MCH 26.6 L MCHC 30.8 L RDW 15.8 H Plt Count 435 H D MPV 8.0 Neut % (Auto) 87.3 H Lymph % (Auto) 5.6 L [place] % (Auto) 6.5 Eos % (Auto) 0.2 Baso % (Auto) 0.4 Neut # (Auto) 11.1 H Lymph # (Auto) 0.7 L [place] # (Auto) 0.8 Eos # (Auto) 0.0 Baso # (Auto) 0.1 Neutrophils % (Manual) 85 H Band Neutrophils % 3 H Lymphocytes % (Manual) 5 L Monocytes % (Manual) 7 Platelet Estimate Normal Anisocytosis (manual) Slight Sodium 142 Potassium 3.7 Chloride 104 Carbon Dioxide 26 Anion Gap 16 BUN 15 Creatinine 0.5 L Est GFR ( Amer) > 60 Est GFR (Non-Af Amer) > 60 Random Glucose 108 H Calcium 9.6 Total Bilirubin 0.3 AST 20 ALT 23 Alkaline Phosphatase 92 Total Protein 7.2 Albumin 4.1 Globulin 3.0 Albumin/Globulin Ratio 1.4 Assessment & Plan - Assessment and Plan (Free Text) Assessment: 58 year old female with PMHx of COPD, JIMENEZ (lymphangioleiomyomatosis), endometriosis, depression and chronic fatigue syndrome admitted for worsening shortness of breath for the past one week. Plan: Advanced COPD/ Lymphangioleiomyomatosis Acute on Chronic respiratory failure - afebrile, tachypneic, dyspnea - Slight tachycardia otherwise stable vitals - S/P duoneb x 3, mag 2gm and solumedrol 60 mg IVP in ED - cont Acetazolamide and rest of home meds -c/w DuoNEB Q4, solumedrol 60 mg IV Q12 - [employer] Supervisor Dr. Interiano consulted, f/u recs -F/U ABG, procalcitonin and AM labs Chronic Pain syndrome - Continue w/ home medications of Percocet and tylenol - PT/OT Anxiety - cont Xanax DVT prophylaxis -Lovenox 40 mg sc daily Patient seen, examined and plan discussed with Dr. Subha Myrick, pgy-2 <Martin Mascorro M - Last Filed: 12/09/18 03:23> Results - Vital Signs Recent Vital Signs: Last Vital Signs Temp 97.2 F L 12/08/18 23:45 Pulse 101 H 12/09/18 03:05 Resp 18 12/08/18 23:45 BP 131/80 12/08/18 23:45 Pulse Ox 95 12/08/18 23:45 - Labs Result Diagrams: 12/08/18 16:10 12/08/18 16:10 Labs: Laboratory Results - last 24 hr 12/08/18 12/08/18 12/09/18 16:10 16:10 02:23 WBC 12.7 H RBC 4.62 Hgb 12.3 Hct 39.9 MCV 86.3 D MCH 26.6 L MCHC 30.8 L RDW 15.8 H Plt Count 435 H D MPV 8.0 Neut % (Auto) 87.3 H Lymph % (Auto) 5.6 L [place] % (Auto) 6.5 Eos % (Auto) 0.2 Baso % (Auto) 0.4 Neut # (Auto) 11.1 H Lymph # (Auto) 0.7 L [place] # (Auto) 0.8 Eos # (Auto) 0.0 Baso # (Auto) 0.1 Neutrophils % (Manual) 85 H Band Neutrophils % 3 H Lymphocytes % (Manual) 5 L Monocytes % (Manual) 7 Platelet Estimate Normal Anisocytosis (manual) Slight pCO2 66 H pO2 74 L HCO3 30.0 H ABG pH 7.33 L ABG Total CO2 36.8 H ABG O2 Saturation 96.9 ABG Base Excess 6.6 H [place] Test Yes ABG Potassium 3.8 A-a O2 Difference 72.0 Glucose 218 H Lactate 1.5 Vent Mode 3l nc FiO2 32.0 Sodium 142 143.0 Potassium 3.7 Chloride 104 108.0 H Carbon Dioxide 26 Anion Gap 16 BUN 15 Creatinine 0.5 L Est GFR ( Amer) > 60 Est GFR (Non-Af Amer) > 60 Random Glucose 108 H Calcium 9.6 Total Bilirubin 0.3 AST 20 ALT 23 Alkaline Phosphatase 92 Total Protein 7.2 Albumin 4.1 Globulin 3.0 Albumin/Globulin Ratio 1.4 Arterial Blood Potassium 3.8 Assessment & Plan - Assessment and Plan (Free Text) Plan: History as documented by resident was reviewed with patient and resident. I personally performed the roque elements of physical exam and agree with the above findings. Diagnostics reviewed. X-ray and EKG as above interpreted by me. Medical decision making and plan of care performed by me. 58 yo F with COPD and JIMENEZ and anxiety/depression p/w increasing SOB despite taking po steroid and using bipap at home. Patient with end-stage pulmonary disease. Will give IV steroid and will consult her pulmonalogist. Overall prognosis guarded and not much more can be done. Only game changer at this point is transplant if patient deems to be a suitable candidate.
[2018-12-08] MEDS ORDERED: guaiFENesin 600 mg ER Tab PO PRN (23:25)
[2018-12-08] MEDS ORDERED: CETIRIZINE HCL 5 MG PO PRN (23:25)
[2018-12-08] MEDS: Albuterol-Ipratrop 3 mg / 0.5 (3 ml) UD INH SCH (23:56)
[2018-12-09] MEDS: acetaZOLAMIDE 500 mg SR Cap PO SCH ×3 (00:20→21:52)
[2018-12-09] MEDS ORDERED: OXYCODONE HCL PO PRN (01:54)
[2018-12-09] MEDS ORDERED: ACETAMINOPHEN PO PRN (01:54)
[2018-12-09 02:41] LABS: ABG ALLEN TEST YES; ARTERIAL BLOOD GAS O2 SAT 96.9 % (95-98); ARTERIAL BLOOD GAS PCO2 66 mm/Hg (35-45); ARTERIAL BLOOD GAS PH 7.33 (7.35-7.45); ARTERIAL BLOOD GAS PO2 74 mm/Hg (80-100); ARTERIAL BLOOD GAS TCO2 36.8 mmol/L (22-28)
[2018-12-09] MEDS: Albuterol-Ipratrop 3 mg / 0.5 (3 ml) UD INH SCH ×6 (03:05→23:50)
[2018-12-09 03:32] VITALS: BMI 36.1
[2018-12-09] MEDS: Oxycodone/Acetaminophen 5/325 mg Tab PO PRN ×3 (03:45→22:01)
[2018-12-09 06:23] LABS: BASO % 0.1 % (0.0-2.0); HEMOGLOBIN 11.7 g/dL (12.0-16.0); LYMPH # 0.6 K/uL (1.0-4.3); LYMPH % 6.5 % (20.0-40.0); MEAN CELL VOLUME 85.2 fl (81.0-99.0); MEAN CORPUSCULAR HEMOGLOBIN 27.2 pg (27.0-31.0); MEAN CORPUSCULAR HGB CONC 31.9 g/dL (33.0-37.0); MEAN PLATELET VOLUME 7.5 fl (7.2-11.7); MONO # 0.7 K/uL (0.0-0.8); MONO % 7.5 % (0.0-10.0); NEUT # 8.5 K/uL (1.8-7.0); NEUT % 85.9 % (50.0-75.0); RBC 4.31 Mil/uL (3.80-5.20); RED CELL DISTRIBUTION WIDTH 15.3 % (11.5-14.5); WHITE BLOOD COUNT 9.9 K/uL (4.8-10.8)
[2018-12-09 06:38] LABS: BLOOD UREA NITROGEN 15 mg/dl (7-17); CALCIUM 9.4 mg/dL (8.4-10.2); GFR NON-AFRICAN AMERICAN > 60
[2018-12-09] MEDS: Enoxaparin 40 mg Syringe SC SCH (09:29)
[2018-12-09] MEDS: Pantoprazole 40 mg EC Tab PO SCH (09:30)
--- NOTE | 2018-12-09 11:14 | CP.PCM.PN ---
Subjective - Date & Time of Evaluation Date of Evaluation: 12/09/18 Time of Evaluation: 11:00 - Subjective Subjective: Pt has no fever still with cough, with some sputum production still with SOB On 2 liters Oxygen per NC denies CP feels bloated no abd pain Objective - Vital Signs/Intake and Output Vital Signs (last 24 hours): Temp Pulse Resp BP Pulse Ox 97.5 F L 87 20 122/76 100 12/09/18 08:17 12/09/18 08:17 12/09/18 08:17 12/09/18 08:17 12/09/18 08:17 - Medications Medications: Current Medications Acetaminophen (Tylenol 325mg Tab) 650 mg PO Q6 PRN PRN Reason: Pain, Mild (1-3) Acetazolamide (Diamox Sequels 500 Mg Sr Cap) 500 mg PO Q12 [facility] Last Admin: 12/09/18 09:30 Dose: 500 mg Albuterol/Ipratropium (Duoneb 3 Mg/0.5 Mg (3 Ml) Ud) 3 ml INH RQ4 [facility] Last Admin: 12/09/18 07:16 Dose: 3 ml Alprazolam (Xanax) 0.25 mg PO Q8 PRN PRN Reason: Anxiety Stop: 12/15/18 23:26 Last Admin: 12/09/18 09:28 Dose: 0.25 mg Atorvastatin Calcium (Lipitor) 10 mg PO HS [facility] Last Admin: 12/09/18 00:20 Dose: 10 mg Clotrimazole (Mycelex Bev) 10 mg PO 5XD PRN PRN Reason: Sore Throat Enoxaparin Sodium (Lovenox) 40 mg SC DAILY [facility]; Protocol Last Admin: 12/09/18 09:29 Dose: 40 mg Fluticasone Propionate (Flonase) 1 spr KIRBY BID PRN PRN Reason: Nasal congestion Last Admin: 12/09/18 09:30 Dose: 1 spr Guaifenesin (Mucinex La) 600 mg PO Q8 PRN PRN Reason: Cough Home Med (Sirolimus [Sirolimus]) 2 mg PO DAILY [facility] Loratadine (Claritin) 10 mg PO Q12 PRN PRN Reason: Allergy symptoms Methylprednisolone (Solu-Medrol) 60 mg IVP Q12 [facility] Last Admin: 12/09/18 09:30 Dose: 60 mg Oxycodone/Acetaminophen (Percocet 5/325 Mg Tab) 1 tab PO Q6 PRN PRN Reason: Pain, moderate (4-7) Stop: 12/12/18 03:33 Last Admin: 12/09/18 03:45 Dose: 1 tab Pantoprazole Sodium (Protonix Ec Tab) 40 mg PO DAILY [facility] Last Admin: 12/09/18 09:30 Dose: 40 mg - Labs Labs: 12/09/18 05:31 12/09/18 05:31 - Constitutional Appears: Non-toxic, No Acute Distress - Head Exam Head Exam: ATRAUMATIC, NORMAL INSPECTION, NORMOCEPHALIC - Eye Exam Eye Exam: EOMI, Normal appearance Pupil Exam: NORMAL ACCOMODATION - ENT Exam ENT Exam: Mucous Membranes Dry, Normal External Ear Exam - Neck Exam Neck Exam: Full ROM. absent: Meningismus - Respiratory Exam Respiratory Exam: Decreased Breath Sounds. absent: Respiratory Distress Additional comments: saturation 95% on 2-3 liters - Cardiovascular Exam Cardiovascular Exam: REGULAR RHYTHM, +S1, +S2 - GI/Abdominal Exam GI & Abdominal Exam: Soft, Normal Bowel Sounds. absent: Tenderness - Extremities Exam Extremities Exam: Normal Capillary Refill, Pedal Edema (trace pedal edema). absent: Calf Tenderness - Back Exam Back Exam: Full ROM. absent: CVA tenderness (L), CVA tenderness (R) - Neurological Exam Neurological Exam: Alert, Awake, CN II-XII Intact, Oriented x3 Neuro motor strength exam: Left Upper Extremity: 5, Right Upper Extremity: 5, Left Lower Extremity: 5, Right Lower Extremity: 5 - Psychiatric Exam Psychiatric exam: Flat Affect - Skin Skin Exam: Dry, Normal Color, Warm Assessment and Plan (1) Acute on chronic respiratory failure with hypoxia and hypercapnia Status: Acute (2) COPD exacerbation Status: Acute (3) Lymphangioleiomyomatosis Status: Chronic - Assessment and Plan (Free Text) Assessment: (1) Acute on chronic respiratory failure with hypoxia and hypercapnia (2) COPD exacerbation (3) Lymphangioleiomyomatosis - cont Oxygen per NC at 2-3 liters for now /Bipap prn - cont IV Solumedrol and Duoneb - Discussed case with Dr Interiano - rec to cont Sirolimus ( Nonformulary - pt will ask her friend to bring in med from home ), check level -Pulmonary consult - Dr Benites - cont Diamox
[2018-12-09] MEDS ORDERED: Sodium Chloride 3% for Inhalation 4 ML VIAL.NEB IH PRN (11:53)
--- NOTE | 2018-12-09 22:34 | CON ---
DATE: 12/09/2018 HISTORY OF PRESENT ILLNESS: Ms. Hernandez is a 58-year-old female who was referred for pulmonary evaluation. She was admitted because of shortness of breath, exercise intolerance and cough for the past several days prior to presentation, worse on the day of admission. She indicates that she has a history of lymphangioleiomyomatosis (JIMENEZ), chronic obstructive pulmonary disease, endometriosis, depression, chronic fatigue syndrome and has been on prednisone at home. She was tapering her prednisone but symptoms, however, worsened including shortness of breath, exercise intolerance and thick tenacious mucus production. She is also on BiPAP treatment at home and indicates that she has been very compliant to it. She is very apprehensive during questioning and blames all her problems on her lymphangioleiomyomatosis. FAMILY HISTORY: Noncontributory. SOCIAL HISTORY: She quit smoking 3 years ago. Does not drink or use drugs. REVIEW OF SYSTEMS: Essentially remarkable for shortness of breath and exercise intolerance. PHYSICAL EXAMINATION: GENERAL: The patient is alert and oriented, appears to be apprehensive. VITAL SIGNS: Blood pressure 144/94 with a pulse of 105, respiratory rate 20. She is febrile with a temperature of 97.9 degrees Fahrenheit, O2 sat 99%. SKIN: Shows fair turgor. HEENT: Pupils are equal, round and reactive to light and accommodation. Mouth shows fair hygiene with mucous engorgement of pharynx. LUNGS: Poor aeration bilaterally with wheezing and rales, dullness at both bases. HEART: Regular. ABDOMEN: Soft, nontender. No organomegaly. EXTREMITIES: Show no edema or cyanosis. CENTRAL NERVOUS SYSTEM: Essentially unremarkable. LABORATORY DATA: Remarkable for WBC of 12.7, hemoglobin 12.3, platelet count 435,000. Sodium 142, potassium 3.7, BUN of 15, creatinine 0.5, serum glucose 108. Arterial blood gas: pH of 7.33, pCO2 of 66, pO2 of 74, O2 saturation of 96.9. Chest x-ray is remarkable for COPD pattern; no other gross abnormality revealed. IMPRESSION: Acute exacerbation of chronic obstructive pulmonary disease, lymphangioleiomyomatosis. PLAN: Intravenous steroids and aerosolized bronchodilators. Continue BiPAP therapy as already ordered. Obtain sputum for Gram stain and cultures. We will continue with aerosolized bronchodilators and oxygen. We will continue to follow with you. Konstantin Benites MD [facility] # [id number]
[2018-12-10] MEDS: Albuterol-Ipratrop 3 mg / 0.5 (3 ml) UD INH SCH ×6 (03:31→23:12)
[2018-12-10] MEDS: guaiFENesin 600 mg ER Tab PO PRN (04:12)
[2018-12-10] MEDS: Pantoprazole 40 mg EC Tab PO SCH (08:42)
[2018-12-10] MEDS: Enoxaparin 40 mg Syringe SC SCH (08:43)
[2018-12-10] MEDS: acetaZOLAMIDE 500 mg SR Cap PO SCH ×2 (08:44→21:43)
[2018-12-10] MEDS: SIROLIMUS 1 MG PO SCH (08:55)
[2018-12-10] MEDS ORDERED: Albuterol-Ipratrop 3 mg / 0.5 (3 ml) UD INH STA (10:10)
--- NOTE | 2018-12-10 10:20 | CARD ---
APPROVED REPORT Date of service: 12/08/2018 EKG Measurement Heart [id number] <Conclusion> Sinus tachycardia Otherwise normal ECG
--- NOTE | 2018-12-10 10:35 | CP.PCM.PN ---
Subjective - Date & Time of Evaluation Date of Evaluation: 12/10/18 Time of Evaluation: 10:15 - Subjective Subjective: No fever complains of SOB On Bipap at present 07/14/14/% Non compliant with her Bipap and was telling me that she knows more how to put on Bipap than a Resp Therapist denies CP no abd pain Objective - Vital Signs/Intake and Output Vital Signs (last 24 hours): Temp Pulse Resp BP Pulse Ox 98.2 F 86 20 154/95 H 97 12/10/18 08:10 12/10/18 08:10 12/10/18 08:10 12/10/18 08:10 12/10/18 08:10 - Medications Medications: Current Medications Acetaminophen (Tylenol 325mg Tab) 650 mg PO Q6 PRN PRN Reason: Pain, Mild (1-3) Acetazolamide (Diamox Sequels 500 Mg Sr Cap) 500 mg PO Q12 [facility] Last Admin: 12/10/18 08:44 Dose: 500 mg Albuterol/Ipratropium (Duoneb 3 Mg/0.5 Mg (3 Ml) Ud) 3 ml INH RQ4 [facility] Last Admin: 12/10/18 07:27 Dose: 3 ml Alprazolam (Xanax) 0.25 mg PO Q8 PRN PRN Reason: Anxiety Stop: 12/15/18 23:26 Last Admin: 12/10/18 07:59 Dose: 0.25 mg Atorvastatin Calcium (Lipitor) 10 mg PO HS [facility] Last Admin: 12/09/18 21:53 Dose: 10 mg Clotrimazole (Mycelex Bev) 10 mg PO 5XD PRN PRN Reason: Sore Throat Enoxaparin Sodium (Lovenox) 40 mg SC DAILY [facility]; Protocol Last Admin: 12/10/18 08:43 Dose: 40 mg Fluticasone Propionate (Flonase) 1 spr KIRBY BID PRN PRN Reason: Nasal congestion Last Admin: 12/09/18 09:30 Dose: 1 spr Guaifenesin (Mucinex La) 600 mg PO Q8 PRN PRN Reason: Cough Last Admin: 12/10/18 04:12 Dose: 600 mg Home Med (Sirolimus [Sirolimus]) 1 mg PO DAILY@0900 [facility] Last Admin: 12/10/18 08:55 Dose: 1 mg Loratadine (Claritin) 10 mg PO Q12 PRN PRN Reason: Allergy symptoms Methylprednisolone (Solu-Medrol) 60 mg IVP Q12 [facility] Last Admin: 12/10/18 08:54 Dose: 60 mg Oxycodone/Acetaminophen (Percocet 5/325 Mg Tab) 1 tab PO Q6 PRN PRN Reason: Pain, moderate (4-7) Stop: 12/12/18 03:33 Last Admin: 12/09/18 22:01 Dose: 1 tab Pantoprazole Sodium (Protonix Ec Tab) 40 mg PO DAILY [facility] Last Admin: 12/10/18 08:42 Dose: 40 mg - Labs Labs: 12/09/18 05:31 12/09/18 05:31 - Constitutional Appears: Non-toxic, No Acute Distress - Head Exam Head Exam: ATRAUMATIC, NORMAL INSPECTION, NORMOCEPHALIC - Eye Exam Eye Exam: EOMI, Normal appearance Pupil Exam: NORMAL ACCOMMODATION - ENT Exam ENT Exam: Mucous Membranes Dry, Normal External Ear Exam - Neck Exam Neck Exam: Full ROM. absent: Meningismus - Respiratory Exam Respiratory Exam: Decreased Breath Sounds. absent: Respiratory Distress no wheeze - Cardiovascular Exam Cardiovascular Exam: REGULAR RHYTHM, +S1, +S2 - GI/Abdominal Exam GI & Abdominal Exam: Soft, Normal Bowel Sounds. absent: Tenderness - Extremities Exam Extremities Exam: Normal Capillary Refill, Pedal Edema (trace pedal edema). absent: Calf Tenderness - Back Exam Back Exam: Full ROM. absent: CVA tenderness (L), CVA tenderness (R) - Neurological Exam Neurological Exam: Alert, Awake, CN II-XII Intact, Oriented x3 Neuro motor strength exam: Left Upper Extremity: 5, Right Upper Extremity: 5, Left Lower Extremity: 5, Right Lower Extremity: 5 - Psychiatric Exam Psychiatric exam: Flat Affect - Skin Skin Exam: Dry, Normal Color, Warm Assessment and Plan (1) Acute on chronic respiratory failure with hypoxia and hypercapnia Status: Acute (2) COPD exacerbation Status: Acute (3) Lymphangioleiomyomatosis Status: Chronic - Assessment and Plan (Free Text) Plan: (1) Acute on chronic respiratory failure with hypoxia and hypercapnia (2) COPD exacerbation (3) Lymphangioleiomyomatosis - Pt is on Bipap 10/5/14/30% - cont IV Solumedrol 60 mg q 12 and Duoneb RTC - cont Sirolimus , check level -Pulmonary consulted - cont Diamox
--- NOTE | 2018-12-10 10:46 | CP.PCM.PN ---
Subjective - Date & Time of Evaluation Date of Evaluation: 12/10/18 Time of Evaluation: 10:47 - Subjective Subjective: CONFRONTATIONAL AND APPREHENSIVE STILL C/O SOB REFUSING TO COMPLY WITH RESPIRATORY THERAPIST INSTRUCTIONS ON PROPER USE OF BIPAP MACHINE Objective - Vital Signs/Intake and Output Vital Signs (last 24 hours): Temp Pulse Resp BP Pulse Ox 98.2 F 86 20 154/95 H 97 12/10/18 08:10 12/10/18 08:10 12/10/18 08:10 12/10/18 08:10 12/10/18 08:10 - Medications Medications: Current Medications Acetaminophen (Tylenol 325mg Tab) 650 mg PO Q6 PRN PRN Reason: Pain, Mild (1-3) Acetazolamide (Diamox Sequels 500 Mg Sr Cap) 500 mg PO Q12 [facility] Last Admin: 12/10/18 08:44 Dose: 500 mg Albuterol/Ipratropium (Duoneb 3 Mg/0.5 Mg (3 Ml) Ud) 3 ml INH RQ4 [facility] Last Admin: 12/10/18 07:27 Dose: 3 ml Alprazolam (Xanax) 0.25 mg PO Q8 PRN PRN Reason: Anxiety Stop: 12/15/18 23:26 Last Admin: 12/10/18 07:59 Dose: 0.25 mg Atorvastatin Calcium (Lipitor) 10 mg PO HS [facility] Last Admin: 12/09/18 21:53 Dose: 10 mg Clotrimazole (Mycelex Bev) 10 mg PO 5XD PRN PRN Reason: Sore Throat Enoxaparin Sodium (Lovenox) 40 mg SC DAILY [facility]; Protocol Last Admin: 12/10/18 08:43 Dose: 40 mg Fluticasone Propionate (Flonase) 1 spr KIRBY BID PRN PRN Reason: Nasal congestion Last Admin: 12/09/18 09:30 Dose: 1 spr Guaifenesin (Mucinex La) 600 mg PO Q8 PRN PRN Reason: Cough Last Admin: 12/10/18 04:12 Dose: 600 mg Home Med (Sirolimus [Sirolimus]) 1 mg PO DAILY@0900 [facility] Last Admin: 12/10/18 08:55 Dose: 1 mg Loratadine (Claritin) 10 mg PO Q12 PRN PRN Reason: Allergy symptoms Methylprednisolone (Solu-Medrol) 60 mg IVP Q12 [facility] Last Admin: 12/10/18 08:54 Dose: 60 mg Oxycodone/Acetaminophen (Percocet 5/325 Mg Tab) 1 tab PO Q6 PRN PRN Reason: Pain, moderate (4-7) Stop: 12/12/18 03:33 Last Admin: 12/09/18 22:01 Dose: 1 tab Pantoprazole Sodium (Protonix Ec Tab) 40 mg PO DAILY [facility] Last Admin: 12/10/18 08:42 Dose: 40 mg - Labs Labs: 12/09/18 05:31 12/09/18 05:31 - Constitutional Appears: Chronically Ill - Head Exam Head Exam: ATRAUMATIC, NORMAL INSPECTION, NORMOCEPHALIC - Eye Exam Eye Exam: EOMI, Normal appearance, PERRL Pupil Exam: NORMAL ACCOMODATION, PERRL - ENT Exam ENT Exam: Mucous Membranes Moist, Normal Exam - Neck Exam Neck Exam: Full ROM, Normal Inspection. absent: Lymphadenopathy - Respiratory Exam Respiratory Exam: Decreased Breath Sounds, Prolonged Expiratory Phase, Rales, Wheezes Additional comments: ON BIPAP - Cardiovascular Exam Cardiovascular Exam: REGULAR RHYTHM, +S1, +S2. absent: Murmur - GI/Abdominal Exam GI & Abdominal Exam: Soft, Normal Bowel Sounds. absent: Tenderness - Rectal Exam Rectal Exam: NORMAL INSPECTION - Extremities Exam Extremities Exam: Full ROM, Normal Capillary Refill, Normal Inspection. absent: Joint Swelling, Pedal Edema - Back Exam Back Exam: NORMAL INSPECTION - Neurological Exam Neurological Exam: Alert, Awake, CN II-XII Intact, Normal Gait, Oriented x3 - Psychiatric Exam Psychiatric exam: Normal Affect, Normal Mood - Skin Skin Exam: Dry, Intact, Normal Color, Warm Assessment and Plan - Assessment and Plan (Free Text) Assessment: ACUTE EXAC OF COPD JIMENEZ ANXIETY/APPREHENSION Plan: ADVISED COMPLIANCE CONTINUE RX ORDERED
[2018-12-10] MEDS: Oxycodone/Acetaminophen 5/325 mg Tab PO PRN ×2 (11:02→18:46)
[2018-12-10] MEDS: Albuterol-Ipratrop 3 mg / 0.5 (3 ml) UD INH PRN (14:31)
[2018-12-10] MEDS ORDERED: methylPREDNISolone 40 MG in Sodium Chloride 0.9% 50 ML IVPB STA (17:30)
[2018-12-10] MEDS ORDERED: MethylPREDNISolone 40 mg Vial IVP ONE (17:45)
[2018-12-11] MEDS: Albuterol-Ipratrop 3 mg / 0.5 (3 ml) UD INH PRN ×3 (01:25→14:15)
[2018-12-11] MEDS: Albuterol-Ipratrop 3 mg / 0.5 (3 ml) UD INH SCH ×7 (04:17→23:29)
[2018-12-11] MEDS: Oxycodone/Acetaminophen 5/325 mg Tab PO PRN ×2 (05:50→15:49)
[2018-12-11] MEDS: acetaZOLAMIDE 500 mg SR Cap PO SCH ×2 (09:03→21:43)
[2018-12-11] MEDS: Pantoprazole 40 mg EC Tab PO SCH (09:03)
[2018-12-11] MEDS: Enoxaparin 40 mg Syringe SC SCH (09:04)
[2018-12-11] MEDS: SIROLIMUS 1 MG PO SCH (09:04)
--- NOTE | 2018-12-11 09:49 | CP.PCM.PN ---
<Keith Jones - Last Filed: 12/11/18 11:56> Subjective - Date & Time of Evaluation Date of Evaluation: 12/11/18 Time of Evaluation: 08:00 - Subjective Subjective: Pt seen and examined at bedside this am with BIPAP mask on. Denies acute overnight events. Breathing well with BIPAP. Tolerating PO diet. Afebrile. Objective - Vital Signs/Intake and Output Vital Signs (last 24 hours): Temp Pulse Resp BP Pulse Ox 97.9 F 68 20 128/80 97 12/11/18 08:28 12/11/18 08:28 12/11/18 08:28 12/11/18 08:28 12/11/18 08:28 - Medications Medications: Current Medications Acetaminophen (Tylenol 325mg Tab) 650 mg PO Q6 PRN PRN Reason: Pain, Mild (1-3) Acetazolamide (Diamox Sequels 500 Mg Sr Cap) 500 mg PO Q12 [facility] Last Admin: 12/11/18 09:03 Dose: 500 mg Albuterol/Ipratropium (Duoneb 3 Mg/0.5 Mg (3 Ml) Ud) 3 ml INH RQ4 [facility] Last Admin: 12/11/18 06:54 Dose: 3 ml Albuterol/Ipratropium (Duoneb 3 Mg/0.5 Mg (3 Ml) Ud) 3 ml INH RQ4 PRN PRN Reason: Shortness of Breath Last Admin: 12/11/18 01:25 Dose: 3 ml Alprazolam (Xanax) 0.25 mg PO Q8 PRN PRN Reason: Anxiety Stop: 12/15/18 23:26 Last Admin: 12/11/18 09:18 Dose: 0.25 mg Atorvastatin Calcium (Lipitor) 10 mg PO HS [facility] Last Admin: 12/10/18 21:43 Dose: 10 mg Benzonatate (Tessalon Perles) 100 mg PO Q8 PRN PRN Reason: Cough Last Admin: 12/11/18 02:10 Dose: 100 mg Clotrimazole (Mycelex Bev) 10 mg PO 5XD PRN PRN Reason: Sore Throat Enoxaparin Sodium (Lovenox) 40 mg SC DAILY [facility]; Protocol Last Admin: 12/11/18 09:04 Dose: 40 mg Fluticasone Propionate (Flonase) 1 spr KIRBY BID PRN PRN Reason: Nasal congestion Last Admin: 12/09/18 09:30 Dose: 1 spr Guaifenesin (Mucinex La) 600 mg PO Q8 PRN PRN Reason: Cough Last Admin: 12/10/18 04:12 Dose: 600 mg Home Med (Sirolimus [Sirolimus]) 1 mg PO DAILY@0900 [facility] Last Admin: 12/11/18 09:04 Dose: 1 mg Loratadine (Claritin) 10 mg PO Q12 PRN PRN Reason: Allergy symptoms Methylprednisolone (Solu-Medrol) 60 mg IVP Q12 [facility] Last Admin: 12/11/18 09:00 Dose: 60 mg Oxycodone/Acetaminophen (Percocet 5/325 Mg Tab) 1 tab PO Q6 PRN PRN Reason: Pain, moderate (4-7) Stop: 12/12/18 03:33 Last Admin: 12/11/18 05:50 Dose: 1 tab Pantoprazole Sodium (Protonix Ec Tab) 40 mg PO DAILY [facility] Last Admin: 12/11/18 09:03 Dose: 40 mg - Labs Labs: 12/09/18 05:31 12/09/18 05:31 - Eye Exam Eye Exam: EOMI - Respiratory Exam Respiratory Exam: Decreased Breath Sounds, Wheezes Additional comments: on BIPAP - Cardiovascular Exam Cardiovascular Exam: +S1, +S2 - GI/Abdominal Exam GI & Abdominal Exam: Soft. absent: Tenderness - Extremities Exam Extremities Exam: absent: Calf Tenderness - Neurological Exam Neurological Exam: Alert, Awake - Psychiatric Exam Psychiatric exam: Normal Affect, Normal Mood Assessment and Plan - Assessment and Plan (Free Text) Assessment: 58 year old female with PMHx of COPD, JIMENEZ (lymphangioleiomyomatosis), endometriosis, depression and chronic fatigue syndrome admitted for worsening s hortness of breath. Plan: Advanced COPD/Lymphangioleiomyomatosis Acute on Chronic respiratory failure - S/P duoneb x 3, mag 2gm and solumedrol 60 mg IVP in ED - on BIPAP - Employment Services Director Dr. Interiano - c/w DuoNEB Q4, - Tapered solumedrol 30 mg IVP Q12 - c/w Sirolimus: from home; f/u levels: pending - c/w Diamox - F/U Sputum culture; ABG, procalcitonin and AM labs Chronic Pain syndrome - c/w percocet and tylenol - PT/OT Anxiety - c/w Xanax 0.25 PRN DVT prophylaxis - Lovenox 40 mg sc daily SW: Further discharge planning in progress. Case and plan d/w Dr. Mikael Jones MD PGY2 <Colleen Youssef - Last Filed: 12/11/18 14:48> Objective - Vital Signs/Intake and Output Vital Signs (last 24 hours): Temp Pulse Resp BP Pulse Ox 97.9 F 80 20 128/80 97 12/11/18 08:28 12/11/18 11:20 12/11/18 08:28 12/11/18 08:28 12/11/18 08:28 - Medications Medications: Current Medications Acetaminophen (Tylenol 325mg Tab) 650 mg PO Q6 PRN PRN Reason: Pain, Mild (1-3) Acetazolamide (Diamox Sequels 500 Mg Sr Cap) 500 mg PO Q12 [facility] Last Admin: 12/11/18 09:03 Dose: 500 mg Albuterol/Ipratropium (Duoneb 3 Mg/0.5 Mg (3 Ml) Ud) 3 ml INH RQ4 [facility] Last Admin: 12/11/18 11:20 Dose: 3 ml Albuterol/Ipratropium (Duoneb 3 Mg/0.5 Mg (3 Ml) Ud) 3 ml INH RQ4 PRN PRN Reason: Shortness of Breath Last Admin: 12/11/18 14:15 Dose: 3 ml Alprazolam (Xanax) 0.25 mg PO Q8 PRN PRN Reason: Anxiety Stop: 12/15/18 23:26 Last Admin: 12/11/18 09:18 Dose: 0.25 mg Atorvastatin Calcium (Lipitor) 10 mg PO HS [facility] Last Admin: 12/10/18 21:43 Dose: 10 mg Benzonatate (Tessalon Perles) 100 mg PO Q8 PRN PRN Reason: Cough Last Admin: 12/11/18 02:10 Dose: 100 mg Clotrimazole (Mycelex Bev) 10 mg PO 5XD PRN PRN Reason: Sore Throat Enoxaparin Sodium (Lovenox) 40 mg SC DAILY [facility]; Protocol Last Admin: 12/11/18 09:04 Dose: 40 mg Fluticasone Propionate (Flonase) 1 spr KIRBY BID PRN PRN Reason: Nasal congestion Last Admin: 12/09/18 09:30 Dose: 1 spr Guaifenesin (Mucinex La) 600 mg PO Q8 PRN PRN Reason: Cough Last Admin: 12/10/18 04:12 Dose: 600 mg Home Med (Sirolimus [Sirolimus]) 1 mg PO DAILY@0900 [facility] Last Admin: 12/11/18 09:04 Dose: 1 mg Loratadine (Claritin) 10 mg PO Q12 PRN PRN Reason: Allergy symptoms Last Admin: 12/11/18 11:42 Dose: 10 mg Methylprednisolone (Solu-Medrol) 30 mg IVP Q12 [facility] Oxycodone/Acetaminophen (Percocet 5/325 Mg Tab) 1 tab PO Q6 PRN PRN Reason: Pain, moderate (4-7) Stop: 12/12/18 03:33 Last Admin: 12/11/18 05:50 Dose: 1 tab Pantoprazole Sodium (Protonix Ec Tab) 40 mg PO DAILY [facility] Last Admin: 12/11/18 09:03 Dose: 40 mg - Labs Labs: 12/09/18 05:31 12/09/18 05:31 Attending/Attestation - Attestation I have personally seen and examined this patient.: Yes I have fully participated in the care of the patient.: Yes I have reviewed all pertinent clinical information, including history, physical exam and plan: Yes Notes (Text): 12/11/18 14:48 agree with findings and plan as above. also discussed with Dr. Interiano and case management. Planning for discharge to [facility].
--- NOTE | 2018-12-11 11:01 | CP.PCM.PN ---
Subjective - Date & Time of Evaluation Date of Evaluation: 12/11/18 Time of Evaluation: 11:00 - Subjective Subjective: Seen on morning rounds. Seated up in bed, on BiPAP mask. Oxygenation and BP are good. Afebrile. Depressed facies, complains about being tired of chronic illness. Had been seen as outpatient 4 weeks ago. Has been on Sirolimus with dose adjusted down to 1MG POOD. Follow up blood level is pending. Wearing BiPAP mask, awake, and answers all questions appropriately. + dependant edema of both LEs, no cyanosis, no ecchymosis. No palpable lymphadenopathy. Pharynx is pink and moist w/o exudate. Neck is supple and trachea midline. No dullness on chest percussion. Breath sounds are diminished bilaterally. No audible wheezes or bronchial breath sounds. Few lower lobe dry rales bilaterally. Advanced chronic lung disease with JIMENEZ and COPD overlap. Depressed mood. Will need oil heaterman BRANDEN or, better still would be LTACH. Once clinical status shows improvement, attempt to get in lung transplant program. Has been seen at [facility] previously. Objective - Vital Signs/Intake and Output Vital Signs (last 24 hours): Temp Pulse Resp BP Pulse Ox 97.9 F 68 20 128/80 97 12/11/18 08:28 12/11/18 08:28 12/11/18 08:28 12/11/18 08:28 12/11/18 08:28 - Medications Medications: Current Medications Acetaminophen (Tylenol 325mg Tab) 650 mg PO Q6 PRN PRN Reason: Pain, Mild (1-3) Acetazolamide (Diamox Sequels 500 Mg Sr Cap) 500 mg PO Q12 [facility] Last Admin: 12/11/18 09:03 Dose: 500 mg Albuterol/Ipratropium (Duoneb 3 Mg/0.5 Mg (3 Ml) Ud) 3 ml INH RQ4 [facility] Last Admin: 12/11/18 10:06 Dose: 3 ml Albuterol/Ipratropium (Duoneb 3 Mg/0.5 Mg (3 Ml) Ud) 3 ml INH RQ4 PRN PRN Reason: Shortness of Breath Last Admin: 12/11/18 10:07 Dose: 3 ml Alprazolam (Xanax) 0.25 mg PO Q8 PRN PRN Reason: Anxiety Stop: 12/15/18 23:26 Last Admin: 12/11/18 09:18 Dose: 0.25 mg Atorvastatin Calcium (Lipitor) 10 mg PO HS [facility] Last Admin: 12/10/18 21:43 Dose: 10 mg Benzonatate (Tessalon Perles) 100 mg PO Q8 PRN PRN Reason: Cough Last Admin: 12/11/18 02:10 Dose: 100 mg Clotrimazole (Mycelex Bev) 10 mg PO 5XD PRN PRN Reason: Sore Throat Enoxaparin Sodium (Lovenox) 40 mg SC DAILY [facility]; Protocol Last Admin: 12/11/18 09:04 Dose: 40 mg Fluticasone Propionate (Flonase) 1 spr KIRBY BID PRN PRN Reason: Nasal congestion Last Admin: 12/09/18 09:30 Dose: 1 spr Guaifenesin (Mucinex La) 600 mg PO Q8 PRN PRN Reason: Cough Last Admin: 12/10/18 04:12 Dose: 600 mg Home Med (Sirolimus [Sirolimus]) 1 mg PO DAILY@0900 [facility] Last Admin: 12/11/18 09:04 Dose: 1 mg Methylprednisolone 30 mg/ (Sodium Chloride) 50 mls @ 100 mls/hr IV Q12 [facility] Loratadine (Claritin) 10 mg PO Q12 PRN PRN Reason: Allergy symptoms Oxycodone/Acetaminophen (Percocet 5/325 Mg Tab) 1 tab PO Q6 PRN PRN Reason: Pain, moderate (4-7) Stop: 12/12/18 03:33 Last Admin: 12/11/18 05:50 Dose: 1 tab Pantoprazole Sodium (Protonix Ec Tab) 40 mg PO DAILY [facility] Last Admin: 12/11/18 09:03 Dose: 40 mg - Labs Labs: 12/09/18 05:31 12/09/18 05:31 Assessment and Plan (1) COPD (chronic obstructive pulmonary disease) Status: Chronic (2) Depressed mood Status: Acute (3) SOB (shortness of breath) Status: Chronic (4) Lymphangioleiomyomatosis Status: Chronic
[2018-12-11] MEDS ORDERED: methylPREDNISolone 30 MG in Sodium Chloride 0.9% 50 ML IV SCH (21:00)
[2018-12-11] MEDS: MethylPREDNISolone 40 mg Vial IVP SCH (21:43)
[2018-12-12] MEDS: Albuterol-Ipratrop 3 mg / 0.5 (3 ml) UD INH SCH ×6 (03:47→23:19)
[2018-12-12] MEDS: Enoxaparin 40 mg Syringe SC SCH (08:59)
[2018-12-12] MEDS: acetaZOLAMIDE 500 mg SR Cap PO SCH ×2 (08:59→21:12)
[2018-12-12] MEDS: SIROLIMUS 1 MG PO SCH (09:00)
[2018-12-12] MEDS: Pantoprazole 40 mg EC Tab PO SCH (09:00)
[2018-12-12] MEDS: MethylPREDNISolone 40 mg Vial IVP SCH ×2 (09:00→14:11)
--- NOTE | 2018-12-12 09:41 | CP.PCM.PN ---
<Keith Jones - Last Filed: 12/12/18 14:37> Subjective - Date & Time of Evaluation Date of Evaluation: 12/12/18 Time of Evaluation: 08:30 - Subjective Subjective: Pt seen and examined at bedside. BIPAP. Denies acute overnight events. Reports respiratory symptoms have remained the same. Objective - Vital Signs/Intake and Output Vital Signs (last 24 hours): Temp Pulse Resp BP Pulse Ox 98.1 F 93 H 20 149/81 95 12/12/18 08:29 12/12/18 08:29 12/12/18 08:29 12/12/18 08:29 12/12/18 08:29 - Medications Medications: Current Medications Acetaminophen (Tylenol 325mg Tab) 650 mg PO Q6 PRN PRN Reason: Pain, Mild (1-3) Acetazolamide (Diamox Sequels 500 Mg Sr Cap) 500 mg PO Q12 [facility] Last Admin: 12/12/18 08:59 Dose: 500 mg Albuterol/Ipratropium (Duoneb 3 Mg/0.5 Mg (3 Ml) Ud) 3 ml INH RQ4 [facility] Last Admin: 12/12/18 07:12 Dose: 3 ml Albuterol/Ipratropium (Duoneb 3 Mg/0.5 Mg (3 Ml) Ud) 3 ml INH RQ4 PRN PRN Reason: Shortness of Breath Last Admin: 12/11/18 14:15 Dose: 3 ml Alprazolam (Xanax) 0.25 mg PO Q8 PRN PRN Reason: Anxiety Stop: 12/15/18 23:26 Last Admin: 12/11/18 23:33 Dose: 0.25 mg Atorvastatin Calcium (Lipitor) 10 mg PO HS [facility] Last Admin: 12/11/18 21:42 Dose: 10 mg Benzonatate (Tessalon Perles) 100 mg PO Q8 PRN PRN Reason: Cough Last Admin: 12/11/18 02:10 Dose: 100 mg Clotrimazole (Mycelex Bev) 10 mg PO 5XD PRN PRN Reason: Sore Throat Enoxaparin Sodium (Lovenox) 40 mg SC DAILY [facility]; Protocol Last Admin: 12/12/18 08:59 Dose: 40 mg Fluticasone Propionate (Flonase) 1 spr KIBRY BID PRN PRN Reason: Nasal congestion Last Admin: 12/09/18 09:30 Dose: 1 spr Guaifenesin (Mucinex La) 600 mg PO Q8 PRN PRN Reason: Cough Last Admin: 12/10/18 04:12 Dose: 600 mg Home Med (Sirolimus [Sirolimus]) 1 mg PO DAILY@0900 [facility] Last Admin: 12/12/18 09:00 Dose: 1 mg Loratadine (Claritin) 10 mg PO Q12 PRN PRN Reason: Allergy symptoms Last Admin: 12/11/18 11:42 Dose: 10 mg Methylprednisolone (Solu-Medrol) 30 mg IVP Q12 [facility] Last Admin: 12/12/18 09:00 Dose: 30 mg Oxycodone/Acetaminophen (Percocet 5/325 Mg Tab) 1 tab PO Q6 PRN PRN Reason: Pain, moderate (4-7) Stop: 12/15/18 09:30 Pantoprazole Sodium (Protonix Ec Tab) 40 mg PO DAILY [facility] Last Admin: 12/12/18 09:00 Dose: 40 mg - Labs Labs: 12/09/18 05:31 12/09/18 05:31 - Constitutional Appears: No Acute Distress - Eye Exam Eye Exam: EOMI - ENT Exam ENT Exam: Mucous Membranes Moist - Respiratory Exam Respiratory Exam: Decreased Breath Sounds - Cardiovascular Exam Cardiovascular Exam: +S1, +S2 - GI/Abdominal Exam GI & Abdominal Exam: Soft, Normal Bowel Sounds. absent: Tenderness - Neurological Exam Neurological Exam: Alert, Awake, CN II-XII Intact - Psychiatric Exam Psychiatric exam: Normal Affect, Normal Mood Assessment and Plan - Assessment and Plan (Free Text) Assessment: 58 year old female with PMHx of COPD, JIMENEZ (lymphangioleiomyomatosis), endometriosis, depression and chronic fatigue syndrome admitted for worsening shortness of breath. Plan: Advanced COPD/Lymphangioleiomyomatosis Acute on Chronic respiratory failure - S/P duoneb x 3, mag 2gm and solumedrol 60 mg IVP in ED - on BIPAP - [employer]crete Plant [employer] Dr. Interiano - c/w DuoNEB Q4, - Tapered solumedrol 20 mg IVP Q12 - c/w Sirolimus: from home; f/u levels: pending - c/w Diamox - F/U Sputum culture; ABG, procalcitonin and AM labs Chronic Pain syndrome - c/w percocet and tylenol - PT/OT Anxiety - c/w Xanax 0.25 PRN DVT prophylaxis - Lovenox 40 mg sc daily SW: Further discharge planning in progress: LTACH/[facility], however, pt refusing. Case and plan d/w Dr. Mikael Jones MD PGY2 <MikaelColleen - Last Filed: 12/12/18 18:57> Objective - Vital Signs/Intake and Output Vital Signs (last 24 hours): Temp Pulse Resp BP Pulse Ox 97.9 F 110 H 20 141/86 94 L 12/12/18 18:11 12/12/18 18:11 12/12/18 18:11 12/12/18 18:11 12/12/18 18:11 - Medications Medications: Current Medications Acetaminophen (Tylenol 325mg Tab) 650 mg PO Q6 PRN PRN Reason: Pain, Mild (1-3) Acetazolamide (Diamox Sequels 500 Mg Sr Cap) 500 mg PO Q12 [facility] Last Admin: 12/12/18 08:59 Dose: 500 mg Albuterol/Ipratropium (Duoneb 3 Mg/0.5 Mg (3 Ml) Ud) 3 ml INH RQ4 [facility] Last Admin: 12/12/18 15:27 Dose: 3 ml Albuterol/Ipratropium (Duoneb 3 Mg/0.5 Mg (3 Ml) Ud) 3 ml INH RQ4 PRN PRN Reason: Shortness of Breath Last Admin: 12/12/18 13:07 Dose: 3 ml Alprazolam (Xanax) 0.25 mg PO Q8 PRN PRN Reason: Anxiety Stop: 12/15/18 23:26 Last Admin: 12/12/18 14:10 Dose: 0.25 mg Atorvastatin Calcium (Lipitor) 10 mg PO HS [facility] Last Admin: 12/11/18 21:42 Dose: 10 mg Benzonatate (Tessalon Perles) 100 mg PO Q8 PRN PRN Reason: Cough Last Admin: 12/11/18 02:10 Dose: 100 mg Clotrimazole (Mycelex Bve) 10 mg PO 5XD PRN PRN Reason: Sore Throat Enoxaparin Sodium (Lovenox) 40 mg SC DAILY [facility]; Protocol Last Admin: 12/12/18 08:59 Dose: 40 mg Fluticasone Propionate (Flonase) 1 spr KIRBY BID PRN PRN Reason: Nasal congestion Last Admin: 12/12/18 14:24 Dose: 1 spr Guaifenesin (Mucinex La) 600 mg PO Q8 PRN PRN Reason: Cough Last Admin: 12/10/18 04:12 Dose: 600 mg Home Med (Sirolimus [Sirolimus]) 1 mg PO DAILY@0900 [facility] Last Admin: 12/12/18 09:00 Dose: 1 mg Loratadine (Claritin) 10 mg PO Q12 PRN PRN Reason: Allergy symptoms Last Admin: 12/11/18 11:42 Dose: 10 mg Methylprednisolone (Solu-Medrol) 20 mg IVP Q12H [facility] Last Admin: 12/12/18 14:11 Dose: 20 mg Oxycodone/Acetaminophen (Percocet 5/325 Mg Tab) 1 tab PO Q6 PRN PRN Reason: Pain, moderate (4-7) Stop: 12/15/18 09:30 Last Admin: 12/12/18 09:52 Dose: 1 tab Pantoprazole Sodium (Protonix Ec Tab) 40 mg PO DAILY [facility] Last Admin: 12/12/18 09:00 Dose: 40 mg - Labs Labs: 12/09/18 05:31 12/09/18 05:31 Attending/Attestation - Attestation I have personally seen and examined this patient.: Yes I have fully participated in the care of the patient.: Yes I have reviewed all pertinent clinical information, including history, physical exam and plan: Yes Notes (Text): 12/12/18 18:57 agree with findings and plan as above
[2018-12-12] MEDS: Oxycodone/Acetaminophen 5/325 mg Tab PO PRN (09:52)
[2018-12-12] MEDS: Albuterol-Ipratrop 3 mg / 0.5 (3 ml) UD INH PRN (13:07)
--- NOTE | 2018-12-12 13:38 | CP.PCM.PN ---
Subjective - Date & Time of Evaluation Date of Evaluation: 12/12/18 Time of Evaluation: 13:36 - Subjective Subjective: Seen on morning rounds. Interval events have been reviewed. Patient is refusing referral to LTACH and/or subacute rehabilitation. She also feels there is no need for psychiatric evaluation. She voices a strong determination to return directly to home from the hospital. Her physical examination is essentially unchanged from the day prior, although she does appear to be slightly stronger and more vocal and then yesterday. We'll continue to reduce corticosteroids as tolerated and prepared for discharge. Objective - Vital Signs/Intake and Output Vital Signs (last 24 hours): Temp Pulse Resp BP Pulse Ox 98.1 F 90 20 149/81 95 12/12/18 08:29 12/12/18 11:20 12/12/18 08:29 12/12/18 08:29 12/12/18 08:29 - Medications Medications: Current Medications Acetaminophen (Tylenol 325mg Tab) 650 mg PO Q6 PRN PRN Reason: Pain, Mild (1-3) Acetazolamide (Diamox Sequels 500 Mg Sr Cap) 500 mg PO Q12 [facility] Last Admin: 12/12/18 08:59 Dose: 500 mg Albuterol/Ipratropium (Duoneb 3 Mg/0.5 Mg (3 Ml) Ud) 3 ml INH RQ4 [facility] Last Admin: 12/12/18 11:18 Dose: 3 ml Albuterol/Ipratropium (Duoneb 3 Mg/0.5 Mg (3 Ml) Ud) 3 ml INH RQ4 PRN PRN Reason: Shortness of Breath Last Admin: 12/12/18 13:07 Dose: 3 ml Alprazolam (Xanax) 0.25 mg PO Q8 PRN PRN Reason: Anxiety Stop: 12/15/18 23:26 Last Admin: 12/11/18 23:33 Dose: 0.25 mg Atorvastatin Calcium (Lipitor) 10 mg PO HS [facility] Last Admin: 12/11/18 21:42 Dose: 10 mg Benzonatate (Tessalon Perles) 100 mg PO Q8 PRN PRN Reason: Cough Last Admin: 12/11/18 02:10 Dose: 100 mg Clotrimazole (Mycelex Bev) 10 mg PO 5XD PRN PRN Reason: Sore Throat Enoxaparin Sodium (Lovenox) 40 mg SC DAILY [facility]; Protocol Last Admin: 12/12/18 08:59 Dose: 40 mg Fluticasone Propionate (Flonase) 1 spr KIRBY BID PRN PRN Reason: Nasal congestion Last Admin: 12/09/18 09:30 Dose: 1 spr Guaifenesin (Mucinex La) 600 mg PO Q8 PRN PRN Reason: Cough Last Admin: 12/10/18 04:12 Dose: 600 mg Home Med (Sirolimus [Sirolimus]) 1 mg PO DAILY@0900 [facility] Last Admin: 12/12/18 09:00 Dose: 1 mg Loratadine (Claritin) 10 mg PO Q12 PRN PRN Reason: Allergy symptoms Last Admin: 12/11/18 11:42 Dose: 10 mg Methylprednisolone (Solu-Medrol) 30 mg IVP Q12 [facility] Last Admin: 12/12/18 09:00 Dose: 30 mg Oxycodone/Acetaminophen (Percocet 5/325 Mg Tab) 1 tab PO Q6 PRN PRN Reason: Pain, moderate (4-7) Stop: 12/15/18 09:30 Last Admin: 12/12/18 09:52 Dose: 1 tab Pantoprazole Sodium (Protonix Ec Tab) 40 mg PO DAILY [facility] Last Admin: 12/12/18 09:00 Dose: 40 mg - Labs Labs: 12/09/18 05:31 12/09/18 05:31 Assessment and Plan (1) COPD (chronic obstructive pulmonary disease) Status: Chronic (2) Depressed mood Status: Acute (3) SOB (shortness of breath) Status: Chronic (4) Lymphangioleiomyomatosis Status: Chronic
--- NOTE | 2018-12-12 15:11 | PQF ---
PROVIDER RESPONSE TEXT: Present on admission. REVIEWER QUERY TEXT: Present On Admission Please clarify the POA status of Acute on Chronic Respiratory Failure with hypoxia and hypercapnia -- Present on admission -- Not present on admission 12/09/18@02;23--- ABG: ph-7.33 pCO2-66 pO2-74 HCO3-30.0 on FIO2 32.0 12/08 ER note: SOB, worse with exertion over past 3 days.Has been increasing her dose of Prednisone and using BiPap with no improvement.Has been coughing productive clear sputum. Time: 2154 --Patient refusing CT, states she still feels short of breath Will admit patient for COPD exacerbation under hospitalist and medical service. H and P includes; PE: Can speak in short sentences Respiratory Exam: Respiratory Distress (mild;). --with COPD and JIMENEZ and anxiety/depression p/w increasing SOB despite taking po steroid and using bip ap at home. Patient with end-stage pulmonary disease. Will give IV steroid and will consult her pulmo nalogist. Overall prognosis guarded and not much more can be done. Only game changer at this point is transplant if patient deems to be a suitable candidate. 12/09 Attendin) Acute on chronic respiratory failure with hypoxia and hypercapnia (2) COPD exacerbation (3) Lymphangioleiomyomatosis - cont Oxygen per NC at 2-3 liters for now /Bipap prn - cont IV Solumedrol and Duoneb The patient's Clinical Indicators include: --- Query created by: Anabell Barrera on 12/11/2018 2:40 PM Electronically signed by: Keith Jones 12/12/2018 3:08 PM
[2018-12-12] MEDS ORDERED: methylPREDNISolone 20 MG in Sodium Chloride 0.9% 50 ML IV SCH (21:00)
[2018-12-13] MEDS: Oxycodone/Acetaminophen 5/325 mg Tab PO PRN ×3 (00:02→18:54)
[2018-12-13] MEDS: MethylPREDNISolone 40 mg Vial IVP SCH ×2 (01:43→14:06)
[2018-12-13] MEDS: Albuterol-Ipratrop 3 mg / 0.5 (3 ml) UD INH SCH ×6 (03:58→23:54)
[2018-12-13] MEDS: Enoxaparin 40 mg Syringe SC SCH (08:37)
[2018-12-13] MEDS: SIROLIMUS 1 MG PO SCH (08:37)
[2018-12-13] MEDS: Pantoprazole 40 mg EC Tab PO SCH (08:37)
[2018-12-13] MEDS: acetaZOLAMIDE 500 mg SR Cap PO SCH ×2 (08:38→21:47)
--- NOTE | 2018-12-13 11:08 | CP.PCM.DIS ---
Provider - Provider Date of Admission: 12/08/18 22:00 Attending physician: Martin Mascorro MD Consults: 12/08/18 23:29 Pulmonology Consult Routine Comment: Consulting Provider: Konstantin Benites I Consulting Physician: Konstantin Benites I Reason for Consult: Worsening dyspnea, COPD Time Spent in preparation of Discharge (in minutes): 30 Hospital Course - Lab Results Lab Results: Micro Results 12/10/18 07:55 Sputum Gram Stain - Final 12/10/18 07:55 Sputum Sputum Culture - Final Yeast Species Most Recent Lab Values WBC 9.9 K/uL (4.8-10.8) 12/09/18 05:31 RBC 4.31 Mil/uL (3.80-5.20) 12/09/18 05:31 Hgb 11.7 g/dL (12.0-16.0) L 12/09/18 05:31 Hct 36.7 % (34.0-47.0) 12/09/18 05:31 MCV 85.2 fl (81.0-99.0) 12/09/18 05:31 MCH 27.2 pg (27.0-31.0) 12/09/18 05:31 MCHC 31.9 g/dL (33.0-37.0) L 12/09/18 05:31 RDW 15.3 % (11.5-14.5) H 12/09/18 05:31 Plt Count 450 K/uL (130-400) H 12/09/18 05:31 MPV 7.5 fl (7.2-11.7) 12/09/18 05:31 Neut % (Auto) 85.9 % (50.0-75.0) H 12/09/18 05:31 Lymph % (Auto) 6.5 % (20.0-40.0) L 12/09/18 05:31 Miller % (Auto) 7.5 % (0.0-10.0) 12/09/18 05:31 Eos % (Auto) 0.0 % (0.0-4.0) 12/09/18 05:31 Baso % (Auto) 0.1 % (0.0-2.0) 12/09/18 05:31 Neut # (Auto) 8.5 K/uL (1.8-7.0) H 12/09/18 05:31 Lymph # (Auto) 0.6 K/uL (1.0-4.3) L 12/09/18 05:31 Miller # (Auto) 0.7 K/uL (0.0-0.8) 12/09/18 05:31 Eos # (Auto) 0.0 K/uL (0.0-0.7) 12/09/18 05:31 Baso # (Auto) 0.0 K/uL (0.0-0.2) 12/09/18 05:31 Neutrophils % (Manual) 85 % (42-75) H 12/08/18 16:10 Band Neutrophils % 3 % (0-2) H 12/08/18 16:10 Lymphocytes % (Manual) 5 % (20-50) L 12/08/18 16:10 Monocytes % (Manual) 7 % (0-10) 12/08/18 16:10 Platelet Estimate Normal (NORMAL) 12/08/18 16:10 Anisocytosis (manual) Slight 12/08/18 16:10 pCO2 66 mm/Hg (35-45) H 12/09/18 02:23 pO2 74 mm/Hg (80-100) L 12/09/18 02:23 HCO3 30.0 mmol/L (21-28) H 12/09/18 02:23 ABG pH 7.33 (7.35-7.45) L 12/09/18 02:23 ABG Total CO2 36.8 mmol/L (22-28) H 12/09/18 02:23 ABG O2 Saturation 96.9 % (95-98) 12/09/18 02:23 ABG Base Excess 6.6 mmol/L (-2.0-3.0) H 12/09/18 02:23 Contreras Test Yes 12/09/18 02:23 ABG Potassium 3.8 mmol/L (3.6-5.2) 12/09/18 02:23 A-a O2 Difference 72.0 mm/Hg 12/09/18 02:23 Sodium 143.0 mmol/L (132-148) 12/09/18 02:23 Chloride 108.0 mmol/L (98-107) H 12/09/18 02:23 Glucose 218 mg/dL (65-105) H 12/09/18 02:23 Lactate 1.5 mmol/L (0.7-2.1) 12/09/18 02:23 Vent Mode 3l nc 12/09/18 02:23 FiO2 32.0 % 12/09/18 02:23 Sodium 144 mmol/l (132-148) 12/09/18 05:31 Potassium 3.8 MMOL/L (3.6-5.0) 12/09/18 05:31 Chloride 102 mmol/L (98-107) 12/09/18 05:31 Carbon Dioxide 32 mmol/L (22-30) H 12/09/18 05:31 Anion Gap 14 (10-20) 12/09/18 05:31 BUN 15 mg/dl (7-17) 12/09/18 05:31 Creatinine 0.6 mg/dl (0.7-1.2) L 12/09/18 05:31 Est GFR ( Amer) > 60 12/09/18 05:31 Est GFR (Non-Af Amer) > 60 12/09/18 05:31 Random Glucose 154 mg/dL (65-105) H 12/09/18 05:31 Calcium 9.4 mg/dL (8.4-10.2) 12/09/18 05:31 Total Bilirubin 0.3 mg/dl (0.2-1.3) 12/08/18 16:10 AST 20 U/L (14-36) 12/08/18 16:10 ALT 23 U/L (9-52) 12/08/18 16:10 Alkaline Phosphatase 92 U/L (38-126) 12/08/18 16:10 Total Protein 7.2 G/DL (6.3-8.2) 12/08/18 16:10 Albumin 4.1 g/dL (3.5-5.0) 12/08/18 16:10 Globulin 3.0 gm/dL (2.2-3.9) 12/08/18 16:10 Albumin/Globulin Ratio 1.4 (1.0-2.1) 12/08/18 16:10 Procalcitonin < 0.05 NG/ML (0.19-0.49) L 12/09/18 05:31 Arterial Blood Potassium 3.8 mmol/L (3.6-5.2) 12/09/18 02:23 Discharge Exam - Head Exam Head Exam: ATRAUMATIC, NORMAL INSPECTION, NORMOCEPHALIC Discharge Plan - Follow Up Plan Condition: FAIR Disposition: HOME/ ROUTINE Instructions: Exacerbation of COPD (DC) Additional Instructions: follow up with your primary MD 1 week Referrals: Haleigh Cardona MD [Family Provider] - Konstantin Beniets MD [Staff Provider] -
[2018-12-13] MEDS: Albuterol-Ipratrop 3 mg / 0.5 (3 ml) UD INH PRN ×2 (14:27→17:59)
--- NOTE | 2018-12-13 15:19 | CP.PCM.PN ---
Subjective - Date & Time of Evaluation Date of Evaluation: 12/13/18 Time of Evaluation: 15:19 - Subjective Subjective: Has been on BiPAP mask NPPV doing fairly well. Mood is anxious and depressed/agitated at times. Remains on parenteral steroids, attempting reduction in dose. Had not tolerated weaning as outpatient using alternate day approach. Breath sounds are diminished with shortened inspiratory phase. No audible wheezes or bronchial breath sounds. Continue NPPV. Physicasl therapy as tolerated. Steroid withdrawal as tolerated. Objective - Vital Signs/Intake and Output Vital Signs (last 24 hours): Temp Pulse Resp BP Pulse Ox 98.2 F 88 20 135/79 100 12/13/18 08:38 12/13/18 14:29 12/13/18 08:38 12/13/18 08:38 12/13/18 08:38 - Medications Medications: Current Medications Acetaminophen (Tylenol 325mg Tab) 650 mg PO Q6 PRN PRN Reason: Pain, Mild (1-3) Acetazolamide (Diamox Sequels 500 Mg Sr Cap) 500 mg PO Q12 [facility] Last Admin: 12/13/18 08:38 Dose: 500 mg Albuterol/Ipratropium (Duoneb 3 Mg/0.5 Mg (3 Ml) Ud) 3 ml INH RQ4 [facility] Last Admin: 12/13/18 15:13 Dose: 3 ml Albuterol/Ipratropium (Duoneb 3 Mg/0.5 Mg (3 Ml) Ud) 3 ml INH RQ4 PRN PRN Reason: Shortness of Breath Last Admin: 12/13/18 14:27 Dose: 3 ml Alprazolam (Xanax) 0.25 mg PO Q8 PRN PRN Reason: Anxiety Stop: 12/15/18 23:26 Last Admin: 12/13/18 08:35 Dose: 0.25 mg Atorvastatin Calcium (Lipitor) 10 mg PO HS [facility] Last Admin: 12/12/18 21:12 Dose: 10 mg Benzonatate (Tessalon Perles) 100 mg PO Q8 PRN PRN Reason: Cough Last Admin: 12/11/18 02:10 Dose: 100 mg Clotrimazole (Mycelex Bev) 10 mg PO 5XD PRN PRN Reason: Sore Throat Enoxaparin Sodium (Lovenox) 40 mg SC DAILY [facility]; Protocol Last Admin: 12/13/18 08:37 Dose: 40 mg Fluticasone Propionate (Flonase) 1 spr KIRBY BID PRN PRN Reason: Nasal congestion Last Admin: 12/13/18 11:20 Dose: 1 spr Guaifenesin (Mucinex La) 600 mg PO Q8 PRN PRN Reason: Cough Last Admin: 12/10/18 04:12 Dose: 600 mg Home Med (Sirolimus [Sirolimus]) 1 mg PO DAILY@0900 [facility] Last Admin: 12/13/18 08:37 Dose: 1 mg Loratadine (Claritin) 10 mg PO Q12 PRN PRN Reason: Allergy symptoms Last Admin: 12/11/18 11:42 Dose: 10 mg Methylprednisolone (Solu-Medrol) 20 mg IVP Q12H [facility] Last Admin: 12/13/18 14:06 Dose: 20 mg Oxycodone/Acetaminophen (Percocet 5/325 Mg Tab) 1 tab PO Q6 PRN PRN Reason: Pain, moderate (4-7) Stop: 12/15/18 09:30 Last Admin: 12/13/18 09:30 Dose: 1 tab Pantoprazole Sodium (Protonix Ec Tab) 40 mg PO DAILY [facility] Last Admin: 12/13/18 08:37 Dose: 40 mg - Labs Labs: 12/09/18 05:31 12/09/18 05:31 Assessment and Plan (1) COPD (chronic obstructive pulmonary disease) Status: Chronic (2) Depressed mood Status: Acute (3) SOB (shortness of breath) Status: Chronic (4) Lymphangioleiomyomatosis Status: Chronic
--- NOTE | 2018-12-13 15:44 | CP.PCM.PN ---
<Keith Jones - Last Filed: 12/13/18 15:44> Subjective - Date & Time of Evaluation Date of Evaluation: 12/13/18 Time of Evaluation: 08:45 - Subjective Subjective: Pt seen and examined at bedside this AM. Denies acute overnight events. Pt reports improvement in respiratory function on BIPAP. Tolerating PO diet. Objective - Vital Signs/Intake and Output Vital Signs (last 24 hours): Temp Pulse Resp BP Pulse Ox 98.2 F 88 20 135/79 100 12/13/18 08:38 12/13/18 14:29 12/13/18 08:38 12/13/18 08:38 12/13/18 08:38 - Medications Medications: Current Medications Acetaminophen (Tylenol 325mg Tab) 650 mg PO Q6 PRN PRN Reason: Pain, Mild (1-3) Acetazolamide (Diamox Sequels 500 Mg Sr Cap) 500 mg PO Q12 [facility] Last Admin: 12/13/18 08:38 Dose: 500 mg Albuterol/Ipratropium (Duoneb 3 Mg/0.5 Mg (3 Ml) Ud) 3 ml INH RQ4 [facility] Last Admin: 12/13/18 15:13 Dose: 3 ml Albuterol/Ipratropium (Duoneb 3 Mg/0.5 Mg (3 Ml) Ud) 3 ml INH RQ4 PRN PRN Reason: Shortness of Breath Last Admin: 12/13/18 14:27 Dose: 3 ml Alprazolam (Xanax) 0.25 mg PO Q8 PRN PRN Reason: Anxiety Stop: 12/15/18 23:26 Last Admin: 12/13/18 08:35 Dose: 0.25 mg Atorvastatin Calcium (Lipitor) 10 mg PO HS [facility] Last Admin: 12/12/18 21:12 Dose: 10 mg Benzonatate (Tessalon Perles) 100 mg PO Q8 PRN PRN Reason: Cough Last Admin: 12/11/18 02:10 Dose: 100 mg Clotrimazole (Mycelex Bev) 10 mg PO 5XD PRN PRN Reason: Sore Throat Enoxaparin Sodium (Lovenox) 40 mg SC DAILY [facility]; Protocol Last Admin: 12/13/18 08:37 Dose: 40 mg Fluticasone Propionate (Flonase) 1 spr KIRBY BID PRN PRN Reason: Nasal congestion Last Admin: 12/13/18 11:20 Dose: 1 spr Guaifenesin (Mucinex La) 600 mg PO Q8 PRN PRN Reason: Cough Last Admin: 12/10/18 04:12 Dose: 600 mg Home Med (Sirolimus [Sirolimus]) 1 mg PO DAILY@0900 [facility] Last Admin: 12/13/18 08:37 Dose: 1 mg Loratadine (Claritin) 10 mg PO Q12 PRN PRN Reason: Allergy symptoms Last Admin: 12/11/18 11:42 Dose: 10 mg Methylprednisolone (Solu-Medrol) 20 mg IVP Q12H [facility] Last Admin: 12/13/18 14:06 Dose: 20 mg Oxycodone/Acetaminophen (Percocet 5/325 Mg Tab) 1 tab PO Q6 PRN PRN Reason: Pain, moderate (4-7) Stop: 12/15/18 09:30 Last Admin: 12/13/18 09:30 Dose: 1 tab Pantoprazole Sodium (Protonix Ec Tab) 40 mg PO DAILY [facility] Last Admin: 12/13/18 08:37 Dose: 40 mg - Labs Labs: 12/09/18 05:31 12/09/18 05:31 - Constitutional Appears: No Acute Distress - Eye Exam Eye Exam: EOMI - ENT Exam ENT Exam: Mucous Membranes Moist - Respiratory Exam Respiratory Exam: Decreased Breath Sounds - Cardiovascular Exam Cardiovascular Exam: +S1, +S2 - GI/Abdominal Exam GI & Abdominal Exam: Soft, Normal Bowel Sounds. absent: Tenderness - Neurological Exam Neurological Exam: Alert, Awake - Psychiatric Exam Psychiatric exam: Normal Affect, Normal Mood Assessment and Plan - Assessment and Plan (Free Text) Assessment: 58 year old female with PMHx of COPD, JIMENEZ (lymphangioleiomyomatosis), endometriosis, depression and chronic fatigue syndrome admitted for worsening shortness of breath. Plan: Advanced COPD/Lymphangioleiomyomatosis Acute on Chronic respiratory failure - S/P duoneb x 3, mag 2gm and solumedrol 60 mg IVP in ED - on BIPAP - Collections Representative Dr. Interiano - c/w DuoNEB Q4, - Tapered solumedrol 20 mg IVP Q12 - Sputum culture: yeast species - Clotrimazole 10 mg - c/w Sirolimus: from home; f/u levels: pending - c/w Diamox - F/U AM labs Chronic Pain syndrome - c/w percocet and tylenol - PT/OT Anxiety - c/w Xanax 0.25 PRN DVT prophylaxis - Lovenox 40 mg sc daily SW: Further discharge planning in progress: LTACH/BRANDEN, however, pt refusing. Case and plan d/w Dr. Jamie Jones MD PGY2 <Helen Ayala - Last Filed: 12/13/18 18:24> Objective - Vital Signs/Intake and Output Vital Signs (last 24 hours): Temp Pulse Resp BP Pulse Ox 97.9 F 84 18 137/84 98 12/13/18 16:47 12/13/18 18:01 12/13/18 16:47 12/13/18 16:47 12/13/18 16:47 - Medications Medications: Current Medications Acetaminophen (Tylenol 325mg Tab) 650 mg PO Q6 PRN PRN Reason: Pain, Mild (1-3) Acetazolamide (Diamox Sequels 500 Mg Sr Cap) 500 mg PO Q12 [facility] Last Admin: 12/13/18 08:38 Dose: 500 mg Albuterol/Ipratropium (Duoneb 3 Mg/0.5 Mg (3 Ml) Ud) 3 ml INH RQ4 [facility] Last Admin: 12/13/18 15:13 Dose: 3 ml Albuterol/Ipratropium (Duoneb 3 Mg/0.5 Mg (3 Ml) Ud) 3 ml INH RQ4 PRN PRN Reason: Shortness of Breath Last Admin: 12/13/18 17:59 Dose: 3 ml Alprazolam (Xanax) 0.25 mg PO Q8 PRN PRN Reason: Anxiety Stop: 12/15/18 23:26 Last Admin: 12/13/18 17:50 Dose: 0.25 mg Atorvastatin Calcium (Lipitor) 10 mg PO HS [facility] Last Admin: 12/12/18 21:12 Dose: 10 mg Benzonatate (Tessalon Perles) 100 mg PO Q8 PRN PRN Reason: Cough Last Admin: 12/11/18 02:10 Dose: 100 mg Clotrimazole (Mycelex Bev) 10 mg PO 5XD PRN PRN Reason: Sore Throat Enoxaparin Sodium (Lovenox) 40 mg SC DAILY [facility]; Protocol Last Admin: 12/13/18 08:37 Dose: 40 mg Fluticasone Propionate (Flonase) 1 spr KIRBY BID PRN PRN Reason: Nasal congestion Last Admin: 12/13/18 11:20 Dose: 1 spr Guaifenesin (Mucinex La) 600 mg PO Q8 PRN PRN Reason: Cough Last Admin: 12/10/18 04:12 Dose: 600 mg Home Med (Sirolimus [Sirolimus]) 1 mg PO DAILY@0900 [facility] Last Admin: 12/13/18 08:37 Dose: 1 mg Loratadine (Claritin) 10 mg PO Q12 PRN PRN Reason: Allergy symptoms Last Admin: 12/11/18 11:42 Dose: 10 mg Methylprednisolone (Solu-Medrol) 20 mg IVP Q12H [facility] Last Admin: 12/13/18 14:06 Dose: 20 mg Oxycodone/Acetaminophen (Percocet 5/325 Mg Tab) 1 tab PO Q6 PRN PRN Reason: Pain, moderate (4-7) Stop: 12/15/18 09:30 Last Admin: 12/13/18 09:30 Dose: 1 tab Pantoprazole Sodium (Protonix Ec Tab) 40 mg PO DAILY [facility] Last Admin: 12/13/18 08:37 Dose: 40 mg - Labs Labs: 12/09/18 05:31 12/09/18 05:31 Assessment and Plan (1) Acute on chronic respiratory failure with hypoxia and hypercapnia Status: Acute (2) COPD exacerbation Status: Acute (3) Lymphangioleiomyomatosis Status: Chronic Attending/Attestation - Attestation I have personally seen and examined this patient.: Yes I have fully participated in the care of the patient.: Yes I have reviewed all pertinent clinical information, including history, physical exam and plan: Yes Notes (Text): (1) Acute on chronic respiratory failure with hypoxia and hypercapnia (2) COPD exacerbation (3) Lymphangioleiomyomatosis - on Bipap , alternating with low NC - cont IV Solumedrol 20 mg q 12 and Duoneb RTC and Diamox - cont Sirolimus , checked level: pending result -Pulmonary following pt - will cont to keep pt in the hospital and monitor her
[2018-12-14] MEDS: MethylPREDNISolone 40 mg Vial IVP SCH ×2 (02:03→14:29)
[2018-12-14] MEDS: Albuterol-Ipratrop 3 mg / 0.5 (3 ml) UD INH SCH ×5 (04:06→19:18)
[2018-12-14] MEDS: Oxycodone/Acetaminophen 5/325 mg Tab PO PRN ×2 (05:41→13:45)
[2018-12-14 06:44] LABS: BLOOD UREA NITROGEN 23 mg/dl (7-17); CALCIUM 9.3 mg/dL (8.4-10.2); GFR NON-AFRICAN AMERICAN > 60
[2018-12-14 08:56] LABS: HEMOGLOBIN 12.8 g/dL (12.0-16.0); MEAN CELL VOLUME 86.1 fl (81.0-99.0); MEAN CORPUSCULAR HGB CONC 31.4 g/dL (33.0-37.0); RBC 4.73 Mil/uL (3.80-5.20); RED CELL DISTRIBUTION WIDTH 15.8 % (11.5-14.5); WHITE BLOOD COUNT 11.7 K/uL (4.8-10.8)
--- NOTE | 2018-12-14 09:30 | CP.PCM.PN ---
<Keith Jones - Last Filed: 12/14/18 12:02> Subjective - Date & Time of Evaluation Date of Evaluation: 12/14/18 Time of Evaluation: 08:15 - Subjective Subjective: Pt seen examined at bedside. Denies acute overnight events. Benefitting from BIPAP and NC. Tolerating PO diet and regular BM. Objective - Vital Signs/Intake and Output Vital Signs (last 24 hours): Temp Pulse Resp BP Pulse Ox 97.8 F 85 20 129/82 100 12/14/18 08:18 12/14/18 08:22 12/14/18 08:18 12/14/18 08:18 12/14/18 08:18 - Medications Medications: Current Medications Acetaminophen (Tylenol 325mg Tab) 650 mg PO Q6 PRN PRN Reason: Pain, Mild (1-3) Acetazolamide (Diamox Sequels 500 Mg Sr Cap) 500 mg PO Q12 [facility] Last Admin: 12/13/18 21:47 Dose: 500 mg Albuterol/Ipratropium (Duoneb 3 Mg/0.5 Mg (3 Ml) Ud) 3 ml INH RQ4 [facility] Last Admin: 12/14/18 07:45 Dose: 3 ml Albuterol/Ipratropium (Duoneb 3 Mg/0.5 Mg (3 Ml) Ud) 3 ml INH RQ4 PRN PRN Reason: Shortness of Breath Last Admin: 12/13/18 17:59 Dose: 3 ml Alprazolam (Xanax) 0.25 mg PO Q8 PRN PRN Reason: Anxiety Stop: 12/15/18 23:26 Last Admin: 12/14/18 02:02 Dose: 0.25 mg Atorvastatin Calcium (Lipitor) 10 mg PO HS [facility] Last Admin: 12/13/18 21:47 Dose: 10 mg Benzonatate (Tessalon Perles) 100 mg PO Q8 PRN PRN Reason: Cough Last Admin: 12/11/18 02:10 Dose: 100 mg Clotrimazole (Mycelex Bev) 10 mg PO 5XD PRN PRN Reason: Sore Throat Enoxaparin Sodium (Lovenox) 40 mg SC DAILY [facility]; Protocol Last Admin: 12/13/18 08:37 Dose: 40 mg Fluticasone Propionate (Flonase) 1 spr KIRBY BID PRN PRN Reason: Nasal congestion Last Admin: 12/13/18 11:20 Dose: 1 spr Guaifenesin (Mucinex La) 600 mg PO Q8 PRN PRN Reason: Cough Last Admin: 12/10/18 04:12 Dose: 600 mg Home Med (Sirolimus [Sirolimus]) 1 mg PO DAILY@0900 [facility] Last Admin: 12/13/18 08:37 Dose: 1 mg Loratadine (Claritin) 10 mg PO Q12 PRN PRN Reason: Allergy symptoms Last Admin: 12/11/18 11:42 Dose: 10 mg Methylprednisolone (Solu-Medrol) 20 mg IVP Q12H [facility] Last Admin: 12/14/18 02:03 Dose: 20 mg Oxycodone/Acetaminophen (Percocet 5/325 Mg Tab) 1 tab PO Q6 PRN PRN Reason: Pain, moderate (4-7) Stop: 12/15/18 09:30 Last Admin: 12/14/18 05:41 Dose: 1 tab Pantoprazole Sodium (Protonix Ec Tab) 40 mg PO DAILY [facility] Last Admin: 12/13/18 08:37 Dose: 40 mg - Labs Labs: 12/14/18 05:55 12/14/18 05:55 - Constitutional Appears: No Acute Distress - Eye Exam Eye Exam: EOMI - ENT Exam ENT Exam: Mucous Membranes Moist - Respiratory Exam Respiratory Exam: Decreased Breath Sounds - Cardiovascular Exam Cardiovascular Exam: +S1, +S2 - GI/Abdominal Exam GI & Abdominal Exam: Soft, Normal Bowel Sounds. absent: Tenderness - Extremities Exam Extremities Exam: absent: Calf Tenderness - Neurological Exam Neurological Exam: Alert, Awake, CN II-XII Intact, Oriented x3 - Psychiatric Exam Psychiatric exam: Normal Affect, Normal Mood Assessment and Plan - Assessment and Plan (Free Text) Assessment: 58 year old female with PMHx of COPD, JIMENEZ (lymphangioleiomyomatosis), endom etriosis, depression and chronic fatigue syndrome admitted for worsening shortness of breath. Plan: Advanced COPD/Lymphangioleiomyomatosis Acute on Chronic respiratory failure - S/P duoneb x 3, mag 2gm and solumedrol 60 mg IVP in ED - on BIPAP alternating with [place] - [employer] Dr. Interiano - c/w DuoNEB Q4, - Tapered solumedrol 20 mg IVP Q12 - Sputum culture: yeast species - Clotrimazole 10 mg - c/w Sirolimus: from home; f/u levels: 2.9 - c/w Diamox - F/U AM labs Chronic Pain syndrome - c/w percocet and tylenol - PT/OT Anxiety - c/w Xanax 0.25 PRN DVT prophylaxis - Lovenox 40 mg sc daily SW: Further discharge planning in progress: LTACH/BRANDEN, however, pt refusing. Case and plan d/w Dr. Mikael Jones MD PGY2 <Colleen Youssef - Last Filed: 12/15/18 16:20> Objective - Vital Signs/Intake and Output Vital Signs (last 24 hours): Temp Pulse Resp BP Pulse Ox 97.6 F 97 H 20 149/83 99 12/15/18 08:23 12/15/18 11:12 12/15/18 08:23 12/15/18 08:23 12/15/18 08:23 - Medications Medications: Current Medications Acetaminophen (Tylenol 325mg Tab) 650 mg PO Q6 PRN PRN Reason: Pain, Mild (1-3) Acetazolamide (Diamox Sequels 500 Mg Sr Cap) 500 mg PO Q12 [facility] Last Admin: 12/15/18 08:37 Dose: 500 mg Albuterol/Ipratropium (Duoneb 3 Mg/0.5 Mg (3 Ml) Ud) 3 ml INH RQ4 [facility] Last Admin: 12/15/18 11:04 Dose: 3 ml Albuterol/Ipratropium (Duoneb 3 Mg/0.5 Mg (3 Ml) Ud) 3 ml INH RQ4 PRN PRN Reason: Shortness of Breath Last Admin: 12/14/18 13:07 Dose: 3 ml Alprazolam (Xanax) 0.25 mg PO Q8 PRN PRN Reason: Anxiety Stop: 12/15/18 23:26 Last Admin: 12/15/18 10:47 Dose: 0.25 mg Atorvastatin Calcium (Lipitor) 10 mg PO HS [facility] Last Admin: 12/14/18 21:24 Dose: 10 mg Clotrimazole (Mycelex Bev) 10 mg PO 5XD PRN PRN Reason: Sore Throat Enoxaparin Sodium (Lovenox) 40 mg SC DAILY [facility]; Protocol Last Admin: 12/15/18 08:36 Dose: 40 mg Fluticasone Propionate (Flonase) 1 spr KIRBY BID PRN PRN Reason: Nasal congestion Last Admin: 12/14/18 13:46 Dose: 1 spr Guaifenesin (Mucinex La) 600 mg PO Q8 PRN PRN Reason: Cough Last Admin: 12/10/18 04:12 Dose: 600 mg Guaifenesin/Dextromethorphan (Robitussin Dm) 5 ml PO Q4 PRN PRN Reason: Cough Last Admin: 12/15/18 05:08 Dose: 5 ml Home Med (Sirolimus [Sirolimus]) 1 mg PO DAILY@0900 [facility] Last Admin: 12/15/18 08:37 Dose: 1 mg Loratadine (Claritin) 10 mg PO Q12 PRN PRN Reason: Allergy symptoms Last Admin: 12/11/18 11:42 Dose: 10 mg Methylprednisolone (Medrol) 12 mg PO BID [facility] Last Admin: 12/15/18 16:07 Dose: 12 mg Pantoprazole Sodium (Protonix Ec Tab) 40 mg PO DAILY [facility] Last Admin: 12/15/18 08:37 Dose: 40 mg - Labs Labs: 12/15/18 05:45 12/15/18 05:45 Attending/Attestation - Attestation I have personally seen and examined this patient.: Yes I have fully participated in the care of the patient.: Yes I have reviewed all pertinent clinical information, including history, physical exam and plan: Yes Notes (Text): 12/15/18 16:20 Agree with findings and plan as above.
[2018-12-14] MEDS: acetaZOLAMIDE 500 mg SR Cap PO SCH ×2 (11:05→21:23)
[2018-12-14] MEDS: Enoxaparin 40 mg Syringe SC SCH (11:06)
[2018-12-14] MEDS: Pantoprazole 40 mg EC Tab PO SCH (11:06)
[2018-12-14] MEDS: SIROLIMUS 1 MG PO SCH (11:06)
[2018-12-14] MEDS: Albuterol-Ipratrop 3 mg / 0.5 (3 ml) UD INH PRN (13:07)
[2018-12-14] MEDS: guaiFENesin 600 mg ER Tab PO PRN (18:24)
[2018-12-14] MEDS: guaiFENesin DM 100 mg-10 mg/5 ml UD PO PRN (21:24)
[2018-12-15] MEDS: Oxycodone/Acetaminophen 5/325 mg Tab PO PRN ×2 (00:36→08:36)
[2018-12-15] MEDS: MethylPREDNISolone 40 mg Vial IVP SCH (02:57)
[2018-12-15] MEDS: Albuterol-Ipratrop 3 mg / 0.5 (3 ml) UD INH SCH ×6 (04:51→19:47)
[2018-12-15] MEDS: guaiFENesin DM 100 mg-10 mg/5 ml UD PO PRN ×2 (05:08→20:44)
[2018-12-15 06:38] LABS: HEMOGLOBIN 12.7 g/dL (12.0-16.0); MEAN CELL VOLUME 86.3 fl (81.0-99.0); MEAN CORPUSCULAR HGB CONC 31.3 g/dL (33.0-37.0); RBC 4.71 Mil/uL (3.80-5.20); RED CELL DISTRIBUTION WIDTH 15.4 % (11.5-14.5)
[2018-12-15 06:41] LABS: BLOOD UREA NITROGEN 24 mg/dl (7-17); CALCIUM 9.4 mg/dL (8.4-10.2); GFR NON-AFRICAN AMERICAN > 60
[2018-12-15] MEDS: Enoxaparin 40 mg Syringe SC SCH (08:36)
[2018-12-15] MEDS: Pantoprazole 40 mg EC Tab PO SCH (08:37)
[2018-12-15] MEDS: acetaZOLAMIDE 500 mg SR Cap PO SCH ×2 (08:37→21:51)
[2018-12-15] MEDS: SIROLIMUS 1 MG PO SCH (08:37)
--- NOTE | 2018-12-15 10:33 | CP.PCM.PN ---
<Keith Jones - Last Filed: 12/15/18 13:52> Subjective - Date & Time of Evaluation Date of Evaluation: 12/15/18 Time of Evaluation: 08:00 - Subjective Subjective: Pt seen and examined at bedside. Reports improvement since undergoing treatment here. BIPAP Objective - Vital Signs/Intake and Output Vital Signs (last 24 hours): Temp Pulse Resp BP Pulse Ox 97.6 F 97 H 20 149/83 99 12/15/18 08:23 12/15/18 08:23 12/15/18 08:23 12/15/18 08:23 12/15/18 08:23 - Medications Medications: Current Medications Acetaminophen (Tylenol 325mg Tab) 650 mg PO Q6 PRN PRN Reason: Pain, Mild (1-3) Acetazolamide (Diamox Sequels 500 Mg Sr Cap) 500 mg PO Q12 [facility] Last Admin: 12/15/18 08:37 Dose: 500 mg Albuterol/Ipratropium (Duoneb 3 Mg/0.5 Mg (3 Ml) Ud) 3 ml INH RQ4 [facility] Last Admin: 12/15/18 07:16 Dose: 3 ml Albuterol/Ipratropium (Duoneb 3 Mg/0.5 Mg (3 Ml) Ud) 3 ml INH RQ4 PRN PRN Reason: Shortness of Breath Last Admin: 12/14/18 13:07 Dose: 3 ml Alprazolam (Xanax) 0.25 mg PO Q8 PRN PRN Reason: Anxiety Stop: 12/15/18 23:26 Last Admin: 12/14/18 02:02 Dose: 0.25 mg Atorvastatin Calcium (Lipitor) 10 mg PO HS [facility] Last Admin: 12/14/18 21:24 Dose: 10 mg Clotrimazole (Mycelex Bev) 10 mg PO 5XD PRN PRN Reason: Sore Throat Enoxaparin Sodium (Lovenox) 40 mg SC DAILY [facility]; Protocol Last Admin: 12/15/18 08:36 Dose: 40 mg Fluticasone Propionate (Flonase) 1 spr KIRBY BID PRN PRN Reason: Nasal congestion Last Admin: 12/14/18 13:46 Dose: 1 spr Guaifenesin (Mucinex La) 600 mg PO Q8 PRN PRN Reason: Cough Last Admin: 12/10/18 04:12 Dose: 600 mg Guaifenesin/Dextromethorphan (Robitussin Dm) 5 ml PO Q4 PRN PRN Reason: Cough Last Admin: 12/15/18 05:08 Dose: 5 ml Home Med (Sirolimus [Sirolimus]) 1 mg PO DAILY@0900 [facility] Last Admin: 12/15/18 08:37 Dose: 1 mg Loratadine (Claritin) 10 mg PO Q12 PRN PRN Reason: Allergy symptoms Last Admin: 12/11/18 11:42 Dose: 10 mg Methylprednisolone (Solu-Medrol) 20 mg IVP Q12H [facility] Last Admin: 12/15/18 02:57 Dose: 20 mg Pantoprazole Sodium (Protonix Ec Tab) 40 mg PO DAILY [facility] Last Admin: 12/15/18 08:37 Dose: 40 mg - Labs Labs: 12/15/18 05:45 12/15/18 05:45 - Constitutional Appears: Well, No Acute Distress - Eye Exam Eye Exam: EOMI - ENT Exam ENT Exam: Mucous Membranes Moist - Respiratory Exam Respiratory Exam: Decreased Breath Sounds Additional comments: bipap - Cardiovascular Exam Cardiovascular Exam: +S1, +S2 - GI/Abdominal Exam GI & Abdominal Exam: Soft, Normal Bowel Sounds. absent: Tenderness - Neurological Exam Neurological Exam: Alert, Awake, CN II-XII Intact, Oriented x3 - Psychiatric Exam Psychiatric exam: Normal Affect, Normal Mood Assessment and Plan - Assessment and Plan (Free Text) Assessment: 58 year old female with PMHx of COPD, JIMENEZ (lymphangioleiomyomatosis), endometriosis, depression and chronic fatigue syndrome admitted for worsening shortness of breath. Plan: Advanced COPD/Lymphangioleiomyomatosis Acute on Chronic respiratory failure - S/P duoneb x 3, mag 2gm and solumedrol 60 mg IVP in ED - on BIPAP alternating with [place] - [employer] Dr. Interaino - c/w DuoNEB Q4, - Tapered solumedrol 20 mg IVP Q12 - Sputum culture: yeast species - Clotrimazole 10 mg - c/w Sirolimus: from home; f/u levels: 2.9 - c/w Diamox - F/U AM labs Chronic Pain syndrome - c/w percocet and tylenol - PT/OT Anxiety - c/w Xanax 0.25 PRN DVT prophylaxis - Lovenox 40 mg sc daily SW: Further discharge planning in progress: LTACH/BRANDEN, however, pt refusing. Case and plan d/w Dr. Mikael Jones MD PGY2 <Colleen Youssef - Last Filed: 12/15/18 16:16> Objective - Vital Signs/Intake and Output Vital Signs (last 24 hours): Temp Pulse Resp BP Pulse Ox 97.6 F 97 H 20 149/83 99 12/15/18 08:23 12/15/18 11:12 12/15/18 08:23 12/15/18 08:23 12/15/18 08:23 - Medications Medications: Current Medications Acetaminophen (Tylenol 325mg Tab) 650 mg PO Q6 PRN PRN Reason: Pain, Mild (1-3) Acetazolamide (Diamox Sequels 500 Mg Sr Cap) 500 mg PO Q12 [facility] Last Admin: 12/15/18 08:37 Dose: 500 mg Albuterol/Ipratropium (Duoneb 3 Mg/0.5 Mg (3 Ml) Ud) 3 ml INH RQ4 [facility]IS[facility] Last Admin: 12/15/18 11:04 Dose: 3 ml Albuterol/Ipratropium (Duoneb 3 Mg/0.5 Mg (3 Ml) Ud) 3 ml INH RQ4 PRN PRN Reason: Shortness of Breath Last Admin: 12/14/18 13:07 Dose: 3 ml Alprazolam (Xanax) 0.25 mg PO Q8 PRN PRN Reason: Anxiety Stop: 12/15/18 23:26 Last Admin: 12/15/18 10:47 Dose: 0.25 mg Atorvastatin Calcium (Lipitor) 10 mg PO HS [facility] Last Admin: 12/14/18 21:24 Dose: 10 mg Clotrimazole (Mycelex Bev) 10 mg PO 5XD PRN PRN Reason: Sore Throat Enoxaparin Sodium (Lovenox) 40 mg SC DAILY [facility]; Protocol Last Admin: 12/15/18 08:36 Dose: 40 mg Fluticasone Propionate (Flonase) 1 spr KIRBY BID PRN PRN Reason: Nasal congestion Last Admin: 12/14/18 13:46 Dose: 1 spr Guaifenesin (Mucinex La) 600 mg PO Q8 PRN PRN Reason: Cough Last Admin: 12/10/18 04:12 Dose: 600 mg Guaifenesin/Dextromethorphan (Robitussin Dm) 5 ml PO Q4 PRN PRN Reason: Cough Last Admin: 12/15/18 05:08 Dose: 5 ml Home Med (Sirolimus [Sirolimus]) 1 mg PO DAILY@0900 [facility] Last Admin: 12/15/18 08:37 Dose: 1 mg Loratadine (Claritin) 10 mg PO Q12 PRN PRN Reason: Allergy symptoms Last Admin: 12/11/18 11:42 Dose: 10 mg Methylprednisolone (Medrol) 12 mg PO BID [facility] Last Admin: 12/15/18 16:07 Dose: 12 mg Pantoprazole Sodium (Protonix Ec Tab) 40 mg PO DAILY [facility] Last Admin: 12/15/18 08:37 Dose: 40 mg - Labs Labs: 12/15/18 05:45 12/15/18 05:45 Attending/Attestation - Attestation I have personally seen and examined this patient.: Yes I have fully participated in the care of the patient.: Yes I have reviewed all pertinent clinical information, including history, physical exam and plan: Yes Notes (Text): 12/15/18 16:16 Agree with findings and plan as above.
--- NOTE | 2018-12-15 14:50 | CP.PCM.PN ---
Subjective - Date & Time of Evaluation Date of Evaluation: 12/15/18 Time of Evaluation: 14:48 - Subjective Subjective: Seated on edge of bed. Clinically little changed fro before. Still on solumedrol 20MG Q12H. Has limited ability to perform PT, but working with the therapist. Will reduce steroid dose, change to PO Medrol 12MG BID. Continue PT as tolerated. She remains hopeful that she will eventually return to the transplant program at [facility]. Objective - Vital Signs/Intake and Output Vital Signs (last 24 hours): Temp Pulse Resp BP Pulse Ox 97.6 F 97 H 20 149/83 99 12/15/18 08:23 12/15/18 11:12 12/15/18 08:23 12/15/18 08:23 12/15/18 08:23 - Medications Medications: Current Medications Acetaminophen (Tylenol 325mg Tab) 650 mg PO Q6 PRN PRN Reason: Pain, Mild (1-3) Acetazolamide (Diamox Sequels 500 Mg Sr Cap) 500 mg PO Q12 [facility] Last Admin: 12/15/18 08:37 Dose: 500 mg Albuterol/Ipratropium (Duoneb 3 Mg/0.5 Mg (3 Ml) Ud) 3 ml INH RQ4 [facility] Last Admin: 12/15/18 11:04 Dose: 3 ml Albuterol/Ipratropium (Duoneb 3 Mg/0.5 Mg (3 Ml) Ud) 3 ml INH RQ4 PRN PRN Reason: Shortness of Breath Last Admin: 12/14/18 13:07 Dose: 3 ml Alprazolam (Xanax) 0.25 mg PO Q8 PRN PRN Reason: Anxiety Stop: 12/15/18 23:26 Last Admin: 12/15/18 10:47 Dose: 0.25 mg Atorvastatin Calcium (Lipitor) 10 mg PO HS [facility] Last Admin: 12/14/18 21:24 Dose: 10 mg Clotrimazole (Mycelex Bev) 10 mg PO 5XD PRN PRN Reason: Sore Throat Enoxaparin Sodium (Lovenox) 40 mg SC DAILY [facility]; Protocol Last Admin: 12/15/18 08:36 Dose: 40 mg Fluticasone Propionate (Flonase) 1 spr IKRBY BID PRN PRN Reason: Nasal congestion Last Admin: 12/14/18 13:46 Dose: 1 spr Guaifenesin (Mucinex La) 600 mg PO Q8 PRN PRN Reason: Cough Last Admin: 12/10/18 04:12 Dose: 600 mg Guaifenesin/Dextromethorphan (Robitussin Dm) 5 ml PO Q4 PRN PRN Reason: Cough Last Admin: 12/15/18 05:08 Dose: 5 ml Home Med (Sirolimus [Sirolimus]) 1 mg PO DAILY@0900 [facility] Last Admin: 12/15/18 08:37 Dose: 1 mg Loratadine (Claritin) 10 mg PO Q12 PRN PRN Reason: Allergy symptoms Last Admin: 12/11/18 11:42 Dose: 10 mg Methylprednisolone (Medrol) 12 mg PO BID [facility] Pantoprazole Sodium (Protonix Ec Tab) 40 mg PO DAILY [facility] Last Admin: 12/15/18 08:37 Dose: 40 mg - Labs Labs: 12/15/18 05:45 12/15/18 05:45 Assessment and Plan (1) COPD (chronic obstructive pulmonary disease) Status: Chronic (2) Depressed mood Status: Acute (3) SOB (shortness of breath) Status: Chronic (4) Lymphangioleiomyomatosis Status: Chronic
[2018-12-15] MEDS: Albuterol-Ipratrop 3 mg / 0.5 (3 ml) UD INH PRN (22:24)
[2018-12-16] MEDS: Albuterol-Ipratrop 3 mg / 0.5 (3 ml) UD INH SCH ×6 (00:07→19:01)
[2018-12-16] MEDS: Oxycodone/Acetaminophen 5/325 mg Tab PO PRN ×2 (03:10→08:44)
--- NOTE | 2018-12-16 04:55 | CON ---
DATE: 12/15/2018 ENDOCRINOLOGY CONSULTATION LOCATION: Room 657. HISTORY OF PRESENT ILLNESS: This is a 58-year-old female with COPD and significant history of recurrent spontaneous pneumothorax, on home oxygen and BIPAP therapy, and is now being referred for endocrine evaluation of possible steroid dependence and adrenal insufficiency because of long-term use of steroids as noted. She presented here with progressively worsening shortness of breath and generalized body weakness as noted. PAST MEDICAL HISTORY: History of COPD and multiple admissions for exacerbations of the same. She also has recurrent spontaneous pneumothorax with a chest tube insertion done twice and a lung biopsy undertaken thereof. History of lymphangioleiomyomatosis or JIMENEZ with endometrial cyst and significant history of uterine fibroids as noted. Also history of chronic fatigue syndrome and possible fibromyalgia. History of generalized anxiety and depression, on psychotropic medications. FAMILY HISTORY: Positive for diabetes and hypertension. Her mother from breast cancer as noted. SOCIAL HISTORY: The patient is a former smoker, quit about 2 years ago and smoked a pack a day for over 25 years. She has a supportive family otherwise. REVIEW OF SYSTEMS: Admits to generalized body weakness with easy fatigability and tiredness and suboptimal energy level. Also admits to progressive bouts of dizziness and lightheadedness with bifrontal headaches. No chest pains, but admits to progressive shortness of breath initially on exertion and then at rest with paroxysmal nocturnal dyspnea. Her oral intake has been variable with nausea, dyspepsia and vague upper abdominal pains. Also admits to habitual constipation. No recent alterations of urinary patterns otherwise. PHYSICAL EXAMINATION: GENERAL: This is an overweight female in no apparent distress. VITAL SIGNS: Blood pressure of 140/80, pulse of 100 beats per minute and regular, temperature 98, respirations 20. Height is 5 feet 2 inches. Weight is 197 pounds. HEENT: Head: Normocephalic. Eyes: Anicteric with pink conjunctivae. Funduscopy not possible at this time. Ears, nose and throat otherwise normal. NECK: Supple. Thyroid gland is normal in size. No carotid bruits or cervical adenopathy. CARDIOPULMONARY: Some adynamic precordium. S1, S2, is rapid and regular. LUNGS: Clear to auscultation. ABDOMEN: Flat, soft with positive bowel sounds. EXTREMITIES: No peripheral edema. Pulses are +2 bilaterally. LABORATORY DATA: Her chemistry showed a BUN of 24, sodium 142, potassium 4.1, chloride 99, CO2 of 39, glucose 122 and creatinine 0.7. ASSESSMENT: This is a 58-year-old female with chronic obstructive lung disease, presenting here with acute exacerbations of the same and significant history of spontaneous recurrent pneumothorax and previous chest tube insertion as noted and is being referred for endocrine evaluation of possible hypoadrenalism from long-term steroid therapy and dependence as noted. PLAN OF MANAGEMENT: We will obtain baseline serum cortisol and ACTH levels as ordered. We will add baseline thyroid studies, a lipid panel and also hemoglobin A1c to exclude any underlying impaired glucose tolerance or prediabetes thereof. We will follow and advise accordingly. Jonna Serna MD [facility] # [id number]
[2018-12-16] MEDS: guaiFENesin DM 100 mg-10 mg/5 ml UD PO PRN ×2 (05:41→17:35)
[2018-12-16 07:40] LABS: HEMOGLOBIN 12.6 g/dL (12.0-16.0); MEAN CELL VOLUME 86.9 fl (81.0-99.0); MEAN CORPUSCULAR HEMOGLOBIN 26.8 pg (27.0-31.0); MEAN CORPUSCULAR HGB CONC 30.8 g/dL (33.0-37.0); RBC 4.71 Mil/uL (3.80-5.20); RED CELL DISTRIBUTION WIDTH 15.6 % (11.5-14.5); WHITE BLOOD COUNT 12.7 K/uL (4.8-10.8)
[2018-12-16 08:03] LABS: LDL CHOLESTEROL 84 mg/dL (0-129)
[2018-12-16 08:04] LABS: ALB/GLOB RATIO 1.3 (1.0-2.1); ALBUMIN 3.8 g/dL (3.5-5.0); ALT/SGPT 28 U/L (9-52); AST/SGOT 20 U/L (14-36); BLOOD UREA NITROGEN 25 mg/dl (7-17); CALCIUM 9.4 mg/dL (8.4-10.2); GFR NON-AFRICAN AMERICAN > 60; HDL CHOLESTEROL 105 MG/DL (30-70)
[2018-12-16] MEDS: acetaZOLAMIDE 500 mg SR Cap PO SCH ×2 (08:37→21:18)
[2018-12-16] MEDS: Pantoprazole 40 mg EC Tab PO SCH (08:37)
[2018-12-16] MEDS: SIROLIMUS 1 MG PO SCH (08:37)
[2018-12-16] MEDS: Enoxaparin 40 mg Syringe SC SCH (08:38)
--- NOTE | 2018-12-16 09:37 | CP.PCM.PN ---
<Keith Jones - Last Filed: 12/16/18 12:37> Subjective - Date & Time of Evaluation Date of Evaluation: 12/16/18 Time of Evaluation: 08:45 - Subjective Subjective: Pt seen and examined at bedside this am with Dr. Interiano. Denies acute overnight events. Reports improvement with breathing. On BIPAP. Objective - Vital Signs/Intake and Output Vital Signs (last 24 hours): Temp Pulse Resp BP Pulse Ox 97.6 F 92 H 20 141/88 100 12/16/18 08:09 12/16/18 08:09 12/16/18 08:09 12/16/18 08:09 12/16/18 08:09 - Medications Medications: Current Medications Acetaminophen (Tylenol 325mg Tab) 650 mg PO Q6 PRN PRN Reason: Pain, Mild (1-3) Acetazolamide (Diamox Sequels 500 Mg Sr Cap) 500 mg PO Q12 [facility] Last Admin: 12/16/18 08:37 Dose: 500 mg Albuterol/Ipratropium (Duoneb 3 Mg/0.5 Mg (3 Ml) Ud) 3 ml INH RQ4 [facility] Last Admin: 12/16/18 07:33 Dose: 3 ml Albuterol/Ipratropium (Duoneb 3 Mg/0.5 Mg (3 Ml) Ud) 3 ml INH RQ4 PRN PRN Reason: Shortness of Breath Last Admin: 12/15/18 22:24 Dose: 3 ml Atorvastatin Calcium (Lipitor) 10 mg PO HS [facility] Last Admin: 12/15/18 21:51 Dose: 10 mg Clotrimazole (Mycelex Bev) 10 mg PO 5XD PRN PRN Reason: Sore Throat Enoxaparin Sodium (Lovenox) 40 mg SC DAILY [facility]; Protocol Last Admin: 12/16/18 08:38 Dose: 40 mg Fluticasone Propionate (Flonase) 1 spr KIRBY BID PRN PRN Reason: Nasal congestion Last Admin: 12/14/18 13:46 Dose: 1 spr Guaifenesin (Mucinex La) 600 mg PO Q8 PRN PRN Reason: Cough Last Admin: 12/10/18 04:12 Dose: 600 mg Guaifenesin/Dextromethorphan (Robitussin Dm) 5 ml PO Q4 PRN PRN Reason: Cough Last Admin: 12/16/18 05:41 Dose: 5 ml Home Med (Sirolimus [Sirolimus]) 1 mg PO DAILY@0900 [facility] Last Admin: 12/16/18 08:37 Dose: 1 mg Loratadine (Claritin) 10 mg PO Q12 PRN PRN Reason: Allergy symptoms Last Admin: 12/11/18 11:42 Dose: 10 mg Methylprednisolone (Medrol) 12 mg PO BID [facility] Last Admin: 12/16/18 08:37 Dose: 12 mg Oxycodone/Acetaminophen (Percocet 5/325 Mg Tab) 1 tab PO Q6 PRN PRN Reason: Other Stop: 12/19/18 03:02 Last Admin: 12/16/18 08:44 Dose: 1 tab Pantoprazole Sodium (Protonix Ec Tab) 40 mg PO DAILY [facility] Last Admin: 12/16/18 08:37 Dose: 40 mg - Labs Labs: 12/16/18 05:30 12/16/18 05:30 - Constitutional Appears: No Acute Distress - Eye Exam Eye Exam: EOMI - ENT Exam ENT Exam: Mucous Membranes Moist - Respiratory Exam Respiratory Exam: Decreased Breath Sounds - Cardiovascular Exam Cardiovascular Exam: +S1, +S2 - Neurological Exam Neurological Exam: Alert, Awake, CN II-XII Intact, Oriented x3 - Psychiatric Exam Psychiatric exam: Normal Affect, Normal Mood Assessment and Plan - Assessment and Plan (Free Text) Assessment: 58 year old female with PMHx of COPD, JIMENEZ (lymphangioleiomyomatosis), endometriosis, depression and chronic fatigue syndrome admitted for worsening shortness of breath. Plan: Advanced COPD/Lymphangioleiomyomatosis Acute on Chronic respiratory failure - S/P duoneb x 3, mag 2gm and solumedrol 60 mg IVP in ED - on BIPAP alternating with [place] - Manager Applied Dr. Interiano - c/w DuoNEB Q4, - Tapered solumedrol 12 mg IVP Q12 - Sputum culture: yeast species - Clotrimazole 10 mg - c/w Sirolimus: from home; f/u levels: 2.9 - c/w Diamox - F/U AM labs Chronic Pain syndrome - c/w percocet and tylenol - PT/OT Anxiety - c/w Xanax 0.25 PRN DVT prophylaxis - Lovenox 40 mg sc daily SW: Further discharge planning in progress: LTACH/BRANDEN, however, pt refusing. Case and plan d/w Dr. Mikael Jones MD PGY2 <Colleen Youssef - Last Filed: 12/16/18 18:03> Objective - Vital Signs/Intake and Output Vital Signs (last 24 hours): Temp Pulse Resp BP Pulse Ox 97.9 F 117 H 20 133/79 93 L 12/16/18 16:58 12/16/18 16:58 12/16/18 16:58 12/16/18 16:58 12/16/18 16:58 - Medications Medications: Current Medications Acetaminophen (Tylenol 325mg Tab) 650 mg PO Q6 PRN PRN Reason: Pain, Mild (1-3) Acetazolamide (Diamox Sequels 500 Mg Sr Cap) 500 mg PO Q12 [facility] Last Admin: 12/16/18 08:37 Dose: 500 mg Albuterol/Ipratropium (Duoneb 3 Mg/0.5 Mg (3 Ml) Ud) 3 ml INH RQ4 [facility] Last Admin: 12/16/18 15:00 Dose: 3 ml Albuterol/Ipratropium (Duoneb 3 Mg/0.5 Mg (3 Ml) Ud) 3 ml INH RQ4 PRN PRN Reason: Shortness of Breath Last Admin: 12/15/18 22:24 Dose: 3 ml Atorvastatin Calcium (Lipitor) 10 mg PO HS [facility] Last Admin: 12/15/18 21:51 Dose: 10 mg Clotrimazole (Mycelex Bev) 10 mg PO 5XD PRN PRN Reason: Sore Throat Enoxaparin Sodium (Lovenox) 40 mg SC DAILY [facility]; Protocol Last Admin: 12/16/18 08:38 Dose: 40 mg Fluticasone Propionate (Flonase) 1 spr KIRBY BID PRN PRN Reason: Nasal congestion Last Admin: 12/14/18 13:46 Dose: 1 spr Guaifenesin (Mucinex La) 600 mg PO Q8 PRN PRN Reason: Cough Last Admin: 12/10/18 04:12 Dose: 600 mg Guaifenesin/Dextromethorphan (Robitussin Dm) 5 ml PO Q4 PRN PRN Reason: Cough Last Admin: 12/16/18 17:35 Dose: 5 ml Home Med (Sirolimus [Sirolimus]) 1 mg PO DAILY@0900 [facility] Last Admin: 12/16/18 08:37 Dose: 1 mg Loratadine (Claritin) 10 mg PO Q12 PRN PRN Reason: Allergy symptoms Last Admin: 12/11/18 11:42 Dose: 10 mg Methylprednisolone (Medrol) 12 mg PO BID [facility] Last Admin: 12/16/18 16:41 Dose: 12 mg Oxycodone/Acetaminophen (Percocet 5/325 Mg Tab) 1 tab PO Q6 PRN PRN Reason: Other Stop: 12/19/18 03:02 Last Admin: 12/16/18 08:44 Dose: 1 tab Pantoprazole Sodium (Protonix Ec Tab) 40 mg PO DAILY [facility] Last Admin: 12/16/18 08:37 Dose: 40 mg - Labs Labs: 12/16/18 05:30 12/16/18 05:30 Attending/Attestation - Attestation I have personally seen and examined this patient.: Yes I have fully participated in the care of the patient.: Yes I have reviewed all pertinent clinical information, including history, physical exam and plan: Yes Notes (Text): 12/16/18 18:03 agree with findings and plan as above.
--- NOTE | 2018-12-16 11:01 | CP.PCM.PN ---
Subjective - Date & Time of Evaluation Date of Evaluation: 12/16/18 Time of Evaluation: 11:00 - Subjective Subjective: Appears more comfortable today. Breathing more comfortably. Able to remove BiPAP mask and converse comfortably. Short inspiratory phase noted. No audible wheezing. No cyanosis, ++ dependant edema of both legs to mid-calf. Continue present regimen. Will request Endocrine eval for adrenal status. Objective - Vital Signs/Intake and Output Vital Signs (last 24 hours): Temp Pulse Resp BP Pulse Ox 97.6 F 92 H 20 141/88 100 12/16/18 08:09 12/16/18 08:09 12/16/18 08:09 12/16/18 08:09 12/16/18 08:09 - Medications Medications: Current Medications Acetaminophen (Tylenol 325mg Tab) 650 mg PO Q6 PRN PRN Reason: Pain, Mild (1-3) Acetazolamide (Diamox Sequels 500 Mg Sr Cap) 500 mg PO Q12 [facility] Last Admin: 12/16/18 08:37 Dose: 500 mg Albuterol/Ipratropium (Duoneb 3 Mg/0.5 Mg (3 Ml) Ud) 3 ml INH RQ4 [facility] Last Admin: 12/16/18 07:33 Dose: 3 ml Albuterol/Ipratropium (Duoneb 3 Mg/0.5 Mg (3 Ml) Ud) 3 ml INH RQ4 PRN PRN Reason: Shortness of Breath Last Admin: 12/15/18 22:24 Dose: 3 ml Atorvastatin Calcium (Lipitor) 10 mg PO HS [facility] Last Admin: 12/15/18 21:51 Dose: 10 mg Clotrimazole (Mycelex Bev) 10 mg PO 5XD PRN PRN Reason: Sore Throat Enoxaparin Sodium (Lovenox) 40 mg SC DAILY [facility]; Protocol Last Admin: 12/16/18 08:38 Dose: 40 mg Fluticasone Propionate (Flonase) 1 spr KIRBY BID PRN PRN Reason: Nasal congestion Last Admin: 12/14/18 13:46 Dose: 1 spr Guaifenesin (Mucinex La) 600 mg PO Q8 PRN PRN Reason: Cough Last Admin: 12/10/18 04:12 Dose: 600 mg Guaifenesin/Dextromethorphan (Robitussin Dm) 5 ml PO Q4 PRN PRN Reason: Cough Last Admin: 12/16/18 05:41 Dose: 5 ml Home Med (Sirolimus [Sirolimus]) 1 mg PO DAILY@0900 [facility] Last Admin: 12/16/18 08:37 Dose: 1 mg Loratadine (Claritin) 10 mg PO Q12 PRN PRN Reason: Allergy symptoms Last Admin: 12/11/18 11:42 Dose: 10 mg Methylprednisolone (Medrol) 12 mg PO BID [facility] Last Admin: 12/16/18 08:37 Dose: 12 mg Oxycodone/Acetaminophen (Percocet 5/325 Mg Tab) 1 tab PO Q6 PRN PRN Reason: Other Stop: 12/19/18 03:02 Last Admin: 12/16/18 08:44 Dose: 1 tab Pantoprazole Sodium (Protonix Ec Tab) 40 mg PO DAILY [facility] Last Admin: 12/16/18 08:37 Dose: 40 mg - Labs Labs: 12/16/18 05:30 12/16/18 05:30 Assessment and Plan (1) COPD (chronic obstructive pulmonary disease) Status: Chronic (2) Depressed mood Status: Acute (3) SOB (shortness of breath) Status: Chronic (4) Lymphangioleiomyomatosis Status: Chronic
--- NOTE | 2018-12-16 13:17 | PN ---
DATE: 12/16/2018 ENDO FOLLOWUP NOTE ROOM: 657 SUBJECTIVE: This is a 58-year-old female presenting here with acute exacerbation of COPD, currently on oral steroid therapy and is now being followed closely for metabolic management for the possibility of secondary hypoadrenalism especially with underlying constitutional symptoms as noted thereof. Her latest chemistry showed a BUN of 25, sodium 144, potassium 3.4, chloride 98, CO2 of 39, glucose 73 and creatinine 0.7. Her serum cortisol and TSH levels are pending at this time as they were just drawn an hour or so ago. She remains clinically and biochemically euadrenal at this time as noted. ASSESSMENT: This is a 58-year-old female with acute exacerbation of chronic obstructive pulmonary disease, on oral steroid therapy and apparently has been on maintenance steroid therapy on the outpatient and the possibility of secondary hypoadrenalism or adrenal insufficiency is being brought into consideration at this time as a diagnostic possibility for the constitutional symptoms as mentioned above. PLAN OF MANAGEMENT: We will await the reports of the serum cortisol and ACTH levels to confirm and/or indicate the presence of the aforementioned possibility of secondary hypoadrenalism. We will obtain serial chemistries and supplement accordingly as needed. We will concur with the present medical management as given accordingly. Jonna Serna MD
[2018-12-16] MEDS: Albuterol-Ipratrop 3 mg / 0.5 (3 ml) UD INH PRN (21:58)
[2018-12-17] MEDS: Albuterol-Ipratrop 3 mg / 0.5 (3 ml) UD INH SCH ×7 (00:40→23:59)
[2018-12-17] MEDS: Enoxaparin 40 mg Syringe SC SCH (09:05)
[2018-12-17] MEDS: SIROLIMUS 1 MG PO SCH (09:05)
[2018-12-17] MEDS: guaiFENesin DM 100 mg-10 mg/5 ml UD PO PRN (09:06)
[2018-12-17] MEDS: acetaZOLAMIDE 500 mg SR Cap PO SCH ×2 (09:06→21:51)
[2018-12-17] MEDS: Oxycodone/Acetaminophen 5/325 mg Tab PO PRN ×2 (09:17→15:35)
[2018-12-17] MEDS: Pantoprazole 40 mg EC Tab PO SCH (09:18)
--- NOTE | 2018-12-17 10:10 | CP.PCM.PN ---
<Ashok Johnson - Last Filed: 12/17/18 10:19> Subjective - Date & Time of Evaluation Date of Evaluation: 12/17/18 Time of Evaluation: 10:10 - Subjective Subjective: pt seen and evaluated at bedside this morning. No acute events overnight. Sitting up in bedside, comfortably, on NC, NAD. No new complaints/concerns. Objective - Vital Signs/Intake and Output Vital Signs (last 24 hours): Temp Pulse Resp BP Pulse Ox 97.6 F 108 H 20 132/88 95 12/17/18 08:32 12/17/18 08:32 12/17/18 08:32 12/17/18 08:32 12/17/18 08:32 - Medications Medications: Current Medications Acetaminophen (Tylenol 325mg Tab) 650 mg PO Q6 PRN PRN Reason: Pain, Mild (1-3) Acetazolamide (Diamox Sequels 500 Mg Sr Cap) 500 mg PO Q12 [facility]SE Last Admin: 12/17/18 09:06 Dose: 500 mg Albuterol/Ipratropium (Duoneb 3 Mg/0.5 Mg (3 Ml) Ud) 3 ml INH RQ4 [facility]ISSE Last Admin: 12/17/18 07:38 Dose: 3 ml Albuterol/Ipratropium (Duoneb 3 Mg/0.5 Mg (3 Ml) Ud) 3 ml INH RQ4 PRN PRN Reason: Shortness of Breath Last Admin: 12/16/18 21:58 Dose: 3 ml Atorvastatin Calcium (Lipitor) 10 mg PO HS [facility]ISSE Last Admin: 12/16/18 21:18 Dose: 10 mg Clotrimazole (Mycelex Bev) 10 mg PO 5XD PRN PRN Reason: Sore Throat Enoxaparin Sodium (Lovenox) 40 mg SC DAILY [facility]; Protocol Last Admin: 12/17/18 09:05 Dose: 40 mg Fluticasone Propionate (Flonase) 1 spr KIRBY BID PRN PRN Reason: Nasal congestion Last Admin: 12/16/18 18:05 Dose: 1 spr Guaifenesin (Mucinex La) 600 mg PO Q8 PRN PRN Reason: Cough Last Admin: 12/10/18 04:12 Dose: 600 mg Guaifenesin/Dextromethorphan (Robitussin Dm) 5 ml PO Q4 PRN PRN Reason: Cough Last Admin: 12/17/18 09:06 Dose: 5 ml Home Med (Sirolimus [Sirolimus]) 1 mg PO DAILY@0900 [facility] Last Admin: 12/17/18 09:05 Dose: 1 mg Loratadine (Claritin) 10 mg PO Q12 PRN PRN Reason: Allergy symptoms Last Admin: 12/17/18 09:05 Dose: 10 mg Methylprednisolone (Medrol) 12 mg PO BID [facility] Last Admin: 12/17/18 09:05 Dose: 12 mg Oxycodone/Acetaminophen (Percocet 5/325 Mg Tab) 1 tab PO Q6 PRN PRN Reason: Other Stop: 12/19/18 03:02 Last Admin: 12/17/18 09:17 Dose: 1 tab Pantoprazole Sodium (Protonix Ec Tab) 40 mg PO DAILY [facility] Last Admin: 12/17/18 09:18 Dose: 40 mg - Labs Labs: 12/16/18 05:30 12/16/18 05:30 - Constitutional Appears: Non-toxic, No Acute Distress - Head Exam Head Exam: ATRAUMATIC, NORMOCEPHALIC - Eye Exam Eye Exam: EOMI. absent: Scleral icterus Pupil Exam: PERRL - ENT Exam ENT Exam: Mucous Membranes Moist - Neck Exam Neck Exam: Full ROM - Respiratory Exam Respiratory Exam: Decreased Breath Sounds, NORMAL BREATHING PATTERN - Cardiovascular Exam Cardiovascular Exam: REGULAR RHYTHM, RRR, +S1, +S2. absent: JVD, Rubs, Murmur - GI/Abdominal Exam GI & Abdominal Exam: Soft, Normal Bowel Sounds. absent: Tenderness - Neurological Exam Neurological Exam: Alert, Awake, CN II-XII Intact, Oriented x3 - Psychiatric Exam Psychiatric exam: Normal Affect, Normal Mood - Skin Skin Exam: Dry, Intact Assessment and Plan - Assessment and Plan (Free Text) Assessment: 58 year old female with PMHx of COPD, JIMENEZ (lymphangioleiomyomatosis), endometriosis, depression and chronic fatigue syndrome admitted for worsening shortness of breath. Plan: Advanced COPD/Lymphangioleiomyomatosis Acute on Chronic respiratory failure - on BIPAP alternating with CT - [employer] Dr. Interiano - c/w DuoNEB Q4, - Tapered solumedrol 12 mg IVP Q12 - Sputum culture: yeast species - Clotrimazole 10 mg - c/w Sirolimus: from home; f/u levels: 2.9 - c/w Diamox - F/U AM labs Chronic Pain syndrome - c/w percocet and tylenol - PT/OT Anxiety - c/w Xanax 0.25 PRN DVT prophylaxis - Lovenox 40 mg sc daily SW: Further discharge planning in progress: LTACH/BRANDEN, however, pt refusing. <Colleen Youssef - Last Filed: 12/17/18 11:41> Objective - Vital Signs/Intake and Output Vital Signs (last 24 hours): Temp Pulse Resp BP Pulse Ox 97.6 F 108 H 20 132/88 95 12/17/18 08:32 12/17/18 08:32 12/17/18 08:32 12/17/18 08:32 12/17/18 08:32 - Medications Medications: Current Medications Acetaminophen (Tylenol 325mg Tab) 650 mg PO Q6 PRN PRN Reason: Pain, Mild (1-3) Acetazolamide (Diamox Sequels 500 Mg Sr Cap) 500 mg PO Q12 [facility]ISSE Last Admin: 12/17/18 09:06 Dose: 500 mg Albuterol/Ipratropium (Duoneb 3 Mg/0.5 Mg (3 Ml) Ud) 3 ml INH RQ4 [facility] Last Admin: 12/17/18 11:00 Dose: 3 ml Albuterol/Ipratropium (Duoneb 3 Mg/0.5 Mg (3 Ml) Ud) 3 ml INH RQ4 PRN PRN Reason: Shortness of Breath Last Admin: 12/16/18 21:58 Dose: 3 ml Atorvastatin Calcium (Lipitor) 10 mg PO HS [facility] Last Admin: 12/16/18 21:18 Dose: 10 mg Clotrimazole (Mycelex Bev) 10 mg PO 5XD PRN PRN Reason: Sore Throat Enoxaparin Sodium (Lovenox) 40 mg SC DAILY [facility]; Protocol Last Admin: 12/17/18 09:05 Dose: 40 mg Fluticasone Propionate (Flonase) 1 spr KIRBY BID PRN PRN Reason: Nasal congestion Last Admin: 12/16/18 18:05 Dose: 1 spr Guaifenesin (Mucinex La) 600 mg PO Q8 PRN PRN Reason: Cough Last Admin: 12/10/18 04:12 Dose: 600 mg Guaifenesin/Dextromethorphan (Robitussin Dm) 5 ml PO Q4 PRN PRN Reason: Cough Last Admin: 12/17/18 09:06 Dose: 5 ml Home Med (Sirolimus [Sirolimus]) 1 mg PO DAILY@0900 [facility] Last Admin: 12/17/18 09:05 Dose: 1 mg Hydrocortisone (Cortef) 20 mg PO QAM [facility] Hydrocortisone (Cortef) 10 mg PO QPM [facility] Loratadine (Claritin) 10 mg PO Q12 PRN PRN Reason: Allergy symptoms Last Admin: 12/17/18 09:05 Dose: 10 mg Oxycodone/Acetaminophen (Percocet 5/325 Mg Tab) 1 tab PO Q6 PRN PRN Reason: Other Stop: 12/19/18 03:02 Last Admin: 12/17/18 09:17 Dose: 1 tab Pantoprazole Sodium (Protonix Ec Tab) 40 mg PO DAILY [facility] Last Admin: 12/17/18 09:18 Dose: 40 mg - Labs Labs: 12/17/18 10:00 12/17/18 10:00 Attending/Attestation - Attestation I have personally seen and examined this patient.: Yes I have fully participated in the care of the patient.: Yes I have reviewed all pertinent clinical information, including history, physical exam and plan: Yes Notes (Text): 12/17/18 11:40 patient breathing comfortably, severe disease. discussed discharge planning. agree with findings and plan as above.
[2018-12-17 10:32] LABS: HEMOGLOBIN 12.7 g/dL (12.0-16.0); MEAN CELL VOLUME 86.1 fl (81.0-99.0); MEAN CORPUSCULAR HEMOGLOBIN 26.9 pg (27.0-31.0); MEAN CORPUSCULAR HGB CONC 31.2 g/dL (33.0-37.0); RBC 4.71 Mil/uL (3.80-5.20); RED CELL DISTRIBUTION WIDTH 15.4 % (11.5-14.5); WHITE BLOOD COUNT 14.7 K/uL (4.8-10.8)
[2018-12-17 10:42] LABS: BLOOD UREA NITROGEN 20 mg/dl (7-17); CALCIUM 9.5 mg/dL (8.4-10.2); GFR NON-AFRICAN AMERICAN > 60
--- NOTE | 2018-12-17 10:56 | PN ---
DATE: 12/17/2018 ENDOCRINOLOGY FOLLOWUP NOTE LOCATION: In room 657 SUBJECTIVE: This is a 58-year-old female with recent acute exacerbation of COPD, currently on oral steroid therapy and is now being followed closely for metabolic management. She remains clinically euadrenal but the actual fasting cortisol level was reported as extremely low at 1.1 mcg/dL as noted. LABORATORY DATA: Her chemistry showed a BUN of 25, sodium 144, potassium 3.4, chloride 98, CO2 of 38, glucose 73 and creatinine 0.7. 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 She has overt constitutional symptoms of generalized body weakness with dizziness and lightheadedness consistent with the upper mentioned hypoadrenal manifestations as noted. PLAN OF MANAGEMENT: We will initiate a higher dosing replacement of the steroid therapy since she remains hemodynamically stable at this time. We will increase the cortisol dosing to hydrocortisone given as 20 mg p.o. every 08:00 a.m. daily and 10 mg every 06:00 p.m. daily as ordered. We will obtain serial chemistries and supplement accordingly as needed. We will also obtain serial cortisol levels accordingly. We will follow. Jonna Serna MD
[2018-12-17] MEDS: Albuterol-Ipratrop 3 mg / 0.5 (3 ml) UD INH PRN (14:06)
[2018-12-18] MEDS: Albuterol-Ipratrop 3 mg / 0.5 (3 ml) UD INH PRN (01:31)
[2018-12-18] MEDS: Albuterol-Ipratrop 3 mg / 0.5 (3 ml) UD INH SCH ×6 (04:09→23:45)
[2018-12-18] MEDS: Oxycodone/Acetaminophen 5/325 mg Tab PO PRN ×2 (06:27→17:55)
--- NOTE | 2018-12-18 06:53 | CP.PCM.PN ---
<Keith Jones - Last Filed: 12/18/18 14:02> Subjective - Date & Time of Evaluation Date of Evaluation: 12/18/18 Time of Evaluation: 06:53 - Subjective Subjective: Pt seen and examined at bedside. No complaints at this time. No acute overnight events. On BIPAP Objective - Vital Signs/Intake and Output Vital Signs (last 24 hours): Temp Pulse Resp BP Pulse Ox 98.1 F 84 19 117/72 95 12/18/18 04:20 12/18/18 04:20 12/18/18 04:20 12/18/18 04:20 12/18/18 04:20 - Medications Medications: Current Medications Acetaminophen (Tylenol 325mg Tab) 650 mg PO Q6 PRN PRN Reason: Pain, Mild (1-3) Acetazolamide (Diamox Sequels 500 Mg Sr Cap) 500 mg PO Q12 [facility]ISSE Last Admin: 12/17/18 21:51 Dose: 500 mg Albuterol/Ipratropium (Duoneb 3 Mg/0.5 Mg (3 Ml) Ud) 3 ml INH RQ4 [facility]ISSE Last Admin: 12/18/18 04:09 Dose: 3 ml Albuterol/Ipratropium (Duoneb 3 Mg/0.5 Mg (3 Ml) Ud) 3 ml INH RQ4 PRN PRN Reason: Shortness of Breath Last Admin: 12/18/18 01:31 Dose: 3 ml Atorvastatin Calcium (Lipitor) 10 mg PO HS [facility]ISSE Last Admin: 12/17/18 21:51 Dose: 10 mg Clotrimazole (Mycelex Bev) 10 mg PO 5XD PRN PRN Reason: Sore Throat Enoxaparin Sodium (Lovenox) 40 mg SC DAILY [facility]; Protocol Last Admin: 12/17/18 09:05 Dose: 40 mg Fluticasone Propionate (Flonase) 1 spr KIRBY BID PRN PRN Reason: Nasal congestion Last Admin: 12/17/18 15:34 Dose: 1 spr Guaifenesin (Mucinex La) 600 mg PO Q8 PRN PRN Reason: Cough Last Admin: 12/10/18 04:12 Dose: 600 mg Guaifenesin/Dextromethorphan (Robitussin Dm) 5 ml PO Q4 PRN PRN Reason: Cough Last Admin: 12/17/18 09:06 Dose: 5 ml Home Med (Sirolimus [Sirolimus]) 1 mg PO DAILY@0900 [facility] Last Admin: 12/17/18 09:05 Dose: 1 mg Hydrocortisone (Cortef) 20 mg PO QAM [facility] Hydrocortisone (Cortef) 10 mg PO QPM [facility] Last Admin: 12/17/18 18:39 Dose: 10 mg Loratadine (Claritin) 10 mg PO Q12 PRN PRN Reason: Allergy symptoms Last Admin: 12/17/18 09:05 Dose: 10 mg Oxycodone/Acetaminophen (Percocet 5/325 Mg Tab) 1 tab PO Q6 PRN PRN Reason: Other Stop: 12/19/18 03:02 Last Admin: 12/18/18 06:27 Dose: 1 tab Pantoprazole Sodium (Protonix Ec Tab) 40 mg PO DAILY [facility] Last Admin: 12/17/18 09:18 Dose: 40 mg - Labs Labs: 12/17/18 10:00 12/17/18 10:00 - Constitutional Appears: No Acute Distress - Eye Exam Eye Exam: EOMI - Respiratory Exam Respiratory Exam: Decreased Breath Sounds - Cardiovascular Exam Cardiovascular Exam: +S1, +S2 - GI/Abdominal Exam GI & Abdominal Exam: Soft, Normal Bowel Sounds. absent: Tenderness - Neurological Exam Neurological Exam: Alert, Awake, CN II-XII Intact, Oriented x3 - Psychiatric Exam Psychiatric exam: Normal Affect, Normal Mood Assessment and Plan - Assessment and Plan (Free Text) Assessment: 58 year old female with PMHx of COPD, JIMENEZ (lymphangioleiomyomatosis), endometriosis, depression and chronic fatigue syndrome admitted for worsening shortness of breath. Plan: Advanced COPD/Lymphangioleiomyomatosis Acute on Chronic respiratory failure - on BIPAP alternating with [place] - [employer] [facility]. Interiano - c/w DuoNEB Q4 - Tapered off solumedrol - Sputum culture: yeast species - Clotrimazole 10 mg - c/w Sirolimus: from home; levels: 2.9 - c/w Diamox - F/U AM labs Chronic Pain syndrome - c/w percocet and tylenol - PT/OT Anxiety - c/w Xanax 0.25 PRN DVT prophylaxis - Lovenox 40 mg sc daily SW: Further discharge planning in progress: LTACH/BRANDEN, however, pt refusing. Case and plan d/w Dr. Tino Jones MD PGY2 <Hernan Jiménez D - Last Filed: 12/18/18 14:40> Objective - Vital Signs/Intake and Output Vital Signs (last 24 hours): Temp Pulse Resp BP Pulse Ox 97.7 F 93 H 20 126/79 96 12/18/18 07:58 12/18/18 07:58 12/18/18 07:58 12/18/18 07:58 12/18/18 07:58 - Medications Medications: Current Medications Acetaminophen (Tylenol 325mg Tab) 650 mg PO Q6 PRN PRN Reason: Pain, Mild (1-3) Acetazolamide (Diamox Sequels 500 Mg Sr Cap) 500 mg PO Q12 [facility]ISSE Last Admin: 12/18/18 09:10 Dose: 500 mg Albuterol/Ipratropium (Duoneb 3 Mg/0.5 Mg (3 Ml) Ud) 3 ml INH RQ4 DENISSE Last Admin: 12/18/18 11:19 Dose: 3 ml Albuterol/Ipratropium (Duoneb 3 Mg/0.5 Mg (3 Ml) Ud) 3 ml INH RQ4 PRN PRN Reason: Shortness of Breath Last Admin: 12/18/18 01:31 Dose: 3 ml Atorvastatin Calcium (Lipitor) 10 mg PO HS [facility]ISSE Last Admin: 12/17/18 21:51 Dose: 10 mg Clotrimazole (Mycelex Bev) 10 mg PO 5XD PRN PRN Reason: Sore Throat Last Admin: 12/18/18 09:08 Dose: 10 mg Enoxaparin Sodium (Lovenox) 40 mg SC DAILY [facility]; Protocol Last Admin: 12/18/18 09:10 Dose: 40 mg Fluticasone Propionate (Flonase) 1 spr KIRBY BID PRN PRN Reason: Nasal congestion Last Admin: 12/17/18 15:34 Dose: 1 spr Guaifenesin (Mucinex La) 600 mg PO Q8 PRN PRN Reason: Cough Last Admin: 12/10/18 04:12 Dose: 600 mg Guaifenesin/Dextromethorphan (Robitussin Dm) 5 ml PO Q4 PRN PRN Reason: Cough Last Admin: 12/18/18 09:13 Dose: 5 ml Home Med (Sirolimus [Sirolimus]) 1 mg PO DAILY@0900 [facility] Last Admin: 12/18/18 09:12 Dose: Not Given Hydrocortisone (Cortef) 20 mg PO QAM [facility] Last Admin: 12/18/18 09:09 Dose: 20 mg Hydrocortisone (Cortef) 10 mg PO QPM [facility] Last Admin: 12/17/18 18:39 Dose: 10 mg Loratadine (Claritin) 10 mg PO Q12 PRN PRN Reason: Allergy symptoms Last Admin: 12/17/18 09:05 Dose: 10 mg Oxycodone/Acetaminophen (Percocet 5/325 Mg Tab) 1 tab PO Q6 PRN PRN Reason: Other Stop: 12/19/18 03:02 Last Admin: 12/18/18 06:27 Dose: 1 tab Pantoprazole Sodium (Protonix Ec Tab) 40 mg PO DAILY [facility] Last Admin: 12/18/18 09:11 Dose: 40 mg - Labs Labs: 12/17/18 10:00 12/17/18 10:00 Attending/Attestation - Attestation I have personally seen and examined this patient.: Yes I have fully participated in the care of the patient.: Yes I have reviewed all pertinent clinical information, including history, physical exam and plan: Yes Notes (Text): 12/18/18 14:38 Patient seen and examined with resident. Case discussed and agreed with assessment and plan.
[2018-12-18] MEDS ORDERED: Potassium Chloride 20 mEq/15 ml LIQ UD PO ONE (07:11)
[2018-12-18] MEDS: acetaZOLAMIDE 500 mg SR Cap PO SCH ×2 (09:10→21:25)
[2018-12-18] MEDS: Enoxaparin 40 mg Syringe SC SCH (09:10)
[2018-12-18] MEDS: Pantoprazole 40 mg EC Tab PO SCH (09:11)
[2018-12-18] MEDS: SIROLIMUS 1 MG PO SCH (09:12)
[2018-12-18] MEDS: guaiFENesin DM 100 mg-10 mg/5 ml UD PO PRN (09:13)
--- NOTE | 2018-12-18 11:44 | CP.PCM.PN ---
Subjective - Date & Time of Evaluation Date of Evaluation: 12/18/18 Time of Evaluation: 11:44 - Subjective Subjective: Appears stronger, using all DME as instructed. Vital signs have been stable, she remains afebrile. Mentation is clear, speech is fluent. Dependant edema remains ++ bilaterally, no cyanosis. Neck is supple and trachea middline. Breath sounds are diminished and Inspiratory phase is shortened. No audible wheezes, no bronchial breath sounds, few wheezes (dry). Labs show a very low AM cortisol level. Explained to patient the need to discuss further with endocrine regarding steroid tapering. Plan is for discharge from hospital tomorrow morning. Objective - Vital Signs/Intake and Output Vital Signs (last 24 hours): Temp Pulse Resp BP Pulse Ox 97.7 F 93 H 20 126/79 96 12/18/18 07:58 12/18/18 07:58 12/18/18 07:58 12/18/18 07:58 12/18/18 07:58 - Medications Medications: Current Medications Acetaminophen (Tylenol 325mg Tab) 650 mg PO Q6 PRN PRN Reason: Pain, Mild (1-3) Acetazolamide (Diamox Sequels 500 Mg Sr Cap) 500 mg PO Q12 [facility] Last Admin: 12/18/18 09:10 Dose: 500 mg Albuterol/Ipratropium (Duoneb 3 Mg/0.5 Mg (3 Ml) Ud) 3 ml INH RQ4 [facility] Last Admin: 12/18/18 11:19 Dose: 3 ml Albuterol/Ipratropium (Duoneb 3 Mg/0.5 Mg (3 Ml) Ud) 3 ml INH RQ4 PRN PRN Reason: Shortness of Breath Last Admin: 12/18/18 01:31 Dose: 3 ml Atorvastatin Calcium (Lipitor) 10 mg PO HS [facility] Last Admin: 12/17/18 21:51 Dose: 10 mg Clotrimazole (Mycelex Bev) 10 mg PO 5XD PRN PRN Reason: Sore Throat Last Admin: 12/18/18 09:08 Dose: 10 mg Enoxaparin Sodium (Lovenox) 40 mg SC DAILY [facility]; Protocol Last Admin: 12/18/18 09:10 Dose: 40 mg Fluticasone Propionate (Flonase) 1 spr KIRBY BID PRN PRN Reason: Nasal congestion Last Admin: 12/17/18 15:34 Dose: 1 spr Guaifenesin (Mucinex La) 600 mg PO Q8 PRN PRN Reason: Cough Last Admin: 12/10/18 04:12 Dose: 600 mg Guaifenesin/Dextromethorphan (Robitussin Dm) 5 ml PO Q4 PRN PRN Reason: Cough Last Admin: 12/18/18 09:13 Dose: 5 ml Home Med (Sirolimus [Sirolimus]) 1 mg PO DAILY@0900 [facility] Last Admin: 12/18/18 09:12 Dose: Not Given Hydrocortisone (Cortef) 20 mg PO QAM [facility] Last Admin: 12/18/18 09:09 Dose: 20 mg Hydrocortisone (Cortef) 10 mg PO QPM [facility] Last Admin: 12/17/18 18:39 Dose: 10 mg Loratadine (Claritin) 10 mg PO Q12 PRN PRN Reason: Allergy symptoms Last Admin: 12/17/18 09:05 Dose: 10 mg Oxycodone/Acetaminophen (Percocet 5/325 Mg Tab) 1 tab PO Q6 PRN PRN Reason: Other Stop: 12/19/18 03:02 Last Admin: 12/18/18 06:27 Dose: 1 tab Pantoprazole Sodium (Protonix Ec Tab) 40 mg PO DAILY [facility] Last Admin: 12/18/18 09:11 Dose: 40 mg - Labs Labs: 12/17/18 10:00 12/17/18 10:00 Assessment and Plan (1) COPD (chronic obstructive pulmonary disease) Status: Chronic (2) Depressed mood Status: Acute (3) SOB (shortness of breath) Status: Chronic (4) Lymphangioleiomyomatosis Status: Chronic
--- NOTE | 2018-12-18 19:06 | PN ---
DATE: 12/18/2018 ENDOCRINOLOGY FOLLOWUP NOTE LOCATION: In room 657. SUBJECTIVE: This is a 58-year-old female with recent overt hypoadrenalism or secondary adrenal insufficiency, presenting here with acute exacerbation of COPD, on oral steroid therapy as given. LABORATORY DATA: Her chemistry today showed a BUN of 20, sodium 143, potassium 3.0, chloride 102, CO2 of 33, glucose 112 and creatinine 0.6. Her serum cortisol as reported initially was very low at 1.1 mcg/dL. ASSESSMENT AND PLAN: This is a 58-year-old female with secondary hypoadrenalism or adrenal insufficiency related to long-term steroid dependence as noted. She clearly is steroid dependent at this time considering that she has been on long-term steroid therapy as noted. We will obtain serial thyroid studies and serial cortisol levels, and adjust her dose regimen accordingly. We will obtain serial cortisol levels and adjust and titrate her dose regimen accordingly. We will follow up with you. Jonna Serna MD
[2018-12-19] MEDS: Albuterol-Ipratrop 3 mg / 0.5 (3 ml) UD INH SCH ×4 (05:06→15:35)
[2018-12-19] MEDS: guaiFENesin DM 100 mg-10 mg/5 ml UD PO PRN (06:10)
[2018-12-19 06:25] LABS: HEMOGLOBIN 12.3 g/dL (12.0-16.0); MEAN CELL VOLUME 86.9 fl (81.0-99.0); MEAN CORPUSCULAR HEMOGLOBIN 26.4 pg (27.0-31.0); MEAN CORPUSCULAR HGB CONC 30.4 g/dL (33.0-37.0); RBC 4.64 Mil/uL (3.80-5.20)
[2018-12-19 06:48] LABS: BLOOD UREA NITROGEN 18 mg/dl (7-17); CALCIUM 9.3 mg/dL (8.4-10.2); GFR NON-AFRICAN AMERICAN > 60
[2018-12-19] MEDS: Oxycodone/Acetaminophen 5/325 mg Tab PO PRN (08:50)
[2018-12-19] MEDS: Pantoprazole 40 mg EC Tab PO SCH (08:51)
[2018-12-19] MEDS: Enoxaparin 40 mg Syringe SC SCH (08:52)
[2018-12-19] MEDS: acetaZOLAMIDE 500 mg SR Cap PO SCH (08:52)
--- NOTE | 2018-12-19 10:11 | CP.PCM.PN ---
Subjective - Date & Time of Evaluation Date of Evaluation: 12/19/18 Time of Evaluation: 08:15 Objective - Vital Signs/Intake and Output Vital Signs (last 24 hours): Temp Pulse Resp BP Pulse Ox 98.1 F 97 H 22 126/87 97 12/19/18 00:00 12/19/18 08:41 12/19/18 08:38 12/19/18 08:38 12/19/18 08:38 - Medications Medications: Current Medications Acetaminophen (Tylenol 325mg Tab) 650 mg PO Q6 PRN PRN Reason: Pain, Mild (1-3) Acetazolamide (Diamox Sequels 500 Mg Sr Cap) 500 mg PO Q12 [facility] Last Admin: 12/19/18 08:52 Dose: 500 mg Albuterol/Ipratropium (Duoneb 3 Mg/0.5 Mg (3 Ml) Ud) 3 ml INH RQ4 [facility] Last Admin: 12/19/18 07:58 Dose: 3 ml Albuterol/Ipratropium (Duoneb 3 Mg/0.5 Mg (3 Ml) Ud) 3 ml INH RQ4 PRN PRN Reason: Shortness of Breath Last Admin: 12/18/18 01:31 Dose: 3 ml Atorvastatin Calcium (Lipitor) 10 mg PO HS [facility] Last Admin: 12/18/18 21:25 Dose: 10 mg Clotrimazole (Mycelex Bev) 10 mg PO 5XD PRN PRN Reason: Sore Throat Last Admin: 12/19/18 08:51 Dose: 10 mg Enoxaparin Sodium (Lovenox) 40 mg SC DAILY [facility]; Protocol Last Admin: 12/19/18 08:52 Dose: 40 mg Fluticasone Propionate (Flonase) 1 spr KIRBY BID PRN PRN Reason: Nasal congestion Last Admin: 12/17/18 15:34 Dose: 1 spr Guaifenesin (Mucinex La) 600 mg PO Q8 PRN PRN Reason: Cough Last Admin: 12/10/18 04:12 Dose: 600 mg Guaifenesin/Dextromethorphan (Robitussin Dm) 5 ml PO Q4 PRN PRN Reason: Cough Last Admin: 12/19/18 06:10 Dose: 5 ml Home Med (Sirolimus [Sirolimus]) 1 mg PO DAILY@0900 [facility] Last Admin: 12/18/18 09:12 Dose: Not Given Hydrocortisone (Cortef) 20 mg PO QAM [facility] Last Admin: 12/19/18 08:53 Dose: 20 mg Hydrocortisone (Cortef) 10 mg PO QPM [facility] Last Admin: 12/18/18 19:33 Dose: 10 mg Loratadine (Claritin) 10 mg PO Q12 PRN PRN Reason: Allergy symptoms Last Admin: 12/17/18 09:05 Dose: 10 mg Pantoprazole Sodium (Protonix Ec Tab) 40 mg PO DAILY [facility] Last Admin: 12/19/18 08:51 Dose: 40 mg - Labs Labs: 12/19/18 06:00 12/19/18 06:00
--- NOTE | 2018-12-19 11:48 | CP.PCM.PN ---
Subjective - Date & Time of Evaluation Date of Evaluation: 12/19/18 Time of Evaluation: 11:39 - Subjective Subjective: For discharge today. Discussed with Endocrine; will use hydrocortisone 5MG tablets with a slow tapering schedule and monthly monitoring of AM cortisol levels. Explained the plan to the patient who understands the process. Will give her an prescription for repeat AM cortisol to be done in 4 weeks. Pharmacy has been contacted and prescriptions done. All other maintenance medications, with the exception of prednisone, will remain unchanged. Objective - Vital Signs/Intake and Output Vital Signs (last 24 hours): Temp Pulse Resp BP Pulse Ox 98.1 F 97 H 22 126/87 97 12/19/18 00:00 12/19/18 08:41 12/19/18 08:38 12/19/18 08:38 12/19/18 08:38 - Medications Medications: Current Medications Acetaminophen (Tylenol 325mg Tab) 650 mg PO Q6 PRN PRN Reason: Pain, Mild (1-3) Acetazolamide (Diamox Sequels 500 Mg Sr Cap) 500 mg PO Q12 [facility] Last Admin: 12/19/18 08:52 Dose: 500 mg Albuterol/Ipratropium (Duoneb 3 Mg/0.5 Mg (3 Ml) Ud) 3 ml INH RQ4 [facility] Last Admin: 12/19/18 11:29 Dose: 3 ml Albuterol/Ipratropium (Duoneb 3 Mg/0.5 Mg (3 Ml) Ud) 3 ml INH RQ4 PRN PRN Reason: Shortness of Breath Last Admin: 12/18/18 01:31 Dose: 3 ml Atorvastatin Calcium (Lipitor) 10 mg PO HS [facility] Last Admin: 12/18/18 21:25 Dose: 10 mg Clotrimazole (Mycelex Bev) 10 mg PO 5XD PRN PRN Reason: Sore Throat Last Admin: 12/19/18 08:51 Dose: 10 mg Enoxaparin Sodium (Lovenox) 40 mg SC DAILY [facility]; Protocol Last Admin: 12/19/18 08:52 Dose: 40 mg Fluticasone Propionate (Flonase) 1 spr KIRBY BID PRN PRN Reason: Nasal congestion Last Admin: 12/17/18 15:34 Dose: 1 spr Guaifenesin (Mucinex La) 600 mg PO Q8 PRN PRN Reason: Cough Last Admin: 12/10/18 04:12 Dose: 600 mg Guaifenesin/Dextromethorphan (Robitussin Dm) 5 ml PO Q4 PRN PRN Reason: Cough Last Admin: 12/19/18 06:10 Dose: 5 ml Home Med (Sirolimus [Sirolimus]) 1 mg PO DAILY@0900 [facility] Last Admin: 12/18/18 09:12 Dose: Not Given Hydrocortisone (Cortef) 20 mg PO QAM [facility] Last Admin: 12/19/18 08:53 Dose: 20 mg Hydrocortisone (Cortef) 10 mg PO QPM [facility] Last Admin: 12/18/18 19:33 Dose: 10 mg Loratadine (Claritin) 10 mg PO Q12 PRN PRN Reason: Allergy symptoms Last Admin: 12/17/18 09:05 Dose: 10 mg Pantoprazole Sodium (Protonix Ec Tab) 40 mg PO DAILY [facility] Last Admin: 12/19/18 08:51 Dose: 40 mg - Labs Labs: 12/19/18 06:00 12/19/18 06:00 Assessment and Plan (1) COPD (chronic obstructive pulmonary disease) Status: Chronic (2) Depressed mood Status: Acute (3) SOB (shortness of breath) Status: Chronic (4) Lymphangioleiomyomatosis Status: Chronic
--- NOTE | 2018-12-19 12:27 | CP.PCM.DIS ---
<Keith Jones - Last Filed: 12/19/18 13:26> Provider - Provider Date of Admission: 12/08/18 22:00 Attending physician: Martin Mascorro MD Consults: 12/08/18 23:29 Pulmonology Consult Routine Comment: Consulting Provider: Konstantin Benites I Consulting Physician: Konstantin Benites I Reason for Consult: Worsening dyspnea, COPD 12/15/18 14:41 Endocrinology Consult Routine Comment: Consulting Provider: Jonna Serna Consulting Physician: Jonna Serna Reason for Consult: has been on roasterman prednisone-?adrenal status Time Spent in preparation of Discharge (in minutes): 30 Hospital Course - Lab Results Lab Results: Micro Results 12/10/18 07:55 Sputum Gram Stain - Final 12/10/18 07:55 Sputum Sputum Culture - Final Yeast Species Most Recent Lab Values WBC 12.0 K/uL (4.8-10.8) H 12/19/18 06:00 RBC 4.64 Mil/uL (3.80-5.20) 12/19/18 06:00 Hgb 12.3 g/dL (12.0-16.0) 12/19/18 06:00 Hct 40.3 % (34.0-47.0) 12/19/18 06:00 MCV 86.9 fl (81.0-99.0) 12/19/18 06:00 MCH 26.4 pg (27.0-31.0) L 12/19/18 06:00 MCHC 30.4 g/dL (33.0-37.0) L 12/19/18 06:00 RDW 16.0 % (11.5-14.5) H 12/19/18 06:00 Plt Count 392 K/uL (130-400) 12/19/18 06:00 MPV 7.5 fl (7.2-11.7) 12/09/18 05:31 Neut % (Auto) 85.9 % (50.0-75.0) H 12/09/18 05:31 Lymph % (Auto) 6.5 % (20.0-40.0) L 12/09/18 05:31 [place] % (Auto) 7.5 % (0.0-10.0) 12/09/18 05:31 Eos % (Auto) 0.0 % (0.0-4.0) 12/09/18 05:31 Baso % (Auto) 0.1 % (0.0-2.0) 12/09/18 05:31 Neut # (Auto) 8.5 K/uL (1.8-7.0) H 12/09/18 05:31 Lymph # (Auto) 0.6 K/uL (1.0-4.3) L 12/09/18 05:31 [place] # (Auto) 0.7 K/uL (0.0-0.8) 12/09/18 05:31 Eos # (Auto) 0.0 K/uL (0.0-0.7) 12/09/18 05:31 Baso # (Auto) 0.0 K/uL (0.0-0.2) 12/09/18 05:31 Neutrophils % (Manual) 85 % (42-75) H 12/08/18 16:10 Band Neutrophils % 3 % (0-2) H 12/08/18 16:10 Lymphocytes % (Manual) 5 % (20-50) L 12/08/18 16:10 Monocytes % (Manual) 7 % (0-10) 12/08/18 16:10 Platelet Estimate Normal (NORMAL) 12/08/18 16:10 Anisocytosis (manual) Slight 12/08/18 16:10 pCO2 66 mm/Hg (35-45) H 12/09/18 02:23 pO2 74 mm/Hg (80-100) L 12/09/18 02:23 HCO3 30.0 mmol/L (21-28) H 12/09/18 02:23 ABG pH 7.33 (7.35-7.45) L 12/09/18 02:23 ABG Total CO2 36.8 mmol/L (22-28) H 12/09/18 02:23 ABG O2 Saturation 96.9 % (95-98) 12/09/18 02:23 ABG Base Excess 6.6 mmol/L (-2.0-3.0) H 12/09/18 02:23 Contreras Test Yes 12/09/18 02:23 ABG Potassium 3.8 mmol/L (3.6-5.2) 12/09/18 02:23 A-a O2 Difference 72.0 mm/Hg 12/09/18 02:23 Sodium 143.0 mmol/L (132-148) 12/09/18 02:23 Chloride 108.0 mmol/L (98-107) H 12/09/18 02:23 Glucose 218 mg/dL (65-105) H 12/09/18 02:23 Lactate 1.5 mmol/L (0.7-2.1) 12/09/18 02:23 Vent Mode 3l nc 12/09/18 02:23 FiO2 32.0 % 12/09/18 02:23 Sodium 139 mmol/l (132-148) 12/19/18 06:00 Potassium 3.4 MMOL/L (3.6-5.0) L 12/19/18 06:00 Chloride 101 mmol/L (98-107) 12/19/18 06:00 Carbon Dioxide 33 mmol/L (22-30) H 12/19/18 06:00 Anion Gap 8 (10-20) L 12/19/18 06:00 BUN 18 mg/dl (7-17) H 12/19/18 06:00 Creatinine 0.7 mg/dl (0.7-1.2) 12/19/18 06:00 Est GFR ( Amer) > 60 12/19/18 06:00 Est GFR (Non-Af Amer) > 60 12/19/18 06:00 Random Glucose 85 mg/dL (65-105) 12/19/18 06:00 Hemoglobin A1c 6.4 % (4.2-6.5) 12/16/18 10:28 Calcium 9.3 mg/dL (8.4-10.2) 12/19/18 06:00 Magnesium 2.4 MG/DL (1.6-2.3) H 12/16/18 05:30 Total Bilirubin 0.6 mg/dl (0.2-1.3) 12/16/18 05:30 AST 20 U/L (14-36) 12/16/18 05:30 ALT 28 U/L (9-52) 12/16/18 05:30 Alkaline Phosphatase 77 U/L (38-126) 12/16/18 05:30 Total Protein 6.6 G/DL (6.3-8.2) 12/16/18 05:30 Albumin 3.8 g/dL (3.5-5.0) 12/16/18 05:30 Globulin 2.8 gm/dL (2.2-3.9) 12/16/18 05:30 Albumin/Globulin Ratio 1.3 (1.0-2.1) 12/16/18 05:30 Triglycerides 97 mg/DL (0-149) 12/16/18 05:30 Cholesterol 227 mg/dL (0-199) H 12/16/18 05:30 LDL Cholesterol Direct 84 mg/dL (0-129) 12/16/18 05:30 HDL Cholesterol 105 MG/DL (30-70) H 12/16/18 05:30 Procalcitonin < 0.05 NG/ML (0.19-0.49) L 12/09/18 05:31 TSH 3rd Generation 1.97 mIU/ML (0.46-4.68) 12/16/18 05:30 Cortisol AM Sample 4.4 ug/dL (4.46-22.7) L 12/19/18 06:00 ACTH <5 pg/mL (6-50) L 12/16/18 05:30 Arterial Blood Potassium 3.8 mmol/L (3.6-5.2) 12/09/18 02:23 Sirolimus 2.9 mcg/L (3.0-18.0) L* 12/09/18 11:00 - Hospital Course Hospital Course: 58 year old female with PMHx of COPD, JIMENEZ (lymphangioleiomyomatosis), endometriosis, depression and chronic fatigue syndrome admitted for worsening shortness of breath. Advanced COPD/Lymphangioleiomyomatosis Acute on Chronic respiratory failure - BIPAP alternating with [place] - Sales Exec Dr. Laisha Marie Q4 - Tapered off solumedrol - Sputum culture: yeast species - Clotrimazole 10 mg - Sirolimus levels: 2.9 - Diamox Chronic Pain syndrome - percocet and tylenol - PT/OT Anxiety - Xanax 0.25 PRN Pt dicharged home with hydrocortisone 5 mg tabs and script for f/u am cortisol levels Script provided for VNS and PT for strengthening 2/2 lymphangioleiomyomatosis. Pt to f/u with pmd Dr. Cardona, Dr. Interiano and Dr. Serna. Case and plan d/w Dr. Tino Jones MD PGY2 Discharge Exam - Head Exam Head Exam: ATRAUMATIC, NORMOCEPHALIC - Eye Exam Eye Exam: EOMI - ENT Exam ENT Exam: Mucous Membranes Moist - Respiratory Exam Respiratory Exam: Decreased Breath Sounds - Cardiovascular Exam Cardiovascular Exam: +S1, +S2 - GI/Abdominal Exam GI & Abdominal Exam: Normal Bowel Sounds, Soft - Neurological Exam Neurological exam: Alert, CN II-XII Intact, Oriented x3 - Psychiatric Exam Psychiatric exam: Normal Affect, Normal Mood Discharge Plan - Discharge Medications Prescriptions: Hydrocortisone [Cortef] 10 mg PO QPM #14 tab Hydrocortisone [Cortef] 20 mg PO QAM #14 tab - Follow Up Plan Condition: FAIR Disposition: HOME/ ROUTINE Instructions: Exacerbation of COPD (DC) Additional Instructions: follow up with Dr. Cardona 1 week [facility] visiting nurse [phone] follow up with outpatient physical therapy Referrals: Jonna Serna MD [Medical Doctor] - Randy Interiano MD [Staff Provider] - Haleigh Cardona MD [Family Provider] - Konstantin Benites MD [Staff Provider] - <Hernan Jiménez D - Last Filed: 12/19/18 14:32> Provider - Provider Date of Admission: 12/08/18 22:00 Attending physician: Martin Mascorro MD Consults: 12/08/18 23:29 Pulmonology Consult Routine Comment: Consulting Provider: Konstantin Benites I Consulting Physician: Konstantin Benites I Reason for Consult: Worsening dyspnea, COPD 12/15/18 14:41 Endocrinology Consult Routine Comment: Consulting Provider: Jonna Serna Consulting Physician: Jonna Serna Reason for Consult: has been on assisted prednisone-?adrenal status Hospital Course - Lab Results Lab Results: Micro Results 12/10/18 07:55 Sputum Gram Stain - Final 12/10/18 07:55 Sputum Sputum Culture - Final Yeast Species Most Recent Lab Values WBC 12.0 K/uL (4.8-10.8) H 12/19/18 06:00 RBC 4.64 Mil/uL (3.80-5.20) 12/19/18 06:00 Hgb 12.3 g/dL (12.0-16.0) 12/19/18 06:00 Hct 40.3 % (34.0-47.0) 12/19/18 06:00 MCV 86.9 fl (81.0-99.0) 12/19/18 06:00 MCH 26.4 pg (27.0-31.0) L 12/19/18 06:00 MCHC 30.4 g/dL (33.0-37.0) L 12/19/18 06:00 RDW 16.0 % (11.5-14.5) H 12/19/18 06:00 Plt Count 392 K/uL (130-400) 12/19/18 06:00 MPV 7.5 fl (7.2-11.7) 12/09/18 05:31 Neut % (Auto) 85.9 % (50.0-75.0) H 12/09/18 05:31 Lymph % (Auto) 6.5 % (20.0-40.0) L 12/09/18 05:31 [place] % (Auto) 7.5 % (0.0-10.0) 12/09/18 05:31 Eos % (Auto) 0.0 % (0.0-4.0) 12/09/18 05:31 Baso % (Auto) 0.1 % (0.0-2.0) 12/09/18 05:31 Neut # (Auto) 8.5 K/uL (1.8-7.0) H 12/09/18 05:31 Lymph # (Auto) 0.6 K/uL (1.0-4.3) L 12/09/18 05:31 [place] # (Auto) 0.7 K/uL (0.0-0.8) 12/09/18 05:31 Eos # (Auto) 0.0 K/uL (0.0-0.7) 12/09/18 05:31 Baso # (Auto) 0.0 K/uL (0.0-0.2) 12/09/18 05:31 Neutrophils % (Manual) 85 % (42-75) H 12/08/18 16:10 Band Neutrophils % 3 % (0-2) H 12/08/18 16:10 Lymphocytes % (Manual) 5 % (20-50) L 12/08/18 16:10 Monocytes % (Manual) 7 % (0-10) 12/08/18 16:10 Platelet Estimate Normal (NORMAL) 12/08/18 16:10 Anisocytosis (manual) Slight 12/08/18 16:10 pCO2 66 mm/Hg (35-45) H 12/09/18 02:23 pO2 74 mm/Hg (80-100) L 12/09/18 02:23 HCO3 30.0 mmol/L (21-28) H 12/09/18 02:23 ABG pH 7.33 (7.35-7.45) L 12/09/18 02:23 ABG Total CO2 36.8 mmol/L (22-28) H 12/09/18 02:23 ABG O2 Saturation 96.9 % (95-98) 12/09/18 02:23 ABG Base Excess 6.6 mmol/L (-2.0-3.0) H 12/09/18 02:23 Contreras Test Yes 12/09/18 02:23 ABG Potassium 3.8 mmol/L (3.6-5.2) 12/09/18 02:23 A-a O2 Difference 72.0 mm/Hg 12/09/18 02:23 Sodium 143.0 mmol/L (132-148) 12/09/18 02:23 Chloride 108.0 mmol/L (98-107) H 12/09/18 02:23 Glucose 218 mg/dL (65-105) H 12/09/18 02:23 Lactate 1.5 mmol/L (0.7-2.1) 12/09/18 02:23 Vent Mode 3l nc 12/09/18 02:23 FiO2 32.0 % 12/09/18 02:23 Sodium 139 mmol/l (132-148) 12/19/18 06:00 Potassium 3.4 MMOL/L (3.6-5.0) L 12/19/18 06:00 Chloride 101 mmol/L (98-107) 12/19/18 06:00 Carbon Dioxide 33 mmol/L (22-30) H 12/19/18 06:00 Anion Gap 8 (10-20) L 12/19/18 06:00 BUN 18 mg/dl (7-17) H 12/19/18 06:00 Creatinine 0.7 mg/dl (0.7-1.2) 12/19/18 06:00 Est GFR ( Amer) > 60 12/19/18 06:00 Est GFR (Non-Af Amer) > 60 12/19/18 06:00 Random Glucose 85 mg/dL (65-105) 12/19/18 06:00 Hemoglobin A1c 6.4 % (4.2-6.5) 12/16/18 10:28 Calcium 9.3 mg/dL (8.4-10.2) 12/19/18 06:00 Magnesium 2.4 MG/DL (1.6-2.3) H 12/16/18 05:30 Total Bilirubin 0.6 mg/dl (0.2-1.3) 12/16/18 05:30 AST 20 U/L (14-36) 12/16/18 05:30 ALT 28 U/L (9-52) 12/16/18 05:30 Alkaline Phosphatase 77 U/L (38-126) 12/16/18 05:30 Total Protein 6.6 G/DL (6.3-8.2) 12/16/18 05:30 Albumin 3.8 g/dL (3.5-5.0) 12/16/18 05:30 Globulin 2.8 gm/dL (2.2-3.9) 12/16/18 05:30 Albumin/Globulin Ratio 1.3 (1.0-2.1) 12/16/18 05:30 Triglycerides 97 mg/DL (0-149) 12/16/18 05:30 Cholesterol 227 mg/dL (0-199) H 12/16/18 05:30 LDL Cholesterol Direct 84 mg/dL (0-129) 12/16/18 05:30 HDL Cholesterol 105 MG/DL (30-70) H 12/16/18 05:30 Procalcitonin < 0.05 NG/ML (0.19-0.49) L 12/09/18 05:31 TSH 3rd Generation 1.97 mIU/ML (0.46-4.68) 12/16/18 05:30 Cortisol AM Sample 4.4 ug/dL (4.46-22.7) L 12/19/18 06:00 ACTH <5 pg/mL (6-50) L 12/16/18 05:30 Arterial Blood Potassium 3.8 mmol/L (3.6-5.2) 12/09/18 02:23 Sirolimus 2.9 mcg/L (3.0-18.0) L* 12/09/18 11:00 Attending/Attestation - Attestation I have personally seen and examined this patient.: Yes I have fully participated in the care of the patient.: Yes I have reviewed all pertinent clinical information, including history, physical exam and plan: Yes Notes (Text): 12/19/18 14:31 Patient seen and examined with resident. Case discussed and agreed with assessment. Patient discharged in stable condition and will follow up with Dr Interiano and Dr Serna.
[2018-12-19 16:28] VITALS: BP 118/72; PULSE 112; RESP 20; TEMP 98.3; O2SAT 93
[2018-12-19] MEDS: SIROLIMUS 1 MG PO SCH (16:32)
--- NOTE | 2018-12-20 08:29 | PN ---
DATE: 12/15/18 ENDOCRINOLOGY FOLLOWUP NOTE LOCATION: 7. SUBJECTIVE: This is a 58-year-old female with recent evaluation for possible adrenal insufficiency because of persistent constitutional symptoms and marked generalized body weakness with easy fatigability and suboptimal energy level despite steroid dose adjustments given by her customer relationship specialist as noted. She remains clinically euthyroid at this time. However, biochemically, her serum cortisol levels have been extremely low as initially reported at 1.1 mcg per dL. Her ACTH levels are also extremely low at less than 5 as noted. Her repeat serum cortisol today is 4.4 following the initiation of modified steroid replacement therapy as given. Her chemistry showed a BUN of 18, sodium 139, potassium 3.4, chloride 101, CO2 is 33, glucose is 85, and creatinine is 0.7. 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 She also has significant chronic obstructive lung disease from prior nicotine dependence as noted. Moreover, she also has JIMENEZ/lymphangioleiomyomatosis and will possibly be going for a lung transplant if she qualifies accordingly. Moreover, she has had multiple admissions for exacerbations of chronic obstructive pulmonary disease as noted. PLAN OF MANAGEMENT: We will continue the modified oral steroid replacement as given with hydrocortisone given as 20 mg every 08:00 a.m. daily and 10 mg every 06:00 p.m. daily as ordered. A lengthy bedside discussion has been undertaken with the patient and also with the customer relationship specialist, Dr. Randy Interiano regarding the closer metabolic followup of her cortisol levels and steroid dose adjustments accordingly to optimize that only her energy level, but also her metabolic control otherwise. We will follow and advise accordingly. Jonna Serna MD
== END 2018-12-19 18:20 | disposition home health service (06) | DRG 189 ==
LOC: H.ER 16:32 → H.ERHOLD 22:00 → H.MEDSURG1 23:13
PROVIDERS: ADMIT Internal Medicine; ATTEND Internal Medicine
PROC: 5A09457 Assistance with Respiratory Ventilation, 24-96 Consecutive Hours, Continuous Positive Airway Pressure (ICD-10-PCS; principal; 2018-12-08)
PROC: 3E0F73Z Introduction of Anti-inflammatory into Respiratory Tract, Via Natural or Artificial Opening (ICD-10-PCS; 2018-12-08)
PROC: 3E0F7GC Introduction of Other Therapeutic Substance into Respiratory Tract, Via Natural or Artificial Opening (ICD-10-PCS; 2018-12-08)
DX: J96.21 Acute and chronic respiratory failure with hypoxia (principal); J84.81 Lymphangioleiomyomatosis; J44.1 Chronic obstructive pulmonary disease with (acute) exacerbation; E27.40 Unspecified adrenocortical insufficiency; E27.3 Drug-induced adrenocortical insufficiency; J96.22 Acute and chronic respiratory failure with hypercapnia; T38.0X5A Adverse effect of glucocorticoids and synthetic analogues, initial encounter; G89.4 Chronic pain syndrome; R53.82 Chronic fatigue, unspecified; F41.1 Generalized anxiety disorder; F32.9 Major depressive disorder, single episode, unspecified; Z91.19 Patient's noncompliance with other medical treatment and regimen; Z99.81 Dependence on supplemental oxygen; Z79.52 Long term (current) use of systemic steroids; Z87.891 Personal history of nicotine dependence; Z87.01 Personal history of pneumonia (recurrent); Z88.2 Allergy status to sulfonamides